=== PATIENT | female | born 1940 | race Hispanic/Latino ===

== ENCOUNTER 2018-06-01 17:20 | Emergency (ER) | payer OTHER ==
--- OUTSIDE RECORDS SUMMARY | 2018-06-01 17:22 | XMS REPORT | Continuity of Care Document ---
:1940 Author Organization Interface Problems Problem Status Onset Classification Date Comments Source Date Reported M54.12 Active 10/02/19 [place] [id number] [place] Diabetes Active Problem 10/16/2015 [facility] Diabetes Resolved Problem 10/16/2015 [facility] Gastric reflux Active Problem 10/16/2015 [facility] HTN - Resolved Problem 10/16/2015 [facility] Hypertension Active Problem 10/16/2015 [facility] RADICULOPATHY, Active [facility] C[facility] [place] Medications Medication Details Route Status Patient Ordering Order Source Instructions Provider Date Zofran 4 mg, 2 mL, Inactive Ortho Route: IVP, 016 and Drug form: INJ, Spine ONCE, Start date: 10/13/15 12:26:00 CDT, Stop date: 10/13/15 12:26:00 CDTNotes: (Same as: Zofran) MEDICATION WASTE Product Size: 4 mg Product Wasted: ___ mg Zofran 4 mg, 2 mL, Inactive Ortho Route: IVP, 016 and Drug form: INJ, Spine ONCE, Start date: 10/13/15 11:20:00 CDT, Stop date: 10/13/15 11:20:00 CDTNotes: (Same as: Zofran) MEDICATION WASTE Product Size: 4 mg Product Wasted: ___ mg hydrALAZINE 5 mg, 0.25 mL, Inactive Ortho Route: IVP, 016 and Drug form: INJ, Spine Q5Min, PRN Hypertension, Start date: 10/13/15 10:50:00 CDT, Stop date: 10/13/15 21:00:00 CDTNotes: (Same as: Apresoline) Push over 5 minutes midazolam 1 mg, 1 mL, Inactive Ortho Route: IVP, 016 and Drug form: INJ, Spine Q5Min, PRN Sedation, Start date: 10/13/15 10:48:00 CDT, Stop date: 10/13/15 21:00:00 CDTNotes: (Same as: Versed) MEDICATION WASTE Product Size: 2 mg Product Wasted: ___ mg Sublimaze 50 microgram, 1 Inactive Ortho mL, Route: IVP, 016 and Drug form: INJ, Spine Q5Min, PRN Sedation, Start date: 10/13/15 10:43:00 CDT, Stop date: 10/13/15 21:00:00 CDTNotes: (Same as: Sublimaze) Preservative free. Allergies, Adverse Reactions, Alerts Substance Category Reaction Severity Reaction Status Date Comments Source type Reported Immunizations Immunization Date Given Site Status Last Updated Comments Source Results Order Name Results Value Reference Date Interpretation Comments Source Range ELECTROLYTE POC 4.6 meq/L 3.5 - 5.1 10/12 Orth[facility] S Potassium /2015 and Spine ELECTROLYTE POC Sodium 137 meq/L 135 - 145 10/12 [facility] and Spine ELECTROLYTE POC Glucose 172 mg/dL 70 - 99 10/12 Ortho S /2015 and Spine ELECTROLYTE POC Ion Ca 1.23 mMol/L 1.05 - 10/12 Ortho S 1.25 and Spine ELECTROLYTE POC 17.7 g/dL 12.0 - 10/12 Ortho S Hemoglobin 16.0 and Spine ELECTROLYTE POC 52.0 % 36.0 - 10/12 Ortho S Hematocrit 48.0 and Spine ELECTROLYTE POC AGAP 17.0 meq/L 10.0 - 10/12 Ortho S 20.0 and Spine ELECTROLYTE eGFR 62 10/12 Result Comment: The eGFR is calculated using the CKD-EPI formula. In most young, healthy individuals the eGFR will be >90 mL/ min/1.73m2. The eGFR declines with age. An eGFR of 60-89 may be normal in Ortho S mL/min/1.73 /2015 some populations, particularly the elderly, for whom the CKD-EPI formula has not been extensively validated. Use of the eGFR is not recommended in the following populations: and Spine m2 Individuals with unstable creatinine concentrations, including patients and those with serious co-morbid conditions. Patients with extremes in muscle mass or diet. The data above are obtained from the National Kidney Disease Education Program (NKDEP) which additionally recommends that when the eGFR is used in patients with extremes of body mass index for purposes of drug dosing, the eGFR should be multiplied by the estimated BMI. ELECTROLYTE POC 104 meq/L 95 - 109 10/12 Ortho S Chloride and Spine ELECTROLYTE POC Carbon 22 mEq/dL 24 - 32 10/12 Ortho S Dioxide and Spine ELECTROLYTE POC BUN 15 mg/dL 7 - 22 10/12 Ortho S /2015 and Spine ELECTROLYTE POC 0.9 mg/dL 0.5 - 1.4 10/12 Ortho S Creatinine and Spine Spine Spine EXAM: POST MYELOGRAM CT SCAN OF CERVICAL SPINE 10/12 - [facility] cervical /2015 - [place] myelogram myelogram CT CT DATE: 10/13/2015 10:08 AM CDT Read by: Tejas Winchester MD Dictated Date/time: 10/13/15 15:12 Electronically Signed by: Tejas Winchester MD 10/13/15 15:30 FINAL REPORT INDICATION: radiculopathy, cervical region. M 54.12, neck pain COMPARISON: None. TECHNIQUE: Axial slices obtained through the cervical spine at appropriate intervals following cervical myelogram. Sagittal and coronal reformatted images were obtained. FINDINGS: Mild kyphotic deformity cervical spine with marked disc degeneration and spondylosis C4-C5 and C5-C6 levels. There is moderate disc degeneration at C2-C3 , C3-C4 and mild disc degeneration at C6-C7.. Bones are osteoporotic without vertebral body compression, lytic or blastic lesion and no paraspinal soft tissue mass noted. Cervical cord and intradural extra medullary space are unremarkable. Atlantoaxial articulation shows degeneration without subluxation. Findings at specific levels: C2-C3: 2 mm posterior disc osteophyte complex indents thecal sac. No mass effect on cord or canal stenosis. Moderate hypertrophic facetal arthrosis to the right with probable fusion. Oiye-xp-mxlbttds right foraminal narrowing. C3-C4: Wreu-nv-mughllvg grade 1 degenerative anterolisthesis of C3 on C4 with a 4 -- 5 mm posterior broad-based disc osteophyte complex indenting ventral cord with posterior cord displacement there and mild central canal narrowing. Cord is mildly flattened. Facet arthrosis greater to the left with hypertrophy noted livg-bm-zthtbjsl left and mild right foraminal narrowing. C4-C5: Slight degenerative retrolisthesis of C4 on C5 with a 3 -- 4 mm posterior disc osteophyte complex mildly compressing and flattening cord against prominent ligament flavum with mild to moderate ce ntral canal stenosis and mild cord flattening. Vdtl-aa-dtootkfb bilateral foraminal narrowing secondary to facet and uncovertebral joint degeneration C5-C6: Mild degenerative retrolisthesis of C5 on C6 with a 4 -- 5 mm posterior disc osteophyte complex compressing cord against posterior elements. There is bpab-gm-vkdjggwo central canal stenosis with cord flattening there is mild to moderate bilateral foraminal narrowing. C6-C7: 3 -- 4 mm posterior disc osteophyte complex indenting ventral thecal sac abutting cord with mild canal narrowing. No definite cord compression. Mild bilateral foraminal narrowing. C7-T1: No posterior disc bulge protrusion or herniation. There is facet arthrosis without foraminal stenosis. IMPRESSION: 1. Multilevel disc degeneration most pronounced at C4-C5 and C5-C6 levels with mild kyphotic deformity cervical spine. 2. Moderate posterior disc osteophyte complexes encroach on ventral cord with probable cord compression at C4-C5 and C5-C6 levels. There may be mild cord compression at C3-C4 as well. 3. Multilevel facetal arthrosis as described above. Spine Spine EXAM: Cervical MYELOGRAM 10/12 - [facility] /2015 - [place] myelogram myelogram DX DX DATE: 10/13/2015 10:07 AM CDT Read by: Tejas Winchester MD Dictated Date/time: 10/13/15 15:30 Electronically Signed by: Tejas Winchester MD 10/13/15 15:42 FINAL REPORT INDICATION: radiculpathy, cervical region. COMPARISON: None. DESCRIPTION OF PROCEDURE: Risks and benefits of the examination were explained to the patient prior to beginning procedure. The patient appeared to understand the risks and benefits of procedure and inf ormed consent was obtained. The patient was prepped and draped in the usual sterile fashion. Light monitored intravenous sedation was provided to the patient during the examination, secondary to patient anxiety and apprehension. The patient was assessed prior to the procedure and found to be an appropriate candidate for monitored conscious sedation, ASA class 2. Intravenous access was established. Anisa sed 1 mg plus fentanyl 150 micrograms was administered intravenously. The patient was directly monitored by the radiologist for a total duration of 15 minutes. Heart rate, blood pressure and oxygen satu ration were monitored during this period. Local anesthesia was affected with lidocaine 1% without epinephrine, administered subcutaneously. A 27-gauge spinal needle was directed into the thecal sac at t he L2-L3 level via intralaminar approach under fluoroscopic guidance. Puncture of the thecal sac resulted in return of clear CSF. Subsequently, 12 cc Omnipaque 240 non-ionic contrast was injected into t he subarachnoid space without incident. Multiple spot films and overhead films were obtained. Total fluoroscopy time 1 minute 53 seconds. Total radiation dose 1097.2 uGy*cm2 No complications were encountered. The patient was monitored by the nursing staff for duration of one hour following the procedure. FINDINGS: C2-C3 shows mild ventral and dorsal extradural defects with mild narrowing subarachnoid space. C3-C4 shows hohe-ej-vbvirhna ventral and mild dorsal extradural defects mildly encroaching upon ventral cord with pscz-jp-dkcteqab narrowing subarachnoid space C4-C5 shows moderate ventral indentation of thecal sac indenting cord with posterior cord displacement.. Cord appears to be mildly flattened against the posterior elements with moderate central canal stenosis C5-C6 shows mild ventral extradural defect without definite encroachment upon cord. There is mild to moderate narrowing subarachnoid space. C6-C7 shows mild ventral extradural defect with only minimal narrowing surrounded space. C7-T1 shows no extradural defects or narrowing subarachnoid space. There is mild underfilling of cervical nerve root sleeves from C4 through C8 bilaterally. IMPRESSION: 1. 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 I suspect cord is compressed this level. 2. C3-C4 and C5-C6 also show ventral extradural defects with narrowing subarachnoid space. 3. Multiple cervical nerve root sleeve filling defects bilaterally throughout cervical spine ELECTROLYTE POC 4.2 meq/L 3.5 - 5.1 08/12 [facility] Potassium /2015 and Spine ELECTROLYTE POC Sodium 135 meq/L 135 - 145 08/12 [facility] S /2015 and Spine ELECTROLYTE POC 0.8 mg/dL 0.5 - 1.4 08/12 [facility] Creatinine /2015 and Spine ELECTROLYTE POC BUN 16 mg/dL 7 - 22 08/12 [facility] S /2015 and Spine ELECTROLYTE POC Carbon 20 mEq/dL 24 - 32 08/12 [facility] Dioxide and Spine ELECTROLYTE POC 105 meq/L 95 - 109 08/12 [facility] Chloride /2015 and Spine ELECTROLYTE POC 49.0 % 36.0 - 09/28 Ortho S Hematocrit 48.0 /2016 and Spine ELECTROLYTE POC Ion Ca 1.11 mMol/L 1.05 - 09/28 Ortho S 1.25 and Spine ELECTROLYTE eGFR 72 09/28 Result Comment: The eGFR is calculated using the CKD-EPI formula. In most young, healthy individuals the eGFR will be >90 mL/ min/1.73m2. The eGFR declines with age. An eGFR of 60-89 may be normal in Ortho S mL/min/1.73 /2016 some populations, particularly the elderly, for whom the CKD-EPI formula has not been extensively validated. Use of the eGFR is not recommended in the following populations: and Spine m2 Individuals with unstable creatinine concentrations, including patients and those with serious co-morbid conditions. Patients with extremes in muscle mass or diet. The data above are obtained from the National Kidney Disease Education Program (NKDEP) which additionally recommends that when the eGFR is used in patients with extremes of body mass index for purposes of drug dosing, the eGFR should be multiplied by the estimated BMI. ELECTROLYTE POC AGAP 16.0 meq/L 10.0 - 09/28 Ortho S 20.0 /2015 and Spine ELECTROLYTE POC 16.7 g/dL 12.0 - 09/28 Ortho S Hemoglobin 16.0 /2015 and Spine ELECTROLYTE POC Glucose 195 mg/dL 70 - 99 09/28 Ortho S /2016 and Spine Vital Signs Vital Sign Value Date Comments Source Heart Rate 71 10/13/2015 [facility] Respitory Rate 18 10/13/2015 [facility] Systolic (mm Hg) 165 10/13/2015 [facility] Diastolic (mm Hg) 70 10/13/2015 [facility] Respitory Rate 16 10/13/2015 [facility] Heart Rate 75 10/13/2015 [facility] Respitory Rate 18 10/13/2015 [facility] Systolic (mm Hg) 133 10/13/2015 [facility] Diastolic (mm Hg) 68 10/13/2015 [facility] Heart Rate 75 10/13/2015 [facility] Systolic (mm Hg) 155 10/13/2015 [facility] Spine Diastolic (mm Hg) 86 10/13/2015 [facility] Weight 77.273 10/13/2015 [facility] BMI Calculated 34.41 10/13/2015 [facility] Height 149.86 cm 10/13/2015 [facility] Temperature Oral (F) 97.8 F 10/13/2015 [facility] Sp[facility] BMI Calculated 34.41 09/29/2015 [facility] Sp[facility] Weight 77.273 09/29/2015 [facility] Sp[facility] Height 149.86 cm 09/29/2015 [facility] Heart Rate 76 09/29/2015 [facility] Temperature Oral (F) 97.9 F 09/29/2015 [facility] Systolic (mm Hg) 197 09/29/2015 [facility] Diastolic (mm Hg) 100 09/29/2015 [facility] Respitory Rate 20 09/29/2015 [facility] Encounters Location Location Encounter Encounter Reason Attending ADM DC Status Source Details Type Number For Provider Date Date Visit [facility] Outpatient [id number] Fernie 09/28 09/29 [facility] Outpatient [id number] Fernie 10/12 10/13 [facility] Procedures Procedure Code Date Perfomer Comments Source Abdominal [id number] Ortho hysterectomy and Spine Cholecystectomy [id number] [facility] Excision of lesion of [id number] Ortho phalanges of foot and Spine
--- OUTSIDE RECORDS SUMMARY | 2018-06-01 17:22 | XMS REPORT | Clinical Summary ---
:1940 [facility] Address [address] [place] [address] Care Team Providers Name Role Phone Unavailable Primary Care Provider Unavailable Allergies Active Allergy Reactions Severity Noted Date Comments Codeine 03/21/2016 Propoxyphene 03/21/2016 Abciximab Other (See Comments) 03/22/2016 Decrease in platelet count to 6 Medications Medication Sig Dispensed Refills Start Date End Date Status omeprazole (PRILOSEC) Take 40 mg by 0 Active 40 MG capsule mouth daily. metoprolol (LOPRESSOR) Take 50 mg by 0 Active 50 MG tablet mouth 2 (two) times daily. glipiZIDE (GLUCOTROL) Take 5 mg by mouth 0 Active 5 MG tablet 2 (two) times daily before meals. HYDROcodone-acetaminop Take 1 tablet by 0 Active hen (NORCO 7.5-325) mouth every 6 7.5-325 mg per tablet (six) hours as needed for Pain. traMADol (ULTRAM) 50 Take 50 mg by 0 Active mg tablet mouth every 6 (six) hours as needed for Pain. melatonin 5 mg Tab Take 1 tablet (5 30 tablet 0 03/26/2016 Active tablet mg total) by mouth every night as needed. prasugrel (EFFIENT) 10 Take 1 tablet (10 30 tablet 0 03/26/2016 Active mg Tab tablet mg total) by mouth daily. Active Problems Problem Noted Date Retroperitoneal hematoma 03/23/2016 Acute respiratory failure with hypoxemia 03/22/2016 Unstable angina 03/21/2016 ST segment depression 03/21/2016 HTN (hypertension) 03/21/2016 HLD (hyperlipidemia) 03/21/2016 DM (diabetes mellitus screen) 03/21/2016 Immunizations Name Dates Previously Given Next Due Pneumococcal Polysaccharide (Pneumovax) 03/23/2016 Social History Tobacco Use Types Packs/Day Years Used Date Never Smoker Sex Assigned at Date Recorded Not on file Job Start Date Occupation Industry Not on file Not on file Not on file Travel History Travel Start Travel End No recent travel history available. Last Filed Vital Signs Not on file Plan of Treatment Not on file Implants Implanted Type Area Commutator Inspector Device Shelf Model / Identifier Expiration Serial / Date Lot Device Clsr Angio-Seal Vip 6fr [id number] - [id number] Cardiovascular N/A: Groin ST QUANG 11/16/2016 [id number] / Implanted: Qty: 1 on 03/21/2016 by Miguel Ángel Chaudhry MD MED: CARDIAC / [id number] [id number] Synergy Stents-Coronary N/A: [place] 01/15/2017 [id number] / Implanted: Qty: 1 on 03/21/2016 by Miguel Ángel Chaudhry MD Coronary SCIENTIFIC / [id number] Results Not on fileafter 05/31/2017 Insurance Payer Benefit Plan / Group Subscriber ID Type Phone Address [employer] xxxxxxxx Maps Contracted Advance Directives For more information, please contact:[address] [phone] Code Status Date Activated Date Inactivated Comments Full Code 03/21/2016 6:40 PM 03/26/2016 4:41 PM This code status was determined by: Patient
[2018-06-01] MEDS ORDERED: FENTANYL CITR 100 MCG/2 ML ONE (18:19)
[2018-06-01 18:21] LABS: Absolute Lymphocytes (CBC) 2.2 K/uL (0.7-4.9); Absolute Neutrophil 6.7 K/uL (1.8-8.0); Basophils % 0.9 % (0-1.3); Eosinophils % 2.9 % (0-4.4); Hematocrit 43.2 % (36.0-45.0); Lymphocytes % 21.8 % (15.3-44.8); MPV 8.7 fL (7.6-11.3); Monocytes % 9.5 % (3.3-12.3); RBC Red Blood Cell Count 4.54 M/uL (3.86-4.86)
[2018-06-01 18:47] LABS: ALT/SGPT 20 U/L (12-78); AST/SGOT 25 U/L (15-37); Albumin 3.5 g/dL (3.4-5.0); Alkaline Phosphatase 113 U/L (45-117); BUN Blood Urea Nitrogen 11 mg/dL (7-18); Bicarbonate 30 mmol/L (21-32); Bilirubin Direct 0.1 mg/dL (0-0.2); Bilirubin Total 0.3 mg/dL (0.2-1.0); Glucose Level 177 mg/dL (74-106); Magnesium 2.3 mg/dL (1.8-2.4); NT PRO-BNP 350 pg/mL (<450); Protein, Total 7.6 g/dL (6.4-8.2); Sodium Level 145 mmol/L (136-145); Troponin (Emerg Dept Use Only) < 0.02 ng/mL (0.0-0.045)
--- NOTE | 2018-06-01 19:16 | RAD REPORT ---
EXAM DESCRIPTION: Chelsie Single View06/01/2018 6:50 pm CLINICAL HISTORY: cough COMPARISON: July 2017 FINDINGS: The lungs appear clear of acute infiltrate. The heart is normal size IMPRESSION: No acute abnormalities displayed
[2018-06-01] MEDS ORDERED: POTASSIUM 25 MEQ EFFERV TAB ONE (19:44)
--- NOTE | 2018-06-01 20:27 | ER ---
Nurse's Notes [facility] Name: Judy Puri Age: 77 yrs Sex: Female : 1940 Arrival Date: 06/01/2018 Time: 17:20 Bed 2 Private MD: Roscoe Pino E Diagnosis: Chest pain on breathing Presentation: 06/01 17:31 Presenting complaint: Patient states: Cough x 1 week with back pain. Pt reports that ss her back pain became much more severe approximately 1 hour ago. Transition of care: patient was not received from another setting of care. Onset of symptoms was May 25, 2018. Risk Assessment: Do you want to hurt yourself or someone else? Patient reports no desire to harm self or others. Care prior to arrival: None. 17:31 Acuity: JONATHAN 2 ss 17:31 Method Of Arrival: Ambulatory ss 20:34 Initial Sepsis Screen: Does the patient meet any 2 criteria? No. Patient's initial ak1 sepsis screen is negative. Does the patient have a suspected source of infection? No. Patient's initial sepsis screen is negative. Triage Assessment: 19:42 General: Appears uncomfortable, Behavior is agitated, anxious, fussy. Respiratory: ak1 Onset: The symptoms/episode began/occurred at an unknown time. the patient has mild shortness of breath. Historical: - Allergies: 17:34 Codeine; ss 17:34 Propoxyphene HCl; ss - Home Meds: 19:42 Celecoxib Oral [Active]; Glipizide Oral [Active]; Levofloxacin Oral [Active]; ak1 losartan-hydrochlorothiazide Oral [Active]; Metoprolol Tartrate Oral [Active]; Omeprazole Oral [Active]; pantoprazole Oral [Active]; - PMHx: 17:34 Atrial Fib; Diabetes - NIDDM; Myocardial infarction; Hypertension; ss - PSHx: 17:34 Hysterectomy; Cholecystectomy; Bladder suspension; ss - Immunization history:: Adult Immunizations up to date. - Social history:: Smoking status: Patient/guardian denies using tobacco. - Ebola Screening: : Patient denies exposure to infectious person Patient denies travel to an Ebola-affected area in the 21 days before illness onset. Screenin:48 Abuse screen: Denies threats or abuse. Denies injuries from another. Nutritional sv screening: No deficits noted. Tuberculosis screening: No symptoms or risk factors identified. Fall Risk None identified. Assessment: 18:00 General: Appears in no apparent distress. uncomfortable, well developed, Behavior is sv cooperative, appropriate for age, fussy, restless. Pain: Complains of pain in back and chest Pain currently is 10 out of 10 on a pain scale. Quality of pain is described as sharp, Is continuous, Aggravated by repositioning, breathing, coughing, laughing Noted to be grimacing, guarding, moaning, resistant to movement. Neuro: Level of Consciousness is awake, alert, obeys commands, Oriented to person, place, time, situation, Moves all extremities. Full function Speech is normal. Cardiovascular: Patient's skin is warm and dry. Pulses are 3+ in right brachial artery and left brachial artery. Cardiovascular: Rhythm is sinus rhythm. Respiratory: Reports cough that is non-productive, pain with cough pain with movement pain with respiration Airway is patent Respiratory effort is even, unlabored, Respiratory pattern is symmetrical, tachypnea. Derm: Skin is normal. Musculoskeletal: Range of motion: intact in all extremities. 19:40 Reassessment: Patient appears in no apparent distress at this time. pt continues to c/o ak1 lung pain even after pain medications, ERP notified. 19:51 Reassessment: pt refused BP. ERP asked about more pain medication, ERP stated there is ak1 no source of pain. ERP states he will go speak with pt soon. 20:11 Reassessment: blanket given, at bedside. ak1 20:34 Respiratory: Breath sounds are clear bilaterally. ak1 Vital Signs: 17:34 Pulse 75; Resp 23; Pulse Ox 96% on R/A; Weight 73.03 kg; Height 4 ft. 11 in. 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 as 17:21 Roscoe Pino MD is Private Physician. as 17:30 Todd Loya MD is Attending Physician. gs 17:33 Triage completed. ss 17:34 Arm band placed on right wrist. ss 17:44 Inna Ruelas, RN is Primary Nurse. sv 17:48 ED physician to see patient. sv 17:48 Patient has correct armband on for positive identification. sv 17:57 EKG done, by crystal growing technician. reviewed by Todd Loya MD. sm3 18:05 Initial lab(s) drawn, by me, sent to lab. Inserted saline lock: 20 gauge in left sv forearm, using aseptic technique. Blood collected. Flushed left forearm with 5 ml normal saline. 18:20 Awaiting lab results, Awaiting for x-ray. sv 18:29 X-ray(s) taken. sv 18:50 XRAY Chest (1 view) In Process Unspecified. EDMS 19:03 Report given to Monica HURST and Melia HURST. sv 19:04 Primary Nurse role handed off by Inna Ruelas RN sv 19:11 Monica Burnham RN is Primary Nurse. ak1 19:42 No provider procedures requiring assistance completed. ak1 20:34 IV discontinued, intact, bleeding controlled, No redness/swelling at site. Pressure ak1 dressing applied. Administered Medications: 18:16 Drug: fentaNYL (PF) 25 mcg Route: IVP; Site: left forearm; sv 19:38 Follow up: Response: No adverse reaction ak1 19:37 Drug: Potassium Effervescent Tablet 50 mEq Route: PO; ak1 19:38 Follow up: Response: No adverse reaction ak1 Outcome: 20:26 Discharge ordered by . gs 20:34 Discharged to home via wheelchair, with family. ak1 20:34 Condition: good 20:34 Discharge instructions given to patient, family, Instructed on discharge instructions, follow up and referral plans. Demonstrated understanding of instructions, follow-up care. 20:35 Patient left the ED. ak1 Signatures: Dispatcher [employer] EDMS Inna Ruelas RN RN Roseanne Mckinley Shelby, RN RN Monica Burnham RN RN ak1 Todd Loya MD MD gs Betty Alan sm3
--- NOTE | 2018-06-01 20:27 | EDPHYS ---
Physician Documentation [facility] Name: Judy Puri Age: 77 yrs Sex: Female : 1940 Arrival Date: 06/01/2018 Time: 17:20 Bed 2 Private MD: Roscoe Pino E ED Physician Todd Loya HPI: 06/01 20:21 This 77 yrs old Female presents to ER via Ambulatory with complaints of gs Shortness Of Breath, Lung Pain. 20:23 The patient or guardian reports chest pain that is located primarily in the anterior gs chest wall, left. Onset: this morning, while at [employer] office, says has not taken bp meds today, recent cough. Associated signs and symptoms: Pertinent negatives: diaphoresis, vomiting. The chest pain is described as sharp. Duration: The patient or guardian reports multiple episodes, that are intermittent, that wax and wane, with no pattern. Modifying factors: the symptoms are aggravated by deep breath. Severity of pain: At its worst the pain was moderate in the emergency department the pain has improved mildly. The patient has experienced similar episodes in the past, multiple times. Historical: - Allergies: 17:34 Codeine; ss 17:34 Propoxyphene HCl; ss - Home Meds: 19:42 Celecoxib Oral [Active]; Glipizide Oral [Active]; Levofloxacin Oral [Active]; ak1 losartan-hydrochlorothiazide Oral [Active]; Metoprolol Tartrate Oral [Active]; Omeprazole Oral [Active]; pantoprazole Oral [Active]; - PMHx: 17:34 Atrial Fib; Diabetes - NIDDM; Myocardial infarction; Hypertension; ss - PSHx: 17:34 Hysterectomy; Cholecystectomy; Bladder suspension; ss - Immunization history:: Adult Immunizations up to date. - Social history:: Smoking status: Patient/guardian denies using tobacco. - Ebola Screening: : Patient denies exposure to infectious person Patient denies travel to an Ebola-affected area in the 21 days before illness onset. ROS: 20:23 All other systems are negative. gs Exam: 20:23 Head/Face: Normocephalic, atraumatic. Eyes: Pupils equal round and reactive to light, gs extra-ocular motions intact. Lids and lashes normal. Conjunctiva and sclera are non-icteric and not injected. Cornea within normal limits. Periorbital areas with no swelling, redness, or edema. ENT: Nares patent. No nasal discharge, no septal abnormalities noted. Tympanic membranes are normal and external auditory canals are clear. Oropharynx with no redness, swelling, or masses, exudates, or evidence of obstruction, uvula midline. Mucous membranes moist. Neck: Trachea midline, no thyromegaly or masses palpated, and no cervical lymphadenopathy. Supple, full range of motion without nuchal rigidity, or vertebral point tenderness. No Meningismus. Chest/axilla: Normal chest wall appearance and motion. Nontender with no deformity. No lesions are appreciated. Cardiovascular: Regular rate and rhythm with a normal S1 and S2. No gallops, murmurs, or rubs. Normal PMI, no JVD. No pulse deficits. Respiratory: Lungs have equal breath sounds bilaterally, clear to auscultation and percussion. No rales, rhonchi or wheezes noted. No increased work of breathing, no retractions or nasal flaring. Abdomen/GI: Soft, non-tender, with normal bowel sounds. No distension or tympany. No guarding or rebound. No evidence of tenderness throughout. Back: No spinal tenderness. No costovertebral tenderness. Full range of motion. Skin: Warm, dry with normal turgor. Normal color with no rashes, no lesions, and no evidence of cellulitis. MS/ Extremity: Pulses equal, no cyanosis. Neurovascular intact. Full, normal range of motion. Neuro: Awake and alert, GCS 15, oriented to person, place, time, and situation. Cranial nerves II-XII grossly intact. Motor strength 5/5 in all extremities. Sensory grossly intact. Cerebellar exam normal. Normal gait. 20:23 Constitutional: The patient appears alert, awake. 20:23 ECG was reviewed by the Attending Physician. Vital Signs: 17:34 Pulse 75; Resp 23; Pulse Ox 96% on R/A; Weight 73.03 kg; Height 4 ft. 11 in. (149.86 ss cm); Pain 10/10; 17:50 BP 198 / 96; Pulse 70; Resp 24; Pulse Ox 99% ; sv 19:40 Pulse 76; Resp 14; Temp 98.1; Pulse Ox 97% on R/A; ak1 20:33 BP 188 / 94; Pulse 67; Resp 16; Temp 98.1; Pulse Ox 98% on R/A; ak1 17:34 Body Mass Index 32.52 (73.03 kg, 149.86 cm) ss 20:33 pt stated she did not take her bp meds today due to being at the [employer] office ak1 MDM: 18:00 Patient medically screened. gs 20:23 Differential diagnosis: abnormal EKG, coronary artery disease pleurisy, pneumonia, gs pulmonary embolus. Data reviewed: vital signs, nurses notes. Data reviewed: old medical records, lab test result(s), EKG, radiologic studies. Counseling: I had a detailed discussion with the patient and/or guardian regarding: the historical points, exam findings, and any diagnostic results supporting the discharge/admit diagnosis, lab results, radiology results, the need for outpatient follow up. Response to treatment: the patient's symptoms have markedly improved after treatment, the patient's condition has returned to base line, and as a result, I will discharge patient. 06/01 18:00 Order name: Basic Metabolic Panel; Complete Time: 19: 06/01 18:00 Order name: CBC with Diff; Complete Time: 19: 06/01 18:00 Order name: LFT's; Complete Time: 19: 06/01 18:00 Order name: Magnesium; Complete Time: 19: 06/01 18:00 Order name: NT PRO-BNP; Complete Time: 19: 06/01 18:00 Order name: PT-INR; Complete Time: 19: 06/01 18:00 Order name: Troponin (emerg Dept Use Only); Complete Time: 19: 06/01 18:00 Order name: XRAY Chest (1 view); Complete Time: 19:26 06/01 18:00 Order name: EKG; Complete Time: 18:01 06/01 18:00 Order name: Cardiac monitoring; Complete Time: 18:16 06/01 18:00 Order name: EKG - Nurse/Tech; Complete Time: 18:17 06/01 18:00 Order name: D-Dimer; Complete Time: 19:09 06/01 18:00 Order name: IV Saline Lock; Complete Time: 18:16 06/01 18:00 Order name: Labs collected and sent; Complete Time: 18:16 06/01 18:00 Order name: O2 Per Protocol; Complete Time: 18: 06/01 18:00 Order name: O2 Sat Monitoring; Complete Time: 18: EC:23 Rate is 72 beats/min. Rhythm is regular. NM interval is normal. QRS interval is normal. gs QT interval is normal. T waves are Flattened. Clinical impression: NSR w/ Non-specific ST/T Changes. Interpreted by me. Administered Medications: 18:16 Drug: fentaNYL (PF) 25 mcg Route: IVP; Site: left forearm; sv 19:38 Follow up: Response: No adverse reaction ak1 19:37 Drug: Potassium Effervescent Tablet 50 mEq Route: PO; ak1 19:38 Follow up: Response: No adverse reaction ak1 Disposition: 06/01/18 20:26 Discharged to Home. Impression: Chest pain on breathing. - Condition is Stable. - Discharge Instructions: Nonspecific Chest Pain. - Medication Reconciliation Form, Thank You Letter, Antibiotic Education, Prescription Opioid Use form. - Follow up: Private Physician; When: 1 - 2 days; Reason: Re-evaluation by your physician. Signatures: Dispatcher [employer] Inna Romo RN RN sv Anderson, Corey, MD MD cha Smirch, Shelby, RN RN ss Krenek, Amber, RN RN ak Todd Loya MD MD Corrections: (The following items were deleted from the chart) 20:35 20:26 06/01/2018 20:26 Discharged to Home. Impression: Chest pain on breathing. ak1 Condition is Stable. Forms are Medication Reconciliation Form, Thank You Letter, Antibiotic Education, Prescription Opioid Use. Follow up: Private Physician; When: 1 - 2 days; Reason: Re-evaluation by your physician. gs
[2018-06-01 20:46] VITALS: TEMP 98.1
[2018-06-01 20:48] VITALS: BP 188/94; O2SAT 98
--- NOTE | 2018-06-02 05:49 | EKG ---
Test Date: 2018-06-01 Test Time: 17:43:42 Head Cleaning Porter: MIL[place] MEASUREMENT RESULTS: Intervals: Rate: 72 MO: 146 QRSD: 78 QT: 346 QTc: 378 [place]: P: 29 MO: 146 QRS: 26 T: 200 INTERPRETIVE STATEMENTS: Sinus rhythm with premature supraventricular complexes ST & T wave abnormality, consider inferolateral ischemia Abnormal ECG Compared to ECG 08/09/2016 14:49:53 Atrial premature complex(es) now present Sinus bradycardia no longer present Electronically Signed On 06-02-18 05:48:48 CDT by Jese Stewart
== END 2018-06-01 20:35 | disposition home or self-care (01) ==
LOC: ER 17:20
DX: R07.1 Chest pain on breathing (principal); R94.31 Abnormal electrocardiogram [ECG] [EKG]; E11.9 Type 2 diabetes mellitus without complications; I48.91 Unspecified atrial fibrillation; I10 Essential (primary) hypertension; I25.2 Old myocardial infarction; Z79.84 Long term (current) use of oral hypoglycemic drugs; Z79.899 Other long term (current) drug therapy
CPT/HCPCS: 93005; 85025; 80048; 36415; 83735; 85610; 85379; 80076; 84484; 83880; 71045; J3010; 96374; 99284

== ENCOUNTER 2018-06-08 22:34 | Emergency (ER) | payer OTHER ==
--- OUTSIDE RECORDS SUMMARY | 2018-06-08 22:37 | XMS REPORT | Clinical Summary ---
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 Shelf Model / Identifier Expiration Serial / Date Lot Device Clsr Angio-Seal Vip 6fr [id number] - [id number] Cardiovascular N/A: Groin ST QUANG 11/16/2016 [id number] / Implanted: Qty: 1 on 03/21/2016 by Miguel Ángel Chaudhry MD MED: CARDIAC / SURG [id number] Synergy Stents-Coronary N/A: [place] 01/15/2017 [id number] / Implanted: Qty: 1 on 03/21/2016 by Miguel Ángel Chaudhry MD Coronary SCIENTIFIC / [id number] Results Not on fileafter 06/07/2017 Insurance Payer Benefit Plan / Group Subscriber ID Type Phone Address [employer] xxxxxxxx Maps Contracted Advance Directives For more information, please contact:[address] [phone] Code Status Date Activated Date Inactivated Comments Full Code 03/21/2016 6:40 PM 03/26/2016 4:41 PM This code status was determined by: Patient
--- OUTSIDE RECORDS SUMMARY | 2018-06-08 22:37 | XMS REPORT | Continuity of Care Document ---
:1940 Author Organization Interface Problems Problem Status Onset Classification Date Comments Source Date Reported M54.12 Active 10/02/19 [place] [address] [place] Diabetes Active Problem 10/16/2015 [facility] Diabetes Resolved Problem 10/16/2015 [facility] Gastric reflux Active Problem 10/16/2015 [facility] HTN - Resolved Problem 10/16/2015 [facility] Hypertension Active Problem 10/16/2015 [facility] RADICULOPATHY, Active [facility] CERVICAL [facility] [place] Medications Medication Details Route Status Patient Ordering [...] CT SCAN OF CERVICAL SPINE 10/12 - [facility] cervical /2015 - [place] myelogram myelogram CT CT DATE: 10/13/2015 10:08 [...] arthrosis to the right with probable fusion. Coka-qg-uwjzdmag right foraminal narrowing. C3-C4: Wmao-fw-dtoksyzz grade 1 degenerative anterolisthesis of C3 on C4 with a 4 -- 5 mm posterior broad-based disc osteophyte complex indenting ventral cord with posterior cord displacement there and mild central canal narrowing. Cord is mildly flattened. Facet arthrosis greater to the left with hypertrophy noted xwov-or-gngtlisi left and mild right foraminal narrowing. C4-C5: Slight degenerative retrolisthesis of C4 on C5 with a 3 -- 4 mm posterior disc osteophyte complex mildly compressing and flattening cord against prominent ligament flavum with mild to moderate ce ntral canal stenosis and mild cord flattening. Dqxa-wi-eamdzuhe bilateral foraminal narrowing secondary to facet and uncovertebral joint degeneration C5-C6: Mild degenerative retrolisthesis of C5 on C6 with a 4 -- 5 mm posterior disc osteophyte complex compressing cord against posterior elements. There is neyf-ar-sluntlhj central canal stenosis with cord flattening there [...] Spine Spine EXAM: Cervical MYELOGRAM 10/12 - [facility] [place] [facility] [place] - [place] myelogram myelogram DX DX DATE: 10/13/2015 10:07 [...] with mild narrowing subarachnoid space. C3-C4 shows lbrc-fc-dhtppcde ventral and mild dorsal extradural defects mildly encroaching upon ventral cord with mryq-nf-jjvcgnmu narrowing subarachnoid space C4-C5 shows moderate ventral [...] Type Number For Provider Date Date Visit [facility] Outpatient [id number] Fernie 09/28 09/29 [facility] Outpatient [id number] Fernie 10/12 10/13 [facility] Procedures Procedure Code Date Perfomer Comments Source Abdominal [id number] Ortho hysterectomy and Spine Cholecystectomy [id number] [facility] Excision of lesion of [id number] Ortho phalanges of foot and Spine
[2018-06-08 23:34] LABS: Protime INR 1.02
[2018-06-08 23:38] LABS: Absolute Lymphocytes (CBC) 0.8 K/uL (0.7-4.9); Absolute Monocytes 0.1 K/uL (0.1-1.3); Absolute Neutrophil 9.2 K/uL (1.8-8.0); Basophils % 0.6 % (0-1.3); Eosinophils % 0.2 % (0-4.4); Hematocrit 44.5 % (36.0-45.0); Lymphocytes % 8.3 % (15.3-44.8); MPV 9.3 fL (7.6-11.3); Monocytes % 1.4 % (3.3-12.3); RBC Red Blood Cell Count 4.77 M/uL (3.86-4.86)
[2018-06-08 23:51] LABS: ALT/SGPT 22 U/L (12-78); AST/SGOT 21 U/L (15-37); Albumin 3.6 g/dL (3.4-5.0); Alkaline Phosphatase 113 U/L (45-117); BUN Blood Urea Nitrogen 10 mg/dL (7-18); Bicarbonate 28 mmol/L (21-32); Bilirubin Direct 0.1 mg/dL (0-0.2); Bilirubin Total 0.4 mg/dL (0.2-1.0); Glucose Level 246 mg/dL (74-106); Magnesium 1.9 mg/dL (1.8-2.4); NT PRO-BNP 567 pg/mL (<450); Potassium 3.1 mmol/L (3.5-5.1); Protein, Total 7.7 g/dL (6.4-8.2); Sodium Level 142 mmol/L (136-145); Troponin (Emerg Dept Use Only) < 0.02 ng/mL (0.0-0.045)
[2018-06-09 00:22] LABS: Blood Morphology Comment NOT SEEN (NOT SEEN); Platelet Estimate ADEQ
--- NOTE | 2018-06-09 01:11 | ER ---
Nurse's Notes [facility] Name: Judy Puri Age: 77 yrs Sex: Female : 1940 Arrival Date: 06/08/2018 Time: 22:36 Bed 3 Private MD: Diagnosis: Palpitations Presentation: 06/08 22:59 Presenting complaint: Patient states: Pt saw Dr. Abreu for lung pain and was ea prescribed prednisone, pt reports she took two prednisone pills two hours apart. Pt reports the pain has not gone away and feels a flutter. Transition of care: patient was not received from another setting of care. Onset of symptoms was June 08, 2018. Risk Assessment: Do you want to hurt yourself or someone else? Patient reports no desire to harm self or others. Initial Sepsis Screen: Does the patient meet any 2 criteria? No. Patient's initial sepsis screen is negative. Does the patient have a suspected source of infection? No. Patient's initial sepsis screen is negative. Care prior to arrival: None. 22:59 Method Of Arrival: Wheelchair ea 22:59 Acuity: JONATHAN 2 ea Triage Assessment: 23:00 General: Appears uncomfortable, Behavior is cooperative, restless. Pain: Complains of ea pain in chest Pain currently is 10 out of 10 on a pain scale. Neuro: Level of Consciousness is awake, alert, obeys commands, Oriented to person, place, time, situation. Cardiovascular: Patient's skin is warm and dry. Parent/caregiver reports patient has had chest pain, palpitations. Respiratory: Airway is patent Respiratory effort is even, unlabored, Respiratory pattern is regular, symmetrical. GI: Abdomen is non-distended. Derm: Skin is pink, warm \T\ dry. Historical: - Allergies: 23:08 Codeine; ea 23:08 Propoxyphene HCl; ea - Home Meds: 23:08 Aspirin Oral [Active]; atorvastatin oral oral [Active]; losartan oral oral [Active]; ea Omeprazole Oral [Active]; Glipizide Oral [Active]; Metoprolol Tartrate Oral [Active]; gabapentin oral oral [Active]; Hydrocodone-Acetaminophen Oral [Active]; Furosemide Oral [Active]; 06/09 00:01 Celecoxib Oral [Active]; Levofloxacin Oral [Active]; losartan-hydrochlorothiazide Oral tl2 [Active]; pantoprazole Oral [Active]; - PMHx: 06/08 23:08 Atrial Fib; Diabetes - NIDDM; Hypertension; Myocardial infarction; ea - Immunization history:: Adult Immunizations up to date. - Social history:: Smoking status: Patient/guardian denies using tobacco. - Ebola Screening: : No symptoms or risks identified at this time. Screenin:11 Abuse screen: Denies threats or abuse. Nutritional screening: No deficits noted. ea Tuberculosis screening: No symptoms or risk factors identified. Fall Risk Assessment: 23:00 Reassessment: see triage assessment. ea 06/09 00:50 Reassessment: Patient and/or family updated on plan of care and expected duration. Pain ea level reassessed. Patient is alert, oriented x 3, equal unlabored respirations, skin warm/dry/pink. 01:50 Reassessment: Patient and/or family updated on plan of care and expected duration. Pain ea level reassessed. Patient is alert, oriented x 3, equal unlabored respirations, skin warm/dry/pink. Discharge instructions given to patient, verbalized the understanding of instructions. Pt discharged home with taken to vehicle via wheelchair pt tolerating well. Vital Signs: 06/08 23:09 BP 200 / 96; Pulse 75; Resp 19; Temp 98.2; Pulse Ox 95% on R/A; Weight 72.57 kg; Height ea 4 ft. 11 in. (149.86 cm); Pain 10/10; 23:56 BP 187 / 87; Pulse 79; Resp 22; Pulse Ox 95% on R/A; tl2 06/09 00:31 BP 188 / 94; Pulse 58; Resp 19; Pulse Ox 95% on R/A; tl2 00:49 BP 175 / 84; Pulse 53; Resp 19; Pulse Ox 95% on R/A; tl2 01:00 BP 184 / 91; Pulse 53; Resp 18; Pulse Ox 96% on R/A; ea 01:45 BP 180 / 83; Pulse 60; Resp 18; Pulse Ox 97% on R/A; ea 06/08 23:09 Body Mass Index 32.32 (72.57 kg, 149.86 cm) ea ED Course: 06/08 22:36 Patient arrived in ED. am2 22:59 Melia Roca, RN is Primary Nurse. ea 22:59 Inserted saline lock: 22 gauge in left antecubital area, using aseptic technique. Blood tl2 collected. 23:03 Triage completed. ea 23:09 Patient has correct armband on for positive identification. Placed in gown. Bed in low ea position. Call light in reach. Side rails up X2. 23:09 Arm band placed on right wrist. Patient placed in an exam room, on a stretcher, on ea threat monitoring analyst, on pulse oximetry. 23:30 Todd Loya MD is Attending Physician. 06/09 00:02 X-ray completed. Portable x-ray completed in exam room. Patient tolerated procedure kw well. 00:13 XRAY Chest (1 view) In Process Unspecified. EDMS 01:50 No provider procedures requiring assistance completed. IV discontinued, intact, ea bleeding controlled, No redness/swelling at site. Pressure dressing applied. Administered Medications: 01:45 Drug: Potassium Effervescent Tablet 50 mEq Route: PO; ea 01:57 Follow up: Response: Medication administered at discharge. ea 01:45 Drug: [place] 5 mg-325 mg 1 tabs Route: PO; ea 01:58 Follow up: Response: Medication administered at discharge. ea Outcome: 01:10 Discharge ordered by . 01:56 Discharged to home via wheelchair, with family. ea 01:56 Condition: improved 01:56 Discharge instructions given to patient, Instructed on discharge instructions, follow up and referral plans. Demonstrated understanding of instructions, follow-up care. 02:01 Patient left the ED. ea Signatures: Dispatcher [employer] EDMS Caroline Solano Taylor, RN RN tl2 Payal Addison Elena, RN RN ea Starr, Gregory, MD MD
--- NOTE | 2018-06-09 01:11 | EDPHYS ---
Physician Documentation [facility] Name: Judy Puri Age: 77 yrs Sex: Female : 1940 Arrival Date: 06/08/2018 Time: 22:36 Bed 3 Private MD: ED Physician Todd Loya HPI: 06/09 01:04 This 77 yrs old Female presents to ER via Wheelchair with complaints of heart gs flutters. 01:04 Context: The symptoms occur at rest. Onset: The symptoms/episode began/occurred gs acutely. Duration: The patient or guardian reports multiple episodes, that wax and wane, with no pattern. Modifying factors: The symptoms are aggravated by nothing. The symptoms are alleviated by nothing. Associated signs and symptoms: Pertinent negatives: chest pain. Severity of symptoms: At their worst the symptoms were moderate in the emergency department the symptoms have resolved. The patient has experienced similar episodes in the past, a few times. Historical: - Allergies: 06/08 23:08 Codeine; ea 23:08 Propoxyphene HCl; ea - Home Meds: 23:08 Aspirin Oral [Active]; atorvastatin oral oral [Active]; losartan oral oral [Active]; ea Omeprazole Oral [Active]; Glipizide Oral [Active]; Metoprolol Tartrate Oral [Active]; gabapentin oral oral [Active]; Hydrocodone-Acetaminophen Oral [Active]; Furosemide Oral [Active]; 06/09 00:01 Celecoxib Oral [Active]; Levofloxacin Oral [Active]; losartan-hydrochlorothiazide Oral tl2 [Active]; pantoprazole Oral [Active]; - PMHx: 06/08 23:08 Atrial Fib; Diabetes - NIDDM; Hypertension; Myocardial infarction; ea - Immunization history:: Adult Immunizations up to date. - Social history:: Smoking status: Patient/guardian denies using tobacco. - Ebola Screening: : No symptoms or risks identified at this time. ROS: 06/09 01:04 All other systems are negative. gs Exam: 01:04 Head/Face: Normocephalic, atraumatic. Eyes: Pupils equal round and reactive to light, gs extra-ocular motions intact. Lids and lashes normal. Conjunctiva and sclera are non-icteric and not injected. Cornea within normal limits. Periorbital areas with no swelling, redness, or edema. ENT: Nares patent. No nasal discharge, no septal abnormalities noted. Tympanic membranes are normal and external auditory canals are clear. Oropharynx with no redness, swelling, or masses, exudates, or evidence of obstruction, uvula midline. Mucous membranes moist. Neck: Trachea midline, no thyromegaly or masses palpated, and no cervical lymphadenopathy. Supple, full range of motion without nuchal rigidity, or vertebral point tenderness. No Meningismus. Chest/axilla: Normal chest wall appearance and motion. Nontender with no deformity. No lesions are appreciated. Cardiovascular: Regular rate and rhythm with a normal S1 and S2. No gallops, murmurs, or rubs. Normal PMI, no JVD. No pulse deficits. Respiratory: Lungs have equal breath sounds bilaterally, clear to auscultation and percussion. No rales, rhonchi or wheezes noted. No increased work of breathing, no retractions or nasal flaring. Abdomen/GI: Soft, non-tender, with normal bowel sounds. No distension or tympany. No guarding or rebound. No evidence of tenderness throughout. Back: No spinal tenderness. No costovertebral tenderness. Full range of motion. Skin: Warm, dry with normal turgor. Normal color with no rashes, no lesions, and no evidence of cellulitis. MS/ Extremity: Pulses equal, no cyanosis. Neurovascular intact. Full, normal range of motion. Neuro: Awake and alert, GCS 15, oriented to person, place, time, and situation. Cranial nerves II-XII grossly intact. Motor strength 5/5 in all extremities. Sensory grossly intact. Cerebellar exam normal. Normal gait. 01:04 Constitutional: The patient appears alert, awake. 01:04 ECG was reviewed by the Attending Physician. Vital Signs: 06/08 23:09 BP 200 / 96; Pulse 75; Resp 19; Temp 98.2; Pulse Ox 95% on R/A; Weight 72.57 kg; Height ea 4 ft. 11 in. (149.86 cm); Pain 10/10; 23:56 BP 187 / 87; Pulse 79; Resp 22; Pulse Ox 95% on R/A; tl2 06/09 00:31 BP 188 / 94; Pulse 58; Resp 19; Pulse Ox 95% on R/A; tl2 00:49 BP 175 / 84; Pulse 53; Resp 19; Pulse Ox 95% on R/A; tl2 01:00 BP 184 / 91; Pulse 53; Resp 18; Pulse Ox 96% on R/A; ea 01:45 BP 180 / 83; Pulse 60; Resp 18; Pulse Ox 97% on R/A; ea 06/08 23:09 Body Mass Index 32.32 (72.57 kg, 149.86 cm) ea MDM: 06/08 23:33 Patient medically screened. 06/09 01:09 Differential diagnosis: arrythmia, dehydration, stress disorder. Data reviewed: vital gs signs, nurses notes, old medical records, lab test result(s), EKG, radiologic studies. Counseling: I had a detailed discussion with the patient and/or guardian regarding: the historical points, exam findings, and any diagnostic results supporting the discharge/admit diagnosis. Response to treatment: the patient's symptoms have markedly improved after treatment, the patient's symptoms have resolved after treatment, and as a result, I will discharge patient. 06/08 23:07 Order name: Basic Metabolic Panel; Complete Time: 00:33 tl2 06/08 23:07 Order name: CBC with Diff; Complete Time: 00:33 tl2 06/08 23:07 Order name: LFT's; Complete Time: 00:33 tl2 06/08 23:07 Order name: Magnesium; Complete Time: 00:33 tl2 06/08 23:07 Order name: NT PRO-BNP; Complete Time: 00:33 tl2 06/08 23:07 Order name: PT-INR; Complete Time: 00:33 tl2 06/08 23:07 Order name: Troponin (emerg Dept Use Only); Complete Time: 00:33 tl2 06/08 23:07 Order name: XRAY Chest (1 view) tl2 06/08 23:07 Order name: EKG; Complete Time: 23:08 tl2 06/08 23:07 Order name: Cardiac monitoring; Complete Time: 23:10 tl2 06/08 23:07 Order name: EKG - Nurse/Tech; Complete Time: 23:10 tl2 06/08 23:41 Order name: Manual Differential; Complete Time: 00:33 EDMS 06/08 23:07 Order name: IV Saline Lock; Complete Time: 23:10 tl2 06/08 23:07 Order name: Labs collected and sent; Complete Time: 23:10 tl2 06/08 23:07 Order name: O2 Per Protocol; Complete Time: 23:2 06/08 23:07 Order name: O2 Sat Monitoring; Complete Time: 23:2 EC:04 Rate is 84 beats/min. Rhythm is regular. [place] interval is normal. QRS interval is normal. gs T waves are Flattened. Clinical impression: NSR w/ Non-specific ST/T Changes and Abnormal EKG without significant change. Interpreted by me. Administered Medications: 01:45 Drug: Potassium Effervescent Tablet 50 mEq Route: PO; ea 01:57 Follow up: Response: Medication administered at discharge. ea 01:45 Drug: Lostant 5 mg-325 mg 1 tabs Route: PO; ea 01:58 Follow up: Response: Medication administered at discharge. ea Disposition: 06/09/18 01:10 Discharged to Home. Impression: Palpitations. - Condition is Stable. - Discharge Instructions: Chronic Pain, Palpitations. - Medication Reconciliation Form, Thank You Letter, Antibiotic Education, Prescription Opioid Use form. - Follow up: Private Physician; When: 2 - 3 days; Reason: Re-evaluation by your physician. Signatures: Dispatcher [employer] EDMS Nancy Melo RN RN tl2 Melia Roca RN RN Todd Lawrence MD MD Corrections: (The following items were deleted from the chart) 02:01 01:10 06/09/2018 01:10 Discharged to Home. Impression: Palpitations. Condition is ea Stable. Forms are Medication Reconciliation Form, Thank You Letter, Antibiotic Education, Prescription Opioid Use. Follow up: Private Physician; When: 2 - 3 days; Reason: Re-evaluation by your physician. gs
[2018-06-09] MEDS ORDERED: HYDROCODONE/APAP 5/325 MG TAB ONE (01:42)
[2018-06-09] MEDS ORDERED: POTASSIUM 25 MEQ EFFERV TAB ONE (01:42)
[2018-06-09 03:01] VITALS: TEMP 98.2
[2018-06-09 03:08] VITALS: BP 180/83; O2SAT 97
--- NOTE | 2018-06-09 07:49 | EKG ---
Test Date: 2018-06-08 Test Time: 22:51:54 [employer] Analyst: JD MEASUREMENT RESULTS: Intervals: Rate: 84 OR: 168 QRSD: 82 QT: 330 QTc: 389 [place]: P: 1 OR: 168 QRS: 7 T: 125 INTERPRETIVE STATEMENTS: Normal sinus rhythm ST & T wave abnormality, non specific Abnormal ECG Compared to ECG 06/01/2018 17:43:42 Atrial premature complex(es) no longer present ST (T wave) deviation still present Electronically Signed On 06-09-18 07:48:43 CDT by Jese Stewart
--- NOTE | 2018-06-09 08:16 | RAD REPORT ---
EXAM DESCRIPTION: RAD - Chest Single View - 06/09/2018 12:03 am CLINICAL HISTORY: CHEST PAIN Chest pain. COMPARISON: Chest Single View dated 06/01/2018; Chest Pa And Lat (2 Views) dated 07/23/2017; Chest Sing le View dated 08/09/2016; Chest Single View dated 06/05/2016 FINDINGS: Portable technique limits examination quality. The lungs are grossly clear. The heart is upper limit of normal in size. No displaced fractures. IMPRESSION: No acute intrathoracic process suspected.
== END 2018-06-09 02:01 | disposition home or self-care (01) ==
LOC: ER 22:34
DX: R00.2 Palpitations (principal); I48.91 Unspecified atrial fibrillation; E11.9 Type 2 diabetes mellitus without complications; I10 Essential (primary) hypertension; I25.2 Old myocardial infarction; Z79.82 Long term (current) use of aspirin
CPT/HCPCS: 36415; 71045; 72070; 72100; 80048; 80076; 83735; 83880; 84484; 85025; 85610; 93005; 99284

== ENCOUNTER 2018-08-07 04:23 | Inpatient (IN) | payer OTHER ==
--- OUTSIDE RECORDS SUMMARY | 2018-08-07 04:25 | XMS REPORT | Clinical Summary ---
:1940 [facility] Address [address] [place] [address] Care Team Providers Name Role Phone Unavailable [...] Not on file Implants Implanted Type Area Angiographer Device Shelf Model / Identifier Expiration Serial / Date Lot Device Clsr Angio-Seal Vip 6fr [id number] - [id number] Cardiovascular N/A: Groin ST QUANG 11/16/2016 [id number] / Implanted: Qty: 1 on 03/21/2016 by Miguel Ángel Chaudhry MD MED: CARDIAC / SURG [id number] Synergy Stents-Coronary N/A: [place] 01/15/2017 [id number] / Implanted: Qty: 1 on 03/21/2016 by Miguel Ángel Chaudhry MD Coronary SCIENTIFIC / [id number] Results Not on fileafter 08/06/2017 Insurance Payer Benefit Plan / Group Subscriber ID Type Phone Address [employer] xxxxxxxx Maps Contracted Advance Directives For more information, please contact:[address] [phone] Code Status Date Activated Date Inactivated Comments Full Code 03/21/2016 6:40 PM 03/26/2016 4:41 PM This code status was determined by: Patient
--- OUTSIDE RECORDS SUMMARY | 2018-08-07 04:26 | XMS REPORT | Continuity of Care Document ---
:1940 Author Organization Interface Problems Problem Status Onset Classification Date Comments Source Date Reported M54.12 Active 10/02/19 [place] [address] [place] Diabetes Active Problem 10/16/2015 [facility] Diabetes Resolved Problem 10/16/2015 [facility] Gastric reflux Active Problem 10/16/2015 [facility] HTN - Resolved Problem 10/16/2015 [facility]ension [facility] Hypertension Active Problem 10/16/2015 [facility] RADICULOPATHY, Active [facility] [place] Medications Medication Details Route Status Patient Ordering [...] CT SCAN OF CERVICAL SPINE 10/12 - [facility] cervical /2015 - [place] myelogram myelogram CT CT DATE: 10/13/2015 10:08 [...] arthrosis to the right with probable fusion. Ejuw-wb-fwpcusli right foraminal narrowing. C3-C4: Mdyy-yi-researsg grade 1 degenerative anterolisthesis of C3 on C4 with a 4 -- 5 mm posterior broad-based disc osteophyte complex indenting ventral cord with posterior cord displacement there and mild central canal narrowing. Cord is mildly flattened. Facet arthrosis greater to the left with hypertrophy noted gkli-ty-iejlvgln left and mild right foraminal narrowing. C4-C5: Slight degenerative retrolisthesis of C4 on C5 with a 3 -- 4 mm posterior disc osteophyte complex mildly compressing and flattening cord against prominent ligament flavum with mild to moderate ce ntral canal stenosis and mild cord flattening. Bcwm-ej-ennzsedl bilateral foraminal narrowing secondary to facet and uncovertebral joint degeneration C5-C6: Mild degenerative retrolisthesis of C5 on C6 with a 4 -- 5 mm posterior disc osteophyte complex compressing cord against posterior elements. There is ptjd-lk-vpefhmcl central canal stenosis with cord flattening there [...] Spine Spine EXAM: Cervical MYELOGRAM 10/12 - [facility] /2015 - [place] myelogram myelogram DX DX DATE: 10/13/2015 10:07 [...] with mild narrowing subarachnoid space. C3-C4 shows pjio-rd-tlwqiksm ventral and mild dorsal extradural defects mildly encroaching upon ventral cord with pnwg-hi-cpwxwzoa narrowing subarachnoid space C4-C5 shows moderate ventral [...] Type Number For Provider Date Date Visit [facility]patient [id number] Fernie 09/28 09/29 [facility] [id number] Fernie 10/12 10/13 [facility] Procedures Procedure Code Date Perfomer Comments Source Abdominal [id number] Ortho hysterectomy and Spine Cholecystectomy [id number] [facility] Excision of lesion of [id number] Ortho phalanges of foot and Spine
[2018-08-07] MEDS ORDERED: ONDANSETRON 4 MG/2 ML VIAL ONE ×2 (05:06→06:08)
[2018-08-07 05:35] LABS: Absolute Lymphocytes (CBC) 1.7 K/uL (0.7-4.9); Basophils % 0.8 % (0-1.3); Eosinophils % 1.8 % (0-4.4); Hematocrit 43.3 % (36.0-45.0); Lymphocytes % 17.7 % (15.3-44.8); MPV 9.2 fL (7.6-11.3); Monocytes % 7.1 % (3.3-12.3)
[2018-08-07 05:36] LABS: Protime INR 1.09
[2018-08-07] MEDS ORDERED: PANTOPRAZOLE 40 MG INJ ONE (05:39)
[2018-08-07] MEDS ORDERED: NA CHLORIDE 0.9% 1,000 ML ONE (05:39)
[2018-08-07] MEDS ORDERED: FENTANYL CITR 100 MCG/2 ML ONE ×2 (05:39→05:56)
[2018-08-07 06:00] LABS: Albumin 3.4 g/dL (3.4-5.0); Bilirubin Direct 0.3 mg/dL (0-0.2); Bilirubin Total 0.7 mg/dL (0.2-1.0); Protein, Total 7.3 g/dL (6.4-8.2); Troponin (Emerg Dept Use Only) 0.02 ng/mL (0.0-0.045)
[2018-08-07 06:01] LABS: Potassium 2.7 mmol/L (3.5-5.1)
--- NOTE | 2018-08-07 06:12 | EDPHYS ---
Physician Documentation [facility] Name: uJdy Puri Age: 78 yrs Sex: Female : 1940 Arrival Date: 08/07/2018 Time: 04:25 Bed 13 Private MD: Roscoe Pino E ED Physician Buster Hawkins HPI: 08/07 06:05 This 78 yrs old Female presents to ER via Ambulatory with complaints of raad Abdominal Pain, Nausea. 06:05 The patient presents to the emergency department with nausea, vomiting, abdominal pain, raad of the epigastric area. Onset: The symptoms/episode began/occurred 1 day(s) ago. Possible causes: unknown. The symptoms are aggravated by nothing. Associated signs and symptoms: The patient has no apparent associated signs or symptoms. Severity of symptoms: At their worst the symptoms were mild in the emergency department the symptoms are unchanged. The patient has experienced similar episodes in the past, a few times. Historical: - Allergies: 04:45 Codeine; bb 04:45 Propoxyphene HCl; bb - Home Meds: 05:51 Aspirin Oral [Active]; atorvastatin Oral [Active]; Furosemide Oral [Active]; gabapentin jb4 Oral [Active]; Hydrocodone-Acetaminophen Oral [Active]; Glipizide Oral [Active]; losartan Oral [Active]; Metoprolol Tartrate Oral [Active]; Omeprazole Oral [Active]; - PMHx: 04:45 Atrial Fib; Diabetes - NIDDM; Hypertension; Myocardial infarction; bb - PSHx: 04:45 Cholecystectomy; Hysterectomy; Heart stents; bladder lift x 3; bb - Immunization history:: Adult Immunizations up to date. - Social history:: Smoking status: Patient/guardian denies using tobacco. - Ebola Screening: : No symptoms or risks identified at this time. - Family history:: not pertinent. ROS: 06:05 Constitutional: Negative for fever, chills, and weight loss, Eyes: Negative for injury, raad pain, redness, and discharge, ENT: Negative for injury, pain, and discharge, Neck: Negative for injury, pain, and swelling, Cardiovascular: Negative for chest pain, palpitations, and edema, Respiratory: Negative for shortness of breath, cough, wheezing, and pleuritic chest pain, Back: Negative for injury and pain, : Negative for injury, bleeding, discharge, and swelling, MS/Extremity: Negative for injury and deformity, Skin: Negative for injury, rash, and discoloration, Neuro: Negative for headache, weakness, numbness, tingling, and seizure, Psych: Negative for depression, anxiety, suicide ideation, homicidal ideation, and hallucinations, Allergy/Immunology: Negative for hives, rash, and allergies, Endocrine: Negative for neck swelling, polydipsia, polyuria, polyphagia, and marked weight changes, Hematologic/Lymphatic: Negative for swollen nodes, abnormal bleeding, and unusual bruising. 06:05 Abdomen/GI: Positive for abdominal pain, nausea, vomiting, of the epigastric area, right upper quadrant and left upper quadrant. Exam: 06:05 Constitutional: This is a well developed, well nourished patient who is awake, alert, raad and in no acute distress. Head/Face: Normocephalic, atraumatic. Eyes: Pupils equal round and reactive to light, extra-ocular motions intact. Lids and lashes normal. Conjunctiva and sclera are non-icteric and not injected. Cornea within normal limits. Periorbital areas with no swelling, redness, or edema. ENT: Nares patent. No nasal discharge, no septal abnormalities noted. Tympanic membranes are normal and external auditory canals are clear. Oropharynx with no redness, swelling, or masses, exudates, or evidence of obstruction, uvula midline. Mucous membranes moist. Neck: Trachea midline, no thyromegaly or masses palpated, and no cervical lymphadenopathy. Supple, full range of motion without nuchal rigidity, or vertebral point tenderness. No Meningismus. Chest/axilla: Normal chest wall appearance and motion. Nontender with no deformity. No lesions are appreciated. Cardiovascular: Regular rate and rhythm with a normal S1 and S2. No gallops, murmurs, or rubs. Normal PMI, no JVD. No pulse deficits. Respiratory: Lungs have equal breath sounds bilaterally, clear to auscultation and percussion. No rales, rhonchi or wheezes noted. No increased work of breathing, no retractions or nasal flaring. Back: No spinal tenderness. No costovertebral tenderness. Full range of motion. Skin: Warm, dry with normal turgor. Normal color with no rashes, no lesions, and no evidence of cellulitis. MS/ Extremity: Pulses equal, no cyanosis. Neurovascular intact. Full, normal range of motion. Neuro: Awake and alert, GCS 15, oriented to person, place, time, and situation. Cranial nerves II-XII grossly intact. Motor strength 5/5 in all extremities. Sensory grossly intact. Cerebellar exam normal. Normal gait. Psych: Awake, alert, with orientation to person, place and time. Behavior, mood, and affect are within normal limits. 06:05 Abdomen/GI: Inspection: distension, Bowel sounds: normal, Palpation: mild abdominal tenderness, moderate abdominal tenderness, in the epigastric area, right upper quadrant and left upper quadrant, Liver: no appreciated palpable abnormalities, Hernia: not appreciated. Vital Signs: 04:45 BP 198 / 97; Pulse 98; Resp 18 S; Pulse Ox 96% on R/A; Weight 71.67 kg (R); Height 4 bb ft. 11 in. (149.86 cm) (R); Pain 10/10; 04:48 Temp 98.8(O); jb4 06:00 BP 171 / 59; Pulse 65; Resp 17; Pulse Ox 90% on R/A; jb4 07:00 BP 200 / 99; Pulse 59; Resp 17; Pulse Ox 99% on R/A; tw2 08:26 BP 196 / 92; Pulse 53; Resp 14; Pulse Ox 95% on R/A; tw2 04:45 Body Mass Index 31.91 (71.67 kg, 149.86 cm) bb MDM: 04:43 Patient medically screened. raad 04:58 Patient medically screened. [facility] 06:05 Data reviewed: vital signs, nurses notes, lab test result(s), EKG, radiologic studies, [facility] CT scan, plain films. 08/07 04:57 Order name: Basic Metabolic Panel; Complete Time: 06:02 [facility] 08/07 04:57 Order name: CBC with Diff; Complete Time: 05:55 [facility] 08/07 04:57 Order name: LFT's; Complete Time: 06:02 [facility] 08/07 04:57 Order name: Magnesium; Complete Time: 06:02 [facility] 08/07 04:57 Order name: NT PRO-BNP; Complete Time: 06:02 [facility] 08/07 04:57 Order name: PT-INR; Complete Time: 05:55 [facility] 08/07 04:57 Order name: Troponin (emerg Dept Use Only); Complete Time: 06:02 [facility] 08/07 04:57 Order name: XRAY Chest (1 view) [facility] 08/07 04:57 Order name: Lipase; Complete Time: 06:02 [facility] 08/07 04:57 Order name: CT Abd/Pelvis - PO and IV Contrast [facility] 08/07 08:04 Order name: CT EDMS 08/07 04:57 Order name: EKG; Complete Time: 05:17 [facility] 08/07 04:57 Order name: Cardiac monitoring; Complete Time: 05:16 [facility] 08/07 04:57 Order name: EKG - Nurse/Tech; Complete Time: 05:16 [facility] 08/07 04:57 Order name: IV Saline Lock; Complete Time: 05:16 [facility] 08/07 04:57 Order name: Labs collected and sent; Complete Time: 05:16 [facility] 08/07 04:57 Order name: O2 Per Protocol; Complete Time: 05:16 [facility] 08/07 04:57 Order name: O2 Sat Monitoring; Complete Time: 05:17 [facility] Administered Medications: 05:10 Drug: Zofran 4 mg Route: IVP; Site: left forearm; jb4 05:40 Follow up: Response: No adverse reaction; Nausea is decreased jb4 05:30 Drug: fentaNYL (PF) 25 mcg Route: IVP; Site: left forearm; jb4 05:59 Follow up: Response: No adverse reaction; Pain is decreased jb4 05:31 Drug: NS 0.9% 500 ml Route: IV; Rate: bolus; Site: left forearm; jb4 05:33 Drug: ProTONIX 40 mg Route: IVP; Site: left forearm; jb4 06:00 Follow up: Response: No adverse reaction jb4 05:42 Drug: fentaNYL (PF) 25 mcg Route: IVP; Site: left forearm; jb4 06:00 Follow up: Response: No adverse reaction; Pain is decreased jb4 05:58 Drug: Zofran 4 mg Route: IVP; Site: left forearm; jb4 07:05 Follow up: Response: No adverse reaction tw2 06:15 CANCELLED (Physician Discretion): NS 0.9% 1000 ml IV at 125 ml/hr continuous bb 06:20 Drug: NS 0.9% 1000 ml Route: IV; Rate: 1 bolus; Site: left forearm; jb4 08:27 Follow up: Response: No adverse reaction; IV Status: Completed infusion; IV Intake: tw2 1000ml 06:20 Drug: NS 0.9% with KCl 20 mEq/L 1000 ml Route: IV; Rate: ml/hr; Site: left forearm; jb4 08:28 Follow up: IV Status: Infusion continued upon admission tw2 06:20 Drug: Potassium Chloride 20 mEq Route: IV; Rate: per protocol; Site: left forearm; jb4 08:29 Follow up: IV Status: Infusion continued upon admission tw2 06:35 Drug: Phenergan 12.5 mg Route: IVP; Site: left forearm; jb4 08:28 Follow up: Response: No adverse reaction; Nausea is decreased tw2 06:39 Drug: Dilaudid 0.5 mg Route: IVP; Site: left forearm; jb4 08:28 Follow up: Response: No adverse reaction; Pain is decreased tw2 08:27 Not Given (Duplicate Order): Dilaudid 0.5 mg IVP once tw2 Disposition: 08/07/18 06:11 Hospitalization ordered by Desirae Asencio for Inpatient Admission. Preliminary diagnosis are Abdominal tenderness, Vomiting, Acute pancreatitis, unspecified, Type 2 diabetes mellitus, Hypokalemia. - Bed requested for Telemetry/MedSurg (Inpatient). - Status is Inpatient Admission. tw2 - Condition is Fair. - Problem is new. - Symptoms have improved. UTI on Admission? No Signatures: Dispatcher [employer] EDMS Buster Hawkins MD MD cha Ballard, Brenda RN Monica Saavedra RN RN tw2 Sy Shipley RN RN jb4 Renee Waite Corrections: (The following items were deleted from the chart) 06:15 04:57 NS 0.9% 1000 ml IV at 125 ml/hr continuous ordered. raad munguia 06:15 06:15 NS 0.9% 1000 ml IV at 125 ml/hr continuous ordered. ezra munguia 07:37 06:11 Hospitalization Ordered by Desirae Asencio MD for Inpatient Admission. Preliminary eb diagnosis is Abdominal tenderness; Vomiting; Acute pancreatitis, unspecified; Type 2 diabetes mellitus; Hypokalemia. Bed requested for Telemetry/MedSurg (Inpatient). Status is Inpatient Admission. Condition is Fair. Problem is new. Symptoms have improved. UTI on Admission? No. [facility] 08:37 07:37 08/07/2018 06:11 Hospitalization Ordered by Desirae Asencio MD for Inpatient tw2 Admission. Preliminary diagnosis is Abdominal tenderness; Vomiting; Acute pancreatitis, unspecified; Type 2 diabetes mellitus; Hypokalemia. Bed requested for Telemetry/MedSurg (Inpatient). Status is Inpatient Admission. Condition is Fair. Problem is new. Symptoms have improved. UTI on Admission? No. eb
--- NOTE | 2018-08-07 06:12 | ER ---
Nurse's Notes [facility] Name: Judy Puri Age: 78 yrs Sex: Female : 1940 Arrival Date: 08/07/2018 Time: 04:25 Bed 13 Private MD: Roscoe Pino E Diagnosis: Abdominal tenderness;Vomiting;Acute pancreatitis, unspecified;Type 2 diabetes mellitus;Hypokalemia Presentation: 08/07 04:43 Presenting complaint: Patient states: she is having epigastric pain with nausea since bb last night vomited after she arrived here denies diarrhea or fever the pain is 10/10, does not radiate. Transition of care: patient was not received from another setting of care. Onset of symptoms was August 07, 2018. Risk Assessment: Do you want to hurt yourself or someone else? Patient reports no desire to harm self or others. Initial Sepsis Screen: Does the patient meet any 2 criteria? No. Patient's initial sepsis screen is negative. Does the patient have a suspected source of infection? No. Patient's initial sepsis screen is negative. Care prior to arrival: None. 04:43 Method Of Arrival: Ambulatory bb 04:43 Acuity: JONATHAN 3 bb Historical: - Allergies: 04:45 Codeine; bb 04:45 Propoxyphene HCl; bb - Home Meds: 05:51 Aspirin Oral [Active]; atorvastatin Oral [Active]; Furosemide Oral [Active]; gabapentin jb4 Oral [Active]; Hydrocodone-Acetaminophen Oral [Active]; Glipizide Oral [Active]; losartan Oral [Active]; Metoprolol Tartrate Oral [Active]; Omeprazole Oral [Active]; - PMHx: 04:45 Atrial Fib; Diabetes - NIDDM; Hypertension; Myocardial infarction; bb - PSHx: 04:45 Cholecystectomy; Hysterectomy; Heart stents; bladder lift x 3; bb - Immunization history:: Adult Immunizations up to date. - Social history:: Smoking status: Patient/guardian denies using tobacco. - Ebola Screening: : No symptoms or risks identified at this time. - Family history:: not pertinent. Screenin:54 Abuse screen: Denies threats or abuse. Nutritional screening: No deficits noted. jb4 Tuberculosis screening: No symptoms or risk factors identified. Fall Risk IV access (20 points). Gait- Impaired (20 pts.). Total Chan Fall Scale indicates Low Risk Score (25-44 pts). Fall prevention measures have been instituted. Side Rails Up X 2 Placed close to Nursing Station Frequent Obs/Assesments occuring As available Patient and Family Educated on Fall Prevention Program and strategies. Assessment: 04:48 General: Appears in no apparent distress. uncomfortable, Behavior is calm, cooperative, jb4 appropriate for age. Pain: Complains of pain in epigastric area Pain does not radiate. Pain currently is 10 out of 10 on a pain scale. Quality of pain is described as it just hurts. Pain began last night Is continuous. Neuro: Level of Consciousness is awake, alert, obeys commands, Oriented to person, place, time, situation. Cardiovascular: Heart tones S1 S2 present Patient's skin is warm and dry. Respiratory: Airway is patent Respiratory effort is even, unlabored, Respiratory pattern is regular, symmetrical, Breath sounds are clear bilaterally. GI: Bowel sounds present X 4 quads. Abd is soft X 4 quads Abd is non tender in suprapubic area, right upper quadrant, left upper quadrant, right lower quadrant and left lower quadrant Abdomen is tender to palpation in epigastric area and umbilical area Reports nausea, vomiting. : No signs and/or symptoms were reported regarding the genitourinary system. EENT: No signs and/or symptoms were reported regarding the EENT system. Derm: Skin is intact, Skin is pink, warm \T\ dry. Musculoskeletal: Circulation, motion, and sensation intact. 06:00 Reassessment: Patient appears in no apparent distress at this time. Patient and/or jb4 family updated on plan of care and expected duration. Pain level reassessed. Patient is alert, oriented x 3, equal unlabored respirations, skin warm/dry/pink. PT desat to 90% O2 on RA after fentanyl administration placed on 2L NC. 06:42 Reassessment: PT to CT. jb4 08:27 Reassessment: Patient appears in no apparent distress at this time. Patient and/or tw2 family updated on plan of care and expected duration. Pain level reassessed. Patient is alert, oriented x 3, equal unlabored respirations, skin warm/dry/pink. Vital Signs: 04:45 BP 198 / 97; Pulse 98; Resp 18 S; Pulse Ox 96% on R/A; Weight 71.67 kg (R); Height 4 bb ft. 11 in. (149.86 cm) (R); Pain 10/10; 04:48 Temp 98.8(O); jb4 06:00 BP 171 / 59; Pulse 65; Resp 17; Pulse Ox 90% on R/A; jb4 07:00 BP 200 / 99; Pulse 59; Resp 17; Pulse Ox 99% on R/A; tw2 08:26 BP 196 / 92; Pulse 53; Resp 14; Pulse Ox 95% on R/A; tw2 04:45 Body Mass Index 31.91 (71.67 kg, 149.86 cm) bb ED Course: 04:25 Patient arrived in ED. ds1 04:25 Roscoe Pino MD is Private Physician. ds1 04:44 Triage completed. bb 04:45 Arm band placed on Patient placed in an exam room, on a stretcher, on pulse oximetry. bb EKG completed in triage. Results shown to MD. Family accompanied patient. 04:47 Buster Hawkins MD is Attending Physician. raad 04:48 Sy Shipley RN is Primary Nurse. jb4 04:54 Patient has correct armband on for positive identification. Placed in gown. Bed in low jb4 position. Call light in reach. Side rails up X 1. Pulse ox on. NIBP on. 05:51 X-ray completed. Portable x-ray completed in exam room. Patient tolerated procedure kw well. 05:54 XRAY Chest (1 view) In Process Unspecified. EDMS 06:01 Notified ED physician of a critical lab result(s). potassium of 2.7. Dr Hawkins bb notified. 06:10 Desirae Asencio MD is Hospitalizing Provider. raad 08:18 No provider procedures requiring assistance completed. Patient admitted, IV remains in tw2 place. Administered Medications: 05:10 Drug: Zofran 4 mg Route: IVP; Site: left forearm; jb4 05:40 Follow up: Response: No adverse reaction; Nausea is decreased jb4 05:30 Drug: fentaNYL (PF) 25 mcg Route: IVP; Site: left forearm; jb4 05:59 Follow up: Response: No adverse reaction; Pain is decreased jb4 05:31 Drug: NS 0.9% 500 ml Route: IV; Rate: bolus; Site: left forearm; jb4 05:33 Drug: ProTONIX 40 mg Route: IVP; Site: left forearm; jb4 06:00 Follow up: Response: No adverse reaction jb4 05:42 Drug: fentaNYL (PF) 25 mcg Route: IVP; Site: left forearm; jb4 06:00 Follow up: Response: No adverse reaction; Pain is decreased jb4 05:58 Drug: Zofran 4 mg Route: IVP; Site: left forearm; jb4 07:05 Follow up: Response: No adverse reaction tw2 06:15 CANCELLED (Physician Discretion): NS 0.9% 1000 ml IV at 125 ml/hr continuous bb 06:20 Drug: NS 0.9% 1000 ml Route: IV; Rate: 1 bolus; Site: left forearm; jb4 08:27 Follow up: Response: No adverse reaction; IV Status: Completed infusion; IV Intake: tw2 1000ml 06:20 Drug: NS 0.9% with KCl 20 mEq/L 1000 ml Route: IV; Rate: ml/hr; Site: left forearm; jb4 08:28 Follow up: IV Status: Infusion continued upon admission tw2 06:20 Drug: Potassium Chloride 20 mEq Route: IV; Rate: per protocol; Site: left forearm; jb4 08:29 Follow up: IV Status: Infusion continued upon admission tw2 06:35 Drug: Phenergan 12.5 mg Route: IVP; Site: left forearm; jb4 08:28 Follow up: Response: No adverse reaction; Nausea is decreased tw2 06:39 Drug: Dilaudid 0.5 mg Route: IVP; Site: left forearm; jb4 08:28 Follow up: Response: No adverse reaction; Pain is decreased tw2 08:27 Not Given (Duplicate Order): Dilaudid 0.5 mg IVP once tw2 Intake: 08:27 IV: 1000ml; Total: 1000ml. tw2 Outcome: 06:11 Decision to Hospitalize by Provider. raad 08:18 Admitted to Med/surg accompanied by tech, via stretcher, room 428, with chart, Report tw2 called to NATALI Schrader 08:18 Condition: stable 08:18 Instructed on the need for admit. 08:37 Patient left the ED. tw2 Signatures: Dispatcher [facility] HospitalHost Buster Martinez MD MD cha San[place], Demi ds1 Itzel Hodgson RN RN bb Caroline Solano kw Monica Guzman, RN RN tw2 Sy Shipley, RN RN jb4
[2018-08-07] MEDS ORDERED: NA CHLORIDE 0.9% 500 ML ONE (06:27)
[2018-08-07] MEDS ORDERED: NS KCL 20MEQ 1,000 ML IV ONE (06:27)
[2018-08-07] MEDS ORDERED: KCL 20 MEQ/100 mL IVPB 20 MEQ/100 ML BAG IV ONE (06:28)
[2018-08-07] MEDS ORDERED: PROMETHAZINE 25 MG/ML VIAL ONE (06:38)
[2018-08-07] MEDS ORDERED: HYDROMORPHONE HCL 0.5 MG/0.5 ML INJ ONE (06:38)
--- NOTE | 2018-08-07 06:47 | P.HP ---
Certification for Inpatient Patient admitted to: Inpatient With expected LOS: >2 Midnights Practitioner: I am a practitioner with admitting privileges, knowledge of patient current condition, hospital course, and medical plan of care. Services: Services provided to patient in accordance with Admission requirements found in Title 42 Section 412.3 of the Code of Federal Regulations Patient History Date of Service: 08/07/18 Reason for admission: acute pancreatitis History of Present Illness: Ms Puri is a 78 years old woman with history of DM II, HTN, CAD, who start last night with severe epigastric pain associated with nausea and vomiting. Abdominal pain intensity 10/10, no radiated, constant. The symptoms started after she had dinner. No history of fever or chills. She denied chest pain, SOB or diaphoresis episodes. Lab work remarkable for normal WBC count, lipase elevated. She has history of cholecystectomy. EKG abnormal with ST depression and T wave infersion in lateral leads, similar to previous EKG, initial trop I negative. At my encounter she was in moderate distress due to the pain. Allergies codeine Adverse Reaction (Mild, Verified 05/03/16 12:51) Rash propoxyphene HCl [From Darvon] Adverse Reaction (Verified 05/03/16 12:51) Rash Home medications list reviewed: Yes Home Medications: Omeprazole [Prilosec] 40 mg PO DAILY 10/17/15 glipiZIDE [Glucotrol*] 5 mg PO BID 10/17/15 Metoprolol Tartrate [Lopressor*] 25 mg PO BID #60 tab 02/27/16 Gabapentin 1 tab PO TID 04/25/16 Hydrocodone 7.5/APAP 325 [[place] 7.5/325 mg*] 1 tab PO BID PRN 04/25/16 Lisinopril 1 tab PO DAILY 04/25/16 Prasugrel HCl [Effient] 1 tab PO DAILY 04/25/16 Atorvastatin Calcium [Lipitor] 10 mg PO BEDTIME 05/03/16 Hydrocodone 5/APAP 325 [[place] 5/325*] 1 tab PO Q6H PRN 05/03/16 Sennosides [Senna Laxative] 2 tab PO BID 05/03/16 Tramadol HCl [Ultram] 50 mg PO PRN PRN 05/03/16 - Past Medical/Surgical History Diabetic: Yes -: DM -: Chronic neck pain with chronic headaches -: HTN -: Chronic Cough -: Hysterectomy -: Bladder suspension x3 -: Cholecystectomy - Family History Father -: Heart disease Brother -: Heart disease - Social History Smoking Status: Never smoker Alcohol use: No CD- Drugs: No Caffeine use: Yes Place of Residence: Home Review of Systems 10-point ROS is otherwise unremarkable Physical Examination - Physical Exam General: Alert, In no apparent distress HEENT: Atraumatic, PERRLA, Mucous membr. moist/pink, EOMI, Sclerae nonicteric Neck: Supple, 2+ carotid pulse no bruit, No LAD, Without JVD or thyroid abnormality Respiratory: Clear to auscultation bilaterally, Normal air movement Cardiovascular: Regular rate/rhythm, Normal S1 S2 Gastrointestinal: Normal bowel sounds, Tenderness (epigastric area and LLQ.) Musculoskeletal: No tenderness Integumentary: No rashes Neurological: Normal speech, Normal strength at 5/5 x4 extr, Normal tone, Normal affect Lymphatics: No axilla or inguinal lymphadenopathy - Studies Laboratory Data (last 24 hrs) 08/07/18 05:10: PT 12.8 H, INR 1.09 08/07/18 05:10: WBC 9.7, Hgb 14.7, Hct 43.3, Plt Count 167 08/07/18 05:10: Sodium 141, Potassium 2.7 L*, BUN 11, Creatinine 1.07, Glucose 209 H, Magnesium 2.0, Total Bilirubin 0.7, AST 80 H, ALT 45, Alkaline Phosphatase 117, Lipase 942 H Assessment and Plan - Problems (Diagnosis) (1) Epigastric pain Current Visit: Yes Status: Acute (2) Pancreatitis Current Visit: Yes Status: Acute Qualifiers: Chronicity: acute Pancreatitis type: unspecified pancreatitis type Acute pancreatitis complication: unspecified Qualified Code(s): K85.90 - Acute pancreatitis without necrosis or infection, unspecified (3) Hypertension Current Visit: No Status: Acute Qualifiers: Hypertension type: essential hypertension Qualified Code(s): I10 - Essential (primary) hypertension (4) Hypokalemia Onset Date: 04/26/16 Current Visit: No Status: Acute (5) Coronary artery disease Current Visit: No Status: Chronic Qualifiers: Coronary Disease-Associated Artery/Lesion type: [place] artery [place] vs. transplanted heart: [place] heart Associated angina: without angina Qualified Code(s): I25.10 - Atherosclerotic heart disease of [place] coronary artery without angina pectoris (6) Diabetes mellitus Current Visit: No Status: Chronic Qualifiers: Diabetes mellitus type: type 2 Diabetes mellitus long-term insulin use: with long-term use Diabetes mellitus complication status: without complication Qualified Code(s): E11.9 - Type 2 diabetes mellitus without complications; Z79.4 - snf (current) use of insulin - Plan The patient will be admitted to the hospital due to abdominal pain, nausea and vomiting. She has elevated lipase, clinical presentation consistent with pancreatitis. However, differential diagnosis include acute gastroenteritis, colitis, ACS. CT abd/pelvis is still pending. Continue IV fluids, pain and antiemetic medications. - Advance Directives Does patient have a Living Will: Yes Does patient have a Durable POA for Healthcare: Yes - Code Status/Comfort Care Code Status Assessed: Yes Code Status: Full Code
--- NOTE | 2018-08-07 07:49 | RAD REPORT ---
EXAM DESCRIPTION: RAD - Chest Single View - 08/07/2018 5:53 am CLINICAL HISTORY: Chest pain;Abdominal distention Chest pain. COMPARISON: <Comparisons> FINDINGS: Portable technique limits examination quality. The lungs are grossly clear. The heart is mildly enlarged in size. No displaced fractures. IMPRESSION: No acute intrathoracic process suspected.
--- NOTE | 2018-08-07 07:59 | RAD REPORT ---
EXAM DESCRIPTION: CTAbdomen Pelvis W Contrast - 08/07/2018 6:59 am CLINICAL HISTORY: Abdominal pain. ABD PAIN COMPARISON: Abdomen Pelvis W Contrast dated 04/02/2016; CT ABD PELVIS W CONTRAST dated 03/24/2007 TECHNIQUE: Biphasic CT imaging of the abdomen and pelvis was performed with 100 ml non-ionic IV cont rast. All CT scans are performed using dose optimization technique as appropriate and may include automated exposure control or mA/KV adjustment according to patient size. FINDINGS: Mild linear atelectasis is present in both lung bases. Mild fatty liver is seen. The gallbladder is absent. Moderate intrahepatic and common bile duct dilat ation is present. Fatty changes involve the pancreas. The spleen, adrenal glands and left kidney show no acute or worrisome process. A large stone is present in the right renal pelvis measuring 15 x 11 mm (760 HU). Mild hydronephrosis is present on the right. No bowel obstruction, free air, free fluid or abscess. Calcified anterior hernia mesh structure is pr esent, unchanged. Prominent colonic diverticulosis without diverticulitis. The appendix is not identi fied as a discrete structure, however, no secondary findings of appendicitis are identified. No dwayne dence of significant lymphadenopathy. No suspicious bony findings. IMPRESSION: 15 x 11 mm stone is present in the right renal pelvis with mild right hydronephrosis. Moderate biliary dilatation is seen status post cholecystectomy. If the patient has clinical signs sy mptoms of possible biliary obstruction, MRCP may be helpful. Fatty liver.
[2018-08-07] MEDS ORDERED: MORPHINE 2 MG/ML SYR IV PRN (09:07)
[2018-08-07] MEDS ORDERED: ACETAMINOPHEN 500 MG TAB PO PRN (09:07)
[2018-08-07] MEDS: NA CHLORIDE 0.9% 1,000 ML IV SCH ×2 (09:07→18:14)
[2018-08-07] MEDS ORDERED: ENOXAPARIN 40 MG/0.4 ML SQ SCH (09:07)
--- NOTE | 2018-08-07 10:49 | EKG ---
Test Date: 2018-08-07 Test Time: 04:40:49 Ballroom Dance Instructor: CHRISTIANO MEASUREMENT RESULTS: Intervals: Rate: 78 [place]: 172 QRSD: 86 QT: 360 QTc: 410 [place]: P: -19 [place]: 172 QRS: 4 T: 175 INTERPRETIVE STATEMENTS: Normal sinus rhythm Marked ST abnormality, possible lateral subendocardial injury Abnormal ECG Compared to ECG 06/08/2018 22:51:54 No significant changes Electronically Signed On 08-07-18 10:48:18 CDT by Jese Stewart
--- NOTE | 2018-08-07 11:26 | RAD REPORT ---
EXAM DESCRIPTION: MRI - Cholangiogram - 08/07/2018 11:16 am CLINICAL HISTORY: Abdominal pain, nausea and vomiting, prior cholecystectomy TECHNIQUE: Axial and coronal heavily T2 weighted sequences were obtained. Coronal T2 HASTE fat satur ation static and coronal multiplane reconstruction imaging generated and reviewed. Horizontal and lissette tical axis rotational views obtained using maximum intensity projection (MIP) protocol. FINDINGS: Gallbladder is absent. Remnant cystic duct is dilated to approximately 6 mm. Extrahepatic biliary tree is dilated to 15 mm. This is larger than typically seen for a post cholecystectomy patie nt. Central right liver lobe biliary radicles are mildly dilated. A prominent dilatation pattern exte nds into the left liver lobe biliary tree. A small 5 mm filling defect is evident in the distal commo n bile duct Pancreatic duct is prominent. No pancreatic duct filling defect. On source imaging no suspicious liver, spleen, pancreas or renal abnormality. No adrenal mass. No asc ites. IMPRESSION: A small 5 mm filling defect is present in the distal common bile duct suspicious for cho ledocholithiasis. Intrahepatic and extrahepatic biliary tree dilatation. The 15 millimeter common bile duct diameter is greater than typically seen even in a post cholecystectomy patient.
[2018-08-07] MEDS: INSULIN -REGULAR HUMAN 50 UNIT/0.5 ML ML SQ SCH ×2 (12:00→18:00)
[2018-08-07 12:33] VITALS: BMI 31.8
[2018-08-07] MEDS: ONDANSETRON 4 MG/2 ML VIAL IV PRN ×2 (12:43→18:14)
--- NOTE | 2018-08-07 15:08 | EKG ---
Test Date: 2018-08-07 Test Time: 11:55:10 Patroller: YUNIOR MEASUREMENT RESULTS: Intervals: Rate: 51 ND: 152 QRSD: 88 QT: 434 QTc: 400 [place]: P: 54 ND: 152 QRS: 24 T: 199 INTERPRETIVE STATEMENTS: Sinus bradycardia nst Abnormal ECG Compared to ECG 08/07/2018 04:40:49 Sinus rhythm no longer present ST (T wave) deviation still present Electronically Signed On 08-07-18 15:08:31 CDT by Christoph Houser
[2018-08-07] MEDS: HYDROMORPHONE HCL 0.5 MG/0.5 ML INJ IV PRN ×2 (15:44→20:24)
--- NOTE | 2018-08-07 17:11 | P.DS ---
Admission Date: 08/07/18 Discharge Date: 08/07/18 Disposition: TRANSFER TO [facility] Discharge Condition: GOOD Reason for Admission: acute pancreatitis Consultations: Dr. Ortiz, urology Procedures: MRCP - Problems (1) Choledocholithiasis Current Visit: Yes Status: Acute (2) Hydronephrosis Current Visit: Yes Status: Acute Qualifiers: Hydronephrosis type: with renal calculous obstruction Qualified Code(s): N13.2 - Hydronephrosis with renal and ureteral calculous obstruction (3) Pancreatitis Current Visit: Yes Status: Acute Qualifiers: Chronicity: acute Pancreatitis type: unspecified pancreatitis type Acute pancreatitis complication: unspecified Qualified Code(s): K85.90 - Acute pancreatitis without necrosis or infection, unspecified (4) Hypokalemia Onset Date: 04/26/16 Current Visit: No Status: Acute (5) Hypertension Current Visit: No Status: Acute Qualifiers: Hypertension type: essential hypertension Qualified Code(s): I10 - Essential (primary) hypertension (6) Diabetes mellitus Current Visit: No Status: Chronic Qualifiers: Diabetes mellitus type: type 2 Diabetes mellitus mailroom associate insulin use: with mailroom associate use Diabetes mellitus complication status: without complication Qualified Code(s): E11.9 - Type 2 diabetes mellitus without complications; 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 Abdominal pain intensity 10/10, no radiated, constant. The symptoms started after she had dinner. No history of fever or chills. She denied chest pain, SOB or diaphoresis episodes. Lab work remarkable for normal WBC count, lipase elevated. She has history of cholecystectomy. EKG abnormal with ST depression and T wave infersion in lateral leads, similar to previous EKG, initial trop I negative. At my encounter she was in moderate distress due to the pain. Hospital Course: The patient was admitted to the hospital for abdominal pain, nausea and vomiting. The lipase was elevated, clinical presentation consistent with pancreatitis. CT abdomen was positive for common bile dilatation along with hydronephrosis. Slightly elevated AST and direct bilirubin. MRCP was done and urology was consulted for the hydronephrosis. The MRCP and unfortunately was positive for a small 5 mm filling defect consistent with choledocholithiasis. It also showed intrahepatic and extrahepatic biliary tree dilatation. There was a 15 mm common bile duct diameter. Unfortunately, as we do not have GI on- call here today patient was transferred to [facility] for potential ERCP and GI evaluation. She was requiring lots of IV pain medication to help control her pain. She was also a requiring Zofran for nausea and vomiting. Patient otherwise remained stable throughout the stay. She remained afebrile throughout the stay. Vital Signs/Physical Exam: Temp Pulse Resp BP Pulse Ox 97.9 F 57 14 175/93 H 94 08/07/18 16:00 08/07/18 16:00 08/07/18 16:00 08/07/18 16:00 08/07/18 16:00 General: Alert, Oriented x3, Moderate distress, Severe distress HEENT: Atraumatic, PERRLA, EOMI Neck: Supple, JVD not distended Respiratory: Clear to auscultation bilaterally, Normal air movement Cardiovascular: Normal S1 S2, Irregular heart rate/rhythm (Tachycardic) Gastrointestinal: Normal bowel sounds, Tenderness, Rebound, Guarding Musculoskeletal: No tenderness Integumentary: No rashes Neurological: Normal speech, Normal tone, Normal affect Lymphatics: No axilla or inguinal lymphadenopathy Laboratory Data at Discharge: WBC 9.7 K/uL (4.3-10.9) 08/07/18 05:10 Hgb 14.7 g/dL (12.0-15.0) 08/07/18 05:10 Hct 43.3 % (36.0-45.0) 08/07/18 05:10 Plt Count 167 K/uL (152-406) 08/07/18 05:10 PT 12.8 SECONDS (9.5-12.5) H 08/07/18 05:10 INR 1.09 08/07/18 05:10 Sodium 141 mmol/L (136-145) 08/07/18 05:10 Potassium 2.7 mmol/L (3.5-5.1) L* 08/07/18 05:10 BUN 11 mg/dL (7-18) 08/07/18 05:10 Creatinine 1.07 mg/dL (0.55-1.3) 08/07/18 05:10 Glucose 209 mg/dL (74-106) H 08/07/18 05:10 Magnesium 2.0 mg/dL (1.8-2.4) 08/07/18 05:10 Total Bilirubin 0.7 mg/dL (0.2-1.0) 08/07/18 05:10 AST 80 U/L (15-37) H 08/07/18 05:10 ALT 45 U/L (12-78) 08/07/18 05:10 Alkaline Phosphatase 117 U/L (45-117) 08/07/18 05:10 Troponin I 0.02 ng/mL (0.0-0.045) 08/07/18 13:00 Triglycerides 254 mg/dL (<150) H 08/07/18 05:10 Cholesterol 154 mg/dL (<200) 08/07/18 05:10 HDL Cholesterol 40 mg/dL (40-60) 08/07/18 05:10 Cholesterol/HDL Ratio 3.85 08/07/18 05:10 Lipase 942 U/L (73-393) H 08/07/18 05:10 Home Medications: RX: Omeprazole [Prilosec] 40 mg PO BID 10/17/15 RX: glipiZIDE [Glucotrol*] 5 mg PO BID 10/17/15 RX: Gabapentin 1 tab PO TID 04/25/16 RX: Hydrocodone 7.5/APAP 325 [[place] 7.5/325 mg*] 1 tab PO Q6H PRN 04/25/16 Atorvastatin Calcium [Lipitor] 40 mg PO BEDTIME 05/03/16 Sennosides [Senna Laxative] 2 tab PO BID 05/03/16 Aspirin [Adult Aspirin Regimen] 81 mg PO DAILY 08/07/18 L.acidoph,Paracasei, B.lactis [Probiotic] 1 each PO PRN 08/07/18 RX: Furosemide 20 mg PO DAILY 08/07/18 RX: Losartan Potassium 100 mg PO DAILY 08/07/18 RX: Metoprolol Tartrate [Lopressor*] 50 mg PO BID 08/07/18 Diet: NPO Time spent managing pt's care (in minutes): 45
[2018-08-07] MEDS: PROMETHAZINE 25 MG/ML VIAL IV PRN (21:25)
[2018-08-08] MEDS: HYDROMORPHONE HCL 0.5 MG/0.5 ML INJ IV PRN ×6 (00:23→20:15)
[2018-08-08] MEDS: ONDANSETRON 4 MG/2 ML VIAL IV PRN ×4 (00:24→20:15)
[2018-08-08] MEDS: KCL 20 MEQ/100 mL IVPB 20 MEQ/100 ML BAG IV SCH ×2 (00:26→03:41)
[2018-08-08] MEDS: NA CHLORIDE 0.9% 1,000 ML IV SCH ×3 (03:40→17:30)
[2018-08-08] MEDS: PROMETHAZINE 25 MG/ML VIAL IV PRN ×2 (04:24→13:29)
[2018-08-08] MEDS: INSULIN -REGULAR HUMAN 50 UNIT/0.5 ML ML SQ SCH ×4 (05:33→18:00)
[2018-08-08 06:25] LABS: Albumin 3.2 g/dL (3.4-5.0); Bilirubin Total 0.5 mg/dL (0.2-1.0); Potassium 3.7 mmol/L (3.5-5.1); Protein, Total 6.7 g/dL (6.4-8.2)
[2018-08-08 06:40] LABS: Absolute Lymphocytes (CBC) 1.5 K/uL (0.7-4.9); Basophils % 0.8 % (0-1.3); Eosinophils % 0.4 % (0-4.4); Hematocrit 38.9 % (36.0-45.0); Lymphocytes % 12.9 % (15.3-44.8); MPV 9.9 fL (7.6-11.3); Monocytes % 7.8 % (3.3-12.3); RBC Red Blood Cell Count 4.18 M/uL (3.86-4.86)
--- NOTE | 2018-08-08 11:39 | P.PN ---
Subjective Date of Service: 08/08/18 Chief Complaint: acute pancreatitis Subjective: No new changes Patient seen and examined at bedside. No family at bedside. Chart reviewed and case discussed with nursing staff. Patient in considerable amount of pain, still requiring IV pain medications. Review of Systems 10-point ROS is otherwise unremarkable Physical Examination - Vital Signs Temperature: 98.4 F Blood Pressure: 178/82 Pulse: 70 Respirations: 20 Pulse Ox (%): 87 - Physical Exam General: Alert, Oriented x3, Moderate distress Respiratory: Clear to auscultation bilaterally, Normal air movement Cardiovascular: Regular rate/rhythm, Normal S1 S2 Gastrointestinal: Normal bowel sounds, Tenderness, Guarding Musculoskeletal: No tenderness Integumentary: No rashes Assessment And Plan - Current Problems (Diagnosis) (1) Choledocholithiasis Current Visit: Yes Status: Acute Plan: CT abdomen was positive for common bile dilatation along with hydronephrosis. - The MRCP and unfortunately was positive for a small 5 mm filling defect consistent with choledocholithiasis. It also showed intrahepatic and extrahepatic biliary tree dilatation. There was a 15 mm common bile duct diameter. - initial plan was to transfer patient to [facility] as no GI available yesterday. Unfortunately, no beds available over there and therefore patient was unable to be transferred. Dr. law was consulted, pending ERCP today. - continue pain control and anti emetics as needed - continue to keep NPO (2) Hydronephrosis Current Visit: Yes Status: Acute Plan: Noted on the CT scan. - urology consulted. I will touch base with Dr. Ortiz after ERCP today. Qualifiers: Hydronephrosis type: with renal calculous obstruction Qualified Code(s): N13.2 - Hydronephrosis with renal and ureteral calculous obstruction (3) Pancreatitis Current Visit: Yes Status: Acute Plan: Continue to keep NPO, pain control and anti emetics as needed. Pending ERCP today Qualifiers: Chronicity: acute Pancreatitis type: unspecified pancreatitis type Acute pancreatitis complication: unspecified Qualified Code(s): K85.90 - Acute pancreatitis without necrosis or infection, unspecified (4) Hypokalemia Onset Date: 04/26/16 Current Visit: No Status: Resolved (5) Hypertension Current Visit: No Status: Chronic Plan: Continue to monitor blood pressures IV blood pressure medications as needed. 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
[2018-08-08] MEDS: HYDRALAZINE HCL 20 MG/ML VIAL IV PRN (12:16)
[2018-08-08] MEDS ORDERED: NA CHLORIDE 0.9% 1,000 ML ONE (13:30)
[2018-08-08] MEDS: METOPROLOL TAR 25 MG TAB PO SCH ×2 (13:43→21:02)
[2018-08-08] MEDS: GABAPENTIN 100 MG CAP PO SCH ×2 (14:00→21:02)
[2018-08-08] MEDS ORDERED: KCL 20 MEQ/100 mL IVPB 20 MEQ/100 ML BAG IV SCH (16:00)
--- NOTE | 2018-08-08 16:10 | PN ---
Ms. Puri was to be transferred to [place] for an ERCP, but they did not have a bed. Dr. Hankins attempted ERCP today, but before starting the patient was in atrial fibrillation with a rate of 140, so her case was canceled. She may possibly be transferred on Friday, 2 days from now. If not, we can do a KUB, check her left stone, and possibly ESWL on Friday if she is here. Her anticoagulation will need to be stopped prior to the ESWL of her 15 x 11 mm left renal stone. NATE/GUME Voice ID: [id number] Report ID: [id number] LAKESHIA
[2018-08-08] MEDS: PANTOPRAZOLE 40MG TABLET PO SCH (17:30)
[2018-08-08] MEDS ORDERED: POTASSIUM 25 MEQ EFFERV TAB PO ONE (18:00)
--- NOTE | 2018-08-08 18:24 | CON ---
Date of Consultation: 08/08/2018 Reason For Consultation: Gallstone pancreatitis, choledocholithiasis. History Of Present Illness: The patient is a 78-year-old white female with history of diabetes, hype rtension, coronary artery disease, chronic headaches, neck pain, chronic cough, hysterectomy, bladder suspension, cholecystectomy. The patient presented to the hospital with abdominal pain, found to adair ve gallstone pancreatitis. MRCP was positive for 5 mm filling defect possibly in the distal common b ile duct. Past Medical History: Significant for diabetes, hypertension, coronary artery disease, chronic heada ches, neck pain, chronic cough, hysterectomy, bladder suspension x3, and cholecystectomy. Medications: As per list. Home medications include Prilosec, glipizide, metoprolol, gabapentin, Nor co, lisinopril, Effient, Lipitor, Larue, Senokot, laxatives, Ultram. Allergies: TO CODEINE AND DARVON. Social History: , 1 son. No tobacco. No alcohol. Family History: Father of coronary artery disease, myocardial infarction. Mother of myoca rdial infarction. Brother with coronary artery disease as well. Physical Examination: Vital Signs: The patient is 4 feet 11 inches, 158 pounds. BMI of 32 kg/m2. Temperature 98.5 degree s Fahrenheit, pulse 71, respirations 18, blood pressure 174/86, O2 saturation 88%. General: Obese female, sitting in a chair, in mild distress, somewhat delirious, whining out loud. Somewhat short of breath at rest. HEENT: Normocephalic and atraumatic. Anicteric. Pupils equal, round, and reactive to light. Oroph arynx clear. Neck: Supple. Respirations: Clear to auscultation bilaterally. Cardiac: Regular rate and rhythm. No gallops. Abdomen: Positive bowel sounds. Soft, nondistended. Mild pain in the midepigastric area and genera lized as patient states obese. No peritoneal sign. Some guarding is present but no rebound. Extremities: No clubbing or cyanosis. Some lower extremity edema noted. Neuro: Alert and oriented x3. Grossly nonfocal except somewhat slow and weak 4+/5. Muscle strength in the lower extremities appears. Laboratory Data: The patient has a white count of 11.7 up from 9.7 yesterday, hemoglobin 13.2, hemat ocrit 39, MCV of 93, platelet count of 167, polys of 78%, lymphocytes 13%, monocytes 8%. The patient has a PT of 12.8, INR of 1.1. Sodium 146, potassium 3.7, chloride 112, bicarb 27, BUN of 8, creatin ine of 0.9, glucose 160, calcium 9.6, total bilirubin 0.5, AST of 37 and ALT of 38, alkaline phosphat ase 94, total protein 6.7, albumin 3.2. The patient has a triglyceride 254, cholesterol 154, LDL 63, HDL 40. Lipase on admission was 942, now down to normal level 93. Also on admission, patient had a n AST elevated at 80 now down to 38, ALT was normal on admission at 45 and has decreased further to 3 8. Alkaline phosphatase on admission was 117, has decreased to 94 overnight. Imaging: The patient has a CT abdomen and pelvis reveals moderate biliary dilatation seen, status po st cholecystectomy, partial fatty liver and has a 1.5 x 1.1 mm stone in the right renal pelvis with m ild right hydronephrosis. Creatinine is 0.9. Also MRCP showed a 5 mm defect in the distal common bi le duct. Impression: 1.Gallstone pancreatitis with elevated lipase 942 down to 93 overnight, AST elevated 80 down to 37 o vernight. Total bilirubin normal at 0.7 and 0.5. She is status post laparoscopic cholecystectomy. MRCP shows stone in the distal common bile duct, probably patient has other stone, probably called a gallstone pancreatitis in this patient. She is status post laparoscopic cholecystectomy in the past. 2.Choledocholithiasis. MRCP reveals 5 mm stone in the distal common bile duct. 3.Sepsis. White count 9.7 with 11.7 with polys of 78% overnight. The patient should be on IV antib iotics and proceed with ERCP. 4.Fatty liver. The patient to exercise and decrease weight. She has a BMI of 30. Need to avoid hi gh fructose foods and beverages and alcohol. Exercise and lose weight and follow up as outpatient wo rkup. 5.History of diabetes, hypertension, coronary artery disease, chronic headaches, neck pain, chronic cough, hysterectomy, bladder resuspension x3, and laparoscopic cholecystectomy. Recommendations: 1.N.p.o. 2.IV fluids. 3.ERCP. 4.Outpatient fatty liver workup. 5.Continue p.r.n. pain medicines antiemetics. Addendum: ERCP was canceled by anesthesia due to heart rate in the 150s to 180s with O2 saturation o f 88% as stated above. The patient will need control of this, it is unclear whether the atrial fibri llation is new or old. If it is new, patient will need further cardiac workup for possible myocardia l infarction as acute. knowing today and was not present yesterday. ELOINA/GUME Voice ID: [id number] Report ID: [id number]
[2018-08-08] MEDS: ATORVASTATIN 40 MG TAB PO SCH (21:02)
[2018-08-08] MEDS: SENOSIDES 8.6 MG TAB PO SCH (21:02)
[2018-08-09] MEDS: HYDRALAZINE HCL 20 MG/ML VIAL IV PRN ×2 (00:09→11:56)
[2018-08-09] MEDS: HYDROMORPHONE HCL 0.5 MG/0.5 ML INJ IV PRN ×5 (00:10→21:30)
[2018-08-09] MEDS: NA CHLORIDE 0.9% 1,000 ML IV SCH ×5 (02:54→21:10)
[2018-08-09] MEDS: ONDANSETRON 4 MG/2 ML VIAL IV PRN (04:56)
[2018-08-09] MEDS: INSULIN -REGULAR HUMAN 50 UNIT/0.5 ML ML SQ SCH ×4 (05:53→18:00)
[2018-08-09 06:50] LABS: Potassium 3.6 mmol/L (3.5-5.1)
[2018-08-09] MEDS ORDERED: KCL 20 MEQ/100 mL IVPB 20 MEQ/100 ML BAG IV SCH (09:00)
[2018-08-09] MEDS ORDERED: ASPIRIN EC 81 MG TAB PO SCH (09:00)
[2018-08-09] MEDS: GABAPENTIN 100 MG CAP PO SCH ×3 (09:20→21:11)
[2018-08-09] MEDS: METOPROLOL TAR 25 MG TAB PO SCH ×2 (09:20→21:12)
[2018-08-09] MEDS: LOSARTAN POTASSIUM 50 MG TABLET PO SCH (09:20)
[2018-08-09] MEDS: SENOSIDES 8.6 MG TAB PO SCH ×2 (09:21→21:11)
[2018-08-09] MEDS: FUROSEMIDE 20 MG TABLET PO SCH (09:21)
[2018-08-09] MEDS: PANTOPRAZOLE 40MG TABLET PO SCH ×2 (09:21→15:16)
--- NOTE | 2018-08-09 10:32 | P.PN ---
Subjective Date of Service: 08/09/18 Chief Complaint: acute pancreatitis Patient seen and examined at bedside. No family at bedside. Chart reviewed and case discussed with nursing staff. Patient in considerable amount of pain, still requiring IV pain medications. Review of Systems 10-point ROS is otherwise unremarkable Physical Examination - Vital Signs Temperature: 99.1 F Blood Pressure: 185/66 Pulse: 77 Respirations: 18 Pulse Ox (%): 97 - Physical Exam General: Alert, In no apparent distress, Oriented x3 HEENT: Atraumatic, PERRLA, EOMI Neck: Supple, JVD not distended Respiratory: Clear to auscultation bilaterally, Normal air movement Cardiovascular: Regular rate/rhythm, Normal S1 S2 Gastrointestinal: Normal bowel sounds, Tenderness Musculoskeletal: No tenderness Integumentary: No rashes Neurological: Normal speech, Normal tone, Normal affect Lymphatics: No axilla or inguinal lymphadenopathy Assessment And Plan - Current Problems (Diagnosis) (1) Choledocholithiasis Current Visit: Yes Status: Acute Plan: CT abdomen was positive for common bile dilatation along with hydronephrosis. - The MRCP and unfortunately was positive for a small 5 mm filling defect consistent with choledocholithiasis. It also showed intrahepatic and extrahepatic biliary tree dilatation. There was a 15 mm common bile duct diameter. - [facility] Unfortunately, no beds available over there and therefore patient was unable to be transferred. Dr. law was consulted, pending ERCP today. - continue pain control and anti emetics as needed - continue to keep NPO (2) Hydronephrosis Current Visit: Yes Status: Acute Plan: Noted on the CT scan. - urology consulted. I will touch base with Dr. Ortiz after ERCP today. Qualifiers: Hydronephrosis type: with renal calculous obstruction Qualified Code(s): N13.2 - Hydronephrosis with renal and ureteral calculous obstruction (3) Pancreatitis Current Visit: Yes Status: Acute Plan: Continue to keep NPO, pain control and anti emetics as needed. Pending ERCP today Qualifiers: Chronicity: acute Pancreatitis type: unspecified pancreatitis type Acute pancreatitis complication: unspecified Qualified Code(s): K85.90 - Acute pancreatitis without necrosis or infection, unspecified (4) Hypokalemia Onset Date: 04/26/16 Current Visit: No Status: Resolved (5) Hypertension Current Visit: No Status: Chronic Plan: Continue to monitor blood pressures IV blood pressure medications as needed. Qualifiers: Hypertension type: essential hypertension Qualified Code(s): I10 - Essential (primary) hypertension (6) Diabetes mellitus Current Visit: No Status: Chronic Plan: Accu-Cheks and sliding scale insulin Qualifiers: Diabetes mellitus type: type 2 Diabetes mellitus terminal worker insulin use: with terminal worker use Diabetes mellitus complication status: without complication Qualified Code(s): E11.9 - Type 2 diabetes mellitus without complications; Z79.4 - terminal worker (current) use of insulin - Plan DVT prophylaxis: Hold GI prophylaxis: None Diet: NPO Disposition: Unable to do ERCP here, per GI. Continue to wait to transfer patient..
--- NOTE | 2018-08-09 13:25 | PN ---
Ms. Puri was diagnosed with a common duct stone to be addressed either by Dr. Hankins or by transfer. She does have that left kidney stone that could be shocked on Friday. She is still here and to go ahead, and hold her aspirin, and put her on Lovenox instead. NATE/GUME Voice ID: [id number] Report ID: [id number] MTDRoxanna
--- NOTE | 2018-08-09 18:07 | RAD REPORT ---
EXAM DESCRIPTION: RAD - Chest Single View - 08/09/2018 5:57 pm CLINICAL HISTORY: PICC line placement COMPARISON: None. FINDINGS: Portable chest was obtained following placement of a right upper extremity PICC line. The catheter tip is in the mid SVC.
[2018-08-09] MEDS: ATORVASTATIN 40 MG TAB PO SCH (21:11)
[2018-08-10] MEDS: HYDRALAZINE HCL 20 MG/ML VIAL IV PRN ×2 (00:15→06:08)
[2018-08-10] MEDS: NA CHLORIDE 0.9% 1,000 ML IV SCH ×3 (01:07→09:07)
[2018-08-10] MEDS: HYDROMORPHONE HCL 0.5 MG/0.5 ML INJ IV PRN ×2 (03:08→08:09)
[2018-08-10] MEDS ORDERED: HYDROCODONE/APAP 10/325 TAB PO ONE (05:04)
[2018-08-10 05:30] LABS: Potassium 3.2 mmol/L (3.5-5.1)
[2018-08-10] MEDS ORDERED: POTASSIUM CL SA 10 MEQ TAB PO ONE (05:44)
[2018-08-10] MEDS: INSULIN -REGULAR HUMAN 50 UNIT/0.5 ML ML SQ SCH ×3 (06:00→12:00)
[2018-08-10] MEDS: PANTOPRAZOLE 40MG TABLET PO SCH (07:30)
--- NOTE | 2018-08-10 07:57 | EKG ---
Test Date: 2018-08-08 Test Time: 13:23:53 Rotary Soil Stabilizer: HBS MEASUREMENT RESULTS: Intervals: Rate: 127 MD: QRSD: 80 QT: 306 QTc: 444 [place]: P: MD: QRS: 30 T: 219 INTERPRETIVE STATEMENTS: Atrial fibrillation with rapid ventricular response with premature ventricular or aberrantly conducted complexes Marked ST abnormality, possible inferior subendocardial injury Marked ST abnormality, possible anterolateral subendocardial injury Abnormal ECG Compared to ECG 08/07/2018 11:55:10 Ventricular premature complex(es) now present ST (T wave) deviation now present Sinus bradycardia no longer present Electronically Signed On 08-10-18 07:54:52 CDT by Jese Stewart
[2018-08-10 08:39] VITALS: BP 184/78; TEMP 98.9
--- NOTE | 2018-08-10 08:57 | CON ---
History Of Present Illness: She is a pleasant 78-year-old lady with a history of diabetes type 2, hypertension, coronary artery disease, status post stents some 3 years ago, who has some nausea and vomiting that worsened after eating, some abdominal pain, it was 10/10, nonradiating. There is no history of fevers or chills. Denies chest pain, shortness of breath, or diaphoresis. She had a CT scan showing that gallbladder is absent, but there was moderate intrahepatic and common bile duct dilation present. She also had a 15 x 11 mm stone in the right renal pelvis with very minimal hydronephrosis. Hounsfield unit was 760. She has been worked up for common duct obstruction currently. MRCP pending. She normally takes asa but will switch to Lovenox as inpatient. Allergies: SHE IS ALLERGIC TO CODEINE, AND PROPOXYPHENE. Home Medications: Include Prilosec, Glucotrol, Lopressor, gabapentin, hydrocodone, lisinopril, _, Prasugrel, _, atorvastatin, Lipitor, hydrocodone again 5 mg previous was 7.5, laxative __. Past Medical History: Diabetes, chronic neck pain and chronic headaches, hypertension, chronic cough, hysterectomy, bladder suspension x3, cholecystectomy. Family History: Heart disease, _. Social History: Smoking status, never smoked. No alcohol. No drugs. No caffeine use. Resides at home. Review of Systems: Ten-point review of systems otherwise unremarkable. Physical Examination: General: Alert, oriented, in no acute distress. HEENT: Atraumatic. Normocephalic. Neck: Supple. Cardiovascular: S1, S2 normal. Gastrointestinal: Soft. Some tenderness in epigastric area. Skin: No rashes. Neurologic: Normal speech. Normal range of motion lymphatics: No lymphadenopathy. Laboratory Data: Current reviewed. PT/INR normal. White count 9.7, H and H 14.7 and 43, platelet count [id number]. Electrolytes; sodium 141, potassium 2.70, creatinine 1.0, glucose 209, magnesium 2.0, total bili 0.7, AST 88, ALT 45. UA still pending. Assessment: As mentioned large stone, right renal pelvis. Dilation of common bile duct with GI symptoms. Plan: Plan is to work the patient up for common bile duct stone and then we can do a possible lithotripsy under kidney stone on Friday if she is still here. I will hold the blood thinners, use of Lovenox, hold Lovenox 24 hours before the surgery on Friday. We will continue to follow the patient with you. Other assessments include epigastric pain, pancreatitis, hypertension, hyperkalemia, coronary artery disease and diabetes mellitus. NATE/GUME Voice ID: [id number] Report ID: [id number] LAKESHIA
[2018-08-10] MEDS: LOSARTAN POTASSIUM 50 MG TABLET PO SCH (08:58)
[2018-08-10] MEDS: FUROSEMIDE 20 MG TABLET PO SCH (08:58)
[2018-08-10] MEDS: METOPROLOL TAR 25 MG TAB PO SCH (08:58)
[2018-08-10] MEDS: GABAPENTIN 100 MG CAP PO SCH (08:59)
[2018-08-10] MEDS ORDERED: ENOXAPARIN 40 MG/0.4 ML SQ SCH (09:00)
[2018-08-10] MEDS: SENOSIDES 8.6 MG TAB PO SCH (09:00)
[2018-08-10 10:55] VITALS: O2SAT 96
--- NOTE | 2018-08-10 11:14 | RAD REPORT ---
EXAM DESCRIPTION: US - UPPER EXTREMITY VENOUS UNILATE - 08/10/2018 11:04 am CLINICAL HISTORY: Right arm pain and swelling COMPARISON: None. TECHNIQUE: Real-time sonographic evaluation of the right upper extremity deep venous systems was per formed. FINDINGS: Normal compressibility, flow augmentation, phasic flow and spontaneous flow are identified in the right upper extremity deep venous system. PICC line is identifiable with no thrombus along th e course of the tubing. No intraluminal filling defects seen. Internal jugular and subclavian veins a re normal as well. IMPRESSION: No DVT in the right upper extremity.
--- NOTE | 2018-08-10 11:36 | P.PN ---
Subjective Date of Service: 08/10/18 Chief Complaint: acute pancreatitis Subjective: No new changes Patient seen and examined at bedside. No family at bedside. Chart reviewed and case discussed with nursing staff. Patient in considerable amount of pain, still requiring IV pain medications. Review of Systems 10-point ROS is otherwise unremarkable Physical Examination - Vital Signs Temperature: 98.9 F Blood Pressure: 184/78 Pulse: 84 Respirations: 20 Pulse Ox (%): 96 - Physical Exam General: Alert, Oriented x3, Mild distress, Moderate distress HEENT: Atraumatic, PERRLA, EOMI Neck: Supple, JVD not distended Respiratory: Clear to auscultation bilaterally, Normal air movement Cardiovascular: Regular rate/rhythm, Normal S1 S2 Gastrointestinal: Normal bowel sounds, Tenderness, Guarding Musculoskeletal: No tenderness Integumentary: No rashes Neurological: Normal speech, Normal tone, Normal affect Assessment And Plan - Current Problems (Diagnosis) (1) Choledocholithiasis Current Visit: Yes Status: Acute Plan: CT abdomen was positive for common bile dilatation along with hydronephrosis. - The MRCP and unfortunately was positive for a small 5 mm filling defect consistent with choledocholithiasis. It also showed intrahepatic and extrahepatic biliary tree dilatation. There was a 15 mm common bile duct diameter. - initial plan was to transfer patient to [facility] as no GI available yesterday. Unfortunately, no beds available over there and therefore patient was unable to be transferred. Dr. law was consulted, pending ERCP today. - continue pain control and anti emetics as needed - continue to keep NPO (2) Hydronephrosis Current Visit: Yes Status: Acute Plan: Noted on the CT scan. - urology consulted. I will touch base with Dr. Ortiz after ERCP today. Qualifiers: Hydronephrosis type: with renal calculous obstruction Qualified Code(s): N13.2 - Hydronephrosis with renal and ureteral calculous obstruction (3) Pancreatitis Current Visit: Yes Status: Acute Plan: Continue to keep NPO, pain control and anti emetics as needed. Pending ERCP today Qualifiers: Chronicity: acute Pancreatitis type: unspecified pancreatitis type Acute pancreatitis complication: unspecified Qualified Code(s): K85.90 - Acute pancreatitis without necrosis or infection, unspecified (4) Hypokalemia Onset Date: 04/26/16 Current Visit: No Status: Resolved (5) Hypertension Current Visit: No Status: Chronic Plan: Continue to monitor blood pressures IV blood pressure medications as needed. 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 PO BB was being held due to NPO status. Patient with a-fib with RVR. Restarted pO metoprolol and patient in NSR since then. - Plan DVT prophylaxis: Hold GI prophylaxis: None Diet: NPO Disposition: Unable to do ERCP here, per GI. Continue to wait to transfer patient. Transfer once accepted.
--- NOTE | 2018-08-11 14:54 | EKG ---
Test Date: 2018-08-08 Test Time: 16:40:31 Materials Assistant: CORINNE MEASUREMENT RESULTS: Intervals: Rate: 60 GA: 158 QRSD: 80 QT: 366 QTc: 366 [place]: P: 2 GA: 158 QRS: 30 T: 140 INTERPRETIVE STATEMENTS: Normal sinus rhythm ST & T wave abnormality, consider lateral ischemia Abnormal ECG Compared to ECG 08/08/2018 13:23:53 Possible ischemia now present Atrial fibrillation no longer present Ventricular premature complex(es) no longer present ST (T wave) deviation still present Electronically Signed On 08-11-18 14:47:59 CDT by Christoph Houser
== END 2018-08-10 12:04 | disposition short-term general hospital (02) | DRG 439 ==
LOC: ER 04:23 → ERHOLD 06:54 → 4TH 08:19
PROVIDERS: ADMIT Internal Medicine; ATTEND Family Medicine
PROC: 02HV33Z Insertion of Infusion Device into Superior Vena Cava, Percutaneous Approach (ICD-10-PCS; principal; 2018-08-09)
DX: K85.10 Biliary acute pancreatitis without necrosis or infection (principal); N13.2 Hydronephrosis with renal and ureteral calculous obstruction; E87.6 Hypokalemia; I48.91 Unspecified atrial fibrillation; Z53.09 Procedure and treatment not carried out because of other contraindication; I10 Essential (primary) hypertension; K76.0 Fatty (change of) liver, not elsewhere classified; E11.9 Type 2 diabetes mellitus without complications; I25.10 Atherosclerotic heart disease of native coronary artery without angina pectoris; Z88.5 Allergy status to narcotic agent
CPT/HCPCS: 36415; 71045; 74177; 74181; 80048; 80053; 80061; 80076; 82962; 83690; 83735; 83880; 84132; 84484; 85025; 85610; 93005; 93971; 96365; 96366; 96375; 99285; C9113; J0360; J1170; J1650; J2270; J2405; J2550; J3010; J7030; Q9967

== ENCOUNTER 2018-09-07 18:24 | Observation (INO) | payer OTHER ==
--- OUTSIDE RECORDS SUMMARY | 2018-09-07 18:27 | XMS REPORT | Clinical Summary ---
:1940 [facility] Address [address] [place] [address] Care Team Providers Name Role Phone PinoRoscoe Primary Care Provider Allergies Active Allergy Reactions Severity Noted Date Comments Codeine 03/21/2016 Propoxyphene 03/21/2016 Abciximab Other (See Comments) 03/22/2016 Decrease in platelet count to 6 Medications Medication Sig Dispensed Refills Start Date End Date Status glipiZIDE Take 5 mg by 0 Active (GLUCOTROL) 5 MG mouth 2 (two) tablet times daily before meals. HYDROcodone-acetam Take 1 tablet 0 Active inophen (NORCO by mouth 7.5-325) 7.5-325 every 6 (six) mg per tablet hours as needed for Pain. traMADol (ULTRAM) Take 50 mg by 0 Active 50 mg tablet mouth every 6 (six) hours as needed for Pain. melatonin 5 mg Tab Take 1 tablet 30 tablet 0 03/26/2016 Active tablet (5 mg total) by mouth every night as needed. atorvastatin Take 40 mg by 0 Active (LIPITOR) 40 MG mouth daily. tablet losartan (COZAAR) Take 100 mg 0 Active 100 MG tablet by mouth daily. aspirin 81 MG Take 81 mg by 0 Active chewable tablet mouth daily. omeprazole Take 1 120 capsule 1 08/18/2018 10/17/2018 Active (PRILOSEC) 40 MG capsule (40 capsule mg total) by mouth 2 (two) times daily for 60 days. amLODIPine Take 1 tablet 30 tablet 0 08/19/2018 09/18/2018 Active (NORVASC) 10 MG (10 mg total) tablet by mouth daily for 30 days. hydrALAZINE Take 1 tablet 90 tablet 0 08/18/2018 09/17/2018 Active (APRESOLINE) 100 (100 mg MG tablet total) by mouth every 8 (eight) hours for 30 days. isosorbide Take 1 tablet 30 tablet 0 08/19/2018 09/18/2018 Active mononitrate (30 mg total) (IMDUR) 30 MG 24 by mouth hr tablet daily for 30 days. metoprolol Take 1 tablet 60 tablet 0 08/18/2018 09/17/2018 Active (TOPROL-XL) 100 MG (100 mg 24 hr tablet total) by mouth 2 (two) times daily for 30 days. omeprazole Take 40 mg by 0 08/18/2018 Discontinued (PRILOSEC) 40 MG mouth daily. capsule metoprolol Take 50 mg by 0 08/18/2018 Discontinued (LOPRESSOR) 50 MG mouth 2 (two) tablet times daily. prasugrel Take 1 tablet 30 tablet 0 03/26/2016 08/10/2018 Discontinued (EFFIENT) 10 mg (10 mg total) Tab tablet by mouth daily. furosemide (LASIX) Take 20 mg by 0 08/18/2018 Discontinued 20 MG tablet mouth daily. Active Problems Problem Noted Date Choledocholithiasis 08/10/2018 Nephrolithiasis 08/10/2018 Acute encephalopathy 08/10/2018 Retroperitoneal hematoma 03/23/2016 Acute respiratory failure with hypoxemia 03/22/2016 Unstable angina 03/21/2016 ST segment depression 03/21/2016 HTN (hypertension) 03/21/2016 HLD (hyperlipidemia) 03/21/2016 DM (diabetes mellitus screen) 03/21/2016 Encounters Date Type Specialty Care Team Description 08/15/2018 Anesthesia Event Gastroenterology Jeff Lepe MD 08/15/2018 Surgery Gastroenterology Roddy Bernard ERCP,PAPILLOTOMY Taylor 08/13/2018 Anesthesia Event Gastroenterology Chance Duque MD 08/10/2018 [facility] Internal [facility] Acute encephalopathy; - Encounter Medicine MD Opal Acute respiratory failure with hypoxemia (HCC); 08/18/2018 Raza, Choledocholithiasis; Shira Morgan MD Encounter for screening for diabetes mellitus; Serena, Nephrolithiasis; MD Lili Retroperitoneal hematoma; Coronary artery disease due to lipid rich plaque; Acute pancreatitis, unspecified complication status, unspecified pancreatitis type; Gallstones; Atrial fibrillation, unspecified type (HCC); Type 2 diabetes mellitus with hyperglycemia, without long-term current use of insulin ([facility]); Essential hypertension; Metabolic encephalopathy; Sleep apnea with cognitive complaints; 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[facility]); Severe muscle deconditioning; Atrial fibrillation with RVR ([facility]) 08/10/2018 Travel 08/10/2018 Telephone Internal Medicine Idris Joseph Abdominal Pain MD Opal 08/08/2018 Telephone Internal Medicine Kassy Jurado MD 08/07/2018 Telephone Internal Medicine Idrsi Joseph Abdominal Pain MD Opal after 09/06/2017 Immunizations Name Dates Previously Given Next Due Pneumococcal Polysaccharide (Pneumovax) 03/23/2016 Social History Tobacco Use Types Packs/Day Years Used Date Never Smoker Smokeless Tobacco: Never Used Alcohol Use Drinks/Week oz/Week Comments No Alcohol Habits Answer Date Recorded How often do you have a drink containing alcohol? Never 08/10/2018 How many drinks containing alcohol do you have on a typical Not asked day when you are drinking? How often do you have six or more drinks on one occasion? Not asked Sex Assigned at Date Recorded Not on file Job Start Date Occupation Industry Not on file Not on file Not on file Travel History Travel Start Travel End No recent travel history available. Last Filed Vital Signs Vital Sign Reading Time Taken Blood Pressure 146/54 08/18/2018 4:50 PM CDT Pulse 52 08/18/2018 4:50 PM CDT Temperature 36.4 C (97.6 F) 08/18/2018 11:12 AM CDT Respiratory Rate 18 08/18/2018 11:31 AM CDT Oxygen Saturation 96% 08/18/2018 11:31 AM CDT Inhaled Oxygen Concentration 30% 08/18/2018 3:17 AM CDT Weight 75.3 kg (166 lb) 08/13/2018 1:33 PM CDT Height 149.9 cm (4' 11.02") 08/13/2018 1:33 PM CDT Body Mass Index 33.51 08/13/2018 1:33 PM CDT Plan of Treatment Not on file Implants Implanted Type Area Real Estate Sales Agent Device Shelf Model / Identifier Expiration Serial / Date Lot Device Clsr Angio-Seal Vip 6fr [id number] - [id number] Cardiovascular N/A: Groin [facility] [employer]ANG 11/16/2016 [id number] / Implanted: Qty: 1 on 03/21/2016 by Miguel Ángel Chaudhry MD MED: CARDIAC / SURG [id number] Synergy Stents-Coronary N/A: [place] 01/15/2017 [id number] / Implanted: Qty: 1 on 03/21/2016 by Miguel Ángel Chaudhry MD Coronary [employer] / [id number] Procedures Procedure Name Priority Date/Time Associated Comments Diagnosis RHYTHM STRIP - SCAN 08/19/2018 11:40 AM CDT REPORT OF PROCEDURE - 08/19/2018 11:40 ENDOSCOPY SCAN AM CDT RHYTHM STRIP - SCAN 08/19/2018 10:41 AM CDT US RENAL WITH DOPPLER Routine 08/18/2018 4:03 Results for this PM CDT procedure are in the results section. POCT-GLUCOSE METER Routine 08/18/2018 7:41 Results for this AM CDT procedure are in the results section. MAGNESIUM Routine 08/18/2018 5:01 Results for this AM CDT procedure are in the results section. CBC (HEMOGRAM ONLY) Routine 08/18/2018 5:01 Results for this AM CDT procedure are in the results section. HEPATIC FUNCTION PANEL Routine 08/18/2018 5:01 Results for this AM CDT procedure are in the results section. BASIC METABOLIC PANEL Routine 08/18/2018 5:01 Results for this (7) AM CDT procedure are in the results section. POCT-GLUCOSE METER Routine 08/17/2018 11:05 Results for this PM CDT procedure are in the results section. POCT-GLUCOSE METER Routine 08/17/2018 5:19 Results for this PM CDT procedure are in the results section. NM CARDIAC PET Routine 08/17/2018 2:17 Results for this PERFUSION REST AND/OR PM CDT procedure are in STRESS the results section. POCT-GLUCOSE METER Routine 08/17/2018 1:25 Results for this PM CDT procedure are in the results section. POCT-GLUCOSE METER Routine 08/17/2018 7:08 Results for this AM CDT procedure are in the results section. MAGNESIUM Routine 08/17/2018 6:07 Results for this AM CDT procedure are in the results section. CBC (HEMOGRAM ONLY) Routine 08/17/2018 6:07 Results for this AM CDT procedure are in the results section. HEPATIC FUNCTION PANEL Routine 08/17/2018 6:07 Results for this AM CDT procedure are in the results section. BASIC METABOLIC PANEL Routine 08/17/2018 6:07 Results for this (7) AM CDT procedure are in the results section. POCT-GLUCOSE METER Routine 08/16/2018 11:37 Results for this PM CDT procedure are in the results section. POCT-GLUCOSE METER Routine 08/16/2018 5:13 Results for this PM CDT procedure are in the results section. CBC W/PLT COUNT & AUTO STAT 08/16/2018 12:56 Results for this DIFFERENTIAL PM CDT procedure are in the results section. COMPREHENSIVE STAT 08/16/2018 12:56 Results for this METABOLIC PANEL PM CDT procedure are in the results section. CBC W/PLT COUNT & AUTO STAT 08/16/2018 12:56 Results for this DIFFERENTIAL PM CDT procedure are in the results section. POCT-GLUCOSE METER Routine 08/16/2018 12:10 Results for this PM CDT procedure are in the results section. POCT-GLUCOSE METER Routine 08/16/2018 7:18 Results for this AM CDT procedure are in the results section. POCT-GLUCOSE METER Routine 08/15/2018 10:32 Results for this PM CDT procedure are in the results section. POCT-GLUCOSE METER Routine 08/15/2018 5:33 Results for this PM CDT procedure are in the results section. REPORT OF PROCEDURE - 08/15/2018 5:30 ENDOSCOPY URL PM CDT FL ERCP Routine 08/15/2018 4:55 Results for this PM CDT procedure are in the results section. TISSUE EXAM AP Routine 08/15/2018 4:52 Results for this PM CDT procedure are in the results section. UPPER ENDOSCOPY,BIOPSY 08/15/2018 12:38 Common bile duct PM CDT (CBD) obstruction ERCP,BALLOON SWEEPING 08/15/2018 12:38 Common bile duct PM CDT (CBD) obstruction PROCEDURE W/ C-ARM 08/15/2018 12:38 Common bile duct PM CDT (CBD) obstruction ERCP,PAPILLOTOMY 08/15/2018 12:38 Common bile duct PM CDT (CBD) obstruction POCT-GLUCOSE METER Routine 08/15/2018 7:55 Results for this AM CDT procedure are in the results section. MAGNESIUM Routine 08/15/2018 4:15 Results for this AM CDT procedure are in the results section. HEPATIC FUNCTION PANEL Routine 08/15/2018 4:15 Results for this AM CDT procedure are in the results section. BASIC METABOLIC PANEL Routine 08/15/2018 4:15 Results for this (7) AM CDT procedure are in the results section. CBC (HEMOGRAM ONLY) Routine 08/15/2018 4:15 Results for this AM CDT procedure are in the results section. POCT-GLUCOSE METER Routine 08/14/2018 11:04 Results for this PM CDT procedure are in the results section. POCT-GLUCOSE METER Routine 08/14/2018 12:06 Results for this PM CDT procedure are in the results section. POCT-GLUCOSE METER Routine 08/14/2018 8:01 Results for this AM CDT procedure are in the results section. MAGNESIUM Routine 08/14/2018 4:18 Results for this AM CDT procedure are in the results section. HEPATIC FUNCTION PANEL Routine 08/14/2018 4:18 Results for this AM CDT procedure are in the results section. BASIC METABOLIC PANEL Routine 08/14/2018 4:18 Results for this (7) AM CDT procedure are in the results section. CBC (HEMOGRAM ONLY) Routine 08/14/2018 4:18 Results for this AM CDT procedure are in the results section. POCT-GLUCOSE METER Routine 08/13/2018 10:36 Results for this PM CDT procedure are in the results section. POCT-GLUCOSE METER Routine 08/13/2018 4:42 Results for this PM CDT procedure are in the results section. POCT-GLUCOSE METER Routine 08/13/2018 1:18 Results for this PM CDT procedure are in the results section. POCT-GLUCOSE METER Routine 08/13/2018 11:59 Results for this AM CDT procedure are in the results section. POCT-GLUCOSE METER Routine 08/13/2018 7:05 Results for this AM CDT procedure are in the results section. MAGNESIUM Routine 08/13/2018 3:17 Results for this AM CDT procedure are in the results section. HEPATIC FUNCTION PANEL Routine 08/13/2018 3:17 Results for this AM CDT procedure are in the results section. BASIC METABOLIC PANEL Routine 08/13/2018 3:17 Results for this (7) AM CDT procedure are in the results section. CBC (HEMOGRAM ONLY) Routine 08/13/2018 3:17 Results for this AM CDT procedure are in the results section. POCT-GLUCOSE METER Routine 08/12/2018 10:07 Results for this PM CDT procedure are in the results section. POCT-GLUCOSE METER Routine 08/12/2018 4:26 Results for this PM CDT procedure are in the results section. POCT-GLUCOSE METER Routine 08/12/2018 12:46 Results for this PM CDT procedure are in the results section. CT ABDOMEN/PELVIS Routine 08/12/2018 11:55 Results for this WITH/WITHOUT IV AM CDT procedure are in CONTRAST the results section. CT BRAIN WITHOUT IV Routine 08/12/2018 11:55 Results for this CONTRAST AM CDT procedure are in the results section. POCT-GLUCOSE METER Routine 08/12/2018 7:11 Results for this AM CDT procedure are in the results section. LACTIC ACID, VENOUS Routine 08/12/2018 4:36 Results for this AM CDT procedure are in the results section. FOLATE, RBC Routine 08/12/2018 4:36 Results for this AM CDT procedure are in the results section. CBC (HEMOGRAM ONLY) Routine 08/12/2018 4:36 Results for this AM CDT procedure are in the results section. VITAMIN B12 Routine 08/12/2018 4:35 Results for this AM CDT procedure are in the results section. MAGNESIUM Routine 08/12/2018 4:35 Results for this AM CDT procedure are in the results section. HEPATIC FUNCTION PANEL Routine 08/12/2018 4:35 Results for this AM CDT procedure are in the results section. BASIC METABOLIC PANEL Routine 08/12/2018 4:35 Results for this (7) AM CDT procedure are in the results section. TROPONIN I Routine 08/12/2018 12:51 Results for this AM CDT procedure are in the results section. POCT-GLUCOSE METER Routine 08/11/2018 10:30 Results for this PM CDT procedure are in the results section. ECHOCARDIOGRAM REPORT 08/11/2018 9:11 - SCAN PM CDT PROCALCITONIN Routine 08/11/2018 8:46 Results for this PM CDT procedure are in the results section. TROPONIN I Routine 08/11/2018 5:51 Results for this PM CDT procedure are in the results section. ECG 12-LEAD Routine 08/11/2018 3:42 Results for this PM CDT procedure are in the results section. POCT-GLUCOSE METER Routine 08/11/2018 11:33 Results for this AM CDT procedure are in the results section. XR ABDOMEN 1 VIEW Routine 08/11/2018 10:50 Results for this AM CDT procedure are in the results section. POCT-HEMOGLOBIN Routine 08/11/2018 9:36 Results for this AM CDT procedure are in the results section. POCT-HEMATOCRIT Routine 08/11/2018 9:36 Results for this AM CDT procedure are in the results section. POCT-CALCIUM IONIZED Routine 08/11/2018 9:36 Results for this AM CDT procedure are in the results section. POCT-GLUCOSE Routine 08/11/2018 9:36 Results for this AM CDT procedure are in the results section. POCT-POTASSIUM Routine 08/11/2018 9:36 Results for this AM CDT procedure are in the results section. POCT-SODIUM Routine 08/11/2018 9:36 Results for this AM CDT procedure are in the results section. POCT-BLOOD GASES, Routine 08/11/2018 9:36 Results for this VENOUS AM CDT procedure are in the results section. POCT-LACTIC ACID, Routine 08/11/2018 9:32 Results for this VENOUS AM CDT procedure are in the results section. POCT-GLUCOSE METER Routine 08/11/2018 8:08 Results for this AM CDT procedure are in the results section. URINALYSIS W/ REFLEX Routine 08/11/2018 7:48 Results for this URINE CULTURE AM CDT procedure are in the results section. MAGNESIUM Routine 08/11/2018 5:18 Results for this AM CDT procedure are in the results section. HEPATIC FUNCTION PANEL Routine 08/11/2018 5:18 Results for this AM CDT procedure are in the results section. BASIC METABOLIC PANEL Routine 08/11/2018 5:18 Results for this (7) AM CDT procedure are in the results section. CBC (HEMOGRAM ONLY) Routine 08/11/2018 5:18 Results for this AM CDT procedure are in the results section. BLOOD CULTURE Routine 08/11/2018 12:25 Results for this AM CDT procedure are in the results section. MAGNESIUM Routine 08/11/2018 12:24 Results for this AM CDT procedure are in the results section. LIPASE Routine 08/11/2018 12:24 Results for this AM CDT procedure are in the results section. TROPONIN I Routine 08/11/2018 12:24 Results for this AM CDT procedure are in the results section. BASIC METABOLIC PANEL Routine 08/11/2018 12:24 Results for this (7) AM CDT procedure are in the results section. HEPATIC FUNCTION PANEL Routine 08/11/2018 12:24 Results for this AM CDT procedure are in the results section. BLOOD CULTURE Routine 08/11/2018 12:24 Results for this AM CDT procedure are in the results section. POCT-GLUCOSE METER Routine 08/10/2018 11:23 Results for this PM CDT procedure are in the results section. XR CHEST 1 VIEW Routine 08/10/2018 9:04 Results for this PORTABLE/BEDSIDE PM CDT procedure are in the results section. T4, FREE Routine 08/10/2018 7:00 Results for this PM CDT procedure are in the results section. AMMONIA Routine 08/10/2018 7:00 Results for this PM CDT procedure are in the results section. TSH/FREE T4 IF Routine 08/10/2018 7:00 Results for this INDICATED PM CDT procedure are in the results section. POCT-GLUCOSE METER Routine 08/10/2018 6:21 Results for this PM CDT procedure are in the results section. CBC W/PLT COUNT & AUTO Routine 08/10/2018 5:45 Results for this DIFFERENTIAL PM CDT procedure are in the results section. CBC W/PLT COUNT & AUTO Routine 08/10/2018 5:45 Results for this DIFFERENTIAL PM CDT procedure are in the results section. HEMOGLOBIN A1C Routine 08/10/2018 5:44 Results for this PM CDT procedure are in the results section. PT/APTT Routine 08/10/2018 5:44 Results for this PM CDT procedure are in the results section. B-TYPE NATRIURETIC Routine 08/10/2018 5:43 Results for this FACTOR (BNP) PM CDT procedure are in the results section. LACTIC ACID, VENOUS Routine 08/10/2018 5:43 Results for this PM CDT procedure are in the results section. 2D ECHO W/ DOPPLER Routine 08/10/2018 4:59 Results for this (CW/PW/COLOR) PM CDT procedure are in the results section. ECG 12-LEAD Routine 08/10/2018 4:46 Results for this PM CDT procedure are in the results section. after 09/06/2017 Results RHYTHM STRIP - SCAN (08/19/2018 11:40 AM CDT)Only the most recent of2 resultswithin the time period is included. Narrative Performed At EKG-SCANNED (08/19/2018 11:40 AM CDT) Narrative Performed At US Renal with Doppler (08/18/2018 4:03 PM CDT) Specimen Narrative Performed At FINAL REPORT [facility] Renal ultrasound and Duplex Doppler ultrasound of kidneys dated 08/18/2018 Comment:Real-time transabdominal renal ultrasound was performed. Right kidney measures 9.6 x 4.6 x 4.3cm.Left kidney measures 9.6 x 4.8 x 4.4cm.Right renal cortex measures 0.8 cm.Left renal cortex measures 1.0 cm. Echogenicity of both renal parenchyma is minimally increased. No hydronephrosis, solid or cystic mass seen. The urinary bladder measures 200 cc. Color Doppler and spectral ultrasound demonstrates patent main renal artery and vein bilaterally. The acceleration times of the right upper, middle, and inferior intralobar arteries are 0.06,0.07,and 0.03 seconds respectively. The acceleration times of the left upper, middle, and inferior intralobar arteries are 0.09,0.06,and 0.06 seconds respectively. The acceleration indices of theright upper, middle, and inferior intralobar arteries are 1.62, 2.09 and 4.36 m/sec2 respectively.The acceleration indices of theleft upper, middle, and inferior intralobar arteries are 2.18, 2.22 and 2.12 m/sec2 respectively. The resistive indices of the right upper, middle, and inferior intralobar arteries are 0.75, 0.74, and 0.71 respectively.The resistive indices of the left upper, middle, and inferior intralobar arteries are 0.75, 0.77, and 0.72 respectively. Impression: 1. Echogenic kidneys suggestive of renal parenchymal disease. 2. Abnormal Doppler of the kidneys with elevated resistive indicis. Signed: Baldemar Haley MD Report Verified Date/Time:08/18/2018 16:58:13 Reading Location: [address] Radiology Reading Room Procedure Note Interface, External Ris In - 08/18/2018 5:00 PM CDT FINAL REPORT Renal ultrasound and Duplex Doppler ultrasound of kidneys dated 08/18/2018 Comment: Real-time transabdominal renal ultrasound was performed. Right kidney measures 9.6 x 4.6 x 4.3 cm. Left kidney measures 9.6 x 4.8 x 4.4 cm. Right renal cortex measures 0.8 cm. Left renal cortex measures 1.0 cm. Echogenicity of both renal parenchyma is minimally increased. No hydronephrosis, solid or cystic mass seen. The urinary bladder measures 200 cc. Color Doppler and spectral ultrasound demonstrates patent main renal artery and vein bilaterally. The acceleration times of the right upper, middle, and inferior intralobar arteries are 0.06, 0.07, and 0.03 seconds respectively. The acceleration times of the left upper, middle, and inferior intralobar arteries are 0.09, 0.06, and 0.06 seconds respectively. The acceleration indices of the right upper, middle, and inferior intralobar arteries are 1.62, 2.09 and 4.36 m/sec2 respectively. The acceleration indices of the left upper, middle, and inferior intralobar arteries are 2.18, 2.22 and 2.12 m/sec2 respectively. The resistive indices of the right upper, middle, and inferior intralobar arteries are 0.75, 0.74, and 0.71 respectively. The resistive indices of the left upper, middle, and inferior intralobar arteries are 0.75, 0.77, and 0.72 respectively. Impression: 1. Echogenic kidneys suggestive of renal parenchymal disease. 2. Abnormal Doppler of the kidneys with elevated resistive indicis. Signed: Baldemar Haley MD Report Verified Date/Time: 08/18/2018 16:58:13 Reading Location: [address] Radiology Reading Room Performing Organization Address City/State/Zipcode Phone Number [employer] POC-Glucose meter (08/18/2018 7:41 AM CDT)Only the most recent of29 resultswithin the time period is included. POC-Glucose Meter 141 (H)Comment: TESTED AT 70 - 110 mg/dL [facility] [address] [facility] [id number] Specimen Blood Performing Organization Address City/[facility]/Zipcode Phone Number [address] [address] [place] CBC (Hemogram only) (08/18/2018 5:01 AM CDT)Only the most recent of7 resultswithin the time period is included. WBC 11.7 (H) 3.5 - 10.5 K/L [facility] RBC 3.29 (L) 3.93 - 5.22 M/L [facility] Hemoglobin 10.4 (L) 11.2 - 15.7 GM/DL [facility] Hematocrit 31.8 (L) 34.1 - 44.9 % [facility] MCV 96.7 (H) 79.4 - 94.8 fL [facility] MCH 31.6 25.6 - 32.2 pg [facility] MCHC 32.7 32.2 - 35.5 GM/DL [facility] RDW 16.6 (H) 11.7 - 14.4 % [facility] Platelets 175 150 - 450 K/CU MM [facility] MPV 11.4 9.4 - 12.3 fL [facility] nRBC 0 0 - 0 /100 WBC [facility] Specimen Blood Performing Organization Address City/State/Zipcode Phone Number [address] [address] [place] Magnesium (08/18/2018 5:01 AM CDT)Only the most recent of8 resultswithin the time period is included. Magnesium 1.9 1.6 - 2.6 mg/dL [facility] Specimen Blood Performing Organization Address City/[facility]/Zipcode Phone Number [address] [address] [place] Hepatic function panel (08/18/2018 5:01 AM CDT)Only the most recent of8 resultswithin the time period is included. Protein, Total 5.4 (L) 6.0 - 8.3 gm/dL [facility] Albumin 2.9 (L) 3.5 - 5.0 g/dL [facility] Total Bilirubin 0.4 0.2 - 1.2 mg/dL [facility] Bilirubin, Direct 0.2 0.1 - 0.5 mg/dL [facility] Alkaline Phosphatase 73 40 - 150 U/L [facility] AST 20 5 - 34 U/L [facility] ALT 17 6 - 55 U/L [facility] Specimen Blood Performing Organization Address City/[facility] Phone Number [facility] [address] [place] [address] CENTER Basic Metabolic Panel (08/18/2018 5:01 AM CDT)Only the most recent of8 resultswithin the time period is included. Sodium 134 (L) 136 - 145 meq/L [facility] Potassium 4.2 3.5 - 5.1 meq/L [facility] Chloride 103 98 - 107 meq/L [facility] [facility] CO2 28 22 - 29 meq/L [facility] BUN 12 7 - 21 mg/dL [facility] Creatinine 0.74 0.57 - 1.25 mg/dL [facility] Glucose 124 (H) 70 - 105 mg/dL [facility] Calcium 9.9 8.4 - 10.2 mg/dL [facility] EGFR 76Comment: ESTIMATED GFR IS mL/min/1.73 sq m [facility] NOT ACCURATE [facility] CLEARANCE IN PREDICTING GLOMERULAR FILTRATION RATE. ESTIMATED GFR IS NOT APPLICABLE FOR DIALYSIS PATIENTS. Specimen Blood Performing Organization Address City/[facility] Cent[facility]ode Phone Number [facility]NA [facility] [address] [place] [address] [facility] myocardial perfusion PET (rest and stress) (08/17/2018 2:17 PM CDT) Specimen Narrative Performed At FINAL REPORT [facility] PROCEDURE: MYOCARDIAL PERFUSION PET IMAGING (Rest/Stress) CPT CODE: 16821 INDICATION: Define extent of known CAD, chest discomfort CARDIOVASCULAR PROFILE: CAD History: Previous coronary stent Symptoms: Chest discomfort Risk Factors: Hypertension, diabetes, hyperlipidemia, obesity BMI: 33 Medications: Aspirin, atorvastatin, losartan, metoprolol, amlodipine STRESS PROTOCOL: Pharmacologic stress was achieved with a 10-second intravenous infusion of regadenoson 0.4 mg. The radiopharmaceutical was administered 30 seconds after the start of the regadenoson infusion. IMAGING PROTOCOL: Limited low-dose CT imaging was performed for attenuation correction. 40.0 mCi of Rb-82 chloride was injected intravenously at rest, and gated PET images were obtained. Then, 40.0 mCi of Rb-82 chloride was injected intravenously at peak stress, and gated PET images were obtained. REST FINDINGS: HR: 54/min BP: 145/48 mmHg Prelim. EKG: Sinus bradycardia, nonspecific ST and T wave changes. Perfusion: Normal. Wall Motion: Normal (LVEF 83%). LV Volume: Normal. RV Volume: Normal. STRESS FINDINGS: HR: 71/min (50% of MPHR) BP: 104/33 mmHg Prelim. EKG: Less than [address] depressions in V3 and V4. Symptoms: None (treatment not required). Perfusion: Normal. Wall Motion: Normal (LVEF 83%). LV Volume: Not significantly changed from rest. IMPRESSION: 1. Normal study. 2. Normal myocardial perfusion. 3. Normal LVEF of 83%, which does not deteriorate with pharmacologic stress. 4. Normal extracardiac tracer distribution. 5. There is no prior study for comparison. Signed: Howard Bourgeois MD Report Verified Date/Time:08/17/2018 15:22:38 Reading Location: [address] P327[facility] Reading Room Procedure Note Interface, External Ris In - 08/17/2018 3:24 PM CDT FINAL REPORT PROCEDURE: MYOCARDIAL PERFUSION PET IMAGING (Rest/Stress) CPT CODE: 47364 INDICATION: Define extent of known CAD, chest discomfort CARDIOVASCULAR PROFILE: CAD History: Previous coronary stent Symptoms: Chest discomfort Risk Factors: Hypertension, diabetes, hyperlipidemia, obesity BMI: 33 Medications: Aspirin, atorvastatin, losartan, metoprolol, amlodipine STRESS PROTOCOL: Pharmacologic stress was achieved with a 10-second intravenous infusion of regadenoson 0.4 mg. The radiopharmaceutical was administered 30 seconds after the start of the regadenoson infusion. IMAGING PROTOCOL: Limited low-dose CT imaging was performed for attenuation correction. 40.0 mCi of Rb-82 chloride was injected intravenously at rest, and gated PET images were obtained. Then, 40.0 mCi of Rb-82 chloride was injected intravenously at peak stress, and gated PET images were obtained. REST FINDINGS: HR: 54/min BP: 145/48 mmHg Prelim. EKG: Sinus bradycardia, nonspecific ST and T wave changes. Perfusion: Normal. Wall Motion: Normal (LVEF 83%). LV Volume: Normal. RV Volume: Normal. STRESS FINDINGS: HR: 71/min (50% of MPHR) BP: 104/33 mmHg Prelim. EKG: Less than [address] depressions in V3 and V4. Symptoms: None (treatment not required). Perfusion: Normal. Wall Motion: Normal (LVEF 83%). LV Volume: Not significantly changed from rest. IMPRESSION: 1. Normal study. 2. Normal myocardial perfusion. 3. Normal LVEF of 83%, which does not deteriorate with pharmacologic stress. 4. Normal extracardiac tracer distribution. 5. There is no prior study for comparison. Signed: Howard Bourgeois MD Report Verified Date/Time: 08/17/2018 15:22:38 Reading Location: [address] Med Reading Room Performing Organization Address City/State/Zipcode Phone Number [employer] RIS CBC with platelet count + automated diff (08/16/2018 12:56 PM CDT)Only the most recent of2 resultswithin the time period is included. WBC 12.9 (H) 3.5 - 10.5 K/L [facility] RBC 3.74 (L) 3.93 - 5.22 M/L [facility] Hemoglobin 11.6 11.2 - 15.7 GM/DL [facility] Hematocrit 35.0 34.1 - 44.9 % [facility] MCV 93.6 79.4 - 94.8 fL [facility] MCH 31.0 25.6 - 32.2 pg [facility] MCHC 33.1 32.2 - 35.5 GM/DL [facility] RDW 16.0 (H) 11.7 - 14.4 % [facility] Platelets 165 150 - 450 K/CU MM [facility] MPV 10.1 9.4 - 12.3 fL [facility] nRBC 0 0 - 0 /100 WBC [facility] % Neutros 84 % [facility] % Lymphs 7 % [facility] % Monos 7 % [facility] % Eos 2 % [facility] % Baso 0 % [facility] # Neutros 10.89 (H) 1.56 - 6.13 K/L [facility] # Lymphs 0.90 (L) 1.18 - 3.74 K/L [facility] # Monos 0.84 (H) 0.24 - 0.36 K/L [facility] # Eos 0.20 0.04 - 0.36 K/L [facility] # Baso 0.05 0.01 - 0.08 K/L [facility] Immature 1 0 - 1 % [facility] CENTER Specimen Blood Performing Organization Address City/State/Zipcode Phone Number [facility] [address] [phone] CENTER Comprehensive metabolic panel (08/16/2018 12:56 PM CDT) Protein, Total 5.4 (L) 6.0 - 8.3 gm/dL [facility] Albumin 2.9 (L) 3.5 - 5.0 g/dL [facility] Alkaline Phosphatase 86 40 - 150 U/L [facility] Total Bilirubin 0.4 0.2 - 1.2 mg/dL [facility] Sodium 135 (L) 136 - 145 meq/L [facility] Potassium 3.7 3.5 - 5.1 meq/L [facility] Chloride 102 98 - 107 meq/L [facility] CO2 28 22 - 29 meq/L [facility] BUN 10 7 - 21 mg/dL [facility] Creatinine 0.83 0.57 - 1.25 mg/dL [facility] Glucose 150 (H) 70 - 105 mg/dL [facility] Calcium 10.0 8.4 - 10.2 mg/dL [facility] AST 25 5 - 34 U/L [facility] ALT 23 6 - 55 U/L [facility] EGFR 66Comment: ESTIMATED GFR mL/min/1.[address] [facility] IS NOT ACCURATE [facility] CREATININE CLEARANCE IN PREDICTING GLOMERULAR FILTRATION RATE. ESTIMATED GFR IS NOT APPLICABLE FOR DIALYSIS PATIENTS. Specimen Blood Performing Organization Address City/State/Zipcode Phone Number [address] [address] [place] REPORT OF PROCEDURE - ENDOSCOPY URL (08/15/2018 5:30 PM CDT) Narrative Performed At [place] ERCP (08/15/2018 4:55 PM CDT) Specimen Narrative Performed At FINAL REPORT GE RIS Fluoroscopy, less than 1 hour History:ERCP Comparison: none Findings: Fluoroscopic assistance was provided during ERCP.Fluoroscopic images taken were interpreted by the referring clinician.Please see separate procedure note for full details. Total Fluoroscopy time: 79.2 seconds Number of fluoroscopic images obtained: Four Impression: Fluoroscopy assistance as described above. Signed: Enio Ley MD Report Verified Date/Time:08/15/2018 17:37:26 Reading Location: [facility] Ortho Consult Reading Room Procedure Note Interface, External Ris In - 08/15/2018 5:39 PM CDT FINAL REPORT Fluoroscopy, less than 1 hour History:ERCP Comparison: none Findings: Fluoroscopic assistance was provided during ERCP. Fluoroscopic images taken were interpreted by the referring clinician. Please see separate procedure note for full details. Total Fluoroscopy time: 79.2 seconds Number of fluoroscopic images obtained: Four Impression: Fluoroscopy assistance as described above. Signed: Enio Ley MD Report Verified Date/Time: 08/15/2018 17:37:26 Reading Location: [facility] Ortho Consult Reading Room Performing Organization Address City/State/Zipcode Phone Number GE RIS Tissue Exam (08/15/2018 4:52 PM CDT) Case Report Surgical Pathology Report Case: [id number] [facility] Authorizing Provider:Roddy Bernardected: 08/15/2018 1652 [facility] Ordering Location: [address] Received: 08/17/2018 0800 Service Pathologist: Joanne Gu MD Specimens: A) - Duodenal, ULCERS BX B) - Biopsy, Gastric, BX DIAGNOSIS This final report is issued to give the result of immunohistochemical study for Helicobacter pylori on specimen B: [facility] A. DUODENUM, ULCERS, ENDOSCOPIC BIOPSY: - SEVERE ULCERATION - NO GRANULOMAS OR VIRAL INCLUSIONS SEEN - NO DYSPLASIA OR MALIGNANCY SEEN B. 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 Duodenal ulcers biopsy; B. [facility] Biopsy, gastric biopsy [facility] GROSS DESCRIPTION The case is received in two parts both labeled with the patient's name, Judy Calhoun, date of 1940 and accession number [id number] which corresponds to accompanying requisition page labeled with the same name and accession number. [facility] Part A is received in formalin labeled "duodenal" and consists of two brown irregular pieces of tissue measuring 0.4 x 0.2 x 0.2 cm and 0.5 x 0.2 x 0.2 cm. The specimen is submitted in toto following filtration in cassette A1. Part B is received in formalin labeled "biopsy, gastric" and consists of four white-rosas irregular pieces of tissue ranging from 0.2 x 0.1 x 0.1 cm to 0.5 x 0.3 x 0.2 cm. The specimen is submitted in toto following filtration in cassette B1. RP/pl MICROSCOPIC DESCRIPTION PERFORMED [facility] SPECIAL STUDIES The interpretation of this case included the use of immunohistochemistry or special stains. [facility] WARTHIN-STARRY; HELICOBACTER PYLORI [facility] Control Slides Examined: In-house known positive controls were evaluated along with the test tissue. These control slides run alongside of the patients sample show appropriate staining. Internal posit emily and negative controls when available are evaluated Immunohistochemistry technical testing was performed at [facility] Pathology Laboratory where it was developed and its performance characteristics were determined. It has not be en cleared or approved by the U.S. Food and Drug Administration. The FDA has determined that such clearance or approval is not necessary. The test is used for clinical purposes. It should not be regarde d as investigational or for research. This laboratory is certified under the Clinical Laboratory Improvement Amendments of 1988 (CLIA-88) as qualified to perform high complexity clinical laboratory testing. Specimen Tissue Tissue - Gastric biopsy sample (specimen) Performing Organization Address City/State/Zipcode Phone Number [facility] [address] [place] [address] [phone] brain without IV contrast (08/12/2018 11:55 AM CDT) Specimen Narrative Performed At FINAL REPORT [facility] CT, BRAIN, WITHOUT CONTRAST CLINICAL INDICATION:Confusion/delirium, altered LOC, unexplained COMPARISON: None TECHNIQUE:Noncontrast axial CT imaging of the brain and skull. DOSE REDUCTION: Dose modulation, iterative reconstruction, and/or weight-based adjustment of the mA/kV was utilized to reduce the radiation dose to as low as reasonably achievable. FINDINGS: No intracranial hemorrhage, midline shift or mass effect. Midline structures are normally developed. Mild chronic microvascular ischemic changes of the periventricular and subcortical white matter are present. No hydrocephalus. Orbits are within normal limits. Prior bilateral lens surgery No obstructive paranasal sinus disease. IMPRESSION: No acute intracranial findings If there is persistent clinical concern for intracranial pathology, MR examination is recommended for further characterization. Signed: Meagan Motta MD Report Verified Date/Time:08/12/2018 12:57:37 Reading Location: [facility] Radiology Reading Room Procedure Note Interface, External Ris In - 08/12/2018 12:59 PM CDT FINAL REPORT CT, BRAIN, WITHOUT CONTRAST CLINICAL INDICATION: Confusion/delirium, altered LOC, unexplained COMPARISON: None TECHNIQUE: Noncontrast axial CT imaging of the brain and skull. DOSE REDUCTION: Dose modulation, iterative reconstruction, and/or weight-based adjustment of the mA/kV was utilized to reduce the radiation dose to as low as reasonably achievable. FINDINGS: No intracranial hemorrhage, midline shift or mass effect. Midline structures are normally developed. Mild chronic microvascular ischemic changes of the periventricular and subcortical white matter are present. No hydrocephalus. Orbits are within normal limits. Prior bilateral lens surgery No obstructive paranasal sinus disease. IMPRESSION: No acute intracranial findings If there is persistent clinical concern for intracranial pathology, MR examination is recommended for further characterization. Signed: Meagan Motta MD Report Verified Date/Time: 08/12/2018 12:57:37 Reading Location: [facility] Radiology Reading Room Performing Organization Address City/State/Zipcode Phone Number [facility] CT abdomen/pelvis without & with IV contrast (08/12/2018 11:55 AM CDT) Specimen Narrative Performed At FINAL REPORT [facility] CT abdomen and pelvis without and with contrast History: Pancreatitis Comparison: 03/21/2016 Technique: serial axial imaging was performed without and subsequently following up to 100cc of non ionic iodinated intravenous contrast as per departmental protocol.Multiplanar images are reconstructed and reviewed when indicated. This CT examination is performed using one or more of the following dose reduction techniques: Automated exposure control, adjustment of the mA and /or kV according to patient size, and/or use of iterative reconstruction technique. Findings: Small bilateral pleural effusions, right greater than left. Unremarkable appearance of pancreas and spleen. Diffuse fatty infiltration of the liver. The liver is otherwise unremarkable. The patient is status post cholecystectomy, with nonspecific prominence of the common bile duct. No visualized distal obstructive lesion. Mild bilateral renal cortical atrophy. There is no evidence of hydronephrosis. A nonobstructing 14 mm calculus is noted within the right renal pelvis. No ureteral calculus is appreciated. The bladder is decompressed by a Webb catheter, limiting assessment.The patient is status post hysterectomy. No small or large bowel obstruction.No apparent bowel wall thickening.No findings to indicate acute appendicitis. No free fluid or lymphadenopathy. No abdominal aortic aneurysm. Again seen is a peripherally calcified right lower quadrant extraperitoneal anterior collection, which is probably a chronic seroma. No significant change. No aggressive osseous lesion. Impression: 1. No CT findings of complicated pancreatitis. 2. Diffuse fatty infiltration of the liver. 3. 14 mm nonobstructing calculus within the right renal pelvis. 4. Small bilateral pleural effusions, right greater than left. Signed: Enio Ley MD Report Verified Date/Time:08/12/2018 13:32:12 Reading Location: [facility] Diagnostic Imaging Reading Room - [facility] F1 1120 Procedure Note Interface, External Ris In - 08/12/2018 1:34 PM CDT FINAL REPORT CT abdomen and pelvis without and with contrast History: Pancreatitis Comparison: 03/21/2016 Technique: serial axial imaging was performed without and subsequently following up to 100cc of non ionic iodinated intravenous contrast as per departmental protocol. Multiplanar images are reconstructed and reviewed when indicated. This CT examination is performed using one or more of the following dose reduction techniques: Automated exposure control, adjustment of the mA and /or kV according to patient size, and/or use of iterative reconstruction technique. Findings: Small bilateral pleural effusions, right greater than left. Unremarkable appearance of pancreas and spleen. Diffuse fatty infiltration of the liver. The liver is otherwise unremarkable. The patient is status post cholecystectomy, with nonspecific prominence of the common bile duct. No visualized distal obstructive lesion. Mild bilateral renal cortical atrophy. There is no evidence of hydronephrosis. A nonobstructing 14 mm calculus is noted within the right renal pelvis. No ureteral calculus is appreciated. The bladder is decompressed by a Webb catheter, limiting assessment. The patient is status post hysterectomy. No small or large bowel obstruction. No apparent bowel wall thickening. No findings to indicate acute appendicitis. No free fluid or lymphadenopathy. No abdominal aortic aneurysm. Again seen is a peripherally calcified right lower quadrant extraperitoneal anterior collection, which is probably a chronic seroma. No significant change. No aggressive osseous lesion. Impression: 1. No CT findings of complicated pancreatitis. 2. Diffuse fatty infiltration of the liver. 3. 14 mm nonobstructing calculus within the right renal pelvis. 4. Small bilateral pleural effusions, right greater than left. Signed: Enio Ley MD Report Verified Date/Time: 08/12/2018 13:32:12 Reading Location: [facility] Diagnostic Imaging Reading Room - [place] [address] Performing Organization Address City/State/Zipcode Phone Number RIS Lactic acid, venous (08/12/2018 4:36 AM CDT)Only the most recent of2 resultswithin the time period is included. Lactate, Venous 0.9Comment: Specimen 0.5 - 2.2 mmol/L [facility] slightly hemolyzed [facility] Specimen Blood Performing Organization Address [facility]iatric Centercode Phone Number [address] [address] [phone] [place] Folate, RBC (08/12/2018 4:36 AM CDT) Folate, Rbc >1000 >280 ng/mL RBC [facility] Specimen Blood Narrative Performed At Performing Lab [facility] EZ [facility] [address] [address] Jerica Cooney MD, PhD, JACKIE Performing Organization Address City/State/Zipcode Phone Number [place] [address] INCORPORATED [address] [facility] Vitamin B12 (08/12/2018 4:35 AM CDT) Vitamin B12 1,063 (H) 213 - 816 pg/mL [facility] Specimen Blood Performing Organization Address [facility] Centercowv Phone Number [address] [address] [place] Troponin I (08/12/2018 12:51 AM CDT)Only the most recent of3 resultswithin the time period is included. Troponin I 0.02 0.00 - 0.03 ng/mL [facility] Specimen Blood Narrative Performed At Troponin I (TnI) levels must be interpreted [facility] in the context of the presenting symptoms and the clinical findings. Elevated TnI levels indicate myocardial damage, but are not specific for ischemic heart disease. Elevated TnI levels are seen in patients with other cardiac conditions (including myocarditis and congestive heart failure), and slight TnI elevations occur in patients with other conditions, including sepsis, renal failure, acidosis, acute neurological disease, and persistent tachyarrhythmia. Performing Organization Address [facility] Centercode Phone Number [address] [address] [place] ECHOCARDIOGRAM REPORT - SCAN (08/11/2018 9:11 PM CDT) Narrative Performed At Procalcitonin (08/11/2018 8:46 PM CDT) Procalcitonin <0.05 <0.05 ng/mL [facility] Specimen Blood Narrative Performed At SEPSIS RISK (ng/mL) [facility] Low:0.05-0.50 Intermediate: 0.51-2.00 High: >=2.01 Performing Organization Address City/[facility] Centercode Phone Number [facility] [address] [place] [address] CENTER ECG 12 lead (08/11/2018 3:42 PM CDT)Only the most recent of2 resultswithin the time period is included. Specimen Narrative Performed At Ventricular Rate 71 BPM GE WUT Atrial Rate 71 BPM P-R Interval 140 ms QRS Duration 78 ms Q-T Interval 326 ms QTC Calculation(Bazett) 354 ms P Keasbey 1 degrees R Keasbey 31 degrees T Keasbey 124 degrees Normal sinus rhythm Nonspecific ST and T wave abnormality Abnormal ECG When compared with ECG of 10-AUG-2018 16:46, No significant change was found Confirmed by Nicole OROZCO MICHAEL ([id number]) on 08/12/2018 8:00:23 AM Procedure Note Interface, External Ris In - 08/12/2018 8:00 AM CDT Ventricular Rate 71 BPM Atrial Rate 71 BPM P-R Interval 140 ms QRS Duration 78 ms Q-T Interval 326 ms QTC Calculation(Bazett) 354 ms P Keasbey 1 degrees R Keasbey 31 degrees T Ke[place]bey 124 degrees Normal sinus rhythm Nonspecific ST and T wave abnormality Abnormal ECG When compared with ECG of 10-AUG-2018 16:46, No significant change was found Confirmed by Nicole OROZCO MICHAEL ([id number]) on 08/12/2018 8:00:23 AM Performing Organization Address City/[facility] Centercowv Phone Number [employer] XR abdomen / KUB 1 view (08/11/2018 10:50 AM CDT) Specimen Narrative Performed At FINAL REPORT [facility] CLINICAL HISTORY: abdominal pain TECHNIQUE: Supine abdomen COMPARISON: CT 03/21/2016 IMPRESSION: The bowel gas pattern is nonspecific. Free air and air-fluid levels are not seen but cannot be definitively excluded on the supine view. Right upper quadrant surgical clips are again seen. Right lower abdominal hernia repair mesh is again seen. Signed: Kne Bunn MD Report Verified Date/Time:08/11/2018 11:42:12 Reading Location: [facility] Radiology Reading Room Procedure Note Interface, External Ris In - 08/11/2018 11:44 AM CDT FINAL REPORT CLINICAL HISTORY: abdominal pain TECHNIQUE: Supine abdomen COMPARISON: CT 03/21/2016 IMPRESSION: The bowel gas pattern is nonspecific. Free air and air-fluid levels are not seen but cannot be definitively excluded on the supine view. Right upper quadrant surgical clips are again seen. Right lower abdominal hernia repair mesh is again seen. Signed: Ken Bunn MD Report Verified Date/Time: 08/11/2018 11:42:12 Reading Location: [facility] Radiology Reading Room Performing Organization Address City/[facility] Phone Number GE RIS POCT-HEMATOCRIT (08/11/2018 9:36 AM CDT) POC-Hematocrit 34 (L)Comment: TESTED AT 36 - 45 % [address] [address] Specimen Blood Performing Organization Address [facility] Phone Number [address] [phone] [place] POCT-HEMOGLOBIN (08/11/2018 9:36 AM CDT) POC-Hemoglobin 11.6 (L)Comment: TESTED AT 12.0 - 15.0 g/dL [address] [place] [address]EMFFPL AT [address] [address] Specimen Blood Performing Organization Address [facility] Phone Number [address] [address] [place] POCT-GLUCOSE (08/11/2018 9:36 AM CDT) POC-Glucose 165 (H)Comment: TESTED AT 70 - 110 mg/dL [address] [address] Specimen Blood Performing Organization Address [facility] Phone Number [address] [address] [phone] [place] POC-Sodium (08/11/2018 9:36 AM CDT) POC-Sodium 142Comment: TESTED AT [facility] 135 - 148 meq/L [address] [address] Specimen Blood Performing Organization Address [facility] Phone Number [address] [address] [phone] [place] POC-Potassium (08/11/2018 9:36 AM CDT) POC-Potassium 3.6Comment: TESTED AT [facility] 3.6 - 5.5 meq/L [address] [address] Specimen Blood Performing Organization Address [facility] Phone Number [address] [address] [place] POC-Calcium ionized (08/11/2018 9:36 AM CDT) POC-Calcium Ionized 1.50 (H)Comment: 1.12 - 1.27 mmol/L [facility] TESTED AT [address] [address] Specimen Blood Performing Organization Address [facility] Phone Number [address] [address] [place] POC-Blood gases, venous (08/11/2018 9:36 AM CDT) Temp. Celsius-POC 36.9 [facility] FIO2-POC 28Comment: TESTED AT [address] [address] pH, Venous-POC 7.344 7.320 - 7.420 [facility] PCO2, Venous-POC 48.8 41.0 - 51.[address] [facility] PO2, Venous-POC 36.0 25.0 - 40.0 mm Hg [facility] SO2, Venous-POC 66.0 40.0 - 70.0 % [facility] HCO3, Venous-POC 26.6 21.0 - 29.0 meq/L [facility] BE, Venous-POC 1.0 -2.0 - 3.0 meq/L [facility] Specimen Blood Performing Organization Address [facility] Phone Number [address] [address] CENTER POC-Lactic Acid, Venous (08/11/2018 9:32 AM CDT) POC-Lactic Acid, Venous 0.9Comment: TESTED AT 0.9 - 1.7 mmol/L [place] [address] Specimen Blood Performing Organization Address [facility] Phone Number [address] [address] [place] Urinalysis w/Microscopic + Reflex to Culture (08/11/2018 7:48 AM CDT) Color, UA Yellow [facility] Clarity, UA Clear [facility] Specific [place], UA 1.012 1.001 - 1.035 [facility] pH, UA 6.0 5.0 - 8.0 [facility] Protein, UA 10 mg/dL (A) Negative [facility] Glucose, UA 50 mg/dL (A) Negative [facility] Ketones, UA 20 mg/dL (A) Negative [facility] Bilirubin, UA Negative Negative [facility] Blood, UA Moderate (A) Negative [facility] Nitrite, UA Negative Negative [facility] Leukocytes, UA Negative Negative [facility] Urobilinogen, UA 0.2 0.2 - 1.0 mg/dL [facility] RBC, UA 105 /HPF [facility] WBC, UA 2 /HPF [facility] Specimen Source [facility] Specimen Urine Performing Organization Address City/State/Zipcode Phone Number [address] [phone] [place] Blood Culture - Routine (Right Venipuncture) (08/11/2018 12:25 AM CDT)Only the most recent of2 resultswithin the time period is included. Result No growth in 5 days [facility] Specimen Blood Performing Organization Address City/State/Zipcode Phone Number [address] [address] [place] Lipase (08/11/2018 12:24 AM CDT) Lipase 23 8 - 78 U/L [facility] Specimen Blood Performing Organization Address City/[facility]/Zipcode Phone Number [address] [phone] [place] XR chest 1 view portable / bedside (08/10/2018 9:04 PM CDT) Specimen Narrative Performed At FINAL REPORT GE RIS INDICATION: picc TECHNIQUE: Chest radiograph, single view, portable technique. FINDINGS / IMPRESSION: There is a right PICC line that terminates in the low SVC. Heart shadow is enlarged. There is a right perihilar opacity or mass. No pneumothorax or pleural effusion is demonstrated. Osseous structures unremarkable. Signed: Paulie Ndiaye MD Report Verified Date/Time:08/10/2018 23:47:27 Reading Location: [id number] Consult Reading Room Procedure Note Interface, External Ris In - 08/10/2018 11:49 PM CDT FINAL REPORT INDICATION: picc TECHNIQUE: Chest radiograph, single view, portable technique. FINDINGS / IMPRESSION: There is a right PICC line that terminates in the low SVC. Heart shadow is enlarged. There is a right perihilar opacity or mass. No pneumothorax or pleural effusion is demonstrated. Osseous structures unremarkable. Signed: Paulie Ndiaye MD Report Verified Date/Time: 08/10/2018 23:47:27 Reading Location: [address] Consult Reading Room Performing Organization Address [facility] Phone Number [facility] TSH/Free T4 If Indicated (08/10/2018 7:00 PM CDT) TSH 0.30 (L) 0.35 - 4.94 uIU/mL [facility] Specimen Blood Performing Organization Address [facility] Phone Number [address] [address] [phone] CENTER T4, free (08/10/2018 7:00 PM CDT) Free T4 0.86 0.70 - 1.48 ng/dL [facility] Specimen Blood Performing Organization Address [facility] Phone Number [address] [address] C[place] Ammonia (08/10/2018 7:00 PM CDT) Ammonia 29 18 - 72 mol/L [facility] Specimen Blood Performing Organization Address [facility] Phone Number [address] [address] [phone] CENTER PT/aPTT (08/10/2018 5:44 PM CDT) Protime 14.8 (H) 11.9 - 14.2 seconds [facility] INR 1.2 <=5.9 [facility] PTT 30.3 22.5 - 36.0 seconds [facility] Specimen Blood Narrative Performed At Effective 07/15/2018: PT Reference Range [facility] Change New: 11.9-14.2Previous: 11.7-14.7 RECOMMENDED COUMADIN/WARFARIN INR THERAPY RANGES STANDARD DOSE: 2.0-3.0Includes: PROPHYLAXIS for venous thrombosis, systemic embolization; TREATMENT for venous thrombosis and/or pulmonary embolus. HIGH RISK: Target INR is 2.5-3.5 for patients wiht mechanical heart valves. Performing Organization Address City/State/Zipcode Phone Number [address] [address] [phone] CENTER Hemoglobin A1c (08/10/2018 5:44 PM CDT) Hemoglobin A1C 7.5 (H) 4.3 - 6.1 % [facility] Specimen Blood Performing Organization Address City/[facility]/Zipcode Phone Number [address] [address] C[place] B-type Natriuretic Factor (BNP) (08/10/2018 5:43 PM CDT) BNP 876 (H) 0 - 100 pg/mL [facility] Specimen Blood Performing Organization Address [facility]/Zipcode Phone Number [address] [address] CENTER 2D Echo W/Doppler(CW/PW/Color) (08/10/2018 4:59 PM CDT) Ejection Fraction [facility] Specimen Narrative Performed At Transthoracic Echocardiography Report (TTE) [facility] Demographics Patient Name JUDY CALHOUN Date of Study 08/10/2018 [id number] GenderFemale Visit Number [id number] RaceUnknown [id number] m Number [id number] Number Date of Birth1940 Referring Physician Shira Person Age78 year(s) Engagement Mgr Charlene Vega [facility] Karan Phillip MD [facility] Physician Procedure Type of Study TTE procedure:2DECHO W DOPPLER(CW/PW/COLOR) (Routine) Indications:Sustained or non sustained Afib, SVT or VT. Clinical History AFIB;CAD;DM;HLD;HTN;L CATH/PCI. HGB 9.3 HCT 26.9 % Height: 59 inches Weight: 81.19 kg (179 lbs) BSA: 1.76 m^2 BMI: 36.15 kg/m^2 HR: 80 bpm BP: 136/95 mmHg Summary The left ventricle is chamber size (by vol index) is normal (female - LVED vol - 29-61ml/m2). LV septal thickness is mildly increased (1.2-1.4cm). LV posterior wall thickness is normal (0.6-1.1cm) . All of the LV segments are hyperkinetic . Estimated LVEF by qualitative assessment is increased (>70%) . Grade 2 diastolic dysfunction (moderately increased LA pressure). A small pericardial effusion is present . An echo lucent space is noted consistent with prominent pericardial fat pad. Previous Study No prior studies available for comparison. Signature Findings Technical Quality: Technically difficult exam. Left Ventricle The left ventricle is chamber size (by vol index) is normal (female - LVED vol - 29-61ml/m2). LV se ptal thickness is mildly increased (1.2-1.4cm). LV posterior wall thickness is normal (0.6-1.1cm) . Al l of the LV segments are hyperkinetic . Global LV sy stolic function hyperdynamic . Estimated LVEF by qu alitative assessment is increased (>70%) . Grade 2 diastolic dysfunction (moderately increased LA pr essure). Left AtriumLA size is normal (16-34 ml/m2) . Right VentricleThe right ventricular chamber size and systolic fu nction are within normal limits. Right Atrium RA size is normal. Aortic Valve Mild AoV cusp thickening. Mitral Valve Mild MV leaflet thickening. Mi ld mitral regurgitation. Tricuspid ValveTV structure is normal. A trace of tricuspid regurgitation. Pulmonic Valve Normal PV structure and function by limited views an d Doppler. AortaAortic root size (SInus of Valsalva diameter) is no rmal . PericardiumA small pericardial effusion is present . An echo lucent space is noted consistent with pr ominent pericardial fat pad. IVC/SVC/PA/PV/PleuralThe estimated RA pressure by IVC dynamics >20mmHg . Th e inferior vena cava is not visualized. Chambers/Structures Left Atrium LA Volume: 39.1 mlLA Area: 16.18 cm^2 LA Vol. Index: 22 ml/m^2 Left Ventricle LVIDd: 4.69 cm LV Septum Diastolic: 1.33 cm LV PW Diastolic: 1.14 cm LVEDV Milligan's:78.12 ml LVEDVI: 44 ml/m^2 LVOT Diameter: 1.77 cm Aorta Ao Root S of Elle.: 2.85 cm Doppler/Quantitative Measurements Mitral Valve MV Peak E-Wave: 1.28 m/sMV Peak A-Wave: 1.06 m/s E/A Ratio: 1.21 Peak Gradient: 6.52 mmHg Deceleration Time: 126 msec MV Tyrell. Peak: Tissue Doppler E' Lateral Velocity: 0.08 m/s E/E': 16.06 Aortic Valve Peak Velocity: 2.03 m/s Mean Velocity: 1.35 m/s Peak Gradient: 16.56 mmHg Mean Gradient: 8.4 mmHg AV Area (continuity): 1.77 cm^2 AV VTI: 37.42 cm AV DVI: 0.72 LVOT Peak Velocity: 1.27 m/s Peak Gradient: 6.41 mmHg Mean Velocity: 0.94 m/s Mean Gradient: 3.84 mmHg LVOT Diameter: 1.77 cmLVOT VTI: 26.98 cm LVOT Area: 2.46 cm^2LVOT SV:66.35 ml LVOT CO: 5.31 l/min LVOT CI: 3.02 l/min/m^2 Procedure Note Interface, External Ris In - 08/11/2018 11:15 AM CDT Transthoracic Echocardiography Report (TTE) Demographics Patient Name JUDY CALHOUN Date of Study 08/10/2018 Gender Female Visit Number [id number] Race Unknown Room Number 722 Number Date of 1940 Referring Physician Shira Person Age 78 year(s) Engagement Mgr Charlene Vega [facility] [place] Supervisor Ivonne Brown, Interpreting Stevie Santoro MD [facility] Physician Procedure Type of Study TTE procedure:2DECHO W DOPPLER(CW/PW/COLOR) (Routine) Indications:Sustained or non sustained Afib, SVT or VT. Clinical History AFIB;CAD;DM;HLD;HTN;L CATH/PCI. HGB 9.3 HCT 26.9 % Height: 59 inches Weight: 81.19 kg (179 lbs) BSA: 1.76 m^2 BMI: 36.15 kg/m^2 HR: 80 bpm BP: 136/95 mmHg Summary The left ventricle is chamber size (by vol index) is normal (female - LVED vol - 29-61ml/m2). LV septal thickness is mildly increased (1.2-1.4cm). LV posterior wall thickness is normal (0.6-1.1cm) . All of the LV segments are hyperkinetic . Estimated LVEF by qualitative assessment is increased (>70%) . Grade 2 diastolic dysfunction (moderately increased LA pressure). A small pericardial effusion is present . An echo lucent space is noted consistent with prominent pericardial fat pad. Previous Study No prior studies available for comparison. Signature Findings Technical Quality: Technically difficult exam. Left Ventricle The left ventricle is chamber size (by vol index) is normal (female - LVED vol - 29-61ml/m2). LV septal thickness is mildly increased (1.2-1.4cm). LV posterior wall thickness is normal (0.6-1.1cm) . All of the LV segments are hyperkinetic . Global LV systolic function hyperdynamic . Estimated LVEF by qualitative assessment is increased (>70%) . Grade 2 diastolic dysfunction (moderately increased LA pressure). Left Atrium LA size is normal (16-34 ml/m2) . Right Ventricle The right ventricular chamber size and systolic function are within normal limits. Right Atrium RA size is normal. Aortic Valve Mild AoV cusp thickening. Mitral Valve Mild MV leaflet thickening. Mild mitral regurgitation. Tricuspid Valve TV structure is normal. A trace of tricuspid regurgitation. Pulmonic Valve Normal PV structure and function by limited views and Doppler. Aorta Aortic root size (SInus of Valsalva diameter) is normal . Pericardium A small pericardial effusion is present . An echo lucent space is noted consistent with prominent pericardial fat pad. IVC/SVC/PA/PV/Pleural The estimated RA pressure by IVC dynamics >20mmHg . The inferior vena cava is not visualized. Chambers/Structures Left Atrium LA Volume: 39.1 ml LA Area: 16.18 cm^2 LA Vol. Index: 22 ml/m^2 Left Ventricle LVIDd: 4.69 cm LV Septum Diastolic: 1.33 cm LV PW Diastolic: 1.14 cm LVEDV Milligan's:78.12 ml LVEDVI: 44 ml/m^2 LVOT Diameter: 1.77 cm Aorta Ao Root S of Elle.: 2.85 cm Doppler/Quantitative Measurements Mitral Valve MV Peak E-Wave: 1.28 m/s MV Peak A-Wave: 1.06 m/s E/A Ratio: 1.21 Peak Gradient: 6.52 mmHg Deceleration Time: 126 msec MV Tyrell. Peak: Tissue Doppler E' Lateral Velocity: 0.08 m/s E/E': 16.06 Aortic Valve Peak Velocity: 2.03 m/s Mean Velocity: 1.35 m/s Peak Gradient: 16.56 mmHg Mean Gradient: 8.4 mmHg AV Area (continuity): 1.77 cm^2 AV VTI: 37.42 cm AV DVI: 0.72 LVOT Peak Velocity: 1.27 m/s Peak Gradient: 6.41 mmHg Mean Velocity: 0.94 m/s Mean Gradient: 3.84 mmHg LVOT Diameter: 1.77 cm LVOT VTI: 26.98 cm LVOT Area: 2.46 cm^2 LVOT SV:66.35 ml LVOT CO: 5.31 l/min LVOT CI: 3.02 l/min/m^2 Performing Organization Address City/State/Zipcode Phone Number [facility] CPACS after 09/06/2017 Insurance Payer Benefit Plan / Group Subscriber ID Type Phone Address [employer] xxxxxxxx Maps Contracted Advance Directives For more information, please contact:[address] [phone] Code Status Date Activated Date Inactivated Comments Full Code 08/10/2018 2:16 PM 08/18/2018 7:36 PM This code status was determined by: Patient Full Code 03/21/2016 6:40 PM 03/26/2016 4:41 PM This code status was determined by: Patient
--- OUTSIDE RECORDS SUMMARY | 2018-09-07 18:28 | XMS REPORT ---
:1940 [facility] Address [address] [place] [address] Care Team Providers Name Role Phone RYAN REHMAN Unavailable Unavailable Problems This patient has no known problems. Allergies, Adverse Reactions, Alerts This patient has no known allergies or adverse reactions. Medications This patient has no known medications. Results Test Description Test Time Test Comments Text Results Atomic Results Result Comments U/S, RENAL 2018-08-18 Reason for FINAL REPORT PATIENT ID: WITH DOPPLER 16:58:00 exam:->hypertensionShould this [id number] Renal be performed at the ultrasound and Duplex bedside?->No Doppler ultrasound of kidneys dated 08/18/2018 Comment: Real-time transabdominal renal ultrasound was performed.Right kidney measures 9.6 x 4.6 x 4.3 [...] 1. Echogenic kidneys suggestive of renal parenchymal disease.2. Abnormal Doppler of the kidneys with elevated resistive indicis. Signed: Baldemar Haley MDReport Verified Date/Time: 08/18/2018 16:58:13 Reading Location: [address] Radiology Reading Room UE EXAM 2018-08-18 Surgical Pathology Report 14:09:00 Case: [id number] Authorizing Provider: Roddy Bernard Collected: 08/15/2018 1652 Ordering Location: [address] Received: 08/17/2018 0800 Service Pathologist: Joanne Gu MD Specimens: A) - Duodenal, ULCERS BX B) - Biopsy, Gastric, BX This final report is issued to give the result of immunohistochemical study for Helicobacter pylori on specimen B:A. DUODENUM, ULCERS, ENDOSCOPIC BIOPSY: - SEVERE ULCERATION - NO GRANULOMAS OR VIRAL INCLUSIONS SEEN - NO DYSPLASIA OR MALIGNANCY SEENB. STOMACH, ENDOSCOPIC BIOPSY: - ANTRAL TYPE GASTRIC MUCOSA WITH CHRONIC INACTIVE GASTRITIS - OXYNTIC MUCOSA WITH NO PATHOLOGIC ALTERATION - NO DEFINITE HELICOBACTER PYLORI-LIKE ORGANISMS SEEN ON WARTHIN-STARRY STAIN - IMMUNOHISTOCHEMICAL STUDY FOR HELICOBACTER PYLORI IS NEGATIVE - NO INTESTINAL METAPLASIA,DYSPLASIA OR MALIGNANCY NOTED Signing Pathologist Direct Phone Line: [phone] y signed by Joanne Gu MD on 08/18/2018 at 2:09 PMPreliminary result electronically signed by Joanne Gu MD on 08/17/2018 at 6:32 [id number] X 2; [id number]; [id number] bile duct stonesA. Duodenal ulcers biopsy; B. Biopsy, gastric biopsyThe case is received in two parts both labeled with the patient's name, Judy Calhoun, date of 1940 and accession number [id number] which corresponds to accompanying requisition page labeled with the same name and accession number. Part A is received in formalin labeled [...] in toto following filtration in cassette B1. RP/plPERFORMEDThe interpretation of this case included the use of immunohistochemistry or special stains.WARTHIN-STARRY; HELICOBACTER PYLORIControl Slides Examined: In-house known positive controls were evaluated along with the test tissue. These control slides run alongside of the patients sample show appropriate staining. Internal positive and negative controls when available are evaluated Immunohistochemistry technical testing was performed at [facility], Pathology Laboratory where it was developed and its performance characteristics were determined. It has not been cleared or approved by the U.S. Food and Drug Administration. The FDA has determined that such clearance or approval is not necessary. The test is used for clinical purposes. It should not be regarded as investigational or for research. This laboratory is certified under the Clinical Laboratory Improvement Amendments of 1988 (CLIA-88) as qualified to perform high complexity clinical laboratory testing. POCT-GLUCOSE METER 2018-08-18 07:43:00 Test Item Value Reference Range Comments POC-GLUCOSE METER (BEAKER) (test 141 mg/dL 70-[address] [facility] [address] [facility] fkvo=1342) [facility] [address] [id number] 06:53:00 Test Item Value Reference Range Comments MAGNESIUM (BEAKER) (test kunf=666) 1.9 mg/dL 1.6-2.6 BASIC METABOLIC [id number] 06:53:00 Test Item Value Reference Range Comments SODIUM (BEAKER) (test 134 meq/L 136-145 oxeq=001) POTASSIUM (BEAKER) (test 4.2 meq/L 3.5-5.1 yicx=574) CHLORIDE (BEAKER) (test 103 meq/L 98-107 jovl=002) CO2 (BEAKER) (test 28 meq/L 22-29 zfva=457) BLOOD UREA NITROGEN 12 mg/dL 7-21 (BEAKER) (test btqk=416) CREATININE (BEAKER) (test 0.74 mg/dL 0.57-1.25 moqb=208) GLUCOSE RANDOM (BEAKER) 124 mg/dL 70-105 (test xcgd=251) CALCIUM (BEAKER) (test 9.9 mg/dL 8.4-10.2 beef=633) EGFR (BEAKER) (test 76 mL/min/1.73 sq m ESTIMATED GFR IS NOT jfms=2711) ACCURATE CREATININE CLEARANCE IN PREDICTING GLOMERULAR FILTRATION RATE. ESTIMATED GFR IS NOT APPLICABLE FOR DIALYSIS PATIENTS. HEPATIC FUNCTION [id number] 06:53:00 Test Item Value Reference Range Comments TOTAL PROTEIN (BEAKER) (test itoy=817) 5.4 gm/dL 6.0-8.3 ALBUMIN (BEAKER) (test yiuy=7060) 2.9 g/dL 3.5-5.0 BILIRUBIN TOTAL (BEAKER) (test ihgb=823) 0.4 mg/dL 0.2-1.2 BILIRUBIN DIRECT (BEAKER) (test jixv=629) 0.2 mg/dL 0.1-0.5 ALKALINE PHOSPHATASE (BEAKER) (test jqmj=048) 73 U/L 40-150 AST (SGOT) (BEAKER) (test acvv=045) 20 U/L 5-34 ALT (SGPT) (BEAKER) (test ouwl=777) 17 U/L 6-55 CBC (HEMOGRAM ONLY)2018-08-18 06:22:00 Test Item Value Reference Range Comments WHITE BLOOD CELL COUNT (BEAKER) (test xvlb=675) 11.7 K/ L 3.5-10.5 RED BLOOD CELL COUNT (BEAKER) (test shiy=278) 3.29 M/ L 3.93-5.22 HEMOGLOBIN (BEAKER) (test jvnc=051) 10.4 GM/DL 11.2-15.7 HEMATOCRIT (BEAKER) (test rtbi=372) 31.8 % 34.1-44.9 MEAN CORPUSCULAR VOLUME (BEAKER) (test ozof=236) 96.7 fL 79.4-94.8 MEAN CORPUSCULAR HEMOGLOBIN (BEAKER) (test 31.6 pg 25.6-32.2 sjxp=399) MEAN CORPUSCULAR HEMOGLOBIN CONC (BEAKER) (test 32.7 GM/DL 32.2-35.5 biyp=022) RED CELL DISTRIBUTION WIDTH (BEAKER) (test 16.6 % 11.7-14.4 qxlo=730) PLATELET COUNT (BEAKER) (test kfqs=645) 175 K/CU MM 150-450 MEAN PLATELET VOLUME (BEAKER) (test roii=199) 11.4 fL 9.4-12.3 NUCLEATED RED BLOOD CELLS (BEAKER) (test 0 /100 WBC 0-0 gwou=426) POCT-GLUCOSE [id number] 23:08:00 Test Item Value Reference Range Comments POC-GLUCOSE METER (BEAKER) 163 mg/dL 70-110 TESTED AT [place] [id number] [facility] (test cayu=3893) [place] [address] POCT-GLUCOSE [id number] 17:26:00 Test Item Value Reference Range Comments POC-GLUCOSE METER (BEAKER) 131 mg/dL 70-110 TESTED AT [address] (test jqqs=4932) [place] [address] PET, CARDIAC PERFUSION MULTIPLE STUDIES, REST AND [id number] 15:22: 00Reason for exam:->Exclude ischemiaFINAL REPORT PROCEDURE: MYOCARDIAL PERFUSION PET IMAGING (Rest/Stress)CPT CODE: 37228 INDICATION: Define extent of known CAD, chest discomfort CARDIOVASCULAR PROFILE: CAD History:Previous coronary stentSymptoms: Chest discomfortRisk Factors: Hypertension, diabetes, hyperlipidemia, obesityBMI: 33Medications: Aspirin, atorvastatin, losartan, metoprolol, amlodipine STRESS PROTOCOL:Pharmacologic stress was achieved with a 10-second intravenous infusion of regadenoson 0.4 mg. The radiopharmaceutical was administered 30 seconds after the start of the regadenoson infusion. IMAGING PROTOCOL:Limited low-dose CT imaging was performed for attenuation correction. 40.0 mCi of Rb-82 chloride was injected intravenously at rest, and gated PET images were obtained. Then, 40.0 mCi of Rb- 82 chloride was injected intravenously at peak stress, and gated PET images were obtained. REST FINDINGS:HR: 54/minBP: 145/48 mmHgPrelim. EKG: Sinus bradycardia, nonspecific ST and T wave changes.Perfusion:Normal.Wall Motion: Normal (LVEF 83%).LV Volume: Normal.RV Volume: Normal. STRESS FINDINGS:HR: 71/ min (50% of MPHR)BP: 104/33 mmHgPrelim. EKG: Less than [address] depressions in V3 and V4.Symptoms: None (treatment not required).Perfusion: Normal.Wall Motion : Normal (LVEF 83%).LV Volume: Not significantly changed from rest. IMPRESSION: 1. Normal study.2. Normal myocardial perfusion. 3. Normal LVEF of 83%, which does not deteriorate with pharmacologic stress.4. Normal extracardiac tracer distribution.5. There is no prior study for comparison. Signed: Howard Bourgeois MDReport Verified Date/Time: 08/17/2018 15:22:38 Reading Location: [address] Reading Room POCT-GLUCOSE [id number] 13:27:00 Test Item Value Reference Range Comments POC-GLUCOSE METER (BEAKER) 130 mg/dL 70-110 TESTED AT [address] (test vbcf=5385) [facility] [address] CBC (HEMOGRAM ONLY)2018-08-17 07:52:00 Test Item Value Reference Range Comments WHITE BLOOD CELL COUNT (BEAKER) (test lhxy=742) 10.6 K/ L 3.5-10.5 RED BLOOD CELL COUNT (BEAKER) (test qqyf=478) 3.45 M/ L 3.93-5.22 HEMOGLOBIN (BEAKER) (test yxsz=309) 10.8 GM/DL 11.2-15.7 HEMATOCRIT (BEAKER) (test bico=674) 32.9 % 34.1-44.9 MEAN CORPUSCULAR VOLUME (BEAKER) (test thgu=967) 95.4 fL 79.4-94.8 MEAN CORPUSCULAR HEMOGLOBIN (BEAKER) (test 31.3 pg 25.6-32.2 ksbd=654) MEAN CORPUSCULAR HEMOGLOBIN CONC (BEAKER) (test 32.8 GM/DL 32.2-35.5 gnod=118) RED CELL DISTRIBUTION WIDTH (BEAKER) (test 16.1 % 11.7-14.4 yxkf=935) PLATELET COUNT (BEAKER) (test tjeh=792) 177 K/CU MM 150-450 MEAN PLATELET VOLUME (BEAKER) (test ntac=702) 11.2 fL 9.4-12.3 NUCLEATED RED BLOOD CELLS (BEAKER) (test 0 /100 WBC 0-0 eian=319) [id number] 07:43:00 Test Item Value Reference Range Comments MAGNESIUM (BEAKER) (test xoeb=939) 1.6 mg/dL 1.6-2.6 BASIC METABOLIC [id number] 07:43:00 Test Item Value Reference Range Comments SODIUM (BEAKER) (test 136 meq/L 136-145 egxd=392) POTASSIUM (BEAKER) (test 3.6 meq/L 3.5-5.1 ctqx=008) CHLORIDE (BEAKER) (test 102 meq/L 98-107 bled=260) CO2 (BEAKER) (test 29 meq/L 22-29 sgqt=576) BLOOD UREA NITROGEN 10 mg/dL 7-21 (BEAKER) (test tgbj=892) CREATININE (BEAKER) (test 0.74 mg/dL 0.57-1.25 umrs=486) GLUCOSE RANDOM (BEAKER) 134 mg/dL 70-105 (test izsv=915) CALCIUM (BEAKER) (test 9.9 mg/dL 8.4-10.2 stax=112) EGFR (BEAKER) (test 76 mL/min/1.73 sq m ESTIMATED GFR IS NOT lssp=4383) ACCURATE CREATININE CLEARANCE IN PREDICTING GLOMERULAR FILTRATION RATE. ESTIMATED GFR IS NOT APPLICABLE FOR DIALYSIS PATIENTS. HEPATIC FUNCTION [id number] 07:43:00 Test Item Value Reference Range Comments TOTAL PROTEIN (BEAKER) (test sgcj=562) 5.2 gm/dL 6.0-8.3 ALBUMIN (BEAKER) (test bjrn=3217) 2.8 g/dL 3.5-5.0 BILIRUBIN TOTAL (BEAKER) (test qkxf=677) 0.5 mg/dL 0.2-1.2 BILIRUBIN DIRECT (BEAKER) (test jbiu=774) 0.3 mg/dL 0.1-0.5 ALKALINE PHOSPHATASE (BEAKER) (test biar=208) 76 U/L 40-150 AST (SGOT) (BEAKER) (test tglx=430) 21 U/L 5-34 ALT (SGPT) (BEAKER) (test pvet=639) 17 U/L 6-55 POCT-GLUCOSE [id number] 07:24:00 Test Item Value Reference Range Comments POC-GLUCOSE METER (BEAKER) 144 mg/dL 70-[address] [facility] [address] [facility] (test ycld=1525) [facility] [address] POCT-GLUCOSE [id number] 23:39:00 Test Item Value Reference Range Comments POC-GLUCOSE METER (BEAKER) 159 mg/dL 70-110 TESTED AT [address] (test szno=6914) [facility] [address] POCT-GLUCOSE [id number] 17:20:00 Test Item Value Reference Range Comments POC-GLUCOSE METER (BEAKER) 168 mg/dL 70-110 TESTED AT [address] (test wbui=0701) [facility] [address] COMPREHENSIVE METABOLIC [id number] 13:35:00 Test Item Value Reference Range Comments TOTAL PROTEIN (BEAKER) 5.4 gm/dL 6.0-8.3 (test xvck=916) ALBUMIN (BEAKER) (test 2.9 g/dL 3.5-5.0 nqxq=7619) ALKALINE PHOSPHATASE 86 U/L 40-150 (BEAKER) (test iayd=059) BILIRUBIN TOTAL (BEAKER) 0.4 mg/dL 0.2-1.2 (test iokt=779) SODIUM (BEAKER) (test 135 meq/L 136-145 cwsb=089) POTASSIUM (BEAKER) (test 3.7 meq/L 3.5-5.1 ypoi=505) CHLORIDE (BEAKER) (test 102 meq/L 98-107 xasn=595) CO2 (BEAKER) (test 28 meq/L 22-29 jzsa=508) BLOOD UREA NITROGEN 10 mg/dL 7-21 (BEAKER) (test yvcu=387) CREATININE (BEAKER) (test 0.83 mg/dL 0.57-1.25 zcpy=929) GLUCOSE RANDOM (BEAKER) 150 mg/dL 70-105 (test jybf=521) CALCIUM (BEAKER) (test 10.0 mg/dL 8.4-10.2 tynt=041) AST (SGOT) (BEAKER) (test 25 U/L 5-34 txkb=285) ALT (SGPT) (BEAKER) (test 23 U/L 6-55 zbha=625) EGFR (BEAKER) (test 66 mL/min/1.73 sq m ESTIMATED GFR IS NOT cyxm=1419) ACCURATE CREATININE CLEARANCE IN PREDICTING GLOMERULAR FILTRATION RATE. ESTIMATED GFR IS NOT APPLICABLE FOR DIALYSIS PATIENTS. CBC W/PLT COUNT & AUTO [id number] 13:14:00 Test Item Value Reference Range Comments WHITE BLOOD CELL COUNT (BEAKER) (test frwb=589) 12.9 K/ L 3.5-10.5 RED BLOOD CELL COUNT (BEAKER) (test clrw=451) 3.74 M/ L 3.93-5.22 HEMOGLOBIN (BEAKER) (test kwls=765) 11.6 GM/DL 11.2-15.7 HEMATOCRIT (BEAKER) (test sxel=385) 35.0 % 34.1-44.9 MEAN CORPUSCULAR VOLUME (BEAKER) (test lkjz=716) 93.6 fL 79.4-94.8 MEAN CORPUSCULAR HEMOGLOBIN (BEAKER) (test 31.0 pg 25.6-32.2 kgdu=520) MEAN CORPUSCULAR HEMOGLOBIN CONC (BEAKER) (test 33.1 GM/DL 32.2-35.5 qsqg=346) RED CELL DISTRIBUTION WIDTH (BEAKER) (test 16.0 % 11.7-14.4 qckd=429) PLATELET COUNT (BEAKER) (test pvaw=433) 165 K/CU MM 150-450 MEAN PLATELET VOLUME (BEAKER) (test rhzp=100) 10.1 fL 9.4-12.3 NUCLEATED RED BLOOD CELLS (BEAKER) (test 0 /100 WBC 0-0 ldxj=185) NEUTROPHILS RELATIVE PERCENT (BEAKER) (test 84 % tioa=082) LYMPHOCYTES RELATIVE PERCENT (BEAKER) (test 7 % rciv=498) MONOCYTES RELATIVE PERCENT (BEAKER) (test 7 % ifmd=186) EOSINOPHILS RELATIVE PERCENT (BEAKER) (test 2 % wsbn=643) BASOPHILS RELATIVE PERCENT (BEAKER) (test 0 % jitp=681) NEUTROPHILS ABSOLUTE COUNT (BEAKER) (test 10.89 K/ L 1.56-6.13 xqdb=644) LYMPHOCYTES ABSOLUTE COUNT (BEAKER) (test 0.90 K/ L 1.18-3.74 yeaw=075) MONOCYTES ABSOLUTE COUNT (BEAKER) (test 0.84 K/ L 0.24-0.36 rivc=222) EOSINOPHILS ABSOLUTE COUNT (BEAKER) (test 0.20 K/ L 0.04-0.36 eegb=334) BASOPHILS ABSOLUTE COUNT (BEAKER) (test 0.05 K/ L 0.01-0.08 mtxa=174) IMMATURE GRANULOCYTES-RELATIVE PERCENT (BEAKER) 1 % 0-1 (test hgnd=4058) POCT-GLUCOSE [id number] 12:12:00 Test Item Value Reference Range Comments POC-GLUCOSE METER (BEAKER) 154 mg/dL 70-110 TESTED AT [address] (test jycu=8949) [place] [address] BLOOD [id number] 08:00:00 Test Item Value Reference Range Comments CULTURE (BEAKER) (test gwur=5323) No growth in 5 days BLOOD [id number] 08:00:00 Test Item Value Reference Range Comments CULTURE (BEAKER) (test syvi=4287) No growth in 5 days POCT-GLUCOSE [id number] 07:45:00 Test Item Value Reference Range Comments POC-GLUCOSE METER (BEAKER) 115 mg/dL 70-110 TESTED AT [address] (test ofdm=6958) [place] [address] POCT-GLUCOSE [id number] 23:02:00 Test Item Value Reference Range Comments POC-GLUCOSE METER (BEAKER) 90 mg/dL 70-110 TESTED AT [address] (test ofmm=6592) [facility] [address] [place], [id number] 17:37:00INTRA OP IMAGINGReason for exam:->CBD STONESFINAL REPORT Fluoroscopy, less than 1 hour History:ERCP Comparison: none Findings:Fluoroscopic assistance was provided during ERCP. Fluoroscopic images taken were interpreted bythe referring clinician. Please see separate procedure note for full details. Total Fluoroscopy time: 79.2 seconds Number of fluoroscopic images obtained: Four Impression:Fluoroscopy assistance as described above. Signed: Enio Ley Verified Date/ Time: 08/15/2018 17:37:26 Reading Location: [address] Reading Room POCT-GLUCOSE [id number] 17:35:00 Test Item Value Reference Range Comments POC-GLUCOSE METER (BEAKER) 180 mg/dL 70-[address] [facility] [address] [facility] (test kskf=8677) [facility] [address] POCT-GLUCOSE [id number] 07:57:00 Test Item Value Reference Range Comments POC-GLUCOSE METER (BEAKER) 129 mg/dL 70-[address] [facility] [address] [facility] (test mgyv=0889) [facility] [address] [id number] 06:01:00 Test Item Value Reference Range Comments MAGNESIUM (BEAKER) (test xvmc=644) 1.6 mg/dL 1.6-2.6 BASIC METABOLIC [id number] 06:01:00 Test Item Value Reference Range Comments SODIUM (BEAKER) (test 138 meq/L 136-145 yggv=869) POTASSIUM (BEAKER) (test 3.8 meq/L 3.5-5.1 jzdd=343) CHLORIDE (BEAKER) (test 108 meq/L 98-107 sqch=681) CO2 (BEAKER) (test 25 meq/L 22-29 rupl=787) BLOOD UREA NITROGEN 7 mg/dL 7-21 (BEAKER) (test ldsh=761) CREATININE (BEAKER) (test 0.77 mg/dL 0.57-1.25 gqym=527) GLUCOSE RANDOM (BEAKER) 123 mg/dL 70-105 (test hggo=263) CALCIUM (BEAKER) (test 10.0 mg/dL 8.4-10.2 jooq=401) EGFR (BEAKER) (test 72 mL/min/1.73 sq m ESTIMATED GFR IS NOT vagq=3303) ACCURATE CREATININE CLEARANCE IN PREDICTING GLOMERULAR FILTRATION RATE. ESTIMATED GFR IS NOT APPLICABLE FOR DIALYSIS PATIENTS. HEPATIC FUNCTION [id number] 06:01:00 Test Item Value Reference Range Comments TOTAL PROTEIN (BEAKER) (test wabz=827) 5.4 gm/dL 6.0-8.3 ALBUMIN (BEAKER) (test qwba=0792) 2.9 g/dL 3.5-5.0 BILIRUBIN TOTAL (BEAKER) (test dhow=512) 0.5 mg/dL 0.2-1.2 BILIRUBIN DIRECT (BEAKER) (test jiik=616) 0.3 mg/dL 0.1-0.5 ALKALINE PHOSPHATASE (BEAKER) (test zpev=088) 92 U/L 40-150 AST (SGOT) (BEAKER) (test kbig=909) 33 U/L 5-34 ALT (SGPT) (BEAKER) (test aatj=023) 30 U/L 6-55 CBC (HEMOGRAM ONLY)2018-08-15 04:44:00 Test Item Value Reference Range Comments WHITE BLOOD CELL COUNT (BEAKER) (test pjou=083) 11.8 K/ L 3.5-10.5 RED BLOOD CELL COUNT (BEAKER) (test qqzg=461) 3.97 M/ L 3.93-5.22 HEMOGLOBIN (BEAKER) (test piac=428) 12.6 GM/DL 11.2-15.7 HEMATOCRIT (BEAKER) (test bksi=340) 37.4 % 34.1-44.9 MEAN CORPUSCULAR VOLUME (BEAKER) (test skej=107) 94.2 fL 79.4-94.8 MEAN CORPUSCULAR HEMOGLOBIN (BEAKER) (test 31.7 pg 25.6-32.2 wiko=153) MEAN CORPUSCULAR HEMOGLOBIN CONC (BEAKER) (test 33.7 GM/DL 32.2-35.5 gszh=029) RED CELL DISTRIBUTION WIDTH (BEAKER) (test 15.8 % 11.7-14.4 owgs=672) PLATELET COUNT (BEAKER) (test fzdc=285) 189 K/CU MM 150-450 MEAN PLATELET VOLUME (BEAKER) (test tqfz=932) 10.7 fL 9.4-12.3 NUCLEATED RED BLOOD CELLS (BEAKER) (test 0 /100 WBC 0-0 bzbf=134) POCT-GLUCOSE [id number] 23:38:00 Test Item Value Reference Range Comments POC-GLUCOSE METER (BEAKER) 137 mg/dL 70-110 TESTED AT [address] (test ymsq=9796) [facility] [address] POCT-GLUCOSE [id number] 12:13:00 Test Item Value Reference Range Comments POC-GLUCOSE METER (BEAKER) 159 mg/dL 70-110 TESTED AT [address] (test qlap=8993) [facility] [address] POCT-GLUCOSE [id number] 08:11:00 Test Item Value Reference Range Comments POC-GLUCOSE METER (BEAKER) 138 mg/dL 70-[address] [facility] [address] (test uopj=5109) [place] [address] [id number] 06:01:00 Test Item Value Reference Range Comments MAGNESIUM (BEAKER) (test ejfz=297) 1.7 mg/dL 1.6-2.6 BASIC METABOLIC [id number] 06:01:00 Test Item Value Reference Range Comments SODIUM (BEAKER) (test 138 meq/L 136-145 gszs=336) POTASSIUM (BEAKER) (test 3.8 meq/L 3.5-5.1 uurn=752) CHLORIDE (BEAKER) (test 109 meq/L 98-107 nyvy=168) CO2 (BEAKER) (test 26 meq/L 22-29 glky=323) BLOOD UREA NITROGEN 10 mg/dL 7-21 (BEAKER) (test hike=011) CREATININE (BEAKER) (test 0.80 mg/dL 0.57-1.25 bnda=802) GLUCOSE RANDOM (BEAKER) 106 mg/dL 70-105 (test btsh=038) CALCIUM (BEAKER) (test 9.4 mg/dL 8.4-10.2 njff=699) EGFR (BEAKER) (test 69 mL/min/1.73 sq m ESTIMATED GFR IS NOT gcbc=1617) ACCURATE CREATININE CLEARANCE IN PREDICTING GLOMERULAR FILTRATION RATE. ESTIMATED GFR IS NOT APPLICABLE FOR DIALYSIS PATIENTS. HEPATIC FUNCTION [id number] 06:01:00 Test Item Value Reference Range Comments TOTAL PROTEIN (BEAKER) (test zlra=825) 5.4 gm/dL 6.0-8.3 ALBUMIN (BEAKER) (test zmsa=5857) 2.9 g/dL 3.5-5.0 BILIRUBIN TOTAL (BEAKER) (test bbii=780) 0.5 mg/dL 0.2-1.2 BILIRUBIN DIRECT (BEAKER) (test xbvi=830) 0.4 mg/dL 0.1-0.5 ALKALINE PHOSPHATASE (BEAKER) (test zruj=568) 105 U/L 40-150 AST (SGOT) (BEAKER) (test qexi=555) 33 U/L 5-34 ALT (SGPT) (BEAKER) (test dsgw=807) 31 U/L 6-55 CBC (HEMOGRAM ONLY)2018-08-14 05:10:00 Test Item Value Reference Range Comments WHITE BLOOD CELL COUNT (BEAKER) (test euie=532) 10.6 K/ L 3.5-10.5 RED BLOOD CELL COUNT (BEAKER) (test kral=143) 3.87 M/ L 3.93-5.22 HEMOGLOBIN (BEAKER) (test eilg=759) 12.0 GM/DL 11.2-15.7 HEMATOCRIT (BEAKER) (test iiih=679) 36.9 % 34.1-44.9 MEAN CORPUSCULAR VOLUME (BEAKER) (test mwtw=165) 95.3 fL 79.4-94.8 MEAN CORPUSCULAR HEMOGLOBIN (BEAKER) (test 31.0 pg 25.6-32.2 qrxq=507) MEAN CORPUSCULAR HEMOGLOBIN CONC (BEAKER) (test 32.5 GM/DL 32.2-35.5 tpiq=279) RED CELL DISTRIBUTION WIDTH (BEAKER) (test 15.7 % 11.7-14.4 fzwn=319) PLATELET COUNT (BEAKER) (test bmsb=439) 158 K/CU MM 150-450 MEAN PLATELET VOLUME (BEAKER) (test fqfi=802) 11.0 fL 9.4-12.3 NUCLEATED RED BLOOD CELLS (BEAKER) (test 0 /100 WBC 0-0 rwrm=655) POCT-GLUCOSE [id number] 23:53:00 Test Item Value Reference Range Comments POC-GLUCOSE METER (BEAKER) 115 mg/dL 70-110 TESTED AT [address] (test tcvu=0814) [facility] [id number] POCT-GLUCOSE [id number] 16:48:00 Test Item Value Reference Range Comments POC-GLUCOSE METER (BEAKER) 83 mg/dL 70-110 TESTED AT [address] (test jtec=7154) [facility] [address] POCT-GLUCOSE [id number] 13:19:00 Test Item Value Reference Range Comments POC-GLUCOSE METER (BEAKER) 102 mg/dL 70-110 TESTED AT [address] (test nlqa=7355) [facility] [address] POCT-GLUCOSE [id number] 12:02:00 Test Item Value Reference Range Comments POC-GLUCOSE METER (BEAKER) 95 mg/dL 70-[address] [facility] [address] [facility] (test fxme=4721) [facility] [address] POCT-GLUCOSE [id number] 07:22:00 Test Item Value Reference Range Comments POC-GLUCOSE METER (BEAKER) 109 mg/dL 70-[address] [facility] [address] [facility] (test oczq=0485) [facility] [address] [id number] 04:31:00 Test Item Value Reference Range Comments MAGNESIUM (BEAKER) (test 1.7 mg/dL 1.6-2.6 Specimen slightly hemolyzed dnim=850) BASIC METABOLIC [id number] 04:31:00 Test Item Value Reference Range Comments SODIUM (BEAKER) (test 140 meq/L 136-145 geyx=004) POTASSIUM (BEAKER) (test 3.6 meq/L 3.5-5.1 Specimen slightly ynyb=407) hemolyzed CHLORIDE (BEAKER) (test 111 meq/L 98-107 knhf=376) CO2 (BEAKER) (test 24 meq/L 22-29 cplw=817) BLOOD UREA NITROGEN 12 mg/dL 7-21 (BEAKER) (test pdbk=991) CREATININE (BEAKER) (test 0.79 mg/dL 0.57-1.25 Specimen slightly bqjl=126) hemolyzed GLUCOSE RANDOM (BEAKER) 110 mg/dL 70-105 (test bjan=912) CALCIUM (BEAKER) (test 9.5 mg/dL 8.4-10.2 dwiv=181) EGFR (BEAKER) (test 70 mL/min/1.73 sq m ESTIMATED GFR IS NOT insc=3109) ACCURATE CREATININE CLEARANCE IN PREDICTING GLOMERULAR FILTRATION RATE. ESTIMATED GFR IS NOT APPLICABLE FOR DIALYSIS PATIENTS. HEPATIC FUNCTION [id number] 04:31:00 Test Item Value Reference Range Comments TOTAL PROTEIN (BEAKER) (test 5.2 gm/dL 6.0-8.3 Specimen slightly hemolyzed hnlf=433) ALBUMIN (BEAKER) (test 2.7 g/dL 3.5-5.0 Specimen slightly hemolyzed jffo=9048) BILIRUBIN TOTAL (BEAKER) (test 0.7 mg/dL 0.2-1.2 Specimen slightly hemolyzed ssyj=584) BILIRUBIN DIRECT (BEAKER) (test 0.3 mg/dL 0.1-0.5 Specimen slightly hemolyzed fgxx=434) ALKALINE PHOSPHATASE (BEAKER) 118 U/L 40-150 (test tecw=759) AST (SGOT) (BEAKER) (test 52 U/L 5-34 Specimen slightly hemolyzed hmzc=418) ALT (SGPT) (BEAKER) (test 43 U/L 6-55 Specimen slightly hemolyzed uiyg=767) CBC (HEMOGRAM ONLY)2018-08-13 03:56:00 Test Item Value Reference Range Comments WHITE BLOOD CELL COUNT (BEAKER) (test rodc=662) 9.7 K/ L 3.5-10.5 RED BLOOD CELL COUNT (BEAKER) (test gauq=721) 3.51 M/ L 3.93-5.22 HEMOGLOBIN (BEAKER) (test ozyf=059) 11.0 GM/DL 11.2-15.7 HEMATOCRIT (BEAKER) (test hnxs=936) 33.1 % 34.1-44.9 MEAN CORPUSCULAR VOLUME (BEAKER) (test cdic=575) 94.3 fL 79.4-94.8 MEAN CORPUSCULAR HEMOGLOBIN (BEAKER) (test 31.3 pg 25.6-32.2 egoc=832) MEAN CORPUSCULAR HEMOGLOBIN CONC (BEAKER) (test 33.2 GM/DL 32.2-35.5 hnak=820) RED CELL DISTRIBUTION WIDTH (BEAKER) (test 15.3 % 11.7-14.4 ffks=462) PLATELET COUNT (BEAKER) (test pgrp=623) 128 K/CU MM 150-450 MEAN PLATELET VOLUME (BEAKER) (test qlql=897) 11.1 fL 9.4-12.3 NUCLEATED RED BLOOD CELLS (BEAKER) (test 0 /100 WBC 0-0 efdm=472) POCT-GLUCOSE [id number] 22:11:00 Test Item Value Reference Range Comments POC-GLUCOSE METER (BEAKER) 138 mg/dL 70-110 TESTED AT [address] (test ypmg=9546) [facility] [address] POCT-GLUCOSE [id number] 16:28:00 Test Item Value Reference Range Comments POC-GLUCOSE METER (BEAKER) 155 mg/dL 70-110 TESTED AT [address] (test otie=2319) [facility] [address] CT, [id number] 13:32:00FINAL REPORT CT abdomen and pelvis without and [...] The liver is otherwise unremarkable. The patient isstatus post cholecystectomy, with nonspecific prominence of the [...] Impression: 1. No CT findings of complicated pancreatitis.2. Diffuse fatty infiltration of the liver.3. 14 mmnonobstructing calculus within the right renal pelvis.4. Small bilateral pleural effusions, right greater than left. Signed: Enio Ley MDReport Verified Date/Time: 08/12/2018 13:32:12 Reading Location: [facility] Diagnostic Imaging Reading Room - [place] [address] CT, BRAIN, WITHOUT [id number] 12:57:00FINAL REPORT CT, BRAIN, WITHOUT CONTRAST CLINICAL INDICATION: Confusion/delirium, altered LOC, unexplained COMPARISON: None TECHNIQUE: Noncontrast axial CT imaging of the brainand skull. DOSE REDUCTION: Dose modulation, iterative reconstruction, and/or weight-based adjustment of the mA/kV was utilized to reduce the radiation dose to as low as reasonably achievable. FINDINGS:No intracranial hemorrhage, midline shift or mass effect. Midline structures are normally developed.Mild chronic microvascular ischemic changes of the periventricular and subcortical white matter are present. No hydrocephalus. Orbits are within normal limits. Prior bilateral lens surgery No obstructive paranasal sinus disease. IMPRESSION: No acute intracranial findings If there is persistent clinical concern for intracranial pathology, MR examination is recommended for further characterization. Signed: Meagan Motta Verified Date/Time: 2018 12:57:37 Reading Location: [facility] Radiology Reading Room POCT -GLUCOSE [id number] 12:48:00 Test Item Value Reference Range Comments POC-GLUCOSE METER (BEAKER) 156 mg/dL 70-110 TESTED AT [address] (test edca=8721) [facility] [address] POCT-GLUCOSE [id number] 07:16:00 Test Item Value Reference Range Comments POC-GLUCOSE METER (BEAKER) 157 mg/dL 70-110 TESTED AT [address] (test swyn=5450) [facility] [address] VITAMIN [id number] 05:53:00 Test Item Value Reference Range Comments VITAMIN B12 (BEAKER) (test omem=985) 1063 pg/mL 213-816 [id number] 05:27:00 Test Item Value Reference Range Comments MAGNESIUM (BEAKER) (test fyhv=404) 1.7 mg/dL 1.6-2.6 BASIC METABOLIC [id number] 05:27:00 Test Item Value Reference Range Comments SODIUM (BEAKER) (test 140 meq/L 136-145 tpzb=070) POTASSIUM (BEAKER) (test 3.6 meq/L 3.5-5.1 hjzv=589) CHLORIDE (BEAKER) (test 109 meq/L 98-107 tnsy=055) CO2 (BEAKER) (test 27 meq/L 22-29 zyum=148) BLOOD UREA NITROGEN 16 mg/dL 7-21 (BEAKER) (test urux=827) CREATININE (BEAKER) (test 0.88 mg/dL 0.57-1.25 eajv=152) GLUCOSE RANDOM (BEAKER) 152 mg/dL 70-105 (test sswv=027) CALCIUM (BEAKER) (test 9.7 mg/dL 8.4-10.2 ydwe=295) EGFR (BEAKER) (test 62 mL/min/1.73 sq m ESTIMATED GFR IS NOT qtiw=8409) ACCURATE CREATININE CLEARANCE IN PREDICTING GLOMERULAR FILTRATION RATE. ESTIMATED GFR IS NOT APPLICABLE FOR DIALYSIS PATIENTS. HEPATIC FUNCTION [id number] 05:27:00 Test Item Value Reference Range Comments TOTAL PROTEIN (BEAKER) (test yfcj=471) 5.9 gm/dL 6.0-8.3 ALBUMIN (BEAKER) (test jshx=6174) 3.2 g/dL 3.5-5.0 BILIRUBIN TOTAL (BEAKER) (test kkhj=688) 1.1 mg/dL 0.2-1.2 BILIRUBIN DIRECT (BEAKER) (test uhew=253) 0.7 mg/dL 0.1-0.5 ALKALINE PHOSPHATASE (BEAKER) (test weym=452) 77 U/L 40-150 AST (SGOT) (BEAKER) (test ltwh=921) 26 U/L 5-34 ALT (SGPT) (BEAKER) (test ceuf=053) 19 U/L 6-55 LACTIC ACID, [id number] 05:12:00 Test Item Value Reference Range Comments LACTATE BLOOD VENOUS (2) 0.9 mmol/L 0.5-2.2 Specimen slightly hemolyzed (BEAKER) (test wibt=6322) CBC (HEMOGRAM ONLY)2018-08-12 05:00:00 Test Item Value Reference Range Comments WHITE BLOOD CELL COUNT (BEAKER) (test wmxv=258) 12.8 K/ L 3.5-10.5 RED BLOOD CELL COUNT (BEAKER) (test oyfp=789) 3.82 M/ L 3.93-5.22 HEMOGLOBIN (BEAKER) (test qlqr=287) 12.1 GM/DL 11.2-15.7 HEMATOCRIT (BEAKER) (test bgrv=726) 36.4 % 34.1-44.9 MEAN CORPUSCULAR VOLUME (BEAKER) (test dxtz=157) 95.3 fL 79.4-94.8 MEAN CORPUSCULAR HEMOGLOBIN (BEAKER) (test 31.7 pg 25.6-32.2 uslb=052) MEAN CORPUSCULAR HEMOGLOBIN CONC (BEAKER) (test 33.2 GM/DL 32.2-35.5 hnwt=888) RED CELL DISTRIBUTION WIDTH (BEAKER) (test 15.3 % 11.7-14.4 umec=307) PLATELET COUNT (BEAKER) (test sheq=954) 154 K/CU MM 150-450 MEAN PLATELET VOLUME (BEAKER) (test zqwj=743) 11.0 fL 9.4-12.3 NUCLEATED RED BLOOD CELLS (BEAKER) (test 0 /100 WBC 0-0 djtm=745) TROPONIN [id number] 01:40:00 Test Item Value Reference Range Comments TROPONIN I (BEAKER) (test voze=589) 0.02 ng/mL 0.00-0.03 Troponin I (TnI) levels must be interpreted in the context of the presenting symptoms and the clinical findings. Elevated TnI levels indicate myocardial damage, but are not specific for ischemic heart disease. Elevated TnI levels are seen in patients with other cardiac conditions (including myocarditis and congestive heart failure), and slight TnI elevations occur in patients with other conditions, including sepsis, renal failure, acidosis, acute neurological disease, and persistent tachyarrhythmia.POCT-GLUCOSE [id number] 22:32:00 Test Item Value Reference Range Comments POC-GLUCOSE METER (BEAKER) 154 mg/dL 70-[address] [facility] [address] [facility] (test xscy=0444) [facility] [address] [id number] 22:27:00 Test Item Value Reference Range Comments PROCALCITONIN (BEAKER) (test xsui=2126) < ng/mL <0.05 SEPSIS RISK (ng/mL)Low: 0.05-0.50Intermediate: 0.51-2.00High: & gt;=2.01TROPONIN [id number] 18:31:00 Test Item Value Reference Range Comments TROPONIN I (BEAKER) (test ssgt=384) 0.01 ng/mL 0.00-0.03 Troponin I (TnI) levels must be interpreted in the context of the presenting symptoms and the clinical findings. Elevated TnI levels indicate myocardial damage, but are not specific for ischemic heart disease. Elevated TnI levels are seen in patients with other cardiac conditions (including myocarditis and congestive heart failure), and slight TnI elevations occur in patients with other conditions, including sepsis, renal failure, acidosis, acute neurological disease, and persistent tachyarrhythmia.POCT-GLUCOSE [id number] 12:21:00 Test Item Value Reference Range Comments POC-GLUCOSE METER (BEAKER) 178 mg/dL 70-110 TESTED AT [address] (test sztu=4100) [facility] [address] RAD, ABDOMEN/KUB, 1 VIEW [id number] 11:42:00Reason for exam:->abdominal painShould this be performed at the bedside?->YesFINAL REPORT CLINICAL HISTORY: abdominal pain TECHNIQUE: Supine abdomen COMPARISON: CT 03/21/2016 IMPRESSION: The bowel gas pattern is nonspecific. Free air and air- fluid levels are not seen but cannot be definitively excluded on the supine view. Right upper quadrant surgical clips are again seen. Right lower abdominal hernia repair mesh is again seen. Signed: Ken Bunn [facility] Verified Date/ Time: 08/11/2018 11:42:12 Reading Location: [facility] Radiology Reading Room POCT -BLOOD GASES, [id number] 09:41:00 Test Item Value Reference Range Comments TEMP, CELSIUS-POC (BEAKER) 36.9 (test ilcx=2626) FIO2-POC (BEAKER) (test 28 TESTED AT [address] xhtu=7916) [facility] [address] PH, VENOUS-POC (BEAKER) 7.344 7.320-7.420 (test dmke=2105) PCO2, VENOUS-POC (BEAKER) 48.8 mm Hg 41.0-51.0 (test veza=2505) PO2, VENOUS-POC (BEAKER) 36.0 mm Hg 25.0-40.0 (test bnbw=7088) SO2, VENOUS-POC (BEAKER) 66.0 % 40.0-70.0 (test qkgr=9387) HCO3, VENOUS-POC (BEAKER) 26.6 meq/L 21.0-29.0 (test vbla=9174) BASE EXCESS, VENOUS-POC 1.0 meq/L -2.0-3.0 (BEAKER) (test htbd=9026) [id number] 09:41:00 Test Item Value Reference Range Comments POC-SODIUM (BEAKER) (test 142 meq/L 135-148 TESTED AT [address] cdjn=8807) [place] [id number] 09:41:00 Test Item Value Reference Range Comments POC-POTASSIUM (BEAKER) (test 3.6 meq/L 3.6-5.5 TESTED AT [address] yjsg=9841) [place] [address] [id number] 09:41:00 Test Item Value Reference Range Comments POC-GLUCOSE (BEAKER) (test 165 mg/dL 70-110 TESTED AT [address] qyeo=6285) [place] [address] POCT-CALCIUM [id number] 09:41:00 Test Item Value Reference Range Comments POC-CALCIUM IONIZED (BEAKER) 1.50 mmol/L 1.12-1.27 TESTED AT [address] (test scbi=0781) [place] [address] [id number] 09:41:00 Test Item Value Reference Range Comments POC-HEMATOCRIT (BEAKER) (test 34 % 36-45 TESTED AT [address] wjyw=5415) [place] [address] [id number] 09:41:00 Test Item Value Reference Range Comments POC-HEMOGLOBIN (BEAKER) 11.6 g/dL 12.0-15.0 TESTED AT [address] (test hmrb=1726) [place] [address]TESTED AT [place] [id number] POCT-LACTIC ACID, [id number] 09:41:00 Test Item Value Reference Range Comments POC-LACTIC ACID, VENOUS 0.9 mmol/L 0.9-1.7 TESTED AT [address] (BEAKER) (test xvyl=6811) [place] [id number] URINALYSIS W/ REFLEX URINE [id number] 09:28:00 Test Item Value Reference Range Comments COLOR (BEAKER) (test tgdi=719) Yellow CLARITY (BEAKER) (test lwor=682) Clear SPECIFIC GRAVITY UA (BEAKER) (test okon=076) 1.012 1.001-1.035 PH UA (BEAKER) (test saga=401) 6.0 5.0-8.0 PROTEIN UA (BEAKER) (test etjn=716) 10 mg/dL Negative GLUCOSE UA (BEAKER) (test vunm=088) 50 mg/dL Negative KETONES UA (BEAKER) (test bijj=301) 20 mg/dL Negative BILIRUBIN UA (BEAKER) (test fgeu=428) Negative Negative BLOOD UA (BEAKER) (test aeip=749) Moderate Negative NITRITE UA (BEAKER) (test ebrs=761) Negative Negative LEUKOCYTE ESTERASE UA (BEAKER) (test zlqn=051) Negative Negative UROBILINOGEN UA (BEAKER) (test dguv=448) 0.2 mg/dL 0.2-1.0 RBC UA (BEAKER) (test eggx=724) 105 /HPF WBC UA (BEAKER) (test lrht=263) 2 /HPF SOURCE(BEAKER) (test fpip=9329) POCT-GLUCOSE [id number] 09:17:00 Test Item Value Reference Range Comments POC-GLUCOSE METER (BEAKER) 172 mg/dL 70-[address] [facility] [address] [facility] (test xoyk=1646) [facility] [address] [id number] 06:43:00 Test Item Value Reference Range Comments MAGNESIUM (BEAKER) (test tvgq=064) 1.7 mg/dL 1.6-2.6 BASIC METABOLIC [id number] 06:43:00 Test Item Value Reference Range Comments SODIUM (BEAKER) (test 140 meq/L 136-145 horm=194) POTASSIUM (BEAKER) (test 3.7 meq/L 3.5-5.1 wvvk=730) CHLORIDE (BEAKER) (test 110 meq/L 98-107 doud=136) CO2 (BEAKER) (test 25 meq/L 22-29 jxas=812) BLOOD UREA NITROGEN 16 mg/dL 7-21 (BEAKER) (test lghj=800) CREATININE (BEAKER) (test 0.78 mg/dL 0.57-1.25 xeho=071) GLUCOSE RANDOM (BEAKER) 163 mg/dL 70-105 (test kpzq=680) CALCIUM (BEAKER) (test 10.3 mg/dL 8.4-10.2 kuax=734) EGFR (BEAKER) (test 71 mL/min/1.73 sq m ESTIMATED GFR IS NOT zixk=3612) ACCURATE CREATININE CLEARANCE IN PREDICTING GLOMERULAR FILTRATION RATE. ESTIMATED GFR IS NOT APPLICABLE FOR DIALYSIS PATIENTS. HEPATIC FUNCTION [id number] 06:43:00 Test Item Value Reference Range Comments TOTAL PROTEIN (BEAKER) (test kwmd=683) 5.8 gm/dL 6.0-8.3 ALBUMIN (BEAKER) (test diec=4191) 3.2 g/dL 3.5-5.0 BILIRUBIN TOTAL (BEAKER) (test bcug=593) 1.1 mg/dL 0.2-1.2 BILIRUBIN DIRECT (BEAKER) (test hktb=088) 0.7 mg/dL 0.1-0.5 ALKALINE PHOSPHATASE (BEAKER) (test lbfm=982) 76 U/L 40-150 AST (SGOT) (BEAKER) (test gxue=832) 23 U/L 5-34 ALT (SGPT) (BEAKER) (test zkqy=847) 20 U/L 6-55 CBC (HEMOGRAM ONLY)2018-08-11 05:56:00 Test Item Value Reference Range Comments WHITE BLOOD CELL COUNT (BEAKER) (test lgus=859) 15.2 K/ L 3.5-10.5 RED BLOOD CELL COUNT (BEAKER) (test fezl=354) 3.68 M/ L 3.93-5.22 HEMOGLOBIN (BEAKER) (test nxad=486) 11.5 GM/DL 11.2-15.7 HEMATOCRIT (BEAKER) (test orum=410) 35.4 % 34.1-44.9 MEAN CORPUSCULAR VOLUME (BEAKER) (test tsnh=443) 96.2 fL 79.4-94.8 MEAN CORPUSCULAR HEMOGLOBIN (BEAKER) (test 31.3 pg 25.6-32.2 kxhb=048) MEAN CORPUSCULAR HEMOGLOBIN CONC (BEAKER) (test 32.5 GM/DL 32.2-35.5 aozo=832) RED CELL DISTRIBUTION WIDTH (BEAKER) (test 15.8 % 11.7-14.4 yqtq=236) PLATELET COUNT (BEAKER) (test nzzk=820) 139 K/CU MM 150-450 MEAN PLATELET VOLUME (BEAKER) (test sunz=487) 11.3 fL 9.4-12.3 NUCLEATED RED BLOOD CELLS (BEAKER) (test 0 /100 WBC 0-0 yiqf=097) TROPONIN [id number] 01:18:00 Test Item Value Reference Range Comments TROPONIN I (BEAKER) (test ngee=743) 0.04 ng/mL 0.00-0.03 Troponin I (TnI) levels must be interpreted in the context of the presenting symptoms and the clinical findings. Elevated TnI levels indicate myocardial damage, but are not specific for ischemic heart disease. Elevated TnI levels are seen in patients with other cardiac conditions (including myocarditis and congestive heart failure), and slight TnI elevations occur in patients with other conditions, including sepsis, renal failure, acidosis, acute neurological disease, and persistent tachyarrhythmia.[id number] 01:13:00 Test Item Value Reference Range Comments MAGNESIUM (BEAKER) (test lpok=504) 1.6 mg/dL 1.6-2.6 BASIC METABOLIC [id number] 01:13:00 Test Item Value Reference Range Comments SODIUM (BEAKER) (test 138 meq/L 136-145 yszm=824) POTASSIUM (BEAKER) (test 3.7 meq/L 3.5-5.1 cwzu=715) CHLORIDE (BEAKER) (test 109 meq/L 98-107 vxbl=124) CO2 (BEAKER) (test 26 meq/L 22-29 angj=610) BLOOD UREA NITROGEN 15 mg/dL 7-21 (BEAKER) (test ywag=909) CREATININE (BEAKER) (test 0.74 mg/dL 0.57-1.25 jxyx=793) GLUCOSE RANDOM (BEAKER) 147 mg/dL 70-105 (test xolp=640) CALCIUM (BEAKER) (test 10.0 mg/dL 8.4-10.2 sray=687) EGFR (BEAKER) (test 76 mL/min/1.73 sq m ESTIMATED GFR IS NOT vykg=3501) ACCURATE CREATININE CLEARANCE IN PREDICTING GLOMERULAR FILTRATION RATE. ESTIMATED GFR IS NOT APPLICABLE FOR DIALYSIS PATIENTS. HEPATIC FUNCTION [id number] 01:13:00 Test Item Value Reference Range Comments TOTAL PROTEIN (BEAKER) (test kvtp=520) 5.8 gm/dL 6.0-8.3 ALBUMIN (BEAKER) (test bidd=8208) 3.1 g/dL 3.5-5.0 BILIRUBIN TOTAL (BEAKER) (test zqcl=561) 1.0 mg/dL 0.2-1.2 BILIRUBIN DIRECT (BEAKER) (test kwnz=127) 0.6 mg/dL 0.1-0.5 ALKALINE PHOSPHATASE (BEAKER) (test jcxh=581) 75 U/L 40-150 AST (SGOT) (BEAKER) (test uscm=859) 20 U/L 5-34 ALT (SGPT) (BEAKER) (test dchy=103) 18 U/L 6-55 [id number] 01:13:00 Test Item Value Reference Range Comments LIPASE (BEAKER) (test siyd=058) 23 U/L 8-78 RAD, CHEST, 1 VIEW, NON [id number] 23:47:00Reason for exam:->piccShould this be performed at the bedside?->YesFINAL REPORT INDICATION: picc TECHNIQUE: Chest radiograph, single view, portable technique. FINDINGS / IMPRESSION: There is a right PICC line that terminates in the low SVC. Heart shadow is enlarged. There is a right perihilar opacity or mass. No pneumothorax or pleural effusionis demonstrated. Osseous structures unremarkable. Signed: Paulie Ndiaye MDReport Verified Date/Time: 08/10/2018 23:47:27 Reading Location: [address] Consult Reading Room POCT-GLUCOSE [id number] 23:29:00 Test Item Value Reference Range Comments POC-GLUCOSE METER (BEAKER) 158 mg/dL 70-[address] [facility] [address] [facility] (test npoq=1745) [facility] [address] HEMOGLOBIN [id number] 22:17:00 Test Item Value Reference Range Comments HEMOGLOBIN A1C (BEAKER) (test bhdi=167) 7.5 % 4.3-6.1 T4, [id number] 20:54:00 Test Item Value Reference Range Comments FREE T4 (BEAKER) (test hmfv=000) 0.86 ng/dL 0.70-1.48 TSH/FREE T4 IF [id number] 20:22:00 Test Item Value Reference Range Comments THYROID STIMULATING HORMONE (BEAKER) (test 0.30 uIU/mL 0.35-4.94 wsty=384) [id number] 19:31:00 Test Item Value Reference Range Comments AMMONIA (BEAKER) (test qzut=692) 29 mol/L 18-72 B-TYPE NATRIURETIC FACTOR (BNP)2018-08-10 18:48:00 Test Item Value Reference Range Comments B-TYPE NATRIURETIC PEPTIDE (BEAKER) (test 876 pg/mL 0-100 wvai=954) LACTIC ACID, [id number] 18:47:00 Test Item Value Reference Range Comments LACTATE BLOOD VENOUS (2) 1.0 mmol/L 0.5-2.2 Specimen slightly hemolyzed (BEAKER) (test dgck=7281) POCT-GLUCOSE [id number] 18:30:00 Test Item Value Reference Range Comments POC-GLUCOSE METER (BEAKER) 149 mg/dL 70-[address] [facility] [address] [facility] (test safm=5395) [facility] [address] [id number] 18:27:00 Test Item Value Reference Range Comments PROTIME (BEAKER) (test hswc=990) 14.8 seconds 11.9-14.2 INR (BEAKER) (test cssp=383) 1.2 <=5.9 PARTIAL THROMBOPLASTIN TIME (BEAKER) (test 30.3 seconds 22.5-36.0 mawj=612) Effective 07/15/2018: PT Reference Range ChangeNew: 11.9-14.2 Previous: 11.7- 14.7RECOMMENDED COUMADIN/WARFARIN INR THERAPY RANGESSTANDARD DOSE: 2.0-3.0 Includes: PROPHYLAXIS for venous thrombosis, systemic embolization; TREATMENT for venous thrombosis and/or pulmonary embolus.HIGH RISK: Target INR is2.5-3.5 for patients wiht mechanical heart valves.CBC W/PLT COUNT & AUTO [id number] 18:08:00 Test Item Value Reference Range Comments WHITE BLOOD CELL COUNT (BEAKER) (test emee=657) 15.4 K/ L 3.5-10.5 RED BLOOD CELL COUNT (BEAKER) (test snpy=107) 3.77 M/ L 3.93-5.22 HEMOGLOBIN (BEAKER) (test rnum=577) 11.8 GM/DL 11.2-15.7 HEMATOCRIT (BEAKER) (test zogj=514) 36.2 % 34.1-44.9 MEAN CORPUSCULAR VOLUME (BEAKER) (test mvaj=555) 96.0 fL 79.4-94.8 MEAN CORPUSCULAR HEMOGLOBIN (BEAKER) (test 31.3 pg 25.6-32.2 ayep=360) MEAN CORPUSCULAR HEMOGLOBIN CONC (BEAKER) (test 32.6 GM/DL 32.2-35.5 czde=087) RED CELL DISTRIBUTION WIDTH (BEAKER) (test 16.1 % 11.7-14.4 mbsk=663) PLATELET COUNT (BEAKER) (test jamo=346) 140 K/CU MM 150-450 MEAN PLATELET VOLUME (BEAKER) (test rrzo=806) 11.0 fL 9.4-12.3 NUCLEATED RED BLOOD CELLS (BEAKER) (test 0 /100 WBC 0-0 yyww=814) NEUTROPHILS RELATIVE PERCENT (BEAKER) (test 82 % mvcz=905) LYMPHOCYTES RELATIVE PERCENT (BEAKER) (test 8 % nozj=241) MONOCYTES RELATIVE PERCENT (BEAKER) (test 8 % reeb=352) EOSINOPHILS RELATIVE PERCENT (BEAKER) (test 0 % hbjm=385) BASOPHILS RELATIVE PERCENT (BEAKER) (test 0 % nsfn=616) NEUTROPHILS ABSOLUTE COUNT (BEAKER) (test 12.69 K/ L 1.56-6.13 nlfj=987) LYMPHOCYTES ABSOLUTE COUNT (BEAKER) (test 1.24 K/ L 1.18-3.74 xphi=455) MONOCYTES ABSOLUTE COUNT (BEAKER) (test 1.21 K/ L 0.24-0.36 xuey=705) EOSINOPHILS ABSOLUTE COUNT (BEAKER) (test 0.02 K/ L 0.04-0.36 utgs=092) BASOPHILS ABSOLUTE COUNT (BEAKER) (test 0.04 K/ L 0.01-0.08 yocq=574) IMMATURE GRANULOCYTES-RELATIVE PERCENT (BEAKER) 2 % 0-1 (test adgn=7771)
--- OUTSIDE RECORDS SUMMARY | 2018-09-07 18:28 | XMS REPORT | Continuity of Care Document ---
:1940 Author Organization [facility] [employer] Care Team Providers Name Role Phone [facility] Information [facility] Unavailable Unavailable Problems Problem Status Onset Classification Date Comments Source Date Reported M54.12 Active 10/02/19 [place] [address] [place] Diabetes Active Problem 10/16/2015 [facility] Diabetes Resolved Problem 10/16/2015 [facility] Gastric reflux Active Problem 10/16/2015 [facility] HTN - Resolved Problem 10/16/2015 [facility]ension [facility] Hypertension Active Problem 10/16/2015 [facility] RADICULOPATHY, Active [facility] [place] Medications Medication Details Route Status Patient Ordering [...] Sublimaze) Preservative free. Allergies, Adverse Reactions, Alerts No Known Medication Allergies Immunizations No Data Provided for This Section Results Order Name Results Value Reference Date Interpretation Comments Source Range ELECTROLYTES POC 4.6 3.5 - 5.1 Potassium 2015 [facility] ELECTROLYTES POC Sodium 137 135 - 145 2015 [facility] ELECTROLYTES POC Glucose 172 70 - 99 2015 [facility] ELECTROLYTES POC Ion Ca 1.23 1.05 - 1.25 2015 [facility] ELECTROLYTES POC 17.7 12.0 - 16.0 Hemoglobin 2015 [facility] ELECTROLYTES POC 52.0 36.0 - 48.0 Hematocrit 2015 [facility] ELECTROLYTES POC AGAP 17.0 10.0 - 20.0 2015 [facility] ELECTROLYTES eGFR 62 [facility] 2015 Comment: The Ortho eGFR is and calculated Spine using the CKD-EPI formula. In most young, healthy individuals the eGFR will be >90 mL/min/1.73m2 . The eGFR declines with age. An eGFR of 60-89 may be normal in some populations, particularly the elderly, for whom the CKD-EPI formula has not been extensively validated. Use of the eGFR is not recommended in the following populations:< br/>
Nancy viduals with unstable creatinine concentration s, including patients and those with serious co-morbid conditions.<b r/>
Patie nts with extremes in muscle mass or diet.

The data above are obtained from the National Kidney Disease Education Program (NKDEP) which additionally recommends that when the eGFR is used in patients with extremes of body mass index for purposes of drug dosing, the eGFR should be multiplied by the estimated BMI. ELECTROLYTES POC Chloride 104 95 - 109 2015 [facility] ELECTROLYTES POC Carbon 22 24 - 32 Dioxide 2015 [facility] ELECTROLYTES POC BUN 15 7 - 22 2015 [facility] ELECTROLYTES POC 0.9 0.5 - 1.4 Creatinine 2015 [facility] ELECTROLYTES POC 4.2 3.5 - 5.1 Potassium 2015 [facility] ELECTROLYTES POC Sodium 135 135 - 145 2015 [facility] ELECTROLYTES POC 0.8 0.5 - 1.4 Creatinine 2015 [facility] ELECTROLYTES POC BUN 16 7 - 22 2015 [facility] Spine ELECTROLYTES POC Carbon 20 24 - 32 Dioxide 2015 [facility] ELECTROLYTES POC Chloride 105 95 - 109 2015 [facility] Sp[facility] ELECTROLYTES POC 49.0 36.0 - 48.0 Hematocrit 2015 [facility] ELECTROLYTES POC Ion Ca 1.11 1.05 - 1.25 2015 [facility] ELECTROLYTES eGFR 72 2015 Comment: The Ortho eGFR is and calculated Spine using the CKD-EPI formula. In most young, healthy individuals the eGFR will be >90 mL/min/1.73m2 . The eGFR declines with age. An eGFR of 60-89 may be normal in some populations, particularly the elderly, for whom the CKD-EPI formula has not been extensively validated. Use of the eGFR is not recommended in the following populations:< br/>
Nancy viduals with unstable creatinine concentration s, including patients and those with serious co-morbid conditions.<b r/>
Patie nts with extremes in muscle mass or diet.

The data above are obtained from the National Kidney Disease Education Program (NKDEP) which additionally recommends that when the eGFR is used in patients with extremes of body mass index for purposes of drug dosing, the eGFR should be multiplied by the estimated BMI. ELECTROLYTES POC AGAP 16.0 10.0 - 20.0 2015 [facility] ELECTROLYTES POC 16.7 12.0 - 16.0 Hemoglobin 2016 [facility] ELECTROLYTES POC Glucose 195 70 - 99 2016 [facility] Pathology Reports No Data Provided for This Section Diagnostic Reports Report Value Date Source Spine cervical EXAM: POST MYELOGRAM CT SCAN OF CERVICAL SPINE 10/13/2015 [facility] myelogram CT DATE: 10/13/2015 10:08 AM CDT INDICATION: radiculopathy, cervical region. M 54.12, neck [...] arthrosis to the right with probable fusion. Opjh-hq-lzxytsyv right foraminal narrowing. C3-C4: Uyvg-sp-svidxyfv grade 1 degenerative anterolisthesis of C3 on C4 with a 4 -- 5 mm posterior broad-based disc osteophyte complex indenting ventral cord with posterior cord displacement there and mild central canal narrowing. Cord is mildly flattened. Facet arthrosis greater to the left with hypertrophy noted phlz-dn-oopuwlzk left and mild right foraminal narrowing. C4-C5: Slight degenerative retrolisthesis of C4 on C5 with a 3 -- 4 mm posterior disc osteophyte complex mildly compressing and flattening cord against prominent ligament flavum with mild to moderate ce ntral canal stenosis and mild cord flattening. Ffgn-jf-mrnudybr bilateral foraminal narrowing secondary to facet and uncovertebral joint degeneration C5-C6: Mild degenerative retrolisthesis of C5 on C6 with a 4 -- 5 mm posterior disc osteophyte complex compressing cord against posterior elements. There is ahre-ec-wtmheapy central canal stenosis with cord flattening there [...] Multilevel facetal arthrosis as described above. Spine cervical EXAM: Cervical MYELOGRAM 10/13/2015 [facility] myelogram DX DATE: 10/13/2015 10:07 AM CDT INDICATION: radiculpathy, cervical region. COMPARISON: None. DESCRIPTION [...] with mild narrowing subarachnoid space. 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 Sp[facility] [id number] Fernie 10/12 10/13 [facility]ine [facility] Procedures Procedure Code Date Perfomer Comments Source Abdominal [id number] Ortho hysterectomy and Spine Cholecystectomy [id number] [facility] Excision of lesion of [id number] [facility] phalanges of foot and Spine Assessment and Plan No Data Provided for This Section Plan of Care No Data Provided for This Section Social History Social History Date Source Social History TypeResponse 10/13/2015 [facility] Smoking Status Never smoker; Exposure to Tobacco Smoke None; Cigarette Smoking Last 365 Days No; Reg Smoking Cessation Counseling No Family History No Data Provided for This Section Advance Directives No Data Provided for This Section Functional Status No Data Provided for This Section
--- NOTE | 2018-09-07 19:17 | ER ---
Nurse's Notes [facility] Name: Judy Puri Age: 78 yrs Sex: Female : 1940 Arrival Date: 09/07/2018 Time: 18:26 Bed 27 Private MD: Diagnosis: Chest pain, unspecified;Bradycardia, unspecified;Type 2 diabetes mellitus;Essential (primary) hypertension;Unspecified kidney failure Presentation: 09/07 18:32 Presenting complaint: Patient states: Substernal chest pain that radiates to the right aj1 arm for the past 2 days that got worse today. Denies nausea, SOB, palpitations or cough. Transition of care: patient was not received from another setting of care. Onset of symptoms was September 05, 2018. Risk Assessment: Do you want to hurt yourself or someone else? Patient reports no desire to harm self or others. Initial Sepsis Screen: Does the patient meet any 2 criteria? No. Patient's initial sepsis screen is negative. Does the patient have a suspected source of infection? No. Patient's initial sepsis screen is negative. Care prior to arrival: None. 18:32 Method Of Arrival: EMS: [facility] aj1 18:32 Acuity: JONATHAN 3 aj1 Triage Assessment: 18:35 General: Appears in no apparent distress. comfortable, Behavior is calm, cooperative, aj1 appropriate for age. Pain: Complains of pain in mid-sternal area Pain radiates to right arm Pain currently is 9 out of 10 on a pain scale. Neuro: Level of Consciousness is awake, alert, obeys commands. Cardiovascular: Patient's skin is warm and dry. Rhythm is sinus bradycardia. Historical: - Allergies: 18:35 Codeine; aj1 18:35 Propoxyphene HCl; aj1 18:34 Codeine; iw 18:34 Propoxyphene HCl; iw - PMHx: 18:35 Atrial Fib; Diabetes - NIDDM; Hypertension; Myocardial infarction; aj1 18:34 Atrial Fib; Diabetes - NIDDM; Hypertension; Myocardial infarction; iw - PSHx: 18:34 Cholecystectomy; Hysterectomy; Heart stents; bladder lift x 3; iw - Immunization history:: Flu vaccine is not up to date. - Social history:: Smoking status: Patient/guardian denies using tobacco. - Ebola Screening: : Patient denies travel to an Ebola-affected area in the 21 days before illness onset. - Family history:: not pertinent. Screenin:40 Abuse screen: Denies threats or abuse. Denies injuries from another. Nutritional ca1 screening: No deficits noted. Tuberculosis screening: No symptoms or risk factors identified. Fall Risk IV access (20 points). Assessment: 19:40 General: Appears in no apparent distress. comfortable, Behavior is calm, cooperative, ca1 appropriate for age. Pain: Complains of pain in chest and right arm and mid-sternal area Pain currently is 0 out of 10 on a pain scale. Quality of pain is described as sore Pain began this morning Is intermittent. Neuro: Level of Consciousness is awake, alert, obeys commands, Oriented to person, place, time, situation. Cardiovascular: Heart tones S1 S2 present Capillary refill < 3 seconds Patient's skin is warm and dry. Pulses are all present. Rhythm is sinus bradycardia. Respiratory: Airway is patent Respiratory effort is even, unlabored, Respiratory pattern is regular, symmetrical, Breath sounds are clear bilaterally. GI: Abdomen is round non-distended, Bowel sounds present X 4 quads. Abd is soft and non tender X 4 quads. : No deficits noted. No signs and/or symptoms were reported regarding the genitourinary system. EENT: No deficits noted. No signs and/or symptoms were reported regarding the EENT system. Derm: Skin is intact, is healthy with good turgor, Skin is pink, warm \T\ dry. Musculoskeletal: Circulation, motion, and sensation intact. Capillary refill < 3 seconds, Range of motion: intact in all extremities. 20:15 Reassessment: Dr. Ko at bedside. ca1 20:37 Reassessment: Patient appears in no apparent distress at this time. Patient and/or ca1 family updated on plan of care and expected duration. Pain level reassessed. Patient is alert, oriented x 3, equal unlabored respirations, skin warm/dry/pink. Vital Signs: 18:31 BP 122 / 65; Pulse 63; Resp 13; Temp 98.6(TE); Pulse Ox 95% on R/A; lt1 18:35 Weight 64.41 kg (R); Height 4 ft. 11 in. (149.86 cm) (R); aj1 19:40 BP 133 / 50; Pulse 57; Resp 16 S; Pulse Ox 95% on R/A; ca1 20:37 BP 149 / 52; Pulse 56; Resp 17; Temp 98.1(O); Pulse Ox 94% on R/A; Pain 0/10; ca1 18:35 Body Mass Index 28.68 (64.41 kg, 149.86 cm) aj1 ED Course: 18:26 Patient arrived in ED. aj1 18:33 Triage completed. aj1 18:35 Arm band placed on. aj1 18:43 Buster Hawkins MD is Attending Physician. raad 19:15 Tramaine Ko DO is Hospitalizing Provider. raad 19:21 XRAY Chest (1 view) In Process Unspecified. EDMS 19:40 Patient has correct armband on for positive identification. Placed in gown. Bed in low ca1 position. Call light in reach. Side rails up X 1. lunchroom monitor on. Pulse ox on. NIBP on. Warm blanket given. 19:40 No provider procedures requiring assistance completed. Lab(s) recollected, by me. ca1 Inserted saline lock: 20 gauge in left antecubital area, using aseptic technique. Blood collected. Patient maintains SpO2 saturation greater than 95% on room air. 19:53 Camilla Castro, RN is Primary Nurse. ca1 20:37 Patient admitted, IV remains in place. ca1 Administered Medications: 19:35 Drug: Aspirin 162 mg Route: PO; ca1 20:50 Follow up: Response: No adverse reaction; Pain is decreased ca1 20:50 Follow up: Response: No adverse reaction ca1 19:40 Drug: NS 0.9% 1000 ml Route: IV; Rate: 125 ml/hr; Site: left antecubital; ca1 20:50 Follow up: Urine output 120 ml; Response: No adverse reaction; IV Status: Infusion ca1 continued upon admission 20:50 Follow up: Urine output 120 ml; Response: No adverse reaction; IV Status: Infusion ca1 continued upon admission 19:40 Drug: Pepcid 20 mg Route: IVP; Site: left antecubital; ca1 20:50 Follow up: Response: No adverse reaction ca1 20:50 Follow up: Response: No adverse reaction ca1 19:45 Drug: Lovenox 60 mg Route: Sub-Q; Site: left lower abdomen; ca1 20:50 Follow up: Response: No adverse reaction ca1 20:50 Follow up: Response: No adverse reaction ca1 Output: 20:50 Urine: 120ml; Total: 120ml. ca1 Outcome: 19:17 Decision to Hospitalize by Provider. raad 20:37 Admitted to Tele accompanied by tech, via stretcher, room 402, with chart, Report ca1 called to NATALI Quinonez 20:37 Condition: stable 20:37 Instructed on the need for admit, Demonstrated understanding of instructions. 20:54 Patient left the ED. ca1 Signatures: Dispatcher [employer] Jenniffer Brantley RN RN aj1 Buster Hawkins MD MD cha Williams, Irene RN Camilla Moody RN RN ca1 Tran, Irasema [facility]
--- NOTE | 2018-09-07 19:18 | EDPHYS ---
Physician Documentation [facility] Name: Judy Puri Age: 78 yrs Sex: Female : 1940 Arrival Date: 09/07/2018 Time: 18:26 Bed 27 Private MD: ED Physician Buster Hawkins HPI: 09/07 19:12 This 78 yrs old Female presents to ER via EMS with complaints of Chest Pain. raad 19:12 The patient or guardian reports chest pain that is located primarily in the substernal raad area. Onset: this morning. The pain does not radiate. Associated signs and symptoms: The patient has no apparent associated signs or symptoms. The chest pain is described as a heaviness, a pressure. Modifying factors: The symptoms are alleviated by nothing. the symptoms are aggravated by nothing. Severity of pain: At its worst the pain was mild moderate in the emergency department the pain is unchanged. The patient has not experienced similar symptoms in the past. Historical: - Allergies: 18:35 Codeine; aj1 18:35 Propoxyphene HCl; aj1 18:34 Codeine; iw 18:34 Propoxyphene HCl; iw - PMHx: 18:35 Atrial Fib; Diabetes - NIDDM; Hypertension; Myocardial infarction; aj1 18:34 Atrial Fib; Diabetes - NIDDM; Hypertension; Myocardial infarction; iw - PSHx: 18:34 Cholecystectomy; Hysterectomy; Heart stents; bladder lift x 3; iw - Immunization history:: Flu vaccine is not up to date. - Social history:: Smoking status: Patient/guardian denies using tobacco. - Ebola Screening: : Patient denies travel to an Ebola-affected area in the 21 days before illness onset. - Family history:: not pertinent. ROS: 19:12 Constitutional: Negative for fever, chills, and weight loss, Eyes: Negative for injury, raad pain, redness, and discharge, ENT: Negative for injury, pain, and discharge, Neck: Negative for injury, pain, and swelling, Respiratory: Negative for shortness of breath, cough, wheezing, and pleuritic chest pain, Abdomen/GI: Negative for abdominal pain, nausea, vomiting, diarrhea, and constipation, Back: Negative for injury and pain, : Negative for injury, bleeding, discharge, and swelling, MS/Extremity: Negative for injury and deformity, Skin: Negative for injury, rash, and discoloration, Neuro: Negative for headache, weakness, numbness, tingling, and seizure, Psych: Negative for depression, anxiety, suicide ideation, homicidal ideation, and hallucinations, Allergy/Immunology: Negative for hives, rash, and allergies, Endocrine: Negative for neck swelling, polydipsia, polyuria, polyphagia, and marked weight changes, Hematologic/Lymphatic: Negative for swollen nodes, abnormal bleeding, and unusual bruising. 19:12 Cardiovascular: Positive for chest pain. Exam: 19:12 Constitutional: This is a well developed, well nourished patient who is awake, alert, raad and in no acute distress. Head/Face: Normocephalic, atraumatic. Eyes: Pupils equal round and reactive to light, extra-ocular motions intact. Lids and lashes normal. Conjunctiva and sclera are non-icteric and not injected. Cornea within normal limits. Periorbital areas with no swelling, redness, or edema. ENT: Nares patent. No nasal discharge, no septal abnormalities noted. Tympanic membranes are normal and external auditory canals are clear. Oropharynx with no redness, swelling, or masses, exudates, or evidence of obstruction, uvula midline. Mucous membranes moist. Neck: Trachea midline, no thyromegaly or masses palpated, and no cervical lymphadenopathy. Supple, full range of motion without nuchal rigidity, or vertebral point tenderness. No Meningismus. Chest/axilla: Normal chest wall appearance and motion. Nontender with no deformity. No lesions are appreciated. Respiratory: Lungs have equal breath sounds bilaterally, clear to auscultation and percussion. No rales, rhonchi or wheezes noted. No increased work of breathing, no retractions or nasal flaring. Abdomen/GI: Soft, non-tender, with normal bowel sounds. No distension or tympany. No guarding or rebound. No evidence of tenderness throughout. Back: No spinal tenderness. No costovertebral tenderness. Full range of motion. Female : Normal external genitalia. Skin: Warm, dry with normal turgor. Normal color with no rashes, no lesions, and no evidence of cellulitis. MS/ Extremity: Pulses equal, no cyanosis. Neurovascular intact. Full, normal range of motion. Neuro: Awake and alert, GCS 15, oriented to person, place, time, and situation. Cranial nerves II-XII grossly intact. Motor strength 5/5 in all extremities. Sensory grossly intact. Cerebellar exam normal. Normal gait. Psych: Awake, alert, with orientation to person, place and time. Behavior, mood, and affect are within normal limits. 19:12 Cardiovascular: Rate: bradycardic, Rhythm: regular, Pulses: no pulse deficits are appreciated, Heart sounds: normal, Edema: is not appreciated, JVD: is not appreciated. Vital Signs: 18:31 BP 122 / 65; Pulse 63; Resp 13; Temp 98.6(TE); Pulse Ox 95% on R/A; lt1 18:35 Weight 64.41 kg (R); Height 4 ft. 11 in. (149.86 cm) (R); aj1 19:40 BP 133 / 50; Pulse 57; Resp 16 S; Pulse Ox 95% on R/A; ca1 20:37 BP 149 / 52; Pulse 56; Resp 17; Temp 98.1(O); Pulse Ox 94% on R/A; Pain 0/10; ca1 18:35 Body Mass Index 28.68 (64.41 kg, 149.86 cm) aj1 MDM: 18:43 Patient medically screened. [facility] 19:14 Data reviewed: vital signs, nurses notes, lab test result(s), EKG, radiologic studies, raad plain films. 09/07 18:44 Order name: Basic Metabolic Panel; Complete Time: 20:04 [facility] 09/07 18:44 Order name: CBC with Diff; Complete Time: 20:04 [facility] 09/07 18:44 Order name: LFT's; Complete Time: 20:04 [facility] 09/07 18:44 Order name: Magnesium; Complete Time: 20:04 [facility] 09/07 18:44 Order name: NT PRO-BNP; Complete Time: 20:04 [facility] 09/07 18:44 Order name: PT-INR; Complete Time: 20:04 [facility] 09/07 18:44 Order name: Troponin (emerg Dept Use Only); Complete Time: 20:04 [facility] 09/07 18:44 Order name: XRAY Chest (1 view); Complete Time: 20:04 [facility] 09/07 18:44 Order name: EKG; Complete Time: 18:47 [facility] 09/07 18:44 Order name: Lipase; Complete Time: 20:04 [facility] 09/07 18:44 Order name: Cardiac monitoring; Complete Time: 18:44 [facility] 09/07 18:44 Order name: EKG - Nurse/Tech; Complete Time: 18:44 [facility] 09/07 18:44 Order name: IV Saline Lock; Complete Time: 18:45 [facility] 09/07 18:44 Order name: Labs collected and sent; Complete Time: 19:56 [facility] 09/07 18:44 Order name: O2 Per Protocol; Complete Time: 18:45 [facility] 09/07 18:44 Order name: O2 Sat Monitoring; Complete Time: 18:45 [facility] 09/07 18:44 Order name: Urine Dipstick-Ancillary (obtain specimen); Complete Time: 20:27 [facility] Administered Medications: 19:35 Drug: Aspirin 162 mg Route: PO; ca1 20:50 Follow up: Response: No adverse reaction; Pain is decreased ca1 20:50 Follow up: Response: No adverse reaction ca1 19:40 Drug: NS 0.9% 1000 ml Route: IV; Rate: 125 ml/hr; Site: left antecubital; ca1 20:50 Follow up: Urine output 120 ml; Response: No adverse reaction; IV Status: Infusion ca1 continued upon admission 20:50 Follow up: Urine output 120 ml; Response: No adverse reaction; IV Status: Infusion ca1 continued upon admission 19:40 Drug: Pepcid 20 mg Route: IVP; Site: left antecubital; ca1 20:50 Follow up: Response: No adverse reaction ca1 20:50 Follow up: Response: No adverse reaction ca1 19:45 Drug: Lovenox 60 mg Route: Sub-Q; Site: left lower abdomen; ca1 20:50 Follow up: Response: No adverse reaction ca1 20:50 Follow up: Response: No adverse reaction ca1 Disposition: 09/07/18 19:17 Hospitalization ordered by Tramaine Ko for Observation. Preliminary diagnosis are Chest pain, unspecified, Bradycardia, unspecified, Type 2 diabetes mellitus, Essential (primary) hypertension, Unspecified kidney failure. - Bed requested for Telemetry/MedSurg (observation). - Status is Observation. ca1 - Condition is Stable. - Problem is new. - Symptoms have improved. UTI on Admission? No Signatures: Dispatcher [employer] Jenniffer Brantley RN RN aj1 Buster Hawkins MD MD cha Williams, Irene, RN RN iw Acob, Cheryl, RN RN ca1 Corrections: (The following items were deleted from the chart) 20:05 19:17 Hospitalization Ordered by Tramaine Paxton for Observation. Preliminary raad diagnosis is Chest pain, unspecified; Bradycardia, unspecified; Type 2 diabetes mellitus; Essential (primary) hypertension. Bed requested for Telemetry/MedSurg (observation). Status is Observation. Condition is Stable. Problem is new. Symptoms have improved. UTI on Admission? No. raad 20:24 20:05 09/07/2018 19:17 Hospitalization Ordered by Tramaine Stefani ARELLANO for Observation. aj1 Preliminary diagnosis is Chest pain, unspecified; Bradycardia, unspecified; Type 2 diabetes mellitus; Essential (primary) hypertension; Unspecified kidney failure. Bed requested for Telemetry/MedSurg (observation). Status is Observation. Condition is Stable. Problem is new. Symptoms have improved. UTI on Admission? No. raad 20:54 20:24 09/07/2018 19:17 Hospitalization Ordered by [facility] for Observation. ca1 Preliminary diagnosis is Chest pain, unspecified; Bradycardia, unspecified; Type 2 diabetes mellitus; Essential (primary) hypertension; Unspecified kidney failure. Bed requested for Telemetry/MedSurg (observation). Status is Observation. Condition is Stable. Problem is new. Symptoms have improved. UTI on Admission? No. aj1
[2018-09-07 19:21] LABS: Protime INR 1.01
--- NOTE | 2018-09-07 19:26 | RAD REPORT ---
EXAM DESCRIPTION: RAD - Chest Single View - 09/07/2018 7:18 pm CLINICAL HISTORY: CHEST PAIN Chest pain. COMPARISON: <Comparisons> FINDINGS: Portable technique limits examination quality. The lungs are grossly clear. The heart is upper limit of normal in size. No displaced fractures. IMPRESSION: No acute intrathoracic process suspected.
[2018-09-07 19:34] LABS: ALT/SGPT 21 U/L (12-78); AST/SGOT 28 U/L (15-37); Albumin 3.2 g/dL (3.4-5.0); Alkaline Phosphatase 108 U/L (45-117); BUN Blood Urea Nitrogen 21 mg/dL (7-18); Bicarbonate 28 mmol/L (21-32); Bilirubin Direct 0.1 mg/dL (0-0.2); Bilirubin Total 0.2 mg/dL (0.2-1.0); Glucose Level 163 mg/dL (74-106); Lipase 325 U/L (73-393); Magnesium 2.3 mg/dL (1.8-2.4); NT PRO-BNP 405 pg/mL (<450); Potassium 4.8 mmol/L (3.5-5.1); Protein, Total 7.1 g/dL (6.4-8.2); Sodium Level 139 mmol/L (136-145); Troponin (Emerg Dept Use Only) < 0.02 ng/mL (0.0-0.045)
[2018-09-07 19:48] LABS: Absolute Lymphocytes (CBC) 2.2 K/uL (0.7-4.9); Hematocrit 37.3 % (36.0-45.0); Lymphocytes % 26.8 % (15.3-44.8); MPV 9.3 fL (7.6-11.3); RBC Red Blood Cell Count 3.78 M/uL (3.86-4.86)
[2018-09-07] MEDS ORDERED: ENOXAPARIN 60 MG/0.6 ML SQ ONE (19:59)
[2018-09-07] MEDS ORDERED: ASPIRIN EC 81 MG TAB PO ONE (19:59)
[2018-09-07] MEDS ORDERED: NA CHLORIDE 0.9% 1,000 ML ONE (19:59)
[2018-09-07] MEDS ORDERED: FAMOTIDINE 20 MG/2 ML VIAL IV ONE (19:59)
[2018-09-07] MEDS ORDERED: MORPHINE 4 MG/ML SYR IV PRN (20:28)
[2018-09-07] MEDS ORDERED: NITROGLYCERIN 0.4 MG/TAB SL PRN (20:28)
--- NOTE | 2018-09-07 20:39 | P.HP ---
Certification for Inpatient Patient admitted to: Observation With expected LOS: <2 Midnights Patient will require the following post-hospital care: None Practitioner: I am a practitioner with admitting privileges, knowledge of patient current condition, hospital course, and medical plan of care. Services: Services provided to patient in accordance with Admission requirements found in Title 42 Section 412.3 of the Code of Federal Regulations Patient History Date of Service: 09/07/18 Primary Care Provider: Dr. Pino; Cardiology-Dr. Houser Reason for admission: Chest pain History of Present Illness: 78-year-old female presented to the emergency room with chest pain. Patient reported substernal chest pain over the last several days. Pain would come and go. Pain would also occur at rest. Patient with history of diabetes, hypertension, CAD, chronic atrial fibrillation without chronic anti coagulation therapy, and history of prior [place]. She reports having a stent done 2 years ago with similar chest pain. She tried to get get in to see her Steward/Stewardess Economy Class but was not able to. She came to the ER for further evaluation. Patient was recently hospitalized last month for pancreatitis related to choledocholithiasis. She was sent to [place] for ERCP. Since that time she reports no abdominal pain. It was noted at that time based on a CT scan that there was a 15 x 11 mm stone to the right renal pelvis with mild hydronephrosis. In the ER patient was evaluated. Blood pressure stable at 140 5/55. Initial troponin unremarkable. BNP unremarkable. Lipase unremarkable. Calcium at 10.6. White count 8.0, hemoglobin 12. Sodium 139, potassium 4.8. BUN of 21, creatinine 1.8 with a GFR 26. Glucose 163. Patient stabilized and admitted for further evaluation. When I saw the patient ER, she appeared stable. Chest pain resolved. Patient reports no prior history of kidney disease. Patient takes Lasix and losartan. Allergies codeine Adverse Reaction (Mild, Verified 05/03/16 12:51) Rash propoxyphene HCl [From Darvon] Adverse Reaction (Verified 05/03/16 12:51) Rash Home medications list reviewed: Yes Home Medications: Omeprazole [Prilosec] 40 mg PO BID 10/17/15 glipiZIDE [Glucotrol*] 5 mg PO BID 10/17/15 Gabapentin 1 tab PO BID 04/25/16 Hydrocodone 7.5/APAP 325 [[place] 7.5/325 mg*] 1 tab PO Q6H PRN 04/25/16 Atorvastatin Calcium [Lipitor] 40 mg PO BEDTIME 05/03/16 Sennosides [Senna Laxative] 2 tab PO BID 05/03/16 Aspirin [Adult Aspirin Regimen] 81 mg PO DAILY 08/07/18 Furosemide 20 mg PO DAILY 08/07/18 L.acidoph,Paracasei, B.lactis [Probiotic] 1 each PO PRN 08/07/18 Losartan Potassium 100 mg PO DAILY 08/07/18 Metoprolol Tartrate [Lopressor*] 50 mg PO BID 08/07/18 - Past Medical/Surgical History Diabetic: Yes -: Diabetes mellitus type 2, non insulin dependent -: Chronic neck pain with chronic headaches -: HTN -: History of CAD/stent -: Chronic AFib, not on chronic anti coagulation -: Diabetic neuropathy -: Hysterectomy -: Bladder suspension x3 -: Cholecystectomy -: Heart catheterization with stent -: ERCP with removal of stone Psychosocial/ Personal History: Patient is . She has no children - Family History Family History: Reviewed- Non-Contributory - Family History Father -: Heart disease Brother -: Heart disease - Social History Smoking Status: Never smoker Alcohol use: No CD- Drugs: No Caffeine use: No Place of Residence: Home Review of Systems General: As per HPI Eyes: Unremarkable ENT: Unremarkable Respiratory: Unremarkable Cardiovascular: Chest Pain, As per HPI Gastrointestinal: Unremarkable Genitourinary: Unremarkable Musculoskeletal: Unremarkable Integumentary: Unremarkable Neurological: Unremarkable Lymphatics: Unremarkable Physical Examination - Physical Exam General: Alert, In no apparent distress, Oriented x3, Cooperative HEENT: Atraumatic, Normocephalic, PERRLA, Other (Dry mucous membranes) Neck: Supple, No Thyromegaly Respiratory: Clear to auscultation bilaterally, Normal air movement Cardiovascular: Normal pulses, Regular rate/rhythm Gastrointestinal: Normal bowel sounds, Soft and benign, Non-distended, No ascites, No tenderness, No masses, No rebound, No guarding Musculoskeletal: No erythema, No tenderness, No warmth Integumentary: No tenderness/swelling, No erythema, No warmth, No cyanosis Neurological: Normal speech, Normal strength at 5/5 x4 extr, Normal tone, Normal affect - Studies Laboratory Data (last 24 hrs) 09/07/18 19:40: WBC 8.0, Hgb 12.0, Hct 37.3, Plt Count 212 09/07/18 18:57: PT 11.9, INR 1.01 09/07/18 18:57: Sodium 139, Potassium 4.8, BUN 21 H, Creatinine 1.88 H, Glucose 163 H, Magnesium 2.3, Total Bilirubin 0.2, AST 28, ALT 21, Alkaline Phosphatase 108, Lipase 325 Assessment and Plan - Plan Impression: Substernal chest pain with history of CAD and prior stent Chronic atrial fibrillation not on chronic anti coagulation therapy Hypertension Diabetes mellitus type 2, non insulin dependent Acute renal injury with history of 15 x 11 mm right renal pelvic stone with mild hydronephrosis Plan: Substernal chest pain with history of CAD and prior stent: Patient will be admitted for further evaluation and treatment. Will monitor cardiac enzymes and telemetry. Will consult cardiology to further evaluate. Will keep the patient NPO as the patient may require further evaluation. Will check echocardiogram in the morning. Will provide aspirin and nitroglycerin as needed for chest pain. Will start low-dose DVT prophylaxis-Lovenox. Await further evaluation by Cardiology. Likely discharge as early as tomorrow if workup unremarkable. Please note patient recently hospitalized last month and transferred to [place] for ERCP due to acute pancreatitis related to choledocholithiasis. Chronic atrial fibrillation not on chronic anti coagulation therapy: Continue with aspirin 81 mg daily. Will start low-dose metoprolol. Will need to obtain and restart home medication. Patient not on chronic anti coagulation therapy. Hypertension: Will hold off on losartan due to acute renal injury. Will provide metoprolol low dose and adjust accordingly. Diabetes mellitus type 2, non insulin dependent: Will monitor Accu-Cheks and place on a sliding scale. Will need to obtain home medication. If taking metformin will discontinue due to acute renal injury. Acute renal injury with history of 15 x 11 mm right renal pelvic stone with mild hydronephrosis: Previous lab done last month unremarkable. At that time 15 x 11 mm right renal pelvic stone with mild hydronephrosis was noted. Suspect mild dehydration. Will check renal ultrasound. Will consult Nephrology to further evaluate. Will discontinue losartan, Lasix at this time. Await further recommendations. Discharge Plan: Home Plan to discharge in: 24 Hours - Advance Directives Does patient have a Living Will: No Does patient have a Durable POA for Healthcare: No - Code Status/Comfort Care Code Status Assessed: Yes (Patient is full code) Time Spent Managing Pts Care (In Minutes): 55
[2018-09-07] MEDS ORDERED: ONDANSETRON 4 MG/2 ML VIAL IV PRN (21:40)
[2018-09-07] MEDS ORDERED: GABAPENTIN 100 MG CAP PO PRN (21:40)
[2018-09-07] MEDS ORDERED: ATORVASTATIN 40 MG TAB PO SCH (21:40)
[2018-09-07] MEDS ORDERED: ACETAMINOPHEN 500 MG TAB PO PRN (21:40)
[2018-09-07] MEDS ORDERED: NA CHLORIDE 0.9% 1,000 ML IV SCH (21:40)
[2018-09-07] MEDS: INSULIN -REGULAR HUMAN 50 UNIT/0.5 ML ML SQ SCH (21:40)
[2018-09-08] MEDS ORDERED: LORAZEPAM 0.5 MG TABLET PO PRN (01:05)
[2018-09-08 02:35] LABS: CKMB Creatine Kinase MB < 1.0 ng/mL (0.3-3.6); Creatine Phosphokinase 18 U/L (26-192); Troponin I < 0.02 ng/mL (0.0-0.045)
[2018-09-08] MEDS ORDERED: MELATONIN 5 MG TABLET PO PRN (05:50)
[2018-09-08] MEDS ORDERED: METOPROLOL TAR 25 MG TAB PO SCH ×2 (06:00)
[2018-09-08] MEDS ORDERED: PANTOPRAZOLE 40MG TABLET PO SCH (06:30)
[2018-09-08 07:01] LABS: Basophils % 1.2 % (0-1.3); Hematocrit 33.9 % (36.0-45.0); Lymphocytes % 28.6 % (15.3-44.8); RBC Red Blood Cell Count 3.48 M/uL (3.86-4.86)
[2018-09-08 07:16] LABS: CKMB Creatine Kinase MB < 1.0 ng/mL (0.3-3.6); Creatine Phosphokinase 16 U/L (26-192); Troponin I < 0.02 ng/mL (0.0-0.045)
[2018-09-08 07:21] LABS: Magnesium 2.1 mg/dL (1.8-2.4); Potassium 4.8 mmol/L (3.5-5.1); Thyroid Stimulating Hormone 2.43 uIU/mL (0.360-3.740)
[2018-09-08] MEDS: INSULIN -REGULAR HUMAN 50 UNIT/0.5 ML ML SQ SCH ×2 (07:30→11:30)
[2018-09-08 07:32] VITALS: BMI 29.8
[2018-09-08] MEDS ORDERED: ASPIRIN EC 81 MG TAB PO SCH (09:00)
[2018-09-08] MEDS ORDERED: ENOXAPARIN 40 MG/0.4 ML SQ SCH (09:00)
--- NOTE | 2018-09-08 09:18 | RAD REPORT ---
EXAM DESCRIPTION: US - Renal Ultrasound-Complete - 09/08/2018 8:41 am CLINICAL HISTORY: Acute renal injury Flank pain COMPARISON: RP EXAM COMPLETE dated 12/15/2012; Cholangiogram dated 08/07/2018; Abdomen Pelvis W Con trast dated 08/07/2018 FINDINGS: Both kidneys are normal in size, shape and echotexture. The right kidney measures 10.1 x 4.4 x 4.1 cm. 19 mm stone is present in the right kidney. No hydrone phrosis seen. The left kidney measures 9.6 x 4.7 x 4.1 cm. No hydronephrosis. 11 x 10 mm slightly complex cyst susp ected cortex left kidney inferiorly. The urinary bladder is incompletely distended without gross abnormality seen. IMPRESSION: 19 mm nonobstructing right renal stone. Slightly complicated 10 mm cyst cortex left kidney. Follow-up renal sonography would be advised in 6 months.
--- NOTE | 2018-09-08 10:39 | EKG ---
Test Date: 2018-09-07 Test Time: 18:36:54 Physician Anesthesiologist: BRIANT MEASUREMENT RESULTS: Intervals: Rate: 58 OH: 160 QRSD: 84 QT: 394 QTc: 386 [place]: P: 22 OH: 160 QRS: 6 T: 36 INTERPRETIVE STATEMENTS: Sinus bradycardia Otherwise normal ECG Compared to ECG 08/08/2018 16:40:31 Sinus rhythm no longer present ST (T wave) deviation no longer present Possible ischemia no longer present Electronically Signed On 09-08-18 10:38:17 CDT by Christoph Houser
--- NOTE | 2018-09-08 11:19 | ECHO ---
HEIGHT: 4 ft 11 in WEIGHT: 147 lb 12.8 oz DATE OF STUDY: 09/08/[address]: Tramaine Ko DO 2-DIMENSIONAL: YES M.MODE: YES DOPPLER: YES COLOR FLOW: YES TDS: NO PORTABLE: NO DEFINITY: NO BUBBLE STUDY: NO DIAGNOSIS: CHEST PAIN CARDIAC HISTORY: CATHERIZATION: NO SURGERY: NO PROSTHETIC VALVE: NO PACEMAKER: NO MEASUREMENTS (cm) DIASTOLIC (NORMALS) SYSTOLIC (NORMALS) IVSd 1.0 (0.6-1.2) LA Diam 3.5 (1.9-4.0) LVEF 57% LVIDd 4.7 (3.5-5.7) LVIDs 3.3 (2.0-3.5) %FS 30% LVPWd 1.0 (0.6-1.2) Ao Diam 2.7 (2.0-3.7) 2 DIMENSIONAL ASSESSMENT: RIGHT ATRIUM: NORMAL LEFT ATRIUM: NORMAL RIGHT VENTRICLE: NORMAL LEFT VENTRICLE: NORMAL TRICUSPID VALVE: NORMAL MITRAL VALVE: NORMAL PULMONIC VALVE: NORMAL AORTIC VALVE: NORMAL PERICARDIAL EFFUSION: NONE AORTIC ROOT: NORMAL LEFT VENTRICULAR WALL MOTION: NORMAL. DOPPLER/COLOR FLOW: NORMAL. COMMENTS: NORMAL 2D ECHOCARDIOGRAM WITH DOPPLER. NO WALL MOTION ABNORMALITIES. NO EFFUSION. TECHNOLOGIST: CARLOS DAS RDCS
[2018-09-08 12:20] VITALS: BP 118/58; TEMP 97.5
[2018-09-08 15:08] VITALS: O2SAT 93
--- NOTE | 2018-09-08 15:55 | P.SSS ---
Patient History Date of Service: 09/08/18 Primary Care Provider: Dr. Pino; Cardiology-Dr. Houser Reason for admission: Chest pain History of Present Illness: 78-year-old female presented to the emergency room with chest pain. Patient reported substernal chest pain over the last several days. Pain would come and go. Pain would also occur at rest. Patient with history of diabetes, hypertension, CAD, chronic atrial fibrillation without chronic anti coagulation therapy, and history of prior [place]. She reports having a stent done 2 years ago with similar chest pain. She tried to get get in to see her Finished Cloth Examiner but was not able to. She came to the ER for further evaluation. Patient was recently hospitalized last month for pancreatitis related to choledocholithiasis. She was sent to [place] for ERCP. Since that time she reports no abdominal pain. It was noted at that time based on a CT scan that there was a 15 x 11 mm stone to the right renal pelvis with mild hydronephrosis. In the ER patient was evaluated. Blood pressure stable at 140 5/55. Initial troponin unremarkable. BNP unremarkable. Lipase unremarkable. Calcium at 10.6. White count 8.0, hemoglobin 12. Sodium 139, potassium 4.8. BUN of 21, creatinine 1.8 with a GFR 26. Glucose 163. Patient stabilized and admitted for further evaluation. When I saw the patient ER, she appeared stable. Chest pain resolved. Patient reports no prior history of kidney disease. Patient takes Lasix and losartan. Allergies codeine Adverse Reaction (Mild, Verified 05/03/16 12:51) Rash propoxyphene HCl [From Darvon] Adverse Reaction (Verified 05/03/16 12:51) Rash Home Medications: glipiZIDE [Glucotrol*] 5 mg PO BID 10/17/15 Atorvastatin Calcium [Lipitor] 40 mg PO BEDTIME 05/03/16 Aspirin [Adult Aspirin Regimen] 81 mg PO DAILY 08/07/18 Losartan Potassium 100 mg PO DAILY 08/07/18 Metoprolol Tartrate [Lopressor*] 100 mg PO BID 08/07/18 Melatonin 5 mg PO BEDTIME PRN PRN 09/08/18 - Past Medical/Surgical History Has patient received pneumonia vaccine in the past: Yes Diabetic: Yes -: Diabetes mellitus type 2, non insulin dependent -: Chronic neck pain with chronic headaches -: HTN -: History of CAD/stent -: hyperlipidemia -: Diabetic neuropathy -: Hysterectomy -: Bladder suspension x3 -: Cholecystectomy -: Heart catheterization with stent -: ERCP with removal of stone Psychosocial/ Personal History: Patient is . She has no children - Family History Family History: Reviewed- Non-Contributory - Family History Father -: Heart disease Brother -: Heart disease - Social History Smoking Status: Never smoker Alcohol use: No CD- Drugs: No Caffeine use: Yes Place of Residence: Home Review of Systems 10-point ROS is otherwise unremarkable Physical Examination - Vital Signs Temperature: 97.5 F Blood Pressure: 118/58 Pulse: 51 Respirations: 20 Pulse Ox (%): 93 - Physical Exam General: Alert, In no apparent distress HEENT: Atraumatic, PERRLA, Mucous membr. moist/pink, EOMI, Sclerae nonicteric Neck: Supple, 2+ carotid pulse no bruit, No LAD, Without JVD or thyroid abnormality Respiratory: Clear to auscultation bilaterally, Normal air movement Cardiovascular: Regular rate/rhythm, Normal S1 S2 Gastrointestinal: Normal bowel sounds, No tenderness Musculoskeletal: No tenderness Integumentary: No rashes Neurological: Normal gait, Normal speech, Normal strength at 5/5 x4 extr, Normal tone, Normal affect Lymphatics: No axilla or inguinal lymphadenopathy - Studies Laboratory Data (last 24 hrs) 09/07/18 19:40: WBC 8.0, Hgb 12.0, Hct 37.3, Plt Count 212 09/07/18 18:57: PT 11.9, INR 1.01 09/07/18 18:57: Sodium 139, Potassium 4.8, BUN 21 H, Creatinine 1.88 H, Glucose 163 H, Magnesium 2.3, Total Bilirubin 0.2, AST 28, ALT 21, Alkaline Phosphatase 108, Lipase 325 - Diagnosis (Problem(s)) (1) Chest pain Status: Acute Qualifiers: Chest pain type: unspecified Qualified Code(s): R07.9 - Chest pain, unspecified (2) Hypertension Onset Date: 02/26/16 Status: Chronic Qualifiers: Hypertension type: essential hypertension (3) Coronary artery disease Status: Chronic Qualifiers: Coronary Disease-Associated Artery/Lesion type: [place] artery [place] vs. transplanted heart: [place] heart Associated angina: without angina Qualified Code(s): I25.10 - Atherosclerotic heart disease of [place] coronary artery without angina pectoris (4) Diabetes mellitus Status: Chronic Qualifiers: Diabetes mellitus type: type 2 Diabetes mellitus intermediate card tender insulin use: with assisted use Diabetes mellitus complication status: without complication Qualified Code(s): E11.9 - Type 2 diabetes mellitus without complications; Z79.4 - longterm (current) use of insulin (5) Hypertension Status: Chronic Qualifiers: Hypertension type: essential hypertension Qualified Code(s): I10 - Essential (primary) hypertension Treatment Summary: Overall during the hospital stay patient remained stable Patient was initially admitted to the hospital for chest pain ACS rule out. Patient was started on ACS medication while here in the hospital. Patient patient seen by a press manager here in the hospital who cleared her for discharge after echocardiogram was within normal limits. Patient will be having outpatient stress test done per cardiology's recommendations. Patient demonstrate understanding and thus was discharged home under stable condition - Disposition Disposition: ROUTINE DISCHARGE Condition: GOOD Diet: Regular Activity: Ad christina
--- NOTE | 2018-09-08 19:49 | CON ---
Date of Consultation: 09/08/2018 Reason For Consultation: Elevated BUN and creatinine. History Of Present Illness: This is a pleasant 78-year-old female with a significant past medical hi story of diabetes, complicated with neuropathy; coronary artery disease, status post PTCA; AFib; hype rlipidemia; bladder suspension. Patient was in her regular state of health. Patient came to the [facility] because she started having chest tightness without any palpitations. No nausea. No vomiting. Patient recently was admitted for pancreatitis, secondary to her hydrochlorothiazide, treated, teresa wiggins. At that time, patient had acute kidney injury secondary to prerenal, recovered after hydration . This time, patient came to the hospital, found to have normal blood pressure, marginal hypercalcem ia with an elevated creatinine 1.8 and decline in her GFR. For that reason, we have been consulted. Patient was started on IV hydration. Kidney function started improving, creatinine today down to 1. 5. Patient reviewing the record in the last admission, creatinine upon discharge 0.6 with a normal G FR of 85. Patient denied taking any nonsteroidal, no IV contrast. Allergies: CODEINE AND PROPOXYPHENE. Home Medications: Include omeprazole, gabapentin, atorvastatin, aspirin, Lasix, losartan, and metopr olol. Family History: Positive for coronary artery disease, hypertension. Social History: Denies smoking. Denies drinking. Denies drug abuse. Review of Systems: Head and Neck: No red eye. No ear pain. GI: Has abdominal pain. : No polyuria, no dysuria. No hematuria. Event Executive: No vaginal discharge. Respiratory: No shortness of breath. Cardiovascular: Had chest tightness. Endocrine: No polydipsia. Skin: No rash. Neuro: Has neuropathy. Musculoskeletal: No joint pain. Physical Examination: Vital Signs: When I saw the patient, blood pressure of 118/58, pulse of 51. Chest: Clear to auscultation. Heart: S1, S2. Regular. Abdomen: Soft, nontender. Extremities: No edema. Laboratory Data: Sodium 141, potassium 4.8, bicarb 26, BUN 18, creatinine 1.5, calcium 9.7, magnesiu m 2.1. WBC of 6.9, H and H 11.3/33.9, and platelets of 171. Current Medications: The patient is on include; 1.Aspirin. 2.Atorvastatin. 3.Lovenox. 4.Pepcid. 5.Lorazepam. 6.Metoprolol. 7.Pantoprazole. Assessment And Plan: 1.Acute kidney injury, normal size kidney, secondary to prerenal, superimposed with calcium diuresis secondary to hypercalcemia. CK was trending down. We will continue to monitor. 2.Nephrolithiasis, nonobstructing kidney stone, 19 mm on the right side. Will follow up as outpatie nt. 3.Renal cyst, stable, complicated. Needs Urology followup. 4.Hypertension, controlled, optimal. Please keep holding ARAM inhibitor or ARB given the acute kidne y injury for the time being. The same for the Lasix. SHAMAR/GUME Voice ID: [id number] Report ID: [id number]
[2018-09-09] MEDS ORDERED: ENOXAPARIN 30 MG/0.3 ML SQ SCH (09:00)
--- NOTE | 2018-09-09 10:17 | CON ---
Date of Consultation: 09/08/2018 The patient was admitted to Dr. Calderon's service on 09/07/2018. I saw the patient on 09/08/2018. Reason For Consultation: Chest pain. History Of Present Illness: Ms. Puri is a 78-year-old woman. She has had a history of CAD, status post stent in [address] [facility]. She has a history of atrial fibrillation that has resolved. She has a history of diabetes, hypertension, dyslipidemia. Came in with chest pain in the midepigas tric region radiating to the back with some nausea. No diaphoresis. No shortness of breath. No PND . She denied any orthopnea, pedal edema, palpitation, or syncope. By the time I saw her, she has ru led out for an MN already. She had a normal EKG, normal chest x-ray. Her last catheterization in [facility] 2016 was normal without any evidence of coronary artery disease at all. As a matter of fact, I d id not see any stent or any stenosis at that time. She has already had an echocardiogram today that was normal. Past Medical History: Negative. Allergies: CODEINE AND NAPROSYN. Review of Systems: Negative. Social History: Negative. Family History: Negative. Medications: At home include; aspirin, Lipitor, lisinopril, metoprolol, and Glucotrol. Physical Examination: Vital Signs: Stable. She was afebrile. HEENT: Negative. Neck: Supple with no bruit. Chest: Clear. Cardiac: Revealed a regular rhythm and rate. No murmurs, gallops, or rubs. Abdomen: Benign. Extremities: Reveals no cyanosis, clubbing, or edema. Skin was dry and intact. Pulses were present bilaterally symmetrically. Neurological: She was nonfocal. Diagnostic Data: Chest x-ray was normal. Troponin was negative. BNP was negative. Her chest x-ray was negative. Her creatinine is 1.59 and glucose is 159. Impression And Plan: 1.Atypical chest pain in a patient with history of coronary artery disease, has already ruled out fo r a myocardial infarction. She is asymptomatic right now. Echocardiogram is normal. BNP is normal. Her troponin is negative. We can certainly arrange for an outpatient stress test. Our stress test machine is broken for now. She can go home whenever it is okay with Dr. Calderon. 2.Renal insufficiency, stage III. 3.Diabetes. 4.Hypertension. 5.Dyslipidemia. 6.History of atrial fibrillation that has resolved. I will continue her present regimen for now. H er last catheterization was in 2016. DAKOTAH/GUME Voice ID: [id number] Report ID: [id number]
== END 2018-09-08 13:30 | disposition home or self-care (01) ==
LOC: ER 18:24 → 4TH 20:37
PROVIDERS: ADMIT Family Medicine; ATTEND Family Medicine
DX: R07.89 Other chest pain (principal); I25.10 Atherosclerotic heart disease of native coronary artery without angina pectoris; I48.2 Chronic atrial fibrillation; E11.22 Type 2 diabetes mellitus with diabetic chronic kidney disease; I12.9 Hypertensive chronic kidney disease with stage 1 through stage 4 chronic kidney disease, or unspecified chronic kidney disease; N18.3 Chronic kidney disease, stage 3 (moderate); E11.40 Type 2 diabetes mellitus with diabetic neuropathy, unspecified; I25.2 Old myocardial infarction; E78.5 Hyperlipidemia, unspecified; N20.0 Calculus of kidney; N28.1 Cyst of kidney, acquired; R00.1 Bradycardia, unspecified; Z79.82 Long term (current) use of aspirin; Z79.84 Long term (current) use of oral hypoglycemic drugs; Z79.899 Other long term (current) drug therapy; Z95.5 Presence of coronary angioplasty implant and graft; Z87.442 Personal history of urinary calculi
CPT/HCPCS: 96361; 93005; 93306; 85025 ×2; 80048 ×2; 36415; 83735 ×2; 82550 ×2; 85610; 80061; 82962 ×3; 80076; 84443; 84484 ×3; 82553 ×2; 84439; 83690; 83880; 71045; 76770; 96372; 96374; 99285; J1650 ×2; J7030; J2405; G0378 ×2

== ENCOUNTER 2018-09-24 19:21 | Emergency (ER) | payer OTHER ==
--- OUTSIDE RECORDS SUMMARY | 2018-09-24 19:24 | XMS REPORT | Clinical Summary ---
:1940 [facility] [address] [place] [address] Care Team Providers Name Role Phone Roscoe Pino Primary Care Provider Allergies Active Allergy Reactions [...] 2 (two) times daily for 60 days. omeprazole Take 40 mg by 0 [...] 08/18/2018 Discontinued 20 MG tablet mouth daily. amLODIPine Take 1 tablet 30 tablet 0 08/19/2018 09/18/2018 (NORVASC) 10 MG (10 mg total) tablet by mouth daily for 30 days. hydrALAZINE Take 1 tablet 90 tablet 0 08/18/2018 09/17/2018 (APRESOLINE) 100 (100 mg MG tablet total) by mouth every 8 (eight) hours for 30 days. isosorbide Take 1 tablet 30 tablet 0 08/19/2018 09/18/2018 mononitrate (30 mg total) (IMDUR) 30 MG 24 by mouth hr tablet daily for 30 days. metoprolol Take 1 tablet 60 tablet 0 08/18/2018 09/17/2018 (TOPROL-XL) 100 MG (100 mg 24 hr tablet total) by mouth 2 (two) times daily for 30 days. Active Problems Problem Noted Date Choledocholithiasis 08/10/2018 [...] Anesthesia Event Gastroenterology Chance Duque MD 08/10/2018 [facility] Internal [facility] [place], [facility] Acute encephalopathy; - Encounter Medicine MD Opal Acute respiratory failure with hypoxemia (HCC); 08/18/2018 [place], Choledocholithiasis; Shira Morgan MD Encounter for screening for diabetes mellitus; Serena Nephrolithiasis; MD Lili Retroperitoneal hematoma; Coronary artery disease due to lipid rich plaque; Acute pancreatitis, unspecified complication status, unspecified pancreatitis type; Gallstones; Atrial fibrillation, unspecified type (HCC); Type 2 diabetes mellitus with hyperglycemia, without long-term current use of insulin ([facility]); Essential hypertension; Metabolic encephalopathy; Sleep apnea with cognitive complaints; 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[facility]); Severe muscle deconditioning; Atrial fibrillation with RVR ([facility]) 08/10/2018 Travel 08/10/2018 Telephone Internal Medicine Idris Joseph Abdominal Pain MD Opal 08/08/2018 Telephone Internal Medicine Kassy Jurado MD 08/07/2018 Telephone Internal Medicine Idris Joseph Abdominal Pain MD Opal after 09/23/2017 Immunizations Name Dates Previously Given Next Due [...] Not on file Implants Implanted Type Area Water Treatment Operator Device Shelf Model / Identifier Expiration Serial / Date Lot Device Clsr Angio-Seal Vip 6fr [id number] - [id number] Cardiovascular N/A: Groin [facility] [employer]ANG 11/16/2016 [id number] / Implanted: Qty: 1 on 03/21/2016 by Miguel Ángel Chaudhry MD MED: CARDIAC / SURG [id number] Synergy Stents-Coronary N/A: [place] 01/15/2017 [id number] / Implanted: Qty: 1 on 03/21/2016 by Miguel Ángel Chaudhry MD Coronary SCIENTIFIC / [id number] Procedures Procedure Name Priority Date/Time Associated Comments [...] CDT procedure are in the results section. TREADMILL Routine 08/17/2018 12:00 Results for this TOLERANCE(NON-NUCLEAR PM CDT procedure are in TREADMILL) the results section. POCT-GLUCOSE METER Routine 08/17/2018 [...] procedure are in the results section. after 09/23/2017 Results RHYTHM STRIP - SCAN (08/19/2018 11:40 AM CDT)Only the most recent of2 resultswithin the time period is included. Narrative Performed At EKG-SCANNED (08/19/2018 11:40 AM CDT) Narrative Performed At US Renal with Doppler (08/18/2018 4:03 PM CDT) Specimen Narrative Performed At FINAL REPORT [employer] Renal ultrasound and Duplex Doppler ultrasound of [...] MD Report Verified Date/Time:08/18/2018 16:58:13 Reading Location: [address] Radiology Reading Room Procedure Note Interface, [...] Report Verified Date/Time: 08/18/2018 16:58:13 Reading Location: [address] Radiology Reading Room Performing Organization Address City/State/Zipcode Phone Number [employer] 2000 POC-Glucose meter (08/18/2018 7:41 AM CDT)Only the most recent of29 resultswithin the time period is included. POC-Glucose Meter 141 (H)Comment: TESTED AT 70 - 110 mg/dL [facility] [address] [facility] [address] Specimen Blood Performing Organization Address City/[facility]/Zipcode Phone Number [address] [address] [place] CBC (Hemogram only) (08/18/2018 5:01 AM CDT)Only the most recent of7 resultswithin the time period is included. WBC 11.7 (H) 3.5 - 10.5 K/L [facility] RBC 3.29 (L) 3.93 - 5.22 M/L [facility] Hemoglobin 10.4 (L) 11.2 - 15.7 GM/DL [facility] Hematocrit 31.8 (L) 34.1 - 44.9 % [facility] MCV 96.7 (H) 79.4 - 94.8 fL [facility] MCH 31.6 25.6 - 32.2 pg [facility] MCHC 32.7 32.2 - 35.5 GM/DL [facility] RDW 16.6 (H) 11.7 - 14.4 % [facility] Platelets 175 150 - 450 K/CU MM [facility] MPV 11.4 9.4 - 12.3 fL [facility] nRBC 0 0 - 0 /100 WBC [facility] Specimen Blood Performing Organization Address City/[facility]/Zipcode Phone Number [address] [address] CENTER Magnesium (08/18/2018 5:01 AM CDT)Only the most recent of8 resultswithin the time period is included. Magnesium 1.9 1.6 - 2.6 mg/dL [facility] Specimen Blood Performing Organization Address City/[facility]/Zipcode Phone Number [facility] [address] [address] [place] Hepatic function panel (08/18/2018 5:01 AM CDT)Only the most recent of8 resultswithin the time period is included. Protein, Total 5.4 (L) 6.0 - 8.3 gm/dL [facility] Albumin 2.9 (L) 3.5 - 5.0 g/dL [facility] Total Bilirubin 0.4 0.2 - 1.2 mg/dL [facility] Bilirubin, Direct 0.2 0.1 - 0.5 mg/dL [facility] Alkaline Phosphatase 73 40 - 150 U/L [facility] AST 20 5 - 34 U/L [facility] ALT 17 6 - 55 U/L [facility] Specimen Blood Performing Organization Address City/[place] Phone Number [address] [address] [place] Basic Metabolic Panel (08/18/2018 5:01 AM CDT)Only the most recent of8 resultswithin the time period is included. Sodium 134 (L) 136 - 145 meq/L [facility] Potassium 4.2 3.5 - 5.1 meq/L [facility] Chloride 103 98 - 107 meq/L [facility] CO2 28 22 - 29 meq/L [facility] BUN 12 7 - 21 mg/dL [facility] Creatinine 0.74 0.57 - 1.25 mg/dL [facility] Glucose 124 (H) 70 - 105 mg/dL [facility] Calcium 9.9 8.4 - 10.2 mg/dL [facility] EGFR 76Comment: ESTIMATED GFR IS mL/min/1.73 sq m [facility] NOT ACCURATE [facility] CLEARANCE IN PREDICTING GLOMERULAR FILTRATION RATE. ESTIMATED GFR IS NOT APPLICABLE FOR DIALYSIS PATIENTS. Specimen Blood Performing Organization Address City/State/Zipcode Phone Number [facility] [address] [place] [address] CENTER NM myocardial perfusion PET (rest and stress) (08/17/2018 2:17 PM CDT) Specimen Narrative Performed At FINAL REPORT [email or web address] PROCEDURE: MYOCARDIAL PERFUSION PET IMAGING (Rest/Stress) CPT CODE: 62907 INDICATION: Define extent of known CAD, chest [...] MD Report Verified Date/Time:08/17/2018 15:22:38 Reading Location: [address] Reading Room Procedure Note Interface, External Ris In - 08/17/2018 3:24 PM CDT FINAL REPORT PROCEDURE: MYOCARDIAL PERFUSION PET IMAGING (Rest/Stress) CPT CODE: 54633 INDICATION: Define extent of known CAD, chest [...] Report Verified Date/Time: 08/17/2018 15:22:38 Reading Location: [address] Reading Room Performing Organization Address City/State/Zipcode Phone Number GE RIS Treadmill tolerance(Non-Nuclear Treadmill) (08/17/2018 12:00 PM CDT) Specimen Narrative Performed At Protocol Name Regadenoson GE MUSE Time In Exercise Phase 00:01:00 Max. Systolic BP 104 mmHg Max Diastolic BP 33 mmHg Max Heart Rate 71 BPM Max Predicted Heart Rate 141 BPM Reason For Termination Predetermined end point Reason for Test exclude ischemia Target HR Formula (220 - Age)*100% Arrhythmias none Resting ECG sinus bradycardia Nonspecific ST and T wave abnormality ST Changes <1mm ST DEPRESSION Anterolateral Overall Impression Indeterminate due to pharmacological stress Chest Pain none HR Response To Exercise BP Response To Exercise asa, apresoline, atorvastatin, duonebs losartan, metoprolol, norvasc Confirmed by fellow Bladimir Bee ([id number]) on 08/17/2018 2:32:36 PM Confirmed by MD TEE JORGE ([id number]) on 09/24/2018 2:05:23 PM Procedure Note Interface, External Ris In - 09/24/2018 2:05 PM CDT Protocol Name Regadenoson Time In Exercise Phase 00:01:00 Max. Systolic BP 104 mmHg Max Diastolic BP 33 mmHg Max Heart Rate 71 BPM Max Predicted Heart Rate 141 BPM Reason For Termination Predetermined end point Reason for Test exclude ischemia Target HR Formula (220 - Age)*100% Arrhythmias none Resting ECG sinus bradycardia Nonspecific ST and T wave abnormality ST Changes <1mm ST DEPRESSION Anterolateral Overall Impression Indeterminate due to pharmacological stress Chest Pain none HR Response To Exercise BP Response To Exercise asa, apresoline, atorvastatin, duonebs losartan, metoprolol, norvasc Confirmed by fellow Bladimir Bee ([id number]) on 08/17/2018 2:32:36 PM Confirmed by MD TEE JORGE ([id number]) on 09/24/2018 2:05:23 PM Performing Organization Address City/State/Zipcode Phone Number GE MUSE CBC with platelet count + automated diff (08/16/2018 12:56 PM CDT)Only the most recent of2 resultswithin the time period is included. WBC 12.9 (H) 3.5 - 10.5 K/L [facility] RBC 3.74 (L) 3.93 - 5.22 M/L [facility] Hemoglobin 11.6 11.2 - 15.7 GM/DL [facility] Hematocrit 35.0 34.1 - 44.9 % [facility] MCV 93.6 79.4 - 94.8 fL [facility] MCH 31.0 25.6 - 32.2 pg [facility] MCHC 33.1 32.2 - 35.5 GM/DL [facility] RDW 16.0 (H) 11.7 - 14.4 % [facility] Platelets 165 150 - 450 K/CU MM [facility] MPV 10.1 9.4 - 12.3 fL [facility] nRBC 0 0 - 0 /100 WBC [facility] % Neutros 84 % [facility] % Lymphs 7 % [facility] % Monos 7 % [facility] % Eos 2 % [facility] % Baso 0 % [facility] # Neutros 10.89 (H) 1.56 - 6.13 K/L [facility] # Lymphs 0.90 (L) 1.18 - 3.74 K/L [facility] # Monos 0.84 (H) 0.24 - 0.36 K/L [facility] # Eos 0.20 0.04 - 0.36 K/L [facility] # Baso 0.05 0.01 - 0.08 K/L [facility] Immature 1 0 - 1 % [facility] Granulocytes-[facility] CENTER Specimen Blood Performing Organization Address City/State/Zipcode Phone Number [facility] [address] [place] [address] CENTER Comprehensive metabolic panel (08/16/2018 12:56 PM CDT) Protein, Total 5.4 (L) 6.0 - 8.3 gm/dL [facility] Albumin 2.9 (L) 3.5 - 5.0 g/dL [facility] Alkaline Phosphatase 86 40 - 150 U/L [facility] Total Bilirubin 0.4 0.2 - 1.2 mg/dL [facility] Sodium 135 (L) 136 - 145 meq/L [facility] Potassium 3.7 3.5 - 5.1 meq/L [facility] Chloride 102 98 - 107 meq/L [facility] CO2 28 22 - 29 meq/L [facility] BUN 10 7 - 21 mg/dL [facility] Creatinine 0.83 0.57 - 1.25 mg/dL [facility] Glucose 150 (H) 70 - 105 mg/dL [facility] Calcium 10.0 8.4 - 10.2 mg/dL [facility] AST 25 5 - 34 U/L [facility] ALT 23 6 - 55 U/L [facility] EGFR 66Comment: ESTIMATED GFR mL/min/1.73 sq m [facility] IS NOT ACCURATE [facility] CREATININE CLEARANCE IN PREDICTING GLOMERULAR FILTRATION RATE. ESTIMATED GFR IS NOT APPLICABLE FOR DIALYSIS PATIENTS. Specimen Blood Performing Organization Address City/State/Zipcode Phone Number [facility] [address] [place] [address] [phone] CENTER REPORT OF PROCEDURE - ENDOSCOPY URL (08/15/2018 5:30 PM CDT) Narrative Performed At [place] ERCP (08/15/2018 4:55 PM CDT) Specimen Narrative Performed At FINAL REPORT [facility] Fluoroscopy, less than 1 hour History:ERCP Comparison: none Findings: Fluoroscopic assistance was provided during ERCP.Fluoroscopic images taken were interpreted by the referring clinician.Please see separate procedure note for full details. Total Fluoroscopy time: 79.2 seconds Number of fluoroscopic images obtained: Four Impression: Fluoroscopy assistance as described above. Signed: Enio Ley MD Report Verified Date/Time:08/15/2018 17:37:26 Reading Location: [facility] C0X Ortho Consult Reading Room Procedure Note Interface, [...] Report Verified Date/Time: 08/15/2018 17:37:26 Reading Location: [facility] C013X Ortho Consult Reading Room Performing Organization Address City/State/Zipcode Phone Number GE RIS Tissue Exam (08/15/2018 4:52 PM CDT) Case Report Surgical Pathology Report Case: [id number] [facility] Authorizing Provider:Roddy Bernardected: 08/15/[address] [place] [address] Ordering Location: [address] Received: 08/17/2018 0800 Service Pathologist: Joanne Gu MD Specimens: A) - Duodenal, ULCERS BX B) - Biopsy, Gastric, BX DIAGNOSIS This final report is issued to give the result of immunohistochemical study for Helicobacter pylori on specimen B: [facility] A. DUODENUM, ULCERS, ENDOSCOPIC BIOPSY: - SEVERE [...] MALIGNANCY NOTED Signing Pathologist Direct Phone Line: [phone] CPT Code(s) 46529 X 2; 54832; [address]223 [facility] CLINICAL HISTORY Common bile duct stones [facility] SPECIMEN SOURCE A. Duodenal ulcers biopsy; B. [facility] Biopsy, gastric biopsy [facility] GROSS DESCRIPTION The case is received in two parts both labeled with the patient's name, Judy Calhoun, date of 1940 and accession number [id number] which corresponds to accompanying requisition page labeled with the same name and accession number. [facility] Part A is received in formalin labeled [...] in cassette B1. RP/pl MICROSCOPIC DESCRIPTION PERFORMED [facility] SPECIAL STUDIES The interpretation of this case included the use of immunohistochemistry or special stains. [facility] WARTHIN-STARRY; HELICOBACTER PYLORI [facility] Control Slides Examined: In-house known positive controls were evaluated along with the test tissue. These control slides run alongside of the patients sample show appropriate staining. Internal posit emily and negative controls when available are evaluated Immunohistochemistry technical testing was performed at [facility], Pathology Laboratory where it [...] (specimen) Performing Organization Address City/State/Zipcode Phone Number [place] [id number] [place] [address] [phone] brain without IV contrast (08/12/2018 11:55 AM CDT) Specimen Narrative Performed At FINAL REPORT [employer] CT, BRAIN, WITHOUT CONTRAST CLINICAL INDICATION:Confusion/delirium, altered [...] MD Report Verified Date/Time:08/12/2018 12:57:37 Reading Location: [facility] [place] Reading Room Procedure Note Interface, External Ris [...] Report Verified Date/Time: 08/12/2018 12:57:37 Reading Location: [facility] Radiology Reading Room Performing Organization Address City/State/Zipcode Phone Number [employer] 2000 CT abdomen/pelvis without & with IV contrast (08/12/2018 11:55 AM CDT) Specimen Narrative Performed At FINAL REPORT [facility] CT abdomen and pelvis without and with [...] MD Report Verified Date/Time:08/12/2018 13:32:12 Reading Location: [facility] Diagnostic Imaging Reading Room - [place] [address] Procedure Note Interface, External Ris In - [...] Report Verified Date/Time: 08/12/2018 13:32:12 Reading Location: [facility] Diagnostic Imaging Reading Room - [place] [address] Performing Organization Address City/State/Zipcode Phone Number RIS Lactic acid, venous (08/12/2018 4:36 AM CDT)Only the most recent of2 resultswithin the time period is included. Lactate, Venous 0.9Comment: Specimen 0.5 - 2.2 mmol/L [facility] slightly hemolyzed [facility] Specimen Blood Performing Organization Address City/[facility]/Zipcode Phone Number [address] [address] CENTER Folate, RBC (08/12/2018 4:36 AM CDT) Folate, Rbc >1000 >280 ng/mL RBC [facility] Specimen Blood Narrative Performed At Performing Lab [facility] EZ [facility] [address] [place] [address] Jerica Cooney MD, PhD, JACKIE Performing Organization Address City/[facility] Phone Number [facility] [place] [address] [facility] Vitamin B12 (08/12/2018 4:35 AM CDT) Vitamin B12 1,063 (H) 213 - 816 pg/mL [facility] Specimen Blood Performing Organization Address [facility] Phone Number [address] [address] [phone] CENTER Troponin I (08/12/2018 12:51 AM CDT)Only the most recent of3 resultswithin the time period is included. Troponin I 0.02 0.00 - 0.03 ng/mL [facility] Specimen Blood Narrative Performed At Troponin I (TnI) levels must be interpreted [facility] in the context of the presenting symptoms [...] disease, and persistent tachyarrhythmia. Performing Organization Address [facility] Phone Number [address] [address] [place] ECHOCARDIOGRAM REPORT - SCAN (08/11/2018 9:11 PM CDT) Narrative Performed At Procalcitonin (08/11/2018 8:46 PM CDT) Procalcitonin <0.05 <0.05 ng/mL [facility] Specimen Blood Narrative Performed At SEPSIS RISK (ng/mL) [facility] Low:0.05-0.50 Intermediate: 0.51-2.00 High: >=2.01 Performing Organization Address [facility] Phone Number [place] [phone] [place] [address] CENTER ECG 12 lead (08/11/2018 3:42 PM CDT)Only the most recent of2 resultswithin the time period is included. Specimen Narrative Performed At Ventricular Rate 71 BPM GE MUSE Atrial Rate 71 BPM P-R Interval 140 ms QRS Duration 78 ms Q-T Interval 326 ms QTC Calculation(Bazett) 354 ms P [place] 1 degrees R [place] 31 degrees T [place] 124 degrees Normal sinus rhythm Nonspecific ST [...] 326 ms QTC Calculation(Bazett) 354 ms P [place] 1 degrees R [place] 31 degrees T [place] 124 degrees Normal sinus rhythm Nonspecific ST and T wave abnormality Abnormal ECG When compared with ECG of 10-AUG-2018 16:46, No significant change was found Confirmed by Nicole OROZCO MICHAEL ([id number]) on 08/12/2018 8:00:23 AM Performing Organization Address [facility] Phone Number [employer] XR abdomen / KUB 1 view (08/11/2018 10:50 AM CDT) Specimen Narrative Performed At FINAL REPORT [employer] CLINICAL HISTORY: abdominal pain TECHNIQUE: Supine abdomen COMPARISON: CT 03/21/2016 IMPRESSION: The bowel gas pattern is nonspecific. Free air and air-fluid levels are not seen but cannot be definitively excluded on the supine view. Right upper quadrant surgical clips are again seen. Right lower abdominal hernia repair mesh is again seen. Signed: Ken Bunn MD Report Verified Date/Time:08/11/2018 11:42:12 Reading Location: [facility] Radiology Reading Room Procedure Note Interface, [...] Report Verified Date/Time: 08/11/2018 11:42:12 Reading Location: [facility] Radiology Reading Room Performing Organization Address City/[facility] Phone Number [facility] POCT-HEMATOCRIT (08/11/2018 9:36 AM CDT) POC-Hematocrit 34 (L)Comment: TESTED AT 36 - 45 % [address] [address] Specimen Blood Performing Organization Address [facility] Phone Number [address] [phone] [place] POCT-HEMOGLOBIN (08/11/2018 9:36 AM CDT) POC-Hemoglobin 11.6 (L)Comment: TESTED AT 12.0 - 15.0 g/dL [address] [address]X[place]FS[place] AT [address] [address] Specimen Blood Performing Organization Address [facility] Phone Number [address] [phone] [place] POCT-GLUCOSE (08/11/2018 9:36 AM CDT) POC-Glucose 165 (H)Comment: TESTED AT 70 - 110 mg/dL [address] [address] Specimen Blood Performing Organization Address [facility] Phone Number [address] [id number] [phone] CENTER POC-Sodium (08/11/2018 9:36 AM CDT) POC-Sodium 142Comment: TESTED AT [facility] 135 - 148 meq/L [address] [address] Specimen Blood Performing Organization Address City/[facility]/Zipcode Phone Number [address] [address] [phone] [place] POC-Potassium (08/11/2018 9:36 AM CDT) POC-Potassium 3.6Comment: TESTED AT [facility] 3.6 - 5.5 meq/L [address] [address] Specimen Blood Performing Organization Address City/[facility]/Zipcode Phone Number [address] [address] [place] POC-Calcium ionized (08/11/2018 9:36 AM CDT) POC-Calcium Ionized 1.50 (H)Comment: 1.12 - 1.27 mmol/L [facility] TESTED AT [address] [address] Specimen Blood Performing Organization Address City/[facility] Phone Number [address] [address] [place] POC-Blood gases, venous (08/11/2018 9:36 AM CDT) Temp. Celsius-POC 36.9 [facility] FIO2-POC 28Comment: TESTED AT [address] [address] pH, Venous-POC 7.344 7.320 - 7.420 [facility] PCO2, Venous-POC 48.8 41.0 - 51.0 mm Hg [facility] PO2, Venous-POC 36.0 25.0 - 40.0 mm Hg [facility] SO2, Venous-POC 66.0 40.0 - 70.0 % [facility] HCO3, Venous-POC 26.6 21.0 - 29.0 meq/L [facility] BE, Venous-POC 1.0 -2.0 - 3.0 meq/L [facility] Specimen Blood Performing Organization Address City/[facility]/Zipcode Phone Number [address] [phone] [place] POC-Lactic Acid, Venous (08/11/2018 9:32 AM CDT) POC-Lactic Acid, Venous 0.9Comment: TESTED AT 0.9 - 1.7 mmol/L [address] [address] Specimen Blood Performing Organization Address [facility] Phone Number [address] [address] [phone] [place] Urinalysis w/Microscopic + Reflex to Culture (08/11/2018 7:48 AM CDT) Color, UA Yellow [facility] Clarity, UA Clear [facility] Specific [place], UA 1.012 1.001 - 1.035 [facility] pH, UA 6.0 5.0 - 8.0 [facility] Protein, UA 10 mg/dL (A) Negative [facility] Glucose, UA 50 mg/dL (A) Negative [facility] Ketones, UA 20 mg/dL (A) Negative [facility] Bilirubin, UA Negative Negative [facility] Blood, UA Moderate (A) Negative [facility] Nitrite, UA Negative Negative [facility] Leukocytes, UA Negative Negative [facility] Urobilinogen, UA 0.2 0.2 - 1.0 mg/dL [facility] RBC, UA 105 /HPF [facility] WBC, UA 2 /HPF [facility] Specimen Source [facility] Specimen Urine Performing Organization Address City/[facility]/Zipcode Phone Number [facility] [address] [place] [address] [place] Blood Culture - Routine (Right Venipuncture) (08/11/2018 12:25 AM CDT)Only the most recent of2 resultswithin the time period is included. Result No growth in 5 days [facility] Specimen Blood Performing Organization Address City/[facility]/Zipcode Phone Number [address] [address] [place] Lipase (08/11/2018 12:24 AM CDT) Lipase 23 8 - 78 U/L [facility] Specimen Blood Performing Organization Address [facility] Phone Number [address] [address] [place] XR chest 1 view portable / bedside [...] MD Report Verified Date/Time:08/10/2018 23:47:27 Reading Location: [facility] C013W Consult Reading Room Procedure Note Interface, [...] Report Verified Date/Time: 08/10/2018 23:47:27 Reading Location: [facility] B1 C013W Consult Reading Room Performing Organization Address City/State/Zipcode Phone Number [facility] TSH/Free T4 If Indicated (08/10/2018 7:00 PM CDT) TSH 0.30 (L) 0.35 - 4.94 uIU/mL [facility] Specimen Blood Performing Organization Address City/[facility] Phone Number [address] [address] [phone] CENTER T4, free (08/10/2018 7:00 PM CDT) Free T4 0.86 0.70 - 1.48 ng/dL [facility] Specimen Blood Performing Organization Address [facility] Phone Number [address] [address] [phone] CENTER Ammonia (08/10/2018 7:00 PM CDT) Ammonia 29 18 - 72 mol/L [facility] Specimen Blood Performing Organization Address [facility] Phone Number [address] [address] CENTER PT/aPTT (08/10/2018 5:44 PM CDT) Protime 14.8 (H) 11.9 - 14.2 seconds [facility] INR 1.2 <=5.9 [facility] PTT 30.3 22.5 - 36.0 seconds [facility] Specimen Blood Narrative Performed At Effective 07/15/2018: PT Reference Range [facility] Change New: 11.9-14.2Previous: 11.7-14.7 RECOMMENDED COUMADIN/WARFARIN INR THERAPY RANGES STANDARD DOSE: 2.0-3.0Includes: PROPHYLAXIS for venous thrombosis, systemic embolization; TREATMENT for venous thrombosis and/or pulmonary embolus. HIGH RISK: Target INR is 2.5-3.5 for patients wiht mechanical heart valves. Performing Organization Address City/[facility]/Zipcode Phone Number [address] [address] [phone] CENTER Hemoglobin A1c (08/10/2018 5:44 PM CDT) Hemoglobin A1C 7.5 (H) 4.3 - 6.1 % [facility] Specimen Blood Performing Organization Address [facility] Phone Number [address] [address] CENTER B-type Natriuretic Factor (BNP) (08/10/2018 5:43 PM CDT) BNP 876 (H) 0 - 100 pg/mL [facility] Specimen Blood Performing Organization Address [facility] Phone Number [address] [address] [place] 2D Echo W/Doppler(CW/PW/Color) (08/10/2018 4:59 PM CDT) Ejection Fraction [facility] Specimen Narrative Performed At Transthoracic Echocardiography Report (TTE) [facility] Demographics Patient Name JUDY CALHOUN Date of Study 08/10/2018 [id number] GenderFemale Visit Number [id number] RaceUnknown [id number] m Number [id number] Number Date of Birth1940 Referring Physician Shira Person Age78 year(s) Mission Analyst Charlene Vega [facility] Karan Phillip MD RD Physician Procedure Type of Study TTE procedure:2DECHO [...] of Study 08/10/2018 Gender Female Visit Number [id number] Race Unknown Room Number 722 Number Date of 1940 Referring Physician Shira Person Age 78 year(s) Mission Analyst Charleneerma Vega [facility] Roadway Technician Ivonne Brown, Interpreting Stevie Santoro MD [facility] Physician Procedure Type of Study TTE procedure:2DECHO [...] Performing Organization Address City/State/Zipcode Phone Number [facility] CPACS after 09/23/2017 Insurance Payer Benefit Plan / Group Subscriber ID Type Phone Address [employer] xxxxxxxx Maps Contracted ([place]) [place] [address] Advance Directives For more information, please contact:[address] [phone] Code Status Date Activated Date Inactivated Comments Full Code 08/10/2018 2:16 PM 08/18/2018 7:36 PM This code status was determined by: Patient Full Code 03/21/2016 6:40 PM 03/26/2016 4:41 PM This code status was determined by: Patient
--- OUTSIDE RECORDS SUMMARY | 2018-09-24 19:24 | XMS REPORT | Continuity of Care Document ---
:1940 Author Organization [facility] [employer] [place] Care Team Providers Name Role Phone [facility] Information [employer] Unavailable Unavailable Problems Problem Status Onset Classification Date Comments Source Date Reported M54.12 Active 10/02/19 [place] [address] [place] Diabetes Active Problem 10/16/2015 [facility] Diabetes Resolved Problem 10/16/2015 [facility] Gastric reflux Active Problem 10/16/2015 [facility] HTN - Resolved Problem 10/16/2015 [facility]ension [facility] Hypertension Active Problem 10/16/2015 [facility] RADICULOPATHY, Active [facility] CERVICAL REGION [place] Medications Medication Details Route Status Patient Ordering [...] 2015 [facility] ELECTROLYTES eGFR [address] [facility] 2015 Comment: The Ortho eGFR is [...] MYELOGRAM CT SCAN OF CERVICAL SPINE 10/13/2015 [facility] myelogram CT DATE: 10/13/2015 10:08 [...] arthrosis to the right with probable fusion. Aedi-be-pqsmzfgm right foraminal narrowing. C3-C4: Wvxx-gy-mzsfooke grade 1 degenerative anterolisthesis of C3 on C4 with a 4 -- 5 mm posterior broad-based disc osteophyte complex indenting ventral cord with posterior cord displacement there and mild central canal narrowing. Cord is mildly flattened. Facet arthrosis greater to the left with hypertrophy noted wyuf-mq-bzyjammn left and mild right foraminal narrowing. C4-C5: Slight degenerative retrolisthesis of C4 on C5 with a 3 -- 4 mm posterior disc osteophyte complex mildly compressing and flattening cord against prominent ligament flavum with mild to moderate ce ntral canal stenosis and mild cord flattening. Nkxw-pl-scdvsjaf bilateral foraminal narrowing secondary to facet and uncovertebral joint degeneration C5-C6: Mild degenerative retrolisthesis of C5 on C6 with a 4 -- 5 mm posterior disc osteophyte complex compressing cord against posterior elements. There is lvtx-se-pzvwthok central canal stenosis with cord flattening there [...] above. Spine cervical EXAM: Cervical MYELOGRAM 10/13/2015 [facility] myelogram DX DATE: 10/13/2015 10:07 [...] with mild narrowing subarachnoid space. C3-C4 shows utkd-wv-aeydvddq ventral and mild dorsal extradural defects mildly encroaching upon ventral cord with artv-gi-awnzwhuf narrowing subarachnoid space C4-C5 shows moderate ventral [...] Type Number For Provider Date Date Visit [facility] Outpatient [id number] Fernie 09/28 09/29 [facility]opedic [facility] Spine Sp[facility] [id number] Fernie 10/12 10/13 [facility] Orthopedic and and Spine Spine [facility] Procedures Procedure Code Date Perfomer Comments Source Abdominal [id number] Ortho hysterectomy and Spine Cholecystectomy [id number] [facility] Excision of lesion of [id number] [facility] phalanges of foot and Spine Assessment and [...]
--- OUTSIDE RECORDS SUMMARY | 2018-09-24 19:25 | XMS REPORT ---
:1940 [facility] Address [address] [place] [address] Care Team Providers Name Role Phone RYAN [...] PATIENT ID: WITH DOPPLER 16:58:00 exam:->hypertensionShould this [id number] Renal be performed at the ultrasound and [...] MDReport Verified Date/Time: 08/18/2018 16:58:13 Reading Location: [address] Radiology Reading Room UE EXAM 2018-08-18 Surgical Pathology Report 14:09:00 Case: [id number] Authorizing Provider: Roddy Bernard Collected: 08/15/2018 1652 Ordering Location: [address] Received: 08/17/2018 0800 Service Pathologist: Joanne [...] MALIGNANCY NOTED Signing Pathologist Direct Phone Line: [phone] y signed by Joanne Gu MD on 08/18/2018 at 2:09 PMPreliminary result electronically signed by Joanne Gu MD on 08/17/2018 at 6:32 [id number] X 2; [id number]; [id number] bile duct stonesA. Duodenal ulcers biopsy; B. [...] evaluated Immunohistochemistry technical testing was performed at [facility], Pathology Laboratory where it was [...] (BEAKER) (test 141 mg/dL 70-110 TESTED AT [facility] [address] [facility] rdbc=2281) [facility] [address] [id number] 06:53:00 Test Item Value Reference Range Comments MAGNESIUM (BEAKER) (test pgki=886) 1.9 mg/dL 1.6-2.6 BASIC METABOLIC [id number] 06:53:00 Test Item Value Reference Range Comments SODIUM (BEAKER) (test 134 meq/L 136-145 hrwf=928) POTASSIUM (BEAKER) (test 4.2 meq/L 3.5-5.1 kflw=051) CHLORIDE (BEAKER) (test 103 meq/L 98-107 fogx=713) CO2 (BEAKER) (test 28 meq/L 22-29 wwcx=803) BLOOD UREA NITROGEN 12 mg/dL 7-21 (BEAKER) (test oitg=583) CREATININE (BEAKER) (test 0.74 mg/dL 0.57-1.25 vlbw=364) GLUCOSE RANDOM (BEAKER) 124 mg/dL 70-105 (test fzae=027) CALCIUM (BEAKER) (test 9.9 mg/dL 8.4-10.2 sqho=692) EGFR (BEAKER) (test 76 mL/min/1.73 sq m ESTIMATED GFR IS NOT omdo=4879) ACCURATE CREATININE CLEARANCE IN PREDICTING GLOMERULAR FILTRATION RATE. ESTIMATED GFR IS NOT APPLICABLE FOR DIALYSIS PATIENTS. HEPATIC FUNCTION [id number] 06:53:00 Test Item Value Reference Range Comments TOTAL PROTEIN (BEAKER) (test ucsm=399) 5.4 gm/dL 6.0-8.3 ALBUMIN (BEAKER) (test wkyp=2536) 2.9 g/dL 3.5-5.0 BILIRUBIN TOTAL (BEAKER) (test vtjp=926) 0.4 mg/dL 0.2-1.2 BILIRUBIN DIRECT (BEAKER) (test vmco=640) 0.2 mg/dL 0.1-0.5 ALKALINE PHOSPHATASE (BEAKER) (test gvdo=659) 73 U/L 40-150 AST (SGOT) (BEAKER) (test bbob=183) 20 U/L 5-34 ALT (SGPT) (BEAKER) (test lybm=185) 17 U/L 6-55 CBC (HEMOGRAM ONLY)2018-08-18 06:22:00 Test Item Value Reference Range Comments WHITE BLOOD CELL COUNT (BEAKER) (test fney=354) 11.7 K/ L 3.5-10.5 RED BLOOD CELL COUNT (BEAKER) (test hiqq=933) 3.29 M/ L 3.93-5.22 HEMOGLOBIN (BEAKER) (test zkgp=727) 10.4 GM/DL 11.2-15.7 HEMATOCRIT (BEAKER) (test anml=845) 31.8 % 34.1-44.9 MEAN CORPUSCULAR VOLUME (BEAKER) (test hmfw=788) 96.7 fL 79.4-94.8 MEAN CORPUSCULAR HEMOGLOBIN (BEAKER) (test 31.6 pg 25.6-32.2 zivz=175) MEAN CORPUSCULAR HEMOGLOBIN CONC (BEAKER) (test 32.7 GM/DL 32.2-35.5 qbch=755) RED CELL DISTRIBUTION WIDTH (BEAKER) (test 16.6 % 11.7-14.4 eilz=138) PLATELET COUNT (BEAKER) (test fpdn=575) 175 K/CU MM 150-450 MEAN PLATELET VOLUME (BEAKER) (test eugc=191) 11.4 fL 9.4-12.3 NUCLEATED RED BLOOD CELLS (BEAKER) (test 0 /100 WBC 0-0 yquy=943) POCT-GLUCOSE [id number] 23:08:00 Test Item Value Reference Range Comments POC-GLUCOSE METER (BEAKER) 163 mg/dL 70-110 TESTED AT [place] [id number] [facility] (test ydcw=6262) [place] [address] POCT-GLUCOSE [id number] 17:26:00 Test Item Value Reference Range Comments POC-GLUCOSE METER (BEAKER) 131 mg/dL 70-110 TESTED AT [address] (test qdnz=0977) [place] [address] PET, CARDIAC PERFUSION MULTIPLE STUDIES, REST AND [id number] 15:22: 00Reason for exam:->Exclude ischemiaFINAL REPORT PROCEDURE: MYOCARDIAL PERFUSION PET IMAGING (Rest/Stress)CPT CODE: 77228 INDICATION: Define extent of known CAD, chest [...] MDReport Verified Date/Time: 08/17/2018 15:22:38 Reading Location: [address] Reading Room POCT-GLUCOSE [id number] 13:27:00 Test Item Value Reference Range Comments POC-GLUCOSE METER (BEAKER) 130 mg/dL 70-110 TESTED AT [address] (test thai=6778) [facility] [address] CBC (HEMOGRAM ONLY)2018-08-17 07:52:00 Test Item Value Reference Range Comments WHITE BLOOD CELL COUNT (BEAKER) (test dowq=849) 10.6 K/ L 3.5-10.5 RED BLOOD CELL COUNT (BEAKER) (test hevz=392) 3.45 M/ L 3.93-5.22 HEMOGLOBIN (BEAKER) (test jaqe=668) 10.8 GM/DL 11.2-15.7 HEMATOCRIT (BEAKER) (test bgeg=511) 32.9 % 34.1-44.9 MEAN CORPUSCULAR VOLUME (BEAKER) (test nkwq=295) 95.4 fL 79.4-94.8 MEAN CORPUSCULAR HEMOGLOBIN (BEAKER) (test 31.3 pg 25.6-32.2 zzjk=360) MEAN CORPUSCULAR HEMOGLOBIN CONC (BEAKER) (test 32.8 GM/DL 32.2-35.5 zscm=392) RED CELL DISTRIBUTION WIDTH (BEAKER) (test 16.1 % 11.7-14.4 zajj=812) PLATELET COUNT (BEAKER) (test dxzf=673) 177 K/CU MM 150-450 MEAN PLATELET VOLUME (BEAKER) (test fbmx=327) 11.2 fL 9.4-12.3 NUCLEATED RED BLOOD CELLS (BEAKER) (test 0 /100 WBC 0-0 ajvi=942) [id number] 07:43:00 Test Item Value Reference Range Comments MAGNESIUM (BEAKER) (test sfat=619) 1.6 mg/dL 1.6-2.6 BASIC METABOLIC [id number] 07:43:00 Test Item Value Reference Range Comments SODIUM (BEAKER) (test 136 meq/L 136-145 ovwy=242) POTASSIUM (BEAKER) (test 3.6 meq/L 3.5-5.1 kzib=096) CHLORIDE (BEAKER) (test 102 meq/L 98-107 fwoo=397) CO2 (BEAKER) (test 29 meq/L 22-29 alin=351) BLOOD UREA NITROGEN 10 mg/dL 7-21 (BEAKER) (test eeot=915) CREATININE (BEAKER) (test 0.74 mg/dL 0.57-1.25 spxd=649) GLUCOSE RANDOM (BEAKER) 134 mg/dL 70-105 (test fprh=736) CALCIUM (BEAKER) (test 9.9 mg/dL 8.4-10.2 kezr=056) EGFR (BEAKER) (test 76 mL/min/1.73 sq m ESTIMATED GFR IS NOT pboy=3953) ACCURATE CREATININE CLEARANCE IN PREDICTING GLOMERULAR FILTRATION RATE. ESTIMATED GFR IS NOT APPLICABLE FOR DIALYSIS PATIENTS. HEPATIC FUNCTION [id number] 07:43:00 Test Item Value Reference Range Comments TOTAL PROTEIN (BEAKER) (test xmts=650) 5.2 gm/dL 6.0-8.3 ALBUMIN (BEAKER) (test jtdt=2905) 2.8 g/dL 3.5-5.0 BILIRUBIN TOTAL (BEAKER) (test uklq=338) 0.5 mg/dL 0.2-1.2 BILIRUBIN DIRECT (BEAKER) (test sstv=787) 0.3 mg/dL 0.1-0.5 ALKALINE PHOSPHATASE (BEAKER) (test ucwe=707) 76 U/L 40-150 AST (SGOT) (BEAKER) (test dnth=203) 21 U/L 5-34 ALT (SGPT) (BEAKER) (test pxei=727) 17 U/L 6-55 POCT-GLUCOSE [id number] 07:24:00 Test Item Value Reference Range Comments POC-GLUCOSE METER (BEAKER) 144 mg/dL 70-110 TESTED AT [facility] [address] [facility] (test acpy=7598) [facility] [address] POCT-GLUCOSE [id number] 23:39:00 Test Item Value Reference Range Comments POC-GLUCOSE METER (BEAKER) 159 mg/dL 70-110 TESTED AT [address] (test vxri=9383) [facility] [address] POCT-GLUCOSE [id number] 17:20:00 Test Item Value Reference Range Comments POC-GLUCOSE METER (BEAKER) 168 mg/dL 70-110 TESTED AT [address] (test whgy=0355) [facility] [address] COMPREHENSIVE METABOLIC [id number] 13:35:00 Test Item Value Reference Range Comments TOTAL PROTEIN (BEAKER) 5.4 gm/dL 6.0-8.3 (test nfqb=580) ALBUMIN (BEAKER) (test 2.9 g/dL 3.5-5.0 cluv=3604) ALKALINE PHOSPHATASE 86 U/L 40-150 (BEAKER) (test disk=537) BILIRUBIN TOTAL (BEAKER) 0.4 mg/dL 0.2-1.2 (test icke=872) SODIUM (BEAKER) (test 135 meq/L 136-145 ohzg=693) POTASSIUM (BEAKER) (test 3.7 meq/L 3.5-5.1 lfob=367) CHLORIDE (BEAKER) (test 102 meq/L 98-107 uqfp=963) CO2 (BEAKER) (test 28 meq/L 22-29 nwtz=288) BLOOD UREA NITROGEN 10 mg/dL 7-21 (BEAKER) (test nmdk=187) CREATININE (BEAKER) (test 0.83 mg/dL 0.57-1.25 wbqk=594) GLUCOSE RANDOM (BEAKER) 150 mg/dL 70-105 (test cuxy=732) CALCIUM (BEAKER) (test 10.0 mg/dL 8.4-10.2 yqwj=540) AST (SGOT) (BEAKER) (test 25 U/L 5-34 wcxh=032) ALT (SGPT) (BEAKER) (test 23 U/L 6-55 duub=370) EGFR (BEAKER) (test 66 mL/min/1.73 sq m ESTIMATED GFR IS NOT tkra=2911) ACCURATE CREATININE CLEARANCE IN PREDICTING GLOMERULAR FILTRATION RATE. ESTIMATED GFR IS NOT APPLICABLE FOR DIALYSIS PATIENTS. CBC W/PLT COUNT & AUTO [id number] 13:14:00 Test Item Value Reference Range Comments WHITE BLOOD CELL COUNT (BEAKER) (test bdub=679) 12.9 K/ L 3.5-10.5 RED BLOOD CELL COUNT (BEAKER) (test ogzz=254) 3.74 M/ L 3.93-5.22 HEMOGLOBIN (BEAKER) (test xhak=859) 11.6 GM/DL 11.2-15.7 HEMATOCRIT (BEAKER) (test ards=422) 35.0 % 34.1-44.9 MEAN CORPUSCULAR VOLUME (BEAKER) (test uyzt=202) 93.6 fL 79.4-94.8 MEAN CORPUSCULAR HEMOGLOBIN (BEAKER) (test 31.0 pg 25.6-32.2 uwml=287) MEAN CORPUSCULAR HEMOGLOBIN CONC (BEAKER) (test 33.1 GM/DL 32.2-35.5 kgkr=764) RED CELL DISTRIBUTION WIDTH (BEAKER) (test 16.0 % 11.7-14.4 cqqr=462) PLATELET COUNT (BEAKER) (test oxtb=816) 165 K/CU MM 150-450 MEAN PLATELET VOLUME (BEAKER) (test jcnc=187) 10.1 fL 9.4-12.3 NUCLEATED RED BLOOD CELLS (BEAKER) (test 0 /100 WBC 0-0 vyzg=043) NEUTROPHILS RELATIVE PERCENT (BEAKER) (test 84 % tkxm=326) LYMPHOCYTES RELATIVE PERCENT (BEAKER) (test 7 % kdpe=614) MONOCYTES RELATIVE PERCENT (BEAKER) (test 7 % ktfa=030) EOSINOPHILS RELATIVE PERCENT (BEAKER) (test 2 % uzbv=758) BASOPHILS RELATIVE PERCENT (BEAKER) (test 0 % iaso=938) NEUTROPHILS ABSOLUTE COUNT (BEAKER) (test 10.89 K/ L 1.56-6.13 aqay=641) LYMPHOCYTES ABSOLUTE COUNT (BEAKER) (test 0.90 K/ L 1.18-3.74 lxyt=501) MONOCYTES ABSOLUTE COUNT (BEAKER) (test 0.84 K/ L 0.24-0.36 clmi=287) EOSINOPHILS ABSOLUTE COUNT (BEAKER) (test 0.20 K/ L 0.04-0.36 teru=749) BASOPHILS ABSOLUTE COUNT (BEAKER) (test 0.05 K/ L 0.01-0.08 dqph=990) IMMATURE GRANULOCYTES-RELATIVE PERCENT (BEAKER) 1 % 0-1 (test icse=9353) POCT-GLUCOSE [id number] 12:12:00 Test Item Value Reference Range Comments POC-GLUCOSE METER (BEAKER) 154 mg/dL 70-110 TESTED AT [address] (test pviy=7694) [place] [address] BLOOD [id number] 08:00:00 Test Item Value Reference Range Comments CULTURE (BEAKER) (test ilzs=5437) No growth in 5 days BLOOD [id number] 08:00:00 Test Item Value Reference Range Comments CULTURE (BEAKER) (test wouv=6487) No growth in 5 days POCT-GLUCOSE [id number] 07:45:00 Test Item Value Reference Range Comments POC-GLUCOSE METER (BEAKER) 115 mg/dL 70-110 TESTED AT [address] (test lnae=4571) [place] [address] POCT-GLUCOSE [id number] 23:02:00 Test Item Value Reference Range Comments POC-GLUCOSE METER (BEAKER) 90 mg/dL 70-110 TESTED AT [address] (test rfgn=8403) [facility] [address] [place], [id number] 17:37:00INTRA OP IMAGINGReason for exam:->CBD STONESFINAL REPORT Fluoroscopy, less than 1 hour History:ERCP Comparison: none Findings:Fluoroscopic assistance was provided during ERCP. Fluoroscopic images taken were interpreted bythe referring clinician. Please see separate procedure note for full details. Total Fluoroscopy time: 79.2 seconds Number of fluoroscopic images obtained: Four Impression:Fluoroscopy assistance as described above. Signed: Enio Ley Verified Date/ Time: 08/15/2018 17:37:26 Reading Location: [address] Reading Room POCT-GLUCOSE [id number] 17:35:00 Test Item Value Reference Range Comments POC-GLUCOSE METER (BEAKER) 180 mg/dL 70-110 TESTED AT [facility] [address] [facility] (test unbv=4636) [facility] [address] POCT-GLUCOSE [id number] 07:57:00 Test Item Value Reference Range Comments POC-GLUCOSE METER (BEAKER) 129 mg/dL 70-110 TESTED AT [facility] [address] [facility] (test oint=9823) [facility] [address] [id number] 06:01:00 Test Item Value Reference Range Comments MAGNESIUM (BEAKER) (test pfom=421) 1.6 mg/dL 1.6-2.6 BASIC METABOLIC [id number] 06:01:00 Test Item Value Reference Range Comments SODIUM (BEAKER) (test 138 meq/L 136-145 pmtc=918) POTASSIUM (BEAKER) (test 3.8 meq/L 3.5-5.1 logm=123) CHLORIDE (BEAKER) (test 108 meq/L 98-107 wusq=543) CO2 (BEAKER) (test 25 meq/L 22-29 kupe=499) BLOOD UREA NITROGEN 7 mg/dL 7-21 (BEAKER) (test swur=953) CREATININE (BEAKER) (test 0.77 mg/dL 0.57-1.25 wren=751) GLUCOSE RANDOM (BEAKER) 123 mg/dL 70-105 (test wczk=541) CALCIUM (BEAKER) (test 10.0 mg/dL 8.4-10.2 bnax=900) EGFR (BEAKER) (test 72 mL/min/1.73 sq m ESTIMATED GFR IS NOT xjnu=5204) ACCURATE CREATININE CLEARANCE IN PREDICTING GLOMERULAR FILTRATION RATE. ESTIMATED GFR IS NOT APPLICABLE FOR DIALYSIS PATIENTS. HEPATIC FUNCTION [id number] 06:01:00 Test Item Value Reference Range Comments TOTAL PROTEIN (BEAKER) (test qwvd=779) 5.4 gm/dL 6.0-8.3 ALBUMIN (BEAKER) (test ezts=6019) 2.9 g/dL 3.5-5.0 BILIRUBIN TOTAL (BEAKER) (test utnn=507) 0.5 mg/dL 0.2-1.2 BILIRUBIN DIRECT (BEAKER) (test hlqf=583) 0.3 mg/dL 0.1-0.5 ALKALINE PHOSPHATASE (BEAKER) (test vdiz=616) 92 U/L 40-150 AST (SGOT) (BEAKER) (test kljp=129) 33 U/L 5-34 ALT (SGPT) (BEAKER) (test oyzq=453) 30 U/L 6-55 CBC (HEMOGRAM ONLY)2018-08-15 04:44:00 Test Item Value Reference Range Comments WHITE BLOOD CELL COUNT (BEAKER) (test nphu=625) 11.8 K/ L 3.5-10.5 RED BLOOD CELL COUNT (BEAKER) (test madp=439) 3.97 M/ L 3.93-5.22 HEMOGLOBIN (BEAKER) (test tgha=642) 12.6 GM/DL 11.2-15.7 HEMATOCRIT (BEAKER) (test wyop=809) 37.4 % 34.1-44.9 MEAN CORPUSCULAR VOLUME (BEAKER) (test pqvv=827) 94.2 fL 79.4-94.8 MEAN CORPUSCULAR HEMOGLOBIN (BEAKER) (test 31.7 pg 25.6-32.2 jhdu=148) MEAN CORPUSCULAR HEMOGLOBIN CONC (BEAKER) (test 33.7 GM/DL 32.2-35.5 jviu=531) RED CELL DISTRIBUTION WIDTH (BEAKER) (test 15.8 % 11.7-14.4 acqt=118) PLATELET COUNT (BEAKER) (test wqyd=346) 189 K/CU MM 150-450 MEAN PLATELET VOLUME (BEAKER) (test mdmk=173) 10.7 fL 9.4-12.3 NUCLEATED RED BLOOD CELLS (BEAKER) (test 0 /100 WBC 0-0 xoxc=171) POCT-GLUCOSE [id number] 23:38:00 Test Item Value Reference Range Comments POC-GLUCOSE METER (BEAKER) 137 mg/dL 70-110 TESTED AT [address] (test nxmh=5888) [facility] [address] POCT-GLUCOSE [id number] 12:13:00 Test Item Value Reference Range Comments POC-GLUCOSE METER (BEAKER) 159 mg/dL 70-110 TESTED AT [address] (test rcsa=4474) [facility] [address] POCT-GLUCOSE [id number] 08:11:00 Test Item Value Reference Range Comments POC-GLUCOSE METER (BEAKER) 138 mg/dL 70-110 TESTED AT [facility] [address] (test aapr=5648) [place] [address] [id number] 06:01:00 Test Item Value Reference Range Comments MAGNESIUM (BEAKER) (test mpke=223) 1.7 mg/dL 1.6-2.6 BASIC METABOLIC [id number] 06:01:00 Test Item Value Reference Range Comments SODIUM (BEAKER) (test 138 meq/L 136-145 larx=690) POTASSIUM (BEAKER) (test 3.8 meq/L 3.5-5.1 pdwz=655) CHLORIDE (BEAKER) (test 109 meq/L 98-107 jokj=562) CO2 (BEAKER) (test 26 meq/L 22-29 hmhl=476) BLOOD UREA NITROGEN 10 mg/dL 7-21 (BEAKER) (test ykib=753) CREATININE (BEAKER) (test 0.80 mg/dL 0.57-1.25 xkbh=316) GLUCOSE RANDOM (BEAKER) 106 mg/dL 70-105 (test ygek=944) CALCIUM (BEAKER) (test 9.4 mg/dL 8.4-10.2 jujz=259) EGFR (BEAKER) (test 69 mL/min/1.73 sq m ESTIMATED GFR IS NOT bfhn=5728) ACCURATE CREATININE CLEARANCE IN PREDICTING GLOMERULAR FILTRATION RATE. ESTIMATED GFR IS NOT APPLICABLE FOR DIALYSIS PATIENTS. HEPATIC FUNCTION [id number] 06:01:00 Test Item Value Reference Range Comments TOTAL PROTEIN (BEAKER) (test ebgb=484) 5.4 gm/dL 6.0-8.3 ALBUMIN (BEAKER) (test bzvw=1961) 2.9 g/dL 3.5-5.0 BILIRUBIN TOTAL (BEAKER) (test jeuk=980) 0.5 mg/dL 0.2-1.2 BILIRUBIN DIRECT (BEAKER) (test pjyx=612) 0.4 mg/dL 0.1-0.5 ALKALINE PHOSPHATASE (BEAKER) (test hgfy=530) 105 U/L 40-150 AST (SGOT) (BEAKER) (test yimn=042) 33 U/L 5-34 ALT (SGPT) (BEAKER) (test waiv=732) 31 U/L 6-55 CBC (HEMOGRAM ONLY)2018-08-14 05:10:00 Test Item Value Reference Range Comments WHITE BLOOD CELL COUNT (BEAKER) (test zmyo=092) 10.6 K/ L 3.5-10.5 RED BLOOD CELL COUNT (BEAKER) (test bbbk=680) 3.87 M/ L 3.93-5.22 HEMOGLOBIN (BEAKER) (test iamn=243) 12.0 GM/DL 11.2-15.7 HEMATOCRIT (BEAKER) (test axbx=617) 36.9 % 34.1-44.9 MEAN CORPUSCULAR VOLUME (BEAKER) (test oyzg=591) 95.3 fL 79.4-94.8 MEAN CORPUSCULAR HEMOGLOBIN (BEAKER) (test 31.0 pg 25.6-32.2 txrn=438) MEAN CORPUSCULAR HEMOGLOBIN CONC (BEAKER) (test 32.5 GM/DL 32.2-35.5 pnfm=303) RED CELL DISTRIBUTION WIDTH (BEAKER) (test 15.7 % 11.7-14.4 royu=697) PLATELET COUNT (BEAKER) (test gqmw=148) 158 K/CU MM 150-450 MEAN PLATELET VOLUME (BEAKER) (test jqxw=245) 11.0 fL 9.4-12.3 NUCLEATED RED BLOOD CELLS (BEAKER) (test 0 /100 WBC 0-0 vtdd=418) POCT-GLUCOSE [id number] 23:53:00 Test Item Value Reference Range Comments POC-GLUCOSE METER (BEAKER) 115 mg/dL 70-110 TESTED AT [address] (test wruf=7343) [facility] [address] POCT-GLUCOSE [id number] 16:48:00 Test Item Value Reference Range Comments POC-GLUCOSE METER (BEAKER) 83 mg/dL 70-110 TESTED AT [address] (test cpuu=4617) [facility] [address] POCT-GLUCOSE [id number] 13:19:00 Test Item Value Reference Range Comments POC-GLUCOSE METER (BEAKER) 102 mg/dL 70-110 TESTED AT [address] (test ftjz=5599) [facility] [address] POCT-GLUCOSE [id number] 12:02:00 Test Item Value Reference Range Comments POC-GLUCOSE METER (BEAKER) 95 mg/dL 70-110 TESTED AT [facility] [address] [facility] (test ntgz=7752) [facility] [address] POCT-GLUCOSE [id number] 07:22:00 Test Item Value Reference Range Comments POC-GLUCOSE METER (BEAKER) 109 mg/dL 70-110 TESTED AT [facility] [address] [facility] (test wyga=6519) [facility] [address] [id number] 04:31:00 Test Item Value Reference Range Comments MAGNESIUM (BEAKER) (test 1.7 mg/dL 1.6-2.6 Specimen slightly hemolyzed dwwe=267) BASIC METABOLIC [id number] 04:31:00 Test Item Value Reference Range Comments SODIUM (BEAKER) (test 140 meq/L 136-145 wmal=776) POTASSIUM (BEAKER) (test 3.6 meq/L 3.5-5.1 Specimen slightly lsyw=928) hemolyzed CHLORIDE (BEAKER) (test 111 meq/L 98-107 ztfm=524) CO2 (BEAKER) (test 24 meq/L 22-29 opnt=902) BLOOD UREA NITROGEN 12 mg/dL 7-21 (BEAKER) (test ggkz=343) CREATININE (BEAKER) (test 0.79 mg/dL 0.57-1.25 Specimen slightly fegq=233) hemolyzed GLUCOSE RANDOM (BEAKER) 110 mg/dL 70-105 (test xyay=956) CALCIUM (BEAKER) (test 9.5 mg/dL 8.4-10.2 gffg=882) EGFR (BEAKER) (test 70 mL/min/1.73 sq m ESTIMATED GFR IS NOT wpct=8119) ACCURATE CREATININE CLEARANCE IN PREDICTING GLOMERULAR FILTRATION RATE. ESTIMATED GFR IS NOT APPLICABLE FOR DIALYSIS PATIENTS. HEPATIC FUNCTION [id number] 04:31:00 Test Item Value Reference Range Comments TOTAL PROTEIN (BEAKER) (test 5.2 gm/dL 6.0-8.3 Specimen slightly hemolyzed zopq=531) ALBUMIN (BEAKER) (test 2.7 g/dL 3.5-5.0 Specimen slightly hemolyzed olmv=2907) BILIRUBIN TOTAL (BEAKER) (test 0.7 mg/dL 0.2-1.2 Specimen slightly hemolyzed qtfx=652) BILIRUBIN DIRECT (BEAKER) (test 0.3 mg/dL 0.1-0.5 Specimen slightly hemolyzed hove=385) ALKALINE PHOSPHATASE (BEAKER) 118 U/L 40-150 (test pkst=053) AST (SGOT) (BEAKER) (test 52 U/L 5-34 Specimen slightly hemolyzed mktm=924) ALT (SGPT) (BEAKER) (test 43 U/L 6-55 Specimen slightly hemolyzed trns=051) CBC (HEMOGRAM ONLY)2018-08-13 03:56:00 Test Item Value Reference Range Comments WHITE BLOOD CELL COUNT (BEAKER) (test uepq=632) 9.7 K/ L 3.5-10.5 RED BLOOD CELL COUNT (BEAKER) (test xwhe=179) 3.51 M/ L 3.93-5.22 HEMOGLOBIN (BEAKER) (test goww=278) 11.0 GM/DL 11.2-15.7 HEMATOCRIT (BEAKER) (test lrtf=846) 33.1 % 34.1-44.9 MEAN CORPUSCULAR VOLUME (BEAKER) (test cumk=406) 94.3 fL 79.4-94.8 MEAN CORPUSCULAR HEMOGLOBIN (BEAKER) (test 31.3 pg 25.6-32.2 mgji=010) MEAN CORPUSCULAR HEMOGLOBIN CONC (BEAKER) (test 33.2 GM/DL 32.2-35.5 hnrg=027) RED CELL DISTRIBUTION WIDTH (BEAKER) (test 15.3 % 11.7-14.4 xauu=435) PLATELET COUNT (BEAKER) (test lnoc=313) 128 K/CU MM 150-450 MEAN PLATELET VOLUME (BEAKER) (test fxtx=784) 11.1 fL 9.4-12.3 NUCLEATED RED BLOOD CELLS (BEAKER) (test 0 /100 WBC 0-0 lxtm=649) POCT-GLUCOSE [id number] 22:11:00 Test Item Value Reference Range Comments POC-GLUCOSE METER (BEAKER) 138 mg/dL 70-110 TESTED AT [address] (test ygfo=4875) [facility] [address] POCT-GLUCOSE [id number] 16:28:00 Test Item Value Reference Range Comments POC-GLUCOSE METER (BEAKER) 155 mg/dL 70-110 TESTED AT [address] (test lxen=2843) [facility] [address] CT, [id number] 13:32:00FINAL REPORT CT abdomen and pelvis without [...] MDReport Verified Date/Time: 08/12/2018 13:32:12 Reading Location: [facility] Diagnostic Imaging Reading Room - [place] [address] [address], BRAIN, WITHOUT [id number] 12:57:00FINAL REPORT CT, BRAIN, WITHOUT CONTRAST CLINICAL [...] Motta Verified Date/Time: 2018 12:57:37 Reading Location: [facility] Radiology Reading Room POCT -GLUCOSE [id number] 12:48:00 Test Item Value Reference Range Comments POC-GLUCOSE METER (BEAKER) 156 mg/dL 70-110 TESTED AT [address] (test jaxd=0619) [facility] [address] POCT-GLUCOSE [id number] 07:16:00 Test Item Value Reference Range Comments POC-GLUCOSE METER (BEAKER) 157 mg/dL 70-110 TESTED AT [address] (test tcwf=1109) [facility] [address] VITAMIN [id number] 05:53:00 Test Item Value Reference Range Comments VITAMIN B12 (BEAKER) (test okhd=101) 1063 pg/mL 213-816 [id number] 05:27:00 Test Item Value Reference Range Comments MAGNESIUM (BEAKER) (test qmii=090) 1.7 mg/dL 1.6-2.6 BASIC METABOLIC [id number] 05:27:00 Test Item Value Reference Range Comments SODIUM (BEAKER) (test 140 meq/L 136-145 klyv=180) POTASSIUM (BEAKER) (test 3.6 meq/L 3.5-5.1 liuz=060) CHLORIDE (BEAKER) (test 109 meq/L 98-107 kbis=191) CO2 (BEAKER) (test 27 meq/L 22-29 lvzy=796) BLOOD UREA NITROGEN 16 mg/dL 7-21 (BEAKER) (test xsnq=370) CREATININE (BEAKER) (test 0.88 mg/dL 0.57-1.25 qtoj=550) GLUCOSE RANDOM (BEAKER) 152 mg/dL 70-105 (test qavm=501) CALCIUM (BEAKER) (test 9.7 mg/dL 8.4-10.2 cqoe=303) EGFR (BEAKER) (test 62 mL/min/1.73 sq m ESTIMATED GFR IS NOT ctrr=9523) ACCURATE CREATININE CLEARANCE IN PREDICTING GLOMERULAR FILTRATION RATE. ESTIMATED GFR IS NOT APPLICABLE FOR DIALYSIS PATIENTS. HEPATIC FUNCTION [id number] 05:27:00 Test Item Value Reference Range Comments TOTAL PROTEIN (BEAKER) (test uaar=790) 5.9 gm/dL 6.0-8.3 ALBUMIN (BEAKER) (test wbpo=9960) 3.2 g/dL 3.5-5.0 BILIRUBIN TOTAL (BEAKER) (test fvee=801) 1.1 mg/dL 0.2-1.2 BILIRUBIN DIRECT (BEAKER) (test wrtb=931) 0.7 mg/dL 0.1-0.5 ALKALINE PHOSPHATASE (BEAKER) (test bych=314) 77 U/L 40-150 AST (SGOT) (BEAKER) (test ihvs=932) 26 U/L 5-34 ALT (SGPT) (BEAKER) (test shsf=314) 19 U/L 6-55 LACTIC ACID, [id number] 05:12:00 Test Item Value Reference Range Comments LACTATE BLOOD VENOUS (2) 0.9 mmol/L 0.5-2.2 Specimen slightly hemolyzed (BEAKER) (test phai=9264) CBC (HEMOGRAM ONLY)2018-08-12 05:00:00 Test Item Value Reference Range Comments WHITE BLOOD CELL COUNT (BEAKER) (test yxlk=845) 12.8 K/ L 3.5-10.5 RED BLOOD CELL COUNT (BEAKER) (test muzv=630) 3.82 M/ L 3.93-5.22 HEMOGLOBIN (BEAKER) (test jmju=264) 12.1 GM/DL 11.2-15.7 HEMATOCRIT (BEAKER) (test rluy=156) 36.4 % 34.1-44.9 MEAN CORPUSCULAR VOLUME (BEAKER) (test ksjv=310) 95.3 fL 79.4-94.8 MEAN CORPUSCULAR HEMOGLOBIN (BEAKER) (test 31.7 pg 25.6-32.2 vyms=413) MEAN CORPUSCULAR HEMOGLOBIN CONC (BEAKER) (test 33.2 GM/DL 32.2-35.5 tvbw=919) RED CELL DISTRIBUTION WIDTH (BEAKER) (test 15.3 % 11.7-14.4 edoa=645) PLATELET COUNT (BEAKER) (test qmhd=140) 154 K/CU MM 150-450 MEAN PLATELET VOLUME (BEAKER) (test lsuz=213) 11.0 fL 9.4-12.3 NUCLEATED RED BLOOD CELLS (BEAKER) (test 0 /100 WBC 0-0 hbxa=923) TROPONIN [id number] 01:40:00 Test Item Value Reference Range Comments TROPONIN I (BEAKER) (test nlti=105) 0.02 ng/mL 0.00-0.03 Troponin I (TnI) levels [...] acidosis, acute neurological disease, and persistent tachyarrhythmia.POCT-GLUCOSE [id number] 22:32:00 Test Item Value Reference Range Comments POC-GLUCOSE METER (BEAKER) 154 mg/dL 70-110 TESTED AT [facility] [address] [facility] (test zeev=7787) [facility] [address] [id number] 22:27:00 Test Item Value Reference Range Comments PROCALCITONIN (BEAKER) (test uhtz=9131) < ng/mL <0.05 SEPSIS RISK (ng/mL)Low: 0.05-0.50Intermediate: 0.51-2.00High: & gt;=2.01TROPONIN [id number] 18:31:00 Test Item Value Reference Range Comments TROPONIN I (BEAKER) (test hcag=873) 0.01 ng/mL 0.00-0.03 Troponin I (TnI) levels [...] acidosis, acute neurological disease, and persistent tachyarrhythmia.POCT-GLUCOSE [id number] 12:21:00 Test Item Value Reference Range Comments POC-GLUCOSE METER (BEAKER) 178 mg/dL 70-110 TESTED AT [address] (test wfhc=4323) [facility] [address] RAD, ABDOMEN/KUB, 1 VIEW [id number] 11:42:00Reason for exam:->abdominal painShould this be performed [...] mesh is again seen. Signed: Ken Bunn [facility] Verified Date/ Time: 08/11/2018 11:42:12 Reading Location: [facility] Radiology Reading Room POCT -BLOOD GASES, [id number] 09:41:00 Test Item Value Reference Range Comments TEMP, CELSIUS-POC (BEAKER) 36.9 (test dfgw=2826) FIO2-POC (BEAKER) (test 28 TESTED AT [address] wtfy=2715) [facility] [address] PH, VENOUS-POC (BEAKER) 7.344 7.320-7.420 (test kioh=2792) PCO2, VENOUS-POC (BEAKER) 48.8 mm Hg 41.0-51.0 (test rrvt=9662) PO2, VENOUS-POC (BEAKER) 36.0 mm Hg 25.0-40.0 (test pqys=3241) SO2, VENOUS-POC (BEAKER) 66.0 % 40.0-70.0 (test xdtj=9378) HCO3, VENOUS-POC (BEAKER) 26.6 meq/L 21.0-29.0 (test myat=7612) BASE EXCESS, VENOUS-POC 1.0 meq/L -2.0-3.0 (BEAKER) (test wics=1018) [id number] 09:41:00 Test Item Value Reference Range Comments POC-SODIUM (BEAKER) (test 142 meq/L 135-148 TESTED AT [address] yapa=0545) [place] [id number] 09:41:00 Test Item Value Reference Range Comments POC-POTASSIUM (BEAKER) (test 3.6 meq/L 3.6-5.5 TESTED AT [address] yqyq=8560) [place] [address] [id number] 09:41:00 Test Item Value Reference Range Comments POC-GLUCOSE (BEAKER) (test 165 mg/dL 70-110 TESTED AT [address] bxiw=8510) [place] [address] POCT-CALCIUM [id number] 09:41:00 Test Item Value Reference Range Comments POC-CALCIUM IONIZED (BEAKER) 1.50 mmol/L 1.12-1.27 TESTED AT [address] (test nuqh=8641) [place] [address] [id number] 09:41:00 Test Item Value Reference Range Comments POC-HEMATOCRIT (BEAKER) (test 34 % 36-45 TESTED AT [address] pkzj=8720) [place] [address] [id number] 09:41:00 Test Item Value Reference Range Comments POC-HEMOGLOBIN (BEAKER) 11.6 g/dL 12.0-15.0 TESTED AT [address] (test mnlh=5563) [place] [address]TESTED AT [place] [id number] POCT-LACTIC ACID, [id number] 09:41:00 Test Item Value Reference Range Comments POC-LACTIC ACID, VENOUS 0.9 mmol/L 0.9-1.7 TESTED AT [address] (BEAKER) (test jvgg=9329) [place] [id number] URINALYSIS W/ REFLEX URINE [id number] 09:28:00 Test Item Value Reference Range Comments COLOR (BEAKER) (test annn=877) Yellow CLARITY (BEAKER) (test pngy=834) Clear SPECIFIC GRAVITY UA (BEAKER) (test ojcz=344) 1.012 1.001-1.035 PH UA (BEAKER) (test vdvd=168) 6.0 5.0-8.0 PROTEIN UA (BEAKER) (test jggs=125) 10 mg/dL Negative GLUCOSE UA (BEAKER) (test tfvw=874) 50 mg/dL Negative KETONES UA (BEAKER) (test offu=163) 20 mg/dL Negative BILIRUBIN UA (BEAKER) (test zocg=486) Negative Negative BLOOD UA (BEAKER) (test jfgp=666) Moderate Negative NITRITE UA (BEAKER) (test gxan=822) Negative Negative LEUKOCYTE ESTERASE UA (BEAKER) (test wsfv=786) Negative Negative UROBILINOGEN UA (BEAKER) (test ngie=057) 0.2 mg/dL 0.2-1.0 RBC UA (BEAKER) (test psvu=209) 105 /HPF WBC UA (BEAKER) (test thee=121) 2 /HPF SOURCE(BEAKER) (test fqlq=8372) POCT-GLUCOSE [id number] 09:17:00 Test Item Value Reference Range Comments POC-GLUCOSE METER (BEAKER) 172 mg/dL 70-110 TESTED AT [facility] [address] [facility] (test gtla=0234) [facility] [address] [id number] 06:43:00 Test Item Value Reference Range Comments MAGNESIUM (BEAKER) (test wtwt=436) 1.7 mg/dL 1.6-2.6 BASIC METABOLIC [id number] 06:43:00 Test Item Value Reference Range Comments SODIUM (BEAKER) (test 140 meq/L 136-145 lrcp=843) POTASSIUM (BEAKER) (test 3.7 meq/L 3.5-5.1 grnx=176) CHLORIDE (BEAKER) (test 110 meq/L 98-107 hzbh=967) CO2 (BEAKER) (test 25 meq/L 22-29 hmlx=584) BLOOD UREA NITROGEN 16 mg/dL 7-21 (BEAKER) (test umot=659) CREATININE (BEAKER) (test 0.78 mg/dL 0.57-1.25 iuhi=866) GLUCOSE RANDOM (BEAKER) 163 mg/dL 70-105 (test zmcq=236) CALCIUM (BEAKER) (test 10.3 mg/dL 8.4-10.2 bfen=107) EGFR (BEAKER) (test 71 mL/min/1.73 sq m ESTIMATED GFR IS NOT rcju=4004) ACCURATE CREATININE CLEARANCE IN PREDICTING GLOMERULAR FILTRATION RATE. ESTIMATED GFR IS NOT APPLICABLE FOR DIALYSIS PATIENTS. HEPATIC FUNCTION [id number] 06:43:00 Test Item Value Reference Range Comments TOTAL PROTEIN (BEAKER) (test ismj=025) 5.8 gm/dL 6.0-8.3 ALBUMIN (BEAKER) (test kggn=6211) 3.2 g/dL 3.5-5.0 BILIRUBIN TOTAL (BEAKER) (test oorc=172) 1.1 mg/dL 0.2-1.2 BILIRUBIN DIRECT (BEAKER) (test hnwo=561) 0.7 mg/dL 0.1-0.5 ALKALINE PHOSPHATASE (BEAKER) (test xzcg=371) 76 U/L 40-150 AST (SGOT) (BEAKER) (test ktcr=100) 23 U/L 5-34 ALT (SGPT) (BEAKER) (test mfep=650) 20 U/L 6-55 CBC (HEMOGRAM ONLY)2018-08-11 05:56:00 Test Item Value Reference Range Comments WHITE BLOOD CELL COUNT (BEAKER) (test xqmw=436) 15.2 K/ L 3.5-10.5 RED BLOOD CELL COUNT (BEAKER) (test rsow=454) 3.68 M/ L 3.93-5.22 HEMOGLOBIN (BEAKER) (test iipd=608) 11.5 GM/DL 11.2-15.7 HEMATOCRIT (BEAKER) (test hukp=320) 35.4 % 34.1-44.9 MEAN CORPUSCULAR VOLUME (BEAKER) (test rfoo=335) 96.2 fL 79.4-94.8 MEAN CORPUSCULAR HEMOGLOBIN (BEAKER) (test 31.3 pg 25.6-32.2 ojcf=999) MEAN CORPUSCULAR HEMOGLOBIN CONC (BEAKER) (test 32.5 GM/DL 32.2-35.5 yyzf=824) RED CELL DISTRIBUTION WIDTH (BEAKER) (test 15.8 % 11.7-14.4 elto=312) PLATELET COUNT (BEAKER) (test cjqd=673) 139 K/CU MM 150-450 MEAN PLATELET VOLUME (BEAKER) (test tjjs=124) 11.3 fL 9.4-12.3 NUCLEATED RED BLOOD CELLS (BEAKER) (test 0 /100 WBC 0-0 oaho=854) TROPONIN [id number] 01:18:00 Test Item Value Reference Range Comments TROPONIN I (BEAKER) (test mmlr=002) 0.04 ng/mL 0.00-0.03 Troponin I (TnI) levels [...] failure, acidosis, acute neurological disease, and persistent tachyarrhythmia.[id number] 01:13:00 Test Item Value Reference Range Comments MAGNESIUM (BEAKER) (test icdu=584) 1.6 mg/dL 1.6-2.6 BASIC METABOLIC [id number] 01:13:00 Test Item Value Reference Range Comments SODIUM (BEAKER) (test 138 meq/L 136-145 kynd=750) POTASSIUM (BEAKER) (test 3.7 meq/L 3.5-5.1 vbev=209) CHLORIDE (BEAKER) (test 109 meq/L 98-107 ovvw=463) CO2 (BEAKER) (test 26 meq/L 22-29 jufl=796) BLOOD UREA NITROGEN 15 mg/dL 7-21 (BEAKER) (test aptx=456) CREATININE (BEAKER) (test 0.74 mg/dL 0.57-1.25 avqi=013) GLUCOSE RANDOM (BEAKER) 147 mg/dL 70-105 (test zzge=807) CALCIUM (BEAKER) (test 10.0 mg/dL 8.4-10.2 ncpu=125) EGFR (BEAKER) (test 76 mL/min/1.73 sq m ESTIMATED GFR IS NOT zloz=1283) ACCURATE CREATININE CLEARANCE IN PREDICTING GLOMERULAR FILTRATION RATE. ESTIMATED GFR IS NOT APPLICABLE FOR DIALYSIS PATIENTS. HEPATIC FUNCTION [id number] 01:13:00 Test Item Value Reference Range Comments TOTAL PROTEIN (BEAKER) (test okjt=991) 5.8 gm/dL 6.0-8.3 ALBUMIN (BEAKER) (test otww=0711) 3.1 g/dL 3.5-5.0 BILIRUBIN TOTAL (BEAKER) (test aqgr=235) 1.0 mg/dL 0.2-1.2 BILIRUBIN DIRECT (BEAKER) (test zsqr=586) 0.6 mg/dL 0.1-0.5 ALKALINE PHOSPHATASE (BEAKER) (test nooz=375) 75 U/L 40-150 AST (SGOT) (BEAKER) (test ebkc=992) 20 U/L 5-34 ALT (SGPT) (BEAKER) (test kwhg=212) 18 U/L 6-55 [id number] 01:13:00 Test Item Value Reference Range Comments LIPASE (BEAKER) (test jjos=380) 23 U/L 8-78 RAD, CHEST, 1 VIEW, NON [id number] 23:47:00Reason for exam:->piccShould this be performed at [...] MDReport Verified Date/Time: 08/10/2018 23:47:27 Reading Location: [address] Consult Reading Room POCT-GLUCOSE [id number] 23:29:00 Test Item Value Reference Range Comments POC-GLUCOSE METER (BEAKER) 158 mg/dL 70-110 TESTED AT [facility] [address] [facility] (test krbz=0976) [facility] [address] HEMOGLOBIN [id number] 22:17:00 Test Item Value Reference Range Comments HEMOGLOBIN A1C (BEAKER) (test iwzo=447) 7.5 % 4.3-6.1 T4, [id number] 20:54:00 Test Item Value Reference Range Comments FREE T4 (BEAKER) (test yfgs=211) 0.86 ng/dL 0.70-1.48 TSH/FREE T4 IF [id number] 20:22:00 Test Item Value Reference Range Comments THYROID STIMULATING HORMONE (BEAKER) (test 0.30 uIU/mL 0.35-4.94 hntd=818) [id number] 19:31:00 Test Item Value Reference Range Comments AMMONIA (BEAKER) (test ysmf=886) 29 mol/L 18-72 B-TYPE NATRIURETIC FACTOR (BNP)2018-08-10 18:48:00 Test Item Value Reference Range Comments B-TYPE NATRIURETIC PEPTIDE (BEAKER) (test 876 pg/mL 0-100 tjuh=000) LACTIC ACID, [id number] 18:47:00 Test Item Value Reference Range Comments LACTATE BLOOD VENOUS (2) 1.0 mmol/L 0.5-2.2 Specimen slightly hemolyzed (BEAKER) (test etbp=5381) POCT-GLUCOSE [id number] 18:30:00 Test Item Value Reference Range Comments POC-GLUCOSE METER (BEAKER) 149 mg/dL 70-110 TESTED AT [facility] [address] [facility] (test hkdn=6588) [facility] [address] [id number] 18:27:00 Test Item Value Reference Range Comments PROTIME (BEAKER) (test atjp=703) 14.8 seconds 11.9-14.2 INR (BEAKER) (test yqak=921) 1.2 <=5.9 PARTIAL THROMBOPLASTIN TIME (BEAKER) (test 30.3 seconds 22.5-36.0 jmok=302) Effective 07/15/2018: PT Reference Range ChangeNew: 11.9-14.2 Previous: 11.7- 14.7RECOMMENDED COUMADIN/WARFARIN INR THERAPY RANGESSTANDARD DOSE: 2.0-3.0 Includes: PROPHYLAXIS for venous thrombosis, systemic embolization; TREATMENT for venous thrombosis and/or pulmonary embolus.HIGH RISK: Target INR is2.5-3.5 for patients wiht mechanical heart valves.CBC W/PLT COUNT & AUTO [id number] 18:08:00 Test Item Value Reference Range Comments WHITE BLOOD CELL COUNT (BEAKER) (test zkdm=303) 15.4 K/ L 3.5-10.5 RED BLOOD CELL COUNT (BEAKER) (test qcnj=946) 3.77 M/ L 3.93-5.22 HEMOGLOBIN (BEAKER) (test ajbd=114) 11.8 GM/DL 11.2-15.7 HEMATOCRIT (BEAKER) (test uqof=703) 36.2 % 34.1-44.9 MEAN CORPUSCULAR VOLUME (BEAKER) (test ipor=596) 96.0 fL 79.4-94.8 MEAN CORPUSCULAR HEMOGLOBIN (BEAKER) (test 31.3 pg 25.6-32.2 tnqw=092) MEAN CORPUSCULAR HEMOGLOBIN CONC (BEAKER) (test 32.6 GM/DL 32.2-35.5 ryyh=228) RED CELL DISTRIBUTION WIDTH (BEAKER) (test 16.1 % 11.7-14.4 tbif=730) PLATELET COUNT (BEAKER) (test einl=505) 140 K/CU MM 150-450 MEAN PLATELET VOLUME (BEAKER) (test tebx=538) 11.0 fL 9.4-12.3 NUCLEATED RED BLOOD CELLS (BEAKER) (test 0 /100 WBC 0-0 dmps=342) NEUTROPHILS RELATIVE PERCENT (BEAKER) (test 82 % pbal=191) LYMPHOCYTES RELATIVE PERCENT (BEAKER) (test 8 % lmlm=722) MONOCYTES RELATIVE PERCENT (BEAKER) (test 8 % himm=093) EOSINOPHILS RELATIVE PERCENT (BEAKER) (test 0 % tuqf=919) BASOPHILS RELATIVE PERCENT (BEAKER) (test 0 % rczy=791) NEUTROPHILS ABSOLUTE COUNT (BEAKER) (test 12.69 K/ L 1.56-6.13 scdj=562) LYMPHOCYTES ABSOLUTE COUNT (BEAKER) (test 1.24 K/ L 1.18-3.74 gcde=420) MONOCYTES ABSOLUTE COUNT (BEAKER) (test 1.21 K/ L 0.24-0.36 iagy=253) EOSINOPHILS ABSOLUTE COUNT (BEAKER) (test 0.02 K/ L 0.04-0.36 eqgg=943) BASOPHILS ABSOLUTE COUNT (BEAKER) (test 0.04 K/ L 0.01-0.08 civj=178) IMMATURE GRANULOCYTES-RELATIVE PERCENT (BEAKER) 2 % 0-1 (test euqs=9612)
[2018-09-24] MEDS ORDERED: MORPHINE 4 MG/ML SYR ONE (20:12)
[2018-09-24] MEDS ORDERED: ONDANSETRON 4 MG/2 ML VIAL ONE ×2 (20:12→21:47)
[2018-09-24 20:37] LABS: Absolute Lymphocytes (CBC) 1.9 K/uL (0.7-4.9); Basophils % 0.7 % (0-1.3); Hematocrit 37.3 % (36.0-45.0); Lymphocytes % 21.3 % (15.3-44.8); MPV 8.7 fL (7.6-11.3); RBC Red Blood Cell Count 3.89 M/uL (3.86-4.86)
[2018-09-24 20:52] LABS: Albumin 3.2 g/dL (3.4-5.0); Bilirubin Total 0.3 mg/dL (0.2-1.0); Potassium 4.2 mmol/L (3.5-5.1); Protein, Total 7.4 g/dL (6.4-8.2)
[2018-09-24] MEDS ORDERED: KETOROLAC 30 MG/ML INJ ONE (22:43)
[2018-09-25 00:22] LABS: Urine Bacteria 20-50 /HPF (<20); Urine Culture Reflex Order NOT NEEDED
--- NOTE | 2018-09-25 00:42 | ER ---
Nurse's Notes [facility] Name: Judy Puri Age: 78 yrs Sex: Female : 1940 Arrival Date: 09/24/2018 Time: 19:22 Bed 26 Private MD: Roscoe Pino E Diagnosis: Abdominal and pelvic pain;Acute cystitis Presentation: 09/24 19:27 Presenting complaint: Patient states: Reports lower abdominal pain N/V/D that started ph today. Transition of care: patient was not received from another setting of care. Onset of symptoms was September 24, 2018. Risk Assessment: Do you want to hurt yourself or someone else? Patient reports no desire to harm self or others. Initial Sepsis Screen: Does the patient meet any 2 criteria? No. Patient's initial sepsis screen is negative. Does the patient have a suspected source of infection? No. Patient's initial sepsis screen is negative. Care prior to arrival: None. 19:27 Method Of Arrival: Wheelchair ph 19:27 Acuity: JONATHAN 3 ph Triage Assessment: 19:29 General: Appears in no apparent distress. uncomfortable, Behavior is calm, cooperative, ph appropriate for age. Pain: Complains of pain in right lower quadrant and left lower quadrant. Neuro: Level of Consciousness is awake, alert, obeys commands, Oriented to person, place, time, situation, Appropriate for age. Respiratory: Airway is patent Respiratory effort is even, unlabored, Respiratory pattern is regular, symmetrical. GI: Reports lower abdominal pain, diarrhea, nausea, vomiting. Derm: Skin is intact, is healthy with good turgor, Skin is pink, warm \T\ dry. normal. Historical: - Allergies: 19:29 Codeine; ph 19:29 Propoxyphene HCl; ph - Home Meds: 19:29 Aspirin Oral [Active]; atorvastatin Oral [Active]; Celecoxib Oral [Active]; Furosemide ph Oral [Active]; gabapentin Oral [Active]; Glipizide Oral [Active]; Hydrocodone-Acetaminophen Oral [Active]; Levofloxacin Oral [Active]; losartan Oral [Active]; losartan-hydrochlorothiazide Oral [Active]; Metoprolol Tartrate Oral [Active]; Omeprazole Oral [Active]; pantoprazole Oral [Active]; - PMHx: 19:29 Diabetes - NIDDM; Atrial Fib; Hypertension; Myocardial infarction; ph - PSHx: 19:29 Cholecystectomy; Hysterectomy; Heart stents; bladder lift x 3; ph - Immunization history:: Adult Immunizations up to date. - Social history:: Smoking status: Patient/guardian denies using tobacco. - Ebola Screening: : No symptoms or risks identified at this time. Screenin:48 Abuse screen: Denies threats or abuse. Nutritional screening: No deficits noted. lc1 Tuberculosis screening: No symptoms or risk factors identified. Fall Risk None identified. Assessment: 19:48 General: Appears distressed, Behavior is calm, cooperative. Pain: Complains of pain in lc1 abdomen Pain currently is 10 out of 10 on a pain scale. Pain began 2-3 days ago. Neuro: No deficits noted. Cardiovascular: No deficits noted. Respiratory: No deficits noted. GI: Reports diarrhea, nausea, vomiting. : No deficits noted. EENT: No deficits noted. Derm: No deficits noted. Musculoskeletal: No deficits noted. 20:45 Reassessment: No changes from previously documented assessment. Patient and/or family lc1 updated on plan of care and expected duration. Pain level reassessed. Patient is alert, oriented x 3, equal unlabored respirations, skin warm/dry/pink. Patient states symptoms have not improved. 21:46 Reassessment: Patient and/or family updated on plan of care and expected duration. Pain lc1 level reassessed. Patient is alert, oriented x 3, equal unlabored respirations, skin warm/dry/pink. Patient states symptoms have not improved. requesting more nausea med, provider informed, zofran ordered. 22:45 Reassessment: No changes from previously documented assessment. Patient and/or family lc1 updated on plan of care and expected duration. Pain level reassessed. Patient is alert, oriented x 3, equal unlabored respirations, skin warm/dry/pink. 23:45 Reassessment: No changes from previously documented assessment. Patient and/or family lc1 updated on plan of care and expected duration. Pain level reassessed. Patient is alert, oriented x 3, equal unlabored respirations, skin warm/dry/pink. 09/25 00:45 Reassessment: No changes from previously documented assessment. Patient and/or family lc1 updated on plan of care and expected duration. Pain level reassessed. Patient is alert, oriented x 3, equal unlabored respirations, skin warm/dry/pink. Patient states symptoms have improved. Vital Signs: 09/24 19:29 BP 139 / 72; Pulse 83; Resp 16; Temp 97.9; Pulse Ox 96% on R/A; Weight 68.95 kg; Height ph 4 ft. 11 in. (149.86 cm); 20:30 BP 149 / 70; Pulse 66; Resp 18; Pulse Ox 92% on R/A; lc1 21:43 BP 149 / 89; Pulse 71; Resp 18; Pulse Ox 95% on R/A; lc1 22:30 BP 154 / 77; Pulse 72; Resp 16; Pulse Ox 93% on R/A; lc1 23:30 BP 167 / 76; Pulse 73; Resp 16; Pulse Ox 92% on R/A; 1 09/25 00:30 BP 171 / 72; Pulse 66; Resp 16; Pulse Ox 92% on R/A; lc1 01:00 BP 165 / 59; Pulse 68; Resp 16; Pulse Ox 93% on R/A; 1 09/24 19:29 Body Mass Index 30.70 (68.95 kg, 149.86 cm) ph ED Course: 09/24 19:22 Patient arrived in ED. am2 19:22 Roscoe Pino MD is Private Physician. am2 19:28 Triage completed. ph 19:29 Arm band placed on left wrist. Patient placed in an exam room. ph 19:35 Tabitha Glass is Primary Nurse. lc1 19:39 aSm Goodwin MD is Attending Physician. ps1 19:[address] Scan. lc1 19:45 Inserted saline lock: 20 gauge in left antecubital area, using aseptic technique. Blood lc1 collected. 19:48 Patient has correct armband on for positive identification. Bed in low position. Side lc1 rails up X 1. Pulse ox on. NIBP on. Warm blanket given. 20:15 Radiology exam delayed due to lab results not completed at this time. (BUN/Creatinine). vm2 20:30 No provider procedures requiring assistance completed. lc1 20:59 No apparent distress. Resting quietly. lc1 21:[address] nj 21:21 CT completed. Patient tolerated procedure well. Patient moved back from CT. nj 21:34 CT Abd/Pelvis - IV Contrast Only In Process Unspecified. EDMS 21:43 Awaiting radiology results. lc1 09/25 00:31 Roscoe Pino MD is Referral Physician. ps1 01:00 IV discontinued, intact, bleeding controlled, Pressure dressing applied. lc1 Administered Medications: 09/24 20:20 Drug: Zofran 4 mg Route: IVP; Site: left antecubital; ca1 09/25 01:14 Follow up: Response: No adverse reaction lc1 09/24 20:27 Drug: morphine 4 mg {Note: RASS - 0.} Route: IVP; Site: left antecubital; ca1 09/25 01:15 Follow up: Response: Pain is decreased lc1 09/24 21:52 Drug: Zofran 4 mg Route: IVP; Infused Over: 2 mins; Site: left antecubital; lc1 09/25 01:14 Follow up: Response: No adverse reaction lc1 09/24 22:35 Drug: TORadol - Ketorolac 15 mg Route: IVP; Site: left antecubital; ca1 09/25 01:13 Follow up: Response: No adverse reaction lc1 01:13 Drug: Rocephin - (cefTRIAXone) 1 grams Route: IVPB; Infused Over: 30 mins; Site: left lc1 antecubital; 01:14 Follow up: Response: No adverse reaction; IV Status: Completed infusion lc1 01:13 Drug: Pyridium 100 mg Route: PO; lc1 01:14 Follow up: Response: No adverse reaction lc1 Outcome: 00:32 Discharge ordered by MD. ps1 01:17 Discharged to home via wheelchair, with family. lc1 01:17 Condition: improved 01:17 Discharge instructions given to patient, family, Instructed on discharge instructions, medication usage, Demonstrated understanding of instructions, follow-up care, medications, Prescriptions given X 2. 01:18 Patient left the ED. lc1 Signatures: Dispatcher [employer] EDMS Tabitha Glass lc1 Emerald Cline, NATALI RN ph Shaggy, Payal Jay Victoria 2 Sam Goodwin MD MD ps1 Camilla Castro RN RN ca1 Corrections: (The following items were deleted from the chart) 09/24 22:55 21:46 Reassessment: Patient and/or family updated on plan of care and expected lc1 duration. Pain level reassessed. Patient is alert, oriented x 3, equal unlabored respirations, skin warm/dry/pink. Patient states symptoms have not improved. requesting more nausea med, provider informed. lc1
--- NOTE | 2018-09-25 00:45 | EDPHYS ---
Physician Documentation [facility] Name: Judy Puri Age: 78 yrs Sex: Female : 1940 Arrival Date: 09/24/2018 Time: 19:22 Bed 26 Private MD: Roscoe Pino E ED Physician Sam Goodwin HPI: 09/24 21:32 This 78 yrs old Female presents to ER via Wheelchair with complaints of ps1 Diarrhea, Abdominal Pain. 21:32 Patient states that she has RUQ abdominal pain and n/v/d for 24 hours. No fever. States ps1 last month she was s/p lap isabel for gallstone pancreatitis. She states that she had a normal course after surgery. Otherwise in USOH until yesterday. Now with pain localized to RUQ, tender to palpation. Not associated with food but not eating much 2/2 nausea. . Historical: - Allergies: 19:29 Codeine; ph 19:29 Propoxyphene HCl; ph - Home Meds: 19:29 Aspirin Oral [Active]; atorvastatin Oral [Active]; Celecoxib Oral [Active]; Furosemide ph Oral [Active]; gabapentin Oral [Active]; Glipizide Oral [Active]; Hydrocodone-Acetaminophen Oral [Active]; Levofloxacin Oral [Active]; losartan Oral [Active]; losartan-hydrochlorothiazide Oral [Active]; Metoprolol Tartrate Oral [Active]; Omeprazole Oral [Active]; pantoprazole Oral [Active]; - PMHx: 19:29 Diabetes - NIDDM; Atrial Fib; Hypertension; Myocardial infarction; ph - PSHx: 19:29 Cholecystectomy; Hysterectomy; Heart stents; bladder lift x 3; ph - Immunization history:: Adult Immunizations up to date. - Social history:: Smoking status: Patient/guardian denies using tobacco. - Ebola Screening: : No symptoms or risks identified at this time. ROS: 21:32 Constitutional: Negative for fever, chills, and weight loss, Eyes: Negative for injury, ps1 pain, redness, and discharge, Cardiovascular: Negative for chest pain, palpitations, and edema, Respiratory: Negative for shortness of breath, cough, wheezing, and pleuritic chest pain, Back: Negative for injury and pain, MS/Extremity: Negative for injury and deformity, Skin: Negative for injury, rash, and discoloration, Neuro: Negative for headache, weakness, numbness, tingling, and seizure. 21:32 Abdomen/GI: Positive for abdominal pain, nausea, vomiting, and diarrhea. Exam: 21:32 Constitutional: This is a well developed, well nourished patient who is awake, alert, ps1 and in no acute distress. Head/Face: Normocephalic, atraumatic. Eyes: Pupils equal round and reactive to light, extra-ocular motions intact. Lids and lashes normal. Conjunctiva and sclera are non-icteric and not injected. Chest/axilla: Normal chest wall appearance and motion. Nontender with no deformity. No lesions are appreciated. Cardiovascular: Regular rate and rhythm. No gallops, murmurs, or rubs. Normal PMI, no JVD. No pulse deficits. Respiratory: Lungs have equal breath sounds bilaterally, clear to auscultation and percussion. No rales, rhonchi or wheezes noted. No increased work of breathing, no retractions or nasal flaring. Skin: Warm, dry with normal turgor. Normal color with no rashes, no lesions, and no evidence of cellulitis. MS/ Extremity: Pulses equal, no cyanosis. Neurovascular intact. Full, normal range of motion. 21:32 Abdomen/GI: Inspection: abdomen appears normal, Bowel sounds: normal, Palpation: moderate abdominal tenderness, in the right upper quadrant. Vital Signs: 19:29 BP 139 / 72; Pulse 83; Resp 16; Temp 97.9; Pulse Ox 96% on R/A; Weight 68.95 kg; Height ph 4 ft. 11 in. (149.86 cm); 20:30 BP 149 / 70; Pulse 66; Resp 18; Pulse Ox 92% on R/A; lc1 21:43 BP 149 / 89; Pulse 71; Resp 18; Pulse Ox 95% on R/A; lc1 22:30 BP 154 / 77; Pulse 72; Resp 16; Pulse Ox 93% on R/A; lc1 23:30 BP 167 / 76; Pulse 73; Resp 16; Pulse Ox 92% on R/A; lc1 0809 00:30 BP 171 / 72; Pulse 66; Resp 16; Pulse Ox 92% on R/A; lc1 01:00 BP 165 / 59; Pulse 68; Resp 16; Pulse Ox 93% on R/A; lc1 09/24 19:29 Body Mass Index 30.70 (68.95 kg, 149.86 cm) ph MDM: 09/24 20:59 Patient medically screened. rust 09/25 00:33 Data reviewed: vital signs, nurses notes, radiologic studies, and as a result, I will ps1 discharge patient. Counseling: I had a detailed discussion with the patient and/or guardian regarding: the historical points, exam findings, and any diagnostic results supporting the discharge/admit diagnosis, lab results, radiology results, the need for outpatient follow up, to return to the emergency department if symptoms worsen or persist or if there are any questions or concerns that arise at home. 09/24 20:09 Order name: CBC with Diff; Complete Time: 21:01 rust 09/24 20:09 Order name: CMP; Complete Time: 21:01 rust 09/24 20:09 Order name: Lipase; Complete Time: 21:01 rust 09/24 22:52 Order name: Urine Microscopic Only; Complete Time: 00:30 09/24 22:52 Order name: Urine Culture 09/24 22:53 Order name: Urine Dipstick--Ancillary (enter results) 6 09/24 20:09 Order name: CT Abd/Pelvis - IV Contrast Only rust 09/24 20:09 Order name: Urine Dipstick-Ancillary (obtain specimen); Complete Time: 22:56 rust Administered Medications: 09/24 20:20 Drug: Zofran 4 mg Route: IVP; Site: left antecubital; ca1 09/25 01:14 Follow up: Response: No adverse reaction [facility] 09/24 20:27 Drug: morphine 4 mg {Note: RASS - 0.} Route: IVP; Site: left antecubital; ca1 09/25 01:15 Follow up: Response: Pain is decreased [facility] 09/24 21:52 Drug: Zofran 4 mg Route: IVP; Infused Over: 2 mins; Site: left antecubital; lc1 09/25 01:14 Follow up: Response: No adverse reaction 1 09/24 22:35 Drug: TORadol - Ketorolac 15 mg Route: IVP; Site: left antecubital; ca1 09/25 01:13 Follow up: Response: No adverse reaction [facility] 01:13 Drug: Rocephin - (cefTRIAXone) 1 grams Route: IVPB; Infused Over: 30 mins; Site: left lc1 antecubital; 01:14 Follow up: Response: No adverse reaction; IV Status: Completed infusion lc1 01:13 Drug: Pyridium 100 mg Route: PO; lc1 01:14 Follow up: Response: No adverse reaction lc1 Disposition: 09/25/18 00:32 Discharged to Home. Impression: Acute cystitis, Abdominal and pelvic pain. - Condition is Stable. - Discharge Instructions: Urinary Tract Infection, Adult. - Prescriptions for Keflex 500 mg Oral Capsule - take 1 capsule by ORAL route every 8 hours for 10 days; 30 capsule. Pyridium 200 mg Oral Tablet - take 1 tablet by ORAL route every 8 hours for 3 days; 9 tablet. - Medication Reconciliation Form, Thank You Letter, Antibiotic Education, Prescription Opioid Use form. - Follow up: Roscoe Pino MD; When: 24 Hours; Reason: Further diagnostic work-up, Recheck today's complaints, Re-evaluation by your physician. Follow up: Emergency Department; When: As needed; Reason: Fever > 102 F, Worsening of condition. - Problem is new. - Symptoms have improved. Signatures: Dispatcher [employer] EDMS Itzel Hodgson RN RN Tabitha Glass lc1 Emerald Cline RN RN ph Sam Goodwin MD MD ps1 Camilla Castro RN RN ca1 Corrections: (The following items were deleted from the chart) 01:18 00:32 09/25/2018 00:32 Discharged to Home. Impression: Acute cystitisAbdominal and lc1 pelvic pain. Condition is Stable. Forms are Medication Reconciliation Form, Thank You Letter, Antibiotic Education, Prescription Opioid Use. Follow up: Roscoe Pino; When: 24 Hours; Reason: Further diagnostic work-up, Recheck today's complaints, Re-evaluation by your physician. Follow up: Emergency Department; When: As needed; Reason: Fever > 102 F, Worsening of condition. Problem is new. Symptoms have improved. ps1
[2018-09-25] MEDS ORDERED: CEFTRIAXONE/SWI 1gm 1 GM/10 ML SYR ONE (00:46)
[2018-09-25] MEDS ORDERED: PHENAZOPYRIDINE 100MG TAB PO ONE (00:59)
[2018-09-25 01:15] LABS: Urine Blood 1+ (NEG); Urine Glucose NEGATIVE (NEG); Urine Protein NEGATIVE (NEG); Urine pH 6.5 (5.0-7.0)
[2018-09-25 01:31] VITALS: TEMP 97.9
[2018-09-25 01:39] VITALS: BP 165/59; O2SAT 93
--- NOTE | 2018-09-25 10:58 | RAD REPORT ---
EXAM DESCRIPTION: CT - Abdomen Pelvis W Contrast - 09/25/2018 5:02 am CLINICAL HISTORY: S/p recent isabel 2/2 gallstone pancreatitis. TECHNIQUE: Axial computed tomography images of the abdomen and pelvis with intravenous contrast. S agittal and coronal reformatted images were created and reviewed. This CT exam was performed using one or more of the following dose reduction techniques: automated exposure control, adjustment of t he mA and/or kV according to patient size, and/or use of iterative reconstruction technique. COMPARISON: 08/07/2018. FINDINGS: Limitations: None. Lung bases: Unremarkable. No mass. No consolidation. ABDOMEN: Liver: Unremarkable. No mass. Gallbladder and bile ducts: Cholecystectomy. New postoperative pneumobilia present. Stable common bile duct dilatation to 2.3 cm. No calcified ductal stone noted. Pancreas: No evidence of peripancreatic inflammation or pancreatic mass. No ductal dilation. Spleen: Unremarkable. No splenomegaly. Adrenals: Unremarkable. No mass. Kidneys and ureters: There is a 1.5 x 0.9 cm stone in the right renal pelvis which is mildly dil ated. There is a 1 cm left renal cyst. Stomach and bowel: Moderate right colonic stool. No obstruction or ileus. No stone identifie d within the intestinal lumen. Colonic diverticulosis noted. No mucosal thickening. PELVIS: Appendix: No findings to suggest acute appendicitis. Bladder: Unremarkable. No mass. Reproductive: Hysterectomy. ABDOMEN and PELVIS: Intraperitoneal space: Unremarkable. No free air. No significant fluid collection. Bones/joints: No acute fracture. No dislocation. Soft tissues: Chronic seroma associated with a ventral hernia mesh repair. There is a small pr obable chronic fluid collection in the thickened anterior abdominal wall. Vasculature: Unremarkable. No abdominal aortic aneurysm. Lymph nodes: Unremarkable. No enlarged lymph nodes. IMPRESSION: 1. New pneumobilia and stable common bile duct dilatation postcholecystectomy. 2. Stone in the right renal pelvis which is mildly dilated. This could create a ball valve type o bstruction. 3. Normal intestinal gas pattern. Electronically signed by: Jennifer Trejo MD 09/24/2018 9:50 PM CDT Due to temporary technical issues with the PACS/Fluency reporting system, reports are being signed by the in house radiologist as a courtesy to ensure prompt reporting. The interpreting radiologist is f ully responsible for the content of the report.
== END 2018-09-25 01:18 | disposition home or self-care (01) ==
LOC: ER 19:21
DX: N30.00 Acute cystitis without hematuria (principal); I10 Essential (primary) hypertension; I48.91 Unspecified atrial fibrillation; E11.9 Type 2 diabetes mellitus without complications; I25.2 Old myocardial infarction; Z79.82 Long term (current) use of aspirin; Z88.5 Allergy status to narcotic agent; Z88.8 Allergy status to other drugs, medicaments and biological substances; Z95.818 Presence of other cardiac implants and grafts
CPT/HCPCS: 87088; 85025; 87086; 36415; 83690; 80053; 74177; 96375; 96374; 99284; Q9967; J0696; J2405 ×2; 81003; 81015

== ENCOUNTER 2018-10-03 05:38 | Inpatient (IN) | payer OTHER ==
--- OUTSIDE RECORDS SUMMARY | 2018-10-03 05:41 | XMS REPORT | Clinical Summary ---
:1940 Author Organization [facility] Address [address] [place] [address] Care Team Providers Name Role Phone Roscoe [...] Anesthesia Event Gastroenterology Chance Duque MD 08/10/2018 [facility] Internal [facility], 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[facility]); Severe muscle deconditioning; Atrial fibrillation with RVR ([facility]) 08/10/2018 Travel 08/10/2018 Telephone Internal Medicine Idris Joseph Abdominal Pain MD Opal 08/08/2018 Telephone Internal Medicine Kassy Jurado MD 08/07/2018 Telephone Internal Medicine Idris Joseph Abdominal Pain MD Opal after 10/02/2017 Immunizations Name Dates Previously Given Next Due [...] Not on file Implants Implanted Type Area Spinner Fixer Device Shelf Model / Identifier Expiration Serial / Date Lot Device Clsr Angio-Seal Vip 6fr [id number] - [id number] Cardiovascular N/A: Groin [facility] QUANG 11/16/2016 [id number] / Implanted: Qty: 1 on 03/21/2016 by Miguel Ángel Chaudhry MD MED: CARDIAC / SURG [id number] Synergy Stents-Coronary N/A: [place] 01/15/2017 [id number] / Implanted: Qty: 1 on 03/21/2016 by Miguel Ángel Chaudhry MD Coronary SCIENTIFIC / [id number] Procedures Procedure Name Priority Date/Time Associated Comments [...] procedure are in the results section. after 10/02/2017 Results RHYTHM STRIP - SCAN (08/19/2018 11:40 AM CDT)Only the most recent of2 resultswithin the time period is included. Narrative Performed At EKG-SCANNED (08/19/2018 11:40 AM CDT) Narrative Performed At US Renal with Doppler (08/18/2018 4:03 PM CDT) Specimen Narrative Performed At FINAL REPORT [place] Renal ultrasound and Duplex Doppler ultrasound of [...] MD Report Verified Date/Time:08/18/2018 16:58:13 Reading Location: [address] Radiology Reading Room Procedure Note Interface, [...] Report Verified Date/Time: 08/18/2018 16:58:13 Reading Location: [address] Radiology Reading Room Performing Organization Address City/State/Zipcode Phone Number [employer] POC-Glucose meter (08/18/2018 7:41 AM CDT)Only the most recent of29 resultswithin the time period is included. POC-Glucose Meter 141 (H)Comment: TESTED AT 70 - 110 mg/dL [facility] [address] [facility] [address] Specimen Blood Performing Organization Address City/[facility]/Zipcode Phone Number [address] [address] [phone] [place] CBC (Hemogram only) (08/18/2018 5:01 AM CDT)Only the most recent of7 resultswithin the time period is included. WBC 11.7 (H) 3.5 - 10.5 K/L [facility] RBC 3.29 (L) 3.93 - 5.22 M/L [facility] Hemoglobin 10.4 (L) 11.2 - 15.7 GM/DL [facility] Hematocrit 31.8 (L) 34.1 - 44.9 % [facility] MCV 96.7 (H) 79.4 - 94.8 fL [facility] MCH 31.6 25.6 - 32.2 pg [facility] MCHC 32.7 32.2 - 35.5 GM/DL [facility] RDW 16.6 (H) 11.7 - 14.4 % [facility] Platelets 175 150 - 450 K/CU MM [facility] MPV 11.4 9.4 - 12.3 fL [facility] nRBC 0 0 - 0 /100 WBC [facility] Specimen Blood Performing Organization Address City/[facility]/Zipcode Phone Number [address] [address] CENTER Magnesium (08/18/2018 5:01 AM CDT)Only the most recent of8 resultswithin the time period is included. Magnesium 1.9 1.6 - 2.6 mg/dL [facility] Specimen Blood Performing Organization Address City/[facility]/Zipcode Phone Number [facility] [address] [address] [place] Hepatic function panel (08/18/2018 5:01 AM CDT)Only the most recent of8 resultswithin the time period is included. Protein, Total 5.4 (L) 6.0 - 8.3 gm/dL [facility] Albumin 2.9 (L) 3.5 - 5.0 g/dL [facility] Total Bilirubin 0.4 0.2 - 1.2 mg/dL [facility] Bilirubin, Direct 0.2 0.1 - 0.5 mg/dL [facility] Alkaline Phosphatase 73 40 - 150 U/L [facility] AST 20 5 - 34 U/L [facility] ALT 17 6 - 55 U/L [facility] Specimen Blood Performing Organization Address City/State/Zipcoga Phone Number [address] [address] [place] Basic Metabolic Panel (08/18/2018 5:01 AM CDT)Only the most recent of8 resultswithin the time period is included. Sodium 134 (L) 136 - 145 meq/L [facility] Potassium 4.2 3.5 - 5.1 meq/L [facility] Chloride 103 98 - 107 meq/L [facility] CO2 28 22 - 29 meq/L [facility] BUN 12 7 - 21 mg/dL [facility] Creatinine 0.74 0.57 - 1.25 mg/dL [facility] Glucose 124 (H) 70 - 105 mg/dL [facility] Calcium 9.9 8.4 - 10.2 mg/dL [facility] EGFR 76Comment: ESTIMATED GFR IS mL/min/1.73 sq m [facility] NOT ACCURATE [facility] CLEARANCE IN PREDICTING GLOMERULAR FILTRATION RATE. ESTIMATED GFR IS NOT APPLICABLE FOR DIALYSIS PATIENTS. Specimen Blood Performing Organization Address City/State/Zipcode Phone Number [facility] [address] [place] [address] CENTER NM myocardial perfusion PET (rest and stress) (08/17/2018 2:17 PM CDT) Specimen Narrative Performed At FINAL REPORT [facility] PROCEDURE: MYOCARDIAL PERFUSION PET IMAGING (Rest/Stress) CPT CODE: 81773 INDICATION: Define extent of known CAD, chest [...] MD Report Verified Date/Time:08/17/2018 15:22:38 Reading Location: [address] Reading Room Procedure Note Interface, External Ris In - 08/17/2018 3:24 PM CDT FINAL REPORT PROCEDURE: MYOCARDIAL PERFUSION PET IMAGING (Rest/Stress) CPT CODE: 26979 INDICATION: Define extent of known CAD, chest [...] Report Verified Date/Time: 08/17/2018 15:22:38 Reading Location: [address] Reading Room Performing Organization Address City/State/Zipcode [...] 2:32:36 PM Confirmed by MD TEE JORGE ([id number]) on 09/24/2018 2:05:23 PM Procedure Note Interface, [...] 2:32:36 PM Confirmed by MD TEE JORGE ([id number]) on 09/24/2018 2:05:23 PM Performing Organization Address City/State/Zipcode Phone Number [facility] CBC with platelet count + automated diff (08/16/2018 12:56 PM CDT)Only the most recent of2 resultswithin the time period is included. WBC 12.9 (H) 3.5 - 10.5 K/L [facility] RBC 3.74 (L) 3.93 - 5.22 M/L [facility] Hemoglobin 11.6 11.2 - 15.7 GM/DL [facility] Hematocrit 35.0 34.1 - 44.9 % [facility] MCV 93.6 79.4 - 94.8 fL [facility] MCH 31.0 25.6 - 32.2 pg [facility] MCHC 33.1 32.2 - 35.5 GM/DL [facility] RDW 16.0 (H) 11.7 - 14.4 % [facility] Platelets 165 150 - 450 K/CU MM [facility] MPV 10.1 9.4 - 12.3 fL [facility] nRBC 0 0 - 0 /100 WBC [facility] % Neutros 84 % [facility] % Lymphs 7 % [facility] % Monos 7 % [facility] % Eos 2 % [facility] % Baso 0 % [facility] # Neutros 10.89 (H) 1.56 - 6.13 K/L [facility] # Lymphs 0.90 (L) 1.18 - 3.74 K/L [facility] # Monos 0.84 (H) 0.24 - 0.36 K/L [facility] # Eos 0.20 0.04 - 0.36 K/L [facility] # Baso 0.05 0.01 - 0.08 K/L [facility] Immature 1 0 - 1 % [facility] Granulocytes-[facility] CENTER Specimen Blood Performing Organization Address City/State/Zipcode Phone Number [facility] [address] [place] [address] CENTER Comprehensive metabolic panel (08/16/2018 12:56 PM CDT) Protein, Total 5.4 (L) 6.0 - 8.3 gm/dL [facility] Albumin 2.9 (L) 3.5 - 5.0 g/dL [facility] Alkaline Phosphatase 86 40 - 150 U/L [facility] Total Bilirubin 0.4 0.2 - 1.2 mg/dL [facility] Sodium 135 (L) 136 - 145 meq/L [facility] Potassium 3.7 3.5 - 5.1 meq/L [facility] Chloride 102 98 - 107 meq/L [facility] CO2 28 22 - 29 meq/L [facility] BUN 10 7 - 21 mg/dL [facility] Creatinine 0.83 0.57 - 1.25 mg/dL [facility] Glucose 150 (H) 70 - 105 mg/dL [facility] Calcium 10.0 8.4 - 10.2 mg/dL [facility] AST 25 5 - 34 U/L [facility] ALT 23 6 - 55 U/L [facility] EGFR 66Comment: ESTIMATED GFR mL/min/1.73 sq m [facility] IS NOT ACCURATE [facility] CREATININE CLEARANCE IN PREDICTING GLOMERULAR FILTRATION RATE. ESTIMATED GFR IS NOT APPLICABLE FOR DIALYSIS PATIENTS. Specimen Blood Performing Organization Address City/State/Zipcode Phone Number [facility] [address] [place] [address] [phone] CENTER REPORT OF PROCEDURE - ENDOSCOPY URL (08/15/2018 5:30 PM CDT) Narrative Performed At [place] ERCP (08/15/2018 4:55 PM CDT) Specimen Narrative Performed At FINAL REPORT [facility] Fluoroscopy, less than 1 hour History:ERCP Comparison: none Findings: Fluoroscopic assistance was provided during ERCP.Fluoroscopic images taken were interpreted by the referring clinician.Please see separate procedure note for full details. Total Fluoroscopy time: 79.2 seconds Number of fluoroscopic images obtained: Four Impression: Fluoroscopy assistance as described above. Signed: Enio Ley MD Report Verified Date/Time:08/15/2018 17:37:26 Reading Location: [facility] C0X Ortho Consult Reading Room Procedure Note [...] Report Verified Date/Time: 08/15/2018 17:37:26 Reading Location: [facility] C013X Ortho Consult Reading Room Performing Organization Address City/State/Zipcode Phone Number [facility]IS Tissue Exam (08/15/2018 4:52 PM CDT) Case Report Surgical Pathology Report Case: [id number] [facility] Authorizing Provider:Roddy Bernardected: 08/15/[address] [place] [address] Ordering Location: [address] Received: 08/17/2018 0800 Service Pathologist: Joanne Gu MD Specimens: A) - Duodenal, ULCERS BX B) - Biopsy, Gastric, BX DIAGNOSIS This final report is issued to give the result of immunohistochemical study for Helicobacter pylori on specimen B: [facility] A. DUODENUM, ULCERS, ENDOSCOPIC BIOPSY: - SEVERE [...] MALIGNANCY NOTED Signing Pathologist Direct Phone Line: [phone] CPT Code(s) 12575 X 2; 68231; 89631 [facility] CLINICAL HISTORY Common bile duct stones [facility] SPECIMEN SOURCE A. Duodenal ulcers biopsy; B. [facility] Biopsy, gastric biopsy [facility] GROSS DESCRIPTION The case is received in two parts both labeled with the patient's name, Judy Calhoun, date of 1940 and accession number [id number] which corresponds to accompanying requisition page labeled with the same name and accession number. [facility] Part A is received in formalin labeled [...] in cassette B1. RP/pl MICROSCOPIC DESCRIPTION PERFORMED [facility] SPECIAL STUDIES The interpretation of this case included the use of immunohistochemistry or special stains. [facility] WARTHIN-STARRY; HELICOBACTER PYLORI [facility] Control Slides Examined: In-house known positive controls were evaluated along with the test tissue. These control slides run alongside of the patients sample show appropriate staining. Internal posit emily and negative controls when available are evaluated Immunohistochemistry technical testing was performed at [facility], Pathology Laboratory where it [...] (specimen) Performing Organization Address City/State/Zipcode Phone Number [place] [phone] [place] [address] brain without IV contrast (08/12/2018 11:55 AM CDT) Specimen Narrative Performed At FINAL REPORT [facility] CT, BRAIN, WITHOUT CONTRAST CLINICAL INDICATION:Confusion/delirium, altered [...] MD Report Verified Date/Time:08/12/2018 12:57:37 Reading Location: [facility] Reading Room Procedure Note Interface, External Ris [...] Report Verified Date/Time: 08/12/2018 12:57:37 Reading Location: [facility] Radiology Reading Room Performing Organization Address City/State/Zipcode Phone Number [employer] CT abdomen/pelvis without & with IV contrast (08/12/2018 11:55 AM CDT) Specimen Narrative Performed At FINAL REPORT [facility] CT abdomen and pelvis without and with [...] MD Report Verified Date/Time:08/12/2018 13:32:12 Reading Location: [facility] Diagnostic Imaging Reading Room - [place] [address] Procedure Note Interface, External Ris In - [...] Report Verified Date/Time: 08/12/2018 13:32:12 Reading Location: [facility] Diagnostic Imaging Reading Room - [place] [address] Performing Organization Address City/State/Zipcode Phone Number RIS Lactic acid, venous (08/12/2018 4:36 AM CDT)Only the most recent of2 resultswithin the time period is included. Lactate, Venous 0.9Comment: Specimen 0.5 - 2.2 mmol/L [facility] slightly hemolyzed [facility] CENTER Specimen Blood Performing Organization Address City/[facility]/Zipcode Phone Number [address] [address] [phone] CENTER Folate, RBC (08/12/2018 4:36 AM CDT) Folate, Rbc >1000 >280 ng/mL RBC [facility] Specimen Blood Narrative Performed At Performing Lab [facility] [address] [place] [address] Jerica Cooney MD, PhD, JACKIE Performing Organization Address City/[facility] Phone Number [facility], [place] [address] [address] [facility] Vitamin B12 (08/12/2018 4:35 AM CDT) Vitamin B12 1,063 (H) 213 - 816 pg/mL [facility] Specimen Blood Performing Organization Address [facility] Phone Number [address] [address] [phone] CENTER Troponin I (08/12/2018 12:51 AM CDT)Only the most recent of3 resultswithin the time period is included. Troponin I 0.02 0.00 - 0.03 ng/mL [facility] Specimen Blood Narrative Performed At Troponin I (TnI) levels must be interpreted [facility] in the context of the presenting symptoms [...] Organization Address [facility] Phone Number [address] [address] [place] ECHOCARDIOGRAM REPORT - SCAN (08/11/2018 9:11 PM CDT) Narrative Performed At Procalcitonin (08/11/2018 8:46 PM CDT) Procalcitonin <0.05 <0.05 ng/mL [facility] Specimen Blood Narrative Performed At SEPSIS RISK (ng/mL) [facility] Low:0.05-0.50 Intermediate: 0.51-2.00 High: >=2.01 Performing Organization Address [facility] Phone Number [place] [phone] [place] [address] [phone] CENTER ECG 12 lead (08/11/2018 3:42 PM CDT)Only the most recent of2 resultswithin the time period is included. Specimen Narrative Performed At Ventricular Rate 71 BPM [facility] Atrial Rate 71 BPM P-R Interval 140 ms QRS Duration 78 ms Q-T Interval 326 ms QTC Calculation(Bazett) 354 ms P [place] 1 degrees R [place] 31 degrees T [place] 124 degrees Normal sinus rhythm Nonspecific ST [...] 326 ms QTC Calculation(Bazett) 354 ms P [place] 1 degrees R [place] 31 degrees T [place] 124 degrees Normal sinus rhythm Nonspecific ST and T wave abnormality Abnormal ECG When compared with ECG of 10-AUG-2018 16:46, No significant change was found Confirmed by Nicole OROZCO MICHAEL ([id number]) on 08/12/2018 8:00:23 AM Performing Organization Address [facility] Phone Number [employer] XR abdomen / KUB 1 view (08/11/2018 10:50 AM CDT) Specimen Narrative Performed At FINAL REPORT [place] CLINICAL HISTORY: abdominal pain TECHNIQUE: Supine abdomen COMPARISON: CT 03/21/2016 IMPRESSION: The bowel gas pattern is nonspecific. Free air and air-fluid levels are not seen but cannot be definitively excluded on the supine view. Right upper quadrant surgical clips are again seen. Right lower abdominal hernia repair mesh is again seen. Signed: Ken Bunn MD Report Verified Date/Time:08/11/2018 11:42:12 Reading Location: [facility] Radiology Reading Room Procedure Note Interface, [...] Report Verified Date/Time: 08/11/2018 11:42:12 Reading Location: [facility] Radiology Reading Room Performing Organization Address City/[facility] Phone Number [facility] POCT-HEMATOCRIT (08/11/2018 9:36 AM CDT) POC-Hematocrit 34 (L)Comment: TESTED AT 36 - 45 % [address] [address] Specimen Blood Performing Organization Address [facility] Phone Number [address] [phone] [place] POCT-HEMOGLOBIN (08/11/2018 9:36 AM CDT) POC-Hemoglobin 11.6 (L)Comment: TESTED AT 12.0 - 15.0 g/dL [address] [address]OBNGGS AT [address] [address] Specimen Blood Performing Organization Address [facility] Phone Number [address] [phone] [place] POCT-GLUCOSE (08/11/2018 9:36 AM CDT) POC-Glucose 165 (H)Comment: TESTED AT 70 - 110 mg/dL [address] [address] Specimen Blood Performing Organization Address [facility] Phone Number [address] [phone] CENTER POC-Sodium (08/11/2018 9:36 AM CDT) POC-Sodium 142Comment: TESTED AT [facility] 135 - 148 meq/L [address] [address] Specimen Blood Performing Organization Address City/[facility]/Zipcode Phone Number [address] [address] [place] POC-Potassium (08/11/2018 9:36 AM CDT) POC-Potassium 3.6Comment: TESTED AT [facility] 3.6 - 5.5 meq/L [address] [address] Specimen Blood Performing Organization Address City/[facility]/Zipcode Phone Number [address] [address] [phone] [place] POC-Calcium ionized (08/11/2018 9:36 AM CDT) POC-Calcium Ionized 1.50 (H)Comment: 1.12 - 1.27 mmol/L [facility] TESTED AT [address] [address] Specimen Blood Performing Organization Address City/[facility] Phone Number [address] [address] [place] POC-Blood gases, venous (08/11/2018 9:36 AM CDT) Temp. Celsius-POC 36.9 [facility] FIO2-POC 28Comment: TESTED AT [address] [address] pH, Venous-POC 7.344 7.320 - 7.420 [facility] PCO2, Venous-POC 48.8 41.0 - 51.0 mm Hg [facility] PO2, Venous-POC 36.0 25.0 - 40.0 mm Hg [facility] SO2, Venous-POC 66.0 40.0 - 70.0 % [facility] HCO3, Venous-POC 26.6 21.0 - 29.0 meq/L [facility] BE, Venous-POC 1.0 -2.0 - 3.0 meq/L [facility] Specimen Blood Performing Organization Address City/[facility]/Zipcode Phone Number [address] [phone] [place] POC-Lactic Acid, Venous (08/11/2018 9:32 AM CDT) POC-Lactic Acid, Venous 0.9Comment: TESTED AT 0.9 - 1.7 mmol/L [address] [address] Specimen Blood Performing Organization Address [facility] Phone Number [address] [address] [phone] [place] Urinalysis w/Microscopic + Reflex to Culture (08/11/2018 7:48 AM CDT) Color, UA Yellow [facility] Clarity, UA Clear [facility] Specific [place], UA 1.012 1.001 - 1.035 [facility] pH, UA 6.0 5.0 - 8.0 [facility] Protein, UA 10 mg/dL (A) Negative [facility] Glucose, UA 50 mg/dL (A) Negative [facility] Ketones, UA 20 mg/dL (A) Negative [facility] Bilirubin, UA Negative Negative [facility] Blood, UA Moderate (A) Negative [facility] Nitrite, UA Negative Negative [facility] Leukocytes, UA Negative Negative [facility] Urobilinogen, UA 0.2 0.2 - 1.0 mg/dL [facility] RBC, UA 105 /HPF [facility] WBC, UA 2 /HPF [facility] Specimen Source [facility] Specimen Urine Performing Organization Address City/[facility]/Zipcode Phone Number [facility] [address] [place] [phone] [place] Blood Culture - Routine (Right Venipuncture) (08/11/2018 12:25 AM CDT)Only the most recent of2 resultswithin the time period is included. Result No growth in 5 days [facility] Specimen Blood Performing Organization Address City/[facility]/Zipcode Phone Number [address] [address] [place] Lipase (08/11/2018 12:24 AM CDT) Lipase 23 8 - 78 U/L [facility] Specimen Blood Performing Organization Address [facility] [place] Phone Number [address] [address] [place] XR chest 1 view portable / bedside [...] MD Report Verified Date/Time:08/10/2018 23:47:27 Reading Location: [facility] [id number] Consult Reading Room Procedure Note Interface, [...] Report Verified Date/Time: 08/10/2018 23:47:27 Reading Location: [facility] B1 [id number] Consult Reading Room Performing Organization Address City/State/Zipcode Phone Number [facility] TSH/Free T4 If Indicated (08/10/2018 7:00 PM CDT) TSH 0.30 (L) 0.35 - 4.94 uIU/mL [facility] Specimen Blood Performing Organization Address City/[facility] [place] Phone Number [address] [address] [phone] CENTER T4, free (08/10/2018 7:00 PM CDT) Free T4 0.86 0.70 - 1.48 ng/dL [facility] Specimen Blood Performing Organization Address [facility] [place] Phone Number [address] [address] C[place] Ammonia (08/10/2018 7:00 PM CDT) Ammonia 29 18 - 72 mol/L [facility] Specimen Blood Performing Organization Address [facility] [place] Phone Number [address] [address] C[place] PT/aPTT (08/10/2018 5:44 PM CDT) Protime 14.8 (H) 11.9 - 14.2 seconds [facility] INR 1.2 <=5.9 [facility] PTT 30.3 22.5 - 36.0 seconds [facility] Specimen Blood Narrative Performed At Effective 07/15/2018: PT Reference Range [facility] Change New: 11.9-14.2Previous: 11.7-14.7 RECOMMENDED COUMADIN/WARFARIN INR THERAPY RANGES STANDARD DOSE: 2.0-3.0Includes: PROPHYLAXIS for venous thrombosis, systemic embolization; TREATMENT for venous thrombosis and/or pulmonary embolus. HIGH RISK: Target INR is 2.5-3.5 for patients wiht mechanical heart valves. Performing Organization Address City/[facility] [place]/Zipcode Phone Number [address] [address] [phone] CENTER Hemoglobin A1c (08/10/2018 5:44 PM CDT) Hemoglobin A1C 7.5 (H) 4.3 - 6.1 % [facility] Specimen Blood Performing Organization Address [facility] [place]/[facility] Phone Number [address] [address] C[place] B-type Natriuretic Factor (BNP) (08/10/2018 5:43 PM CDT) BNP 876 (H) 0 - 100 pg/mL [facility] Specimen Blood Performing Organization Address [facility] [place] Phone Number [address] [address] [phone] [place] 2D Echo W/Doppler(CW/PW/Color) (08/10/2018 4:59 PM CDT) Ejection Fraction [facility] ECHO [facility] Specimen Narrative Performed At Transthoracic Echocardiography Report (TTE) [facility] [place] Demographics Patient Name JUDY CALHOUN Date of Study 08/10/2018 [id number] GenderFemale Visit Number [id number] RaceUnknown [id number] m Number [id number] Number Date of Birth1940 Referring Physician Shira Person Age78 year(s) 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 Condenser Charlene Vega [facility] Karan Phillip MD RD Physician Procedure Type [...] of Study 08/10/2018 Gender Female Visit Number [id number] Race Unknown Room Number 722 Number Date of 1940 Referring Physician Shira Person Age 78 year(s) Acid Condenser Charleneerma Vega [facility] Wire 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 Ivonne Brown, Interpreting Stevie Santoro MD [facility] [...] Number [id number] CPACS after 10/02/2017 Insurance Payer Benefit Plan / Group Subscriber ID Type Phone Address [employer] xxxxxxxx Maps Contracted ([place]) [place] [address] Advance Directives For more information, please contact:[address] [phone] Code Status Date Activated Date Inactivated Comments Full Code 08/10/2018 2:16 PM 08/18/2018 7:36 PM This code status was determined by: Patient Full Code 03/21/2016 6:40 PM 03/26/2016 4:41 PM This code status was determined by: Patient
--- OUTSIDE RECORDS SUMMARY | 2018-10-03 05:42 | XMS REPORT | Continuity of Care Document ---
:1940 Author Organization [facility] [employer] [place] Care Team Providers Name Role Phone [facility] Information [facility] Unavailable Unavailable Problems Problem Status Onset Classification Date Comments Source Date Reported M54.12 Active 10/02/19 [place] [id number] [place] Diabetes Active Problem 10/16/2015 [facility] Diabetes Resolved Problem 10/16/2015 [facility] mellitus [facility] Gastric reflux Active Problem 10/16/2015 [facility] HTN - Resolved Problem 10/16/2015 [facility] Hypertension [facility] Spine Hypertension Active Problem 10/16/2015 [facility] RADICULOPATHY, Active [facility] CERVICAL [facility] [place] Medications Medication Details Route [...] and Spine ELECTROLYTES eGFR 62 [facility] 2015 Comment: The Ortho eGFR is [...] MYELOGRAM CT SCAN OF CERVICAL SPINE 10/13/2015 [facility] myelogram CT DATE: 10/13/2015 10:08 AM CDT [...] arthrosis to the right with probable fusion. Bsll-gk-byjkkqyn right foraminal narrowing. C3-C4: Zoik-hn-iuvlnlql grade 1 degenerative anterolisthesis of C3 on C4 with a 4 -- 5 mm posterior broad-based disc osteophyte complex indenting ventral cord with posterior cord displacement there and mild central canal narrowing. Cord is mildly flattened. Facet arthrosis greater to the left with hypertrophy noted ulaa-ja-pspvpoqr left and mild right foraminal narrowing. C4-C5: Slight degenerative retrolisthesis of C4 on C5 with a 3 -- 4 mm posterior disc osteophyte complex mildly compressing and flattening cord against prominent ligament flavum with mild to moderate ce ntral canal stenosis and mild cord flattening. Xqjm-eo-fejauukl bilateral foraminal narrowing secondary to facet and uncovertebral joint degeneration C5-C6: Mild degenerative retrolisthesis of C5 on C6 with a 4 -- 5 mm posterior disc osteophyte complex compressing cord against posterior elements. There is nfbb-pk-hlgcjkqx central canal stenosis with cord flattening there [...] above. Spine cervical EXAM: Cervical MYELOGRAM 10/13/2015 [facility] myelogram DX DATE: 10/13/2015 10:07 AM CDT [...] with mild narrowing subarachnoid space. C3-C4 shows qlbo-vq-deyoynms ventral and mild dorsal extradural defects mildly encroaching upon ventral cord with jjqr-di-oediwfvx narrowing subarachnoid space C4-C5 shows moderate ventral [...] For Provider Date Date Visit [facility] Outpatient [id number] Fernie 09/28 09/29 [facility] Orthopedic and [facility] Spine Spine [facility] [id number] Fernie 10/12 10/13 [facility] Orthopedic and and Spine Spine [facility] Procedures Procedure Code Date Perfomer Comments Source Abdominal [id number] Ortho hysterectomy and Spine Cholecystectomy [id number] Ortho [facility] Spine Excision of lesion of [id number] [facility] phalanges of foot and Spine Assessment and [...]
--- OUTSIDE RECORDS SUMMARY | 2018-10-03 05:42 | XMS REPORT ---
:1940 [facility] [address] [place] [address] Care Team Providers Name Role Phone RYAN [...] PATIENT ID: WITH DOPPLER 16:58:00 exam:->hypertensionShould this [id number] Renal be performed at the ultrasound and [...] MDReport Verified Date/Time: 08/18/2018 16:58:13 Reading Location: [address] Radiology Reading Room UE EXAM 2018-08-18 Surgical Pathology Report 14:09:00 Case: [id number] Authorizing Provider: Roddy Bernard Collected: 08/15/2018 1652 Ordering Location: [address] Received: 08/17/2018 0800 Service Pathologist: Joanne [...] MALIGNANCY NOTED Signing Pathologist Direct Phone Line: [phone] y signed by Joanne Gu MD on 08/18/2018 at 2:09 PMPreliminary result electronically signed by Joanne Gu MD on 08/17/2018 at 6:32 [id number] X 2; [id number]; [id number] bile duct stonesA. Duodenal ulcers biopsy; B. [...] evaluated Immunohistochemistry technical testing was performed at [facility], Pathology Laboratory where it was developed [...] (BEAKER) (test 141 mg/dL 70-110 TESTED AT [facility] [address] [facility] cvfm=1509) [facility] [address] [id number] 06:53:00 Test Item Value Reference Range Comments MAGNESIUM (BEAKER) (test oxck=930) 1.9 mg/dL 1.6-2.6 BASIC METABOLIC [id number] 06:53:00 Test Item Value Reference Range Comments SODIUM (BEAKER) (test 134 meq/L 136-145 bpxs=639) POTASSIUM (BEAKER) (test 4.2 meq/L 3.5-5.1 phca=829) CHLORIDE (BEAKER) (test 103 meq/L 98-107 dalw=024) CO2 (BEAKER) (test 28 meq/L 22-29 hzku=125) BLOOD UREA NITROGEN 12 mg/dL 7-21 (BEAKER) (test bdub=034) CREATININE (BEAKER) (test 0.74 mg/dL 0.57-1.25 kgip=969) GLUCOSE RANDOM (BEAKER) 124 mg/dL 70-105 (test ggum=607) CALCIUM (BEAKER) (test 9.9 mg/dL 8.4-10.2 agmh=414) EGFR (BEAKER) (test 76 mL/min/1.73 sq m ESTIMATED GFR IS NOT rpgn=4153) ACCURATE CREATININE CLEARANCE IN PREDICTING GLOMERULAR FILTRATION RATE. ESTIMATED GFR IS NOT APPLICABLE FOR DIALYSIS PATIENTS. HEPATIC FUNCTION [id number] 06:53:00 Test Item Value Reference Range Comments TOTAL PROTEIN (BEAKER) (test lfhg=793) 5.4 gm/dL 6.0-8.3 ALBUMIN (BEAKER) (test tjdo=4979) 2.9 g/dL 3.5-5.0 BILIRUBIN TOTAL (BEAKER) (test evyd=527) 0.4 mg/dL 0.2-1.2 BILIRUBIN DIRECT (BEAKER) (test tosz=648) 0.2 mg/dL 0.1-0.5 ALKALINE PHOSPHATASE (BEAKER) (test wqyz=491) 73 U/L 40-150 AST (SGOT) (BEAKER) (test nzik=772) 20 U/L 5-34 ALT (SGPT) (BEAKER) (test ekwx=026) 17 U/L 6-55 CBC (HEMOGRAM ONLY)2018-08-18 06:22:00 Test Item Value Reference Range Comments WHITE BLOOD CELL COUNT (BEAKER) (test qqow=227) 11.7 K/ L 3.5-10.5 RED BLOOD CELL COUNT (BEAKER) (test lawg=778) 3.29 M/ L 3.93-5.22 HEMOGLOBIN (BEAKER) (test gcoa=778) 10.4 GM/DL 11.2-15.7 HEMATOCRIT (BEAKER) (test wocp=269) 31.8 % 34.1-44.9 MEAN CORPUSCULAR VOLUME (BEAKER) (test utxw=171) 96.7 fL 79.4-94.8 MEAN CORPUSCULAR HEMOGLOBIN (BEAKER) (test 31.6 pg 25.6-32.2 bpoa=297) MEAN CORPUSCULAR HEMOGLOBIN CONC (BEAKER) (test 32.7 GM/DL 32.2-35.5 jprr=965) RED CELL DISTRIBUTION WIDTH (BEAKER) (test 16.6 % 11.7-14.4 fdjb=731) PLATELET COUNT (BEAKER) (test tzmj=458) 175 K/CU MM 150-450 MEAN PLATELET VOLUME (BEAKER) (test pign=772) 11.4 fL 9.4-12.3 NUCLEATED RED BLOOD CELLS (BEAKER) (test 0 /100 WBC 0-0 jtxm=302) POCT-GLUCOSE [id number] 23:08:00 Test Item Value Reference Range Comments POC-GLUCOSE METER (BEAKER) 163 mg/dL 70-110 TESTED AT [place] [id number] [facility] (test qtil=0585) [place] [address] POCT-GLUCOSE [id number] 17:26:00 Test Item Value Reference Range Comments POC-GLUCOSE METER (BEAKER) 131 mg/dL 70-110 TESTED AT [address] (test uxsg=0431) [place] [address] PET, CARDIAC PERFUSION MULTIPLE STUDIES, REST AND [id number] 15:22: 00Reason for exam:->Exclude ischemiaFINAL REPORT PROCEDURE: MYOCARDIAL PERFUSION PET IMAGING (Rest/Stress)CPT CODE: 40665 INDICATION: Define extent of known CAD, chest [...] MDReport Verified Date/Time: 08/17/2018 15:22:38 Reading Location: [address] Reading Room POCT-GLUCOSE [id number] 13:27:00 Test Item Value Reference Range Comments POC-GLUCOSE METER (BEAKER) 130 mg/dL 70-110 TESTED AT [address] (test jsrn=3005) [facility] [address] CBC (HEMOGRAM ONLY)2018-08-17 07:52:00 Test Item Value Reference Range Comments WHITE BLOOD CELL COUNT (BEAKER) (test wtso=438) 10.6 K/ L 3.5-10.5 RED BLOOD CELL COUNT (BEAKER) (test qsfc=745) 3.45 M/ L 3.93-5.22 HEMOGLOBIN (BEAKER) (test oztn=540) 10.8 GM/DL 11.2-15.7 HEMATOCRIT (BEAKER) (test drmn=656) 32.9 % 34.1-44.9 MEAN CORPUSCULAR VOLUME (BEAKER) (test xsgk=865) 95.4 fL 79.4-94.8 MEAN CORPUSCULAR HEMOGLOBIN (BEAKER) (test 31.3 pg 25.6-32.2 csyw=855) MEAN CORPUSCULAR HEMOGLOBIN CONC (BEAKER) (test 32.8 GM/DL 32.2-35.5 plni=469) RED CELL DISTRIBUTION WIDTH (BEAKER) (test 16.1 % 11.7-14.4 ehwv=282) PLATELET COUNT (BEAKER) (test tmgt=289) 177 K/CU MM 150-450 MEAN PLATELET VOLUME (BEAKER) (test bsjk=631) 11.2 fL 9.4-12.3 NUCLEATED RED BLOOD CELLS (BEAKER) (test 0 /100 WBC 0-0 gxud=255) [id number] 07:43:00 Test Item Value Reference Range Comments MAGNESIUM (BEAKER) (test qbxe=633) 1.6 mg/dL 1.6-2.6 BASIC METABOLIC [id number] 07:43:00 Test Item Value Reference Range Comments SODIUM (BEAKER) (test 136 meq/L 136-145 wywv=077) POTASSIUM (BEAKER) (test 3.6 meq/L 3.5-5.1 fzsr=611) CHLORIDE (BEAKER) (test 102 meq/L 98-107 sbfq=757) CO2 (BEAKER) (test 29 meq/L 22-29 hzqa=266) BLOOD UREA NITROGEN 10 mg/dL 7-21 (BEAKER) (test ckhm=161) CREATININE (BEAKER) (test 0.74 mg/dL 0.57-1.25 ijnp=931) GLUCOSE RANDOM (BEAKER) 134 mg/dL 70-105 (test kwjo=505) CALCIUM (BEAKER) (test 9.9 mg/dL 8.4-10.2 toxf=937) EGFR (BEAKER) (test 76 mL/min/1.73 sq m ESTIMATED GFR IS NOT pefb=4937) ACCURATE CREATININE CLEARANCE IN PREDICTING GLOMERULAR FILTRATION RATE. ESTIMATED GFR IS NOT APPLICABLE FOR DIALYSIS PATIENTS. HEPATIC FUNCTION [id number] 07:43:00 Test Item Value Reference Range Comments TOTAL PROTEIN (BEAKER) (test spth=431) 5.2 gm/dL 6.0-8.3 ALBUMIN (BEAKER) (test ayap=9525) 2.8 g/dL 3.5-5.0 BILIRUBIN TOTAL (BEAKER) (test nugr=691) 0.5 mg/dL 0.2-1.2 BILIRUBIN DIRECT (BEAKER) (test juer=661) 0.3 mg/dL 0.1-0.5 ALKALINE PHOSPHATASE (BEAKER) (test oavu=110) 76 U/L 40-150 AST (SGOT) (BEAKER) (test dtik=035) 21 U/L 5-34 ALT (SGPT) (BEAKER) (test rxqy=736) 17 U/L 6-55 POCT-GLUCOSE [id number] 07:24:00 Test Item Value Reference Range Comments POC-GLUCOSE METER (BEAKER) 144 mg/dL 70-110 TESTED AT [facility] [address] [facility] (test xrpv=4613) [facility] [address] POCT-GLUCOSE [id number] 23:39:00 Test Item Value Reference Range Comments POC-GLUCOSE METER (BEAKER) 159 mg/dL 70-110 TESTED AT [address] (test sbrk=7747) [facility] [address] POCT-GLUCOSE [id number] 17:20:00 Test Item Value Reference Range Comments POC-GLUCOSE METER (BEAKER) 168 mg/dL 70-110 TESTED AT [address] (test rtmt=2048) [facility] [address] COMPREHENSIVE METABOLIC [id number] 13:35:00 Test Item Value Reference Range Comments TOTAL PROTEIN (BEAKER) 5.4 gm/dL 6.0-8.3 (test tsde=835) ALBUMIN (BEAKER) (test 2.9 g/dL 3.5-5.0 oqmm=1224) ALKALINE PHOSPHATASE 86 U/L 40-150 (BEAKER) (test qwhb=005) BILIRUBIN TOTAL (BEAKER) 0.4 mg/dL 0.2-1.2 (test ovbm=025) SODIUM (BEAKER) (test 135 meq/L 136-145 dazb=019) POTASSIUM (BEAKER) (test 3.7 meq/L 3.5-5.1 pbhi=161) CHLORIDE (BEAKER) (test 102 meq/L 98-107 xruv=903) CO2 (BEAKER) (test 28 meq/L 22-29 yxzl=656) BLOOD UREA NITROGEN 10 mg/dL 7-21 (BEAKER) (test jsfs=703) CREATININE (BEAKER) (test 0.83 mg/dL 0.57-1.25 rcuj=054) GLUCOSE RANDOM (BEAKER) 150 mg/dL 70-105 (test wydp=398) CALCIUM (BEAKER) (test 10.0 mg/dL 8.4-10.2 rgmw=081) AST (SGOT) (BEAKER) (test 25 U/L 5-34 lbdi=566) ALT (SGPT) (BEAKER) (test 23 U/L 6-55 iqsa=018) EGFR (BEAKER) (test 66 mL/min/1.73 sq m ESTIMATED GFR IS NOT genc=6922) ACCURATE CREATININE CLEARANCE IN PREDICTING GLOMERULAR FILTRATION RATE. ESTIMATED GFR IS NOT APPLICABLE FOR DIALYSIS PATIENTS. CBC W/PLT COUNT & AUTO [id number] 13:14:00 Test Item Value Reference Range Comments WHITE BLOOD CELL COUNT (BEAKER) (test inlg=257) 12.9 K/ L 3.5-10.5 RED BLOOD CELL COUNT (BEAKER) (test lncd=003) 3.74 M/ L 3.93-5.22 HEMOGLOBIN (BEAKER) (test vuxf=951) 11.6 GM/DL 11.2-15.7 HEMATOCRIT (BEAKER) (test jwjr=015) 35.0 % 34.1-44.9 MEAN CORPUSCULAR VOLUME (BEAKER) (test vveq=855) 93.6 fL 79.4-94.8 MEAN CORPUSCULAR HEMOGLOBIN (BEAKER) (test 31.0 pg 25.6-32.2 weqh=710) MEAN CORPUSCULAR HEMOGLOBIN CONC (BEAKER) (test 33.1 GM/DL 32.2-35.5 mofq=160) RED CELL DISTRIBUTION WIDTH (BEAKER) (test 16.0 % 11.7-14.4 hgit=862) PLATELET COUNT (BEAKER) (test nfoa=730) 165 K/CU MM 150-450 MEAN PLATELET VOLUME (BEAKER) (test niru=357) 10.1 fL 9.4-12.3 NUCLEATED RED BLOOD CELLS (BEAKER) (test 0 /100 WBC 0-0 pnli=894) NEUTROPHILS RELATIVE PERCENT (BEAKER) (test 84 % mkci=589) LYMPHOCYTES RELATIVE PERCENT (BEAKER) (test 7 % cbfx=081) MONOCYTES RELATIVE PERCENT (BEAKER) (test 7 % mfrq=582) EOSINOPHILS RELATIVE PERCENT (BEAKER) (test 2 % itrp=206) BASOPHILS RELATIVE PERCENT (BEAKER) (test 0 % lxbw=293) NEUTROPHILS ABSOLUTE COUNT (BEAKER) (test 10.89 K/ L 1.56-6.13 rmio=752) LYMPHOCYTES ABSOLUTE COUNT (BEAKER) (test 0.90 K/ L 1.18-3.74 kegx=661) MONOCYTES ABSOLUTE COUNT (BEAKER) (test 0.84 K/ L 0.24-0.36 cqyn=874) EOSINOPHILS ABSOLUTE COUNT (BEAKER) (test 0.20 K/ L 0.04-0.36 dchi=807) BASOPHILS ABSOLUTE COUNT (BEAKER) (test 0.05 K/ L 0.01-0.08 ipsd=272) IMMATURE GRANULOCYTES-RELATIVE PERCENT (BEAKER) 1 % 0-1 (test ouoj=0236) POCT-GLUCOSE [id number] 12:12:00 Test Item Value Reference Range Comments POC-GLUCOSE METER (BEAKER) 154 mg/dL 70-110 TESTED AT [address] (test evzb=4165) [place] [address] BLOOD [id number] 08:00:00 Test Item Value Reference Range Comments CULTURE (BEAKER) (test gewb=3500) No growth in 5 days BLOOD [id number] 08:00:00 Test Item Value Reference Range Comments CULTURE (BEAKER) (test iisn=4511) No growth in 5 days POCT-GLUCOSE [id number] 07:45:00 Test Item Value Reference Range Comments POC-GLUCOSE METER (BEAKER) 115 mg/dL 70-110 TESTED AT [address] (test jufl=8173) [place] [address] POCT-GLUCOSE [id number] 23:02:00 Test Item Value Reference Range Comments POC-GLUCOSE METER (BEAKER) 90 mg/dL 70-110 TESTED AT [address] (test zguy=4126) [facility] [address] [place], [id number] 17:37:00INTRA OP IMAGINGReason for exam:->CBD STONESFINAL REPORT Fluoroscopy, less than 1 hour History:ERCP Comparison: none Findings:Fluoroscopic assistance was provided during ERCP. Fluoroscopic images taken were interpreted bythe referring clinician. Please see separate procedure note for full details. Total Fluoroscopy time: 79.2 seconds Number of fluoroscopic images obtained: Four Impression:Fluoroscopy assistance as described above. Signed: Enio Ley Verified Date/ Time: 08/15/2018 17:37:26 Reading Location: [address] Reading Room POCT-GLUCOSE [id number] 17:35:00 Test Item Value Reference Range Comments POC-GLUCOSE METER (BEAKER) 180 mg/dL 70-110 TESTED AT [facility] [address] [facility] (test skvr=8898) [facility] [address] POCT-GLUCOSE [id number] 07:57:00 Test Item Value Reference Range Comments POC-GLUCOSE METER (BEAKER) 129 mg/dL 70-110 TESTED AT [facility] [address] [facility] (test celk=0786) [facility] [address] [id number] 06:01:00 Test Item Value Reference Range Comments MAGNESIUM (BEAKER) (test pzqv=208) 1.6 mg/dL 1.6-2.6 BASIC METABOLIC [id number] 06:01:00 Test Item Value Reference Range Comments SODIUM (BEAKER) (test 138 meq/L 136-145 qitq=106) POTASSIUM (BEAKER) (test 3.8 meq/L 3.5-5.1 jfba=080) CHLORIDE (BEAKER) (test 108 meq/L 98-107 zdhw=106) CO2 (BEAKER) (test 25 meq/L 22-29 ssfo=773) BLOOD UREA NITROGEN 7 mg/dL 7-21 (BEAKER) (test cpqq=774) CREATININE (BEAKER) (test 0.77 mg/dL 0.57-1.25 ikmn=553) GLUCOSE RANDOM (BEAKER) 123 mg/dL 70-105 (test ggma=392) CALCIUM (BEAKER) (test 10.0 mg/dL 8.4-10.2 aicz=969) EGFR (BEAKER) (test 72 mL/min/1.73 sq m ESTIMATED GFR IS NOT xuol=8189) ACCURATE CREATININE CLEARANCE IN PREDICTING GLOMERULAR FILTRATION RATE. ESTIMATED GFR IS NOT APPLICABLE FOR DIALYSIS PATIENTS. HEPATIC FUNCTION [id number] 06:01:00 Test Item Value Reference Range Comments TOTAL PROTEIN (BEAKER) (test fpcp=991) 5.4 gm/dL 6.0-8.3 ALBUMIN (BEAKER) (test polm=6799) 2.9 g/dL 3.5-5.0 BILIRUBIN TOTAL (BEAKER) (test nhhn=462) 0.5 mg/dL 0.2-1.2 BILIRUBIN DIRECT (BEAKER) (test efjn=694) 0.3 mg/dL 0.1-0.5 ALKALINE PHOSPHATASE (BEAKER) (test glyf=530) 92 U/L 40-150 AST (SGOT) (BEAKER) (test osig=085) 33 U/L 5-34 ALT (SGPT) (BEAKER) (test aaha=970) 30 U/L 6-55 CBC (HEMOGRAM ONLY)2018-08-15 04:44:00 Test Item Value Reference Range Comments WHITE BLOOD CELL COUNT (BEAKER) (test bhau=453) 11.8 K/ L 3.5-10.5 RED BLOOD CELL COUNT (BEAKER) (test ssfy=132) 3.97 M/ L 3.93-5.22 HEMOGLOBIN (BEAKER) (test zxtb=603) 12.6 GM/DL 11.2-15.7 HEMATOCRIT (BEAKER) (test plki=892) 37.4 % 34.1-44.9 MEAN CORPUSCULAR VOLUME (BEAKER) (test cfhw=883) 94.2 fL 79.4-94.8 MEAN CORPUSCULAR HEMOGLOBIN (BEAKER) (test 31.7 pg 25.6-32.2 hndp=714) MEAN CORPUSCULAR HEMOGLOBIN CONC (BEAKER) (test 33.7 GM/DL 32.2-35.5 tuxn=672) RED CELL DISTRIBUTION WIDTH (BEAKER) (test 15.8 % 11.7-14.4 vxft=197) PLATELET COUNT (BEAKER) (test pdpt=599) 189 K/CU MM 150-450 MEAN PLATELET VOLUME (BEAKER) (test bcqc=782) 10.7 fL 9.4-12.3 NUCLEATED RED BLOOD CELLS (BEAKER) (test 0 /100 WBC 0-0 sspx=134) POCT-GLUCOSE [id number] 23:38:00 Test Item Value Reference Range Comments POC-GLUCOSE METER (BEAKER) 137 mg/dL 70-110 TESTED AT [address] (test zctt=9064) [facility] [address] POCT-GLUCOSE [id number] 12:13:00 Test Item Value Reference Range Comments POC-GLUCOSE METER (BEAKER) 159 mg/dL 70-110 TESTED AT [address] (test pzbn=3862) [facility] [address] POCT-GLUCOSE [id number] 08:11:00 Test Item Value Reference Range Comments POC-GLUCOSE METER (BEAKER) 138 mg/dL 70-110 TESTED AT [facility] [address] (test uinm=8975) [place] [address] [id number] 06:01:00 Test Item Value Reference Range Comments MAGNESIUM (BEAKER) (test speo=220) 1.7 mg/dL 1.6-2.6 BASIC METABOLIC [id number] 06:01:00 Test Item Value Reference Range Comments SODIUM (BEAKER) (test 138 meq/L 136-145 wvex=828) POTASSIUM (BEAKER) (test 3.8 meq/L 3.5-5.1 nqyq=579) CHLORIDE (BEAKER) (test 109 meq/L 98-107 sfyj=997) CO2 (BEAKER) (test 26 meq/L 22-29 wdtq=290) BLOOD UREA NITROGEN 10 mg/dL 7-21 (BEAKER) (test timb=460) CREATININE (BEAKER) (test 0.80 mg/dL 0.57-1.25 ssne=210) GLUCOSE RANDOM (BEAKER) 106 mg/dL 70-105 (test uztm=169) CALCIUM (BEAKER) (test 9.4 mg/dL 8.4-10.2 mkku=573) EGFR (BEAKER) (test 69 mL/min/1.73 sq m ESTIMATED GFR IS NOT gawq=4963) ACCURATE CREATININE CLEARANCE IN PREDICTING GLOMERULAR FILTRATION RATE. ESTIMATED GFR IS NOT APPLICABLE FOR DIALYSIS PATIENTS. HEPATIC FUNCTION [id number] 06:01:00 Test Item Value Reference Range Comments TOTAL PROTEIN (BEAKER) (test qviz=795) 5.4 gm/dL 6.0-8.3 ALBUMIN (BEAKER) (test xbms=3550) 2.9 g/dL 3.5-5.0 BILIRUBIN TOTAL (BEAKER) (test gtvs=965) 0.5 mg/dL 0.2-1.2 BILIRUBIN DIRECT (BEAKER) (test sxva=672) 0.4 mg/dL 0.1-0.5 ALKALINE PHOSPHATASE (BEAKER) (test jabl=193) 105 U/L 40-150 AST (SGOT) (BEAKER) (test ndtd=571) 33 U/L 5-34 ALT (SGPT) (BEAKER) (test tiav=254) 31 U/L 6-55 CBC (HEMOGRAM ONLY)2018-08-14 05:10:00 Test Item Value Reference Range Comments WHITE BLOOD CELL COUNT (BEAKER) (test riit=209) 10.6 K/ L 3.5-10.5 RED BLOOD CELL COUNT (BEAKER) (test ptuw=234) 3.87 M/ L 3.93-5.22 HEMOGLOBIN (BEAKER) (test qfho=056) 12.0 GM/DL 11.2-15.7 HEMATOCRIT (BEAKER) (test wjos=252) 36.9 % 34.1-44.9 MEAN CORPUSCULAR VOLUME (BEAKER) (test stmr=672) 95.3 fL 79.4-94.8 MEAN CORPUSCULAR HEMOGLOBIN (BEAKER) (test 31.0 pg 25.6-32.2 jgdo=882) MEAN CORPUSCULAR HEMOGLOBIN CONC (BEAKER) (test 32.5 GM/DL 32.2-35.5 dmlp=883) RED CELL DISTRIBUTION WIDTH (BEAKER) (test 15.7 % 11.7-14.4 qawn=995) PLATELET COUNT (BEAKER) (test kevz=783) 158 K/CU MM 150-450 MEAN PLATELET VOLUME (BEAKER) (test slxg=513) 11.0 fL 9.4-12.3 NUCLEATED RED BLOOD CELLS (BEAKER) (test 0 /100 WBC 0-0 bwid=600) POCT-GLUCOSE [id number] 23:53:00 Test Item Value Reference Range Comments POC-GLUCOSE METER (BEAKER) 115 mg/dL 70-110 TESTED AT [address] (test gyvu=1369) [facility] [address] POCT-GLUCOSE [id number] 16:48:00 Test Item Value Reference Range Comments POC-GLUCOSE METER (BEAKER) 83 mg/dL 70-110 TESTED AT [address] (test hnrb=0874) [facility] [address] POCT-GLUCOSE [id number] 13:19:00 Test Item Value Reference Range Comments POC-GLUCOSE METER (BEAKER) 102 mg/dL 70-110 TESTED AT [address] (test rcgl=2484) [facility] [address] POCT-GLUCOSE [id number] 12:02:00 Test Item Value Reference Range Comments POC-GLUCOSE METER (BEAKER) 95 mg/dL 70-110 TESTED AT [facility] [address] [facility] (test ppvk=1978) [facility] [address] POCT-GLUCOSE [id number] 07:22:00 Test Item Value Reference Range Comments POC-GLUCOSE METER (BEAKER) 109 mg/dL 70-110 TESTED AT [facility] [address] [facility] (test pvrq=1659) [facility] [address] [id number] 04:31:00 Test Item Value Reference Range Comments MAGNESIUM (BEAKER) (test 1.7 mg/dL 1.6-2.6 Specimen slightly hemolyzed oeud=380) BASIC METABOLIC [id number] 04:31:00 Test Item Value Reference Range Comments SODIUM (BEAKER) (test 140 meq/L 136-145 phvm=632) POTASSIUM (BEAKER) (test 3.6 meq/L 3.5-5.1 Specimen slightly ivzt=337) hemolyzed CHLORIDE (BEAKER) (test 111 meq/L 98-107 rydq=621) CO2 (BEAKER) (test 24 meq/L 22-29 jzpt=869) BLOOD UREA NITROGEN 12 mg/dL 7-21 (BEAKER) (test awlr=824) CREATININE (BEAKER) (test 0.79 mg/dL 0.57-1.25 Specimen slightly fanw=382) hemolyzed GLUCOSE RANDOM (BEAKER) 110 mg/dL 70-105 (test oobz=406) CALCIUM (BEAKER) (test 9.5 mg/dL 8.4-10.2 qedw=743) EGFR (BEAKER) (test 70 mL/min/1.73 sq m ESTIMATED GFR IS NOT bdoc=1248) ACCURATE CREATININE CLEARANCE IN PREDICTING GLOMERULAR FILTRATION RATE. ESTIMATED GFR IS NOT APPLICABLE FOR DIALYSIS PATIENTS. HEPATIC FUNCTION [id number] 04:31:00 Test Item Value Reference Range Comments TOTAL PROTEIN (BEAKER) (test 5.2 gm/dL 6.0-8.3 Specimen slightly hemolyzed pzrm=766) ALBUMIN (BEAKER) (test 2.7 g/dL 3.5-5.0 Specimen slightly hemolyzed cmaf=9494) BILIRUBIN TOTAL (BEAKER) (test 0.7 mg/dL 0.2-1.2 Specimen slightly hemolyzed lmuf=870) BILIRUBIN DIRECT (BEAKER) (test 0.3 mg/dL 0.1-0.5 Specimen slightly hemolyzed hmbl=625) ALKALINE PHOSPHATASE (BEAKER) 118 U/L 40-150 (test cibb=311) AST (SGOT) (BEAKER) (test 52 U/L 5-34 Specimen slightly hemolyzed pymk=297) ALT (SGPT) (BEAKER) (test 43 U/L 6-55 Specimen slightly hemolyzed fykt=803) CBC (HEMOGRAM ONLY)2018-08-13 03:56:00 Test Item Value Reference Range Comments WHITE BLOOD CELL COUNT (BEAKER) (test saad=022) 9.7 K/ L 3.5-10.5 RED BLOOD CELL COUNT (BEAKER) (test pvtp=750) 3.51 M/ L 3.93-5.22 HEMOGLOBIN (BEAKER) (test mlfe=765) 11.0 GM/DL 11.2-15.7 HEMATOCRIT (BEAKER) (test hzmt=903) 33.1 % 34.1-44.9 MEAN CORPUSCULAR VOLUME (BEAKER) (test yeyh=562) 94.3 fL 79.4-94.8 MEAN CORPUSCULAR HEMOGLOBIN (BEAKER) (test 31.3 pg 25.6-32.2 csko=027) MEAN CORPUSCULAR HEMOGLOBIN CONC (BEAKER) (test 33.2 GM/DL 32.2-35.5 unaf=601) RED CELL DISTRIBUTION WIDTH (BEAKER) (test 15.3 % 11.7-14.4 mhdf=970) PLATELET COUNT (BEAKER) (test ttmt=297) 128 K/CU MM 150-450 MEAN PLATELET VOLUME (BEAKER) (test hsvt=938) 11.1 fL 9.4-12.3 NUCLEATED RED BLOOD CELLS (BEAKER) (test 0 /100 WBC 0-0 mlra=446) POCT-GLUCOSE [id number] 22:11:00 Test Item Value Reference Range Comments POC-GLUCOSE METER (BEAKER) 138 mg/dL 70-110 TESTED AT [address] (test lxiz=2661) [facility] [address] POCT-GLUCOSE [id number] 16:28:00 Test Item Value Reference Range Comments POC-GLUCOSE METER (BEAKER) 155 mg/dL 70-110 TESTED AT [address] (test vjeg=0132) [facility] [address] CT, [id number] 13:32:00FINAL REPORT CT abdomen and pelvis without [...] MDReport Verified Date/Time: 08/12/2018 13:32:12 Reading Location: [facility] Diagnostic Imaging Reading Room - [place] [address] [address], BRAIN, WITHOUT [id number] 12:57:00FINAL REPORT CT, BRAIN, WITHOUT CONTRAST CLINICAL [...] Motta Verified Date/Time: 2018 12:57:37 Reading Location: [facility] Radiology Reading Room POCT -GLUCOSE [id number] 12:48:00 Test Item Value Reference Range Comments POC-GLUCOSE METER (BEAKER) 156 mg/dL 70-110 TESTED AT [address] (test ryif=2811) [facility] [address] POCT-GLUCOSE [id number] 07:16:00 Test Item Value Reference Range Comments POC-GLUCOSE METER (BEAKER) 157 mg/dL 70-110 TESTED AT [address] (test gwvo=5573) [facility] [address] VITAMIN [id number] 05:53:00 Test Item Value Reference Range Comments VITAMIN B12 (BEAKER) (test jzhs=896) 1063 pg/mL 213-816 [id number] 05:27:00 Test Item Value Reference Range Comments MAGNESIUM (BEAKER) (test syof=003) 1.7 mg/dL 1.6-2.6 BASIC METABOLIC [id number] 05:27:00 Test Item Value Reference Range Comments SODIUM (BEAKER) (test 140 meq/L 136-145 lgks=400) POTASSIUM (BEAKER) (test 3.6 meq/L 3.5-5.1 fkub=894) CHLORIDE (BEAKER) (test 109 meq/L 98-107 izmh=805) CO2 (BEAKER) (test 27 meq/L 22-29 wyae=312) BLOOD UREA NITROGEN 16 mg/dL 7-21 (BEAKER) (test vnbq=285) CREATININE (BEAKER) (test 0.88 mg/dL 0.57-1.25 wqmf=293) GLUCOSE RANDOM (BEAKER) 152 mg/dL 70-105 (test oflb=668) CALCIUM (BEAKER) (test 9.7 mg/dL 8.4-10.2 uekb=943) EGFR (BEAKER) (test 62 mL/min/1.73 sq m ESTIMATED GFR IS NOT iglb=0471) ACCURATE CREATININE CLEARANCE IN PREDICTING GLOMERULAR FILTRATION RATE. ESTIMATED GFR IS NOT APPLICABLE FOR DIALYSIS PATIENTS. HEPATIC FUNCTION [id number] 05:27:00 Test Item Value Reference Range Comments TOTAL PROTEIN (BEAKER) (test qiuf=587) 5.9 gm/dL 6.0-8.3 ALBUMIN (BEAKER) (test yces=0102) 3.2 g/dL 3.5-5.0 BILIRUBIN TOTAL (BEAKER) (test rraq=868) 1.1 mg/dL 0.2-1.2 BILIRUBIN DIRECT (BEAKER) (test onqm=968) 0.7 mg/dL 0.1-0.5 ALKALINE PHOSPHATASE (BEAKER) (test arjf=866) 77 U/L 40-150 AST (SGOT) (BEAKER) (test kxxk=101) 26 U/L 5-34 ALT (SGPT) (BEAKER) (test hsrf=416) 19 U/L 6-55 LACTIC ACID, [id number] 05:12:00 Test Item Value Reference Range Comments LACTATE BLOOD VENOUS (2) 0.9 mmol/L 0.5-2.2 Specimen slightly hemolyzed (BEAKER) (test xgqv=8325) CBC (HEMOGRAM ONLY)2018-08-12 05:00:00 Test Item Value Reference Range Comments WHITE BLOOD CELL COUNT (BEAKER) (test btbn=255) 12.8 K/ L 3.5-10.5 RED BLOOD CELL COUNT (BEAKER) (test idtk=146) 3.82 M/ L 3.93-5.22 HEMOGLOBIN (BEAKER) (test rjaq=664) 12.1 GM/DL 11.2-15.7 HEMATOCRIT (BEAKER) (test ijzv=568) 36.4 % 34.1-44.9 MEAN CORPUSCULAR VOLUME (BEAKER) (test wlyh=898) 95.3 fL 79.4-94.8 MEAN CORPUSCULAR HEMOGLOBIN (BEAKER) (test 31.7 pg 25.6-32.2 bwbr=232) MEAN CORPUSCULAR HEMOGLOBIN CONC (BEAKER) (test 33.2 GM/DL 32.2-35.5 aavt=309) RED CELL DISTRIBUTION WIDTH (BEAKER) (test 15.3 % 11.7-14.4 osgf=636) PLATELET COUNT (BEAKER) (test vjnj=861) 154 K/CU MM 150-450 MEAN PLATELET VOLUME (BEAKER) (test ieca=019) 11.0 fL 9.4-12.3 NUCLEATED RED BLOOD CELLS (BEAKER) (test 0 /100 WBC 0-0 vvpe=940) TROPONIN [id number] 01:40:00 Test Item Value Reference Range Comments TROPONIN I (BEAKER) (test ggub=489) 0.02 ng/mL 0.00-0.03 Troponin I (TnI) levels [...] acidosis, acute neurological disease, and persistent tachyarrhythmia.POCT-GLUCOSE [id number] 22:32:00 Test Item Value Reference Range Comments POC-GLUCOSE METER (BEAKER) 154 mg/dL 70-110 TESTED AT [facility] [address] (test kenv=5118) [facility] [address] [id number] 22:27:00 Test Item Value Reference Range Comments PROCALCITONIN (BEAKER) (test uuys=8245) < ng/mL <0.05 SEPSIS RISK (ng/mL)Low: 0.05-0.50Intermediate: 0.51-2.00High: & gt;=2.01TROPONIN [id number] 18:31:00 Test Item Value Reference Range Comments TROPONIN I (BEAKER) (test yxps=186) 0.01 ng/mL 0.00-0.03 Troponin I (TnI) levels [...] acidosis, acute neurological disease, and persistent tachyarrhythmia.POCT-GLUCOSE [id number] 12:21:00 Test Item Value Reference Range Comments POC-GLUCOSE METER (BEAKER) 178 mg/dL 70-110 TESTED AT [address] (test tmtg=6504) [facility] [address] RAD, ABDOMEN/KUB, 1 VIEW [id number] 11:42:00Reason for exam:->abdominal painShould this be performed [...] mesh is again seen. Signed: Ken Bunn [facility] Verified Date/ Time: 08/11/2018 11:42:12 Reading Location: [facility] Radiology Reading Room POCT -BLOOD GASES, [id number] 09:41:00 Test Item Value Reference Range Comments TEMP, CELSIUS-POC (BEAKER) 36.9 (test awot=5174) FIO2-POC (BEAKER) (test 28 TESTED AT [address] buwy=9364) [facility] [address] PH, VENOUS-POC (BEAKER) 7.344 7.320-7.420 (test qdic=8296) PCO2, VENOUS-POC (BEAKER) 48.8 mm Hg 41.0-51.0 (test agag=2175) PO2, VENOUS-POC (BEAKER) 36.0 mm Hg 25.0-40.0 (test vwqt=8472) SO2, VENOUS-POC (BEAKER) 66.0 % 40.0-70.0 (test rbij=1709) HCO3, VENOUS-POC (BEAKER) 26.6 meq/L 21.0-29.0 (test ulhr=3544) BASE EXCESS, VENOUS-POC 1.0 meq/L -2.0-3.0 (BEAKER) (test itsc=9383) [id number] 09:41:00 Test Item Value Reference Range Comments POC-SODIUM (BEAKER) (test 142 meq/L 135-148 TESTED AT [address] eczc=8227) [place] [id number] 09:41:00 Test Item Value Reference Range Comments POC-POTASSIUM (BEAKER) (test 3.6 meq/L 3.6-5.5 TESTED AT [address] dznc=0661) [place] [address] [id number] 09:41:00 Test Item Value Reference Range Comments POC-GLUCOSE (BEAKER) (test 165 mg/dL 70-110 TESTED AT [address] lxzz=5538) [place] [address] POCT-CALCIUM [id number] 09:41:00 Test Item Value Reference Range Comments POC-CALCIUM IONIZED (BEAKER) 1.50 mmol/L 1.12-1.27 TESTED AT [address] (test kzfr=4108) [place] [address] [id number] 09:41:00 Test Item Value Reference Range Comments POC-HEMATOCRIT (BEAKER) (test 34 % 36-45 TESTED AT [address] wqmh=0681) [place] [address] [id number] 09:41:00 Test Item Value Reference Range Comments POC-HEMOGLOBIN (BEAKER) 11.6 g/dL 12.0-15.0 TESTED AT [address] (test nbgn=6053) [place] [address]TESTED AT [place] [id number] POCT-LACTIC ACID, [id number] 09:41:00 Test Item Value Reference Range Comments POC-LACTIC ACID, VENOUS 0.9 mmol/L 0.9-1.7 TESTED AT [address] (BEAKER) (test sawd=4303) [place] [id number] URINALYSIS W/ REFLEX URINE [id number] 09:28:00 Test Item Value Reference Range Comments COLOR (BEAKER) (test bjqf=540) Yellow CLARITY (BEAKER) (test byuc=300) Clear SPECIFIC GRAVITY UA (BEAKER) (test vojo=748) 1.012 1.001-1.035 PH UA (BEAKER) (test wkkc=844) 6.0 5.0-8.0 PROTEIN UA (BEAKER) (test sfah=980) 10 mg/dL Negative GLUCOSE UA (BEAKER) (test ezgj=438) 50 mg/dL Negative KETONES UA (BEAKER) (test sksb=908) 20 mg/dL Negative BILIRUBIN UA (BEAKER) (test svrs=668) Negative Negative BLOOD UA (BEAKER) (test qniw=482) Moderate Negative NITRITE UA (BEAKER) (test xclr=528) Negative Negative LEUKOCYTE ESTERASE UA (BEAKER) (test qasi=585) Negative Negative UROBILINOGEN UA (BEAKER) (test sows=625) 0.2 mg/dL 0.2-1.0 RBC UA (BEAKER) (test xgri=172) 105 /HPF WBC UA (BEAKER) (test tewe=138) 2 /HPF SOURCE(BEAKER) (test tbjy=9530) POCT-GLUCOSE [id number] 09:17:00 Test Item Value Reference Range Comments POC-GLUCOSE METER (BEAKER) 172 mg/dL 70-110 TESTED AT [facility] [address] (test rjta=1394) [facility] [address] [id number] 06:43:00 Test Item Value Reference Range Comments MAGNESIUM (BEAKER) (test rzgu=236) 1.7 mg/dL 1.6-2.6 BASIC METABOLIC [id number] 06:43:00 Test Item Value Reference Range Comments SODIUM (BEAKER) (test 140 meq/L 136-145 gekz=299) POTASSIUM (BEAKER) (test 3.7 meq/L 3.5-5.1 mknj=644) CHLORIDE (BEAKER) (test 110 meq/L 98-107 lwzq=973) CO2 (BEAKER) (test 25 meq/L 22-29 stwm=827) BLOOD UREA NITROGEN 16 mg/dL 7-21 (BEAKER) (test uolu=643) CREATININE (BEAKER) (test 0.78 mg/dL 0.57-1.25 aivd=507) GLUCOSE RANDOM (BEAKER) 163 mg/dL 70-105 (test bgse=612) CALCIUM (BEAKER) (test 10.3 mg/dL 8.4-10.2 ufaf=205) EGFR (BEAKER) (test 71 mL/min/1.73 sq m ESTIMATED GFR IS NOT xagf=7161) ACCURATE CREATININE CLEARANCE IN PREDICTING GLOMERULAR FILTRATION RATE. ESTIMATED GFR IS NOT APPLICABLE FOR DIALYSIS PATIENTS. HEPATIC FUNCTION [id number] 06:43:00 Test Item Value Reference Range Comments TOTAL PROTEIN (BEAKER) (test gyna=192) 5.8 gm/dL 6.0-8.3 ALBUMIN (BEAKER) (test kwjw=2498) 3.2 g/dL 3.5-5.0 BILIRUBIN TOTAL (BEAKER) (test bhhc=203) 1.1 mg/dL 0.2-1.2 BILIRUBIN DIRECT (BEAKER) (test dcym=599) 0.7 mg/dL 0.1-0.5 ALKALINE PHOSPHATASE (BEAKER) (test wcbn=886) 76 U/L 40-150 AST (SGOT) (BEAKER) (test zjcc=736) 23 U/L 5-34 ALT (SGPT) (BEAKER) (test ymkh=269) 20 U/L 6-55 CBC (HEMOGRAM ONLY)2018-08-11 05:56:00 Test Item Value Reference Range Comments WHITE BLOOD CELL COUNT (BEAKER) (test tcjx=738) 15.2 K/ L 3.5-10.5 RED BLOOD CELL COUNT (BEAKER) (test peon=158) 3.68 M/ L 3.93-5.22 HEMOGLOBIN (BEAKER) (test zcic=027) 11.5 GM/DL 11.2-15.7 HEMATOCRIT (BEAKER) (test rtdq=202) 35.4 % 34.1-44.9 MEAN CORPUSCULAR VOLUME (BEAKER) (test nzlr=350) 96.2 fL 79.4-94.8 MEAN CORPUSCULAR HEMOGLOBIN (BEAKER) (test 31.3 pg 25.6-32.2 aibh=623) MEAN CORPUSCULAR HEMOGLOBIN CONC (BEAKER) (test 32.5 GM/DL 32.2-35.5 imta=818) RED CELL DISTRIBUTION WIDTH (BEAKER) (test 15.8 % 11.7-14.4 tdkx=282) PLATELET COUNT (BEAKER) (test qvst=457) 139 K/CU MM 150-450 MEAN PLATELET VOLUME (BEAKER) (test amte=785) 11.3 fL 9.4-12.3 NUCLEATED RED BLOOD CELLS (BEAKER) (test 0 /100 WBC 0-0 nlzg=506) TROPONIN [id number] 01:18:00 Test Item Value Reference Range Comments TROPONIN I (BEAKER) (test qwga=937) 0.04 ng/mL 0.00-0.03 Troponin I (TnI) levels [...] failure, acidosis, acute neurological disease, and persistent tachyarrhythmia.[id number] 01:13:00 Test Item Value Reference Range Comments MAGNESIUM (BEAKER) (test wfun=715) 1.6 mg/dL 1.6-2.6 BASIC METABOLIC [id number] 01:13:00 Test Item Value Reference Range Comments SODIUM (BEAKER) (test 138 meq/L 136-145 rlrq=454) POTASSIUM (BEAKER) (test 3.7 meq/L 3.5-5.1 vsnp=881) CHLORIDE (BEAKER) (test 109 meq/L 98-107 pxsd=574) CO2 (BEAKER) (test 26 meq/L 22-29 zrbf=232) BLOOD UREA NITROGEN 15 mg/dL 7-21 (BEAKER) (test qmdb=361) CREATININE (BEAKER) (test 0.74 mg/dL 0.57-1.25 wyjk=831) GLUCOSE RANDOM (BEAKER) 147 mg/dL 70-105 (test wgwm=691) CALCIUM (BEAKER) (test 10.0 mg/dL 8.4-10.2 kyqw=172) EGFR (BEAKER) (test 76 mL/min/1.73 sq m ESTIMATED GFR IS NOT pqzk=6008) ACCURATE CREATININE CLEARANCE IN PREDICTING GLOMERULAR FILTRATION RATE. ESTIMATED GFR IS NOT APPLICABLE FOR DIALYSIS PATIENTS. HEPATIC FUNCTION [id number] 01:13:00 Test Item Value Reference Range Comments TOTAL PROTEIN (BEAKER) (test xvbv=866) 5.8 gm/dL 6.0-8.3 ALBUMIN (BEAKER) (test jiei=2704) 3.1 g/dL 3.5-5.0 BILIRUBIN TOTAL (BEAKER) (test niot=152) 1.0 mg/dL 0.2-1.2 BILIRUBIN DIRECT (BEAKER) (test hhej=879) 0.6 mg/dL 0.1-0.5 ALKALINE PHOSPHATASE (BEAKER) (test mclo=676) 75 U/L 40-150 AST (SGOT) (BEAKER) (test jhlq=534) 20 U/L 5-34 ALT (SGPT) (BEAKER) (test scrt=123) 18 U/L 6-55 [id number] 01:13:00 Test Item Value Reference Range Comments LIPASE (BEAKER) (test xllk=977) 23 U/L 8-78 RAD, CHEST, 1 VIEW, NON [id number] 23:47:00Reason for exam:->piccShould this be performed at [...] MDReport Verified Date/Time: 08/10/2018 23:47:27 Reading Location: [address] Consult Reading Room POCT-GLUCOSE [id number] 23:29:00 Test Item Value Reference Range Comments POC-GLUCOSE METER (BEAKER) 158 mg/dL 70-110 TESTED AT [facility] [address] (test lqnz=6294) [facility] [address] HEMOGLOBIN [id number] 22:17:00 Test Item Value Reference Range Comments HEMOGLOBIN A1C (BEAKER) (test clvo=740) 7.5 % 4.3-6.1 T4, [id number] 20:54:00 Test Item Value Reference Range Comments FREE T4 (BEAKER) (test xqfr=278) 0.86 ng/dL 0.70-1.48 TSH/FREE T4 IF [id number] 20:22:00 Test Item Value Reference Range Comments THYROID STIMULATING HORMONE (BEAKER) (test 0.30 uIU/mL 0.35-4.94 lnjm=066) [id number] 19:31:00 Test Item Value Reference Range Comments AMMONIA (BEAKER) (test zglf=157) 29 mol/L 18-72 B-TYPE NATRIURETIC FACTOR (BNP)2018-08-10 18:48:00 Test Item Value Reference Range Comments B-TYPE NATRIURETIC PEPTIDE (BEAKER) (test 876 pg/mL 0-100 jqkc=216) LACTIC ACID, [id number] 18:47:00 Test Item Value Reference Range Comments LACTATE BLOOD VENOUS (2) 1.0 mmol/L 0.5-2.2 Specimen slightly hemolyzed (BEAKER) (test jryf=5805) POCT-GLUCOSE [id number] 18:30:00 Test Item Value Reference Range Comments POC-GLUCOSE METER (BEAKER) 149 mg/dL 70-110 TESTED AT [facility] [address] [facility] (test wlcv=5275) [facility] [address] [id number] 18:27:00 Test Item Value Reference Range Comments PROTIME (BEAKER) (test yscy=101) 14.8 seconds 11.9-14.2 INR (BEAKER) (test tgca=522) 1.2 <=5.9 PARTIAL THROMBOPLASTIN TIME (BEAKER) (test 30.3 seconds 22.5-36.0 drbo=301) Effective 07/15/2018: PT Reference Range ChangeNew: 11.9-14.2 Previous: 11.7- 14.7RECOMMENDED COUMADIN/WARFARIN INR THERAPY RANGESSTANDARD DOSE: 2.0-3.0 Includes: PROPHYLAXIS for venous thrombosis, systemic embolization; TREATMENT for venous thrombosis and/or pulmonary embolus.HIGH RISK: Target INR is2.5-3.5 for patients wiht mechanical heart valves.CBC W/PLT COUNT & AUTO [id number] 18:08:00 Test Item Value Reference Range Comments WHITE BLOOD CELL COUNT (BEAKER) (test crgz=738) 15.4 K/ L 3.5-10.5 RED BLOOD CELL COUNT (BEAKER) (test wkro=050) 3.77 M/ L 3.93-5.22 HEMOGLOBIN (BEAKER) (test bjpm=199) 11.8 GM/DL 11.2-15.7 HEMATOCRIT (BEAKER) (test hseq=511) 36.2 % 34.1-44.9 MEAN CORPUSCULAR VOLUME (BEAKER) (test sack=984) 96.0 fL 79.4-94.8 MEAN CORPUSCULAR HEMOGLOBIN (BEAKER) (test 31.3 pg 25.6-32.2 mfvx=592) MEAN CORPUSCULAR HEMOGLOBIN CONC (BEAKER) (test 32.6 GM/DL 32.2-35.5 kbtp=216) RED CELL DISTRIBUTION WIDTH (BEAKER) (test 16.1 % 11.7-14.4 htzo=687) PLATELET COUNT (BEAKER) (test chnx=241) 140 K/CU MM 150-450 MEAN PLATELET VOLUME (BEAKER) (test rtfu=725) 11.0 fL 9.4-12.3 NUCLEATED RED BLOOD CELLS (BEAKER) (test 0 /100 WBC 0-0 mttc=666) NEUTROPHILS RELATIVE PERCENT (BEAKER) (test 82 % cqjl=648) LYMPHOCYTES RELATIVE PERCENT (BEAKER) (test 8 % vpqq=663) MONOCYTES RELATIVE PERCENT (BEAKER) (test 8 % ofug=663) EOSINOPHILS RELATIVE PERCENT (BEAKER) (test 0 % kfew=289) BASOPHILS RELATIVE PERCENT (BEAKER) (test 0 % fktp=904) NEUTROPHILS ABSOLUTE COUNT (BEAKER) (test 12.69 K/ L 1.56-6.13 xpfa=702) LYMPHOCYTES ABSOLUTE COUNT (BEAKER) (test 1.24 K/ L 1.18-3.74 qevp=059) MONOCYTES ABSOLUTE COUNT (BEAKER) (test 1.21 K/ L 0.24-0.36 ymhz=754) EOSINOPHILS ABSOLUTE COUNT (BEAKER) (test 0.02 K/ L 0.04-0.36 gihk=656) BASOPHILS ABSOLUTE COUNT (BEAKER) (test 0.04 K/ L 0.01-0.08 bink=469) IMMATURE GRANULOCYTES-RELATIVE PERCENT (BEAKER) 2 % 0-1 (test scnr=2634)
[2018-10-03] MEDS ORDERED: ONDANSETRON 4 MG (ODT) TAB ONE (06:05)
[2018-10-03] MEDS ORDERED: NA CHLORIDE 0.9% 1,000 ML ONE (07:00)
[2018-10-03] MEDS ORDERED: NA CHLORIDE 0.9% 250 ML ONE (07:12)
[2018-10-03] MEDS ORDERED: PROMETHAZINE 25 MG/ML VIAL ONE (07:12)
[2018-10-03 07:22] LABS: Absolute Lymphocytes (CBC) 0.7 K/uL (0.7-4.9); Basophils % 0.4 % (0-1.3); Hematocrit 37.2 % (36.0-45.0); Lymphocytes % 6.8 % (15.3-44.8); MPV 9.2 fL (7.6-11.3); RBC Red Blood Cell Count 3.87 M/uL (3.86-4.86)
[2018-10-03 07:25] LABS: Protime INR 1.2
[2018-10-03 07:44] LABS: ALT/SGPT 11 U/L (12-78); AST/SGOT 10 U/L (15-37); Albumin 2.8 g/dL (3.4-5.0); Alkaline Phosphatase 94 U/L (45-117); BUN Blood Urea Nitrogen 12 mg/dL (7-18); Bicarbonate 26 mmol/L (21-32); Bilirubin Direct 0.1 mg/dL (0-0.2); Bilirubin Total 0.4 mg/dL (0.2-1.0); Glucose Level 171 mg/dL (74-106); Lipase 112 U/L (73-393); Magnesium 1.9 mg/dL (1.8-2.4); NT PRO-BNP 680 pg/mL (<450); Protein, Total 6.8 g/dL (6.4-8.2); Sodium Level 141 mmol/L (136-145); Troponin (Emerg Dept Use Only) < 0.02 ng/mL (0.0-0.045)
[2018-10-03 07:46] LABS: Urine Blood NEGATIVE (NEG); Urine Glucose NEGATIVE (NEG); Urine Protein NEGATIVE (NEG)
[2018-10-03 08:12] LABS: Urine Bacteria <20 /HPF (<20)
[2018-10-03 08:13] LABS: Urine Amorphous Sediment 2+ /HPF (NONE SEEN); Urine Culture Reflex Order NOT NEEDED; Urine Mucus 2+ /HPF (NONE SEEN)
--- NOTE | 2018-10-03 08:42 | RAD REPORT ---
EXAM DESCRIPTION: CTAbdomen Pelvis W Contrast - 10/03/2018 8:28 am CLINICAL HISTORY: Abdominal pain. Abd pain;Abdominal distention COMPARISON: <Comparisons> TECHNIQUE: Biphasic CT imaging of the abdomen and pelvis was performed with 100 ml non-ionic IV cont rast. All CT scans are performed using dose optimization technique as appropriate and may include automated exposure control or mA/KV adjustment according to patient size. FINDINGS: The lung bases are clear.Moderate pneumobilia is again seen. Cholecystectomy. The liver demonstrates no focal mass. The spleen, pancreas, adrenal glands are normal. The left kidne y contains a 9 mm cyst. The right kidney contains a 13 mm oblong stone in the right renal pelvis with mild right hydronephrosis. No bowel obstruction, free air, free fluid or abscess. Moderate fecal retention in the colon. Anterio r calcified hernia mesh again seen, chronic No evidence of significant lymphadenopathy. Moderate lumbar degenerative changes. IMPRESSION: 13 mm calculus in the right renal pelvis with mild right hydronephrosis. Moderate fecal retention in the colon.
--- NOTE | 2018-10-03 09:24 | ER ---
Nurse's Notes [facility] Name: Judy Puri Age: 78 yrs Sex: Female : 1940 Arrival Date: 10/03/2018 Time: 05:39 Bed 8 Private MD: Diagnosis: Generalized abdominal pain;Hydronephrosis with renal and ureteral calculous obstruction;Nausea and vomiting Presentation: 10/03 05:30 Presenting complaint: Patient states: that she was here at the beginging of the month and had to have gallstones removed. Then she was better. She then started to have abd pain, nausea and vomiting, was seen here on the 12th. Since then has had continued nausea and vomiting, which is worse this am. Transition of care: patient was not received from another setting of care. Onset of symptoms was September 28, 2018. Risk Assessment: Do you want to hurt yourself or someone else? Patient reports no desire to harm self or others. Initial Sepsis Screen: Does the patient meet any 2 criteria? HR > 90 bpm. Yes Does the patient have a suspected source of infection? No. Patient's initial sepsis screen is negative. Care prior to arrival: None. 05:30 Method Of Arrival: EMS: [facility] 05:30 Acuity: JONATHAN 3 fc Historical: - Allergies: 05:45 Codeine; 05:45 Propoxyphene HCl; - Home Meds: 09:29 Aspirin Oral [Active]; atorvastatin Oral [Active]; Celecoxib Oral [Active]; Furosemide hb Oral [Active]; gabapentin Oral [Active]; Glipizide Oral [Active]; Hydrocodone-Acetaminophen Oral [Active]; losartan Oral [Active]; Metoprolol Tartrate Oral [Active]; Omeprazole Oral [Active]; pantoprazole Oral [Active]; - PMHx: 05:45 Atrial Fib; Diabetes - NIDDM; Hypertension; Myocardial infarction; fc - PSHx: 05:45 Cholecystectomy; Hysterectomy; Heart stents; bladder lift x 3; fc - Immunization history:: Last tetanus immunization: unknown. - Social history:: Smoking status: Patient/guardian denies using tobacco, Patient/guardian denies using alcohol, street drugs. - Ebola Screening: : Patient negative for fever greater than or equal to 101.5 degrees Fahrenheit, and additional compatible Ebola Virus Disease symptoms Patient denies exposure to infectious person Patient denies travel to an Ebola-affected area in the 21 days before illness onset. Screenin:42 Abuse screen: Denies threats or abuse. Nutritional screening: No deficits noted. fc Tuberculosis screening: No symptoms or risk factors identified. 07:15 Fall Risk Total Chan Fall Scale indicates Low Risk Score (25-44 pts). Fall prevention hb measures have been instituted. Side Rails Up X 2 Frequent Obs/Assesments occuring Family Present and informed to notify staff if they need to leave bedside As available Patient and Family Educated on Fall Prevention Program and strategies. Assessment: 05:39 General: Appears in no apparent distress. uncomfortable, Behavior is calm, cooperative, jb4 appropriate for age. Pain: Complains of pain in abdomen Pain does not radiate. Pain currently is 0 out of 10 on a pain scale. Neuro: Level of Consciousness is awake, alert, obeys commands, Oriented to person, place, time, situation. Cardiovascular: Patient's skin is warm and dry. Respiratory: Airway is patent Respiratory effort is even, unlabored, Respiratory pattern is regular, symmetrical. GI: Abdomen is obese, Bowel sounds present X 4 quads. Abdomen is tender to palpation X 4 quads. Abd is rigid X 4 quads. : No deficits noted. No signs and/or symptoms were reported regarding the genitourinary system. EENT: No deficits noted. No signs and/or symptoms were reported regarding the EENT system. Derm: Skin is intact, Skin is pink, warm \T\ dry. Musculoskeletal: Circulation, motion, and sensation intact. Range of motion: intact in all extremities. 07:03 Reassessment: Patient appears in no apparent distress at this time. Patient and/or jb4 family updated on plan of care and expected duration. Pain level reassessed. Patient is alert, oriented x 3, equal unlabored respirations, skin warm/dry/pink. 07:30 General: Appears in no apparent distress. uncomfortable, Behavior is cooperative, sv anxious. Pain: Complains of pain in abdomen Pain currently is 5 out of 10 on a pain scale. Neuro: Level of Consciousness is awake, alert, obeys commands, Oriented to person, place, time, situation, After inserting the schmidt catheter pt started talking to something. Asked pt who she was talking to and pt stated to the cat up there (pointing to the ceiling). Informed pt that there was not a cat up there and reoriented pt.. Cardiovascular: Rhythm is sinus rhythm. Respiratory: Airway is patent Respiratory effort is even, unlabored, Respiratory pattern is regular, symmetrical. Derm: Skin is pink, warm \T\ dry. 09:00 Reassessment: Patient appears in no apparent distress at this time. Patient and/or hb family updated on plan of care and expected duration. Pain level reassessed. 09:15 Reassessment: Pt placed on bed ban, soft stool x 1. hb 10:00 Reassessment: Patient appears in no apparent distress at this time. Patient and/or hb family updated on plan of care and expected duration. Pain level reassessed. Patient is alert, oriented x 3, equal unlabored respirations, skin warm/dry/pink. Admission ordered, awaiting room assignment at this time. remains at bedside. Vital Signs: 05:30 BP 157 / 65; Pulse 102; Resp 20; Temp 100.7(O); Pulse Ox 95% on R/A; Weight 63.96 kg fc (R); Height 4 ft. 11 in. (149.86 cm) (R); Pain 10/10; 07:03 BP 175 / 60; Pulse 82; Resp 20; Pulse Ox 97% on R/A; jb4 07:44 BP 176 / 64; Pulse 89; Resp 14; Temp 98.2(O); Pulse Ox 96% ; sv 08:11 BP 133 / 91; Pulse 97; Resp 19; Pulse Ox 97% ; sv 09:01 BP 146 / 106; Pulse 91; Resp 19; Pulse Ox 96% ; sv 10:00 BP 130 / 86; Pulse 88; Resp 16; Pulse Ox 97% ; hb 05:30 Body Mass Index 28.48 (63.96 kg, 149.86 cm) ED Course: 05:30 Arm band placed on Patient placed in an exam room, on a stretcher. 05:39 Patient arrived in ED. 05:39 Sy Shipley, RN is Primary Nurse. jb4 05:42 Triage completed. 05:42 Patient has correct armband on for positive identification. Bed in low position. Call light in reach. Side rails up X2. Pulse ox on. NIBP on. 05:42 No provider procedures requiring assistance completed. 06:02 Charlette Cheung FNP-C [facility]. snw 06:02 Migue Lechuga MD is Attending Physician. snw 06:27 XRAY Chest (1 view) In Process Unspecified. EDMS 06:40 Missed attempt(s): 22 gauge in right forearm. fc 06:40 First set of blood cultures drawn by me. fc 06:58 Initial lab(s) drawn, by me, sent to lab. Second set of blood cultures drawn by me. fc Inserted 18 gauge 10 cm midline to right upper brachial vein on first attempt. Line with good blood return and flushes well. 07:12 EKG done, by ED staff, reviewed by Charlette ENRIQUEZ. dh3 07:35 Schmidt cath inserted, using sterile technique, 16 Fr., by me, balloon inflated, to sv gravity drainage, urine specimen collected. Patient tolerated poorly. 07:43 Urine Dipstick--Ancillary (enter results) Sent. sv 07:44 Basic Metabolic Panel Sent. sv 07:44 CBC with Diff Sent. sv 07:44 LFT's Sent. sv 07:44 Magnesium Sent. sv 07:44 NT PRO-BNP Sent. sv 07:44 PT-INR Sent. sv 07:44 Troponin (emerg Dept Use Only) Sent. sv 07:45 Primary Nurse role handed off by Sy Shipley, RN sv 07:45 Inna Ruelas, RN is Primary Nurse. sv 08:[address] Scan. sv 08:[address] via stretcher. sv 08:27 CT completed. Patient tolerated procedure well. Patient moved back from CT. mw3 08:28 CT Abd/Pelvis - IV Contrast Only In Process Unspecified. EDMS 09:00 Awaiting radiology results. Awaiting re-evaluation by ER provider. sv 09:20 Primary Nurse role handed off by Inna Ruelas, NATALI sv 09:21 Lamonte Abreu MD is Hospitalizing Provider. snw 09:27 Jessica Parada, RN is Primary Nurse. hb 10:58 Patient admitted, IV remains in place. hb Administered Medications: 06:11 Drug: Zofran 4 mg Route: PO; jb4 07:10 Follow up: Response: No adverse reaction sv 07:04 Drug: NS 0.9% 1000 ml Route: IV; Rate: 75 ml/hr; Site: right upper arm; jb4 11:30 Follow up: Response: No adverse reaction; IV Status: Infusion continued upon admission hb 07:30 Drug: Phenergan 25 mg Route: IVP; Site: right upper arm; sv 07:45 Follow up: Response: No adverse reaction sv 07:30 Drug: NS 0.9% 250 ml Route: IV; Rate: bolus; Site: right upper arm; sv 07:45 Follow up: Response: No adverse reaction; IV Status: Completed infusion; IV Intake: sv 250ml Point of Care Testing: Blood Glucose: 06:14 Blood Glucose: 176 mg/dL; ak1 Ranges: Intake: 07:45 IV: 250ml; Total: 250ml. sv Outcome: 09:23 Decision to Hospitalize by Provider. snw 10:58 Admitted to Tele accompanied by tech, family with patient, via stretcher, room 421, with chart. 10:58 Condition: stable 10:58 Instructed on the need for admit, Demonstrated understanding of instructions. 11:37 Patient left the ED. ph Signatures: Dispatcher [employer] Inna Romo, RN RN Charlette Winslow, FUNCTIONAL ANALYST-C FUNCTIONAL ANALYST-Csnw Nilsa Hare RN Monica Nazario RN RN ak1 Emerald Cline RN RN ph Baxter, Heather, RN RN Sy Shipley, NATALI RN jb4 Adelina Rocha 3 Faviola Watson 3
--- NOTE | 2018-10-03 09:25 | EDPHYS ---
Physician Documentation [facility] Name: Judy Puri Age: 78 yrs Sex: Female : 1940 Arrival Date: 10/03/2018 Time: 05:39 Bed 8 Private MD: ED Physician Migue Lechuga HPI: 10/03 07:25 This 78 yrs old Female presents to ER via EMS with complaints of snw Nausea/Vomiting. 07:25 The patient presents to the emergency department with nausea, vomiting. Onset: The snw symptoms/episode began/occurred 1 month(s) ago, and became worse this morning, and became persistent. Possible causes: recent isabel, recent dx of cystitis. Pt states N/V got so bad this am she needed to return to ED. The symptoms are aggravated by movement. Associated signs and symptoms: Pertinent positives: abdominal pain, fever, nausea, vomiting. Severity of symptoms: At their worst the symptoms were severe in the emergency department the symptoms are unchanged. The patient has experienced similar episodes in the past. as noted. Historical: - Allergies: 05:45 Codeine; fc 05:45 Propoxyphene HCl; fc - Home Meds: 09:29 Aspirin Oral [Active]; atorvastatin Oral [Active]; Celecoxib Oral [Active]; Furosemide hb Oral [Active]; gabapentin Oral [Active]; Glipizide Oral [Active]; Hydrocodone-Acetaminophen Oral [Active]; losartan Oral [Active]; Metoprolol Tartrate Oral [Active]; Omeprazole Oral [Active]; pantoprazole Oral [Active]; - PMHx: 05:45 Atrial Fib; Diabetes - NIDDM; Hypertension; Myocardial infarction; fc - PSHx: 05:45 Cholecystectomy; Hysterectomy; Heart stents; bladder lift x 3; fc - Immunization history:: Last tetanus immunization: unknown. - Social history:: Smoking status: Patient/guardian denies using tobacco, Patient/guardian denies using alcohol, street drugs. - Ebola Screening: : Patient negative for fever greater than or equal to 101.5 degrees Fahrenheit, and additional compatible Ebola Virus Disease symptoms Patient denies exposure to infectious person Patient denies travel to an Ebola-affected area in the 21 days before illness onset. ROS: 07:25 Eyes: Negative for injury, pain, redness, and discharge, ENT: Negative for injury, snw pain, and discharge, Neck: Negative for injury, pain, and swelling, Cardiovascular: Negative for chest pain, palpitations, and edema, Respiratory: Negative for shortness of breath, cough, wheezing, and pleuritic chest pain, Back: Negative for injury and pain, : Negative for injury, bleeding, discharge, and swelling, MS/Extremity: Negative for injury and deformity, Skin: Negative for injury, rash, and discoloration, Neuro: Negative for headache, weakness, numbness, tingling, and seizure, Psych: Negative for depression, anxiety, suicide ideation, homicidal ideation, and hallucinations. 07:25 Constitutional: Positive for body aches, fatigue, fever, malaise, poor PO intake. 07:25 Abdomen/GI: Positive for abdominal pain, nausea and vomiting. Exam: 09:23 Head/Face: Normocephalic, atraumatic. Eyes: Pupils equal round and reactive to light, snw extra-ocular motions intact. Lids and lashes normal. Conjunctiva and sclera are non-icteric and not injected. Cornea within normal limits. Periorbital areas with no swelling, redness, or edema. ENT: Nares patent. No nasal discharge, no septal abnormalities noted. Tympanic membranes are normal and external auditory canals are clear. Oropharynx with no redness, swelling, or masses, exudates, or evidence of obstruction, uvula midline. Mucous membranes moist. Neck: Trachea midline, no thyromegaly or masses palpated, and no cervical lymphadenopathy. Supple, full range of motion without nuchal rigidity, or vertebral point tenderness. No Meningismus. Chest/axilla: Normal chest wall appearance and motion. Nontender with no deformity. No lesions are appreciated. 09:23 Respiratory: Lungs have equal breath sounds bilaterally, clear to auscultation and percussion. No rales, rhonchi or wheezes noted. No increased work of breathing, no retractions or nasal flaring. 09:23 Back: No spinal tenderness. No costovertebral tenderness. Full range of motion. Skin: Warm, dry with normal turgor. Normal color with no rashes, no lesions, and no evidence of cellulitis. MS/ Extremity: Pulses equal, no cyanosis. Neurovascular intact. Full, normal range of motion. 09:23 Constitutional: The patient appears awake, anxious, listless, obese. 09:23 Cardiovascular: Rate: tachycardic, Rhythm: irregularly irregular, Pulses: no pulse deficits are appreciated. 09:23 Abdomen/GI: Inspection: obese Bowel sounds: diminished, in all quadrants, Palpation: moderate abdominal tenderness, in the right upper quadrant, right lower quadrant and left lower quadrant. 09:23 Neuro: Orientation: appropriate for stated age, Mentation: responsive to voice confused, Memory: unable to test, Babinski testing is normal, seizure activity, is not displayed by the patient. Vital Signs: 05:30 BP 157 / 65; Pulse 102; Resp 20; Temp 100.7(O); Pulse Ox 95% on R/A; Weight 63.96 kg fc (R); Height 4 ft. 11 in. (149.86 cm) (R); Pain 10/10; 07:03 BP 175 / 60; Pulse 82; Resp 20; Pulse Ox 97% on R/A; jb4 07:44 BP 176 / 64; Pulse 89; Resp 14; Temp 98.2(O); Pulse Ox 96% ; sv 08:11 BP 133 / 91; Pulse 97; Resp 19; Pulse Ox 97% ; sv 09:01 BP 146 / 106; Pulse 91; Resp 19; Pulse Ox 96% ; sv 10:00 BP 130 / 86; Pulse 88; Resp 16; Pulse Ox 97% ; hb 05:30 Body Mass Index 28.48 (63.96 kg, 149.86 cm) fc MDM: 06:03 Patient medically screened. snw 09:23 Data reviewed: vital signs, nurses notes. Data interpreted: Pulse oximetry: on room air snw is 96 %. Interpretation: acceptable. Counseling: I had a detailed discussion with the patient and/or guardian regarding: the historical points, exam findings, and any diagnostic results supporting the discharge/admit diagnosis, the presence of at least one elevated blood pressure reading (>120/80) during this emergency department visit, lab results, radiology results, the need for further work-up and treatment in the hospital. Physician consultation: Lamonte Abreu MD was called at 09:23, was contacted at 09:23, regarding admission, to the telemetry unit. 10/03 06:10 Order name: Basic Metabolic Panel snw 10/03 06:10 Order name: CBC with Diff snw 10/03 06:10 Order name: LFT's sn 10/03 06:10 Order name: Magnesium snw 10/03 06:10 Order name: NT PRO-BNP snw 10/03 06:10 Order name: PT-INR snw 10/03 06:10 Order name: Troponin (emerg Dept Use Only) snw 10/03 06:10 Order name: Blood Culture Adult (2) snw 10/03 06:10 Order name: Lipase; Complete Time: 07:48 snw 10/03 06:10 Order name: Urine Culture snw 10/03 06:10 Order name: Urine Microscopic Only; Complete Time: 08:47 snw 10/03 06:11 Order name: Basic Metabolic Panel; Complete Time: 07:48 EDMS 10/03 06:11 Order name: CBC with Automated Diff; Complete Time: 07:23 EDMS 10/03 06:11 Order name: Liver (Hepatic) Function; Complete Time: 07:48 EDMS 10/03 06:10 Order name: XRAY Chest (1 view) sn 10/03 06:11 Order name: Magnesium; Complete Time: 07:48 EDMS 10/03 06:11 Order name: NT PRO-BNP; Complete Time: 07:48 EDMS 10/03 06:11 Order name: Protime (+INR); Complete Time: 07:49 EDMS 10/03 06:11 Order name: Troponin (Emerg Dept Use Only); Complete Time: 07:48 EDMS 10/03 06:14 Order name: Finger stick results - FOR PT WITH NO ID; Complete Time: 07:08 ak1 10/03 07:42 Order name: Urine Dipstick--Ancillary (enter results); Complete Time: 07:48 eb 10/03 07:53 Order name: CT Abd/Pelvis - IV Contrast Only; Complete Time: 08:47 snw 10/03 09:56 Order name: Comprehensive Metabolic Panel EDMS 10/03 09:56 Order name: Comprehensive Metabolic Panel EDMS 10/03 09:57 Order name: CBC with Automated Diff EDMS 10/03 09:57 Order name: CBC with Automated Diff EDMS 10/03 09:57 Order name: Chest Pa And Lat (2 Views) EDMS 10/03 09:57 Order name: Chest Pa And Lat (2 Views) EDMS 10/03 06:10 Order name: EKG; Complete Time: 06:12 snw 10/03 06:10 Order name: Cardiac monitoring; Complete Time: 07:44 snw 10/03 06:10 Order name: EKG - Nurse/Tech; Complete Time: 07:09 snw 10/03 06:10 Order name: IV Saline Lock; Complete Time: 06:57 snw 10/03 06:10 Order name: Labs collected and sent; Complete Time: 06:57 snw 10/03 06:10 Order name: O2 Per Protocol; Complete Time: 06:57 snw 10/03 06:10 Order name: O2 Sat Monitoring; Complete Time: 06:57 snw 10/03 06:10 Order name: Urine Dipstick-Ancillary (obtain specimen); Complete Time: 07:44 snw 10/03 06:10 Order name: Webb; Complete Time: 07:44 snw 10/03 06:10 Order name: Cath; Complete Time: 07:43 snw 10/03 09:56 Order name: CONS Pharmacy Consult ED[facility] 10/03 09:56 Order name: CONS Physician Consult [facility] 10/03 09:56 Order name: NPO EDMS Administered Medications: 06:11 Drug: Zofran 4 mg Route: PO; jb4 07:10 Follow up: Response: No adverse reaction sv 07:04 Drug: NS 0.9% 1000 ml Route: IV; Rate: 75 ml/hr; Site: right upper arm; jb4 11:30 Follow up: Response: No adverse reaction; IV Status: Infusion continued upon admission hb 07:30 Drug: Phenergan 25 mg Route: IVP; Site: right upper arm; sv 07:45 Follow up: Response: No adverse reaction sv 07:30 Drug: NS 0.9% 250 ml Route: IV; Rate: bolus; Site: right upper arm; sv 07:45 Follow up: Response: No adverse reaction; IV Status: Completed infusion; IV Intake: sv 250ml Point of Care Testing: Blood Glucose: 06:14 Blood Glucose: 176 mg/dL; ak1 Ranges: Critical Glucose Levels:Adult <50 mg/dl or >400 mg/dl <40 mg/dl or >180 mg/dl Disposition: 10/04 06:02 Co-signature as Attending Physician, Migue Lechuga MD I agree with the assessment and tw4 plan of care. Disposition: 10/03/18 09:23 Hospitalization ordered by Lamonte Abreu for Inpatient Admission. Preliminary diagnosis are Generalized abdominal pain, Hydronephrosis with renal and ureteral calculous obstruction, Nausea and vomiting. - Bed requested for Telemetry/MedSurg (Inpatient). - Status is Inpatient Admission. ph - Condition is Stable. - Problem is an acute exacerbation. - Symptoms have worsened. UTI on Admission? No Signatures: Dispatcher [employer] EDInna French, RN RN Devi Rosario RN RN dw Charlette Cheung, DIRECTOR MERIT SYSTEM-C DIRECTOR MERIT SYSTEM-Csnw Nilsa Hare, RN RN Emerald Cline, RN NATALI Jessica Parada, RN NATALI Sy Shipley RN RN jb4 Migue Lechuga MD MD tw4 Corrections: (The following items were deleted from the chart) 10/03 10:35 09:23 Hospitalization Ordered by Lamonte Abreu MD for Inpatient Admission. dw Preliminary diagnosis is Generalized abdominal pain; Hydronephrosis with renal and ureteral calculous obstruction; Nausea and vomiting. Bed requested for Telemetry/MedSurg (Inpatient). Status is Inpatient Admission. Condition is Stable. Problem is an acute exacerbation. Symptoms have worsened. UTI on Admission? No. snw 11:37 10:35 10/03/2018 09:23 Hospitalization Ordered by Lamonte Abreu MD for Inpatient ph Admission. Preliminary diagnosis is Generalized abdominal pain; Hydronephrosis with renal and ureteral calculous obstruction; Nausea and vomiting. Bed requested for Telemetry/MedSurg (Inpatient). Status is Inpatient Admission. Condition is Stable. Problem is an acute exacerbation. Symptoms have worsened. UTI on Admission? No. dw
[2018-10-03] MEDS ORDERED: MORPHINE 2 MG/ML SYR IV PRN (09:53)
[2018-10-03] MEDS ORDERED: NA CHLORIDE 0.9% 1,000 ML IV SCH (10:00)
[2018-10-03 11:56] VITALS: BMI 28.5
--- NOTE | 2018-10-03 12:17 | RAD REPORT ---
EXAM DESCRIPTION: RAD - Chest Single View - 10/03/2018 6:29 am CLINICAL HISTORY: ABDOMINAL DISTENTION Chest pain. COMPARISON: Chest Single View dated 09/07/2018; Chest Single View dated 08/09/2018; Chest Single View dated 08/07/2018; Chest Single View dated 06/08/2018 FINDINGS: Portable technique limits examination quality. The lungs are emphysematous but grossly clear. The heart is normal in size. No displaced fractures. IMPRESSION: Mild COPD.
[2018-10-03] MEDS: MORPHINE 4 MG/ML SYR IV PRN ×4 (14:07→20:15)
[2018-10-03] MEDS: ONDANSETRON 4 MG/2 ML VIAL IV PRN (15:42)
[2018-10-03] MEDS: D5W 1,000 ML with NA BICARB 8.4% 100 MEQ IV SCH ×2 (17:13)
--- NOTE | 2018-10-03 17:21 | RAD REPORT ---
EXAM DESCRIPTION: RAD - Abdomen 1 View (KUB) - 10/03/2018 5:12 pm CLINICAL HISTORY: check r renal pelvic stone if visible Pain COMPARISON: Abdomen Pelvis W Contrast dated 10/03/2018 FINDINGS: The bowel gas pattern is non-obstructive. No evidence of free air or pneumatosis. The amy ent's known right renal stone appears obscured by retained contrast material in the right collecting system.
--- NOTE | 2018-10-03 18:11 | CON ---
History Of Present Illness: A 78-year-old lady who came in with epigastric and left upper quadrant pain. She had a CT scan done showing a 13 mm stone in her right renal pelvis with minimal hydronephrosis, seems like she may have an intermittent obstruction on this side. I do not believe this explain the pain she is having on the left side. She does not need a stent or anything at this time. The Hounsfield units from the stone is low in the 500s, may be a uric acid stone. We are going to alkalinize her urine for now and hydration, but I believe her pain is caused by something else, and she does not need to be in the hospital for this kidney stone. Interestingly, she had an ultrasound done in August of this year showed an 11 x 10 mm slightly complex cyst on the left kidney that will need some type of followup in 6 months. Allergies: TO CODEINE, AND DARVON. Home Medications: Reviewed, gabapentin, hydrocodone, Lipitor, aspirin, Lasix, probiotic, losartan, potassium, Lopressor. Past Medical History: Diabetes type 2, chronic neck pain, hypertension, history of coronary artery disease with stent, chronic atrial fibrillation, diabetic neuropathy, hysterectomy, bladder suspension x3, cholecystectomy, heart catheterization, stent, ERCP, removal of gallstone. Social History: . No children. Never smoked. Alcohol none. Drugs none. Caffeine use none. Resides at home. Family History: Noncontributory. Father had heart disease, brother with heart disease. Review of Systems: As mentioned above. Physical Examination: General: She was lying, relaxed. When I came in the room said lamontechet, she jumped like she was scared of something. Her nurse was with me at that time, but she is oriented. HEENT: Atraumatic, normocephalic. Neck: Supple. Respiratory: Clear. Cardiovascular: S1, S2. Gastrointestinal: Soft. Skin: No rashes. Laboratory Data: White count 11.0, H and H are 12 and 37, platelet count 159. Coagulation: PT 14.1, INR 1.2. Chemistry normal except for GFR of 45 and a glucose of 171. Urine study: UA shows 5 to 10 rbc's, less than 5 wbc's, squamous cells 5 to 10, so more significant for contamination. Assessment: 11 to 13 mm stone, right renal pelvis, possible ball-valve effect over a very minimal hydronephrosis. I do not believe her stone is the cause for her problem. She can lay on the right side for this to pop the stone out to the funnel. I do not think she needs a stent or anything at this time. We will check a uric acid level. Check a KUB and go from there. She may need a possible ESWL with iodine to see the uric acid stone later as an elective. From my point of view, patient does not need to be in the hospital for this kidney stone. NATE/GUME Voice ID: [id number] Report ID: [id number] LAKESHIA
[2018-10-03] MEDS ORDERED: HYDROCODONE/APAP 5/325 MG TAB PO PRN (19:12)
[2018-10-03] MEDS: GABAPENTIN 100 MG CAP PO SCH (20:15)
[2018-10-03] MEDS: glipiZIDE 5 MG TAB PO SCH (20:15)
[2018-10-03] MEDS: METOPROLOL TAR 50 MG TAB PO SCH (21:00)
[2018-10-03] MEDS ORDERED: HYDROMORPHONE HCL 1 MG/ML INJ IV ONE (21:07)
[2018-10-04] MEDS: ONDANSETRON 4 MG/2 ML VIAL IV PRN ×3 (00:47→19:45)
[2018-10-04] MEDS: MORPHINE 4 MG/ML SYR IV PRN ×3 (03:20→21:56)
[2018-10-04] MEDS: D5W 1,000 ML with NA BICARB 8.4% 100 MEQ IV SCH ×2 (03:22)
[2018-10-04] MEDS: PANTOPRAZOLE 40MG TABLET PO SCH (05:28)
[2018-10-04 06:09] LABS: Albumin 2.6 g/dL (3.4-5.0); Bilirubin Total 0.2 mg/dL (0.2-1.0); Potassium 4.1 mmol/L (3.5-5.1); Protein, Total 6.1 g/dL (6.4-8.2)
[2018-10-04 06:24] LABS: Absolute Lymphocytes (CBC) 1.1 K/uL (0.7-4.9); Basophils % 0.5 % (0-1.3); Hematocrit 33.6 % (36.0-45.0); Lymphocytes % 12.7 % (15.3-44.8); MPV 8.9 fL (7.6-11.3); RBC Red Blood Cell Count 3.55 M/uL (3.86-4.86)
[2018-10-04] MEDS ORDERED: DIPHENHYDRAMINE 50 MG/ML VIAL IV ONE (06:25)
[2018-10-04] MEDS ORDERED: POLYETHYL GLY 3350 17 GM/DOSE PO ONE (08:00)
--- NOTE | 2018-10-04 08:43 | RAD REPORT ---
EXAM DESCRIPTION: RAD - Abdomen 1 View (KUB) - 10/03/2018 9:29 pm CLINICAL HISTORY: Abdomen pain. FINDINGS: The bowel gas pattern is unremarkable. 10 millimeter calculus in the region of right renal pelvis
--- NOTE | 2018-10-04 08:44 | RAD REPORT ---
EXAM DESCRIPTION: Chelsie Desouza (2 Views)10/04/2018 6:10 am CLINICAL HISTORY: Shortness of breath COMPARISON: September 2018 FINDINGS: The lungs appear clear of acute infiltrate. The heart is moderately enlarged IMPRESSION: No acute abnormalities displayed
--- NOTE | 2018-10-04 08:55 | EKG ---
Test Date: 2018-10-03 Test Time: 07:07:17 Floor Scraper: LUPE MEASUREMENT RESULTS: Intervals: Rate: 82 ID: [id number] QRSD: 78 QT: 318 QTc: 371 [place]: P: 85 ID: [id number] QRS: 21 T: 90 INTERPRETIVE STATEMENTS: Normal sinus rhythm T wave abnormality, consider lateral ischemia Abnormal ECG Compared to ECG 09/07/2018 18:36:54 T-wave abnormality now present Possible ischemia now present Sinus bradycardia no longer present Electronically Signed On 10-04-18 08:54:21 CDT by Christoph Houser
[2018-10-04] MEDS ORDERED: FUROSEMIDE 20 MG TABLET PO SCH (09:00)
[2018-10-04] MEDS: METOPROLOL TAR 50 MG TAB PO SCH ×2 (09:30→21:00)
[2018-10-04] MEDS: GABAPENTIN 100 MG CAP PO SCH ×2 (09:32→21:56)
[2018-10-04] MEDS: glipiZIDE 5 MG TAB PO SCH (09:32)
[2018-10-04] MEDS: ASPIRIN 81 MG CHEWABLE TABLET PO SCH (09:32)
[2018-10-04] MEDS: LOSARTAN POTASSIUM 50 MG TABLET PO SCH (09:32)
--- NOTE | 2018-10-04 09:36 | P.HP ---
Certification for Inpatient Patient admitted to: Inpatient With expected LOS: >2 Midnights Practitioner: I am a practitioner with admitting privileges, knowledge of patient current condition, hospital course, and medical plan of care. Services: Services provided to patient in accordance with Admission requirements found in Title 42 Section 412.3 of the Code of Federal Regulations Patient History Date of Service: 10/04/18 (Hospitalist) Reason for admission: Abdominal pain nausea vomiting History of Present Illness: Patient is 78 years of age brought to the emergency room by the patient's is been having nausea vomiting abdominal pain for the past 2 weeks she was at [facility] in [place] this became progressively war patient denies any pulmonary complaints plays of significant abdominal tenderness for a mild right-sided hydronephrosis and a calculus and patient was admitted to the hospital Allergies codeine Adverse Reaction (Mild, Verified 05/03/16 12:51) Rash propoxyphene HCl [From Darvon] Adverse Reaction (Verified 05/03/16 12:51) Rash Home Medications: Aspirin 1 tab PO DAILY 10/03/18 Atorvastatin Calcium 1 tab PO DAILY 10/03/18 Cetirizine HCl [Zyrtec] 10 mg PO DAILY 10/03/18 Furosemide 20 mg PO DAILY 10/03/18 Gabapentin 1 tab PO BID 10/03/18 Hydrocodone 5/APAP 325 [[place] 5/325*] 1 tab PO Q6H PRN 10/03/18 Krill/[place]-3/Dha/Epa/Lipids [Krill Oil 350 mg Softgel] 1 cap PO DAILY 10/03/18 L.acidoph,Paracasei, B.lactis [Probiotic] 1 cap PO DAILY 10/03/18 Losartan Potassium 100 mg PO DAILY 10/03/18 Metoprolol Tartrate 1 tab PO BID 10/03/18 Mv-Mn/Folic Acid/Vit K/Uual860 [Alive Once Daily Women 50 Plus] 1 tab PO DAILY 10/03/18 Omeprazole [Prilosec] 40 mg PO DAILY 10/03/18 Sennosides/Docusate Sodium [Senna Laxative Tablet] 2 tab PO BID 10/03/18 glipiZIDE [Glipizide] 1 tab PO BID 10/03/18 - Past Medical/Surgical History Has patient received pneumonia vaccine in the past: Yes Diabetic: Yes -: Diabetes mellitus type 2, non insulin dependent -: Chronic neck pain with chronic headaches -: HTN -: History of CAD/stent -: hyperlipidemia -: Diabetic neuropathy -: Hysterectomy -: Bladder suspension x3 -: Cholecystectomy -: Heart catheterization with stent -: ERCP with removal of stone Psychosocial/ Personal History: Patient is . She has no children - Family History Father -: Heart disease Brother -: Heart disease - Social History Smoking Status: Never smoker Alcohol use: No CD- Drugs: No Caffeine use: Yes Place of Residence: Home Review of Systems 10-point ROS is otherwise unremarkable Gastrointestinal: As per HPI Physical Examination - Vital Signs Temperature: 98.3 F Blood Pressure: 139/71 Pulse: 64 Respirations: 18 Pulse Ox (%): 95 - Physical Exam General: Alert, Severe distress Neck: Supple Respiratory: Clear to auscultation bilaterally Cardiovascular: No edema, Regular rate/rhythm Gastrointestinal: Normal bowel sounds, Tenderness, Rebound Musculoskeletal: No clubbing, No swelling Assessment and Plan - Problems (Diagnosis) (1) Abdominal pain Current Visit: Yes Status: Acute Plan: Patient is 78 years of age has a chronic abdominal pain complaining of nausea she is very tender patient was at [facility] recently was just discharged as been is not very clear about the DT ill seems out had a concussion his very tender seen by a chemical packager labs so far nondiagnostic white count minimally elevated lipase normal diagnostic studies including CT scan of the abdomen were all nondiagnostic she is a nephrolithiasis in the right side seen by Nephrology admit for observation Qualifiers: Abdominal location: unspecified location Qualified Code(s): R10.9 - Unspecified abdominal pain - Advance Directives Does patient have a Living Will: Yes Does patient have a Durable POA for Healthcare: No
--- NOTE | 2018-10-04 09:43 | P.PN ---
Subjective Date of Service: 10/04/18 (Hospitalist) Chief Complaint: Abdominal pain nausea vomiting No change patient still complaining of abdominal pain nausea Review of Systems General: Weakness Gastrointestinal: Nausea, Vomiting, Abdominal Pain Physical Examination - Vital Signs Temperature: 98.3 F Blood Pressure: 139/71 Pulse: 64 Respirations: 18 Pulse Ox (%): 95 - Physical Exam General: Alert, Moderate distress Respiratory: Clear to auscultation bilaterally Cardiovascular: No edema, Regular rate/rhythm Gastrointestinal: Tenderness, Rebound Assessment & Plan - Problems (Diagnosis) (1) Abdominal pain Current Visit: Yes Status: Acute Plan: Patient admitted with chronic abdominal pain nausea vomiting very tender rebound per adelina data and nondiagnostic also general surgery seen by Nephrology no evidence of ongoing sepsis labs ordered lipase amylase LDH and lactate vital signs stable Qualifiers: Abdominal location: unspecified location Qualified Code(s): R10.9 - Unspecified abdominal pain
[2018-10-04] MEDS ORDERED: GLUCAGON 1 MG/VIAL IM PRN (09:45)
[2018-10-04] MEDS ORDERED: D50W 25 GM/50 ML SYRINGE IV PRN (09:45)
[2018-10-04 10:25] LABS: Amylase Level 19 U/L (25-115); Lipase 78 U/L (73-393)
--- NOTE | 2018-10-04 11:08 | CON ---
Date of Consultation: 10/04/2018 Brief History Of Present Illness: The patient is a 78-year-old female, who was brought into the hospital by her yesterday with complaints of persistent nausea, vomiting, and abdominal pain. The patient's symptoms she states began back in August, at which point, she was brought to the e mergency room here by her 's report. Ultimately was seen at this time and noted to have isabel docholithiasis, as such, she was transferred to [facility] in [place] and she had an E CONTENT MANAGEMENT CONSULTANT with stone extraction at that time, developed subsequent pancreatitis, but was admitted shortly t hereafter. Her pain and symptoms improved somewhat, but ultimately she came back to the hospital wit h noncardiac chest pain at one point and was discharged shortly thereafter and now she comes back wit h approximately 1- to 2-day history of global abdominal pain worse in the left lower quadrant, persis tent nausea, vomiting, and inability to tolerate p.o. These symptoms are similar to when she had her stone extraction/ERCP, but they are not as intense, but continue to be significant enough for her to have required hospitalization and IV pain medication by her report. Past Medical History: Significant for diabetes, chronic neck pain, chronic headaches, hypertension, coronary artery disease with coronary artery stents, hyperlipidemia, diabetic neuropathy. Past Surgical History: Hysterectomy, bladder suspension x3, cholecystectomy, heart catheterization w ith stent, ERCP with stone extraction, multiple abdominal hernia repairs with mesh. Her last colonos copy/endoscopy, which was non-ERCP related was approximately 4 to 5 years ago. Social History: She denies smoking, alcohol, recreational drug use. Family History: Heart disease in her brother and father. Allergies: CODEINE AND DARVON. Home Medications: Aspirin, atorvastatin, Zyrtec, Lasix, gabapentin, [place], omega-3 Krill, probiotic, losartan, metoprolol, multivitamin, Prilosec, senna, and glipizide. Review of Systems: A 10-point review of systems other than HPI, she continues to have nausea and vomiting. Otherwise, n o acute complaints. Physical Examination: Vital Signs: At the time of my examination, BMI is 28.5, blood pressure 139/71, pulse 64, respirator y rate 18, temperature 98.3. General: She is awake, alert, and oriented. Psychiatric: She is appropriate and conversive, but appears in somewhat mild discomfort. She spits up in the bag during our discussion, but there is no emesis. HEENT: She is otherwise normocephalic. Her sclerae are anicteric. Her mucosa is moist. Oropharynx is clear. Chest: Normal expansion and excursion. Cardiovascular: Regular rate and rhythm. Pulmonary: Clear to auscultation bilaterally. Abdomen: Soft with positive global tenderness to palpation. She has some mild distention. Mild vol untary guarding, however, she is hypersensitive to touch. Anywhere you touch the patient, she has hy peractive startle reflex. Touching arms, extremities, abdomen, chest, any region, she has hyperactiv e startle reflex. As such, her abdominal exam is somewhat difficult initially, but with distraction, it is easier to obtain. She has well-healed surgical scars and has firmness to the abdominal wall c onsistent with mesh placement. Extremities: No clubbing, cyanosis, or edema. Skin: Warm and dry. Laboratory Data: Reveals white blood cell count of 8.3, hemoglobin 11.3, hematocrit 33.6, platelet c ount is 153, neutrophils 74%. PT 14.1, INR 1.2. Sodium 139, potassium 4.1, chloride 101, carbon eleuterio xide 32, BUN 13, creatinine 0.8, glucose was 127. Uric acid is 7. Her total bilirubin is 0.2, direc t component on admission was 0.1. AST is 13, ALT 11, alkaline phosphatase is 85. LDH is 109. Tropo yamel is less than 0.02. ProBNP is 680. Lipase was 78, amylase was 17. She had a UA, which showed 5 to 10 red blood cells, squamous cells, and amorphous sediments. She had imaging performed, which inc luded a KUB initially on 10/03, which was officially read as bowel gas pattern is nonobstructive. No evidence of free air or pneumatosis. The patient's known right renal stone appears obscured by jeison ined contrast material in the right collecting system. She had a chest x-ray performed as well, whic h was officially read as mild COPD. She had a CT scan of the abdomen and pelvis, which was officiall y read as 13 mm calculus in the right renal pelvis with mild right hydronephrosis, moderate fecal ret ention in the colon. She had another KUB, which was officially read as bowel gas pattern is unremark able, 10 mm calculus in the region of the right renal pelvis. Assessment And Plan: 1.This is a 78-year-old female, who came in with recurrent abdominal pain of a similar type, status post ERCP in the recent past. Her LFTs are normal, but given her history of pancreatitis, I recommen d continued workup for possible pancreatitis. 2.We will order upper GI and small bowel followthrough series with gastrointestinal transit time of both stomach and small bowel to see if there is a motility issue, which might be contributing to her overall picture. 3.Continue serial exams. 4.Continue medical management with IV fluid hydration. 5.I have recommended placing an NG tube for stomach decompression, however, patient has refused this at this time. As such, I will follow along with you. Thank you for this interesting consult. ISAAC/GUME Voice ID: [id number] Report ID: [id number]
[2018-10-04] MEDS ORDERED: INSULIN -REGULAR HUMAN 50 UNIT/0.5 ML ML SQ SCH (11:30)
[2018-10-04] MEDS ORDERED: D5W 1,000 ML with NA BICARB 8.4% 100 MEQ IV SCH ×2 (14:00)
[2018-10-04] MEDS ORDERED: ENOXAPARIN 40 MG/0.4 ML SQ SCH (17:00)
[2018-10-04] MEDS: INSULIN -REGULAR HUMAN 50 UNIT/0.5 ML ML SQ SCH (18:00)
[2018-10-04] MEDS: D5 0.45 NS 1,000 ML IV SCH (21:59)
[2018-10-05] MEDS ORDERED: HYDROCODONE/APAP 10/325 TAB PO PRN (00:40)
[2018-10-05] MEDS: ONDANSETRON 4 MG/2 ML VIAL IV PRN ×3 (00:49→16:37)
[2018-10-05] MEDS: MORPHINE 4 MG/ML SYR IV PRN (00:49)
[2018-10-05 05:13] LABS: Absolute Lymphocytes (CBC) 1.4 K/uL (0.7-4.9); Basophils % 0.5 % (0-1.3); Hematocrit 34.5 % (36.0-45.0); Lymphocytes % 21.2 % (15.3-44.8); MPV 8.7 fL (7.6-11.3); RBC Red Blood Cell Count 3.67 M/uL (3.86-4.86)
[2018-10-05 05:32] LABS: Albumin 2.5 g/dL (3.4-5.0); Bilirubin Total 0.3 mg/dL (0.2-1.0); Magnesium 1.7 mg/dL (1.8-2.4); Protein, Total 5.8 g/dL (6.4-8.2)
[2018-10-05] MEDS: INSULIN -REGULAR HUMAN 50 UNIT/0.5 ML ML SQ SCH ×5 (06:00→20:42)
[2018-10-05] MEDS: PANTOPRAZOLE 40MG TABLET PO SCH (06:53)
[2018-10-05] MEDS: ASPIRIN 81 MG CHEWABLE TABLET PO SCH (09:00)
[2018-10-05] MEDS: METOPROLOL TAR 50 MG TAB PO SCH ×2 (09:00→20:42)
[2018-10-05] MEDS: GABAPENTIN 100 MG CAP PO SCH ×2 (09:00→20:41)
[2018-10-05] MEDS ORDERED: MAGNESIUM SULFATE 1 gm IVPB 1 GM/100 ML BAG IV ONE (09:00)
[2018-10-05] MEDS: LOSARTAN POTASSIUM 50 MG TABLET PO SCH (09:00)
--- NOTE | 2018-10-05 09:13 | P.PN ---
Subjective Date of Service: 10/05/18 Chief Complaint: Abdominal pain nausea vomiting Subjective: Improving (Pain much improved, but not completely resolved, + DM and gas yesterday with diarrhea, nausea much improved) Physical Examination - Vital Signs Temperature: 97.8 F Blood Pressure: 139/54 Pulse: 55 Respirations: 14 Pulse Ox (%): 97 - Physical Exam General: Alert, In no apparent distress, Cooperative Gastrointestinal: Other (soft, mild global TTP, ND, improved from prior, no peritoneal signs) - Studies Microbiology Data (last 24 hrs): 10/03/18 07:40 Catheterized Urine [place] Count - Final 10/03/18 07:40 Catheterized Urine - Final No growth. Assessment And Plan - Current Problems (Diagnosis) (1) Abdominal pain Current Visit: Yes Status: Acute Plan: UGI with SMall bowel follow through with transit time - serial exams - medical management Qualifiers: Abdominal location: unspecified location Qualified Code(s): R10.9 - Unspecified abdominal pain
--- NOTE | 2018-10-05 11:28 | RAD REPORT ---
EXAM DESCRIPTION: RAD - Upper GI W/ Sm Bowel - 10/05/2018 11:16 am CLINICAL HISTORY: Persistent abdominal pain with nausea and emesis COMPARISON: None. FINDINGS: Patient had limited mobility. Only AP projections of the esophagus could be obtained. Arti ent was on a fluoroscopic table supine in position at a 45 degrees angle for the esophagram images. Patient showed good bolus formation and good initiation of swallowing. Tertiary contractions were pre sent, mild in degree, in the lower 1/2 of the thoracic esophagus. This did not cause any abnormal del ayed transit into the stomach. No stricture, mass or other intrinsic esophageal finding. No hiatal he rnia seen. No reflux was observed during the examination. Gastric size, mucosal fold pattern, and peristalsis are normal. Duodenal bulb, pylorus and C-loop marisol w no suspicious findings. No evidence for gastro paresis. Small bowel is normal in diameter and shows a normal mucosal fold pattern. No intrinsic mass or focal small bowel abnormality. Transit time to the colon was normal at 1.5 hours. Fluoro time was 3 minutes 56 seconds. Four KUB classified advertising clerk images were obtained to incorporate the lower ch est, abdomen and pelvis. There were 27 fluoroscopic spot images obtained IMPRESSION: Esophagus imaging was somewhat limited by patient mobility. No intrinsic stricture or ma ss. Patient had mild tertiary contractions in the lower 1/2 of the esophagus. This did not delayed transi t into the stomach. No gastric abnormality. No gastroparesis or other evidence for delayed or prolonged gastric emptying. No small bowel abnormality. Transit time to the colon was 1.5 hours, normal range.
[2018-10-05] MEDS: D5 0.45 NS 1,000 ML IV SCH (14:02)
--- NOTE | 2018-10-05 16:37 | P.PN ---
Subjective Date of Service: 10/05/18 Primary Care Provider: unknown Chief Complaint: Abdominal pain nausea vomiting Subjective: Improving Physical Examination - Vital Signs Temperature: 97.8 F Blood Pressure: 139/54 Pulse: 55 Respirations: 14 Pulse Ox (%): 97 - Physical Exam General: Alert, In no apparent distress, Oriented x3, Other (anxiety) HEENT: Atraumatic Neck: Supple Respiratory: Clear to auscultation bilaterally, Normal air movement Cardiovascular: Normal pulses, Regular rate/rhythm Gastrointestinal: Normal bowel sounds, Soft and benign, Non-distended, No tenderness, No masses, No rebound, No guarding Musculoskeletal: No tenderness, No warmth Integumentary: No erythema, No warmth, No cyanosis Neurological: Normal speech, Normal strength at 5/5 x4 extr, Normal tone, Normal affect - Studies Microbiology Data (last 24 hrs): 10/03/18 07:40 Catheterized Urine [place] Count - Final 10/03/18 07:40 Catheterized Urine - Final No growth. Medications List Reviewed: Yes Assessment & Plan Discharge Plan: Home Plan to discharge in: 24 Hours Physician Review Additional Text: Impression: Abdominal pain, nausea and vomiting suspect anxiety related 13 mm calculus in the right renal pelvis with right hydronephrosis Hypertension GERD Anxiety Plan: Abdominal pain, nausea and vomiting suspect anxiety related: Patient has been evaluated extensively. This included GI and surgery evaluation. Surgery plans no intervention at this time. Spoke at length with GI. GI suspects this may be related to anxiety. Small-bowel follow-through unremarkable. Will advance diet. Will provide medication for anxiety. Recommend follow up with GI for EGD colonoscopy. Anticipate discharge tomorrow after procedure with urology. 13 mm calculus in the right renal pelvis with right hydronephrosis: Patient seen and evaluated by urology. Urology plans for ESWOL tomorrow. Likely discharge after procedure. Hypertension: Continue medication. Will monitor and adjust appropriately. GERD: Continue medication. Anxiety: Will provide medication. Time Spent Managing Pts Care (In Minutes): 55
[2018-10-05] MEDS ORDERED: MAGNESIUM CITRATE 300 ML BOT PO SCH (18:00)
--- NOTE | 2018-10-05 18:42 | PN ---
Subjective: Patient says her abdominal pain is improving. She is not really sure why. She has had General Surgery to see her. She has had small bowel follow-through series, which is normal. Her sto ne is visible by KUB, but now with a small bowel series, it may be difficult to see the stone tomorro w. We may have to put contrast into the system to see the stone, but she wishes to have the right ES WL done plus or minus stent placement. All the general information, alternatives, and risks were rev iewed. The patient wishes to proceed. Thank you very much. NATE/GUME Voice ID: [id number] Report ID: [id number]
[2018-10-05] MEDS ORDERED: MAGNESIUM CITRATE 300 ML BOT PO ONE (20:00)
[2018-10-06] MEDS: D5 0.45 NS 1,000 ML IV SCH (01:30)
[2018-10-06] MEDS: HYDRALAZINE HCL 20 MG/ML VIAL IV PRN ×2 (04:37→16:17)
[2018-10-06] MEDS: PANTOPRAZOLE 40MG TABLET PO SCH (05:28)
[2018-10-06 05:50] LABS: Absolute Lymphocytes (CBC) 1.6 K/uL (0.7-4.9); Basophils % 0.9 % (0-1.3); Hematocrit 34.1 % (36.0-45.0); Lymphocytes % 29.6 % (15.3-44.8)
[2018-10-06 06:06] LABS: Albumin 2.3 g/dL (3.4-5.0); Bilirubin Total 0.2 mg/dL (0.2-1.0); Magnesium 2.9 mg/dL (1.8-2.4); Potassium 4.2 mmol/L (3.5-5.1); Protein, Total 5.7 g/dL (6.4-8.2)
[2018-10-06] MEDS: INSULIN -REGULAR HUMAN 50 UNIT/0.5 ML ML SQ SCH ×4 (07:30→19:47)
[2018-10-06] MEDS: METOPROLOL TAR 50 MG TAB PO SCH ×2 (08:18→19:46)
[2018-10-06] MEDS: LOSARTAN POTASSIUM 50 MG TABLET PO SCH (08:18)
[2018-10-06] MEDS: GABAPENTIN 100 MG CAP PO SCH ×2 (09:00→19:46)
--- NOTE | 2018-10-06 09:38 | RAD REPORT ---
EXAM DESCRIPTION: RAD - Abdomen 1 View (KUB) - 10/06/2018 9:20 am CLINICAL HISTORY: check for stone Pain COMPARISON: Abdomen 1 View (KUB) dated 10/03/2018; Abdomen 1 View (KUB) dated 10/03/2018; Upper GI W/ Sm Bowel dated 10/05/2018 FINDINGS: There is quite a bit of contrast retained in the colon from recent barium study which limi ts the quality of study. No stone in the tract can be confirmed with certainty. No bowel obstructi on evident. Cholecystectomy clips.
[2018-10-06] MEDS ORDERED: FLEET ENEMA ADULT PR ONE (11:54)
[2018-10-06] MEDS ORDERED: NA CHLORIDE 0.9% 1,000 ML ONE (12:50)
[2018-10-06] MEDS ORDERED: PROPOFOL 200 MG/20 ML VIAL IV ONE (13:12)
[2018-10-06] MEDS ORDERED: GENTAMICIN 100 MG/100 ML BAG 100 ML IV ONE (13:13)
[2018-10-06] MEDS ORDERED: FENTANYL CITR 100 MCG/2 ML ONE (13:13)
[2018-10-06] MEDS ORDERED: LIDOCAINE 2% MPF 5 ML VIAL ONE (13:13)
[2018-10-06] MEDS ORDERED: MIDAZOLAM HCL 2 MG/2 ML INJ ONE (13:13)
[2018-10-06] MEDS ORDERED: EPHEDRINE SULF 50 MG/ML VIAL ONE (13:48)
[2018-10-06] MEDS ORDERED: KETOROLAC 30 MG/ML INJ ONE (14:17)
--- NOTE | 2018-10-06 16:43 | P.PN ---
Subjective Date of Service: 10/06/18 Primary Care Provider: unknown Chief Complaint: Abdominal pain nausea vomiting Subjective: Improving, Doing well Physical Examination - Vital Signs Temperature: 97.2 F Blood Pressure: 179/73 Pulse: 62 Respirations: 16 Pulse Ox (%): 93 - Physical Exam General: Alert, In no apparent distress, Oriented x3, Cooperative HEENT: Atraumatic Neck: Supple Respiratory: Clear to auscultation bilaterally, Normal air movement Cardiovascular: Normal pulses, Regular rate/rhythm Gastrointestinal: Normal bowel sounds, Soft and benign, Non-distended, Tenderness (Of significant pain noted) Neurological: Abnormal affect (Anxiety noted) - Studies Medications List Reviewed: Yes Assessment & Plan Discharge Plan: Home Plan to discharge in: 24 Hours Physician Review Additional Text: Impression: Abdominal pain, nausea and vomiting suspect anxiety related 13 mm calculus in the right renal pelvis with right hydronephrosis Hypertension GERD Anxiety Plan: Abdominal pain, nausea and vomiting suspect anxiety related: Patient has improved. Spoke with GI and surgery. Workup unremarkable at this time. Will advance diet. GI recommends EGD/colonoscopy as an outpatient. Will provide medication for anxiety. Anticipate discharge in the next 24 hr after clinical improvement. Patient to have urological procedure today. 13 mm calculus in the right renal pelvis with right hydronephrosis: Patient to have lithotripsy-ESWOL today. Will discuss with urology. Likely discharge tomorrow after diet is advanced. Will need to make sure patient without significant abdominal pain. Hypertension: Continue medication. Will monitor and adjust appropriately. GERD: Continue medication. Anxiety: Will provide medication. Time Spent Managing Pts Care (In Minutes): 55
[2018-10-06] MEDS ORDERED: MELATONIN 5 MG TABLET PO ONE (19:54)
[2018-10-07] MEDS: D5 0.45 NS 1,000 ML IV SCH ×2 (03:20→05:18)
[2018-10-07 04:40] LABS: Absolute Lymphocytes (CBC) 1.9 K/uL (0.7-4.9); Basophils % 0.8 % (0-1.3); Hematocrit 32.9 % (36.0-45.0); Lymphocytes % 29.8 % (15.3-44.8); MPV 8.3 fL (7.6-11.3); RBC Red Blood Cell Count 3.47 M/uL (3.86-4.86)
[2018-10-07 05:06] LABS: Albumin 2.1 g/dL (3.4-5.0); Bilirubin Total 0.2 mg/dL (0.2-1.0); Magnesium 2.3 mg/dL (1.8-2.4); Potassium 3.6 mmol/L (3.5-5.1); Protein, Total 5.1 g/dL (6.4-8.2)
[2018-10-07] MEDS: PANTOPRAZOLE 40MG TABLET PO SCH (05:18)
[2018-10-07] MEDS: GABAPENTIN 100 MG CAP PO SCH (07:14)
[2018-10-07] MEDS: LOSARTAN POTASSIUM 50 MG TABLET PO SCH (07:15)
[2018-10-07] MEDS: METOPROLOL TAR 50 MG TAB PO SCH (07:15)
[2018-10-07] MEDS: INSULIN -REGULAR HUMAN 50 UNIT/0.5 ML ML SQ SCH (07:18)
[2018-10-07 08:06] VITALS: BP 187/74; TEMP 97.5
[2018-10-07 09:33] VITALS: O2SAT 93
--- NOTE | 2018-10-07 16:35 | P.DS ---
Admission Date: 10/03/18 Discharge Date: 10/07/18 Primary Care Provider: unknown Disposition: ROUTINE DISCHARGE Discharge Condition: FAIR Reason for Admission: Abdominal pain nausea vomiting Consultations: Surgery-Dr. Cardoso Urology-Dr. Ortiz GI-Dr. Cuenca Procedures: CT Ab/Pelvis: FINDINGS: The lung bases are clear.Moderate pneumobilia is again seen. Cholecystectomy. The liver demonstrates no focal mass. The spleen, pancreas, adrenal glands are normal. The left kidney contains a 9 mm cyst. The right kidney contains a 13 mm oblong stone in the right renal pelvis with mild right hydronephrosis. No bowel obstruction, free air, free fluid or abscess. Moderate fecal retention in the colon. Anterior calcified hernia mesh again seen, chronic No evidence of significant lymphadenopathy. Moderate lumbar degenerative changes. IMPRESSION: 13 mm calculus in the right renal pelvis with mild right hydronephrosis. Moderate fecal retention in the colon. CXR: FINDINGS: The lungs appear clear of acute infiltrate. The heart is moderately enlarged IMPRESSION: No acute abnormalities displayed Upper GI and Small Bowel Series: FINDINGS: Patient had limited mobility. Only AP projections of the esophagus could be obtained. Patient was on a fluoroscopic table supine in position at a 45 degrees angle for the esophagram images. Patient showed good bolus formation and good initiation of swallowing. Tertiary contractions were present, mild in degree, in the lower 1/2 of the thoracic esophagus. This did not cause any abnormal delayed transit into the stomach. No stricture, mass or other intrinsic esophageal finding. No hiatal hernia seen. No reflux was observed during the examination. Gastric size, mucosal fold pattern, and peristalsis are normal. Duodenal bulb, pylorus and C-loop show no suspicious findings. No evidence for gastro paresis. Small bowel is normal in diameter and shows a normal mucosal fold pattern. No intrinsic mass or focal small bowel abnormality. Transit time to the colon was normal at 1.5 hours. Fluoro time was 3 minutes 56 seconds. Four KUB security shift manager images were obtained to incorporate the lower chest, abdomen and pelvis. There were 27 fluoroscopic spot images obtained IMPRESSION: Esophagus imaging was somewhat limited by patient mobility. No intrinsic stricture or mass. Patient had mild tertiary contractions in the lower 1/2 of the esophagus. This did not delayed transit into the stomach. No gastric abnormality. No gastroparesis or other evidence for delayed or prolonged gastric emptying. No small bowel abnormality. Transit time to the colon was 1.5 hours, normal range. Urology intervention: Lithotripsy Medical Problem List: Abdominal pain, nausea and vomiting suspect anxiety related 13 mm calculus in the right renal pelvis with right hydronephrosis status post lithotripsy Hypertension Diabetes mellitus type 2 [id number] Chronic pain with diabetic neuropathy GERD Anxiety Hyperlipidemia Suspect obstructive sleep apnea Brief History of Present Illness: 78-year-old female presented to the emergency room with abdominal pain , nausea and vomiting. Patient was admitted for further evaluation. Hospital Course: Patient presented with Abdominal pain, nausea and vomiting. Patient seen and evaluated by surgery, GI and Urology. No surgical intervention was required by surgery. No GI intervention was recommended at this time. CT scan did reveal 13 mm calculus in the right renal pelvis with mild right hydronephrosis. Urology performed lithotripsy. This was successful. At discharge patient will follow up with urology in 1 week to follow up this hospitalization. Patient will need to strain and collect her urine. Patient may continue with her pain medication at this time. GI and surgery felt abdominal pain may be related to anxiety. Patient will be given Xanax 0.25 mg 1 pill twice daily as needed. Recommend follow up with GI as an outpatient for EGD/colonoscopy evaluation. Patient with hypertension. This has remained stable. At discharge she will continue with her medication losartan 100 mg 1 pill daily, metoprolol 50 mg 1 pill twice daily and aspirin 81 mg daily. Patient also takes Lasix 20 mg daily as needed for edema. Recommend to maintain blood pressures less 150/80. Further adjustment can be done by her PCP. Patient with underlying GERD. Patient may continue with Prilosec 40 mg daily. As recommended above, patient to follow up with GI for EGD/colonoscopy. Patient may continue with Pro biotic daily. Patient with hyperlipidemia. At discharge she will continue with her medication -Lipitor 40 mg daily and fish oral once daily. Patient with underlying diabetes mellitus type 2 hip-sngpkvz-avzulfrzp. This has remained stable. At discharge she will continue with glipizide 5 mg 1 pill twice daily. Recommend to maintain blood sugars less 140 fasting and less than 200 after meals. Further adjustment can be done by her PCP. Patient with chronic pain with diabetic neuropathy. At discharge she will continue with gabapentin 100 mg 1 pill twice daily. Patient likely with underlying obstructive sleep apnea. Recommendation is for the patient to have a sleep study to be done as an outpatient to further evaluate. This can be done with the help of her PCP or establish care with pulmonology to address. Vital Signs/Physical Exam: Temp Pulse Resp BP Pulse Ox 97.5 F 63 16 187/74 H 96 10/07/18 08:00 10/07/18 08:00 10/07/18 08:00 10/07/18 08:00 10/07/18 08:00 General: Alert, In no apparent distress, Oriented x3, Cooperative HEENT: Atraumatic Neck: Supple Respiratory: Clear to auscultation bilaterally, Normal air movement Cardiovascular: Normal pulses, Regular rate/rhythm Gastrointestinal: Normal bowel sounds, Soft and benign, Non-distended, No tenderness, No masses, No rebound, No guarding Musculoskeletal: No erythema, No tenderness, No warmth Integumentary: No tenderness/swelling, No erythema, No warmth, No cyanosis Neurological: Normal speech, Normal strength at 5/5 x4 extr, Normal tone, Abnormal affect (Increase anxiety) Laboratory Data at Discharge: WBC 6.4 K/uL (4.3-10.9) D 10/07/18 04:23 Hgb 11.0 g/dL (12.0-15.0) L 10/07/18 04:23 Hct 32.9 % (36.0-45.0) L 10/07/18 04:23 Plt Count 159 K/uL (152-406) 10/07/18 04:23 PT 14.1 SECONDS (9.5-12.5) H 10/03/18 06:58 INR 1.20 10/03/18 06:58 Sodium 143 mmol/L (136-145) 10/07/18 04:23 Potassium 3.6 mmol/L (3.5-5.1) 10/07/18 04:23 BUN 8 mg/dL (7-18) 10/07/18 04:23 Creatinine 0.97 mg/dL (0.55-1.3) 10/07/18 04:23 Glucose 111 mg/dL (74-106) H 10/07/18 04:23 Uric Acid 7.0 mg/dL (2.6-6.0) H 10/03/18 17:15 Magnesium 2.3 mg/dL (1.8-2.4) D 10/07/18 04:23 Total Bilirubin 0.2 mg/dL (0.2-1.0) 10/07/18 04:23 AST 15 U/L (15-37) 10/07/18 04:23 ALT 11 U/L (12-78) L 10/07/18 04:23 Alkaline Phosphatase 74 U/L (45-117) 10/07/18 04:23 Amylase 19 U/L (25-115) L 10/04/18 09:55 Lipase 182 U/L (73-393) 10/07/18 04:23 Home Medications: Aspirin 1 tab PO DAILY 10/03/18 Atorvastatin Calcium 1 tab PO DAILY 10/03/18 Cetirizine HCl [Zyrtec] 10 mg PO DAILY 10/03/18 Furosemide 20 mg PO DAILY 10/03/18 Gabapentin 1 tab PO BID 10/03/18 Hydrocodone 5/APAP 325 [[place] 5/325*] 1 tab PO Q6H PRN 10/03/18 Krill/[place]-3/Dha/Epa/Lipids [Krill Oil 350 mg Softgel] 1 cap PO DAILY 10/03/18 L.acidoph,Paracasei, B.lactis [Probiotic] 1 cap PO DAILY 10/03/18 Losartan Potassium 100 mg PO DAILY 10/03/18 Metoprolol Tartrate 1 tab PO BID 10/03/18 Mv-Mn/Folic Acid/Vit [id number] [Alive Once Daily Women 50 Plus] 1 tab PO DAILY 10/03/18 Omeprazole [Prilosec] 40 mg PO DAILY 10/03/18 Sennosides/Docusate Sodium [Senna Laxative Tablet] 2 tab PO BID 10/03/18 glipiZIDE [Glipizide] 1 tab PO BID 10/03/18 ALPRAZolam [Xanax] 0.25 mg PO BID PRN #15 tab 10/07/18 New Medications: ALPRAZolam [Xanax] 0.25 mg PO BID PRN #15 tab PRN Reason: Anxiety Patient Discharge Instructions: 1. Recommend follow up with PCP in 1 week to follow up this hospitalization. 2. Patient presented with Abdominal pain, nausea and vomiting. Patient seen and evaluated by surgery, GI and Urology. No surgical intervention was required by surgery. No GI intervention was recommended at this time. CT scan did reveal 13 mm calculus in the right renal pelvis with mild right hydronephrosis. Urology performed lithotripsy. This was successful. At discharge patient will follow up with urology in 1 week to follow up this hospitalization. Patient will need to strain and collect her urine. Patient may continue with her pain medication at this time. GI and surgery felt abdominal pain may be related to anxiety. Patient will be given Xanax 0.25 mg 1 pill twice daily as needed. Recommend follow up with GI as an outpatient for EGD/colonoscopy evaluation. 3. Patient with hypertension. This has remained stable. At discharge she will continue with her medication losartan 100 mg 1 pill daily, metoprolol 50 mg 1 pill twice daily and aspirin 81 mg daily. Patient also takes Lasix 20 mg daily as needed for edema. Recommend to maintain blood pressures less 150/80. Further adjustment can be done by her PCP. 4. Patient with underlying GERD. Patient may continue with Prilosec 40 mg daily. As recommended above, patient to follow up with GI for EGD/colonoscopy. Patient may continue with Pro biotic daily. 5. Patient with hyperlipidemia. At discharge she will continue with her medication-Lipitor 40 mg daily and fish oral once daily. 6. Patient with underlying diabetes mellitus type 2 [id number]-cgenvxxek. This has remained stable. At discharge she will continue with glipizide 5 mg 1 pill twice daily. Recommend to maintain blood sugars less 140 fasting and less than 200 after meals. Further adjustment can be done by her PCP. 7. Patient with chronic pain with diabetic neuropathy. At discharge she will continue with gabapentin 100 mg 1 pill twice daily. 8. Patient likely with underlying obstructive sleep apnea. Recommendation is for the patient to have a sleep study to be done as an outpatient to further evaluate. This can be done with the help of her PCP or establish care with pulmonology to address. Diet: AHA Activity: Fall precautions Followup: Lamonte Abreu MD [Primary Care Provider] - 1 Week (call to schedule an appointment ) Cherie Ortiz MD [ACTIVE - CAN ADMIT] - 1 Week (call to schedule an appointment ) Time spent managing pt's care (in minutes): 55
== END 2018-10-07 10:51 | disposition home health service (06) | DRG 692 ==
LOC: ER 05:38 → SUPCPDRO 05:38 → ERHOLD 10:01 → 4TH 10:59
PROVIDERS: ADMIT Internal Medicine Sleep Medicine; ATTEND Internal Medicine Sleep Medicine
PROC: 0TF3XZZ Fragmentation in Right Kidney Pelvis, External Approach (ICD-10-PCS; principal; 2018-10-06 13:00)
DX: N13.2 Hydronephrosis with renal and ureteral calculous obstruction (principal); I10 Essential (primary) hypertension; E11.40 Type 2 diabetes mellitus with diabetic neuropathy, unspecified; K21.9 Gastro-esophageal reflux disease without esophagitis; F41.9 Anxiety disorder, unspecified; E78.5 Hyperlipidemia, unspecified; G47.33 Obstructive sleep apnea (adult) (pediatric); R10.9 Unspecified abdominal pain; R11.2 Nausea with vomiting, unspecified
CPT/HCPCS: 36415; 50590; 51702; 71045; 71046; 74018; 74177; 74245; 80048; 80053; 80076; 81003; 81015; 82150; 82962; 83605; 83615; 83690; 83735; 83880; 84145; 84484; 84550; 85025; 85610; 87040; 87086; 87088; 93005; 94760; 96361; 96374; 99285; J0360; J1170; J1580; J1650; J2250; J2270; J2405; J2550; J2704; J3010; J3475; J7030; Q9967

== ENCOUNTER 2018-10-12 14:33 | Observation (INO) | payer OTHER ==
--- OUTSIDE RECORDS SUMMARY | 2018-10-12 15:04 | XMS REPORT | Clinical Summary ---
:1940 [facility] Organization [facility] Address [address] [place] [address] Care Team Providers Name Role Phone Roscoe [...] Anesthesia Event Gastroenterology Chance Duque MD 08/10/2018 [facility] Internal [facility], [facility] Acute encephalopathy; - Encounter Medicine MD [...] Idris Joseph Abdominal Pain MD Opal after 10/11/2017 Immunizations Name Dates Previously Given Next Due [...] Not on file Implants Implanted Type Area Cooker Helper Device Shelf Model / Identifier Expiration Serial / Date Lot Device Clsr Angio-Seal Vip 6fr [id number] - [id number] Cardiovascular N/A: Groin ST QUANG 11/16/2016 [id number] / Implanted: Qty: 1 on 03/21/2016 by Miguel Ángel Chaudhry MD MED: CARDIAC / SURG [id number] Synergy Stents-Coronary N/A: [place] 01/15/2017 [id number] / Implanted: Qty: 1 on 03/21/2016 by Miguel Ángel Chaudhry MD Coronary SCIENTIFIC / [id number] Procedures Procedure Name Priority Date/Time Associated Comments [...] procedure are in the results section. after 10/11/2017 Results RHYTHM STRIP - SCAN (08/19/2018 11:40 AM CDT)Only the most recent of2 resultswithin the time period is included. Narrative Performed At EKG-SCANNED (08/19/2018 11:40 AM CDT) Narrative Performed At US Renal with Doppler (08/18/2018 4:03 PM CDT) Specimen Narrative Performed At FINAL REPORT [place] Renal ultrasound and Duplex Doppler ultrasound of [...] MD Report Verified Date/Time:08/18/2018 16:58:13 Reading Location: [address] Radiology Reading Room Procedure Note Interface, [...] Report Verified Date/Time: 08/18/2018 16:58:13 Reading Location: [address] Radiology Reading Room Performing Organization Address City/State/Zipcode Phone Number [place] POC-Glucose meter (08/18/2018 7:41 AM CDT)Only the most recent of29 resultswithin the time period is included. POC-Glucose Meter 141 (H)Comment: TESTED AT 70 - 110 mg/dL [facility] [address] [facility] [place] [address] Specimen Blood Performing Organization Address City/[facility]/Zipcode Phone Number [address] [address] [place] CBC (Hemogram only) (08/18/2018 5:01 AM CDT)Only the most recent of7 resultswithin the time period is included. WBC 11.7 (H) 3.5 - 10.5 K/L [facility] RBC 3.29 (L) 3.93 - 5.22 M/L [facility] Hemoglobin 10.4 (L) 11.2 - 15.7 GM/DL [facility] Hematocrit 31.8 (L) 34.1 - 44.9 % [facility] MCV 96.7 (H) 79.4 - 94.8 fL [facility] MCH 31.6 25.6 - 32.2 pg [facility] MCHC 32.7 32.2 - 35.5 GM/DL [facility] RDW 16.6 (H) 11.7 - 14.4 % [facility] Platelets 175 150 - 450 K/CU MM [facility] MPV 11.4 9.4 - 12.3 fL [facility] nRBC 0 0 - 0 /100 WBC [facility] Specimen Blood Performing Organization Address City/[facility]/Zipcode Phone Number [address] [address] CENTER Magnesium (08/18/2018 5:01 AM CDT)Only the most recent of8 resultswithin the time period is included. Magnesium 1.9 1.6 - 2.6 mg/dL [facility] Specimen Blood Performing Organization Address City/[facility]/Zipcode Phone Number [facility] [address] [address] [place] Hepatic function panel (08/18/2018 5:01 AM CDT)Only the most recent of8 resultswithin the time period is included. Protein, Total 5.4 (L) 6.0 - 8.3 gm/dL [facility] Albumin 2.9 (L) 3.5 - 5.0 g/dL [facility] Total Bilirubin 0.4 0.2 - 1.2 mg/dL [facility] Bilirubin, Direct 0.2 0.1 - 0.5 mg/dL [facility] Alkaline Phosphatase 73 40 - 150 U/L [facility] AST 20 5 - 34 U/L [facility] ALT 17 6 - 55 U/L [facility] Specimen Blood Performing Organization Address City/State/[place] Phone Number [address] [address] [place] Basic Metabolic Panel (08/18/2018 5:01 AM CDT)Only the most recent of8 resultswithin the time period is included. Sodium 134 (L) 136 - 145 meq/L [facility] Potassium 4.2 3.5 - 5.1 meq/L [facility] Chloride 103 98 - 107 meq/L [facility] CO2 28 22 - 29 meq/L [facility] BUN 12 7 - 21 mg/dL [facility] Creatinine 0.74 0.57 - 1.25 mg/dL [facility] Glucose 124 (H) 70 - 105 mg/dL [facility] Calcium 9.9 8.4 - 10.2 mg/dL [facility] EGFR 76Comment: ESTIMATED GFR IS mL/min/1.73 sq m [facility] NOT ACCURATE [facility] CLEARANCE IN PREDICTING GLOMERULAR FILTRATION RATE. ESTIMATED GFR IS NOT APPLICABLE FOR DIALYSIS PATIENTS. Specimen Blood Performing Organization Address City/State/Zipcode Phone Number [facility] [address] [place] [address] CENTER NM myocardial perfusion PET (rest and stress) (08/17/2018 2:17 PM CDT) Specimen Narrative Performed At FINAL REPORT [place] PROCEDURE: MYOCARDIAL PERFUSION PET IMAGING (Rest/Stress) CPT CODE: 61147 INDICATION: Define extent of known CAD, chest [...] MD Report Verified Date/Time:08/17/2018 15:22:38 Reading Location: [address] Reading Room Procedure Note Interface, External Ris In - 08/17/2018 3:24 PM CDT FINAL REPORT PROCEDURE: MYOCARDIAL PERFUSION PET IMAGING (Rest/Stress) CPT CODE: 24039 INDICATION: Define extent of known CAD, chest [...] Report Verified Date/Time: 08/17/2018 15:22:38 Reading Location: [address] Reading Room Performing Organization Address City/State/Zipcode [...] 2:32:36 PM Confirmed by MD TEE JORGE ([id number]) on 09/24/2018 2:05:23 PM Procedure Note Interface, [...] 2:32:36 PM Confirmed by MD TEE JORGE ([id number]) on 09/24/2018 2:05:23 PM Performing Organization Address City/State/Zipcode Phone Number [facility] CBC with platelet count + automated diff (08/16/2018 12:56 PM CDT)Only the most recent of2 resultswithin the time period is included. WBC 12.9 (H) 3.5 - 10.5 K/L [facility] RBC 3.74 (L) 3.93 - 5.22 M/L [facility] Hemoglobin 11.6 11.2 - 15.7 GM/DL [facility] Hematocrit 35.0 34.1 - 44.9 % [facility] MCV 93.6 79.4 - 94.8 fL [facility] MCH 31.0 25.6 - 32.2 pg [facility] MCHC 33.1 32.2 - 35.5 GM/DL [facility] RDW 16.0 (H) 11.7 - 14.4 % [facility] Platelets 165 150 - 450 K/CU MM [facility] MPV 10.1 9.4 - 12.3 fL [facility] nRBC 0 0 - 0 /100 WBC [facility] % Neutros 84 % [facility] % Lymphs 7 % [facility] % Monos 7 % [facility] % Eos 2 % [facility] % Baso 0 % [facility] # Neutros 10.89 (H) 1.56 - 6.13 K/L [facility] # Lymphs 0.90 (L) 1.18 - 3.74 K/L [facility] # Monos 0.84 (H) 0.24 - 0.36 K/L [facility] # Eos 0.20 0.04 - 0.36 K/L [facility] # Baso 0.05 0.01 - 0.08 K/L [facility] Immature 1 0 - 1 % [facility] Granulocytes-[facility] CENTER Specimen Blood Performing Organization Address City/State/Zipcode Phone Number [facility] [address] [place] [address] CENTER Comprehensive metabolic panel (08/16/2018 12:56 PM CDT) Protein, Total 5.4 (L) 6.0 - 8.3 gm/dL [facility] Albumin 2.9 (L) 3.5 - 5.0 g/dL [facility] Alkaline Phosphatase 86 40 - 150 U/L [facility] Total Bilirubin 0.4 0.2 - 1.2 mg/dL [facility] Sodium 135 (L) 136 - 145 meq/L [facility] Potassium 3.7 3.5 - 5.1 meq/L [facility] Chloride 102 98 - 107 meq/L [facility] CO2 28 22 - 29 meq/L [facility] BUN 10 7 - 21 mg/dL [facility] Creatinine 0.83 0.57 - 1.25 mg/dL [facility] Glucose 150 (H) 70 - 105 mg/dL [facility] Calcium 10.0 8.4 - 10.2 mg/dL [facility] AST 25 5 - 34 U/L [facility] ALT 23 6 - 55 U/L [facility] EGFR 66Comment: ESTIMATED GFR mL/min/1.[address] [facility] IS NOT ACCURATE [facility] CREATININE CLEARANCE IN PREDICTING GLOMERULAR FILTRATION RATE. ESTIMATED GFR IS NOT APPLICABLE FOR DIALYSIS PATIENTS. Specimen Blood Performing Organization Address City/State/Zipcode Phone Number [facility] [address] [place] [address] [phone] CENTER REPORT OF PROCEDURE - ENDOSCOPY URL (08/15/2018 5:30 PM CDT) Narrative Performed At [place] ERCP (08/15/2018 4:55 PM CDT) Specimen Narrative Performed At FINAL REPORT [facility] Fluoroscopy, less than 1 hour History:ERCP Comparison: none Findings: Fluoroscopic assistance was provided during ERCP.Fluoroscopic images taken were interpreted by the referring clinician.Please see separate procedure note for full details. Total Fluoroscopy time: 79.2 seconds Number of fluoroscopic images obtained: Four Impression: Fluoroscopy assistance as described above. Signed: Enio Ley MD Report Verified Date/Time:08/15/2018 17:37:26 Reading Location: [facility] C0X Ortho Consult Reading Room Procedure [...] Report Verified Date/Time: 08/15/2018 17:37:26 Reading Location: [facility] C013X Ortho Consult Reading Room Performing Organization Address City/State/Zipcode Phone Number [facility] Tissue Exam (08/15/2018 4:52 PM CDT) Case Report Surgical Pathology Report Case: [id number] [facility] Authorizing Provider:Roddy Bernardected: 08/15/[address] [place] [address] Ordering Location: [address] Received: 08/17/2018 0800 Service Pathologist: Joanne Gu MD Specimens: A) - Duodenal, ULCERS BX B) - Biopsy, Gastric, BX DIAGNOSIS This final report is issued to give the result of immunohistochemical study for Helicobacter pylori on specimen B: [facility] A. DUODENUM, ULCERS, ENDOSCOPIC BIOPSY: - SEVERE [...] MALIGNANCY NOTED Signing Pathologist Direct Phone Line: [phone] CPT Code(s) 71259 X 2; 68478; 80637 [facility] CLINICAL HISTORY Common bile duct stones [facility] SPECIMEN SOURCE A. Duodenal ulcers biopsy; B. [facility] Biopsy, gastric biopsy [facility] GROSS DESCRIPTION The case is received in two parts both labeled with the patient's name, Judy Calhoun, date of 1940 and accession number [id number] which corresponds to accompanying requisition page labeled with the same name and accession number. [facility] Part A is received in formalin labeled [...] MICROSCOPIC DESCRIPTION PERFORMED [facility] SPECIAL STUDIES The interpretation of this case included the use of immunohistochemistry or special stains. [facility] WARTHIN-STARRY; HELICOBACTER PYLORI [facility] Control Slides Examined: In-house known positive controls were evaluated along with the test tissue. These control slides run alongside of the patients sample show appropriate staining. Internal posit emily and negative controls when available are evaluated Immunohistochemistry technical testing was performed at [facility] Pathology Laboratory where it was developed [...] (specimen) Performing Organization Address City/State/Zipcode Phone Number [place] [phone] [place] [address] brain without IV contrast (08/12/2018 11:55 AM CDT) Specimen Narrative Performed At FINAL REPORT [place] CT, BRAIN, WITHOUT CONTRAST CLINICAL INDICATION:Confusion/delirium, altered [...] MD Report Verified Date/Time:08/12/2018 12:57:37 Reading Location: [facility] Reading Room Procedure Note Interface, [...] Report Verified Date/Time: 08/12/2018 12:57:37 Reading Location: [facility] Radiology Reading Room Performing Organization Address City/State/Zipcode Phone Number [facility] CT abdomen/pelvis without & with IV contrast (08/12/2018 11:55 AM CDT) Specimen Narrative Performed At FINAL REPORT [facility] CT abdomen and pelvis without and [...] MD Report Verified Date/Time:08/12/2018 13:32:12 Reading Location: [facility] Diagnostic Imaging Reading Room - [place] [address] Procedure Note Interface, External Ris In - [...] Report Verified Date/Time: 08/12/2018 13:32:12 Reading Location: [facility] Diagnostic Imaging Reading Room - [place] [address] Performing Organization Address City/State/Zipcode Phone Number RIS Lactic acid, venous (08/12/2018 4:36 AM CDT)Only the most recent of2 resultswithin the time period is included. Lactate, Venous 0.9Comment: Specimen 0.5 - 2.2 mmol/L [facility] slightly hemolyzed [facility] CENTER Specimen Blood Performing Organization Address City/[facility]/Zipcode Phone Number [address] [address] CENTER Folate, RBC (08/12/2018 4:36 AM CDT) Folate, Rbc >1000 >280 ng/mL RBC [facility] Specimen Blood Narrative Performed At Performing Lab [facility] EZ [facility] [address] [place] [address] Jerica Cooney MD, PhD, JACKIE Performing Organization Address City/[facility] Phone Number [facility], [place] [address] [facility]ORPOR[facility] [address] [facility] Vitamin B12 (08/12/2018 4:35 AM CDT) Vitamin B12 1,063 (H) 213 - 816 pg/mL [facility] Specimen Blood Performing Organization Address [facility] Phone Number [address] [address] [phone] CENTER Troponin I (08/12/2018 12:51 AM CDT)Only the most recent of3 resultswithin the time period is included. Troponin I 0.02 0.00 - 0.03 ng/mL [facility] Specimen Blood Narrative Performed At Troponin I (TnI) levels must be interpreted [facility] in the context of the presenting symptoms [...] disease, and persistent tachyarrhythmia. Performing Organization Address [facility] Phone Number [address] [address] [phone] [place] ECHOCARDIOGRAM REPORT - SCAN (08/11/2018 9:11 PM CDT) Narrative Performed At Procalcitonin (08/11/2018 8:46 PM CDT) Procalcitonin <0.05 <0.05 ng/mL [facility] Specimen Blood Narrative Performed At SEPSIS RISK (ng/mL) [facility] Low:0.05-0.50 Intermediate: 0.51-2.00 High: >=2.01 Performing Organization Address [facility] Phone Number [place] [id number] [place] [address] [phone] CENTER ECG 12 lead (08/11/2018 3:42 PM CDT)Only the most recent of2 resultswithin the time period is included. Specimen Narrative Performed At Ventricular Rate 71 BPM [facility] Atrial Rate 71 BPM P-R Interval 140 ms QRS Duration 78 ms Q-T Interval 326 ms QTC Calculation(Bazett) 354 ms P Jenner 1 degrees R Jenner 31 degrees T Jenner 124 degrees Normal sinus rhythm Nonspecific ST [...] 326 ms QTC Calculation(Bazett) 354 ms P Jenner 1 degrees R Jenner 31 degrees T Jenner 124 degrees Normal sinus rhythm Nonspecific ST and T wave abnormality Abnormal ECG When compared with ECG of 10-AUG-2018 16:46, No significant change was found Confirmed by Nicole OROZCO MICHAEL ([id number]) on 08/12/2018 8:00:23 AM Performing Organization Address [facility] Phone Number [facility] XR abdomen / KUB 1 view (08/11/2018 10:50 AM CDT) Specimen Narrative Performed At FINAL REPORT [place] CLINICAL HISTORY: abdominal pain TECHNIQUE: Supine abdomen COMPARISON: CT 03/21/2016 IMPRESSION: The bowel gas pattern is nonspecific. Free air and air-fluid levels are not seen but cannot be definitively excluded on the supine view. Right upper quadrant surgical clips are again seen. Right lower abdominal hernia repair mesh is again seen. Signed: Ken Bunn MD Report Verified Date/Time:08/11/2018 11:42:12 Reading Location: [facility] Radiology Reading Room Procedure Note Interface, [...] Report Verified Date/Time: 08/11/2018 11:42:12 Reading Location: [facility] Radiology Reading Room Performing Organization Address City/[facility] Phone Number [facility] POCT-HEMATOCRIT (08/11/2018 9:36 AM CDT) POC-Hematocrit 34 (L)Comment: TESTED AT 36 - 45 % [address] [address] Specimen Blood Performing Organization Address [facility] Phone Number [address] [phone] [place] POCT-HEMOGLOBIN (08/11/2018 9:36 AM CDT) POC-Hemoglobin 11.6 (L)Comment: TESTED AT 12.0 - 15.0 g/dL [address] [address]IDNQRH AT [address] [address] Specimen Blood Performing Organization Address [facility] Phone Number [address] [phone] [place] POCT-GLUCOSE (08/11/2018 9:36 AM CDT) POC-Glucose 165 (H)Comment: TESTED AT 70 - 110 mg/dL [address] [address] Specimen Blood Performing Organization Address [facility] Phone Number [address] [phone] CENTER POC-Sodium (08/11/2018 9:36 AM CDT) POC-Sodium 142Comment: TESTED AT [facility] 135 - 148 meq/L [address] [address] Specimen Blood Performing Organization Address City/[facility]/Zipcode Phone Number [address] [address] [place] POC-Potassium (08/11/2018 9:36 AM CDT) POC-Potassium 3.6Comment: TESTED AT [facility] 3.6 - 5.5 meq/L [address] [address] Specimen Blood Performing Organization Address City/[facility]/Zipcode Phone Number [address] [address] [phone] [place] POC-Calcium ionized (08/11/2018 9:36 AM CDT) POC-Calcium Ionized 1.50 (H)Comment: 1.12 - 1.27 mmol/L [facility] TESTED AT [address] [address] Specimen Blood Performing Organization Address City/[facility] Phone Number [address] [address] [place] POC-Blood gases, venous (08/11/2018 9:36 AM CDT) Temp. Celsius-POC 36.9 [facility] FIO2-POC 28Comment: TESTED AT [address] [address] pH, Venous-POC 7.344 7.320 - 7.420 [facility] PCO2, Venous-POC 48.8 41.0 - 51.0 mm Hg [facility] PO2, Venous-POC 36.0 25.0 - 40.0 mm Hg [facility] SO2, Venous-POC 66.0 40.0 - 70.0 % [facility] HCO3, Venous-POC 26.6 21.0 - 29.0 meq/L [facility] BE, Venous-POC 1.0 -2.0 - 3.0 meq/L [facility] Specimen Blood Performing Organization Address City/[facility]/Zipcode Phone Number [address] [phone] [place] POC-Lactic Acid, Venous (08/11/2018 9:32 AM CDT) POC-Lactic Acid, Venous 0.9Comment: TESTED AT 0.9 - 1.7 mmol/L [address] [address] Specimen Blood Performing Organization Address [facility] Phone Number [address] [address] [place] Urinalysis w/Microscopic + Reflex to Culture (08/11/2018 7:48 AM CDT) Color, UA Yellow [facility] Clarity, UA Clear [facility] Specific Sharon, UA 1.012 1.001 - 1.035 [facility] pH, UA 6.0 5.0 - 8.0 [facility] Protein, UA 10 mg/dL (A) Negative [facility] Glucose, UA 50 mg/dL (A) Negative [facility] Ketones, UA 20 mg/dL (A) Negative [facility] Bilirubin, UA Negative Negative [facility] Blood, UA Moderate (A) Negative [facility] Nitrite, UA Negative Negative [facility] Leukocytes, UA Negative Negative [facility] Urobilinogen, UA 0.2 0.2 - 1.0 mg/dL [facility] RBC, UA 105 /HPF [facility] WBC, UA 2 /HPF [facility] Specimen Source [facility] Specimen Urine Performing Organization Address City/[facility]/Zipcode Phone Number [facility] [address] [place] [address] [phone] [place] Blood Culture - Routine (Right Venipuncture) (08/11/2018 12:25 AM CDT)Only the most recent of2 resultswithin the time period is included. Result No growth in 5 days [facility] Specimen Blood Performing Organization Address City/[facility]/Zipcode Phone Number [address] [address] [place] Lipase (08/11/2018 12:24 AM CDT) Lipase 23 8 - 78 U/L [facility] Specimen Blood Performing Organization Address [facility] Phone Number [address] [address] [phone] [place] XR chest 1 view portable / bedside [...] MD Report Verified Date/Time:08/10/2018 23:47:27 Reading Location: [facility] C013W Consult Reading Room Procedure Note [...] Report Verified Date/Time: 08/10/2018 23:47:27 Reading Location: [facility] B1 C013W Consult Reading Room Performing Organization Address City/State/Zipcode Phone Number [facility] TSH/Free T4 If Indicated (08/10/2018 7:00 PM CDT) TSH 0.30 (L) 0.35 - 4.94 uIU/mL [facility] Specimen Blood Performing Organization Address City/[facility] Phone Number [address] [address] [phone] CENTER T4, free (08/10/2018 7:00 PM CDT) Free T4 0.86 0.70 - 1.48 ng/dL [facility] Specimen Blood Performing Organization Address [facility] Phone Number [address] [address] CENTER Ammonia (08/10/2018 7:00 PM CDT) Ammonia 29 18 - 72 mol/L [facility] Specimen Blood Performing Organization Address [facility] Phone Number [address] [address] CENTER PT/aPTT (08/10/2018 5:44 PM CDT) Protime 14.8 (H) 11.9 - 14.2 seconds [facility] INR 1.2 <=5.9 [facility] PTT 30.3 22.5 - 36.0 seconds [facility] Specimen Blood Narrative Performed At Effective 07/15/2018: PT Reference Range [facility] Change New: 11.9-14.2Previous: 11.7-14.7 RECOMMENDED COUMADIN/WARFARIN INR THERAPY RANGES STANDARD DOSE: 2.0-3.0Includes: PROPHYLAXIS for venous thrombosis, systemic embolization; TREATMENT for venous thrombosis and/or pulmonary embolus. HIGH RISK: Target INR is 2.5-3.5 for patients wiht mechanical heart valves. Performing Organization Address City/[facility]/Zipcode Phone Number [address] [address] CENTER Hemoglobin A1c (08/10/2018 5:44 PM CDT) Hemoglobin A1C 7.5 (H) 4.3 - 6.1 % [facility] [facility] Specimen Blood Performing Organization Address [facility] Phone Number [address] [address] CENTER B-type Natriuretic Factor (BNP) (08/10/2018 5:43 PM CDT) BNP 876 (H) 0 - 100 pg/mL [facility] [facility] Specimen Blood Performing Organization Address [facility] Phone Number [address] [address] [place] 2D Echo W/Doppler(CW/PW/Color) (08/10/2018 4:59 PM CDT) Ejection Fraction [facility] ECHO [facility] Specimen Narrative Performed At Transthoracic Echocardiography Report (TTE) [facility] Demographics Patient Name JUDY CALHOUN Date of Study 08/10/2018 [id number] GenderFemale Visit Number [id number] RaceUnknown [id number] m Number [id number] Number Date of Birth1940 Referring Physician Shira Person Age78 year(s) 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 Charlene Vega [facility] Karan Phillip MD RD Physician Procedure Type [...] of Study 08/10/2018 Gender Female Visit Number [id number] Race Unknown Room Number 722 Number Date of 1940 Referring Physician Shira Person Age 78 year(s) 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 Charleneerma Vega [facility] Milk Driver Ivonne Brown, Interpreting Stevie Santoro MD [facility] Physician Procedure Type of Study TTE procedure:2DECHO [...] Number [id number] CPACS after 10/11/2017 Insurance Payer Benefit Plan / Group Subscriber ID Type Phone Address [employer] xxxxxxxx Maps Contracted ([place]) [place] [address] Advance Directives For more information, please contact:[address] [phone] Code Status Date Activated Date Inactivated Comments Full Code 08/10/2018 2:16 PM 08/18/2018 7:36 PM This code status was determined by: Patient Full Code 03/21/2016 6:40 PM 03/26/2016 4:41 PM This code status was determined by: Patient
--- OUTSIDE RECORDS SUMMARY | 2018-10-12 15:05 | XMS REPORT | Continuity of Care Document ---
:1940 Author Organization [facility] ice [place] Care Team Providers Name Role Phone [facility] Information [employer] Unavailable Unavailable Problems Problem Status Onset Classification Date Comments Source Date Reported M54.12 Active 10/02/19 [place] [id number] [place] Diabetes Active Problem 10/16/2015 [facility] Diabetes Resolved Problem 10/16/2015 [facility] Gastric reflux Active Problem 10/16/2015 [facility] HTN - Resolved Problem 10/16/2015 [facility] Hypertension [facility] Hypertension Active Problem 10/16/2015 [facility] RADICULOPATHY, Active [facility] C[facility] [place] Medications Medication Details Route [...] 2015 [facility] ELECTROLYTES eGFR 62 [facility] 2015 Comment: The Ortho eGFR is and [...] MYELOGRAM CT SCAN OF CERVICAL SPINE 10/13/2015 [facility] myelogram CT DATE: 10/13/2015 10:08 AM CDT [...] arthrosis to the right with probable fusion. Rskh-wc-dvtthlol right foraminal narrowing. C3-C4: Vzec-zj-ohwzkeaa grade 1 degenerative anterolisthesis of C3 on C4 with a 4 -- 5 mm posterior broad-based disc osteophyte complex indenting ventral cord with posterior cord displacement there and mild central canal narrowing. Cord is mildly flattened. Facet arthrosis greater to the left with hypertrophy noted clxq-xw-ptiwlnbf left and mild right foraminal narrowing. C4-C5: Slight degenerative retrolisthesis of C4 on C5 with a 3 -- 4 mm posterior disc osteophyte complex mildly compressing and flattening cord against prominent ligament flavum with mild to moderate ce ntral canal stenosis and mild cord flattening. Szbl-cz-reyvibbg bilateral foraminal narrowing secondary to facet and uncovertebral joint degeneration C5-C6: Mild degenerative retrolisthesis of C5 on C6 with a 4 -- 5 mm posterior disc osteophyte complex compressing cord against posterior elements. There is qvzi-fj-luhsnqhe central canal stenosis with cord flattening there [...] above. Spine cervical EXAM: Cervical MYELOGRAM 10/13/2015 [facility] myelogram DX DATE: 10/13/2015 10:07 AM CDT [...] with mild narrowing subarachnoid space. C3-C4 shows toce-sp-rrzrgfzm ventral and mild dorsal extradural defects mildly encroaching upon ventral cord with gmmr-nn-rpuouurb narrowing subarachnoid space C4-C5 shows moderate ventral [...] Number For Provider Date Date Visit [facility] Outpatient [id number] Fernie 09/28 09/29 [facility] Sp[facility] Spine [facility] [id number] Fernie 10/12 10/13 [facility] Orthopedic and and Spine Spine [facility] Procedures Procedure Code Date Perfomer Comments Source Abdominal [id number] Ortho hysterectomy and Spine Cholecystectomy [id number] [facility] Excision of lesion of [id number] [facility] phalanges of foot and Spine Assessment [...]
--- OUTSIDE RECORDS SUMMARY | 2018-10-12 15:06 | XMS REPORT ---
:1940 [facility] Address [address] [place] [address] Dr. Scott [address] [place] [id number] Care Team Providers Name Role Phone RYAN [...] PATIENT ID: WITH DOPPLER 16:58:00 exam:->hypertensionShould this [id number] Renal be performed at the ultrasound and [...] MDReport Verified Date/Time: 08/18/2018 16:58:13 Reading Location: [address] Radiology Reading Room UE EXAM 2018-08-18 Surgical Pathology Report 14:09:00 Case: [id number] Authorizing Provider: Roddy Bernard Collected: 08/15/2018 1652 Ordering Location: [address] Received: 08/17/2018 0800 Service Pathologist: Joanne [...] MALIGNANCY NOTED Signing Pathologist Direct Phone Line: [phone] y signed by Joanne Gu MD on 08/18/2018 at 2:09 PMPreliminary result electronically signed by Joanne Gu MD on 08/17/2018 at 6:32 [id number] X 2; 29207; 05896Npgfuv bile duct stonesA. Duodenal ulcers biopsy; B. [...] evaluated Immunohistochemistry technical testing was performed at [facility], Pathology Laboratory where it was developed and [...] (BEAKER) (test 141 mg/dL 70-110 TESTED AT [facility] [address] [facility] tbam=7788) [facility] [address] [id number] 06:53:00 Test Item Value Reference Range Comments MAGNESIUM (BEAKER) (test bxat=547) 1.9 mg/dL 1.6-2.6 BASIC METABOLIC [id number] 06:53:00 Test Item Value Reference Range Comments SODIUM (BEAKER) (test 134 meq/L 136-145 cjtt=866) POTASSIUM (BEAKER) (test 4.2 meq/L 3.5-5.1 pprg=646) CHLORIDE (BEAKER) (test 103 meq/L 98-107 hlqm=638) CO2 (BEAKER) (test 28 meq/L 22-29 obts=554) BLOOD UREA NITROGEN 12 mg/dL 7-21 (BEAKER) (test rohu=785) CREATININE (BEAKER) (test 0.74 mg/dL 0.57-1.25 cwzg=869) GLUCOSE RANDOM (BEAKER) 124 mg/dL 70-105 (test dsdr=928) CALCIUM (BEAKER) (test 9.9 mg/dL 8.4-10.2 eshx=907) EGFR (BEAKER) (test 76 mL/min/1.73 sq m ESTIMATED GFR IS NOT dych=9743) ACCURATE CREATININE CLEARANCE IN PREDICTING GLOMERULAR FILTRATION RATE. ESTIMATED GFR IS NOT APPLICABLE FOR DIALYSIS PATIENTS. HEPATIC FUNCTION [id number] 06:53:00 Test Item Value Reference Range Comments TOTAL PROTEIN (BEAKER) (test phma=590) 5.4 gm/dL 6.0-8.3 ALBUMIN (BEAKER) (test gznh=4780) 2.9 g/dL 3.5-5.0 BILIRUBIN TOTAL (BEAKER) (test ktnj=180) 0.4 mg/dL 0.2-1.2 BILIRUBIN DIRECT (BEAKER) (test qpxu=335) 0.2 mg/dL 0.1-0.5 ALKALINE PHOSPHATASE (BEAKER) (test eoil=802) 73 U/L 40-150 AST (SGOT) (BEAKER) (test fbia=704) 20 U/L 5-34 ALT (SGPT) (BEAKER) (test uict=623) 17 U/L 6-55 CBC (HEMOGRAM ONLY)2018-08-18 06:22:00 Test Item Value Reference Range Comments WHITE BLOOD CELL COUNT (BEAKER) (test boyu=914) 11.7 K/ L 3.5-10.5 RED BLOOD CELL COUNT (BEAKER) (test crns=822) 3.29 M/ L 3.93-5.22 HEMOGLOBIN (BEAKER) (test jehh=296) 10.4 GM/DL 11.2-15.7 HEMATOCRIT (BEAKER) (test wvtk=246) 31.8 % 34.1-44.9 MEAN CORPUSCULAR VOLUME (BEAKER) (test qjaf=288) 96.7 fL 79.4-94.8 MEAN CORPUSCULAR HEMOGLOBIN (BEAKER) (test 31.6 pg 25.6-32.2 rzew=920) MEAN CORPUSCULAR HEMOGLOBIN CONC (BEAKER) (test 32.7 GM/DL 32.2-35.5 ahxq=052) RED CELL DISTRIBUTION WIDTH (BEAKER) (test 16.6 % 11.7-14.4 cwxz=063) PLATELET COUNT (BEAKER) (test fuzg=399) 175 K/CU MM 150-450 MEAN PLATELET VOLUME (BEAKER) (test bqbc=400) 11.4 fL 9.4-12.3 NUCLEATED RED BLOOD CELLS (BEAKER) (test 0 /100 WBC 0-0 cyid=218) POCT-GLUCOSE [id number] 23:08:00 Test Item Value Reference Range Comments POC-GLUCOSE METER (BEAKER) 163 mg/dL 70-110 TESTED AT [place] [id number] [facility] (test ngkw=1852) [place] [id number] POCT-GLUCOSE [id number] 17:26:00 Test Item Value Reference Range Comments POC-GLUCOSE METER (BEAKER) 131 mg/dL 70-110 TESTED AT [address] (test kpbn=7871) [place] [address] PET, CARDIAC PERFUSION MULTIPLE STUDIES, REST AND [id number] 15:22: 00Reason for exam:->Exclude ischemiaFINAL REPORT PROCEDURE: MYOCARDIAL PERFUSION PET IMAGING (Rest/Stress)CPT CODE: 03164 INDICATION: Define extent of known CAD, chest [...] MDReport Verified Date/Time: 08/17/2018 15:22:38 Reading Location: [address] Reading Room POCT-GLUCOSE [id number] 13:27:00 Test Item Value Reference Range Comments POC-GLUCOSE METER (BEAKER) 130 mg/dL 70-110 TESTED AT [facility] [address] [facility] (test qlrm=0128) [facility] [address] CBC (HEMOGRAM ONLY)2018-08-17 07:52:00 Test Item Value Reference Range Comments WHITE BLOOD CELL COUNT (BEAKER) (test ouex=802) 10.6 K/ L 3.5-10.5 RED BLOOD CELL COUNT (BEAKER) (test xdya=097) 3.45 M/ L 3.93-5.22 HEMOGLOBIN (BEAKER) (test bdlk=402) 10.8 GM/DL 11.2-15.7 HEMATOCRIT (BEAKER) (test kfig=727) 32.9 % 34.1-44.9 MEAN CORPUSCULAR VOLUME (BEAKER) (test wdfh=803) 95.4 fL 79.4-94.8 MEAN CORPUSCULAR HEMOGLOBIN (BEAKER) (test 31.3 pg 25.6-32.2 xkur=471) MEAN CORPUSCULAR HEMOGLOBIN CONC (BEAKER) (test 32.8 GM/DL 32.2-35.5 kpyu=401) RED CELL DISTRIBUTION WIDTH (BEAKER) (test 16.1 % 11.7-14.4 kxev=053) PLATELET COUNT (BEAKER) (test yqhp=320) 177 K/CU MM 150-450 MEAN PLATELET VOLUME (BEAKER) (test gwtl=776) 11.2 fL 9.4-12.3 NUCLEATED RED BLOOD CELLS (BEAKER) (test 0 /100 WBC 0-0 fhsa=984) [id number] 07:43:00 Test Item Value Reference Range Comments MAGNESIUM (BEAKER) (test wtel=948) 1.6 mg/dL 1.6-2.6 BASIC METABOLIC [id number] 07:43:00 Test Item Value Reference Range Comments SODIUM (BEAKER) (test 136 meq/L 136-145 barr=421) POTASSIUM (BEAKER) (test 3.6 meq/L 3.5-5.1 siww=302) CHLORIDE (BEAKER) (test 102 meq/L 98-107 nvot=949) CO2 (BEAKER) (test 29 meq/L 22-29 jyqc=351) BLOOD UREA NITROGEN 10 mg/dL 7-21 (BEAKER) (test oofk=086) CREATININE (BEAKER) (test 0.74 mg/dL 0.57-1.25 rbca=449) GLUCOSE RANDOM (BEAKER) 134 mg/dL 70-105 (test jtgh=080) CALCIUM (BEAKER) (test 9.9 mg/dL 8.4-10.2 xaih=961) EGFR (BEAKER) (test 76 mL/min/1.73 sq m ESTIMATED GFR IS NOT wcpt=3315) ACCURATE CREATININE CLEARANCE IN PREDICTING GLOMERULAR FILTRATION RATE. ESTIMATED GFR IS NOT APPLICABLE FOR DIALYSIS PATIENTS. HEPATIC FUNCTION [id number] 07:43:00 Test Item Value Reference Range Comments TOTAL PROTEIN (BEAKER) (test sjgj=985) 5.2 gm/dL 6.0-8.3 ALBUMIN (BEAKER) (test lvys=7620) 2.8 g/dL 3.5-5.0 BILIRUBIN TOTAL (BEAKER) (test tedd=589) 0.5 mg/dL 0.2-1.2 BILIRUBIN DIRECT (BEAKER) (test qwmq=896) 0.3 mg/dL 0.1-0.5 ALKALINE PHOSPHATASE (BEAKER) (test dvow=800) 76 U/L 40-150 AST (SGOT) (BEAKER) (test wyjn=417) 21 U/L 5-34 ALT (SGPT) (BEAKER) (test nmlf=861) 17 U/L 6-55 POCT-GLUCOSE [id number] 07:24:00 Test Item Value Reference Range Comments POC-GLUCOSE METER (BEAKER) 144 mg/dL 70-110 TESTED AT [facility] [address] [facility] (test uexq=6240) [facility] [address] POCT-GLUCOSE [id number] 23:39:00 Test Item Value Reference Range Comments POC-GLUCOSE METER (BEAKER) 159 mg/dL 70-110 TESTED AT [place] [id number] [facility] (test uzii=7672) [facility] [address] POCT-GLUCOSE [id number] 17:20:00 Test Item Value Reference Range Comments POC-GLUCOSE METER (BEAKER) 168 mg/dL 70-110 TESTED AT [address] (test qmjq=9421) [facility] [address] COMPREHENSIVE METABOLIC [id number] 13:35:00 Test Item Value Reference Range Comments TOTAL PROTEIN (BEAKER) 5.4 gm/dL 6.0-8.3 (test cgho=309) ALBUMIN (BEAKER) (test 2.9 g/dL 3.5-5.0 vfpm=3311) ALKALINE PHOSPHATASE 86 U/L 40-150 (BEAKER) (test edtl=547) BILIRUBIN TOTAL (BEAKER) 0.4 mg/dL 0.2-1.2 (test omhk=490) SODIUM (BEAKER) (test 135 meq/L 136-145 csfu=705) POTASSIUM (BEAKER) (test 3.7 meq/L 3.5-5.1 zabi=472) CHLORIDE (BEAKER) (test 102 meq/L 98-107 xzch=119) CO2 (BEAKER) (test 28 meq/L 22-29 ssqa=420) BLOOD UREA NITROGEN 10 mg/dL 7-21 (BEAKER) (test mckd=005) CREATININE (BEAKER) (test 0.83 mg/dL 0.57-1.25 shuz=890) GLUCOSE RANDOM (BEAKER) 150 mg/dL 70-105 (test tong=967) CALCIUM (BEAKER) (test 10.0 mg/dL 8.4-10.2 heyi=840) AST (SGOT) (BEAKER) (test 25 U/L 5-34 lgin=370) ALT (SGPT) (BEAKER) (test 23 U/L 6-55 cfhp=151) EGFR (BEAKER) (test 66 mL/min/1.73 sq m ESTIMATED GFR IS NOT jrrh=1463) ACCURATE CREATININE CLEARANCE IN PREDICTING GLOMERULAR FILTRATION RATE. ESTIMATED GFR IS NOT APPLICABLE FOR DIALYSIS PATIENTS. CBC W/PLT COUNT & AUTO [id number] 13:14:00 Test Item Value Reference Range Comments WHITE BLOOD CELL COUNT (BEAKER) (test wfvr=116) 12.9 K/ L 3.5-10.5 RED BLOOD CELL COUNT (BEAKER) (test cgmh=649) 3.74 M/ L 3.93-5.22 HEMOGLOBIN (BEAKER) (test gqvv=220) 11.6 GM/DL 11.2-15.7 HEMATOCRIT (BEAKER) (test siru=451) 35.0 % 34.1-44.9 MEAN CORPUSCULAR VOLUME (BEAKER) (test uzxr=904) 93.6 fL 79.4-94.8 MEAN CORPUSCULAR HEMOGLOBIN (BEAKER) (test 31.0 pg 25.6-32.2 hrmu=502) MEAN CORPUSCULAR HEMOGLOBIN CONC (BEAKER) (test 33.1 GM/DL 32.2-35.5 deqj=999) RED CELL DISTRIBUTION WIDTH (BEAKER) (test 16.0 % 11.7-14.4 eyzy=257) PLATELET COUNT (BEAKER) (test ipie=642) 165 K/CU MM 150-450 MEAN PLATELET VOLUME (BEAKER) (test jfji=256) 10.1 fL 9.4-12.3 NUCLEATED RED BLOOD CELLS (BEAKER) (test 0 /100 WBC 0-0 dsst=763) NEUTROPHILS RELATIVE PERCENT (BEAKER) (test 84 % jiad=621) LYMPHOCYTES RELATIVE PERCENT (BEAKER) (test 7 % agky=115) MONOCYTES RELATIVE PERCENT (BEAKER) (test 7 % ehya=730) EOSINOPHILS RELATIVE PERCENT (BEAKER) (test 2 % cjvj=023) BASOPHILS RELATIVE PERCENT (BEAKER) (test 0 % bdfw=887) NEUTROPHILS ABSOLUTE COUNT (BEAKER) (test 10.89 K/ L 1.56-6.13 soia=779) LYMPHOCYTES ABSOLUTE COUNT (BEAKER) (test 0.90 K/ L 1.18-3.74 cxmf=891) MONOCYTES ABSOLUTE COUNT (BEAKER) (test 0.84 K/ L 0.24-0.36 pcpq=100) EOSINOPHILS ABSOLUTE COUNT (BEAKER) (test 0.20 K/ L 0.04-0.36 yhsl=645) BASOPHILS ABSOLUTE COUNT (BEAKER) (test 0.05 K/ L 0.01-0.08 nytd=841) IMMATURE GRANULOCYTES-RELATIVE PERCENT (BEAKER) 1 % 0-1 (test zpnw=1609) POCT-GLUCOSE [id number] 12:12:00 Test Item Value Reference Range Comments POC-GLUCOSE METER (BEAKER) 154 mg/dL 70-110 TESTED AT [address] (test phuv=9016) [place] [address] BLOOD [id number] 08:00:00 Test Item Value Reference Range Comments CULTURE (BEAKER) (test noqr=7252) No growth in 5 days BLOOD [id number] 08:00:00 Test Item Value Reference Range Comments CULTURE (BEAKER) (test jwij=9480) No growth in 5 days POCT-GLUCOSE [id number] 07:45:00 Test Item Value Reference Range Comments POC-GLUCOSE METER (BEAKER) 115 mg/dL 70-110 TESTED AT [address] (test obbs=9341) [place] [address] POCT-GLUCOSE [id number] 23:02:00 Test Item Value Reference Range Comments POC-GLUCOSE METER (BEAKER) 90 mg/dL 70-110 TESTED AT [address] (test nllm=7090) [place] [address] [place], [id number] 17:37:00INTRA OP IMAGINGReason for exam:->CBD STONESFINAL REPORT Fluoroscopy, less than 1 hour History:ERCP Comparison: none Findings:Fluoroscopic assistance was provided during ERCP. Fluoroscopic images taken were interpreted bythe referring clinician. Please see separate procedure note for full details. Total Fluoroscopy time: 79.2 seconds Number of fluoroscopic images obtained: Four Impression:Fluoroscopy assistance as described above. Signed: Enio Ley MDRjanet Verified Date/ Time: 08/15/2018 17:37:26 Reading Location: [facility] C013X [facility] Consult Reading Room POCT-GLUCOSE [id number] 17:35:00 Test Item Value Reference Range Comments POC-GLUCOSE METER (BEAKER) 180 mg/dL 70-110 TESTED AT [facility] [address] [facility] (test zxzn=0691) [facility] [address] POCT-GLUCOSE [id number] 07:57:00 Test Item Value Reference Range Comments POC-GLUCOSE METER (BEAKER) 129 mg/dL 70-110 TESTED AT [facility] [address] [facility] (test blms=9417) [facility] [address] [id number] 06:01:00 Test Item Value Reference Range Comments MAGNESIUM (BEAKER) (test haza=077) 1.6 mg/dL 1.6-2.6 BASIC METABOLIC [id number] 06:01:00 Test Item Value Reference Range Comments SODIUM (BEAKER) (test 138 meq/L 136-145 szxc=426) POTASSIUM (BEAKER) (test 3.8 meq/L 3.5-5.1 pxka=580) CHLORIDE (BEAKER) (test 108 meq/L 98-107 acbd=302) CO2 (BEAKER) (test 25 meq/L 22-29 uxlj=979) BLOOD UREA NITROGEN 7 mg/dL 7-21 (BEAKER) (test bins=517) CREATININE (BEAKER) (test 0.77 mg/dL 0.57-1.25 uyuc=025) GLUCOSE RANDOM (BEAKER) 123 mg/dL 70-105 (test xtax=196) CALCIUM (BEAKER) (test 10.0 mg/dL 8.4-10.2 ucww=450) EGFR (BEAKER) (test 72 mL/min/1.73 sq m ESTIMATED GFR IS NOT pazx=6065) ACCURATE CREATININE CLEARANCE IN PREDICTING GLOMERULAR FILTRATION RATE. ESTIMATED GFR IS NOT APPLICABLE FOR DIALYSIS PATIENTS. HEPATIC FUNCTION [id number] 06:01:00 Test Item Value Reference Range Comments TOTAL PROTEIN (BEAKER) (test xbms=117) 5.4 gm/dL 6.0-8.3 ALBUMIN (BEAKER) (test hvyv=8039) 2.9 g/dL 3.5-5.0 BILIRUBIN TOTAL (BEAKER) (test clpf=016) 0.5 mg/dL 0.2-1.2 BILIRUBIN DIRECT (BEAKER) (test pgtq=859) 0.3 mg/dL 0.1-0.5 ALKALINE PHOSPHATASE (BEAKER) (test ltab=306) 92 U/L 40-150 AST (SGOT) (BEAKER) (test zblt=587) 33 U/L 5-34 ALT (SGPT) (BEAKER) (test ixbn=086) 30 U/L 6-55 CBC (HEMOGRAM ONLY)2018-08-15 04:44:00 Test Item Value Reference Range Comments WHITE BLOOD CELL COUNT (BEAKER) (test baya=130) 11.8 K/ L 3.5-10.5 RED BLOOD CELL COUNT (BEAKER) (test tcsq=164) 3.97 M/ L 3.93-5.22 HEMOGLOBIN (BEAKER) (test ssnh=325) 12.6 GM/DL 11.2-15.7 HEMATOCRIT (BEAKER) (test bhse=043) 37.4 % 34.1-44.9 MEAN CORPUSCULAR VOLUME (BEAKER) (test uvne=417) 94.2 fL 79.4-94.8 MEAN CORPUSCULAR HEMOGLOBIN (BEAKER) (test 31.7 pg 25.6-32.2 ofrb=688) MEAN CORPUSCULAR HEMOGLOBIN CONC (BEAKER) (test 33.7 GM/DL 32.2-35.5 ddvo=900) RED CELL DISTRIBUTION WIDTH (BEAKER) (test 15.8 % 11.7-14.4 jeru=609) PLATELET COUNT (BEAKER) (test izht=581) 189 K/CU MM 150-450 MEAN PLATELET VOLUME (BEAKER) (test zrkn=189) 10.7 fL 9.4-12.3 NUCLEATED RED BLOOD CELLS (BEAKER) (test 0 /100 WBC 0-0 ndup=294) POCT-GLUCOSE [id number] 23:38:00 Test Item Value Reference Range Comments POC-GLUCOSE METER (BEAKER) 137 mg/dL 70-110 TESTED AT [address] (test qrvy=5415) [facility] [address] POCT-GLUCOSE [id number] 12:13:00 Test Item Value Reference Range Comments POC-GLUCOSE METER (BEAKER) 159 mg/dL 70-110 TESTED AT [address] (test aciy=7494) [facility] [address] POCT-GLUCOSE [id number] 08:11:00 Test Item Value Reference Range Comments POC-GLUCOSE METER (BEAKER) 138 mg/dL 70-110 TESTED AT [facility] [address] (test stej=0788) [facility] [address] [id number] 06:01:00 Test Item Value Reference Range Comments MAGNESIUM (BEAKER) (test avmg=864) 1.7 mg/dL 1.6-2.6 BASIC METABOLIC [id number] 06:01:00 Test Item Value Reference Range Comments SODIUM (BEAKER) (test 138 meq/L 136-145 fxvp=512) POTASSIUM (BEAKER) (test 3.8 meq/L 3.5-5.1 todm=242) CHLORIDE (BEAKER) (test 109 meq/L 98-107 qpsb=130) CO2 (BEAKER) (test 26 meq/L 22-29 oudc=467) BLOOD UREA NITROGEN 10 mg/dL 7-21 (BEAKER) (test xoyo=642) CREATININE (BEAKER) (test 0.80 mg/dL 0.57-1.25 kyrw=324) GLUCOSE RANDOM (BEAKER) 106 mg/dL 70-105 (test euzd=908) CALCIUM (BEAKER) (test 9.4 mg/dL 8.4-10.2 crbe=022) EGFR (BEAKER) (test 69 mL/min/1.73 sq m ESTIMATED GFR IS NOT pcbt=8308) ACCURATE CREATININE CLEARANCE IN PREDICTING GLOMERULAR FILTRATION RATE. ESTIMATED GFR IS NOT APPLICABLE FOR DIALYSIS PATIENTS. HEPATIC FUNCTION [id number] 06:01:00 Test Item Value Reference Range Comments TOTAL PROTEIN (BEAKER) (test xdju=918) 5.4 gm/dL 6.0-8.3 ALBUMIN (BEAKER) (test jnap=6257) 2.9 g/dL 3.5-5.0 BILIRUBIN TOTAL (BEAKER) (test icfx=926) 0.5 mg/dL 0.2-1.2 BILIRUBIN DIRECT (BEAKER) (test rood=458) 0.4 mg/dL 0.1-0.5 ALKALINE PHOSPHATASE (BEAKER) (test wjks=017) 105 U/L 40-150 AST (SGOT) (BEAKER) (test thhd=546) 33 U/L 5-34 ALT (SGPT) (BEAKER) (test vnps=514) 31 U/L 6-55 CBC (HEMOGRAM ONLY)2018-08-14 05:10:00 Test Item Value Reference Range Comments WHITE BLOOD CELL COUNT (BEAKER) (test akvg=792) 10.6 K/ L 3.5-10.5 RED BLOOD CELL COUNT (BEAKER) (test inhw=377) 3.87 M/ L 3.93-5.22 HEMOGLOBIN (BEAKER) (test ubtd=778) 12.0 GM/DL 11.2-15.7 HEMATOCRIT (BEAKER) (test lgqc=097) 36.9 % 34.1-44.9 MEAN CORPUSCULAR VOLUME (BEAKER) (test akvs=071) 95.3 fL 79.4-94.8 MEAN CORPUSCULAR HEMOGLOBIN (BEAKER) (test 31.0 pg 25.6-32.2 ktyy=217) MEAN CORPUSCULAR HEMOGLOBIN CONC (BEAKER) (test 32.5 GM/DL 32.2-35.5 fgpz=645) RED CELL DISTRIBUTION WIDTH (BEAKER) (test 15.7 % 11.7-14.4 jrpx=004) PLATELET COUNT (BEAKER) (test swoy=557) 158 K/CU MM 150-450 MEAN PLATELET VOLUME (BEAKER) (test urip=299) 11.0 fL 9.4-12.3 NUCLEATED RED BLOOD CELLS (BEAKER) (test 0 /100 WBC 0-0 lobv=990) POCT-GLUCOSE [id number] 23:53:00 Test Item Value Reference Range Comments POC-GLUCOSE METER (BEAKER) 115 mg/dL 70-110 TESTED AT [address] (test rsmr=3197) [facility] [address] POCT-GLUCOSE [id number] 16:48:00 Test Item Value Reference Range Comments POC-GLUCOSE METER (BEAKER) 83 mg/dL 70-110 TESTED AT [address] (test tzok=1657) [facility] [address] POCT-GLUCOSE [id number] 13:19:00 Test Item Value Reference Range Comments POC-GLUCOSE METER (BEAKER) 102 mg/dL 70-110 TESTED AT [address] (test wxtf=4144) [facility] [address] POCT-GLUCOSE [id number] 12:02:00 Test Item Value Reference Range Comments POC-GLUCOSE METER (BEAKER) 95 mg/dL 70-110 [address] (test qqdl=0195) [facility] [address] POCT-GLUCOSE [id number] 07:22:00 Test Item Value Reference Range Comments POC-GLUCOSE METER (BEAKER) 109 mg/dL 70-110 TESTED AT [facility] [address] [facility] (test rgwb=7794) [facility] [address] [id number] 04:31:00 Test Item Value Reference Range Comments MAGNESIUM (BEAKER) (test 1.7 mg/dL 1.6-2.6 Specimen slightly hemolyzed kfra=226) BASIC METABOLIC [id number] 04:31:00 Test Item Value Reference Range Comments SODIUM (BEAKER) (test 140 meq/L 136-145 ltsf=763) POTASSIUM (BEAKER) (test 3.6 meq/L 3.5-5.1 Specimen slightly xubg=080) hemolyzed CHLORIDE (BEAKER) (test 111 meq/L 98-107 hcex=044) CO2 (BEAKER) (test 24 meq/L 22-29 rsvh=474) BLOOD UREA NITROGEN 12 mg/dL 7-21 (BEAKER) (test agrk=112) CREATININE (BEAKER) (test 0.79 mg/dL 0.57-1.25 Specimen slightly efca=181) hemolyzed GLUCOSE RANDOM (BEAKER) 110 mg/dL 70-105 (test uesk=097) CALCIUM (BEAKER) (test 9.5 mg/dL 8.4-10.2 jzjb=070) EGFR (BEAKER) (test 70 mL/min/1.73 sq m ESTIMATED GFR IS NOT iplf=0928) ACCURATE CREATININE CLEARANCE IN PREDICTING GLOMERULAR FILTRATION RATE. ESTIMATED GFR IS NOT APPLICABLE FOR DIALYSIS PATIENTS. HEPATIC FUNCTION [id number] 04:31:00 Test Item Value Reference Range Comments TOTAL PROTEIN (BEAKER) (test 5.2 gm/dL 6.0-8.3 Specimen slightly hemolyzed otmn=734) ALBUMIN (BEAKER) (test 2.7 g/dL 3.5-5.0 Specimen slightly hemolyzed bnzx=6362) BILIRUBIN TOTAL (BEAKER) (test 0.7 mg/dL 0.2-1.2 Specimen slightly hemolyzed gria=009) BILIRUBIN DIRECT (BEAKER) (test 0.3 mg/dL 0.1-0.5 Specimen slightly hemolyzed lnti=547) ALKALINE PHOSPHATASE (BEAKER) 118 U/L 40-150 (test fiuf=513) AST (SGOT) (BEAKER) (test 52 U/L 5-34 Specimen slightly hemolyzed vmlu=393) ALT (SGPT) (BEAKER) (test 43 U/L 6-55 Specimen slightly hemolyzed xnwe=906) CBC (HEMOGRAM ONLY)2018-08-13 03:56:00 Test Item Value Reference Range Comments WHITE BLOOD CELL COUNT (BEAKER) (test heln=205) 9.7 K/ L 3.5-10.5 RED BLOOD CELL COUNT (BEAKER) (test nweu=147) 3.51 M/ L 3.93-5.22 HEMOGLOBIN (BEAKER) (test gqkr=383) 11.0 GM/DL 11.2-15.7 HEMATOCRIT (BEAKER) (test ojid=755) 33.1 % 34.1-44.9 MEAN CORPUSCULAR VOLUME (BEAKER) (test lqut=199) 94.3 fL 79.4-94.8 MEAN CORPUSCULAR HEMOGLOBIN (BEAKER) (test 31.3 pg 25.6-32.2 zptt=749) MEAN CORPUSCULAR HEMOGLOBIN CONC (BEAKER) (test 33.2 GM/DL 32.2-35.5 urwp=864) RED CELL DISTRIBUTION WIDTH (BEAKER) (test 15.3 % 11.7-14.4 lpac=086) PLATELET COUNT (BEAKER) (test kfmd=606) 128 K/CU MM 150-450 MEAN PLATELET VOLUME (BEAKER) (test dsft=808) 11.1 fL 9.4-12.3 NUCLEATED RED BLOOD CELLS (BEAKER) (test 0 /100 WBC 0-0 nxzp=514) POCT-GLUCOSE [id number] 22:11:00 Test Item Value Reference Range Comments POC-GLUCOSE METER (BEAKER) 138 mg/dL 70-110 TESTED AT [address] (test khfc=6706) [place] [id number] POCT-GLUCOSE [id number] 16:28:00 Test Item Value Reference Range Comments POC-GLUCOSE METER (BEAKER) 155 mg/dL 70-110 TESTED AT [address] (test kojl=2366) [facility] [id number] [address], [id number] 13:32:00FINAL REPORT CT abdomen and pelvis without [...] right greater than left. Signed: [facility] Verified Date/Time: 08/12/2018 13:32:12 Reading Location: [facility] Diagnostic Imaging Reading Room - [place] [address] CT, BRAIN, WITHOUT [id number] 12:57:00FINAL REPORT CT, BRAIN, WITHOUT CONTRAST CLINICAL [...] Motta Verified Date/Time: 2018 12:57:37 Reading Location: [facility] Radiology Reading Room POCT -GLUCOSE [id number] 12:48:00 Test Item Value Reference Range Comments POC-GLUCOSE METER (BEAKER) 156 mg/dL 70-110 TESTED AT [address] (test lqqv=4661) [facility] [address] POCT-GLUCOSE [id number] 07:16:00 Test Item Value Reference Range Comments POC-GLUCOSE METER (BEAKER) 157 mg/dL 70-110 TESTED AT [address] (test bggw=8503) [facility] [address] VITAMIN [id number] 05:53:00 Test Item Value Reference Range Comments VITAMIN B12 (BEAKER) (test yfba=576) 1063 pg/mL 213-816 [id number] 05:27:00 Test Item Value Reference Range Comments MAGNESIUM (BEAKER) (test oxzf=504) 1.7 mg/dL 1.6-2.6 BASIC METABOLIC [id number] 05:27:00 Test Item Value Reference Range Comments SODIUM (BEAKER) (test 140 meq/L 136-145 oinw=485) POTASSIUM (BEAKER) (test 3.6 meq/L 3.5-5.1 hhhx=945) CHLORIDE (BEAKER) (test 109 meq/L 98-107 cdkl=002) CO2 (BEAKER) (test 27 meq/L 22-29 kedj=623) BLOOD UREA NITROGEN 16 mg/dL 7-21 (BEAKER) (test ktok=768) CREATININE (BEAKER) (test 0.88 mg/dL 0.57-1.25 csrp=652) GLUCOSE RANDOM (BEAKER) 152 mg/dL 70-105 (test adxe=955) CALCIUM (BEAKER) (test 9.7 mg/dL 8.4-10.2 qdoo=358) EGFR (BEAKER) (test 62 mL/min/1.73 sq m ESTIMATED GFR IS NOT kgev=9695) ACCURATE CREATININE CLEARANCE IN PREDICTING GLOMERULAR FILTRATION RATE. ESTIMATED GFR IS NOT APPLICABLE FOR DIALYSIS PATIENTS. HEPATIC FUNCTION [id number] 05:27:00 Test Item Value Reference Range Comments TOTAL PROTEIN (BEAKER) (test zhzt=608) 5.9 gm/dL 6.0-8.3 ALBUMIN (BEAKER) (test wfnh=2761) 3.2 g/dL 3.5-5.0 BILIRUBIN TOTAL (BEAKER) (test dpwl=664) 1.1 mg/dL 0.2-1.2 BILIRUBIN DIRECT (BEAKER) (test gewe=463) 0.7 mg/dL 0.1-0.5 ALKALINE PHOSPHATASE (BEAKER) (test yjgm=463) 77 U/L 40-150 AST (SGOT) (BEAKER) (test bvgl=766) 26 U/L 5-34 ALT (SGPT) (BEAKER) (test kxmu=082) 19 U/L 6-55 LACTIC ACID, [id number] 05:12:00 Test Item Value Reference Range Comments LACTATE BLOOD VENOUS (2) 0.9 mmol/L 0.5-2.2 Specimen slightly hemolyzed (BEAKER) (test pdbi=4186) CBC (HEMOGRAM ONLY)2018-08-12 05:00:00 Test Item Value Reference Range Comments WHITE BLOOD CELL COUNT (BEAKER) (test zzhc=435) 12.8 K/ L 3.5-10.5 RED BLOOD CELL COUNT (BEAKER) (test doyb=810) 3.82 M/ L 3.93-5.22 HEMOGLOBIN (BEAKER) (test vkbl=873) 12.1 GM/DL 11.2-15.7 HEMATOCRIT (BEAKER) (test zwoz=263) 36.4 % 34.1-44.9 MEAN CORPUSCULAR VOLUME (BEAKER) (test bovb=962) 95.3 fL 79.4-94.8 MEAN CORPUSCULAR HEMOGLOBIN (BEAKER) (test 31.7 pg 25.6-32.2 kfwj=533) MEAN CORPUSCULAR HEMOGLOBIN CONC (BEAKER) (test 33.2 GM/DL 32.2-35.5 runk=932) RED CELL DISTRIBUTION WIDTH (BEAKER) (test 15.3 % 11.7-14.4 ossg=281) PLATELET COUNT (BEAKER) (test fted=893) 154 K/CU MM 150-450 MEAN PLATELET VOLUME (BEAKER) (test fxhm=607) 11.0 fL 9.4-12.3 NUCLEATED RED BLOOD CELLS (BEAKER) (test 0 /100 WBC 0-0 ymih=861) TROPONIN [id number] 01:40:00 Test Item Value Reference Range Comments TROPONIN I (BEAKER) (test vlfx=223) 0.02 ng/mL 0.00-0.03 Troponin I (TnI) levels [...] acidosis, acute neurological disease, and persistent tachyarrhythmia.POCT-GLUCOSE [id number] 22:32:00 Test Item Value Reference Range Comments POC-GLUCOSE METER (BEAKER) 154 mg/dL 70-110 TESTED AT [facility] [address] [facility] [facility] (test dzxp=4393) [facility] [address] [id number] 22:27:00 Test Item Value Reference Range Comments PROCALCITONIN (BEAKER) (test xmyw=0142) < ng/mL <0.05 SEPSIS RISK (ng/mL)Low: 0.05-0.50Intermediate: 0.51-2.00High: & gt;=2.01TROPONIN [id number] 18:31:00 Test Item Value Reference Range Comments TROPONIN I (BEAKER) (test nzyy=946) 0.01 ng/mL 0.00-0.03 Troponin I (TnI) levels [...] acidosis, acute neurological disease, and persistent tachyarrhythmia.POCT-GLUCOSE [id number] 12:21:00 Test Item Value Reference Range Comments POC-GLUCOSE METER (BEAKER) 178 mg/dL 70-110 TESTED AT [address] (test kgsb=2974) [facility] [address] RAD, ABDOMEN/KUB, 1 VIEW [id number] 11:42:00Reason for exam:->abdominal painShould this be performed [...] mesh is again seen. Signed: Ken Bunn MDReport Verified Date/ Time: 08/11/2018 11:42:12 Reading Location: [facility] Radiology Reading Room POCT -BLOOD GASES, [id number] 09:41:00 Test Item Value Reference Range Comments TEMP, CELSIUS-POC (BEAKER) 36.9 (test ovla=5604) FIO2-POC (BEAKER) (test 28 TESTED AT [address] ngqx=1166) [facility] [address] PH, VENOUS-POC (BEAKER) 7.344 7.320-7.420 (test ddaj=0214) PCO2, VENOUS-POC (BEAKER) 48.8 mm Hg 41.0-51.0 (test zzul=3029) PO2, VENOUS-POC (BEAKER) 36.0 mm Hg 25.0-40.0 (test quud=4693) SO2, VENOUS-POC (BEAKER) 66.0 % 40.0-70.0 (test uxmi=8110) HCO3, VENOUS-POC (BEAKER) 26.6 meq/L 21.0-29.0 (test jsdu=9576) BASE EXCESS, VENOUS-POC 1.0 meq/L -2.0-3.0 (BEAKER) (test grwp=1816) [id number] 09:41:00 Test Item Value Reference Range Comments POC-SODIUM (BEAKER) (test 142 meq/L 135-148 TESTED AT [address] wftk=3106) [place] [address] [id number] 09:41:00 Test Item Value Reference Range Comments POC-POTASSIUM (BEAKER) (test 3.6 meq/L 3.6-5.5 TESTED AT [address] edwl=4581) [place] [address] [id number] 09:41:00 Test Item Value Reference Range Comments POC-GLUCOSE (BEAKER) (test 165 mg/dL 70-110 TESTED AT [address] gpmc=5796) [place] [address] POCT-CALCIUM [id number] 09:41:00 Test Item Value Reference Range Comments POC-CALCIUM IONIZED (BEAKER) 1.50 mmol/L 1.12-1.27 TESTED AT [address] (test erpb=1373) [place] [address] [id number] 09:41:00 Test Item Value Reference Range Comments POC-HEMATOCRIT (BEAKER) (test 34 % 36-45 TESTED AT [address] jsbb=9964) [place] [address] [id number] 09:41:00 Test Item Value Reference Range Comments POC-HEMOGLOBIN (BEAKER) 11.6 g/dL 12.0-15.0 TESTED AT [address] (test nagg=7311) [place] [address]TESTED AT [place] [address] POCT-LACTIC ACID, [id number] 09:41:00 Test Item Value Reference Range Comments POC-LACTIC ACID, VENOUS 0.9 mmol/L 0.9-1.7 TESTED AT [address] (BEAKER) (test zlqz=4104) [place] [address] URINALYSIS W/ REFLEX URINE [id number] 09:28:00 Test Item Value Reference Range Comments COLOR (BEAKER) (test ruhe=959) Yellow CLARITY (BEAKER) (test sqkp=246) Clear SPECIFIC GRAVITY UA (BEAKER) (test jzxf=353) 1.012 1.001-1.035 PH UA (BEAKER) (test trvs=128) 6.0 5.0-8.0 PROTEIN UA (BEAKER) (test zqcy=267) 10 mg/dL Negative GLUCOSE UA (BEAKER) (test jmkw=969) 50 mg/dL Negative KETONES UA (BEAKER) (test khed=210) 20 mg/dL Negative BILIRUBIN UA (BEAKER) (test vqwz=384) Negative Negative BLOOD UA (BEAKER) (test ectb=045) Moderate Negative NITRITE UA (BEAKER) (test khjx=153) Negative Negative LEUKOCYTE ESTERASE UA (BEAKER) (test quss=956) Negative Negative UROBILINOGEN UA (BEAKER) (test kkmp=729) 0.2 mg/dL 0.2-1.0 RBC UA (BEAKER) (test nxjr=028) 105 /HPF WBC UA (BEAKER) (test rakk=325) 2 /HPF SOURCE(BEAKER) (test qkka=0677) POCT-GLUCOSE [id number] 09:17:00 Test Item Value Reference Range Comments POC-GLUCOSE METER (BEAKER) 172 mg/dL 70-110 TESTED AT [facility] [address] [facility] (test ukgo=9711) [facility] [address] [id number] 06:43:00 Test Item Value Reference Range Comments MAGNESIUM (BEAKER) (test iybp=305) 1.7 mg/dL 1.6-2.6 BASIC METABOLIC [id number] 06:43:00 Test Item Value Reference Range Comments SODIUM (BEAKER) (test 140 meq/L 136-145 uloc=565) POTASSIUM (BEAKER) (test 3.7 meq/L 3.5-5.1 juwy=491) CHLORIDE (BEAKER) (test 110 meq/L 98-107 nosp=124) CO2 (BEAKER) (test 25 meq/L 22-29 vcsv=769) BLOOD UREA NITROGEN 16 mg/dL 7-21 (BEAKER) (test srdy=266) CREATININE (BEAKER) (test 0.78 mg/dL 0.57-1.25 scrs=703) GLUCOSE RANDOM (BEAKER) 163 mg/dL 70-105 (test tbhf=135) CALCIUM (BEAKER) (test 10.3 mg/dL 8.4-10.2 xgdu=333) EGFR (BEAKER) (test 71 mL/min/1.73 sq m ESTIMATED GFR IS NOT xrwu=1640) ACCURATE CREATININE CLEARANCE IN PREDICTING GLOMERULAR FILTRATION RATE. ESTIMATED GFR IS NOT APPLICABLE FOR DIALYSIS PATIENTS. HEPATIC FUNCTION [id number] 06:43:00 Test Item Value Reference Range Comments TOTAL PROTEIN (BEAKER) (test nmgk=230) 5.8 gm/dL 6.0-8.3 ALBUMIN (BEAKER) (test crvx=3345) 3.2 g/dL 3.5-5.0 BILIRUBIN TOTAL (BEAKER) (test wnnf=618) 1.1 mg/dL 0.2-1.2 BILIRUBIN DIRECT (BEAKER) (test rrqq=413) 0.7 mg/dL 0.1-0.5 ALKALINE PHOSPHATASE (BEAKER) (test qnwz=156) 76 U/L 40-150 AST (SGOT) (BEAKER) (test hokh=708) 23 U/L 5-34 ALT (SGPT) (BEAKER) (test sxtp=622) 20 U/L 6-55 CBC (HEMOGRAM ONLY)2018-08-11 05:56:00 Test Item Value Reference Range Comments WHITE BLOOD CELL COUNT (BEAKER) (test zzsk=263) 15.2 K/ L 3.5-10.5 RED BLOOD CELL COUNT (BEAKER) (test wydp=210) 3.68 M/ L 3.93-5.22 HEMOGLOBIN (BEAKER) (test gscz=869) 11.5 GM/DL 11.2-15.7 HEMATOCRIT (BEAKER) (test qock=309) 35.4 % 34.1-44.9 MEAN CORPUSCULAR VOLUME (BEAKER) (test cjhh=287) 96.2 fL 79.4-94.8 MEAN CORPUSCULAR HEMOGLOBIN (BEAKER) (test 31.3 pg 25.6-32.2 rfzm=501) MEAN CORPUSCULAR HEMOGLOBIN CONC (BEAKER) (test 32.5 GM/DL 32.2-35.5 fjql=164) RED CELL DISTRIBUTION WIDTH (BEAKER) (test 15.8 % 11.7-14.4 wrtc=397) PLATELET COUNT (BEAKER) (test psah=038) 139 K/CU MM 150-450 MEAN PLATELET VOLUME (BEAKER) (test bqca=515) 11.3 fL 9.4-12.3 NUCLEATED RED BLOOD CELLS (BEAKER) (test 0 /100 WBC 0-0 hawk=512) TROPONIN [id number] 01:18:00 Test Item Value Reference Range Comments TROPONIN I (BEAKER) (test jpuh=056) 0.04 ng/mL 0.00-0.03 Troponin I (TnI) levels [...] failure, acidosis, acute neurological disease, and persistent tachyarrhythmia.[id number] 01:13:00 Test Item Value Reference Range Comments MAGNESIUM (BEAKER) (test rsop=898) 1.6 mg/dL 1.6-2.6 BASIC METABOLIC [id number] 01:13:00 Test Item Value Reference Range Comments SODIUM (BEAKER) (test 138 meq/L 136-145 otvv=886) POTASSIUM (BEAKER) (test 3.7 meq/L 3.5-5.1 amqt=113) CHLORIDE (BEAKER) (test 109 meq/L 98-107 yokz=315) CO2 (BEAKER) (test 26 meq/L 22-29 qthx=638) BLOOD UREA NITROGEN 15 mg/dL 7-21 (BEAKER) (test bbge=338) CREATININE (BEAKER) (test 0.74 mg/dL 0.57-1.25 hzfw=062) GLUCOSE RANDOM (BEAKER) 147 mg/dL 70-105 (test pjcn=057) CALCIUM (BEAKER) (test 10.0 mg/dL 8.4-10.2 uuzi=500) EGFR (BEAKER) (test 76 mL/min/1.73 sq m ESTIMATED GFR IS NOT zwsa=0496) ACCURATE CREATININE CLEARANCE IN PREDICTING GLOMERULAR FILTRATION RATE. ESTIMATED GFR IS NOT APPLICABLE FOR DIALYSIS PATIENTS. HEPATIC FUNCTION [id number] 01:13:00 Test Item Value Reference Range Comments TOTAL PROTEIN (BEAKER) (test lhjt=117) 5.8 gm/dL 6.0-8.3 ALBUMIN (BEAKER) (test lpjt=7020) 3.1 g/dL 3.5-5.0 BILIRUBIN TOTAL (BEAKER) (test vsnn=506) 1.0 mg/dL 0.2-1.2 BILIRUBIN DIRECT (BEAKER) (test iios=882) 0.6 mg/dL 0.1-0.5 ALKALINE PHOSPHATASE (BEAKER) (test vcpr=642) 75 U/L 40-150 AST (SGOT) (BEAKER) (test ibrx=701) 20 U/L 5-34 ALT (SGPT) (BEAKER) (test acda=487) 18 U/L 6-55 [id number] 01:13:00 Test Item Value Reference Range Comments LIPASE (BEAKER) (test rcye=586) 23 U/L 8-78 RAD, CHEST, 1 VIEW, NON [id number] 23:47:00Reason for exam:->piccShould this be performed at the bedside?->YesFINAL REPORT INDICATION: picc TECHNIQUE: Chest radiograph, single view, portable technique. FINDINGS / IMPRESSION: There is a right PICC line that terminates in the low SVC. Heart shadow is enlarged. There is a right perihilar opacity or mass. No pneumothorax or pleural effusionis demonstrated. Osseous structures unremarkable. Signed: Paulie Ndiaye Verified Date/Time: 08/10/2018 23:47:27 Reading Location: [address] Consult Reading Room POCT-GLUCOSE [id number] 23:29:00 Test Item Value Reference Range Comments POC-GLUCOSE METER (BEAKER) 158 mg/dL 70-110 TESTED AT [facility] [address] [facility] (test sgxi=2257) [facility] [address] HEMOGLOBIN [id number] 22:17:00 Test Item Value Reference Range Comments HEMOGLOBIN A1C (BEAKER) (test lbvj=164) 7.5 % 4.3-6.1 T4, [id number] 20:54:00 Test Item Value Reference Range Comments FREE T4 (BEAKER) (test iwsq=723) 0.86 ng/dL 0.70-1.48 TSH/FREE T4 IF [id number] 20:22:00 Test Item Value Reference Range Comments THYROID STIMULATING HORMONE (BEAKER) (test 0.30 uIU/mL 0.35-4.94 lqmy=654) [id number] 19:31:00 Test Item Value Reference Range Comments AMMONIA (BEAKER) (test nwre=993) 29 mol/L 18-72 B-TYPE NATRIURETIC FACTOR (BNP)2018-08-10 18:48:00 Test Item Value Reference Range Comments B-TYPE NATRIURETIC PEPTIDE (BEAKER) (test 876 pg/mL 0-100 vvtz=788) LACTIC ACID, [id number] 18:47:00 Test Item Value Reference Range Comments LACTATE BLOOD VENOUS (2) 1.0 mmol/L 0.5-2.2 Specimen slightly hemolyzed (BEAKER) (test wfis=5710) POCT-GLUCOSE [id number] 18:30:00 Test Item Value Reference Range Comments POC-GLUCOSE METER (BEAKER) 149 mg/dL 70-110 TESTED AT [facility] [address] [place] [address] (test ileg=3416) [facility] [address] [id number] 18:27:00 Test Item Value Reference Range Comments PROTIME (BEAKER) (test aesm=966) 14.8 seconds 11.9-14.2 INR (BEAKER) (test tgnn=222) 1.2 <=5.9 PARTIAL THROMBOPLASTIN TIME (BEAKER) (test 30.3 seconds 22.5-36.0 payy=837) Effective 07/15/2018: PT Reference Range ChangeNew: 11.9-14.2 Previous: 11.7- 14.7RECOMMENDED COUMADIN/WARFARIN INR THERAPY RANGESSTANDARD DOSE: 2.0-3.0 Includes: PROPHYLAXIS for venous thrombosis, systemic embolization; TREATMENT for venous thrombosis and/or pulmonary embolus.HIGH RISK: Target INR is2.5-3.5 for patients wiht mechanical heart valves.CBC W/PLT COUNT & AUTO [id number] 18:08:00 Test Item Value Reference Range Comments WHITE BLOOD CELL COUNT (BEAKER) (test ssbh=104) 15.4 K/ L 3.5-10.5 RED BLOOD CELL COUNT (BEAKER) (test iind=307) 3.77 M/ L 3.93-5.22 HEMOGLOBIN (BEAKER) (test wvxy=390) 11.8 GM/DL 11.2-15.7 HEMATOCRIT (BEAKER) (test cpad=620) 36.2 % 34.1-44.9 MEAN CORPUSCULAR VOLUME (BEAKER) (test crrq=311) 96.0 fL 79.4-94.8 MEAN CORPUSCULAR HEMOGLOBIN (BEAKER) (test 31.3 pg 25.6-32.2 jfsg=134) MEAN CORPUSCULAR HEMOGLOBIN CONC (BEAKER) (test 32.6 GM/DL 32.2-35.5 vhyh=553) RED CELL DISTRIBUTION WIDTH (BEAKER) (test 16.1 % 11.7-14.4 dsjk=250) PLATELET COUNT (BEAKER) (test eour=521) 140 K/CU MM 150-450 MEAN PLATELET VOLUME (BEAKER) (test trbg=017) 11.0 fL 9.4-12.3 NUCLEATED RED BLOOD CELLS (BEAKER) (test 0 /100 WBC 0-0 tuoy=919) NEUTROPHILS RELATIVE PERCENT (BEAKER) (test 82 % swgz=422) LYMPHOCYTES RELATIVE PERCENT (BEAKER) (test 8 % cext=396) MONOCYTES RELATIVE PERCENT (BEAKER) (test 8 % agrp=748) EOSINOPHILS RELATIVE PERCENT (BEAKER) (test 0 % vhsm=314) BASOPHILS RELATIVE PERCENT (BEAKER) (test 0 % fwlp=625) NEUTROPHILS ABSOLUTE COUNT (BEAKER) (test 12.69 K/ L 1.56-6.13 toey=642) LYMPHOCYTES ABSOLUTE COUNT (BEAKER) (test 1.24 K/ L 1.18-3.74 nvec=038) MONOCYTES ABSOLUTE COUNT (BEAKER) (test 1.21 K/ L 0.24-0.36 dkkk=122) EOSINOPHILS ABSOLUTE COUNT (BEAKER) (test 0.02 K/ L 0.04-0.36 itfa=216) BASOPHILS ABSOLUTE COUNT (BEAKER) (test 0.04 K/ L 0.01-0.08 bihn=085) IMMATURE GRANULOCYTES-RELATIVE PERCENT (BEAKER) 2 % 0-1 (test acbm=2627)
--- NOTE | 2018-10-12 15:17 | EKG ---
Test Date: 2018-10-12 Test Time: 15:10:04 Retirement Consultant: S MEASUREMENT RESULTS: Intervals: Rate: 78 IL: 162 QRSD: 82 QT: 298 QTc: 339 [place]: P: 53 IL: 162 QRS: 55 T: 99 INTERPRETIVE STATEMENTS: Normal sinus rhythm Nonspecific T wave abnormality Abnormal ECG Compared to ECG 10/03/2018 07:07:17 Possible ischemia no longer present T-wave abnormality still present Electronically Signed On 10-12-18 15:16:49 CDT by Jese Stewart
[2018-10-12] MEDS ORDERED: ONDANSETRON 4 MG/2 ML VIAL ONE ×2 (15:28→18:43)
[2018-10-12] MEDS ORDERED: NA CHLORIDE 0.9% 1,000 ML ONE (15:28)
--- NOTE | 2018-10-12 15:43 | RAD REPORT ---
EXAM DESCRIPTION: CT - Abdomen Pelvis Wo Contrast - 10/12/2018 3:18 pm CLINICAL HISTORY: ABD PAIN COMPARISON: Abdomen Pelvis W Contrast dated 10/03/2018; Abdomen Pelvis W Contrast dated 09/24/2018; Abdomen Pelvis W Contrast dated 08/07/2018; Abdomen Pelvis W Contrast dated 04/02/2016; Pelvis jesusita ed 10/11/2018; Abdomen 1 View (KUB) dated 10/06/2018 None. TECHNIQUE: Axial [address] imaging of the abdomen and pelvis was performed without IV contrast. No IV contrast was given because of allergy, abnormal renal function, patient refusal or physician re quest. No oral contrast administered. All CT scans are performed using dose optimization technique as appropriate and may include automated exposure control or mA/KV adjustment according to patient size. FINDINGS: No suspicious findings in the lung bases. The liver, spleen and pancreas show no suspicious findings on non-contrast imaging. Gallbladder is ab sent. No dilatation of the biliary tree. Pneumobilia is present matching prior imaging. No left-sided hydronephrosis or left site calculi. Mild to moderate hydronephrosis of the right co llecting system is present. There is an 8 millimeter stone or cluster of small stones lower pole rodrigo x on the right. A 7 millimeter stone or stone cluster is present at the UPJ. Hydronephrosis extends b eyond this UPJ calculus. In the mid and distal right ureter there is a 5-6 centimeter long segment of the ureter containing numerous small calcifications. The October 03 study showed a large renal pelvic calcification in these are probably stone fragments from lithotripsy. This needs correlation with hi story. No significant adrenal finding. Isodense renal masses and pyelonephritis cannot be excluded in the absence of IV contrast. The urinary bladder is without significant finding. No dilated bowel loops or bowel wall thickening. No free air, free fluid or pneumatosis. No bulky ly mphadenopathy. Calcified mass in the right mid abdomen appears be hernia mesh material and probable o ld hematoma/ seroma. This is a nonacute finding. No bulky lymphadenopathy or mass. No hernia seen. No suspicious bony findings. IMPRESSION: Patient has ueif-hz-koqdssar right-sided hydronephrosis from 2 different causes. There i s a 5-6 centimeter long cluster of stones in stone fragments in the mid to distal right ureter contri buting to hydronephrosis. There is an additional 7 millimeter stone or stone cluster at the right UPJ. Patient had a much larger calcification in the right renal pelvis on the October 03 study. Patient is presumed of undergone lithotripsy fragment Ing this larger stone. Full assessment is limited is the absence of IV contrast.
[2018-10-12 16:02] LABS: Absolute Lymphocytes (CBC) 1.3 K/uL (0.7-4.9); Basophils % 0.3 % (0-1.3); Lymphocytes % 13.3 % (15.3-44.8); RBC Red Blood Cell Count 3.83 M/uL (3.86-4.86)
[2018-10-12 16:18] LABS: Albumin 2.4 g/dL (3.4-5.0); Bilirubin Direct 0.2 mg/dL (0-0.2); Bilirubin Total 0.3 mg/dL (0.2-1.0); Potassium 4.3 mmol/L (3.5-5.1); Protein, Total 6.4 g/dL (6.4-8.2)
--- NOTE | 2018-10-12 17:39 | ER ---
Nurse's Notes [facility] Name: Judy Puri Age: 78 yrs Sex: Female : 1940 Arrival Date: 10/12/2018 Time: 14:37 Bed 16 Private MD: Diagnosis: Hydronephrosis with renal and ureteral calculous obstruction;Ileus, unspecified Presentation: 10/12 14:38 Presenting complaint: EMS states: She has fallen 4 times in the last 48 hours, this jl7 last time she hit her head on the tub, when we picked her up she began vomiting. Care prior to arrival: None. Mechanism of Injury: Fall from standing position. Trauma event details: Injury occurred in the [facility], Injury occurred: at home. Injury occurred: October 12, 2018. 14:38 Acuity: JONATHAN 2 jl7 14:38 Method Of Arrival: EMS: [facility] jl7 14:45 Transition of care: patient was not received from another setting of care. Onset of jl7 symptoms was October 12, 2018. Risk Assessment: Do you want to hurt yourself or someone else? Patient reports no desire to harm self or others. Initial Sepsis Screen: Does the patient meet any 2 criteria? No. Patient's initial sepsis screen is negative. Does the patient have a suspected source of infection? No. Patient's initial sepsis screen is negative. Triage Assessment: 14:49 General: Appears in no apparent distress. uncomfortable, Behavior is calm, cooperative. jl7 Pain: Denies pain. Neuro: Level of Consciousness is awake, alert, obeys commands, Oriented to person, place, time, situation. Cardiovascular: Patient's skin is warm and dry. Respiratory: Airway is patent Respiratory effort is even, unlabored, Respiratory pattern is regular, symmetrical. Derm: Skin is pink, warm \T\ dry. Historical: - Allergies: 14:48 Codeine; jl7 14:48 Propoxyphene HCl; jl7 - Home Meds: 14:48 Aspirin Oral [Active]; atorvastatin Oral [Active]; Celecoxib Oral [Active]; Furosemide jl7 Oral [Active]; gabapentin Oral [Active]; Glipizide Oral [Active]; Hydrocodone-Acetaminophen Oral [Active]; losartan Oral [Active]; Metoprolol Tartrate Oral [Active]; Omeprazole Oral [Active]; pantoprazole Oral [Active]; - PMHx: 14:48 Atrial Fib; Diabetes - NIDDM; Hypertension; Myocardial infarction; jl7 - Immunization history:: Adult Immunizations unknown. - Social history:: Smoking status: unknown. - Immunization history: Last tetanus immunization: unknown. - Ebola Screening: : No symptoms or risks identified at this time. Screenin:38 Abuse screen: Denies threats or abuse. Denies injuries from another. Tuberculosis jl7 screening: No symptoms or risk factors identified. 16:16 Nutritional screening: No deficits noted. Fall Risk Fall in past 12 months (25 points). ph No secondary diagnosis (0 pts). IV access (20 points). Ambulatory Aid- None/Bed Rest/Nurse Assist (0 pts). Gait- Weak (10 pts.). Total Chan Fall Scale indicates High Risk Score (45 or more points). Fall prevention measures have been instituted. Side Rails Up X 2 Placed Close to Nursing Station Frequent Obs/Assessments Occuring As available patient and family educated on Fall Prevention Program and Strategies. Primary Survey: 14:38 NO uncontrolled hemorrhage observed. A: Airway: patent. Breathing/Chest: Respiratory jl7 pattern: regular. Circulation: Skin color: pink. Disability Alert. Exposure/Environment: A warming method has been applied: A warm blanket has been provided to the patient. 18:17 Reassessment Airway Airway Patent Breathing/Chest Respiratory pattern Regular ph Respiratory effort Spontaneous Unlabored. Assessment: 15:12 General: Appears in no apparent distress. comfortable, obese, vomit and feces noted to ph gown. Behavior is cooperative, anxious, fussy. Pain: Complains of pain in abdomen. Neuro: Level of Consciousness is awake, alert, obeys commands, Oriented to person, place, time, situation. Cardiovascular: Capillary refill < 3 seconds in bilateral fingers Patient's skin is warm and dry. Respiratory: Airway is patent Respiratory effort is even, unlabored, Respiratory pattern is regular, symmetrical, Denies shortness of breath. GI: Abdomen is round distended, Reports lower abdominal pain, upper abdominal pain, diarrhea, gaseousness, nausea, vomiting. : No signs and/or symptoms were reported regarding the genitourinary system. Derm: Skin is intact, Skin is pink, warm \T\ dry. Musculoskeletal: Circulation, motion, and sensation intact. Range of motion: intact in all extremities. 16:20 Reassessment: Patient appears in no apparent distress at this time. Patient and/or ph family updated on plan of care and expected duration. Pain level reassessed. Patient is alert, oriented x 3, equal unlabored respirations, skin warm/dry/pink. Pt resting quietly, reports that nausea has improved, VSS, will continue to monitor. 17:30 Reassessment: Patient appears in no apparent distress at this time. Patient and/or ph family updated on plan of care and expected duration. Pain level reassessed. Patient is alert, oriented x 3, equal unlabored respirations, skin warm/dry/pink. Dr Ortiz at bedside to speak w/ pt, pt to be taken to OR. Vital Signs: 14:38 BP 149 / 73; Pulse 78; Resp 16 S; Temp 98.9(O); Pulse Ox 97% on R/A; jl7 15:37 BP 160 / 67; Pulse 83; Resp 16; Temp 99.6(O); Pulse Ox 96% on R/A; mh5 16:30 BP 153 / 68; Pulse 84; Resp 18; Pulse Ox 98% on R/A; ph 18:02 BP 147 / 58; Pulse 81; Resp 18; Temp 99.2(O); Pulse Ox 98% on R/A; mh5 Isaias Coma Score: 14:38 Eye Response: spontaneous(4). Verbal Response: oriented(5). Motor Response: obeys jl7 commands(6). Total: 15. 16:30 Eye Response: spontaneous(4). Verbal Response: oriented(5). Motor Response: obeys ph commands(6). Total: 15. Trauma Score (Adult): 14:38 Eye Response: spontaneous(1); Verbal Response: oriented(1); Motor Response: obeys jl7 commands(2); Systolic BP: > 89 mm Hg(4); Respiratory Rate: 10 to 29 per min(4); Paoli Score: 15; Trauma Score: 12 16:30 Eye Response: spontaneous(1); Verbal Response: oriented(1); Motor Response: obeys ph commands(2); Systolic BP: > 89 mm Hg(4); Respiratory Rate: 10 to 29 per min(4); Isaias Score: 15; Trauma Score: 12 ED Course: 14:37 Patient arrived in ED. ph 14:38 Patient has correct armband on for positive identification. Placed in gown. Bed in low jl7 position. Call light in reach. Side rails up X2. 14:38 Patient maintains SpO2 saturation greater than 95% on room air. Thermoregulation: warm jl7 blanket given to patient. 14:39 Todd Loya MD is Attending Physician. gs 14:39 Triage completed. jl7 14:49 Arm band placed on right wrist. jl7 15:11 Emerald Cline, RN is Primary Nurse. ph 15:13 EKG done, by polytechnic registrar. reviewed by Todd Loya MD. sm3 15:27 CT Abd/Pelvis - Without Contrast In Process Unspecified. EDMS 15:50 Inserted saline lock: 22 gauge in left antecubital area, using aseptic technique. Blood ph collected. 17:36 Martha Calderon MD is Hospitalizing Provider. gs 18:17 No provider procedures requiring assistance completed. Patient admitted, IV remains in ph place. Administered Medications: 15:50 Drug: NS 0.9% 1000 ml Route: IV; Rate: 125 ml/hr; Site: left antecubital; ph 17:19 Follow up: Response: No adverse reaction; IV Status: Order to discontinue infusion jl7 15:50 Drug: Zofran 4 mg Route: IVP; Site: left antecubital; ph 16:00 Follow up: Response: No adverse reaction; Nausea is decreased; Vomiting decreased ph 17:20 Drug: NS 0.9% 1000 ml Route: IV; Rate: 75 ml/hr; Site: left antecubital; jl7 18:14 Follow up: Response: No adverse reaction; IV Status: Infusion continued upon admission ph Intake: 18:20 IV: 700ml (IV Fluid); Total: 700ml. ph Outcome: 17:37 Decision to Hospitalize by Provider. gs 18:18 Admitted to OR accompanied by nurse, family with patient, via stretcher, with chart. ph 18:18 Condition: stable 18:18 Instructed on the need for admit. 18:28 Patient's length of stay was not longer than 2 hours. ph 18:29 Patient left the ED. ph Signatures: Dispatcher [employer] EDCO Emerald Cline RN RN Lili Mckinley [facility] Twyla Tracy RN RN jl7 Todd Loya MD MD Betty Alan 3
--- NOTE | 2018-10-12 17:39 | EDPHYS ---
Physician Documentation [facility] Name: Judy Puri Age: 78 yrs Sex: Female : 1940 Arrival Date: 10/12/2018 Time: 14:37 Bed 16 Private MD: ED Physician Todd Loya HPI: 10/12 17:43 This 78 yrs old Female presents to ER via EMS with complaints of Near Syncope. gs 17:44 The patient has experienced near-syncope, felt faint. Onset: The symptoms/episode gs began/occurred acutely, this morning. Duration: This was a single episode. Context: occurred at home, occurred while the patient was vomiting. Associated injury: The patient did not suffer any apparent associated injury. Associated signs and symptoms: Pertinent positives: abdominal pain, Pertinent negatives: chest pain. Current symptoms: vomiting,diarrhea,ab pain. The patient has experienced similar episodes in the past, a few times. The patient has been recently been admitted at [facility], was discharged last week. Historical: - Allergies: 14:48 Codeine; jl7 14:48 Propoxyphene HCl; jl7 - Home Meds: 14:48 Aspirin Oral [Active]; atorvastatin Oral [Active]; Celecoxib Oral [Active]; Furosemide jl7 Oral [Active]; gabapentin Oral [Active]; Glipizide Oral [Active]; Hydrocodone-Acetaminophen Oral [Active]; losartan Oral [Active]; Metoprolol Tartrate Oral [Active]; Omeprazole Oral [Active]; pantoprazole Oral [Active]; - PMHx: 14:48 Atrial Fib; Diabetes - NIDDM; Hypertension; Myocardial infarction; jl7 - Immunization history:: Adult Immunizations unknown. - Social history:: Smoking status: unknown. - Immunization history: Last tetanus immunization: unknown. - Ebola Screening: : No symptoms or risks identified at this time. ROS: 17:44 All other systems are negative. gs Exam: 17:44 Head/Face: Normocephalic, atraumatic. Eyes: Pupils equal round and reactive to light, gs extra-ocular motions intact. Lids and lashes normal. Conjunctiva and sclera are non-icteric and not injected. Cornea within normal limits. Periorbital areas with no swelling, redness, or edema. ENT: Nares patent. No nasal discharge, no septal abnormalities noted. Tympanic membranes are normal and external auditory canals are clear. Oropharynx with no redness, swelling, or masses, exudates, or evidence of obstruction, uvula midline. Mucous membranes moist. Neck: Trachea midline, no thyromegaly or masses palpated, and no cervical lymphadenopathy. Supple, full range of motion without nuchal rigidity, or vertebral point tenderness. No Meningismus. Chest/axilla: Normal chest wall appearance and motion. Nontender with no deformity. No lesions are appreciated. Cardiovascular: Regular rate and rhythm with a normal S1 and S2. No gallops, murmurs, or rubs. Normal PMI, no JVD. No pulse deficits. Respiratory: Lungs have equal breath sounds bilaterally, clear to auscultation and percussion. No rales, rhonchi or wheezes noted. No increased work of breathing, no retractions or nasal flaring. 17:44 Constitutional: The patient appears uncomfortable. 17:44 Abdomen/GI: Inspection: distension, that is mild, Palpation: moderate abdominal tenderness, in all quadrants. 17:44 Musculoskeletal/extremity: Circulation is intact in all extremities. Edema, 2+ to the left midcalf and right midcalf is noted. Vital Signs: 14:38 BP 149 / 73; Pulse 78; Resp 16 S; Temp 98.9(O); Pulse Ox 97% on R/A; jl7 15:37 BP 160 / 67; Pulse 83; Resp 16; Temp 99.6(O); Pulse Ox 96% on R/A; mh5 16:30 BP 153 / 68; Pulse 84; Resp 18; Pulse Ox 98% on R/A; ph 18:02 BP 147 / 58; Pulse 81; Resp 18; Temp 99.2(O); Pulse Ox 98% on R/A; mh5 [place] Coma Score: 14:38 Eye Response: spontaneous(4). Verbal Response: oriented(5). Motor Response: obeys jl7 commands(6). Total: 15. 16:30 Eye Response: spontaneous(4). Verbal Response: oriented(5). Motor Response: obeys ph commands(6). Total: 15. Trauma Score (Adult): 14:38 Eye Response: spontaneous(1); Verbal Response: oriented(1); Motor Response: obeys jl7 commands(2); Systolic BP: > 89 mm Hg(4); Respiratory Rate: 10 to 29 per min(4); Isaias Score: 15; Trauma Score: 12 16:30 Eye Response: spontaneous(1); Verbal Response: oriented(1); Motor Response: obeys ph commands(2); Systolic BP: > 89 mm Hg(4); Respiratory Rate: 10 to 29 per min(4); [place] Score: 15; Trauma Score: 12 MDM: 14:52 Patient medically screened. gs 17:44 Differential Diagnosis: cardiac arrhythmia, vasovagal episode, stone,sbo. Data gs reviewed: vital signs, nurses notes. Response to treatment: the patient's symptoms have markedly improved after treatment. Physician consultation: Cherie Ortiz MD and will see patient in ED. 10/12 14:58 Order name: Basic Metabolic Panel; Complete Time: 16:19 10/12 14:58 Order name: CBC with Diff; Complete Time: 16:19 10/12 14:58 Order name: Hepatic Function; Complete Time: 16:19 10/12 14:58 Order name: Lipase; Complete Time: 16:19 10/12 14:58 Order name: CT Abd/Pelvis - Without Contrast; Complete Time: 15:52 10/12 14:58 Order name: IV Saline Lock; Complete Time: 16:08 10/12 14:58 Order name: Labs collected and sent; Complete Time: 16:08 10/12 14:58 Order name: EKG; Complete Time: 15:00 10/12 14:58 Order name: EKG - Nurse/Tech; Complete Time: 15:25 10/12 17:45 Order name: CONS Physician Consult [facility] 10/12 17:46 Order name: NPO; Complete Time: 18:14 [facility] 10/12 17:18 Order name: NPO; Complete Time: 17:25 Administered Medications: 15:50 Drug: NS 0.9% 1000 ml Route: IV; Rate: 125 ml/hr; Site: left antecubital; ph 17:19 Follow up: Response: No adverse reaction; IV Status: Order to discontinue infusion jl7 15:50 Drug: Zofran 4 mg Route: IVP; Site: left antecubital; ph 16:00 Follow up: Response: No adverse reaction; Nausea is decreased; Vomiting decreased ph 17:20 Drug: NS 0.9% 1000 ml Route: IV; Rate: 75 ml/hr; Site: left antecubital; jl7 18:14 Follow up: Response: No adverse reaction; IV Status: Infusion continued upon admission ph Disposition: 10/12/18 17:37 Hospitalization ordered by Martha Calderon for Inpatient Admission. Preliminary diagnosis are Hydronephrosis with renal and ureteral calculous obstruction, Ileus, unspecified. - Bed requested for Telemetry/MedSurg (Inpatient). - Status is Inpatient Admission. ph - Condition is Stable. - Problem is new. - Symptoms have improved. UTI on Admission? Yes Signatures: Dispatcher [employer] EDMS Emerald Cline RN RN Twyla Tracy RN RN 7 Todd Loya MD MD Corrections: (The following items were deleted from the chart) 18:29 17:37 Hospitalization Ordered by Martha Calderon MD for Inpatient Admission. Preliminary ph diagnosis is Hydronephrosis with renal and ureteral calculous obstruction; Ileus, unspecified. Bed requested for Telemetry/MedSurg (Inpatient). Status is Inpatient Admission. Condition is Stable. Problem is new. Symptoms have improved. UTI on Admission? Yes.
[2018-10-12] MEDS ORDERED: PROPOFOL 200 MG/20 ML VIAL IV ONE (18:06)
[2018-10-12] MEDS ORDERED: LIDOCAINE 1% MPF 5 ML VIAL ONE (18:06)
[2018-10-12] MEDS ORDERED: EPHEDRINE SULF 50 MG/ML VIAL ONE (18:07)
[2018-10-12] MEDS ORDERED: GENTAMICIN 100 MG/100 ML BAG 100 ML IV ONE (18:19)
[2018-10-12] MEDS ORDERED: CEFEPIME/SWI 1gm 10 ML IV SCH (18:30)
--- NOTE | 2018-10-12 19:14 | RAD REPORT ---
EXAM DESCRIPTION: RAD - Urethrocystogrphy Retrograde - 10/12/2018 7:05 pm FINDINGS: There were 11 portable KUB images obtained during fluoroscopic assisted placement of a rig ht ureteral stent. No suspicious or unexpected finding. Fluoro time was 1 minutes 2 seconds
[2018-10-12 19:51] LABS: Urine Bacteria <20 /HPF (<20)
[2018-10-12 19:52] LABS: Urine Culture Reflex Order NOT NEEDED; Urine Mucus 2+ /HPF (NONE SEEN)
[2018-10-12] MEDS: NA CHLORIDE 0.9% 1,000 ML IV SCH (20:22)
[2018-10-12 22:49] VITALS: BMI 30.5
[2018-10-13] MEDS: NA CHLORIDE 0.9% 1,000 ML IV SCH ×3 (06:16→17:23)
[2018-10-13 06:17] LABS: Albumin 1.9 g/dL (3.4-5.0); Bilirubin Total 0.3 mg/dL (0.2-1.0); Potassium 4.5 mmol/L (3.5-5.1); Protein, Total 5.1 g/dL (6.4-8.2)
[2018-10-13 07:12] LABS: Absolute Lymphocytes (CBC) 1.9 K/uL (0.7-4.9); Basophils % 1.2 % (0-1.3); Hematocrit 32.3 % (36.0-45.0); Lymphocytes % 18.8 % (15.3-44.8); MPV 9.7 fL (7.6-11.3); RBC Red Blood Cell Count 3.44 M/uL (3.86-4.86)
--- NOTE | 2018-10-13 07:24 | CON ---
History Of Present Illness: A 78-year-old brought in by her for having some nausea, vomiting, and suprapubic pain. CT scan was done showing multiple stone fragments in the right lower ureter, fragmented stone in the renal pelvis and in the right lower pole from ESWL last week. We are going to go ahead and plan to place the stent versus ureteroscopy tonight. Home Medications: Aspirin, atorvastatin, __, Lasix, gabapentin, hydrocodone, omega-3, acidophilus, metoprolol, omeprazole, __, glipizide. Past Medical History: Diabetes type 2, non-insulin dependent; chronic pain; hypertension; history of CAD, stent; hyperlipidemia; diabetic neuropathy; hysterectomy, bladder suspension x3; cholecystectomy; heart catheterization, stent; ERCP; history of atrial fibrillation. Family History: Father, heart disease. Brother, heart disease. Social History: Never smoked. No alcohol use. No caffeine use. Resides at home with her . Review of Systems: Otherwise unremarkable as mentioned above. Physical Examination: Vital Signs: Stable. HEENT: Atraumatic and normocephalic. Respiratory: Clear. Cardiovascular: S1, S2. Gastrointestinal: Normal. Some lower suprapubic pain. 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 There is a 7 mm stone in the right UPJ, and there is another stone at the right lower pole that is a fragment from the original stone s/p eswl. Laboratory data from July 12, 2018, white count 9.5, H and H is 11.8 and 36, platelet count 207. Chloride is normal last time. Chemistry from 10/12/2018, pretty normal, BUN 27, creatinine 1.3, estimated GFR 28, which is lower than last week it was in the 60s. Her GFR still cut in half. Assessment: A pleasant lady with status post extracorporeal shock wave lithotripsy, now with Steinstrasse stone. We will go ahead and place a stent for her tonight, possible ureteroscopy an hour later, which should hopefully help her GFR improve, and some of her pain, and to help to dilate the ureter through which the stones can pass. She knows all the general information, alternatives, and risks and wishes to proceed. Patient has been admitted to the medical service of Dr. Calderon. NATE/GUME Voice ID: [id number] Report ID: [id number] MTDD
[2018-10-13] MEDS ORDERED: CEFEPIME 1 GM/VIAL IV SCH (09:00)
--- NOTE | 2018-10-13 10:28 | RAD REPORT ---
EXAM DESCRIPTION: RAD - Abdomen 1 View (KUB) - 10/13/2018 10:16 am CLINICAL HISTORY: check stent and stones Pain COMPARISON: Abdomen 1 View (KUB) dated 10/06/2018; Abdomen 1 View (KUB) dated 10/03/2018; Abdomen 1 Vi ew (KUB) dated 10/03/2018; Abdomen Pelvis Wo Contrast dated 10/12/2018 FINDINGS: The bowel gas pattern is non-obstructive. No evidence of free air or pneumatosis. Right do uble-J stent is in place. Proximal and distal aspects in expected positioning and alignment. Multiple small calcifications are suspected along the course of the stent the level of the right pelvic inlet .
[2018-10-13 11:07] LABS: Blood Morphology Comment NOT SEEN (NOT SEEN); Platelet Estimate ADEQ
[2018-10-13] MEDS: TRAMADOL HCL 50 MG TAB PO PRN ×3 (11:36→23:01)
--- NOTE | 2018-10-13 13:24 | P.HP ---
Certification for Inpatient Patient admitted to: Inpatient With expected LOS: >2 Midnights Patient will require the following post-hospital care: None Practitioner: I am a practitioner with admitting privileges, knowledge of patient current condition, hospital course, and medical plan of care. Services: Services provided to patient in accordance with Admission requirements found in Title 42 Section 412.3 of the Code of Federal Regulations Patient History Date of Service: 10/12/18 Reason for admission: Obstructive uropathy History of Present Illness: This is a 78 y/o with significant Pmhx, who presented to the ED complaining of Right Sided flank pain that has been getting worse. Pt also c/o of having N/V. Was recently admitted to the hospital for similar episode 2 weeks ago and had a ESWL. Pt still however continued to have pain and thus came to the ER. Denies having any Fever, chills or any other associated symptoms Allergies codeine Adverse Reaction (Mild, Verified 10/12/18 20:11) Rash propoxyphene HCl [From Darvon] Adverse Reaction (Verified 10/12/18 20:11) Rash Home Medications: Aspirin 1 tab PO DAILY 10/03/18 Atorvastatin Calcium 1 tab PO DAILY 10/03/18 Cetirizine HCl [Zyrtec] 10 mg PO DAILY 10/03/18 Furosemide 20 mg PO DAILY 10/03/18 Gabapentin 1 tab PO BID 10/03/18 Hydrocodone 5/APAP 325 [[place] 5/325*] 1 tab PO Q6H PRN 10/03/18 Krill/[place]-3/Dha/Epa/Lipids [Krill Oil 350 mg Softgel] 1 cap PO DAILY 10/03/18 L.acidoph,Paracasei, B.lactis [Probiotic] 1 cap PO DAILY 10/03/18 Losartan Potassium 100 mg PO DAILY 10/03/18 Metoprolol Tartrate 1 tab PO BID 10/03/18 Mv-Mn/Folic Acid/Vit [id number] [Alive Once Daily Women 50 Plus] 1 tab PO DAILY 10/03/18 Omeprazole [Prilosec] 40 mg PO DAILY 10/03/18 Sennosides/Docusate Sodium [Senna Laxative Tablet] 2 tab PO BID 10/03/18 glipiZIDE [Glipizide] 1 tab PO BID 10/03/18 ALPRAZolam [Xanax] 0.25 mg PO BID PRN #15 tab 10/07/18 - Past Medical/Surgical History Has patient received pneumonia vaccine in the past: Yes Diabetic: Yes -: HTN -: NIDDM -: CAD with 1 stent placed -: HLD -: CHRONIC PAIN -: ARTHRITIS -: NEUROPATHY -: Hysterectomy -: Bladder suspension x3 -: Cholecystectomy -: Heart catheterization with stent -: ERCP with removal of stone Psychosocial/ Personal History: Patient is . She has no children - Family History Father -: Heart disease Brother -: Heart disease - Social History Smoking Status: Never smoker Alcohol use: No CD- Drugs: No Caffeine use: Yes Place of Residence: Home Review of Systems 10-point ROS is otherwise unremarkable Physical Examination - Vital Signs Temperature: 98.5 F Blood Pressure: 132/87 Pulse: 73 Respirations: 16 Pulse Ox (%): 93 - Physical Exam General: Alert, In no apparent distress HEENT: Atraumatic, PERRLA, Mucous membr. moist/pink, EOMI, Sclerae nonicteric Neck: Supple, 2+ carotid pulse no bruit, No LAD, Without JVD or thyroid abnormality Respiratory: Clear to auscultation bilaterally, Normal air movement Cardiovascular: Regular rate/rhythm, Normal S1 S2 Gastrointestinal: Normal bowel sounds, No tenderness Musculoskeletal: No tenderness Integumentary: No rashes Neurological: Normal gait, Normal speech, Normal strength at 5/5 x4 extr, Normal tone, Normal affect Lymphatics: No axilla or inguinal lymphadenopathy - Studies Laboratory Data (last 24 hrs) 10/12/18 15:50: WBC 9.5, Hgb 11.8 L, Hct 36.0, Plt Count 207 10/12/18 15:50: Sodium 143, Potassium 4.3, BUN 27 H, Creatinine 1.73 H, Glucose 97, Total Bilirubin 0.3, AST 14 L, ALT 12, Alkaline Phosphatase 105, Lipase 127 Assessment and Plan - Problems (Diagnosis) (1) Nephrolithiasis Current Visit: Yes Status: Acute Plan: Right sided 7mmUPJ and several small stones noted with hydronephrosis -urology consulted. appreciated Reccs -IV fluids and IV pain medication at this time -Planned for Lithotripsy with stent placement (2) Obstructive nephropathy Current Visit: Yes Status: Acute Plan: Pt with Elevated BUN/CR most likely 2.2 to Obstructive Nephropathy -IV fluids and Pain mgmt (3) Coronary artery disease Current Visit: No Status: Chronic Qualifiers: Coronary Disease-Associated Artery/Lesion type: [place] artery [place] vs. transplanted heart: [place] heart Associated angina: without angina Qualified Code(s): I25.10 - Atherosclerotic heart disease of [place] coronary artery without angina pectoris (4) Diabetes mellitus Current Visit: No Status: Chronic Qualifiers: Diabetes mellitus type: type 2 Diabetes mellitus retirement insulin use: with termite control service representative use Diabetes mellitus complication status: without complication Qualified Code(s): E11.9 - Type 2 diabetes mellitus without complications; Z79.4 - senior living (current) use of insulin (5) Hypertension Current Visit: No Status: Chronic Qualifiers: Hypertension type: essential hypertension Qualified Code(s): I10 - Essential (primary) hypertension - Plan Admit the patient for Further care. Discharge Plan: Home Plan to discharge in: Greater than 2 days - Advance Directives Does patient have a Living Will: No Does patient have a Durable POA for Healthcare: No - Code Status/Comfort Care Code Status Assessed: Yes Critical Care: No
--- NOTE | 2018-10-13 13:41 | P.PN ---
Subjective Date of Service: 10/13/18 Chief Complaint: Obstructive uropathy Subjective: No new changes, Tolerating diet, Improving, Doing well Review of Systems 10-point ROS is otherwise unremarkable Physical Examination - Vital Signs Temperature: 98.5 F Blood Pressure: 132/87 Pulse: 73 Respirations: 16 Pulse Ox (%): 93 - Physical Exam General: Alert, In no apparent distress HEENT: Atraumatic, PERRLA, EOMI Neck: Supple, JVD not distended Respiratory: Clear to auscultation bilaterally, Normal air movement Cardiovascular: Regular rate/rhythm, Normal S1 S2 Gastrointestinal: Normal bowel sounds, No tenderness Musculoskeletal: No tenderness Integumentary: No rashes Neurological: Normal speech, Normal tone, Normal affect Lymphatics: No axilla or inguinal lymphadenopathy - Studies Laboratory Data (last 24 hrs) 10/12/18 15:50: WBC 9.5, Hgb 11.8 L, Hct 36.0, Plt Count 207 10/12/18 15:50: Sodium 143, Potassium 4.3, BUN 27 H, Creatinine 1.73 H, Glucose 97, Total Bilirubin 0.3, AST 14 L, ALT 12, Alkaline Phosphatase 105, Lipase 127 Medications List Reviewed: Yes Assessment And Plan - Current Problems (Diagnosis) (1) Nephrolithiasis Current Visit: Yes Status: Acute Plan: Right sided 7mmUPJ and several small stones noted with hydronephrosis -urology consulted. appreciated Reccs -S/p Lithotripsy POD # 1 -IV fluids and IV antibiotics (2) Obstructive nephropathy Current Visit: Yes Status: Acute Plan: Pt with Elevated BUN/CR most likely 2.2 to Obstructive Nephropathy -BUN/CR improving today -IV fluids at this time. (3) Coronary artery disease Current Visit: No Status: Chronic Qualifiers: Coronary Disease-Associated Artery/Lesion type: [place] artery [place] vs. transplanted heart: [place] heart Associated angina: without angina Qualified Code(s): I25.10 - Atherosclerotic heart disease of [place] coronary artery without angina pectoris (4) Diabetes mellitus Current Visit: No Status: Chronic Qualifiers: Diabetes mellitus type: type 2 Diabetes mellitus fci insulin use: with fci use Diabetes mellitus complication status: without complication Qualified Code(s): E11.9 - Type 2 diabetes mellitus without complications; Z79.4 - termite treater helper (current) use of insulin (5) Hypertension Current Visit: No Status: Chronic Qualifiers: Hypertension type: essential hypertension Qualified Code(s): I10 - Essential (primary) hypertension - Plan Admit the patient for Further care.
[2018-10-13 18:31] LABS: Urine Appearance CLOUDY; Urine Bilirubin NEGATIVE (NEG); Urine Blood 3+ (NEG); Urine Color YELLOW; Urine Glucose NEGATIVE (NEG); Urine Protein 1+ (NEG); Urine Urobilinogen 0.2 mg/dL (0.2-1.0)
--- NOTE | 2018-10-13 19:02 | PN ---
Subjective: Patient has a slight abdominal pain today. She is lying in bed, not feeling quite herse lf yet. Webb catheter is draining clear urine. She is having no more diarrhea. Objective: Vital Signs: 98.5, 73, 16, 132/87, pulse ox 93% on room air. Laboratory Data: She had a KUB done showing stones along the ureter in the right lower pelvis. Assessment And Plan: Her stent was pretty hard to get in yesterday. I think we will need to leave i t in at least 1 week to dilate the ureter and go back with ureteroscopy and laser to remove the rest of the stones. We will have the medical physicians decide when is safe to send her home. NATE/GUME Voice ID: [id number] Report ID: [id number]
[2018-10-13] MEDS: DOCUSATE NA/SENNA CONC 1 TAB PO SCH (20:08)
[2018-10-13] MEDS: GABAPENTIN 100 MG CAP PO SCH (20:08)
[2018-10-13] MEDS: METOPROLOL TAR 50 MG TAB PO SCH (20:08)
[2018-10-13 20:20] LABS: Urine Microscopic Reflex ORDER UMIC
[2018-10-13] MEDS ORDERED: CEFTRIAXONE/SWI 1gm 1 GM/10 ML SYR IV SCH (21:00)
[2018-10-13] MEDS ORDERED: ATORVASTATIN 40 MG TAB PO SCH (21:00)
[2018-10-13 21:07] LABS: Urine Bacteria 20-50 /HPF (<20); Urine Culture Reflex Order REFLEXED; Urine Mucus 2+ /HPF (NONE SEEN); Urine RBC >50 /HPF (NONE SEEN)
[2018-10-13] MEDS ORDERED: HYDROMORPHONE HCL 1 MG/ML INJ IV ONE (21:31)
[2018-10-14 00:53] VITALS: O2SAT 94
[2018-10-14 05:54] LABS: Absolute Lymphocytes (CBC) 1.6 K/uL (0.7-4.9); Hematocrit 32.3 % (36.0-45.0); Lymphocytes % 20.8 % (15.3-44.8); MPV 9.1 fL (7.6-11.3); RBC Red Blood Cell Count 3.43 M/uL (3.86-4.86)
[2018-10-14 06:13] LABS: Albumin 2.1 g/dL (3.4-5.0); Bilirubin Total 0.3 mg/dL (0.2-1.0); Potassium 4.4 mmol/L (3.5-5.1); Protein, Total 5.6 g/dL (6.4-8.2)
[2018-10-14] MEDS ORDERED: PANTOPRAZOLE 40MG TABLET PO SCH (06:30)
[2018-10-14] MEDS: TRAMADOL HCL 50 MG TAB PO PRN (06:38)
[2018-10-14] MEDS: NA CHLORIDE 0.9% 1,000 ML IV SCH (06:39)
[2018-10-14] MEDS: DOCUSATE NA/SENNA CONC 1 TAB PO SCH (07:59)
[2018-10-14] MEDS: GABAPENTIN 100 MG CAP PO SCH (07:59)
[2018-10-14] MEDS: METOPROLOL TAR 50 MG TAB PO SCH (08:00)
[2018-10-14] MEDS ORDERED: ASPIRIN 81 MG CHEWABLE TABLET PO SCH (09:00)
[2018-10-14] MEDS ORDERED: LOSARTAN POTASSIUM 50 MG TABLET PO SCH (09:00)
--- NOTE | 2018-10-14 11:18 | P.SSS ---
Patient History Date of Service: 10/14/18 Reason for admission: Obstructive uropathy History of Present Illness: This is a 78 y/o with significant Pmhx, who presented to the ED complaining of Right Sided flank pain that has been getting worse. Pt also c/o of having N/V. Was recently admitted to the hospital for similar episode 2 weeks ago and had a ESWL. Pt still however continued to have pain and thus came to the ER. Denies having any Fever, chills or any other associated symptoms Allergies codeine Adverse Reaction (Mild, Verified 10/12/18 20:11) Rash propoxyphene HCl [From Darvon] Adverse Reaction (Verified 10/12/18 20:11) Rash Home Medications: Aspirin 1 tab PO DAILY 10/03/18 Atorvastatin Calcium 1 tab PO DAILY 10/03/18 Cetirizine HCl [Zyrtec] 10 mg PO DAILY 10/03/18 Furosemide 20 mg PO DAILY 10/03/18 Gabapentin 1 tab PO BID 10/03/18 Hydrocodone 5/APAP 325 [[place] 5/325*] 1 tab PO Q6H PRN 10/03/18 Krill/[place]-3/Dha/Epa/Lipids [Krill Oil 350 mg Softgel] 1 cap PO DAILY 10/03/18 L.acidoph,Paracasei, B.lactis [Probiotic] 1 cap PO DAILY 10/03/18 Losartan Potassium 100 mg PO DAILY 10/03/18 Metoprolol Tartrate 1 tab PO BID 10/03/18 Mv-Mn/Folic Acid/Vit [id number] [Alive Once Daily Women 50 Plus] 1 tab PO DAILY 10/03/18 Omeprazole [Prilosec] 40 mg PO DAILY 10/03/18 Sennosides/Docusate Sodium [Senna Laxative Tablet] 2 tab PO BID 10/03/18 glipiZIDE [Glipizide] 1 tab PO BID 10/03/18 ALPRAZolam [Xanax*] 0.25 mg PO BID PRN #15 tab 10/07/18 - Past Medical/Surgical History Has patient received pneumonia vaccine in the past: Yes Diabetic: Yes -: HTN -: NIDDM -: CAD with 1 stent placed -: HLD -: CHRONIC PAIN -: ARTHRITIS -: NEUROPATHY -: Hysterectomy -: Bladder suspension x3 -: Cholecystectomy -: Heart catheterization with stent -: ERCP with removal of stone Psychosocial/ Personal History: Patient is . She has no children - Family History Father -: Heart disease Brother -: Heart disease - Social History Smoking Status: Never smoker Alcohol use: No CD- Drugs: No Caffeine use: Yes Place of Residence: Home Review of Systems 10-point ROS is otherwise unremarkable Physical Examination - Vital Signs Temperature: 97.6 F Blood Pressure: 149/63 Pulse: 49 Respirations: 14 Pulse Ox (%): 94 - Physical Exam General: Alert, In no apparent distress HEENT: Atraumatic, PERRLA, Mucous membr. moist/pink, EOMI, Sclerae nonicteric Neck: Supple, 2+ carotid pulse no bruit, No LAD, Without JVD or thyroid abnormality Respiratory: Clear to auscultation bilaterally, Normal air movement Cardiovascular: Regular rate/rhythm, Normal S1 S2 Gastrointestinal: Normal bowel sounds, No tenderness Musculoskeletal: No tenderness Integumentary: No rashes Neurological: Normal gait, Normal speech, Normal strength at 5/5 x4 extr, Normal tone, Normal affect Lymphatics: No axilla or inguinal lymphadenopathy - Diagnosis (Problem(s)) (1) Nephrolithiasis Current Visit: Yes Status: Acute Plan: Right sided 7mmUPJ and several small stones noted with hydronephrosis -urology consulted. appreciated Reccs -S/p Lithotripsy POD # 2 -patient did well overall and thus will be discharged home today (2) Obstructive nephropathy Current Visit: Yes Status: Acute Plan: Pt with Elevated BUN/CR most likely 2.2 to Obstructive Nephropathy. Resolved completely -BUN/CR back to baseline (3) Coronary artery disease Current Visit: No Status: Chronic Qualifiers: Coronary Disease-Associated Artery/Lesion type: [place] artery [place] vs. transplanted heart: [place] heart Associated angina: without angina Qualified Code(s): I25.10 - Atherosclerotic heart disease of [place] coronary artery without angina pectoris (4) Diabetes mellitus Current Visit: No Status: Chronic Qualifiers: Diabetes mellitus type: type 2 Diabetes mellitus mcc insulin use: with medical terminologist use Diabetes mellitus complication status: without complication Qualified Code(s): E11.9 - Type 2 diabetes mellitus without complications; Z79.4 - medical terminologist (current) use of insulin (5) Hypertension Current Visit: No Status: Chronic Qualifiers: Hypertension type: essential hypertension Qualified Code(s): I10 - Essential (primary) hypertension Treatment Summary: Marked improvement in her symptoms after lithotripsy and stent placement. Obstructive uropathy resolved completely. Will discharge patient home today. Have follow up appointment with Dr. Ortiz. Will follow up with cultures in case patient needs to have PO antibiotics set up outpatient. - Disposition Disposition: ROUTINE DISCHARGE Condition: GOOD Diet: Regular Activity: Ad christina
[2018-10-14 12:27] VITALS: BP 163/73; TEMP 97.9
--- NOTE | 2018-10-14 14:13 | PN ---
Subjective: Patient is feeling well. No pain. Webb catheter has been removed. Patient is ready f or discharge. She will be sent to home with Keflex 500 mg once a day for prophylaxis, #14. She is t o follow up next week in the office for preop for right ureteroscopy, laser lithotripsy, stone extrac tion the following week. NATE/GUME Voice ID: [id number] Report ID: [id number]
== END 2018-10-14 13:19 | disposition home health service (06) ==
LOC: ER 14:33 → INTOOBSV 17:44 → ERHOLD 17:44 → 2ND 18:44
PROVIDERS: ADMIT Family Medicine; ATTEND Family Medicine
PROC: 0TP98DZ Removal of Intraluminal Device from Ureter, Via Natural or Artificial Opening Endoscopic (ICD-10-PCS; 2018-10-12)
PROC: 0T768DZ Dilation of Right Ureter with Intraluminal Device, Via Natural or Artificial Opening Endoscopic (ICD-10-PCS; principal; 2018-10-12 18:30)
DX: N13.2 Hydronephrosis with renal and ureteral calculous obstruction (principal); N13.8 Other obstructive and reflux uropathy; I25.10 Atherosclerotic heart disease of native coronary artery without angina pectoris; I10 Essential (primary) hypertension; E11.9 Type 2 diabetes mellitus without complications; Z79.4 Long term (current) use of insulin; Z88.6 Allergy status to analgesic agent; Z88.8 Allergy status to other drugs, medicaments and biological substances; Z95.5 Presence of coronary angioplasty implant and graft
CPT/HCPCS: 52332; 96361; 93005; 87088; 85025 ×3; 80048; 36415 ×2; 82962 ×7; 80076; 81015; 83690; 80053 ×2; 74176; 74018; 74450; 51610; 97116 ×2; 97161; 97530 ×2; 96374; 99285; J2704; J1170; J1580; J0696 ×2; J0692; J7030 ×5; J2405 ×2; Q9967; G0378 ×2; 81003; 87086

== ENCOUNTER 2018-10-15 18:46 | Emergency (ER) | payer OTHER ==
--- OUTSIDE RECORDS SUMMARY | 2018-10-15 18:49 | XMS REPORT | Clinical Summary ---
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[facility]); Severe muscle deconditioning; Atrial fibrillation with RVR ([facility]) 08/10/2018 Travel 08/10/2018 Telephone Internal Medicine Idris Joseph Abdominal Pain MD [place] 08/08/2018 Telephone Internal Medicine Kassy Jurado MD 08/07/2018 Telephone Internal Medicine Idris Joseph Abdominal Pain MD [place] after 10/14/2017 Immunizations Name Dates Previously Given Next Due [...] Not on file Implants Implanted Type Area Patient Insurance Clerk Device Shelf Model / Identifier Expiration Serial / Date Lot Device Clsr Angio-Seal Vip 6fr [id number] - [id number] Cardiovascular N/A: Groin [facility] QUANG 11/16/2016 [id number] / Implanted: Qty: 1 on 03/21/2016 by Miguel Ángel Chaudhry MD MED: CARDIAC / SURG [id number] Synergy Stents-Coronary N/A: [place] 01/15/2017 [id number] / Implanted: Qty: 1 on 03/21/2016 by Miguel Ángel Chaudhry MD Coronary [employer]ENT[employer] / [id number] Procedures Procedure Name Priority Date/Time Associated Comments [...] procedure are in the results section. after 10/14/2017 Results RHYTHM STRIP - SCAN (08/19/2018 11:40 AM CDT)Only the most recent of2 resultswithin the time period is included. Narrative Performed At EKG-SCANNED (08/19/2018 11:40 AM CDT) Narrative Performed At US Renal with Doppler (08/18/2018 4:03 PM CDT) Specimen Narrative Performed At FINAL REPORT [facility] Renal ultrasound and Duplex Doppler ultrasound of [...] MD Report Verified Date/Time:08/18/2018 16:58:13 Reading Location: [address] Radiology Reading Room Procedure Note Interface, [...] Report Verified Date/Time: 08/18/2018 16:58:13 Reading Location: [address] Radiology Reading Room Performing Organization Address City/State/Zipcode Phone Number [facility] POC-Glucose meter (08/18/2018 7:41 AM CDT)Only the most recent of29 resultswithin the time period is included. POC-Glucose Meter 141 (H)Comment: TESTED AT 70 - 110 mg/dL [facility] [address] [facility] [address] Specimen Blood Performing Organization Address City/[facility]/Zipcode Phone Number [address] [address] [place] CBC (Hemogram only) (08/18/2018 5:01 AM CDT)Only the most recent of7 resultswithin the time period is included. WBC 11.7 (H) 3.5 - 10.5 K/L [facility] RBC 3.29 (L) 3.93 - 5.22 M/L [facility] Hemoglobin 10.4 (L) 11.2 - 15.7 GM/DL [facility] Hematocrit 31.8 (L) 34.1 - 44.9 % [facility] MCV 96.7 (H) 79.4 - 94.8 fL [facility] MCH 31.6 25.6 - 32.2 pg [facility] MCHC 32.7 32.2 - 35.5 GM/DL [facility] RDW 16.6 (H) 11.7 - 14.4 % [facility] Platelets 175 150 - 450 K/CU MM [facility] MPV 11.4 9.4 - 12.3 fL [facility] nRBC 0 0 - 0 /100 WBC [facility] Specimen Blood Performing Organization Address City/[facility]/Zipcode Phone Number [address] [address] CENTER Magnesium (08/18/2018 5:01 AM CDT)Only the most recent of8 resultswithin the time period is included. Magnesium 1.9 1.6 - 2.6 mg/dL [facility] Specimen Blood Performing Organization Address City/[facility]/Zipcode Phone Number [facility] [address] [address] [place] Hepatic function panel (08/18/2018 5:01 AM CDT)Only the most recent of8 resultswithin the time period is included. Protein, Total 5.4 (L) 6.0 - 8.3 gm/dL [facility] Albumin 2.9 (L) 3.5 - 5.0 g/dL [facility] Total Bilirubin 0.4 0.2 - 1.2 mg/dL [facility] Bilirubin, Direct 0.2 0.1 - 0.5 mg/dL [facility] Alkaline Phosphatase 73 40 - 150 U/L [facility] AST 20 5 - 34 U/L [facility] ALT 17 6 - 55 U/L [facility] Specimen Blood Performing Organization Address City/State/Zipcofl Phone Number [address] [address] [phone] [place] Basic Metabolic Panel (08/18/2018 5:01 AM CDT)Only the most recent of8 resultswithin the time period is included. Sodium 134 (L) 136 - 145 meq/L [facility] Potassium 4.2 3.5 - 5.1 meq/L [facility] Chloride 103 98 - 107 meq/L [facility] CO2 28 22 - 29 meq/L [facility] BUN 12 7 - 21 mg/dL [facility] Creatinine 0.74 0.57 - 1.25 mg/dL [facility] Glucose 124 (H) 70 - 105 mg/dL [facility] Calcium 9.9 8.4 - 10.2 mg/dL [facility] EGFR 76Comment: ESTIMATED GFR IS mL/min/1.73 sq m [facility] NOT ACCURATE [facility] CLEARANCE IN PREDICTING GLOMERULAR FILTRATION RATE. ESTIMATED GFR IS NOT APPLICABLE FOR DIALYSIS PATIENTS. Specimen Blood Performing Organization Address City/State/Zipcode Phone Number [facility] [address] [place] [address] CENTER [place] myocardial perfusion PET (rest and stress) (08/17/2018 2:17 PM CDT) Specimen Narrative Performed At FINAL REPORT [facility] PROCEDURE: MYOCARDIAL PERFUSION PET IMAGING (Rest/Stress) CPT CODE: 13027 INDICATION: Define extent of known CAD, chest [...] MD Report Verified Date/Time:08/17/2018 15:22:38 Reading Location: [address] Reading Room Procedure Note Interface, External Ris In - 08/17/2018 3:24 PM CDT FINAL REPORT PROCEDURE: MYOCARDIAL PERFUSION PET IMAGING (Rest/Stress) CPT CODE: 98981 INDICATION: Define extent of known CAD, chest [...] Report Verified Date/Time: 08/17/2018 15:22:38 Reading Location: [address] Reading Room Performing Organization Address City/State/Zipcode [...] 2:32:36 PM Confirmed by MD TEE JORGE ([id number]) on 09/24/2018 2:05:23 PM Procedure Note Interface, [...] 2:32:36 PM Confirmed by MD TEE JORGE ([id number]) on 09/24/2018 2:05:23 PM Performing Organization Address City/State/Zipcode Phone Number GE MUSE CBC with platelet count + automated diff (08/16/2018 12:56 PM CDT)Only the most recent of2 resultswithin the time period is included. WBC 12.9 (H) 3.5 - 10.5 K/L [facility] RBC 3.74 (L) 3.93 - 5.22 M/L [facility] Hemoglobin 11.6 11.2 - 15.7 GM/DL [facility] Hematocrit 35.0 34.1 - 44.9 % [facility] MCV 93.6 79.4 - 94.8 fL [facility] MCH 31.0 25.6 - 32.2 pg [facility] MCHC 33.1 32.2 - 35.5 GM/DL [facility] RDW 16.0 (H) 11.7 - 14.4 % [facility] Platelets 165 150 - 450 K/CU MM [facility] MPV 10.1 9.4 - 12.3 fL [facility] nRBC 0 0 - 0 /100 WBC [facility] % Neutros 84 % [facility] % Lymphs 7 % [facility] % Monos 7 % [facility] % Eos 2 % [facility] % Baso 0 % [facility] # Neutros 10.89 (H) 1.56 - 6.13 K/L [facility] # Lymphs 0.90 (L) 1.18 - 3.74 K/L [facility] # Monos 0.84 (H) 0.24 - 0.36 K/L [facility] # Eos 0.20 0.04 - 0.36 K/L [facility] # Baso 0.05 0.01 - 0.08 K/L [facility] Immature 1 0 - 1 % [facility] Granulocytes-[facility] CENTER Specimen Blood Performing Organization Address City/State/Zipcode Phone Number [facility] [address] [place] [address] CENTER Comprehensive metabolic panel (08/16/2018 12:56 PM CDT) Protein, Total 5.4 (L) 6.0 - 8.3 gm/dL [facility] Albumin 2.9 (L) 3.5 - 5.0 g/dL [facility] Alkaline Phosphatase 86 40 - 150 U/L [facility] Total Bilirubin 0.4 0.2 - 1.2 mg/dL [facility] Sodium 135 (L) 136 - 145 meq/L [facility] Potassium 3.7 3.5 - 5.1 meq/L [facility] Chloride 102 98 - 107 meq/L [facility] CO2 28 22 - 29 meq/L [facility] BUN 10 7 - 21 mg/dL [facility] Creatinine 0.83 0.57 - 1.25 mg/dL [facility] Glucose 150 (H) 70 - 105 mg/dL [facility] Calcium 10.0 8.4 - 10.2 mg/dL [facility] AST 25 5 - 34 U/L [facility] ALT 23 6 - 55 U/L [facility] EGFR 66Comment: ESTIMATED GFR mL/min/1.[address] [facility] IS NOT ACCURATE [facility] CREATININE CLEARANCE IN PREDICTING GLOMERULAR FILTRATION RATE. ESTIMATED GFR IS NOT APPLICABLE FOR DIALYSIS PATIENTS. Specimen Blood Performing Organization Address City/State/Zipcode Phone Number [facility] [address] [place] [address] CENTER REPORT OF PROCEDURE - ENDOSCOPY URL (08/15/2018 5:30 PM CDT) Narrative Performed At [place] ERCP (08/15/2018 4:55 PM CDT) Specimen Narrative Performed At FINAL REPORT [facility] Fluoroscopy, less than 1 hour History:ERCP Comparison: none Findings: Fluoroscopic assistance was provided during ERCP.Fluoroscopic images taken were interpreted by the referring clinician.Please see separate procedure note for full details. Total Fluoroscopy time: 79.2 seconds Number of fluoroscopic images obtained: Four Impression: Fluoroscopy assistance as described above. Signed: Enio Ley MD Report Verified Date/Time:08/15/2018 17:37:26 Reading Location: [facility] C0X Ortho Consult Reading Room Procedure [...] Report Verified Date/Time: 08/15/2018 17:37:26 Reading Location: [facility] C013X Ortho Consult Reading Room Performing Organization Address City/State/Zipcode Phone Number GE RIS Tissue Exam (08/15/2018 4:52 PM CDT) Case Report Surgical Pathology Report Case: [id number] [facility] Authorizing Provider:Roddy Bernardected: 08/15/[address] [place] [address] Ordering Location: [address] Received: 08/17/2018 0800 Service Pathologist: Joanne Gu MD Specimens: A) - Duodenal, ULCERS BX B) - Biopsy, Gastric, BX DIAGNOSIS This final report is issued to give the result of immunohistochemical study for Helicobacter pylori on specimen B: [facility] A. DUODENUM, ULCERS, ENDOSCOPIC BIOPSY: [...] MALIGNANCY NOTED Signing Pathologist Direct Phone Line: [phone] CPT Code(s) 06920 X 2; 72418; 07571 [facility] CLINICAL HISTORY Common bile duct stones [facility] SPECIMEN SOURCE A. Duodenal ulcers biopsy; B. [facility] Biopsy, gastric biopsy [facility] GROSS DESCRIPTION The case is received in two parts both labeled with the patient's name, Judy Calhoun, date of 1940 and accession number [id number] which corresponds to accompanying requisition page labeled with the same name and accession number. [facility] Part A is received in formalin labeled [...] in cassette B1. RP/pl MICROSCOPIC DESCRIPTION PERFORMED [facility] SPECIAL STUDIES The interpretation of this case included the use of immunohistochemistry or special stains. [facility] WARTHIN-STARRY; HELICOBACTER PYLORI [facility] Control Slides Examined: In-house known positive controls were evaluated along with the test tissue. These control slides run alongside of the patients sample show appropriate staining. Internal posit emily and negative controls when available are evaluated Immunohistochemistry technical testing was performed at [facility], Pathology Laboratory where it was developed [...] (specimen) Performing Organization Address City/State/Zipcode Phone Number [place] [phone] [place] [address] [phone] brain without IV contrast (08/12/2018 11:55 AM CDT) Specimen Narrative Performed At FINAL REPORT [facility] CT, BRAIN, WITHOUT CONTRAST CLINICAL INDICATION:Confusion/delirium, altered [...] MD Report Verified Date/Time:08/12/2018 12:57:37 Reading Location: [facility] Reading Room Procedure Note Interface, External [...] Report Verified Date/Time: 08/12/2018 12:57:37 Reading Location: [facility] Radiology Reading Room Performing Organization Address City/State/Zipcode Phone Number [facility] CT abdomen/pelvis without & with IV contrast (08/12/2018 11:55 AM CDT) Specimen Narrative Performed At FINAL REPORT [facility] CT abdomen and pelvis without and [...] effusions, right greater than left. Signed: Enio Lye MD Report Verified Date/Time:08/12/2018 13:32:12 Reading Location: [facility] Diagnostic Imaging Reading Room - [place] [address] Procedure Note Interface, External Ris In - [...] Verified Date/Time: 08/12/2018 13:32:12 Reading Location: [facility] Diagnostic Imaging Reading Room - [place] [address] Performing Organization Address City/State/Zipcode Phone Number RIS Lactic acid, venous (08/12/2018 4:36 AM CDT)Only the most recent of2 resultswithin the time period is included. Lactate, Venous 0.9Comment: Specimen 0.5 - 2.2 mmol/L [facility] slightly hemolyzed [facility] CENTER Specimen Blood Performing Organization Address City/[facility]/Zipcode Phone Number [address] [address] CENTER Folate, RBC (08/12/2018 4:36 AM CDT) Folate, Rbc >1000 >280 ng/mL RBC [facility] Specimen Blood Narrative Performed At Performing Lab [facility] EZ [facility] [address] [place] [address] Jerica Cooney MD, PhD, JACKIE Performing Organization Address City/[facility] Phone Number [facility], [place] [address] INCORPORATED [address] [facility] Vitamin B12 (08/12/2018 4:35 AM CDT) Vitamin B12 1,063 (H) 213 - 816 pg/mL [facility] Specimen Blood Performing Organization Address [facility] Phone Number [address] [address] CENTER Troponin I (08/12/2018 12:51 AM CDT)Only the most recent of3 resultswithin the time period is included. Troponin I 0.02 0.00 - 0.03 ng/mL [facility] Specimen Blood Narrative Performed At Troponin I (TnI) levels must be interpreted [facility] in the context of the presenting symptoms [...] disease, and persistent tachyarrhythmia. Performing Organization Address [facility] Phone Number [address] [address] [place] ECHOCARDIOGRAM REPORT - SCAN (08/11/2018 9:11 PM CDT) Narrative Performed At Procalcitonin (08/11/2018 8:46 PM CDT) Procalcitonin <0.05 <0.05 ng/mL [facility] Specimen Blood Narrative Performed At SEPSIS RISK (ng/mL) [facility] Low:0.05-0.50 Intermediate: 0.51-2.00 High: >=2.01 Performing Organization Address [facility] Cent[facility]ode Phone Number [place] [phone] [place] [address] CENTER ECG 12 lead (08/11/2018 3:42 PM CDT)Only the most recent of2 resultswithin the time period is included. Specimen Narrative Performed At Ventricular Rate 71 BPM [facility] Atrial Rate 71 BPM P-R Interval 140 ms QRS Duration 78 ms Q-T Interval 326 ms QTC Calculation(Bazett) 354 ms P Ven[place] 1 degrees R Ven[place] 31 degrees T [place] 124 degrees Normal sinus rhythm Nonspecific ST [...] 326 ms QTC Calculation(Bazett) 354 ms P [place] 1 degrees R [place] 31 degrees T [place] 124 degrees Normal sinus rhythm Nonspecific ST and T wave abnormality Abnormal ECG When compared with ECG of 10-AUG-2018 16:46, No significant change was found Confirmed by Nicole OROZCO MICHAEL ([id number]) on 08/12/2018 8:00:23 AM Performing Organization Address [facility] Phone Number [employer] XR abdomen / KUB 1 view (08/11/2018 10:50 AM CDT) Specimen Narrative Performed At FINAL REPORT [facility] CLINICAL HISTORY: abdominal pain TECHNIQUE: Supine abdomen COMPARISON: CT 03/21/2016 IMPRESSION: The bowel gas pattern is nonspecific. Free air and air-fluid levels are not seen but cannot be definitively excluded on the supine view. Right upper quadrant surgical clips are again seen. Right lower abdominal hernia repair mesh is again seen. Signed: Ken Bunn MD Report Verified Date/Time:08/11/2018 11:42:12 Reading Location: [facility] Radiology Reading Room Procedure Note Interface, External [...] Report Verified Date/Time: 08/11/2018 11:42:12 Reading Location: [facility] Radiology Reading Room Performing Organization Address City/[facility] Phone Number [facility] POCT-HEMATOCRIT (08/11/2018 9:36 AM CDT) POC-Hematocrit 34 (L)Comment: TESTED AT 36 - 45 % [address] [address] Specimen Blood Performing Organization Address [facility] Phone Number [address] [phone] [place] POCT-HEMOGLOBIN (08/11/2018 9:36 AM CDT) POC-Hemoglobin 11.6 (L)Comment: TESTED AT 12.0 - 15.0 g/dL [address] [address]TBLXCT AT [address] [address] Specimen Blood Performing Organization Address [facility] Phone Number [address] [phone] [place] POCT-GLUCOSE (08/11/2018 9:36 AM CDT) POC-Glucose 165 (H)Comment: TESTED AT 70 - 110 mg/dL [address] [address] Specimen Blood Performing Organization Address [facility] Phone Number [address] [phone] CENTER POC-Sodium (08/11/2018 9:36 AM CDT) POC-Sodium 142Comment: TESTED AT [facility] 135 - 148 meq/L [address] [address] Specimen Blood Performing Organization Address City/[facility]/Zipcode Phone Number [address] [address] [place] POC-Potassium (08/11/2018 9:36 AM CDT) POC-Potassium 3.6Comment: TESTED AT [facility] 3.6 - 5.5 meq/L [address] [address] Specimen Blood Performing Organization Address City/[facility]/Zipcode Phone Number [address] [address] [phone] [place] POC-Calcium ionized (08/11/2018 9:36 AM CDT) POC-Calcium Ionized 1.50 (H)Comment: 1.12 - 1.27 mmol/L [facility] TESTED AT [address] [address] Specimen Blood Performing Organization Address City/[facility] Phone Number [address] [address] [phone] [place] POC-Blood gases, venous (08/11/2018 9:36 AM CDT) Temp. Celsius-POC 36.9 [facility] FIO2-POC 28Comment: TESTED AT [address] [address] pH, Venous-POC 7.344 7.320 - 7.420 [facility] PCO2, Venous-POC 48.8 41.0 - 51.0 mm Hg [facility] PO2, Venous-POC 36.0 25.0 - 40.0 mm Hg [facility] SO2, Venous-POC 66.0 40.0 - 70.0 % [facility] HCO3, Venous-POC 26.6 21.0 - 29.0 meq/L [facility] BE, Venous-POC 1.0 -2.0 - 3.0 meq/L [facility] Specimen Blood Performing Organization Address City/[facility]/Zipcode Phone Number [address] [phone] [place] POC-Lactic Acid, Venous (08/11/2018 9:32 AM CDT) POC-Lactic Acid, Venous 0.9Comment: TESTED AT 0.9 - 1.7 mmol/L [address] [address] Specimen Blood Performing Organization Address [facility] Centercode Phone Number [address] [address] [place] Urinalysis w/Microscopic + Reflex to Culture (08/11/2018 7:48 AM CDT) Color, UA Yellow [facility] Clarity, UA Clear [facility] Specific [place], UA 1.012 1.001 - 1.035 [facility] pH, UA 6.0 5.0 - 8.0 [facility] Protein, UA 10 mg/dL (A) Negative [facility] Glucose, UA 50 mg/dL (A) Negative [facility] Ketones, UA 20 mg/dL (A) Negative [facility] Bilirubin, UA Negative Negative [facility] Blood, UA Moderate (A) Negative [facility] Nitrite, UA Negative Negative [facility] Leukocytes, UA Negative Negative [facility] Urobilinogen, UA 0.2 0.2 - 1.0 mg/dL [facility] RBC, UA 105 /HPF [facility] WBC, UA 2 /HPF [facility] Specimen Source [facility] Specimen Urine Performing Organization Address City/[facility]/Zipcode Phone Number [facility] [address] [place] [address] [phone] [place] Blood Culture - Routine (Right Venipuncture) (08/11/2018 12:25 AM CDT)Only the most recent of2 resultswithin the time period is included. Result No growth in 5 days [facility] Specimen Blood Performing Organization Address City/[facility]/Zipcode Phone Number [address] [address] [place] Lipase (08/11/2018 12:24 AM CDT) Lipase 23 8 - 78 U/L [facility] Specimen Blood Performing Organization Address [facility] Centercode Phone Number [address] [address] [phone] [place] XR chest 1 view portable / bedside [...] MD Report Verified Date/Time:08/10/2018 23:47:27 Reading Location: [facility] C013W Consult Reading Room Procedure Note [...] Report Verified Date/Time: 08/10/2018 23:47:27 Reading Location: [facility] B1 C013W Consult Reading Room Performing Organization Address City/State/Zipcode Phone Number [facility] TSH/Free T4 If Indicated (08/10/2018 7:00 PM CDT) TSH 0.30 (L) 0.35 - 4.94 uIU/mL [facility] Specimen Blood Performing Organization Address City/[facility] Cent[facility]ode Phone Number [address] [address] CENTER T4, free (08/10/2018 7:00 PM CDT) Free T4 0.86 0.70 - 1.48 ng/dL [facility] Specimen Blood Performing Organization Address [facility] Phone Number [address] [address] CENTER Ammonia (08/10/2018 7:00 PM CDT) Ammonia 29 18 - 72 mol/L [facility] Specimen Blood Performing Organization Address [facility] Phone Number [address] [address] [phone] CENTER PT/aPTT (08/10/2018 5:44 PM CDT) Protime 14.8 (H) 11.9 - 14.2 seconds [facility] INR 1.2 <=5.9 [facility] PTT 30.3 22.5 - 36.0 seconds [facility] Specimen Blood Narrative Performed At Effective 07/15/2018: PT Reference Range [facility] Change New: 11.9-14.2Previous: 11.7-14.7 RECOMMENDED COUMADIN/WARFARIN INR THERAPY RANGES STANDARD DOSE: 2.0-3.0Includes: PROPHYLAXIS for venous thrombosis, systemic embolization; TREATMENT for venous thrombosis and/or pulmonary embolus. HIGH RISK: Target INR is 2.5-3.5 for patients wiht mechanical heart valves. Performing Organization Address City/[facility]/Zipcode Phone Number [address] [address] CENTER Hemoglobin A1c (08/10/2018 5:44 PM CDT) Hemoglobin A1C 7.5 (H) 4.3 - 6.1 % [facility] Specimen Blood Performing Organization Address [facility] Cent[facility]ode Phone Number [address] [address] [phone] CENTER B-type Natriuretic Factor (BNP) (08/10/2018 5:43 PM CDT) BNP 876 (H) 0 - 100 pg/mL [facility] Specimen Blood Performing Organization Address [facility] Phone Number [address] [address] [phone] [place] 2D Echo W/Doppler(CW/PW/Color) (08/10/2018 4:59 PM CDT) Ejection Fraction [facility] ECHO [facility] Specimen Narrative Performed At Transthoracic Echocardiography Report (TTE) [facility] Demographics Patient Name JUDY CALHOUN Date of Study 08/10/2018 [id number] GenderFemale Visit Number [id number] RaceUnknown [id number] m Number [id number] Number Date of Birth1940 Referring Physician Shira Person Age78 year(s) In Service Coordinator Charlene Vega [facility] Karan Phillip MD RD Physician Procedure [...] of Study 08/10/2018 Gender Female Visit Number [id number] Race Unknown Room Number 722 Number Date of 1940 Referring Physician Shira Person Age 78 year(s) In Service Coordinator Charleneerma Vega [facility] Stock Supervisor Ivonne Brown, Interpreting Stevie Santoro MD [facility] Physician Procedure Type of Study TTE [...] Number [id number] CPACS after 10/14/2017 Insurance Payer Benefit Plan / Group Subscriber ID Type Phone Address [employer] xxxxxxxx Maps Contracted ([place]) [place] [address] Advance Directives For more information, please contact:[address] [phone] Code Status Date Activated Date Inactivated Comments Full Code 08/10/2018 2:16 PM 08/18/2018 7:36 PM This code status was determined by: Patient Full Code 03/21/2016 6:40 PM 03/26/2016 4:41 PM This code status was determined by: Patient
--- OUTSIDE RECORDS SUMMARY | 2018-10-15 18:50 | XMS REPORT | Continuity of Care Document ---
:1940 Author Organization [facility] Care Team Providers Name Role Phone [facility] Information Slingr Unavailable Unavailable Problems Problem Status Onset Classification Date Comments Source Date Reported M54.12 Active 10/02/19 [place] [address] [place] Diabetes Active Problem 10/16/2015 [facility] Diabetes Resolved Problem 10/16/2015 [facility] Gastric reflux Active Problem 10/16/2015 [facility] HTN - Resolved Problem 10/16/2015 [facility] Hy[facility]ension [facility] Hypertension Active Problem 10/16/2015 [facility] RADICULOPATHY, Active [facility] CERVICAL [facility] [place] Medications Medication [...] 2015 [facility] ELECTROLYTES eGFR 62 [facility] 2015 Comment: The Ortho eGFR is and [...] MYELOGRAM CT SCAN OF CERVICAL SPINE 10/13/2015 [facility] myelogram CT DATE: 10/13/2015 10:08 [...] arthrosis to the right with probable fusion. Pqsi-bx-rfajfymi right foraminal narrowing. C3-C4: Jkwl-wc-stskuaxs grade 1 degenerative anterolisthesis of C3 on C4 with a 4 -- 5 mm posterior broad-based disc osteophyte complex indenting ventral cord with posterior cord displacement there and mild central canal narrowing. Cord is mildly flattened. Facet arthrosis greater to the left with hypertrophy noted ofsh-fk-gcojohwd left and mild right foraminal narrowing. C4-C5: Slight degenerative retrolisthesis of C4 on C5 with a 3 -- 4 mm posterior disc osteophyte complex mildly compressing and flattening cord against prominent ligament flavum with mild to moderate ce ntral canal stenosis and mild cord flattening. Mmdf-bs-dmjyoxse bilateral foraminal narrowing secondary to facet and uncovertebral joint degeneration C5-C6: Mild degenerative retrolisthesis of C5 on C6 with a 4 -- 5 mm posterior disc osteophyte complex compressing cord against posterior elements. There is fsdx-nh-efmmeprw central canal stenosis with cord flattening there [...] above. Spine cervical EXAM: Cervical MYELOGRAM 10/13/2015 [facility] myelogram DX DATE: 10/13/2015 10:07 [...] with mild narrowing subarachnoid space. C3-C4 shows eebg-jf-llezaneg ventral and mild dorsal extradural defects mildly encroaching upon ventral cord with xbth-gx-mlxahutn narrowing subarachnoid space C4-C5 shows moderate ventral [...] For Provider Date Date Visit [facility] Outpatient [id number] Fernie 09/28 09/29 [facility]opedic [facility] Sp[facility] Spine [facility] [id number] Fernie 10/12 10/13 [facility] Orthopedic and and Spine Spine [facility] Procedures Procedure Code Date Perfomer Comments Source Abdominal [id number] Ortho hysterectomy and Spine Cholecystectomy [id number] [facility] Spine Excision of lesion of [id number] [facility] phalanges of foot and Spine Assessment and [...]
--- OUTSIDE RECORDS SUMMARY | 2018-10-15 18:50 | XMS REPORT ---
:1940 [facility] [address] [place] [address] Care Team Providers Name Role Phone RYAN [...] PATIENT ID: WITH DOPPLER 16:58:00 exam:->hypertensionShould this [id number] Renal be performed at the ultrasound and [...] MDReport Verified Date/Time: 08/18/2018 16:58:13 Reading Location: [address] Radiology Reading Room UE EXAM 2018-08-18 Surgical Pathology Report 14:09:00 Case: [id number] Authorizing Provider: Roddy Bernard Collected: 08/15/2018 1652 Ordering Location: [address] Received: 08/17/2018 0800 Service Pathologist: Joanne [...] MALIGNANCY NOTED Signing Pathologist Direct Phone Line: [phone] y signed by Joanne Gu MD on 08/18/2018 at 2:09 PMPreliminary result electronically signed by Joanne Gu MD on 08/17/2018 at 6:32 [id number] X 2; [id number]; [id number] bile duct stonesA. Duodenal ulcers biopsy; B. [...] evaluated Immunohistochemistry technical testing was performed at [facility], Pathology Laboratory where it [...] (BEAKER) (test 141 mg/dL 70-110 TESTED AT [facility] [address] [facility] iczl=9257) [facility] [address] [id number] 06:53:00 Test Item Value Reference Range Comments MAGNESIUM (BEAKER) (test mguh=648) 1.9 mg/dL 1.6-2.6 BASIC METABOLIC [id number] 06:53:00 Test Item Value Reference Range Comments SODIUM (BEAKER) (test 134 meq/L 136-145 aqnb=827) POTASSIUM (BEAKER) (test 4.2 meq/L 3.5-5.1 lkie=025) CHLORIDE (BEAKER) (test 103 meq/L 98-107 ipzn=114) CO2 (BEAKER) (test 28 meq/L 22-29 fxnv=288) BLOOD UREA NITROGEN 12 mg/dL 7-21 (BEAKER) (test pwqd=456) CREATININE (BEAKER) (test 0.74 mg/dL 0.57-1.25 jbbz=792) GLUCOSE RANDOM (BEAKER) 124 mg/dL 70-105 (test vwqh=567) CALCIUM (BEAKER) (test 9.9 mg/dL 8.4-10.2 cqpw=095) EGFR (BEAKER) (test 76 mL/min/1.73 sq m ESTIMATED GFR IS NOT fhad=6980) ACCURATE CREATININE CLEARANCE IN PREDICTING GLOMERULAR FILTRATION RATE. ESTIMATED GFR IS NOT APPLICABLE FOR DIALYSIS PATIENTS. HEPATIC FUNCTION [id number] 06:53:00 Test Item Value Reference Range Comments TOTAL PROTEIN (BEAKER) (test fevi=820) 5.4 gm/dL 6.0-8.3 ALBUMIN (BEAKER) (test wcjg=4418) 2.9 g/dL 3.5-5.0 BILIRUBIN TOTAL (BEAKER) (test hxwc=596) 0.4 mg/dL 0.2-1.2 BILIRUBIN DIRECT (BEAKER) (test inad=279) 0.2 mg/dL 0.1-0.5 ALKALINE PHOSPHATASE (BEAKER) (test ygtj=986) 73 U/L 40-150 AST (SGOT) (BEAKER) (test ezip=690) 20 U/L 5-34 ALT (SGPT) (BEAKER) (test umsa=121) 17 U/L 6-55 CBC (HEMOGRAM ONLY)2018-08-18 06:22:00 Test Item Value Reference Range Comments WHITE BLOOD CELL COUNT (BEAKER) (test xyru=532) 11.7 K/ L 3.5-10.5 RED BLOOD CELL COUNT (BEAKER) (test oxcv=976) 3.29 M/ L 3.93-5.22 HEMOGLOBIN (BEAKER) (test btwt=660) 10.4 GM/DL 11.2-15.7 HEMATOCRIT (BEAKER) (test vaql=931) 31.8 % 34.1-44.9 MEAN CORPUSCULAR VOLUME (BEAKER) (test aums=747) 96.7 fL 79.4-94.8 MEAN CORPUSCULAR HEMOGLOBIN (BEAKER) (test 31.6 pg 25.6-32.2 inxi=717) MEAN CORPUSCULAR HEMOGLOBIN CONC (BEAKER) (test 32.7 GM/DL 32.2-35.5 rlpm=392) RED CELL DISTRIBUTION WIDTH (BEAKER) (test 16.6 % 11.7-14.4 bzun=663) PLATELET COUNT (BEAKER) (test xecf=482) 175 K/CU MM 150-450 MEAN PLATELET VOLUME (BEAKER) (test sres=844) 11.4 fL 9.4-12.3 NUCLEATED RED BLOOD CELLS (BEAKER) (test 0 /100 WBC 0-0 zguz=207) POCT-GLUCOSE [id number] 23:08:00 Test Item Value Reference Range Comments POC-GLUCOSE METER (BEAKER) 163 mg/dL 70-110 TESTED AT [place] [id number] [facility] (test uxac=4355) [place] [address] POCT-GLUCOSE [id number] 17:26:00 Test Item Value Reference Range Comments POC-GLUCOSE METER (BEAKER) 131 mg/dL 70-110 TESTED AT [address] (test wbbt=2466) [place] [address] PET, CARDIAC PERFUSION MULTIPLE STUDIES, REST AND [id number] 15:22: 00Reason for exam:->Exclude ischemiaFINAL REPORT PROCEDURE: MYOCARDIAL PERFUSION PET IMAGING (Rest/Stress)CPT CODE: 63093 INDICATION: Define extent of known CAD, chest [...] Verified Date/Time: 08/17/2018 15:22:38 Reading Location: [address] Reading Room POCT-GLUCOSE [id number] 13:27:00 Test Item Value Reference Range Comments POC-GLUCOSE METER (BEAKER) 130 mg/dL 70-110 TESTED AT [address] (test xxnf=8760) [facility] [address] CBC (HEMOGRAM ONLY)2018-08-17 07:52:00 Test Item Value Reference Range Comments WHITE BLOOD CELL COUNT (BEAKER) (test mftc=535) 10.6 K/ L 3.5-10.5 RED BLOOD CELL COUNT (BEAKER) (test uxun=591) 3.45 M/ L 3.93-5.22 HEMOGLOBIN (BEAKER) (test gsba=108) 10.8 GM/DL 11.2-15.7 HEMATOCRIT (BEAKER) (test ofvz=946) 32.9 % 34.1-44.9 MEAN CORPUSCULAR VOLUME (BEAKER) (test ryim=322) 95.4 fL 79.4-94.8 MEAN CORPUSCULAR HEMOGLOBIN (BEAKER) (test 31.3 pg 25.6-32.2 cxpx=032) MEAN CORPUSCULAR HEMOGLOBIN CONC (BEAKER) (test 32.8 GM/DL 32.2-35.5 ksbb=676) RED CELL DISTRIBUTION WIDTH (BEAKER) (test 16.1 % 11.7-14.4 csed=061) PLATELET COUNT (BEAKER) (test sumx=706) 177 K/CU MM 150-450 MEAN PLATELET VOLUME (BEAKER) (test vbdd=400) 11.2 fL 9.4-12.3 NUCLEATED RED BLOOD CELLS (BEAKER) (test 0 /100 WBC 0-0 rmwl=542) [id number] 07:43:00 Test Item Value Reference Range Comments MAGNESIUM (BEAKER) (test unni=499) 1.6 mg/dL 1.6-2.6 BASIC METABOLIC [id number] 07:43:00 Test Item Value Reference Range Comments SODIUM (BEAKER) (test 136 meq/L 136-145 lovf=578) POTASSIUM (BEAKER) (test 3.6 meq/L 3.5-5.1 xuix=736) CHLORIDE (BEAKER) (test 102 meq/L 98-107 jsbt=977) CO2 (BEAKER) (test 29 meq/L 22-29 ynmg=265) BLOOD UREA NITROGEN 10 mg/dL 7-21 (BEAKER) (test dgaw=510) CREATININE (BEAKER) (test 0.74 mg/dL 0.57-1.25 xrey=565) GLUCOSE RANDOM (BEAKER) 134 mg/dL 70-105 (test nufu=315) CALCIUM (BEAKER) (test 9.9 mg/dL 8.4-10.2 fqmu=876) EGFR (BEAKER) (test 76 mL/min/1.73 sq m ESTIMATED GFR IS NOT jkbr=3224) ACCURATE CREATININE CLEARANCE IN PREDICTING GLOMERULAR FILTRATION RATE. ESTIMATED GFR IS NOT APPLICABLE FOR DIALYSIS PATIENTS. HEPATIC FUNCTION [id number] 07:43:00 Test Item Value Reference Range Comments TOTAL PROTEIN (BEAKER) (test vbha=538) 5.2 gm/dL 6.0-8.3 ALBUMIN (BEAKER) (test pmth=3362) 2.8 g/dL 3.5-5.0 BILIRUBIN TOTAL (BEAKER) (test jita=120) 0.5 mg/dL 0.2-1.2 BILIRUBIN DIRECT (BEAKER) (test ujdd=828) 0.3 mg/dL 0.1-0.5 ALKALINE PHOSPHATASE (BEAKER) (test uyoi=926) 76 U/L 40-150 AST (SGOT) (BEAKER) (test kjrj=766) 21 U/L 5-34 ALT (SGPT) (BEAKER) (test nzov=245) 17 U/L 6-55 POCT-GLUCOSE [id number] 07:24:00 Test Item Value Reference Range Comments POC-GLUCOSE METER (BEAKER) 144 mg/dL 70-110 TESTED AT [facility] [address] [facility] (test thjw=3239) [facility] [address] POCT-GLUCOSE [id number] 23:39:00 Test Item Value Reference Range Comments POC-GLUCOSE METER (BEAKER) 159 mg/dL 70-110 TESTED AT [address] (test mzjq=1745) [facility] [address] POCT-GLUCOSE [id number] 17:20:00 Test Item Value Reference Range Comments POC-GLUCOSE METER (BEAKER) 168 mg/dL 70-110 TESTED AT [address] (test hsvq=6481) [facility] [address] COMPREHENSIVE METABOLIC [id number] 13:35:00 Test Item Value Reference Range Comments TOTAL PROTEIN (BEAKER) 5.4 gm/dL 6.0-8.3 (test iewm=031) ALBUMIN (BEAKER) (test 2.9 g/dL 3.5-5.0 axzi=1634) ALKALINE PHOSPHATASE 86 U/L 40-150 (BEAKER) (test irrq=389) BILIRUBIN TOTAL (BEAKER) 0.4 mg/dL 0.2-1.2 (test rftg=551) SODIUM (BEAKER) (test 135 meq/L 136-145 rbru=440) POTASSIUM (BEAKER) (test 3.7 meq/L 3.5-5.1 trbn=880) CHLORIDE (BEAKER) (test 102 meq/L 98-107 xwmk=344) CO2 (BEAKER) (test 28 meq/L 22-29 ndyf=521) BLOOD UREA NITROGEN 10 mg/dL 7-21 (BEAKER) (test riyy=407) CREATININE (BEAKER) (test 0.83 mg/dL 0.57-1.25 iqnx=346) GLUCOSE RANDOM (BEAKER) 150 mg/dL 70-105 (test vidl=008) CALCIUM (BEAKER) (test 10.0 mg/dL 8.4-10.2 fblt=244) AST (SGOT) (BEAKER) (test 25 U/L 5-34 mrfu=179) ALT (SGPT) (BEAKER) (test 23 U/L 6-55 ctsj=892) EGFR (BEAKER) (test 66 mL/min/1.73 sq m ESTIMATED GFR IS NOT rrww=3311) ACCURATE CREATININE CLEARANCE IN PREDICTING GLOMERULAR FILTRATION RATE. ESTIMATED GFR IS NOT APPLICABLE FOR DIALYSIS PATIENTS. CBC W/PLT COUNT & AUTO [id number] 13:14:00 Test Item Value Reference Range Comments WHITE BLOOD CELL COUNT (BEAKER) (test jlhm=956) 12.9 K/ L 3.5-10.5 RED BLOOD CELL COUNT (BEAKER) (test iagn=437) 3.74 M/ L 3.93-5.22 HEMOGLOBIN (BEAKER) (test sltm=708) 11.6 GM/DL 11.2-15.7 HEMATOCRIT (BEAKER) (test kcsp=808) 35.0 % 34.1-44.9 MEAN CORPUSCULAR VOLUME (BEAKER) (test gozf=871) 93.6 fL 79.4-94.8 MEAN CORPUSCULAR HEMOGLOBIN (BEAKER) (test 31.0 pg 25.6-32.2 tdmj=428) MEAN CORPUSCULAR HEMOGLOBIN CONC (BEAKER) (test 33.1 GM/DL 32.2-35.5 otbo=696) RED CELL DISTRIBUTION WIDTH (BEAKER) (test 16.0 % 11.7-14.4 xvlj=963) PLATELET COUNT (BEAKER) (test ggve=108) 165 K/CU MM 150-450 MEAN PLATELET VOLUME (BEAKER) (test eqkk=969) 10.1 fL 9.4-12.3 NUCLEATED RED BLOOD CELLS (BEAKER) (test 0 /100 WBC 0-0 lfdk=539) NEUTROPHILS RELATIVE PERCENT (BEAKER) (test 84 % yyqp=446) LYMPHOCYTES RELATIVE PERCENT (BEAKER) (test 7 % wdvz=051) MONOCYTES RELATIVE PERCENT (BEAKER) (test 7 % tlae=338) EOSINOPHILS RELATIVE PERCENT (BEAKER) (test 2 % hfup=671) BASOPHILS RELATIVE PERCENT (BEAKER) (test 0 % apcx=917) NEUTROPHILS ABSOLUTE COUNT (BEAKER) (test 10.89 K/ L 1.56-6.13 emkz=339) LYMPHOCYTES ABSOLUTE COUNT (BEAKER) (test 0.90 K/ L 1.18-3.74 vysw=178) MONOCYTES ABSOLUTE COUNT (BEAKER) (test 0.84 K/ L 0.24-0.36 ndhs=704) EOSINOPHILS ABSOLUTE COUNT (BEAKER) (test 0.20 K/ L 0.04-0.36 brcd=482) BASOPHILS ABSOLUTE COUNT (BEAKER) (test 0.05 K/ L 0.01-0.08 rqft=202) IMMATURE GRANULOCYTES-RELATIVE PERCENT (BEAKER) 1 % 0-1 (test lzyt=1624) POCT-GLUCOSE [id number] 12:12:00 Test Item Value Reference Range Comments POC-GLUCOSE METER (BEAKER) 154 mg/dL 70-110 TESTED AT [address] (test pkat=6137) [place] [address] BLOOD [id number] 08:00:00 Test Item Value Reference Range Comments CULTURE (BEAKER) (test bzxd=2224) No growth in 5 days BLOOD [id number] 08:00:00 Test Item Value Reference Range Comments CULTURE (BEAKER) (test fhil=7218) No growth in 5 days POCT-GLUCOSE [id number] 07:45:00 Test Item Value Reference Range Comments POC-GLUCOSE METER (BEAKER) 115 mg/dL 70-110 TESTED AT [address] (test bfvy=9546) [place] [address] POCT-GLUCOSE [id number] 23:02:00 Test Item Value Reference Range Comments POC-GLUCOSE METER (BEAKER) 90 mg/dL 70-110 TESTED AT [address] (test qynt=0857) [facility] [address] [place], [id number] 17:37:00INTRA OP IMAGINGReason for exam:->CBD STONESFINAL REPORT Fluoroscopy, less than 1 hour History:ERCP Comparison: none Findings:Fluoroscopic assistance was provided during ERCP. Fluoroscopic images taken were interpreted bythe referring clinician. Please see separate procedure note for full details. Total Fluoroscopy time: 79.2 seconds Number of fluoroscopic images obtained: Four Impression:Fluoroscopy assistance as described above. Signed: Enio Ley Verified Date/ Time: 08/15/2018 17:37:26 Reading Location: [address] Reading Room POCT-GLUCOSE [id number] 17:35:00 Test Item Value Reference Range Comments POC-GLUCOSE METER (BEAKER) 180 mg/dL 70-110 TESTED AT [facility] [address] [facility] (test dsbl=2692) [facility] [address] POCT-GLUCOSE [id number] 07:57:00 Test Item Value Reference Range Comments POC-GLUCOSE METER (BEAKER) 129 mg/dL 70-110 TESTED AT [facility] [address] [facility] (test eamr=1627) [facility] [address] [id number] 06:01:00 Test Item Value Reference Range Comments MAGNESIUM (BEAKER) (test lsah=284) 1.6 mg/dL 1.6-2.6 BASIC METABOLIC [id number] 06:01:00 Test Item Value Reference Range Comments SODIUM (BEAKER) (test 138 meq/L 136-145 zpji=587) POTASSIUM (BEAKER) (test 3.8 meq/L 3.5-5.1 owgd=214) CHLORIDE (BEAKER) (test 108 meq/L 98-107 ezos=122) CO2 (BEAKER) (test 25 meq/L 22-29 wimk=092) BLOOD UREA NITROGEN 7 mg/dL 7-21 (BEAKER) (test pukk=290) CREATININE (BEAKER) (test 0.77 mg/dL 0.57-1.25 faft=557) GLUCOSE RANDOM (BEAKER) 123 mg/dL 70-105 (test yunr=105) CALCIUM (BEAKER) (test 10.0 mg/dL 8.4-10.2 snjk=566) EGFR (BEAKER) (test 72 mL/min/1.73 sq m ESTIMATED GFR IS NOT yqxi=7018) ACCURATE CREATININE CLEARANCE IN PREDICTING GLOMERULAR FILTRATION RATE. ESTIMATED GFR IS NOT APPLICABLE FOR DIALYSIS PATIENTS. HEPATIC FUNCTION [id number] 06:01:00 Test Item Value Reference Range Comments TOTAL PROTEIN (BEAKER) (test qbtm=092) 5.4 gm/dL 6.0-8.3 ALBUMIN (BEAKER) (test vnii=7614) 2.9 g/dL 3.5-5.0 BILIRUBIN TOTAL (BEAKER) (test cllq=578) 0.5 mg/dL 0.2-1.2 BILIRUBIN DIRECT (BEAKER) (test apfz=776) 0.3 mg/dL 0.1-0.5 ALKALINE PHOSPHATASE (BEAKER) (test dflj=644) 92 U/L 40-150 AST (SGOT) (BEAKER) (test wxhe=108) 33 U/L 5-34 ALT (SGPT) (BEAKER) (test yoot=481) 30 U/L 6-55 CBC (HEMOGRAM ONLY)2018-08-15 04:44:00 Test Item Value Reference Range Comments WHITE BLOOD CELL COUNT (BEAKER) (test jxhc=505) 11.8 K/ L 3.5-10.5 RED BLOOD CELL COUNT (BEAKER) (test rulz=548) 3.97 M/ L 3.93-5.22 HEMOGLOBIN (BEAKER) (test rzux=790) 12.6 GM/DL 11.2-15.7 HEMATOCRIT (BEAKER) (test bdyj=263) 37.4 % 34.1-44.9 MEAN CORPUSCULAR VOLUME (BEAKER) (test mjpw=126) 94.2 fL 79.4-94.8 MEAN CORPUSCULAR HEMOGLOBIN (BEAKER) (test 31.7 pg 25.6-32.2 twxs=445) MEAN CORPUSCULAR HEMOGLOBIN CONC (BEAKER) (test 33.7 GM/DL 32.2-35.5 igwx=712) RED CELL DISTRIBUTION WIDTH (BEAKER) (test 15.8 % 11.7-14.4 nuxm=761) PLATELET COUNT (BEAKER) (test luur=297) 189 K/CU MM 150-450 MEAN PLATELET VOLUME (BEAKER) (test zviw=413) 10.7 fL 9.4-12.3 NUCLEATED RED BLOOD CELLS (BEAKER) (test 0 /100 WBC 0-0 tuhb=876) POCT-GLUCOSE [id number] 23:38:00 Test Item Value Reference Range Comments POC-GLUCOSE METER (BEAKER) 137 mg/dL 70-110 TESTED AT [address] (test xhhl=5286) [facility] [address] POCT-GLUCOSE [id number] 12:13:00 Test Item Value Reference Range Comments POC-GLUCOSE METER (BEAKER) 159 mg/dL 70-110 TESTED AT [address] (test bqch=3361) [facility] [address] POCT-GLUCOSE [id number] 08:11:00 Test Item Value Reference Range Comments POC-GLUCOSE METER (BEAKER) 138 mg/dL 70-110 TESTED AT [facility] [address] (test pzma=3587) [place] [address] [id number] 06:01:00 Test Item Value Reference Range Comments MAGNESIUM (BEAKER) (test qelg=654) 1.7 mg/dL 1.6-2.6 BASIC METABOLIC [id number] 06:01:00 Test Item Value Reference Range Comments SODIUM (BEAKER) (test 138 meq/L 136-145 ybfp=577) POTASSIUM (BEAKER) (test 3.8 meq/L 3.5-5.1 cwvm=330) CHLORIDE (BEAKER) (test 109 meq/L 98-107 mpri=011) CO2 (BEAKER) (test 26 meq/L 22-29 iwwg=807) BLOOD UREA NITROGEN 10 mg/dL 7-21 (BEAKER) (test pxvw=586) CREATININE (BEAKER) (test 0.80 mg/dL 0.57-1.25 vmgb=989) GLUCOSE RANDOM (BEAKER) 106 mg/dL 70-105 (test uktj=613) CALCIUM (BEAKER) (test 9.4 mg/dL 8.4-10.2 ihwy=482) EGFR (BEAKER) (test 69 mL/min/1.73 sq m ESTIMATED GFR IS NOT rbjn=1595) ACCURATE CREATININE CLEARANCE IN PREDICTING GLOMERULAR FILTRATION RATE. ESTIMATED GFR IS NOT APPLICABLE FOR DIALYSIS PATIENTS. HEPATIC FUNCTION [id number] 06:01:00 Test Item Value Reference Range Comments TOTAL PROTEIN (BEAKER) (test dzpu=337) 5.4 gm/dL 6.0-8.3 ALBUMIN (BEAKER) (test ntxt=2822) 2.9 g/dL 3.5-5.0 BILIRUBIN TOTAL (BEAKER) (test tlmk=040) 0.5 mg/dL 0.2-1.2 BILIRUBIN DIRECT (BEAKER) (test txdw=396) 0.4 mg/dL 0.1-0.5 ALKALINE PHOSPHATASE (BEAKER) (test iwkk=408) 105 U/L 40-150 AST (SGOT) (BEAKER) (test swhl=921) 33 U/L 5-34 ALT (SGPT) (BEAKER) (test gkow=660) 31 U/L 6-55 CBC (HEMOGRAM ONLY)2018-08-14 05:10:00 Test Item Value Reference Range Comments WHITE BLOOD CELL COUNT (BEAKER) (test qawu=689) 10.6 K/ L 3.5-10.5 RED BLOOD CELL COUNT (BEAKER) (test iskl=423) 3.87 M/ L 3.93-5.22 HEMOGLOBIN (BEAKER) (test tpcm=498) 12.0 GM/DL 11.2-15.7 HEMATOCRIT (BEAKER) (test nkax=041) 36.9 % 34.1-44.9 MEAN CORPUSCULAR VOLUME (BEAKER) (test ieju=540) 95.3 fL 79.4-94.8 MEAN CORPUSCULAR HEMOGLOBIN (BEAKER) (test 31.0 pg 25.6-32.2 yxmv=048) MEAN CORPUSCULAR HEMOGLOBIN CONC (BEAKER) (test 32.5 GM/DL 32.2-35.5 exia=218) RED CELL DISTRIBUTION WIDTH (BEAKER) (test 15.7 % 11.7-14.4 wlry=546) PLATELET COUNT (BEAKER) (test rvfx=608) 158 K/CU MM 150-450 MEAN PLATELET VOLUME (BEAKER) (test wvij=042) 11.0 fL 9.4-12.3 NUCLEATED RED BLOOD CELLS (BEAKER) (test 0 /100 WBC 0-0 eyjf=080) POCT-GLUCOSE [id number] 23:53:00 Test Item Value Reference Range Comments POC-GLUCOSE METER (BEAKER) 115 mg/dL 70-110 TESTED AT [address] (test qirp=0583) [facility] [address] POCT-GLUCOSE [id number] 16:48:00 Test Item Value Reference Range Comments POC-GLUCOSE METER (BEAKER) 83 mg/dL 70-110 TESTED AT [address] (test ylcl=8425) [facility] [address] POCT-GLUCOSE [id number] 13:19:00 Test Item Value Reference Range Comments POC-GLUCOSE METER (BEAKER) 102 mg/dL 70-110 TESTED AT [address] (test axhr=2260) [facility] [address] POCT-GLUCOSE [id number] 12:02:00 Test Item Value Reference Range Comments POC-GLUCOSE METER (BEAKER) 95 mg/dL 70-110 TESTED AT [facility] [address] [facility] (test nvtp=4155) [facility] [address] POCT-GLUCOSE [id number] 07:22:00 Test Item Value Reference Range Comments POC-GLUCOSE METER (BEAKER) 109 mg/dL 70-110 TESTED AT [facility] [address] [facility] (test tgut=1119) [facility] [address] [id number] 04:31:00 Test Item Value Reference Range Comments MAGNESIUM (BEAKER) (test 1.7 mg/dL 1.6-2.6 Specimen slightly hemolyzed xcyh=495) BASIC METABOLIC [id number] 04:31:00 Test Item Value Reference Range Comments SODIUM (BEAKER) (test 140 meq/L 136-145 trzc=342) POTASSIUM (BEAKER) (test 3.6 meq/L 3.5-5.1 Specimen slightly gltb=011) hemolyzed CHLORIDE (BEAKER) (test 111 meq/L 98-107 qcwg=747) CO2 (BEAKER) (test 24 meq/L 22-29 xamz=524) BLOOD UREA NITROGEN 12 mg/dL 7-21 (BEAKER) (test vajr=031) CREATININE (BEAKER) (test 0.79 mg/dL 0.57-1.25 Specimen slightly rpyp=256) hemolyzed GLUCOSE RANDOM (BEAKER) 110 mg/dL 70-105 (test kecu=475) CALCIUM (BEAKER) (test 9.5 mg/dL 8.4-10.2 gdtu=066) EGFR (BEAKER) (test 70 mL/min/1.73 sq m ESTIMATED GFR IS NOT oraw=1061) ACCURATE CREATININE CLEARANCE IN PREDICTING GLOMERULAR FILTRATION RATE. ESTIMATED GFR IS NOT APPLICABLE FOR DIALYSIS PATIENTS. HEPATIC FUNCTION [id number] 04:31:00 Test Item Value Reference Range Comments TOTAL PROTEIN (BEAKER) (test 5.2 gm/dL 6.0-8.3 Specimen slightly hemolyzed fqmc=534) ALBUMIN (BEAKER) (test 2.7 g/dL 3.5-5.0 Specimen slightly hemolyzed ixee=8132) BILIRUBIN TOTAL (BEAKER) (test 0.7 mg/dL 0.2-1.2 Specimen slightly hemolyzed uxgn=045) BILIRUBIN DIRECT (BEAKER) (test 0.3 mg/dL 0.1-0.5 Specimen slightly hemolyzed hzwx=185) ALKALINE PHOSPHATASE (BEAKER) 118 U/L 40-150 (test nwnb=450) AST (SGOT) (BEAKER) (test 52 U/L 5-34 Specimen slightly hemolyzed fuhz=098) ALT (SGPT) (BEAKER) (test 43 U/L 6-55 Specimen slightly hemolyzed lrcw=824) CBC (HEMOGRAM ONLY)2018-08-13 03:56:00 Test Item Value Reference Range Comments WHITE BLOOD CELL COUNT (BEAKER) (test anmg=950) 9.7 K/ L 3.5-10.5 RED BLOOD CELL COUNT (BEAKER) (test yjkh=352) 3.51 M/ L 3.93-5.22 HEMOGLOBIN (BEAKER) (test ndib=357) 11.0 GM/DL 11.2-15.7 HEMATOCRIT (BEAKER) (test okrq=922) 33.1 % 34.1-44.9 MEAN CORPUSCULAR VOLUME (BEAKER) (test ncqa=692) 94.3 fL 79.4-94.8 MEAN CORPUSCULAR HEMOGLOBIN (BEAKER) (test 31.3 pg 25.6-32.2 tapu=307) MEAN CORPUSCULAR HEMOGLOBIN CONC (BEAKER) (test 33.2 GM/DL 32.2-35.5 ynok=876) RED CELL DISTRIBUTION WIDTH (BEAKER) (test 15.3 % 11.7-14.4 dser=734) PLATELET COUNT (BEAKER) (test kusy=959) 128 K/CU MM 150-450 MEAN PLATELET VOLUME (BEAKER) (test hnqx=909) 11.1 fL 9.4-12.3 NUCLEATED RED BLOOD CELLS (BEAKER) (test 0 /100 WBC 0-0 miqc=116) POCT-GLUCOSE [id number] 22:11:00 Test Item Value Reference Range Comments POC-GLUCOSE METER (BEAKER) 138 mg/dL 70-110 TESTED AT [address] (test kksp=5749) [facility] [address] POCT-GLUCOSE [id number] 16:28:00 Test Item Value Reference Range Comments POC-GLUCOSE METER (BEAKER) 155 mg/dL 70-110 TESTED AT [address] (test eipn=1610) [facility] [address] [address], [id number] 13:32:00FINAL REPORT CT abdomen and pelvis without [...] MDReport Verified Date/Time: 08/12/2018 13:32:12 Reading Location: [facility] Diagnostic Imaging Reading Room - [place] [address] [address], BRAIN, WITHOUT [id number] 12:57:00FINAL REPORT CT, BRAIN, WITHOUT CONTRAST CLINICAL [...] Motta Verified Date/Time: 2018 12:57:37 Reading Location: [facility] Radiology Reading Room POCT -GLUCOSE [id number] 12:48:00 Test Item Value Reference Range Comments POC-GLUCOSE METER (BEAKER) 156 mg/dL 70-110 TESTED AT [address] (test gsoy=1090) [facility] [address] POCT-GLUCOSE [id number] 07:16:00 Test Item Value Reference Range Comments POC-GLUCOSE METER (BEAKER) 157 mg/dL 70-110 TESTED AT [address] (test glor=7375) [facility] [address] VITAMIN [id number] 05:53:00 Test Item Value Reference Range Comments VITAMIN B12 (BEAKER) (test dzpe=364) 1063 pg/mL 213-816 [id number] 05:27:00 Test Item Value Reference Range Comments MAGNESIUM (BEAKER) (test xnno=868) 1.7 mg/dL 1.6-2.6 BASIC METABOLIC [id number] 05:27:00 Test Item Value Reference Range Comments SODIUM (BEAKER) (test 140 meq/L 136-145 xyxd=251) POTASSIUM (BEAKER) (test 3.6 meq/L 3.5-5.1 zovx=346) CHLORIDE (BEAKER) (test 109 meq/L 98-107 fnbp=878) CO2 (BEAKER) (test 27 meq/L 22-29 uzwx=226) BLOOD UREA NITROGEN 16 mg/dL 7-21 (BEAKER) (test cphd=229) CREATININE (BEAKER) (test 0.88 mg/dL 0.57-1.25 urkx=152) GLUCOSE RANDOM (BEAKER) 152 mg/dL 70-105 (test gtlj=596) CALCIUM (BEAKER) (test 9.7 mg/dL 8.4-10.2 eebf=060) EGFR (BEAKER) (test 62 mL/min/1.73 sq m ESTIMATED GFR IS NOT rind=7713) ACCURATE CREATININE CLEARANCE IN PREDICTING GLOMERULAR FILTRATION RATE. ESTIMATED GFR IS NOT APPLICABLE FOR DIALYSIS PATIENTS. HEPATIC FUNCTION [id number] 05:27:00 Test Item Value Reference Range Comments TOTAL PROTEIN (BEAKER) (test fulf=219) 5.9 gm/dL 6.0-8.3 ALBUMIN (BEAKER) (test nwuz=5520) 3.2 g/dL 3.5-5.0 BILIRUBIN TOTAL (BEAKER) (test vxba=483) 1.1 mg/dL 0.2-1.2 BILIRUBIN DIRECT (BEAKER) (test hnrv=046) 0.7 mg/dL 0.1-0.5 ALKALINE PHOSPHATASE (BEAKER) (test kybt=349) 77 U/L 40-150 AST (SGOT) (BEAKER) (test bbod=203) 26 U/L 5-34 ALT (SGPT) (BEAKER) (test tknf=695) 19 U/L 6-55 LACTIC ACID, [id number] 05:12:00 Test Item Value Reference Range Comments LACTATE BLOOD VENOUS (2) 0.9 mmol/L 0.5-2.2 Specimen slightly hemolyzed (BEAKER) (test tiqm=0679) CBC (HEMOGRAM ONLY)2018-08-12 05:00:00 Test Item Value Reference Range Comments WHITE BLOOD CELL COUNT (BEAKER) (test aaev=935) 12.8 K/ L 3.5-10.5 RED BLOOD CELL COUNT (BEAKER) (test pagg=540) 3.82 M/ L 3.93-5.22 HEMOGLOBIN (BEAKER) (test ptrb=793) 12.1 GM/DL 11.2-15.7 HEMATOCRIT (BEAKER) (test rnit=100) 36.4 % 34.1-44.9 MEAN CORPUSCULAR VOLUME (BEAKER) (test sknk=735) 95.3 fL 79.4-94.8 MEAN CORPUSCULAR HEMOGLOBIN (BEAKER) (test 31.7 pg 25.6-32.2 dzzx=067) MEAN CORPUSCULAR HEMOGLOBIN CONC (BEAKER) (test 33.2 GM/DL 32.2-35.5 gjqq=430) RED CELL DISTRIBUTION WIDTH (BEAKER) (test 15.3 % 11.7-14.4 oeft=906) PLATELET COUNT (BEAKER) (test jcrq=493) 154 K/CU MM 150-450 MEAN PLATELET VOLUME (BEAKER) (test kpls=165) 11.0 fL 9.4-12.3 NUCLEATED RED BLOOD CELLS (BEAKER) (test 0 /100 WBC 0-0 zcdg=454) TROPONIN [id number] 01:40:00 Test Item Value Reference Range Comments TROPONIN I (BEAKER) (test xyrv=069) 0.02 ng/mL 0.00-0.03 Troponin I (TnI) levels [...] acidosis, acute neurological disease, and persistent tachyarrhythmia.POCT-GLUCOSE [id number] 22:32:00 Test Item Value Reference Range Comments POC-GLUCOSE METER (BEAKER) 154 mg/dL 70-110 TESTED AT [facility] [address] (test bopc=6466) [facility] [address] [id number] 22:27:00 Test Item Value Reference Range Comments PROCALCITONIN (BEAKER) (test vlfc=2849) < ng/mL <0.05 SEPSIS RISK (ng/mL)Low: 0.05-0.50Intermediate: 0.51-2.00High: & gt;=2.01TROPONIN [id number] 18:31:00 Test Item Value Reference Range Comments TROPONIN I (BEAKER) (test kvyh=854) 0.01 ng/mL 0.00-0.03 Troponin I (TnI) levels [...] acidosis, acute neurological disease, and persistent tachyarrhythmia.POCT-GLUCOSE [id number] 12:21:00 Test Item Value Reference Range Comments POC-GLUCOSE METER (BEAKER) 178 mg/dL 70-110 TESTED AT [address] (test prlo=1858) [facility] [address] RAD, ABDOMEN/KUB, 1 VIEW [id number] 11:42:00Reason for exam:->abdominal painShould this be performed [...] mesh is again seen. Signed: [facility] Verified Date/ Time: 08/11/2018 11:42:12 Reading Location: [facility] Radiology Reading Room POCT -BLOOD GASES, [id number] 09:41:00 Test Item Value Reference Range Comments TEMP, CELSIUS-POC (BEAKER) 36.9 (test ojjo=9284) FIO2-POC (BEAKER) (test 28 TESTED AT [address] xaqq=1805) [facility] [address] PH, VENOUS-POC (BEAKER) 7.344 7.320-7.420 (test heib=4743) PCO2, VENOUS-POC (BEAKER) 48.8 mm Hg 41.0-51.0 (test txgp=6993) PO2, VENOUS-POC (BEAKER) 36.0 mm Hg 25.0-40.0 (test fpnq=2202) SO2, VENOUS-POC (BEAKER) 66.0 % 40.0-70.0 (test nfnw=0911) HCO3, VENOUS-POC (BEAKER) 26.6 meq/L 21.0-29.0 (test qwye=4524) BASE EXCESS, VENOUS-POC 1.0 meq/L -2.0-3.0 (BEAKER) (test pgin=6689) [id number] 09:41:00 Test Item Value Reference Range Comments POC-SODIUM (BEAKER) (test 142 meq/L 135-148 TESTED AT [address] dqdf=8144) [place] [id number] 09:41:00 Test Item Value Reference Range Comments POC-POTASSIUM (BEAKER) (test 3.6 meq/L 3.6-5.5 TESTED AT [address] sadj=9583) [place] [address] [id number] 09:41:00 Test Item Value Reference Range Comments POC-GLUCOSE (BEAKER) (test 165 mg/dL 70-110 TESTED AT [address] pejx=2570) [place] [address] POCT-CALCIUM [id number] 09:41:00 Test Item Value Reference Range Comments POC-CALCIUM IONIZED (BEAKER) 1.50 mmol/L 1.12-1.27 TESTED AT [address] (test wddh=9505) [place] [address] [id number] 09:41:00 Test Item Value Reference Range Comments POC-HEMATOCRIT (BEAKER) (test 34 % 36-45 TESTED AT [address] dfiu=5893) [place] [address] [id number] 09:41:00 Test Item Value Reference Range Comments POC-HEMOGLOBIN (BEAKER) 11.6 g/dL 12.0-15.0 TESTED AT [address] (test pfep=8307) [place] [address]TESTED AT [place] [id number] POCT-LACTIC ACID, [id number] 09:41:00 Test Item Value Reference Range Comments POC-LACTIC ACID, VENOUS 0.9 mmol/L 0.9-1.7 TESTED AT [address] (BEAKER) (test sgyc=9468) [place] [id number] URINALYSIS W/ REFLEX URINE [id number] 09:28:00 Test Item Value Reference Range Comments COLOR (BEAKER) (test bras=860) Yellow CLARITY (BEAKER) (test ityf=146) Clear SPECIFIC GRAVITY UA (BEAKER) (test lrzm=175) 1.012 1.001-1.035 PH UA (BEAKER) (test iphw=217) 6.0 5.0-8.0 PROTEIN UA (BEAKER) (test ywfv=696) 10 mg/dL Negative GLUCOSE UA (BEAKER) (test ongc=171) 50 mg/dL Negative KETONES UA (BEAKER) (test otxb=327) 20 mg/dL Negative BILIRUBIN UA (BEAKER) (test fkdt=678) Negative Negative BLOOD UA (BEAKER) (test vkdc=659) Moderate Negative NITRITE UA (BEAKER) (test ypqx=264) Negative Negative LEUKOCYTE ESTERASE UA (BEAKER) (test wvvq=634) Negative Negative UROBILINOGEN UA (BEAKER) (test jqkc=618) 0.2 mg/dL 0.2-1.0 RBC UA (BEAKER) (test mwae=243) 105 /HPF WBC UA (BEAKER) (test qnfl=388) 2 /HPF SOURCE(BEAKER) (test dagw=3108) POCT-GLUCOSE [id number] 09:17:00 Test Item Value Reference Range Comments POC-GLUCOSE METER (BEAKER) 172 mg/dL 70-110 TESTED AT [facility] [address] [facility] (test uson=3269) [facility] [address] [id number] 06:43:00 Test Item Value Reference Range Comments MAGNESIUM (BEAKER) (test zcqk=171) 1.7 mg/dL 1.6-2.6 BASIC METABOLIC [id number] 06:43:00 Test Item Value Reference Range Comments SODIUM (BEAKER) (test 140 meq/L 136-145 ghui=528) POTASSIUM (BEAKER) (test 3.7 meq/L 3.5-5.1 qerl=706) CHLORIDE (BEAKER) (test 110 meq/L 98-107 rcvx=275) CO2 (BEAKER) (test 25 meq/L 22-29 shej=150) BLOOD UREA NITROGEN 16 mg/dL 7-21 (BEAKER) (test ppsd=075) CREATININE (BEAKER) (test 0.78 mg/dL 0.57-1.25 eagy=795) GLUCOSE RANDOM (BEAKER) 163 mg/dL 70-105 (test vafq=728) CALCIUM (BEAKER) (test 10.3 mg/dL 8.4-10.2 zmma=437) EGFR (BEAKER) (test 71 mL/min/1.73 sq m ESTIMATED GFR IS NOT uvbj=9786) ACCURATE CREATININE CLEARANCE IN PREDICTING GLOMERULAR FILTRATION RATE. ESTIMATED GFR IS NOT APPLICABLE FOR DIALYSIS PATIENTS. HEPATIC FUNCTION [id number] 06:43:00 Test Item Value Reference Range Comments TOTAL PROTEIN (BEAKER) (test fzdy=671) 5.8 gm/dL 6.0-8.3 ALBUMIN (BEAKER) (test sevr=2248) 3.2 g/dL 3.5-5.0 BILIRUBIN TOTAL (BEAKER) (test audq=962) 1.1 mg/dL 0.2-1.2 BILIRUBIN DIRECT (BEAKER) (test eakv=019) 0.7 mg/dL 0.1-0.5 ALKALINE PHOSPHATASE (BEAKER) (test phxr=013) 76 U/L 40-150 AST (SGOT) (BEAKER) (test rgqt=381) 23 U/L 5-34 ALT (SGPT) (BEAKER) (test bacp=720) 20 U/L 6-55 CBC (HEMOGRAM ONLY)2018-08-11 05:56:00 Test Item Value Reference Range Comments WHITE BLOOD CELL COUNT (BEAKER) (test nbgp=832) 15.2 K/ L 3.5-10.5 RED BLOOD CELL COUNT (BEAKER) (test filc=721) 3.68 M/ L 3.93-5.22 HEMOGLOBIN (BEAKER) (test ktom=311) 11.5 GM/DL 11.2-15.7 HEMATOCRIT (BEAKER) (test bvac=322) 35.4 % 34.1-44.9 MEAN CORPUSCULAR VOLUME (BEAKER) (test ywbq=173) 96.2 fL 79.4-94.8 MEAN CORPUSCULAR HEMOGLOBIN (BEAKER) (test 31.3 pg 25.6-32.2 ilcx=748) MEAN CORPUSCULAR HEMOGLOBIN CONC (BEAKER) (test 32.5 GM/DL 32.2-35.5 hera=631) RED CELL DISTRIBUTION WIDTH (BEAKER) (test 15.8 % 11.7-14.4 fijt=590) PLATELET COUNT (BEAKER) (test omkz=489) 139 K/CU MM 150-450 MEAN PLATELET VOLUME (BEAKER) (test xvpf=270) 11.3 fL 9.4-12.3 NUCLEATED RED BLOOD CELLS (BEAKER) (test 0 /100 WBC 0-0 uope=645) TROPONIN [id number] 01:18:00 Test Item Value Reference Range Comments TROPONIN I (BEAKER) (test dkgl=881) 0.04 ng/mL 0.00-0.03 Troponin I (TnI) levels [...] failure, acidosis, acute neurological disease, and persistent tachyarrhythmia.[id number] 01:13:00 Test Item Value Reference Range Comments MAGNESIUM (BEAKER) (test jdxb=902) 1.6 mg/dL 1.6-2.6 BASIC METABOLIC [id number] 01:13:00 Test Item Value Reference Range Comments SODIUM (BEAKER) (test 138 meq/L 136-145 wuqe=485) POTASSIUM (BEAKER) (test 3.7 meq/L 3.5-5.1 txhc=712) CHLORIDE (BEAKER) (test 109 meq/L 98-107 vmzv=281) CO2 (BEAKER) (test 26 meq/L 22-29 krhj=012) BLOOD UREA NITROGEN 15 mg/dL 7-21 (BEAKER) (test qdhj=914) CREATININE (BEAKER) (test 0.74 mg/dL 0.57-1.25 oqnd=962) GLUCOSE RANDOM (BEAKER) 147 mg/dL 70-105 (test iamo=612) CALCIUM (BEAKER) (test 10.0 mg/dL 8.4-10.2 bscj=611) EGFR (BEAKER) (test 76 mL/min/1.73 sq m ESTIMATED GFR IS NOT fgbq=6525) ACCURATE CREATININE CLEARANCE IN PREDICTING GLOMERULAR FILTRATION RATE. ESTIMATED GFR IS NOT APPLICABLE FOR DIALYSIS PATIENTS. HEPATIC FUNCTION [id number] 01:13:00 Test Item Value Reference Range Comments TOTAL PROTEIN (BEAKER) (test picl=529) 5.8 gm/dL 6.0-8.3 ALBUMIN (BEAKER) (test yojq=1509) 3.1 g/dL 3.5-5.0 BILIRUBIN TOTAL (BEAKER) (test ljrz=708) 1.0 mg/dL 0.2-1.2 BILIRUBIN DIRECT (BEAKER) (test tmmd=670) 0.6 mg/dL 0.1-0.5 ALKALINE PHOSPHATASE (BEAKER) (test rdds=748) 75 U/L 40-150 AST (SGOT) (BEAKER) (test vmvd=579) 20 U/L 5-34 ALT (SGPT) (BEAKER) (test morr=801) 18 U/L 6-55 [id number] 01:13:00 Test Item Value Reference Range Comments LIPASE (BEAKER) (test bpww=840) 23 U/L 8-78 RAD, CHEST, 1 VIEW, NON [id number] 23:47:00Reason for exam:->piccShould this be performed at [...] MDReport Verified Date/Time: 08/10/2018 23:47:27 Reading Location: [address] Consult Reading Room POCT-GLUCOSE [id number] 23:29:00 Test Item Value Reference Range Comments POC-GLUCOSE METER (BEAKER) 158 mg/dL 70-110 TESTED AT [facility] [address] [facility] (test icni=3211) [facility] [address] HEMOGLOBIN [id number] 22:17:00 Test Item Value Reference Range Comments HEMOGLOBIN A1C (BEAKER) (test inhc=743) 7.5 % 4.3-6.1 T4, [id number] 20:54:00 Test Item Value Reference Range Comments FREE T4 (BEAKER) (test ympi=568) 0.86 ng/dL 0.70-1.48 TSH/FREE T4 IF [id number] 20:22:00 Test Item Value Reference Range Comments THYROID STIMULATING HORMONE (BEAKER) (test 0.30 uIU/mL 0.35-4.94 vgph=715) [id number] 19:31:00 Test Item Value Reference Range Comments AMMONIA (BEAKER) (test nxny=510) 29 mol/L 18-72 B-TYPE NATRIURETIC FACTOR (BNP)2018-08-10 18:48:00 Test Item Value Reference Range Comments B-TYPE NATRIURETIC PEPTIDE (BEAKER) (test 876 pg/mL 0-100 efdg=880) LACTIC ACID, [id number] 18:47:00 Test Item Value Reference Range Comments LACTATE BLOOD VENOUS (2) 1.0 mmol/L 0.5-2.2 Specimen slightly hemolyzed (BEAKER) (test vouu=2729) POCT-GLUCOSE [id number] 18:30:00 Test Item Value Reference Range Comments POC-GLUCOSE METER (BEAKER) 149 mg/dL 70-110 TESTED AT [facility] [address] [facility] (test djjc=1864) [facility] [address] [id number] 18:27:00 Test Item Value Reference Range Comments PROTIME (BEAKER) (test kfyz=301) 14.8 seconds 11.9-14.2 INR (BEAKER) (test chgp=763) 1.2 <=5.9 PARTIAL THROMBOPLASTIN TIME (BEAKER) (test 30.3 seconds 22.5-36.0 losv=116) Effective 07/15/2018: PT Reference Range ChangeNew: 11.9-14.2 Previous: 11.7- 14.7RECOMMENDED COUMADIN/WARFARIN INR THERAPY RANGESSTANDARD DOSE: 2.0-3.0 Includes: PROPHYLAXIS for venous thrombosis, systemic embolization; TREATMENT for venous thrombosis and/or pulmonary embolus.HIGH RISK: Target INR is2.5-3.5 for patients wiht mechanical heart valves.CBC W/PLT COUNT & AUTO [id number] 18:08:00 Test Item Value Reference Range Comments WHITE BLOOD CELL COUNT (BEAKER) (test xwkm=863) 15.4 K/ L 3.5-10.5 RED BLOOD CELL COUNT (BEAKER) (test pgve=643) 3.77 M/ L 3.93-5.22 HEMOGLOBIN (BEAKER) (test wyga=364) 11.8 GM/DL 11.2-15.7 HEMATOCRIT (BEAKER) (test ddue=509) 36.2 % 34.1-44.9 MEAN CORPUSCULAR VOLUME (BEAKER) (test ltrv=356) 96.0 fL 79.4-94.8 MEAN CORPUSCULAR HEMOGLOBIN (BEAKER) (test 31.3 pg 25.6-32.2 oohy=024) MEAN CORPUSCULAR HEMOGLOBIN CONC (BEAKER) (test 32.6 GM/DL 32.2-35.5 mytt=779) RED CELL DISTRIBUTION WIDTH (BEAKER) (test 16.1 % 11.7-14.4 rofy=916) PLATELET COUNT (BEAKER) (test ihnv=366) 140 K/CU MM 150-450 MEAN PLATELET VOLUME (BEAKER) (test zrjw=908) 11.0 fL 9.4-12.3 NUCLEATED RED BLOOD CELLS (BEAKER) (test 0 /100 WBC 0-0 qyic=450) NEUTROPHILS RELATIVE PERCENT (BEAKER) (test 82 % omvx=195) LYMPHOCYTES RELATIVE PERCENT (BEAKER) (test 8 % srxs=837) MONOCYTES RELATIVE PERCENT (BEAKER) (test 8 % lqqz=204) EOSINOPHILS RELATIVE PERCENT (BEAKER) (test 0 % qizt=695) BASOPHILS RELATIVE PERCENT (BEAKER) (test 0 % emtg=647) NEUTROPHILS ABSOLUTE COUNT (BEAKER) (test 12.69 K/ L 1.56-6.13 xboc=105) LYMPHOCYTES ABSOLUTE COUNT (BEAKER) (test 1.24 K/ L 1.18-3.74 nhze=411) MONOCYTES ABSOLUTE COUNT (BEAKER) (test 1.21 K/ L 0.24-0.36 uezh=179) EOSINOPHILS ABSOLUTE COUNT (BEAKER) (test 0.02 K/ L 0.04-0.36 omzi=866) BASOPHILS ABSOLUTE COUNT (BEAKER) (test 0.04 K/ L 0.01-0.08 whul=655) IMMATURE GRANULOCYTES-RELATIVE PERCENT (BEAKER) 2 % 0-1 (test nred=1330)
[2018-10-15 20:09] LABS: Urine Blood 3+ (NEG); Urine Glucose NEGATIVE (NEG); Urine Protein 2+ (NEG); Urine pH 6.5 (5.0-7.0)
[2018-10-15 20:14] LABS: Absolute Lymphocytes (CBC) 1.8 K/uL (0.7-4.9); Basophils % 0.9 % (0-1.3); Lymphocytes % 26.5 % (15.3-44.8); MPV 8.6 fL (7.6-11.3); RBC Red Blood Cell Count 3.76 M/uL (3.86-4.86)
[2018-10-15 20:25] LABS: Potassium 3.7 mmol/L (3.5-5.1)
[2018-10-15 20:27] LABS: Urine Bacteria <20 /HPF (<20); Urine Culture Reflex Order REFLEXED; Urine RBC >50 /HPF (NONE SEEN)
--- NOTE | 2018-10-15 22:43 | ER ---
Nurse's Notes [facility] Name: Judy Puri Age: 78 yrs Sex: Female : 1940 Arrival Date: 10/15/2018 Time: 18:49 Bed 19 Private MD: Diagnosis: Dysuria-bladder spasm Presentation: 10/15 18:50 Presenting complaint: EMS states: PT STATES NO URINATION OR BOWEL MOVEMENT SINCE LAST HOSPITAL VISIT 5 DAYS AGO. Transition of care: patient was not received from another setting of care. Onset of symptoms is unknown. Risk Assessment: Do you want to hurt yourself or someone else? Patient reports no desire to harm self or others. Initial Sepsis Screen: Does the patient meet any 2 criteria? No. Patient's initial sepsis screen is negative. Does the patient have a suspected source of infection? No. Patient's initial sepsis screen is negative. Care prior to arrival: Glucose check: 110. 18:50 Method Of Arrival: EMS: [facility] bp 18:50 Acuity: JONATHAN 3 bp Triage Assessment: 18:50 General: Appears in no apparent distress. comfortable, obese, Behavior is cooperative, bp appropriate for age, anxious. Pain: Complains of pain in abdomen. EENT: No deficits noted. Neuro: No deficits noted. Cardiovascular: No deficits noted. Respiratory: No deficits noted. GI: Reports constipation. : Reports inability to void, x5 DAYS. Derm: No deficits noted. Musculoskeletal: No deficits noted. Historical: - Allergies: 18:54 Codeine; bp 18:54 Propoxyphene HCl; bp - Home Meds: 20:55 Aspirin Oral [Active]; Celecoxib Oral [Active]; atorvastatin Oral [Active]; gabapentin jb4 Oral [Active]; losartan Oral [Active]; Furosemide Oral [Active]; Glipizide Oral [Active]; Hydrocodone-Acetaminophen Oral [Active]; Metoprolol Tartrate Oral [Active]; Omeprazole Oral [Active]; pantoprazole Oral [Active]; - PMHx: 18:54 Atrial Fib; Diabetes - NIDDM; Hypertension; Myocardial infarction; Arthritis; bp GALLSTONES; CARDIAC STENT; - Immunization history:: Adult Immunizations up to date. - Social history:: Smoking status: Patient/guardian denies using tobacco. - Ebola Screening: : No symptoms or risks identified at this time. Screenin:53 Abuse screen: Denies threats or abuse. Denies injuries from another. Nutritional bp screening: No deficits noted. Tuberculosis screening: No symptoms or risk factors identified. Fall Risk None identified. Assessment: 18:52 General: SEE TRIAGE NOTE. bp 19:00 General: Appears in no apparent distress. comfortable, Behavior is calm, cooperative, jb4 appropriate for age. Pain: Denies pain. Neuro: Level of Consciousness is awake, alert, obeys commands, Oriented to person, place, time, situation. Cardiovascular: Patient's skin is warm and dry. Respiratory: Airway is patent Respiratory effort is even, unlabored, Respiratory pattern is regular, symmetrical. GI: Abdomen is non-distended, obese, Bowel sounds present X 4 quads. Abd is soft X 4 quads Abd is non tender in left lower quadrant Abdomen is tender to palpation in right upper quadrant, left upper quadrant and right lower quadrant Reports constipation, nausea. : Reports inability to void, since 5 days. EENT: No deficits noted. No signs and/or symptoms were reported regarding the EENT system. Derm: Skin is intact, Skin is pink, warm \T\ dry. Musculoskeletal: Circulation, motion, and sensation intact. Range of motion: intact in all extremities. 19:36 Reassessment: Bladder scan reveals 103ml of urine. jb4 20:11 Reassessment: Patient appears in no apparent distress at this time. Patient and/or jb4 family updated on plan of care and expected duration. Pain level reassessed. Patient is alert, oriented x 3, equal unlabored respirations, skin warm/dry/pink. 21:00 Reassessment: Patient appears in no apparent distress at this time. Patient and/or jb4 family updated on plan of care and expected duration. Pain level reassessed. Patient is alert, oriented x 3, equal unlabored respirations, skin warm/dry/pink. 22:00 Reassessment: Patient appears in no apparent distress at this time. Patient and/or jb4 family updated on plan of care and expected duration. Pain level reassessed. Patient is alert, oriented x 3, equal unlabored respirations, skin warm/dry/pink. 22:45 Reassessment: Patient appears in no apparent distress at this time. Patient and/or jb4 family updated on plan of care and expected duration. Pain level reassessed. Patient is alert, oriented x 3, equal unlabored respirations, skin warm/dry/pink. Pt and family verbalized understanding of d/c and follow up instructions. Pt assisted to vehicle via wheelchair. Vital Signs: 18:50 BP 168 / 63; Pulse 63; Resp 20; Temp 98.2; Pulse Ox 95% ; Weight 90.72 kg; bp 20:11 BP 146 / 72; Pulse 57; Resp 16; Pulse Ox 97% on R/A; jb4 21:00 BP 164 / 84; Pulse 57; Resp 16; Pulse Ox 100% on R/A; jb4 22:45 BP 173 / 71; Pulse 54; Resp 16; Pulse Ox 98% on R/A; jb4 ED Course: 18:49 Patient arrived in ED. bp 18:50 Arm band placed on. bp 18:51 Triage completed. bp 18:53 Patient has correct armband on for positive identification. Bed in low position. Call bp light in reach. Side rails up X2. 18:58 Leland Spencer, RN is Primary Nurse. bp 19:00 Neri Pope MD is Attending Physician. kdr 19:25 Todd Loya MD is Attending Physician. gs 19:36 Primary Nurse role handed off by Leland Spencer, NATALI jb4 19:36 Sy Shipley RN is Primary Nurse. jb4 22:31 Cherie Ortiz MD is Referral Physician. gs 22:45 No provider procedures requiring assistance completed. Patient did not have IV access jb4 during this emergency room visit. Administered Medications: No medications were administered Outcome: 22:32 Discharge ordered by . 22:45 Discharged to home ambulatory. jb4 22:45 Condition: stable 22:45 Discharge instructions given to patient, family, Instructed on discharge instructions, follow up and referral plans. Demonstrated understanding of instructions, follow-up care. 23:00 Patient left the ED. jb4 Signatures: Neri Pope MD MD [facility] Sy Shipley, NATALI RN jb4 Todd Loya MD MD Leland Spencer RN RN bp
--- NOTE | 2018-10-15 22:45 | EDPHYS ---
Physician Documentation [facility] Name: Judy Puri Age: 78 yrs Sex: Female : 1940 Arrival Date: 10/15/2018 Time: 18:49 Bed 19 Private MD: ED Physician Todd Loya HPI: 10/15 22:29 This 78 yrs old Female presents to ER via EMS with complaints of Constipation, gs Urinary Retention. 22:29 The patient presents with urinary symptoms, dysuria, hesitancy. Onset: The gs symptoms/episode began/occurred today. Modifying factors: The symptoms are alleviated by nothing, the symptoms are aggravated by nothing. Severity of symptoms: At their worst the symptoms were moderate, in the emergency department the symptoms are unchanged. The patient has experienced similar episodes in the past, a few times. recent stent placement. Historical: - Allergies: 18:54 Codeine; bp 18:54 Propoxyphene HCl; bp - Home Meds: 20:55 Aspirin Oral [Active]; Celecoxib Oral [Active]; atorvastatin Oral [Active]; gabapentin jb4 Oral [Active]; losartan Oral [Active]; Furosemide Oral [Active]; Glipizide Oral [Active]; Hydrocodone-Acetaminophen Oral [Active]; Metoprolol Tartrate Oral [Active]; Omeprazole Oral [Active]; pantoprazole Oral [Active]; - PMHx: 18:54 Atrial Fib; Diabetes - NIDDM; Hypertension; Myocardial infarction; Arthritis; bp GALLSTONES; CARDIAC STENT; - Immunization history:: Adult Immunizations up to date. - Social history:: Smoking status: Patient/guardian denies using tobacco. - Ebola Screening: : No symptoms or risks identified at this time. ROS: 22:29 All other systems are negative. gs Exam: 22:29 Head/Face: Normocephalic, atraumatic. Eyes: Pupils equal round and reactive to light, gs extra-ocular motions intact. Lids and lashes normal. Conjunctiva and sclera are non-icteric and not injected. Cornea within normal limits. Periorbital areas with no swelling, redness, or edema. ENT: Nares patent. No nasal discharge, no septal abnormalities noted. Tympanic membranes are normal and external auditory canals are clear. Oropharynx with no redness, swelling, or masses, exudates, or evidence of obstruction, uvula midline. Mucous membranes moist. Neck: Trachea midline, no thyromegaly or masses palpated, and no cervical lymphadenopathy. Supple, full range of motion without nuchal rigidity, or vertebral point tenderness. No Meningismus. Chest/axilla: Normal chest wall appearance and motion. Nontender with no deformity. No lesions are appreciated. Cardiovascular: Regular rate and rhythm with a normal S1 and S2. No gallops, murmurs, or rubs. Normal PMI, no JVD. No pulse deficits. Respiratory: Lungs have equal breath sounds bilaterally, clear to auscultation and percussion. No rales, rhonchi or wheezes noted. No increased work of breathing, no retractions or nasal flaring. Abdomen/GI: Soft, non-tender, with normal bowel sounds. No distension or tympany. No guarding or rebound. No evidence of tenderness throughout. Back: No spinal tenderness. No costovertebral tenderness. Full range of motion. Skin: Warm, dry with normal turgor. Normal color with no rashes, no lesions, and no evidence of cellulitis. MS/ Extremity: Pulses equal, no cyanosis. Neurovascular intact. Full, normal range of motion. Neuro: Awake and alert, GCS 15, oriented to person, place, time, and situation. Cranial nerves II-XII grossly intact. Motor strength 5/5 in all extremities. Sensory grossly intact. Cerebellar exam normal. Normal gait. 22:29 Constitutional: The patient appears alert, awake. 22:29 Cardiovascular: Edema: 2+ edema to level of left midcalf and right midcalf, chronic. Vital Signs: 18:50 BP 168 / 63; Pulse 63; Resp 20; Temp 98.2; Pulse Ox 95% ; Weight 90.72 kg; bp 20:11 BP 146 / 72; Pulse 57; Resp 16; Pulse Ox 97% on R/A; jb4 21:00 BP 164 / 84; Pulse 57; Resp 16; Pulse Ox 100% on R/A; jb4 22:45 BP 173 / 71; Pulse 54; Resp 16; Pulse Ox 98% on R/A; jb4 MDM: 19:24 Patient medically screened. gs 22:29 Differential diagnosis: urinary tract infection, bladder spasm. Data reviewed: vital gs signs, nurses notes. Counseling: I had a detailed discussion with the patient and/or guardian regarding: the historical points, exam findings, and any diagnostic results supporting the discharge/admit diagnosis, the need for outpatient follow up. Response to treatment: the patient's symptoms have markedly improved after treatment, and as a result, I will discharge patient. Physician consultation: Cherie Ortiz MD wants oxybutinin on gabapentin though. 22:29 ED course: not in retention. 10/15 19:27 Order name: Urine Microscopic Only 10/15 19:39 Order name: CBC with Diff 10/15 19:39 Order name: Basic Metabolic Panel 10/15 19:56 Order name: Urine Dipstick--Ancillary (enter results) ar5 10/15 20:12 Order name: Urine Dipstick-Ancillary; Complete Time: 20:42 EDVT 10/15 20:27 Order name: CBC with Automated Diff; Complete Time: 20:42 EDVT 10/15 19:26 Order name: Misc. Order; Complete Time: 19:36 10/15 19:26 Order name: Bladder Scanner; Complete Time: 19:36 10/15 19:27 Order name: Urine Dipstick-Ancillary (obtain specimen); Complete Time: 20:13 10/15 20:27 Order name: Basic Metabolic Panel; Complete Time: 20:42 EDVT 10/15 20:34 Order name: Urine Microscopic Only; Complete Time: 20:42 EDVT 10/15 20:43 Order name: Misc. Order: current med list any new abx; Complete Time: 20:55 gs Administered Medications: No medications were administered Disposition: 10/15/18 22:32 Discharged to Home. Impression: Dysuria - bladder spasm. - Condition is Stable. - Discharge Instructions: Dysuria. - Medication Reconciliation Form, Thank You Letter, Antibiotic Education, Prescription Opioid Use form. - Follow up: Cherie Ortiz MD; When: 1 - 2 days; Reason: Re-evaluation by your physician. Signatures: Dispatcher [employer] Sy Dixon, NATALI RN [email or web address] Todd Loya MD MD gs Peltier, Brian, RN RN bp Corrections: (The following items were deleted from the chart) 23:00 22:32 10/15/2018 22:32 Discharged to Home. Impression: Dysuria - bladder spasm. [email or web address] Condition is Stable. Forms are Medication Reconciliation Form, Thank You Letter, Antibiotic Education, Prescription Opioid Use. Follow up: Cherie Ortiz; When: 1 - 2 days; Reason: Re-evaluation by your physician. gs
[2018-10-16 01:29] VITALS: TEMP 98.2
[2018-10-16 01:31] VITALS: BP 164/84; O2SAT 100
== END 2018-10-15 23:00 | disposition home or self-care (01) ==
LOC: ER 18:46
DX: N32.89 Other specified disorders of bladder (principal); I10 Essential (primary) hypertension; I25.2 Old myocardial infarction; I48.91 Unspecified atrial fibrillation; E11.9 Type 2 diabetes mellitus without complications; Z95.5 Presence of coronary angioplasty implant and graft; Z88.6 Allergy status to analgesic agent; Z88.8 Allergy status to other drugs, medicaments and biological substances
CPT/HCPCS: 36415; 80048; 81003; 81015; 85025; 87086; 87088; 99283

== ENCOUNTER 2018-10-17 22:00 | Observation (INO) | payer OTHER ==
--- OUTSIDE RECORDS SUMMARY | 2018-10-17 22:03 | XMS REPORT | Continuity of Care Document ---
:1940 Author Organization [facility] Care Team Providers Name Role Phone [facility] Information [employer] Unavailable Unavailable Problems Problem Status Onset Classification Date Comments Source Date Reported M54.12 Active 10/02/19 [place] [id number] [facility] Diabetes Active Problem 10/16/2015 [facility] Diabetes Resolved Problem 10/16/2015 [facility] mellitus [facility] Gastric reflux Active Problem 10/16/2015 [facility] HTN - Resolved Problem 10/16/2015 [facility] Hypertension Active Problem 10/16/2015 [facility] RADICULOPATHY, Active [facility] CERVICAL REGION [place] Medications Medication Details Route [...] 2015 [facility] ELECTROLYTES eGFR 62 [facility] 2015 Comment: The Ortho eGFR is and [...] MYELOGRAM CT SCAN OF CERVICAL SPINE 10/13/2015 [facility] myelogram CT DATE: 10/13/2015 10:08 AM CDT [...] arthrosis to the right with probable fusion. Sbdj-iv-ehwoxesf right foraminal narrowing. C3-C4: Shud-uu-rgvuklqa grade 1 degenerative anterolisthesis of C3 on C4 with a 4 -- 5 mm posterior broad-based disc osteophyte complex indenting ventral cord with posterior cord displacement there and mild central canal narrowing. Cord is mildly flattened. Facet arthrosis greater to the left with hypertrophy noted ohiq-qr-rpslxobs left and mild right foraminal narrowing. C4-C5: Slight degenerative retrolisthesis of C4 on C5 with a 3 -- 4 mm posterior disc osteophyte complex mildly compressing and flattening cord against prominent ligament flavum with mild to moderate ce ntral canal stenosis and mild cord flattening. Qjyv-cv-vmmnqani bilateral foraminal narrowing secondary to facet and uncovertebral joint degeneration C5-C6: Mild degenerative retrolisthesis of C5 on C6 with a 4 -- 5 mm posterior disc osteophyte complex compressing cord against posterior elements. There is rixf-zt-vedhpwcf central canal stenosis with cord flattening there [...] above. Spine cervical EXAM: Cervical MYELOGRAM 10/13/2015 [facility] myelogram DX DATE: 10/13/2015 10:07 AM CDT [...] with mild narrowing subarachnoid space. C3-C4 shows kecw-kx-naihekjd ventral and mild dorsal extradural defects mildly encroaching upon ventral cord with hfvy-rw-hfdpdyos narrowing subarachnoid space C4-C5 shows moderate ventral [...] Type Number For Provider Date Date Visit [facility] Outpatient [id number] Fernie 09/28 09/29 [facility] [id number] Fernie 10/12 10/13 [facility] Sp[facility] Procedures Procedure Code Date Perfomer Comments Source Abdominal [id number] Ortho hysterectomy and Spine Cholecystectomy [id number] [facility] Excision of lesion of [id number] [facility] phalanges of foot and Spine Assessment [...]
--- OUTSIDE RECORDS SUMMARY | 2018-10-17 22:03 | XMS REPORT | Clinical Summary ---
:1940 Author Organization [facility] Address [address] [place] [address] Care Team Providers Name Role Phone Roscoe [...] Anesthesia Event Gastroenterology Chance Duque MD 08/10/2018 [facility] Internal 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[facility]); Severe muscle deconditioning; Atrial fibrillation with RVR ([facility]) 08/10/2018 Travel 08/10/2018 Telephone Internal Medicine Idris Joseph Abdominal Pain MD [place] 08/08/2018 Telephone Internal Medicine Kassy Jurado MD 08/07/2018 Telephone Internal Medicine Idris Joseph Abdominal Pain MD [place] after 10/16/2017 Immunizations Name Dates Previously Given Next Due [...] Not on file Implants Implanted Type Area Paint Maker Device Shelf Model / Identifier Expiration Serial / Date Lot Device Clsr Angio-Seal Vip 6fr [id number] - [id number] Cardiovascular N/A: Groin ST QUANG 11/16/2016 [id number] / Implanted: Qty: 1 on 03/21/2016 by Miguel Ángel Chaudhry MD MED: CARDIAC / SURG [id number] Synergy Stents-Coronary N/A: [place] 01/15/2017 [id number] / Implanted: Qty: 1 on 03/21/2016 by Miguel Ángel Chaudhry MD Coronary SCIENTIFIC / [id number] Procedures Procedure Name Priority Date/Time Associated Comments [...] procedure are in the results section. after 10/16/2017 Results RHYTHM STRIP - SCAN (08/19/2018 11:40 AM CDT)Only the most recent of2 resultswithin the time period is included. Narrative Performed At EKG-SCANNED (08/19/2018 11:40 AM CDT) Narrative Performed At US Renal with Doppler (08/18/2018 4:03 PM CDT) Specimen Narrative Performed At FINAL REPORT TopPatch Renal ultrasound and Duplex Doppler ultrasound of [...] MD Report Verified Date/Time:08/18/2018 16:58:13 Reading Location: [address] Radiology Reading Room Procedure Note Interface, [...] Report Verified Date/Time: 08/18/2018 16:58:13 Reading Location: [address] Radiology Reading Room Performing Organization Address City/State/Zipcode Phone Number [employer] POC-Glucose meter (08/18/2018 7:41 AM CDT)Only the most recent of29 resultswithin the time period is included. POC-Glucose Meter 141 (H)Comment: TESTED AT 70 - 110 mg/dL [facility] [address] [facility] [address] Specimen Blood Performing Organization Address City/[facility]/Zipcode Phone Number [address] [address] [phone] [place] CBC (Hemogram only) (08/18/2018 5:01 AM CDT)Only the most recent of7 resultswithin the time period is included. WBC 11.7 (H) 3.5 - 10.5 K/L [facility] RBC 3.29 (L) 3.93 - 5.22 M/L [facility] Hemoglobin 10.4 (L) 11.2 - 15.7 GM/DL [facility] Hematocrit 31.8 (L) 34.1 - 44.9 % [facility] MCV 96.7 (H) 79.4 - 94.8 fL [facility] MCH 31.6 25.6 - 32.2 pg [facility] MCHC 32.7 32.2 - 35.5 GM/DL [facility] RDW 16.6 (H) 11.7 - 14.4 % [facility] Platelets 175 150 - 450 K/CU MM [facility] MPV 11.4 9.4 - 12.3 fL [facility] nRBC 0 0 - 0 /100 WBC [facility] Specimen Blood Performing Organization Address City/[facility]/Zipcode Phone Number [address] [address] [phone] CENTER Magnesium (08/18/2018 5:01 AM CDT)Only the most recent of8 resultswithin the time period is included. Magnesium 1.9 1.6 - 2.6 mg/dL [facility] Specimen Blood Performing Organization Address City/[facility]/Zipcode Phone Number [facility] [address] [address] [place] Hepatic function panel (08/18/2018 5:01 AM CDT)Only the most recent of8 resultswithin the time period is included. Protein, Total 5.4 (L) 6.0 - 8.3 gm/dL [facility] Albumin 2.9 (L) 3.5 - 5.0 g/dL [facility] Total Bilirubin 0.4 0.2 - 1.2 mg/dL [facility] Bilirubin, Direct 0.2 0.1 - 0.5 mg/dL [facility] Alkaline Phosphatase 73 40 - 150 U/L [facility] AST 20 5 - 34 U/L [facility] ALT 17 6 - 55 U/L [facility] Specimen Blood Performing Organization Address City/State/[place] Phone Number [address] [address] [place] Basic Metabolic Panel (08/18/2018 5:01 AM CDT)Only the most recent of8 resultswithin the time period is included. Sodium 134 (L) 136 - 145 meq/L [facility] Potassium 4.2 3.5 - 5.1 meq/L [facility] Chloride 103 98 - 107 meq/L [facility] CO2 28 22 - 29 meq/L [facility] BUN 12 7 - 21 mg/dL [facility] Creatinine 0.74 0.57 - 1.25 mg/dL [facility] Glucose 124 (H) 70 - 105 mg/dL [facility] Calcium 9.9 8.4 - 10.2 mg/dL [facility] EGFR 76Comment: ESTIMATED GFR IS mL/min/1.73 sq m [facility] NOT ACCURATE [facility] CLEARANCE IN PREDICTING GLOMERULAR FILTRATION RATE. ESTIMATED GFR IS NOT APPLICABLE FOR DIALYSIS PATIENTS. Specimen Blood Performing Organization Address City/State/Zipcode Phone Number [facility] [address] [place] [address] [phone] CENTER NM myocardial perfusion PET (rest and stress) (08/17/2018 2:17 PM CDT) Specimen Narrative Performed At FINAL REPORT [facility] PROCEDURE: MYOCARDIAL PERFUSION PET IMAGING (Rest/Stress) CPT CODE: 85728 INDICATION: Define extent of known CAD, chest [...] MD Report Verified Date/Time:08/17/2018 15:22:38 Reading Location: [address] Reading Room Procedure Note Interface, External Ris In - 08/17/2018 3:24 PM CDT FINAL REPORT PROCEDURE: MYOCARDIAL PERFUSION PET IMAGING (Rest/Stress) CPT CODE: 68970 INDICATION: Define extent of known CAD, chest [...] Report Verified Date/Time: 08/17/2018 15:22:38 Reading Location: [address] Reading Room Performing Organization Address City/State/Zipcode [...] 2:32:36 PM Confirmed by MD TEE JORGE ([id number]) on 09/24/2018 2:05:23 PM Procedure Note Interface, [...] 2:32:36 PM Confirmed by MD TEE JORGE ([id number]) on 09/24/2018 2:05:23 PM Performing Organization Address City/State/Zipcode Phone Number GE MUSE CBC with platelet count + automated diff (08/16/2018 12:56 PM CDT)Only the most recent of2 resultswithin the time period is included. WBC 12.9 (H) 3.5 - 10.5 K/L [facility] RBC 3.74 (L) 3.93 - 5.22 M/L [facility] Hemoglobin 11.6 11.2 - 15.7 GM/DL [facility] Hematocrit 35.0 34.1 - 44.9 % [facility] MCV 93.6 79.4 - 94.8 fL [facility] MCH 31.0 25.6 - 32.2 pg [facility] MCHC 33.1 32.2 - 35.5 GM/DL [facility] RDW 16.0 (H) 11.7 - 14.4 % [facility] Platelets 165 150 - 450 K/CU MM [facility] MPV 10.1 9.4 - 12.3 fL [facility] nRBC 0 0 - 0 /100 WBC [facility] % Neutros 84 % [facility] % Lymphs 7 % [facility] % Monos 7 % [facility] % Eos 2 % [facility] % Baso 0 % [facility] # Neutros 10.89 (H) 1.56 - 6.13 K/L [facility] # Lymphs 0.90 (L) 1.18 - 3.74 K/L [facility] # Monos 0.84 (H) 0.24 - 0.36 K/L [facility] # Eos 0.20 0.04 - 0.36 K/L [facility] # Baso 0.05 0.01 - 0.08 K/L [facility] Immature 1 0 - 1 % [facility] Granulocytes-NEA [facility] CENTER Specimen Blood Performing Organization Address City/State/Zipcode Phone Number [facility] [address] [place] [address] CENTER Comprehensive metabolic panel (08/16/2018 12:56 PM CDT) Protein, Total 5.4 (L) 6.0 - 8.3 gm/dL [facility] Albumin 2.9 (L) 3.5 - 5.0 g/dL [facility] Alkaline Phosphatase 86 40 - 150 U/L [facility] Total Bilirubin 0.4 0.2 - 1.2 mg/dL [facility] Sodium 135 (L) 136 - 145 meq/L [facility] Potassium 3.7 3.5 - 5.1 meq/L [facility] Chloride 102 98 - 107 meq/L [facility] CO2 28 22 - 29 meq/L [facility] BUN 10 7 - 21 mg/dL [facility] Creatinine 0.83 0.57 - 1.25 mg/dL [facility] Glucose 150 (H) 70 - 105 mg/dL [facility] Calcium 10.0 8.4 - 10.2 mg/dL [facility] AST 25 5 - 34 U/L [facility] ALT 23 6 - 55 U/L [facility] EGFR 66Comment: ESTIMATED GFR mL/min/1.73 sq m [facility] IS NOT ACCURATE [facility] CREATININE CLEARANCE IN PREDICTING GLOMERULAR FILTRATION RATE. ESTIMATED GFR IS NOT APPLICABLE FOR DIALYSIS PATIENTS. Specimen Blood Performing Organization Address City/State/Zipcode Phone Number [facility] [address] [place] [address] CENTER REPORT OF PROCEDURE - ENDOSCOPY URL (08/15/2018 5:30 PM CDT) Narrative Performed At [place] ERCP (08/15/2018 4:55 PM CDT) Specimen Narrative Performed At FINAL REPORT [facility] Fluoroscopy, less than 1 hour History:ERCP Comparison: none Findings: Fluoroscopic assistance was provided during ERCP.Fluoroscopic images taken were interpreted by the referring clinician.Please see separate procedure note for full details. Total Fluoroscopy time: 79.2 seconds Number of fluoroscopic images obtained: Four Impression: Fluoroscopy assistance as described above. Signed: Enio Ley MD Report Verified Date/Time:08/15/2018 17:37:26 Reading Location: [facility] C0X Ortho Consult Reading Room Procedure Note [...] Report Verified Date/Time: 08/15/2018 17:37:26 Reading Location: [facility] C013X Ortho Consult Reading Room Performing Organization Address City/State/Zipcode Phone Number [facility]IS Tissue Exam (08/15/2018 4:52 PM CDT) Case Report Surgical Pathology Report Case: [id number] [facility] Authorizing Provider:Roddy Bernardected: 08/15/[address] [place] [address] Ordering Location: [address] Received: 08/17/2018 0800 Service Pathologist: Joanne Gu MD Specimens: A) - Duodenal, ULCERS BX B) - Biopsy, Gastric, BX DIAGNOSIS This final report is issued to give the result of immunohistochemical study for Helicobacter pylori on specimen B: [facility] A. DUODENUM, ULCERS, ENDOSCOPIC BIOPSY: - SEVERE [...] MALIGNANCY NOTED Signing Pathologist Direct Phone Line: [phone] CPT Code(s) 41127 X 2; 36257; 39688 [facility] CLINICAL HISTORY Common bile duct stones [facility] SPECIMEN SOURCE A. Duodenal ulcers biopsy; B. [facility] Biopsy, gastric biopsy [facility] GROSS DESCRIPTION The case is received in two parts both labeled with the patient's name, Judy Calhoun, date of 1940 and accession number [id number] which corresponds to accompanying requisition page labeled with the same name and accession number. [facility] Part A is received in formalin labeled [...] in cassette B1. RP/pl MICROSCOPIC DESCRIPTION PERFORMED [facility] SPECIAL STUDIES The interpretation of this case included the use of immunohistochemistry or special stains. [facility] WARTHIN-STARRY; HELICOBACTER PYLORI [facility] Control Slides Examined: In-house known positive controls were evaluated along with the test tissue. These control slides run alongside of the patients sample show appropriate staining. Internal posit emily and negative controls when available are evaluated Immunohistochemistry technical testing was performed at [facility], Pathology Laboratory where it was [...] (specimen) Performing Organization Address City/State/Zipcode Phone Number [place] [phone] [place] [address] brain without IV contrast (08/12/2018 11:55 AM CDT) Specimen Narrative Performed At FINAL REPORT Top[facility] CT, BRAIN, WITHOUT CONTRAST CLINICAL INDICATION:Confusion/delirium, altered [...] MD Report Verified Date/Time:08/12/2018 12:57:37 Reading Location: [facility] Reading Room Procedure Note Interface, External Ris [...] Report Verified Date/Time: 08/12/2018 12:57:37 Reading Location: [facility] Radiology Reading Room Performing Organization Address City/State/Zipcode Phone Number [employer] CT abdomen/pelvis without & with IV contrast (08/12/2018 11:55 AM CDT) Specimen Narrative Performed At FINAL REPORT [facility] CT abdomen and pelvis without and [...] MD Report Verified Date/Time:08/12/2018 13:32:12 Reading Location: [facility] Diagnostic Imaging Reading Room - [place] [address] Procedure Note Interface, External Ris In - [...] Report Verified Date/Time: 08/12/2018 13:32:12 Reading Location: [facility] Diagnostic Imaging Reading Room - [place] [address] Performing Organization Address City/State/Zipcode Phone Number RIS Lactic acid, venous (08/12/2018 4:36 AM CDT)Only the most recent of2 resultswithin the time period is included. Lactate, Venous 0.9Comment: Specimen 0.5 - 2.2 mmol/L [facility] slightly hemolyzed [facility] Specimen Blood Performing Organization Address City/[facility]/Zipcode Phone Number [address] [address] CENTER Folate, RBC (08/12/2018 4:36 AM CDT) Folate, Rbc >1000 >280 ng/mL RBC [facility] Specimen Blood Narrative Performed At Performing Lab [facility] EZ [facility] [address] [place] [address] Jeirca Cooney MD, PhD, JACKIE Performing Organization Address City/[facility] Phone Number [facility] [place] [address] INCORPORATED [address] [facility] Vitamin B12 (08/12/2018 4:35 AM CDT) Vitamin B12 1,063 (H) 213 - 816 pg/mL [facility] Specimen Blood Performing Organization Address [facility] Phone Number [address] [address] [phone] CENTER Troponin I (08/12/2018 12:51 AM CDT)Only the most recent of3 resultswithin the time period is included. Troponin I 0.02 0.00 - 0.03 ng/mL [facility] Specimen Blood Narrative Performed At Troponin I (TnI) levels must be interpreted [facility] in the context of the presenting symptoms [...] disease, and persistent tachyarrhythmia. Performing Organization Address [facility] Phone Number [address] [address] [phone] [place] ECHOCARDIOGRAM REPORT - SCAN (08/11/2018 9:11 PM CDT) Narrative Performed At Procalcitonin (08/11/2018 8:46 PM CDT) Procalcitonin <0.05 <0.05 ng/mL [facility] Specimen Blood Narrative Performed At SEPSIS RISK (ng/mL) [facility] Low:0.05-0.50 Intermediate: 0.51-2.00 High: >=2.01 Performing Organization Address [facility] Cent[facility] Phone Number [place] [phone] [place] [address] CENTER ECG 12 lead (08/11/2018 3:42 PM CDT)Only the most recent of2 resultswithin the time period is included. Specimen Narrative Performed At Ventricular Rate 71 BPM [facility] Atrial Rate 71 BPM P-R Interval 140 ms QRS Duration 78 ms Q-T Interval 326 ms QTC Calculation(Bazett) 354 ms P Linden 1 degrees R Linden 31 degrees T Linden 124 degrees Normal sinus rhythm Nonspecific ST [...] 326 ms QTC Calculation(Bazett) 354 ms P Linden 1 degrees R Linden 31 degrees T Linden 124 degrees Normal sinus rhythm Nonspecific ST and T wave abnormality Abnormal ECG When compared with ECG of 10-AUG-2018 16:46, No significant change was found Confirmed by Nicole OROZCO MICHAEL ([id number]) on 08/12/2018 8:00:23 AM Performing Organization Address [facility] Phone Number [employer] XR abdomen / KUB 1 view (08/11/2018 10:50 AM CDT) Specimen Narrative Performed At FINAL REPORT [facility] CLINICAL HISTORY: abdominal pain TECHNIQUE: Supine abdomen COMPARISON: CT 03/21/2016 IMPRESSION: The bowel gas pattern is nonspecific. Free air and air-fluid levels are not seen but cannot be definitively excluded on the supine view. Right upper quadrant surgical clips are again seen. Right lower abdominal hernia repair mesh is again seen. Signed: Ken Bunn MD Report Verified Date/Time:08/11/2018 11:42:12 Reading Location: [facility] Radiology Reading Room Procedure Note Interface, External [...] Report Verified Date/Time: 08/11/2018 11:42:12 Reading Location: [facility] Radiology Reading Room Performing Organization Address City/[facility] Phone Number [facility] POCT-HEMATOCRIT (08/11/2018 9:36 AM CDT) POC-Hematocrit 34 (L)Comment: TESTED AT 36 - 45 % [address] [address] Specimen Blood Performing Organization Address [facility] [place] [place] Phone Number [address] [phone] [place] POCT-HEMOGLOBIN (08/11/2018 9:36 AM CDT) POC-Hemoglobin 11.6 (L)Comment: TESTED AT 12.0 - 15.0 g/dL [address] [address]PI[place] AT [address] [address] Specimen Blood Performing Organization Address [facility] [place] [place] Phone Number [address] [phone] [place] POCT-GLUCOSE (08/11/2018 9:36 AM CDT) POC-Glucose 165 (H)Comment: TESTED AT 70 - 110 mg/dL [address] [address] Specimen Blood Performing Organization Address [facility] [place] [place] Phone Number [address] [phone] CENTER POC-Sodium (08/11/2018 9:36 AM CDT) POC-Sodium 142Comment: TESTED AT [facility] 135 - 148 meq/L [address] [address] Specimen Blood Performing Organization Address City/[facility]/Zipcode Phone Number [address] [address] [place] POC-Potassium (08/11/2018 9:36 AM CDT) POC-Potassium 3.6Comment: TESTED AT [facility] 3.6 - 5.5 meq/L [address] [address] Specimen Blood Performing Organization Address City/[facility]/Zipcode Phone Number [address] [address] [place] POC-Calcium ionized (08/11/2018 9:36 AM CDT) POC-Calcium Ionized 1.50 (H)Comment: 1.12 - 1.27 mmol/L [facility] TESTED AT [address] [address] Specimen Blood Performing Organization Address City/[facility] Phone Number [address] [address] [phone] [place] POC-Blood gases, venous (08/11/2018 9:36 AM CDT) Temp. Celsius-POC 36.9 [facility] FIO2-POC 28Comment: TESTED AT [address] [address] pH, Venous-POC 7.344 7.320 - 7.420 [facility] PCO2, Venous-POC 48.8 41.0 - 51.0 mm Hg [facility] PO2, Venous-POC 36.0 25.0 - 40.0 mm Hg [facility] SO2, Venous-POC 66.0 40.0 - 70.0 % [facility] HCO3, Venous-POC 26.6 21.0 - 29.0 meq/L [facility] BE, Venous-POC 1.0 -2.0 - 3.0 meq/L [facility] Specimen Blood Performing Organization Address City/[facility]/Zipcode Phone Number [address] [phone] [place] POC-Lactic Acid, Venous (08/11/2018 9:32 AM CDT) POC-Lactic Acid, Venous 0.9Comment: TESTED AT 0.9 - 1.7 mmol/L [address] [address] Specimen Blood Performing Organization Address [facility] Cent[facility] Phone Number [address] [address] [place] Urinalysis w/Microscopic + Reflex to Culture (08/11/2018 7:48 AM CDT) Color, UA Yellow [facility] Clarity, UA Clear [facility] Specific Raymond, UA 1.012 1.001 - 1.035 [facility] pH, UA 6.0 5.0 - 8.0 [facility] Protein, UA 10 mg/dL (A) Negative [facility] Glucose, UA 50 mg/dL (A) Negative [facility] Ketones, UA 20 mg/dL (A) Negative [facility] Bilirubin, UA Negative Negative [facility] Blood, UA Moderate (A) Negative [facility] Nitrite, UA Negative Negative [facility] Leukocytes, UA Negative Negative [facility] Urobilinogen, UA 0.2 0.2 - 1.0 mg/dL [facility] RBC, UA 105 /HPF [facility] WBC, UA 2 /HPF [facility] Specimen Source [facility] Specimen Urine Performing Organization Address City/[facility]/Zipcode Phone Number [facility] [address] [place] [phone] [place] Blood Culture - Routine (Right Venipuncture) (08/11/2018 12:25 AM CDT)Only the most recent of2 resultswithin the time period is included. Result No growth in 5 days [facility] Specimen Blood Performing Organization Address City/[facility]/Zipcode Phone Number [address] [address] [phone] [place] Lipase (08/11/2018 12:24 AM CDT) Lipase 23 8 - 78 U/L [facility] Specimen Blood Performing Organization Address [facility] Cent[facility] Phone Number [address] [address] IRENE XR chest 1 view portable / bedside [...] MD Report Verified Date/Time:08/10/2018 23:47:27 Reading Location: [facility] C013W Consult Reading Room Procedure Note Interface, [...] Report Verified Date/Time: 08/10/2018 23:47:27 Reading Location: [facility] B1 C013W Consult Reading Room Performing Organization Address City/State/Zipcode Phone Number [facility] TSH/Free T4 If Indicated (08/10/2018 7:00 PM CDT) TSH 0.30 (L) 0.35 - 4.94 uIU/mL [facility] Specimen Blood Performing Organization Address City/[facility] Cent[facility] Phone Number [address] [address] [phone] CENTER T4, free (08/10/2018 7:00 PM CDT) Free T4 0.86 0.70 - 1.48 ng/dL [facility] Specimen Blood Performing Organization Address [facility] Phone Number [address] [address] CENTER Ammonia (08/10/2018 7:00 PM CDT) Ammonia 29 18 - 72 mol/L [facility] Specimen Blood Performing Organization Address [facility] Phone Number [address] [address] [phone] CENTER PT/aPTT (08/10/2018 5:44 PM CDT) Protime 14.8 (H) 11.9 - 14.2 seconds [facility] INR 1.2 <=5.9 [facility] PTT 30.3 22.5 - 36.0 seconds [facility] Specimen Blood Narrative Performed At Effective 07/15/2018: PT Reference Range [facility] Change New: 11.9-14.2Previous: 11.7-14.7 RECOMMENDED COUMADIN/WARFARIN INR THERAPY RANGES STANDARD DOSE: 2.0-3.0Includes: PROPHYLAXIS for venous thrombosis, systemic embolization; TREATMENT for venous thrombosis and/or pulmonary embolus. HIGH RISK: Target INR is 2.5-3.5 for patients wiht mechanical heart valves. Performing Organization Address City/[facility]/Zipcode Phone Number [address] [address] [phone] CENTER Hemoglobin A1c (08/10/2018 5:44 PM CDT) Hemoglobin A1C 7.5 (H) 4.3 - 6.1 % [facility] Specimen Blood Performing Organization Address [facility] Cent[facility] Phone Number [address] [address] CENTER B-type Natriuretic Factor (BNP) (08/10/2018 5:43 PM CDT) BNP 876 (H) 0 - 100 pg/mL [facility] Specimen Blood Performing Organization Address [facility] Centercoil Phone Number [address] [phone] IRENE 2D Echo W/Doppler(CW/PW/Color) (08/10/2018 4:59 PM CDT) Ejection Fraction 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 Charlene Vega [facility] Karan Phillip MD RD Physician [...] of Study 08/10/2018 Gender Female Visit Number [id number] Race Unknown Room Number 722 Number Date of 1940 Referring Physician Shira Person Age 78 year(s) 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 Charleneerma Vega [facility] Admissions Rn Ivonne Brown, Interpreting Stevie Santoro MD [facility] Physician Procedure Type of Study [...] Number [id number] CPACS after 10/16/2017 Insurance Payer Benefit Plan / Group Subscriber ID Type Phone Address [employer] xxxxxxxx Maps Contracted ([place]) [place] [address] Advance Directives For more information, please contact:[address] [phone] Code Status Date Activated Date Inactivated Comments Full Code 08/10/2018 2:16 PM 08/18/2018 7:36 PM This code status was determined by: Patient Full Code 03/21/2016 6:40 PM 03/26/2016 4:41 PM This code status was determined by: Patient
--- OUTSIDE RECORDS SUMMARY | 2018-10-17 22:04 | XMS REPORT ---
:1940 [facility] [address] [place] [id number] Care Team Providers Name Role Phone RYAN [...] PATIENT ID: WITH DOPPLER 16:58:00 exam:->hypertensionShould this [id number] Renal be performed at the ultrasound and [...] MDReport Verified Date/Time: 08/18/2018 16:58:13 [place] Location: [address] Radiology [place] UE EXAM 2018-08-18 Surgical Pathology Report 14:09:00 Case: [id number] Authorizing Provider: Roddy Bernard Collected: 08/15/2018 1652 Ordering Location: [address] Received: 08/17/2018 0800 Service Pathologist: Joanne [...] MALIGNANCY NOTED Signing Pathologist Direct Phone Line: [phone] y signed by Joanne Gu MD on 08/18/2018 at 2:09 PMPreliminary result electronically signed by Joanne Gu MD on 08/17/2018 at 6:32 [id number] X 2; [id number]; [id number] bile duct stonesA. Duodenal ulcers biopsy; B. [...] evaluated Immunohistochemistry technical testing was performed at [facility], Pathology Laboratory where it was developed [...] 141 mg/dL 70-[address] [facility] [address] [facility] fkzw=3587) [facility] [address] [id number] 06:53:00 Test Item Value Reference Range Comments MAGNESIUM (BEAKER) (test apak=881) 1.9 mg/dL 1.6-2.6 BASIC METABOLIC [id number] 06:53:00 Test Item Value Reference Range Comments SODIUM (BEAKER) (test 134 meq/L 136-145 lgze=985) POTASSIUM (BEAKER) (test 4.2 meq/L 3.5-5.1 avlr=975) CHLORIDE (BEAKER) (test 103 meq/L 98-107 wgxl=985) CO2 (BEAKER) (test 28 meq/L 22-29 ewce=830) BLOOD UREA NITROGEN 12 mg/dL 7-21 (BEAKER) (test ehjj=679) CREATININE (BEAKER) (test 0.74 mg/dL 0.57-1.25 rigq=533) GLUCOSE RANDOM (BEAKER) 124 mg/dL 70-105 (test ddoy=801) CALCIUM (BEAKER) (test 9.9 mg/dL 8.4-10.2 mwbd=654) EGFR (BEAKER) (test 76 mL/min/1.73 sq m ESTIMATED GFR IS NOT bbvq=3593) ACCURATE CREATININE CLEARANCE IN PREDICTING GLOMERULAR FILTRATION RATE. ESTIMATED GFR IS NOT APPLICABLE FOR DIALYSIS PATIENTS. HEPATIC FUNCTION [id number] 06:53:00 Test Item Value Reference Range Comments TOTAL PROTEIN (BEAKER) (test qnxa=514) 5.4 gm/dL 6.0-8.3 ALBUMIN (BEAKER) (test nhhe=4585) 2.9 g/dL 3.5-5.0 BILIRUBIN TOTAL (BEAKER) (test vebc=115) 0.4 mg/dL 0.2-1.2 BILIRUBIN DIRECT (BEAKER) (test bnqe=485) 0.2 mg/dL 0.1-0.5 ALKALINE PHOSPHATASE (BEAKER) (test zirj=857) 73 U/L 40-150 AST (SGOT) (BEAKER) (test qcmz=017) 20 U/L 5-34 ALT (SGPT) (BEAKER) (test cwbd=400) 17 U/L 6-55 CBC (HEMOGRAM ONLY)2018-08-18 06:22:00 Test Item Value Reference Range Comments WHITE BLOOD CELL COUNT (BEAKER) (test gyzz=951) 11.7 K/ L 3.5-10.5 RED BLOOD CELL COUNT (BEAKER) (test ofgh=233) 3.29 M/ L 3.93-5.22 HEMOGLOBIN (BEAKER) (test tzhx=242) 10.4 GM/DL 11.2-15.7 HEMATOCRIT (BEAKER) (test cmqi=954) 31.8 % 34.1-44.9 MEAN CORPUSCULAR VOLUME (BEAKER) (test mody=483) 96.7 fL 79.4-94.8 MEAN CORPUSCULAR HEMOGLOBIN (BEAKER) (test 31.6 pg 25.6-32.2 gtus=608) MEAN CORPUSCULAR HEMOGLOBIN CONC (BEAKER) (test 32.7 GM/DL 32.2-35.5 mwmx=122) RED CELL DISTRIBUTION WIDTH (BEAKER) (test 16.6 % 11.7-14.4 zyhd=156) PLATELET COUNT (BEAKER) (test gyvf=737) 175 K/CU MM 150-450 MEAN PLATELET VOLUME (BEAKER) (test errr=948) 11.4 fL 9.4-12.3 NUCLEATED RED BLOOD CELLS (BEAKER) (test 0 /100 WBC 0-0 qdfh=354) POCT-GLUCOSE [id number] 23:08:00 Test Item Value Reference Range Comments POC-GLUCOSE METER (BEAKER) 163 mg/dL 70-110 TESTED AT [place] [id number] [facility] (test wfwv=9750) [place] [address] POCT-GLUCOSE [id number] 17:26:00 Test Item Value Reference Range Comments POC-GLUCOSE METER (BEAKER) 131 mg/dL 70-110 TESTED AT [address] (test anxj=9861) [place] [address] PET, CARDIAC PERFUSION MULTIPLE STUDIES, REST AND [id number] 15:22: 00Reason for exam:->Exclude ischemiaFINAL REPORT PROCEDURE: MYOCARDIAL PERFUSION PET IMAGING (Rest/Stress)CPT CODE: 78808 INDICATION: Define extent of known CAD, chest [...] MDReport Verified Date/Time: 08/17/2018 15:22:38 [place] Location: [address] [place] Room POCT-GLUCOSE [id number] 13:27:00 Test Item Value Reference Range Comments POC-GLUCOSE METER (BEAKER) 130 mg/dL 70-110 TESTED AT [address] (test yezf=5550) [facility] [address] CBC (HEMOGRAM ONLY)2018-08-17 07:52:00 Test Item Value Reference Range Comments WHITE BLOOD CELL COUNT (BEAKER) (test wody=781) 10.6 K/ L 3.5-10.5 RED BLOOD CELL COUNT (BEAKER) (test toub=045) 3.45 M/ L 3.93-5.22 HEMOGLOBIN (BEAKER) (test elop=892) 10.8 GM/DL 11.2-15.7 HEMATOCRIT (BEAKER) (test vxgz=328) 32.9 % 34.1-44.9 MEAN CORPUSCULAR VOLUME (BEAKER) (test ffer=339) 95.4 fL 79.4-94.8 MEAN CORPUSCULAR HEMOGLOBIN (BEAKER) (test 31.3 pg 25.6-32.2 zqpu=573) MEAN CORPUSCULAR HEMOGLOBIN CONC (BEAKER) (test 32.8 GM/DL 32.2-35.5 ejvt=022) RED CELL DISTRIBUTION WIDTH (BEAKER) (test 16.1 % 11.7-14.4 rqhj=865) PLATELET COUNT (BEAKER) (test xsgv=135) 177 K/CU MM 150-450 MEAN PLATELET VOLUME (BEAKER) (test duno=741) 11.2 fL 9.4-12.3 NUCLEATED RED BLOOD CELLS (BEAKER) (test 0 /100 WBC 0-0 sagq=686) [id number] 07:43:00 Test Item Value Reference Range Comments MAGNESIUM (BEAKER) (test rwfe=306) 1.6 mg/dL 1.6-2.6 BASIC METABOLIC [id number] 07:43:00 Test Item Value Reference Range Comments SODIUM (BEAKER) (test 136 meq/L 136-145 dasa=854) POTASSIUM (BEAKER) (test 3.6 meq/L 3.5-5.1 qjls=656) CHLORIDE (BEAKER) (test 102 meq/L 98-107 mgul=316) CO2 (BEAKER) (test 29 meq/L 22-29 gzwj=688) BLOOD UREA NITROGEN 10 mg/dL 7-21 (BEAKER) (test nyux=069) CREATININE (BEAKER) (test 0.74 mg/dL 0.57-1.25 kftk=109) GLUCOSE RANDOM (BEAKER) 134 mg/dL 70-105 (test oood=284) CALCIUM (BEAKER) (test 9.9 mg/dL 8.4-10.2 zfwf=173) EGFR (BEAKER) (test 76 mL/min/1.73 sq m ESTIMATED GFR IS NOT zdcv=5312) ACCURATE CREATININE CLEARANCE IN PREDICTING GLOMERULAR FILTRATION RATE. ESTIMATED GFR IS NOT APPLICABLE FOR DIALYSIS PATIENTS. HEPATIC FUNCTION [id number] 07:43:00 Test Item Value Reference Range Comments TOTAL PROTEIN (BEAKER) (test inov=946) 5.2 gm/dL 6.0-8.3 ALBUMIN (BEAKER) (test ouhz=4426) 2.8 g/dL 3.5-5.0 BILIRUBIN TOTAL (BEAKER) (test ogqm=447) 0.5 mg/dL 0.2-1.2 BILIRUBIN DIRECT (BEAKER) (test fzby=208) 0.3 mg/dL 0.1-0.5 ALKALINE PHOSPHATASE (BEAKER) (test ddtn=215) 76 U/L 40-150 AST (SGOT) (BEAKER) (test kqgp=858) 21 U/L 5-34 ALT (SGPT) (BEAKER) (test xhsz=901) 17 U/L 6-55 POCT-GLUCOSE [id number] 07:24:00 Test Item Value Reference Range Comments POC-GLUCOSE METER (BEAKER) 144 mg/dL 70-[address] [facility] [address] [facility] (test gyqc=2419) [facility] [address] POCT-GLUCOSE [id number] 23:39:00 Test Item Value Reference Range Comments POC-GLUCOSE METER (BEAKER) 159 mg/dL 70-110 TESTED AT [address] (test qqjn=2320) [facility] [address] POCT-GLUCOSE [id number] 17:20:00 Test Item Value Reference Range Comments POC-GLUCOSE METER (BEAKER) 168 mg/dL 70-110 TESTED AT [address] (test oigy=3830) [facility] [address] COMPREHENSIVE METABOLIC [id number] 13:35:00 Test Item Value Reference Range Comments TOTAL PROTEIN (BEAKER) 5.4 gm/dL 6.0-8.3 (test baof=692) ALBUMIN (BEAKER) (test 2.9 g/dL 3.5-5.0 nfuz=2364) ALKALINE PHOSPHATASE 86 U/L 40-150 (BEAKER) (test eztm=604) BILIRUBIN TOTAL (BEAKER) 0.4 mg/dL 0.2-1.2 (test qlar=667) SODIUM (BEAKER) (test 135 meq/L 136-145 olcy=466) POTASSIUM (BEAKER) (test 3.7 meq/L 3.5-5.1 yhdx=702) CHLORIDE (BEAKER) (test 102 meq/L 98-107 djow=962) CO2 (BEAKER) (test 28 meq/L 22-29 drnx=893) BLOOD UREA NITROGEN 10 mg/dL 7-21 (BEAKER) (test tfsz=553) CREATININE (BEAKER) (test 0.83 mg/dL 0.57-1.25 kopn=898) GLUCOSE RANDOM (BEAKER) 150 mg/dL 70-105 (test qgxj=027) CALCIUM (BEAKER) (test 10.0 mg/dL 8.4-10.2 vgoe=766) AST (SGOT) (BEAKER) (test 25 U/L 5-34 rksq=971) ALT (SGPT) (BEAKER) (test 23 U/L 6-55 kqux=174) EGFR (BEAKER) (test 66 mL/min/1.73 sq m ESTIMATED GFR IS NOT nnrk=8426) ACCURATE CREATININE CLEARANCE IN PREDICTING GLOMERULAR FILTRATION RATE. ESTIMATED GFR IS NOT APPLICABLE FOR DIALYSIS PATIENTS. CBC W/PLT COUNT & AUTO [id number] 13:14:00 Test Item Value Reference Range Comments WHITE BLOOD CELL COUNT (BEAKER) (test ezpl=680) 12.9 K/ L 3.5-10.5 RED BLOOD CELL COUNT (BEAKER) (test fzdr=777) 3.74 M/ L 3.93-5.22 HEMOGLOBIN (BEAKER) (test jqrc=245) 11.6 GM/DL 11.2-15.7 HEMATOCRIT (BEAKER) (test tgnj=618) 35.0 % 34.1-44.9 MEAN CORPUSCULAR VOLUME (BEAKER) (test rvse=332) 93.6 fL 79.4-94.8 MEAN CORPUSCULAR HEMOGLOBIN (BEAKER) (test 31.0 pg 25.6-32.2 hyeu=355) MEAN CORPUSCULAR HEMOGLOBIN CONC (BEAKER) (test 33.1 GM/DL 32.2-35.5 ywtw=441) RED CELL DISTRIBUTION WIDTH (BEAKER) (test 16.0 % 11.7-14.4 apzj=705) PLATELET COUNT (BEAKER) (test pvfb=306) 165 K/CU MM 150-450 MEAN PLATELET VOLUME (BEAKER) (test yjgt=782) 10.1 fL 9.4-12.3 NUCLEATED RED BLOOD CELLS (BEAKER) (test 0 /100 WBC 0-0 qdkr=188) NEUTROPHILS RELATIVE PERCENT (BEAKER) (test 84 % ytmq=289) LYMPHOCYTES RELATIVE PERCENT (BEAKER) (test 7 % lnbr=118) MONOCYTES RELATIVE PERCENT (BEAKER) (test 7 % zdtt=195) EOSINOPHILS RELATIVE PERCENT (BEAKER) (test 2 % twjp=573) BASOPHILS RELATIVE PERCENT (BEAKER) (test 0 % tvja=456) NEUTROPHILS ABSOLUTE COUNT (BEAKER) (test 10.89 K/ L 1.56-6.13 lrpa=830) LYMPHOCYTES ABSOLUTE COUNT (BEAKER) (test 0.90 K/ L 1.18-3.74 wzoc=836) MONOCYTES ABSOLUTE COUNT (BEAKER) (test 0.84 K/ L 0.24-0.36 dene=178) EOSINOPHILS ABSOLUTE COUNT (BEAKER) (test 0.20 K/ L 0.04-0.36 jqto=344) BASOPHILS ABSOLUTE COUNT (BEAKER) (test 0.05 K/ L 0.01-0.08 bjra=490) IMMATURE GRANULOCYTES-RELATIVE PERCENT (BEAKER) 1 % 0-1 (test twlo=4658) POCT-GLUCOSE [id number] 12:12:00 Test Item Value Reference Range Comments POC-GLUCOSE METER (BEAKER) 154 mg/dL 70-110 TESTED AT [address] (test vkie=4548) [place] [address] BLOOD [id number] 08:00:00 Test Item Value Reference Range Comments CULTURE (BEAKER) (test vpkz=8952) No growth in 5 days BLOOD [id number] 08:00:00 Test Item Value Reference Range Comments CULTURE (BEAKER) (test hzng=8478) No growth in 5 days POCT-GLUCOSE [id number] 07:45:00 Test Item Value Reference Range Comments POC-GLUCOSE METER (BEAKER) 115 mg/dL 70-110 TESTED AT [address] (test sppi=5237) [place] [address] POCT-GLUCOSE [id number] 23:02:00 Test Item Value Reference Range Comments POC-GLUCOSE METER (BEAKER) 90 mg/dL 70-110 TESTED AT [address] (test cycl=0191) [facility] [address] [place], [id number] 17:37:00INTRA OP IMAGINGReason for exam:->CBD STONESFINAL REPORT Fluoroscopy, less than 1 hour History:ERCP Comparison: none Findings:Fluoroscopic assistance was provided during ERCP. Fluoroscopic images taken were interpreted bythe referring clinician. Please see separate procedure note for full details. Total Fluoroscopy time: 79.2 seconds Number of fluoroscopic images obtained: Four Impression:Fluoroscopy assistance as described above. Signed: Enio Ley Verified Date/ Time: 08/15/2018 17:37:26 [place] Location: [address] [place] POCT-GLUCOSE [id number] 17:35:00 Test Item Value Reference Range Comments POC-GLUCOSE METER (BEAKER) 180 mg/dL 70-[address] [facility] [address] [facility] (test hffq=9113) [facility] [address] POCT-GLUCOSE [id number] 07:57:00 Test Item Value Reference Range Comments POC-GLUCOSE METER (BEAKER) 129 mg/dL 70-[address] [facility] [address] [facility] (test szkh=8416) [facility] [address] [id number] 06:01:00 Test Item Value Reference Range Comments MAGNESIUM (BEAKER) (test jjkz=357) 1.6 mg/dL 1.6-2.6 BASIC METABOLIC [id number] 06:01:00 Test Item Value Reference Range Comments SODIUM (BEAKER) (test 138 meq/L 136-145 ktwh=984) POTASSIUM (BEAKER) (test 3.8 meq/L 3.5-5.1 rcyj=239) CHLORIDE (BEAKER) (test 108 meq/L 98-107 mymg=991) CO2 (BEAKER) (test 25 meq/L 22-29 ptvw=683) BLOOD UREA NITROGEN 7 mg/dL 7-21 (BEAKER) (test tzwj=234) CREATININE (BEAKER) (test 0.77 mg/dL 0.57-1.25 axrr=895) GLUCOSE RANDOM (BEAKER) 123 mg/dL 70-105 (test emsu=917) CALCIUM (BEAKER) (test 10.0 mg/dL 8.4-10.2 bkap=265) EGFR (BEAKER) (test 72 mL/min/1.73 sq m ESTIMATED GFR IS NOT hrwn=9037) ACCURATE CREATININE CLEARANCE IN PREDICTING GLOMERULAR FILTRATION RATE. ESTIMATED GFR IS NOT APPLICABLE FOR DIALYSIS PATIENTS. HEPATIC FUNCTION [id number] 06:01:00 Test Item Value Reference Range Comments TOTAL PROTEIN (BEAKER) (test hhns=571) 5.4 gm/dL 6.0-8.3 ALBUMIN (BEAKER) (test duby=6511) 2.9 g/dL 3.5-5.0 BILIRUBIN TOTAL (BEAKER) (test ddaw=466) 0.5 mg/dL 0.2-1.2 BILIRUBIN DIRECT (BEAKER) (test nrjn=839) 0.3 mg/dL 0.1-0.5 ALKALINE PHOSPHATASE (BEAKER) (test gogp=589) 92 U/L 40-150 AST (SGOT) (BEAKER) (test zvjx=072) 33 U/L 5-34 ALT (SGPT) (BEAKER) (test efzw=872) 30 U/L 6-55 CBC (HEMOGRAM ONLY)2018-08-15 04:44:00 Test Item Value Reference Range Comments WHITE BLOOD CELL COUNT (BEAKER) (test zwsc=480) 11.8 K/ L 3.5-10.5 RED BLOOD CELL COUNT (BEAKER) (test qwrn=506) 3.97 M/ L 3.93-5.22 HEMOGLOBIN (BEAKER) (test irrd=631) 12.6 GM/DL 11.2-15.7 HEMATOCRIT (BEAKER) (test brya=386) 37.4 % 34.1-44.9 MEAN CORPUSCULAR VOLUME (BEAKER) (test jvqh=477) 94.2 fL 79.4-94.8 MEAN CORPUSCULAR HEMOGLOBIN (BEAKER) (test 31.7 pg 25.6-32.2 xbgq=255) MEAN CORPUSCULAR HEMOGLOBIN CONC (BEAKER) (test 33.7 GM/DL 32.2-35.5 aoyd=637) RED CELL DISTRIBUTION WIDTH (BEAKER) (test 15.8 % 11.7-14.4 kndn=326) PLATELET COUNT (BEAKER) (test rmlw=028) 189 K/CU MM 150-450 MEAN PLATELET VOLUME (BEAKER) (test cqla=993) 10.7 fL 9.4-12.3 NUCLEATED RED BLOOD CELLS (BEAKER) (test 0 /100 WBC 0-0 nqka=887) POCT-GLUCOSE [id number] 23:38:00 Test Item Value Reference Range Comments POC-GLUCOSE METER (BEAKER) 137 mg/dL 70-110 TESTED AT [address] (test vpen=9239) [facility] [address] POCT-GLUCOSE [id number] 12:13:00 Test Item Value Reference Range Comments POC-GLUCOSE METER (BEAKER) 159 mg/dL 70-110 TESTED AT [address] (test rjcf=5633) [facility] [address] POCT-GLUCOSE [id number] 08:11:00 Test Item Value Reference Range Comments POC-GLUCOSE METER (BEAKER) 138 mg/dL 70-[address] [facility] [address] (test pndl=2907) [place] [address] [id number] 06:01:00 Test Item Value Reference Range Comments MAGNESIUM (BEAKER) (test txac=300) 1.7 mg/dL 1.6-2.6 BASIC METABOLIC [id number] 06:01:00 Test Item Value Reference Range Comments SODIUM (BEAKER) (test 138 meq/L 136-145 hqkw=496) POTASSIUM (BEAKER) (test 3.8 meq/L 3.5-5.1 ptma=333) CHLORIDE (BEAKER) (test 109 meq/L 98-107 mhfc=503) CO2 (BEAKER) (test 26 meq/L 22-29 gesq=598) BLOOD UREA NITROGEN 10 mg/dL 7-21 (BEAKER) (test htcw=607) CREATININE (BEAKER) (test 0.80 mg/dL 0.57-1.25 meha=942) GLUCOSE RANDOM (BEAKER) 106 mg/dL 70-105 (test gvfe=121) CALCIUM (BEAKER) (test 9.4 mg/dL 8.4-10.2 pwvs=386) EGFR (BEAKER) (test 69 mL/min/1.73 sq m ESTIMATED GFR IS NOT vzpd=7467) ACCURATE CREATININE CLEARANCE IN PREDICTING GLOMERULAR FILTRATION RATE. ESTIMATED GFR IS NOT APPLICABLE FOR DIALYSIS PATIENTS. HEPATIC FUNCTION [id number] 06:01:00 Test Item Value Reference Range Comments TOTAL PROTEIN (BEAKER) (test kwur=682) 5.4 gm/dL 6.0-8.3 ALBUMIN (BEAKER) (test stqu=6350) 2.9 g/dL 3.5-5.0 BILIRUBIN TOTAL (BEAKER) (test mhis=643) 0.5 mg/dL 0.2-1.2 BILIRUBIN DIRECT (BEAKER) (test gxci=114) 0.4 mg/dL 0.1-0.5 ALKALINE PHOSPHATASE (BEAKER) (test crdq=156) 105 U/L 40-150 AST (SGOT) (BEAKER) (test diwd=581) 33 U/L 5-34 ALT (SGPT) (BEAKER) (test azor=412) 31 U/L 6-55 CBC (HEMOGRAM ONLY)2018-08-14 05:10:00 Test Item Value Reference Range Comments WHITE BLOOD CELL COUNT (BEAKER) (test ccct=026) 10.6 K/ L 3.5-10.5 RED BLOOD CELL COUNT (BEAKER) (test rvcq=383) 3.87 M/ L 3.93-5.22 HEMOGLOBIN (BEAKER) (test jwhd=380) 12.0 GM/DL 11.2-15.7 HEMATOCRIT (BEAKER) (test jzwy=791) 36.9 % 34.1-44.9 MEAN CORPUSCULAR VOLUME (BEAKER) (test qfpk=967) 95.3 fL 79.4-94.8 MEAN CORPUSCULAR HEMOGLOBIN (BEAKER) (test 31.0 pg 25.6-32.2 mjrz=309) MEAN CORPUSCULAR HEMOGLOBIN CONC (BEAKER) (test 32.5 GM/DL 32.2-35.5 pnvs=476) RED CELL DISTRIBUTION WIDTH (BEAKER) (test 15.7 % 11.7-14.4 cjlh=116) PLATELET COUNT (BEAKER) (test qmhg=055) 158 K/CU MM 150-450 MEAN PLATELET VOLUME (BEAKER) (test bqur=327) 11.0 fL 9.4-12.3 NUCLEATED RED BLOOD CELLS (BEAKER) (test 0 /100 WBC 0-0 nwzb=012) POCT-GLUCOSE [id number] 23:53:00 Test Item Value Reference Range Comments POC-GLUCOSE METER (BEAKER) 115 mg/dL 70-110 TESTED AT [address] (test vnmx=7445) [facility] [address] POCT-GLUCOSE [id number] 16:48:00 Test Item Value Reference Range Comments POC-GLUCOSE METER (BEAKER) 83 mg/dL 70-110 TESTED AT [address] (test crfn=1548) [facility] [address] POCT-GLUCOSE [id number] 13:19:00 Test Item Value Reference Range Comments POC-GLUCOSE METER (BEAKER) 102 mg/dL 70-110 TESTED AT [address] (test rwbp=8336) [facility] [address] POCT-GLUCOSE [id number] 12:02:00 Test Item Value Reference Range Comments POC-GLUCOSE METER (BEAKER) 95 mg/dL 70-[address] [facility] [address] [facility] (test leue=7748) [facility] [address] POCT-GLUCOSE [id number] 07:22:00 Test Item Value Reference Range Comments POC-GLUCOSE METER (BEAKER) 109 mg/dL 70-[address] [facility] [address] [facility] (test cuiz=2213) [facility] [address] [id number] 04:31:00 Test Item Value Reference Range Comments MAGNESIUM (BEAKER) (test 1.7 mg/dL 1.6-2.6 Specimen slightly hemolyzed ttxt=141) BASIC METABOLIC [id number] 04:31:00 Test Item Value Reference Range Comments SODIUM (BEAKER) (test 140 meq/L 136-145 vved=881) POTASSIUM (BEAKER) (test 3.6 meq/L 3.5-5.1 Specimen slightly qvss=532) hemolyzed CHLORIDE (BEAKER) (test 111 meq/L 98-107 pwnj=302) CO2 (BEAKER) (test 24 meq/L 22-29 oxdy=310) BLOOD UREA NITROGEN 12 mg/dL 7-21 (BEAKER) (test earb=165) CREATININE (BEAKER) (test 0.79 mg/dL 0.57-1.25 Specimen slightly yfmz=000) hemolyzed GLUCOSE RANDOM (BEAKER) 110 mg/dL 70-105 (test djoq=717) CALCIUM (BEAKER) (test 9.5 mg/dL 8.4-10.2 mgcn=668) EGFR (BEAKER) (test 70 mL/min/1.73 sq m ESTIMATED GFR IS NOT gxlz=5108) ACCURATE CREATININE CLEARANCE IN PREDICTING GLOMERULAR FILTRATION RATE. ESTIMATED GFR IS NOT APPLICABLE FOR DIALYSIS PATIENTS. HEPATIC FUNCTION [id number] 04:31:00 Test Item Value Reference Range Comments TOTAL PROTEIN (BEAKER) (test 5.2 gm/dL 6.0-8.3 Specimen slightly hemolyzed xpzr=892) ALBUMIN (BEAKER) (test 2.7 g/dL 3.5-5.0 Specimen slightly hemolyzed wvql=9500) BILIRUBIN TOTAL (BEAKER) (test 0.7 mg/dL 0.2-1.2 Specimen slightly hemolyzed hekh=423) BILIRUBIN DIRECT (BEAKER) (test 0.3 mg/dL 0.1-0.5 Specimen slightly hemolyzed xxxb=693) ALKALINE PHOSPHATASE (BEAKER) 118 U/L 40-150 (test iaty=529) AST (SGOT) (BEAKER) (test 52 U/L 5-34 Specimen slightly hemolyzed roob=956) ALT (SGPT) (BEAKER) (test 43 U/L 6-55 Specimen slightly hemolyzed oezp=822) CBC (HEMOGRAM ONLY)2018-08-13 03:56:00 Test Item Value Reference Range Comments WHITE BLOOD CELL COUNT (BEAKER) (test cjoe=470) 9.7 K/ L 3.5-10.5 RED BLOOD CELL COUNT (BEAKER) (test ngrd=290) 3.51 M/ L 3.93-5.22 HEMOGLOBIN (BEAKER) (test ttfy=371) 11.0 GM/DL 11.2-15.7 HEMATOCRIT (BEAKER) (test llxc=208) 33.1 % 34.1-44.9 MEAN CORPUSCULAR VOLUME (BEAKER) (test dggj=848) 94.3 fL 79.4-94.8 MEAN CORPUSCULAR HEMOGLOBIN (BEAKER) (test 31.3 pg 25.6-32.2 ccfc=769) MEAN CORPUSCULAR HEMOGLOBIN CONC (BEAKER) (test 33.2 GM/DL 32.2-35.5 puea=249) RED CELL DISTRIBUTION WIDTH (BEAKER) (test 15.3 % 11.7-14.4 drjg=093) PLATELET COUNT (BEAKER) (test mhsc=877) 128 K/CU MM 150-450 MEAN PLATELET VOLUME (BEAKER) (test eica=097) 11.1 fL 9.4-12.3 NUCLEATED RED BLOOD CELLS (BEAKER) (test 0 /100 WBC 0-0 fgtq=752) POCT-GLUCOSE [id number] 22:11:00 Test Item Value Reference Range Comments POC-GLUCOSE METER (BEAKER) 138 mg/dL 70-110 TESTED AT [address] (test voyt=1060) [facility] [address] POCT-GLUCOSE [id number] 16:28:00 Test Item Value Reference Range Comments POC-GLUCOSE METER (BEAKER) 155 mg/dL 70-110 TESTED AT [address] (test zjgr=1012) [facility] [address] [address], [id number] 13:32:00FINAL REPORT CT abdomen and pelvis without [...] MDReport Verified Date/Time: 08/12/2018 13:32:12 Reading Location: [facility] Diagnostic Imaging Reading Room - [place] [address] [address], BRAIN, WITHOUT [id number] 12:57:00FINAL REPORT CT, BRAIN, WITHOUT CONTRAST CLINICAL [...] Motta Verified Date/Time: 2018 12:57:37 Reading Location: [facility] Radiology Reading Room POCT -GLUCOSE [id number] 12:48:00 Test Item Value Reference Range Comments POC-GLUCOSE METER (BEAKER) 156 mg/dL 70-110 TESTED AT [address] (test tlkd=7692) [facility] [address] POCT-GLUCOSE [id number] 07:16:00 Test Item Value Reference Range Comments POC-GLUCOSE METER (BEAKER) 157 mg/dL 70-110 TESTED AT [address] (test wpno=6267) [facility] [address] VITAMIN [id number] 05:53:00 Test Item Value Reference Range Comments VITAMIN B12 (BEAKER) (test okcf=474) 1063 pg/mL 213-816 [id number] 05:27:00 Test Item Value Reference Range Comments MAGNESIUM (BEAKER) (test fpdl=707) 1.7 mg/dL 1.6-2.6 BASIC METABOLIC [id number] 05:27:00 Test Item Value Reference Range Comments SODIUM (BEAKER) (test 140 meq/L 136-145 gspo=441) POTASSIUM (BEAKER) (test 3.6 meq/L 3.5-5.1 jqsu=647) CHLORIDE (BEAKER) (test 109 meq/L 98-107 iexj=493) CO2 (BEAKER) (test 27 meq/L 22-29 mjof=886) BLOOD UREA NITROGEN 16 mg/dL 7-21 (BEAKER) (test ijls=510) CREATININE (BEAKER) (test 0.88 mg/dL 0.57-1.25 xmkh=136) GLUCOSE RANDOM (BEAKER) 152 mg/dL 70-105 (test jfsg=364) CALCIUM (BEAKER) (test 9.7 mg/dL 8.4-10.2 ibhp=989) EGFR (BEAKER) (test 62 mL/min/1.73 sq m ESTIMATED GFR IS NOT hecz=2031) ACCURATE CREATININE CLEARANCE IN PREDICTING GLOMERULAR FILTRATION RATE. ESTIMATED GFR IS NOT APPLICABLE FOR DIALYSIS PATIENTS. HEPATIC FUNCTION [id number] 05:27:00 Test Item Value Reference Range Comments TOTAL PROTEIN (BEAKER) (test ixev=997) 5.9 gm/dL 6.0-8.3 ALBUMIN (BEAKER) (test dbbz=6178) 3.2 g/dL 3.5-5.0 BILIRUBIN TOTAL (BEAKER) (test nsgh=227) 1.1 mg/dL 0.2-1.2 BILIRUBIN DIRECT (BEAKER) (test kleh=042) 0.7 mg/dL 0.1-0.5 ALKALINE PHOSPHATASE (BEAKER) (test yuwz=340) 77 U/L 40-150 AST (SGOT) (BEAKER) (test zbae=499) 26 U/L 5-34 ALT (SGPT) (BEAKER) (test opgz=330) 19 U/L 6-55 LACTIC ACID, [id number] 05:12:00 Test Item Value Reference Range Comments LACTATE BLOOD VENOUS (2) 0.9 mmol/L 0.5-2.2 Specimen slightly hemolyzed (BEAKER) (test oxol=6246) CBC (HEMOGRAM ONLY)2018-08-12 05:00:00 Test Item Value Reference Range Comments WHITE BLOOD CELL COUNT (BEAKER) (test qbiv=781) 12.8 K/ L 3.5-10.5 RED BLOOD CELL COUNT (BEAKER) (test lvli=860) 3.82 M/ L 3.93-5.22 HEMOGLOBIN (BEAKER) (test dtmb=718) 12.1 GM/DL 11.2-15.7 HEMATOCRIT (BEAKER) (test ycau=900) 36.4 % 34.1-44.9 MEAN CORPUSCULAR VOLUME (BEAKER) (test scqk=316) 95.3 fL 79.4-94.8 MEAN CORPUSCULAR HEMOGLOBIN (BEAKER) (test 31.7 pg 25.6-32.2 fnlt=135) MEAN CORPUSCULAR HEMOGLOBIN CONC (BEAKER) (test 33.2 GM/DL 32.2-35.5 fpey=199) RED CELL DISTRIBUTION WIDTH (BEAKER) (test 15.3 % 11.7-14.4 pfgj=152) PLATELET COUNT (BEAKER) (test dyoq=460) 154 K/CU MM 150-450 MEAN PLATELET VOLUME (BEAKER) (test qjvg=762) 11.0 fL 9.4-12.3 NUCLEATED RED BLOOD CELLS (BEAKER) (test 0 /100 WBC 0-0 myqj=030) TROPONIN [id number] 01:40:00 Test Item Value Reference Range Comments TROPONIN I (BEAKER) (test yzfd=847) 0.02 ng/mL 0.00-0.03 Troponin I (TnI) levels [...] acidosis, acute neurological disease, and persistent tachyarrhythmia.POCT-GLUCOSE [id number] 22:32:00 Test Item Value Reference Range Comments POC-GLUCOSE METER (BEAKER) 154 mg/dL 70-[address] [facility] [address] (test vrry=1241) [facility] [address] [id number] 22:27:00 Test Item Value Reference Range Comments PROCALCITONIN (BEAKER) (test aohx=5313) < ng/mL <0.05 SEPSIS RISK (ng/mL)Low: 0.05-0.50Intermediate: 0.51-2.00High: & gt;=2.01TROPONIN [id number] 18:31:00 Test Item Value Reference Range Comments TROPONIN I (BEAKER) (test zuaq=736) 0.01 ng/mL 0.00-0.03 Troponin I (TnI) levels [...] acidosis, acute neurological disease, and persistent tachyarrhythmia.POCT-GLUCOSE [id number] 12:21:00 Test Item Value Reference Range Comments POC-GLUCOSE METER (BEAKER) 178 mg/dL 70-110 TESTED AT [address] (test hxkw=4580) [facility] [address] RAD, ABDOMEN/KUB, 1 VIEW [id number] 11:42:00Reason for exam:->abdominal painShould this be performed [...] mesh is again seen. Signed: Ken Bunn [facility] Verified Date/ Time: 08/11/2018 11:42:12 Reading Location: [facility] Radiology Reading Room POCT -BLOOD GASES, [id number] 09:41:00 Test Item Value Reference Range Comments TEMP, CELSIUS-POC (BEAKER) 36.9 (test xwwk=8960) FIO2-POC (BEAKER) (test 28 TESTED AT [address] zuyh=8619) [facility] [address] PH, VENOUS-POC (BEAKER) 7.344 7.320-7.420 (test bzsu=7383) PCO2, VENOUS-POC (BEAKER) 48.8 mm Hg 41.0-51.0 (test toub=4756) PO2, VENOUS-POC (BEAKER) 36.0 mm Hg 25.0-40.0 (test stvw=5751) SO2, VENOUS-POC (BEAKER) 66.0 % 40.0-70.0 (test ifav=6045) HCO3, VENOUS-POC (BEAKER) 26.6 meq/L 21.0-29.0 (test kiuh=0582) BASE EXCESS, VENOUS-POC 1.0 meq/L -2.0-3.0 (BEAKER) (test pywj=7048) [id number] 09:41:00 Test Item Value Reference Range Comments POC-SODIUM (BEAKER) (test 142 meq/L 135-148 TESTED AT [address] wpvg=6223) [place] [id number] 09:41:00 Test Item Value Reference Range Comments POC-POTASSIUM (BEAKER) (test 3.6 meq/L 3.6-5.5 TESTED AT [address] ovit=2542) [place] [address] [id number] 09:41:00 Test Item Value Reference Range Comments POC-GLUCOSE (BEAKER) (test 165 mg/dL 70-110 TESTED AT [address] xpad=4521) [place] [address] POCT-CALCIUM [id number] 09:41:00 Test Item Value Reference Range Comments POC-CALCIUM IONIZED (BEAKER) 1.50 mmol/L 1.12-1.27 TESTED AT [address] (test knek=7966) [place] [address] [id number] 09:41:00 Test Item Value Reference Range Comments POC-HEMATOCRIT (BEAKER) (test 34 % 36-45 TESTED AT [address] calg=8306) [place] [address] [id number] 09:41:00 Test Item Value Reference Range Comments POC-HEMOGLOBIN (BEAKER) 11.6 g/dL 12.0-15.0 TESTED AT [address] (test lnht=2525) [place] [address]TESTED AT [place] [id number] POCT-LACTIC ACID, [id number] 09:41:00 Test Item Value Reference Range Comments POC-LACTIC ACID, VENOUS 0.9 mmol/L 0.9-1.7 TESTED AT [address] (BEAKER) (test qqoa=8446) [place] [id number] URINALYSIS W/ REFLEX URINE [id number] 09:28:00 Test Item Value Reference Range Comments COLOR (BEAKER) (test ykrb=620) Yellow CLARITY (BEAKER) (test qbtv=997) Clear SPECIFIC GRAVITY UA (BEAKER) (test ofpt=832) 1.012 1.001-1.035 PH UA (BEAKER) (test anpp=458) 6.0 5.0-8.0 PROTEIN UA (BEAKER) (test farr=380) 10 mg/dL Negative GLUCOSE UA (BEAKER) (test nqel=969) 50 mg/dL Negative KETONES UA (BEAKER) (test avgc=479) 20 mg/dL Negative BILIRUBIN UA (BEAKER) (test dptt=130) Negative Negative BLOOD UA (BEAKER) (test fygd=091) Moderate Negative NITRITE UA (BEAKER) (test jjlx=311) Negative Negative LEUKOCYTE ESTERASE UA (BEAKER) (test acxu=708) Negative Negative UROBILINOGEN UA (BEAKER) (test wvay=045) 0.2 mg/dL 0.2-1.0 RBC UA (BEAKER) (test yqfs=576) 105 /HPF WBC UA (BEAKER) (test damk=227) 2 /HPF SOURCE(BEAKER) (test wlsc=9576) POCT-GLUCOSE [id number] 09:17:00 Test Item Value Reference Range Comments POC-GLUCOSE METER (BEAKER) 172 mg/dL 70-[address] [facility] [address] (test pfqs=8322) [facility] [address] [id number] 06:43:00 Test Item Value Reference Range Comments MAGNESIUM (BEAKER) (test qsrp=797) 1.7 mg/dL 1.6-2.6 BASIC METABOLIC [id number] 06:43:00 Test Item Value Reference Range Comments SODIUM (BEAKER) (test 140 meq/L 136-145 kqys=495) POTASSIUM (BEAKER) (test 3.7 meq/L 3.5-5.1 ynmp=340) CHLORIDE (BEAKER) (test 110 meq/L 98-107 pxer=192) CO2 (BEAKER) (test 25 meq/L 22-29 bngo=247) BLOOD UREA NITROGEN 16 mg/dL 7-21 (BEAKER) (test hoxq=993) CREATININE (BEAKER) (test 0.78 mg/dL 0.57-1.25 xvlw=239) GLUCOSE RANDOM (BEAKER) 163 mg/dL 70-105 (test mnio=184) CALCIUM (BEAKER) (test 10.3 mg/dL 8.4-10.2 zqzi=477) EGFR (BEAKER) (test 71 mL/min/1.73 sq m ESTIMATED GFR IS NOT uzyg=3959) ACCURATE CREATININE CLEARANCE IN PREDICTING GLOMERULAR FILTRATION RATE. ESTIMATED GFR IS NOT APPLICABLE FOR DIALYSIS PATIENTS. HEPATIC FUNCTION [id number] 06:43:00 Test Item Value Reference Range Comments TOTAL PROTEIN (BEAKER) (test ebcq=645) 5.8 gm/dL 6.0-8.3 ALBUMIN (BEAKER) (test ayql=4489) 3.2 g/dL 3.5-5.0 BILIRUBIN TOTAL (BEAKER) (test mobp=292) 1.1 mg/dL 0.2-1.2 BILIRUBIN DIRECT (BEAKER) (test folp=147) 0.7 mg/dL 0.1-0.5 ALKALINE PHOSPHATASE (BEAKER) (test fmll=555) 76 U/L 40-150 AST (SGOT) (BEAKER) (test rkpf=372) 23 U/L 5-34 ALT (SGPT) (BEAKER) (test kmbm=324) 20 U/L 6-55 CBC (HEMOGRAM ONLY)2018-08-11 05:56:00 Test Item Value Reference Range Comments WHITE BLOOD CELL COUNT (BEAKER) (test cdtc=695) 15.2 K/ L 3.5-10.5 RED BLOOD CELL COUNT (BEAKER) (test zhxo=440) 3.68 M/ L 3.93-5.22 HEMOGLOBIN (BEAKER) (test nrzp=021) 11.5 GM/DL 11.2-15.7 HEMATOCRIT (BEAKER) (test ngdx=839) 35.4 % 34.1-44.9 MEAN CORPUSCULAR VOLUME (BEAKER) (test svej=747) 96.2 fL 79.4-94.8 MEAN CORPUSCULAR HEMOGLOBIN (BEAKER) (test 31.3 pg 25.6-32.2 xyvs=654) MEAN CORPUSCULAR HEMOGLOBIN CONC (BEAKER) (test 32.5 GM/DL 32.2-35.5 xusq=530) RED CELL DISTRIBUTION WIDTH (BEAKER) (test 15.8 % 11.7-14.4 acym=778) PLATELET COUNT (BEAKER) (test ldni=874) 139 K/CU MM 150-450 MEAN PLATELET VOLUME (BEAKER) (test tabu=934) 11.3 fL 9.4-12.3 NUCLEATED RED BLOOD CELLS (BEAKER) (test 0 /100 WBC 0-0 bleu=107) TROPONIN [id number] 01:18:00 Test Item Value Reference Range Comments TROPONIN I (BEAKER) (test xiyc=527) 0.04 ng/mL 0.00-0.03 Troponin I (TnI) levels [...] failure, acidosis, acute neurological disease, and persistent tachyarrhythmia.[id number] 01:13:00 Test Item Value Reference Range Comments MAGNESIUM (BEAKER) (test qkio=665) 1.6 mg/dL 1.6-2.6 BASIC METABOLIC [id number] 01:13:00 Test Item Value Reference Range Comments SODIUM (BEAKER) (test 138 meq/L 136-145 vkye=473) POTASSIUM (BEAKER) (test 3.7 meq/L 3.5-5.1 lrlz=900) CHLORIDE (BEAKER) (test 109 meq/L 98-107 ltvi=653) CO2 (BEAKER) (test 26 meq/L 22-29 phlc=479) BLOOD UREA NITROGEN 15 mg/dL 7-21 (BEAKER) (test roug=781) CREATININE (BEAKER) (test 0.74 mg/dL 0.57-1.25 wqzy=799) GLUCOSE RANDOM (BEAKER) 147 mg/dL 70-105 (test lxdl=464) CALCIUM (BEAKER) (test 10.0 mg/dL 8.4-10.2 kpzg=763) EGFR (BEAKER) (test 76 mL/min/1.73 sq m ESTIMATED GFR IS NOT jzzm=0055) ACCURATE CREATININE CLEARANCE IN PREDICTING GLOMERULAR FILTRATION RATE. ESTIMATED GFR IS NOT APPLICABLE FOR DIALYSIS PATIENTS. HEPATIC FUNCTION [id number] 01:13:00 Test Item Value Reference Range Comments TOTAL PROTEIN (BEAKER) (test nvns=070) 5.8 gm/dL 6.0-8.3 ALBUMIN (BEAKER) (test xpyx=6676) 3.1 g/dL 3.5-5.0 BILIRUBIN TOTAL (BEAKER) (test raut=777) 1.0 mg/dL 0.2-1.2 BILIRUBIN DIRECT (BEAKER) (test dibi=433) 0.6 mg/dL 0.1-0.5 ALKALINE PHOSPHATASE (BEAKER) (test hkje=671) 75 U/L 40-150 AST (SGOT) (BEAKER) (test zqny=570) 20 U/L 5-34 ALT (SGPT) (BEAKER) (test yjwy=396) 18 U/L 6-55 [id number] 01:13:00 Test Item Value Reference Range Comments LIPASE (BEAKER) (test klrx=777) 23 U/L 8-78 RAD, CHEST, 1 VIEW, NON [id number] 23:47:00Reason for exam:->piccShould this be performed at [...] MDReport Verified Date/Time: 08/10/2018 23:47:27 Reading Location: [address] Consult Reading Room POCT-GLUCOSE [id number] 23:29:00 Test Item Value Reference Range Comments POC-GLUCOSE METER (BEAKER) 158 mg/dL 70-[address] [facility] [address] (test xccf=1208) [facility] [address] HEMOGLOBIN [id number] 22:17:00 Test Item Value Reference Range Comments HEMOGLOBIN A1C (BEAKER) (test cqiq=222) 7.5 % 4.3-6.1 T4, [id number] 20:54:00 Test Item Value Reference Range Comments FREE T4 (BEAKER) (test lhxm=521) 0.86 ng/dL 0.70-1.48 TSH/FREE T4 IF [id number] 20:22:00 Test Item Value Reference Range Comments THYROID STIMULATING HORMONE (BEAKER) (test 0.30 uIU/mL 0.35-4.94 dkkd=592) [id number] 19:31:00 Test Item Value Reference Range Comments AMMONIA (BEAKER) (test jbtv=222) 29 mol/L 18-72 B-TYPE NATRIURETIC FACTOR (BNP)2018-08-10 18:48:00 Test Item Value Reference Range Comments B-TYPE NATRIURETIC PEPTIDE (BEAKER) (test 876 pg/mL 0-100 wyfd=301) LACTIC ACID, [id number] 18:47:00 Test Item Value Reference Range Comments LACTATE BLOOD VENOUS (2) 1.0 mmol/L 0.5-2.2 Specimen slightly hemolyzed (BEAKER) (test qdld=2177) POCT-GLUCOSE [id number] 18:30:00 Test Item Value Reference Range Comments POC-GLUCOSE METER (BEAKER) 149 mg/dL 70-[address] [facility] [address] (test qzog=4143) [facility] [address] [id number] 18:27:00 Test Item Value Reference Range Comments PROTIME (BEAKER) (test tjun=743) 14.8 seconds 11.9-14.2 INR (BEAKER) (test wgwz=431) 1.2 <=5.9 PARTIAL THROMBOPLASTIN TIME (BEAKER) (test 30.3 seconds 22.5-36.0 ffgr=917) Effective 07/15/2018: PT Reference Range ChangeNew: 11.9-14.2 Previous: 11.7- 14.7RECOMMENDED COUMADIN/WARFARIN INR THERAPY RANGESSTANDARD DOSE: 2.0-3.0 Includes: PROPHYLAXIS for venous thrombosis, systemic embolization; TREATMENT for venous thrombosis and/or pulmonary embolus.HIGH RISK: Target INR is2.5-3.5 for patients wiht mechanical heart valves.CBC W/PLT COUNT & AUTO [id number] 18:08:00 Test Item Value Reference Range Comments WHITE BLOOD CELL COUNT (BEAKER) (test pyvg=124) 15.4 K/ L 3.5-10.5 RED BLOOD CELL COUNT (BEAKER) (test oclz=789) 3.77 M/ L 3.93-5.22 HEMOGLOBIN (BEAKER) (test qcpw=457) 11.8 GM/DL 11.2-15.7 HEMATOCRIT (BEAKER) (test twro=447) 36.2 % 34.1-44.9 MEAN CORPUSCULAR VOLUME (BEAKER) (test uijh=266) 96.0 fL 79.4-94.8 MEAN CORPUSCULAR HEMOGLOBIN (BEAKER) (test 31.3 pg 25.6-32.2 gnct=773) MEAN CORPUSCULAR HEMOGLOBIN CONC (BEAKER) (test 32.6 GM/DL 32.2-35.5 mzky=881) RED CELL DISTRIBUTION WIDTH (BEAKER) (test 16.1 % 11.7-14.4 snwh=770) PLATELET COUNT (BEAKER) (test kxps=452) 140 K/CU MM 150-450 MEAN PLATELET VOLUME (BEAKER) (test cboj=668) 11.0 fL 9.4-12.3 NUCLEATED RED BLOOD CELLS (BEAKER) (test 0 /100 WBC 0-0 qxtd=009) NEUTROPHILS RELATIVE PERCENT (BEAKER) (test 82 % bush=502) LYMPHOCYTES RELATIVE PERCENT (BEAKER) (test 8 % imza=133) MONOCYTES RELATIVE PERCENT (BEAKER) (test 8 % cuaf=158) EOSINOPHILS RELATIVE PERCENT (BEAKER) (test 0 % vrqq=678) BASOPHILS RELATIVE PERCENT (BEAKER) (test 0 % nosj=262) NEUTROPHILS ABSOLUTE COUNT (BEAKER) (test 12.69 K/ L 1.56-6.13 ikxz=014) LYMPHOCYTES ABSOLUTE COUNT (BEAKER) (test 1.24 K/ L 1.18-3.74 ndma=844) MONOCYTES ABSOLUTE COUNT (BEAKER) (test 1.21 K/ L 0.24-0.36 qlmz=494) EOSINOPHILS ABSOLUTE COUNT (BEAKER) (test 0.02 K/ L 0.04-0.36 ttiu=810) BASOPHILS ABSOLUTE COUNT (BEAKER) (test 0.04 K/ L 0.01-0.08 oudd=878) IMMATURE GRANULOCYTES-RELATIVE PERCENT (BEAKER) 2 % 0-1 (test gpur=7895)
--- NOTE | 2018-10-17 23:03 | RAD REPORT ---
EXAM DESCRIPTION: RAD - Knee Left 3 View - 10/17/2018 10:45 pm CLINICAL HISTORY: Left knee pain FINDINGS: No fracture or dislocation is seen. Osteoporosis. Chondrocalcinosis. Mild lateral subluxation of tibia on the femur
[2018-10-18] MEDS ORDERED: ONDANSETRON 4 MG/2 ML VIAL ONE (00:10)
[2018-10-18 00:44] LABS: Absolute Lymphocytes (CBC) 2.6 K/uL (0.7-4.9); Basophils % 1.3 % (0-1.3); Hematocrit 40.2 % (36.0-45.0); Lymphocytes % 20.4 % (15.3-44.8); MPV 9.7 fL (7.6-11.3); RBC Red Blood Cell Count 4.31 M/uL (3.86-4.86)
[2018-10-18 00:56] LABS: Bilirubin Direct 0.1 mg/dL (0-0.2); Bilirubin Total 0.2 mg/dL (0.2-1.0); Potassium 3.4 mmol/L (3.5-5.1); Protein, Total 7.3 g/dL (6.4-8.2)
[2018-10-18] MEDS ORDERED: D50W 25 GM/50 ML SYRINGE IV ONE (01:04)
[2018-10-18] MEDS ORDERED: D5 0.45 NS 1,000 ML IV ONE (01:05)
--- NOTE | 2018-10-18 02:35 | ER ---
Nurse's Notes [facility] Name: Judy Puri Age: 78 yrs Sex: Female : 1940 Arrival Date: 10/17/2018 Time: 22:08 Bed 18 Private MD: Diagnosis: Hypoglycemia, unspecified Presentation: 10/17 22:10 Presenting complaint: EMS states: patient felt left knee pain and swollen tonight. rr5 denies any trauma. she has history of arthritis. pain score. 10/10. CBG 67 mg/dL we gave 1 oral glucose. BP 106/58 mmHg. 22:10 Transition of care: patient was not received from another setting of care. Onset of rr5 symptoms was October 17, 2018. Risk Assessment: Do you want to hurt yourself or someone else? Patient reports no desire to harm self or others. Initial Sepsis Screen: Does the patient meet any 2 criteria? No. Patient's initial sepsis screen is negative. Does the patient have a suspected source of infection? No. Patient's initial sepsis screen is negative. Note patient is drowsy able to respond correctly thru verbal command. Care prior to arrival: Medication(s) given:. 22:10 Method Of Arrival: EMS: [facility] rr5 22:10 Acuity: JONATHAN 3 rr5 22:10 Note of the patient said that he thinks the patient took norco pill that was an rr5 old medication dated 2007. I don't know where she got that. when the patient asked about the pill she denies it. Historical: - Allergies: 22:21 Codeine; rr5 22:21 Propoxyphene HCl; rr5 - Home Meds: 22:21 Aspirin Oral [Active]; atorvastatin Oral [Active]; Celecoxib Oral [Active]; Furosemide rr5 Oral [Active]; gabapentin Oral [Active]; Glipizide Oral [Active]; Hydrocodone-Acetaminophen Oral [Active]; losartan Oral [Active]; Metoprolol Tartrate Oral [Active]; Omeprazole Oral [Active]; pantoprazole Oral [Active]; - PMHx: 22:21 Arthritis; Atrial Fib; cardiac stent; Diabetes - NIDDM; GALLSTONES; Hypertension; rr5 Myocardial infarction; - Immunization history:: Adult Immunizations up to date. - Social history:: Smoking status: Patient/guardian denies using tobacco. - Ebola Screening: : Patient negative for fever greater than or equal to 101.5 degrees Fahrenheit, and additional compatible Ebola Virus Disease symptoms Patient denies exposure to infectious person Patient denies travel to an Ebola-affected area in the 21 days before illness onset. Screenin:22 Abuse screen: Denies threats or abuse. Denies injuries from another. Nutritional rr5 screening: No deficits noted. Tuberculosis screening: No symptoms or risk factors identified. Fall Risk Gait- Impaired (20 pts.). Total Chan Fall Scale indicates No Risk (0-24 pts). Assessment: 22:15 General: Appears in no apparent distress. uncomfortable, Behavior is calm, cooperative, jd3 appropriate for age, drowsy. Pain: Complains of pain in left knee. Neuro: Level of Consciousness is awake, obeys commands, Oriented to person, place, time, situation, Reports family reports the patient might be taking extra/out of date pain medication and is has been acting differently recently.. Cardiovascular: Capillary refill < 3 seconds Patient's skin is warm and dry. Respiratory: Airway is patent Respiratory effort is even, unlabored, Respiratory pattern is regular, symmetrical. GI: Abdomen is non-distended, Reports lower abdominal pain, upper abdominal pain. : No signs and/or symptoms were reported regarding the genitourinary system. EENT: No signs and/or symptoms were reported regarding the EENT system. Derm: Skin is intact, Skin is dry, Skin is normal, Skin temperature is warm. Musculoskeletal: Circulation, motion, and sensation intact. Range of motion: limited in left knee Swelling present in right leg and left leg. 23:30 Reassessment: Patient appears in no apparent distress at this time. No changes from jd3 previously documented assessment. Patient and/or family updated on plan of care and expected duration. Pain level reassessed. Patient is alert, oriented x 3, equal unlabored respirations, skin warm/dry/pink. 10/18 00:05 Reassessment: patient complaining of nausea and vomiting. ED provider aware with order rr5 made and carried out. 00:30 Reassessment: Patient appears in no apparent distress at this time. No changes from jd3 previously documented assessment. Patient and/or family updated on plan of care and expected duration. Pain level reassessed. Patient is alert, oriented x 3, equal unlabored respirations, skin warm/dry/pink. Reassessment: awaiting results. 01:30 Reassessment: Patient appears in no apparent distress at this time. Patient and/or jd3 family updated on plan of care and expected duration. Pain level reassessed. Patient is alert, oriented x 3, equal unlabored respirations, skin warm/dry/pink. pt appears drowsy still will wake up with any sound or verbal stimulus. resting in bed with eyes closed, even and unlabored respirations, IV with fluids running per ordered rate. no redness or swelling noted at IV site. family at bedside. 02:30 Reassessment: Patient appears in no apparent distress at this time. No changes from jd3 previously documented assessment. Patient and/or family updated on plan of care and expected duration. Pain level reassessed. Patient is alert, oriented x 3, equal unlabored respirations, skin warm/dry/pink. 03:30 Reassessment: Patient appears in no apparent distress at this time. No changes from jd3 previously documented assessment. Patient and/or family updated on plan of care and expected duration. Pain level reassessed. Patient is alert, oriented x 3, equal unlabored respirations, skin warm/dry/pink. 04:20 Reassessment: Patient appears in no apparent distress at this time. No changes from jd3 previously documented assessment. Patient and/or family updated on plan of care and expected duration. Pain level reassessed. Patient is alert, oriented x 3, equal unlabored respirations, skin warm/dry/pink. Patient states feeling better. Vital Signs: 10/17 22:15 BP 128 / 62; Pulse 66; Resp 16; Temp 98; Pulse Ox 98% ; Weight 68.95 kg; Height 4 ft. rr5 11 in. (149.86 cm); Pain 10/10; 10/18 00:52 BP 136 / 75; Pulse 63; Resp 18 S; Pulse Ox 97% on R/A; jd3 02:45 BP 128 / 50; Pulse 57; Resp 16 S; Pulse Ox 97% on R/A; jd3 03:53 BP 105 / 51; Pulse 55; Resp 16 S; Pulse Ox 96% on R/A; Pain 0/10; jd3 10/17 22:15 Body Mass Index 30.70 (68.95 kg, 149.86 cm) rr5 ED Course: 10/17 22:08 Patient arrived in ED. ds1 22:12 Joselo Zayas, NATALI is Primary Nurse. rr5 22:12 Howard Richards NP is PHCP. pm1 22:12 Win Jolly MD is Attending Physician. pm1 22:17 Triage completed. rr5 22:21 Arm band placed on right wrist. rr5 22:45 Knee Left 3 View XRAY In Process Unspecified. EDMS 23:23 Radiology exam delayed due to lab results not completed at this time. (BUN/Creatinine). mw3 23:29 Note: PT REFUSED RT KNEE X-RAY. STATED NO PAIN TO RT KNEE.. kw 23:50 Inserted saline lock: 22 gauge in left antecubital area, using aseptic technique. rr5 ,using aseptic technique. by [facility] Blood collected. 10/18 00:39 Radiology exam delayed due to lab results not completed at this time. (BUN/Creatinine). nj 00:48 Hang Banerjee, RN is Primary Nurse. jd3 00:52 Patient has correct armband on for positive identification. Bed in low position. Call jd3 light in reach. Side rails up X2. Adult w/ patient. 01:36 CT completed. Patient tolerated procedure well. Patient moved to CT. Patient moved back vt from CT. 01:42 CT Abd/Pelvis - IV Contrast Only In Process Unspecified. EDMS 02:33 Katherin Driscoll MD is Hospitalizing Provider. pm1 03:10 Straight cath inserted, using sterile technique, 16 Fr. Specimen obtained. jd3 03:10 No provider procedures requiring assistance completed. jd3 04:20 Patient admitted, IV remains in place. jd3 Administered Medications: 00:10 Drug: Zofran 4 mg Route: IVP; Site: left antecubital; rr5 01:10 Follow up: Response: No adverse reaction jd3 01:08 Drug: D50W 50 ml Route: IVP; Site: left antecubital; jd3 02:05 Follow up: Response: No adverse reaction jd3 01:20 Drug: D5-1/2 NS 1000 ml Route: IV; Rate: 125 ml/hr; Site: left antecubital; jd3 04:26 Follow up: Response: No adverse reaction; IV Status: Order to discontinue infusion jd3 Point of Care Testing: Blood Glucose: 10/17 22:20 Blood Glucose: 85 mg/dL; oe 10/18 01:08 Blood Glucose: 45 mg/dL; jd3 02:15 Blood Glucose: 155 mg/dL; oe 03:35 Blood Glucose: 144 mg/dL; jd3 01:08 provider notedified. jd3 Ranges: Outcome: 02:33 Decision to Hospitalize by Provider. pm1 04:20 Admitted to Med/surg accompanied by nurse, via stretcher, room 406, with chart, Report jd3 called to Christ HURST 04:20 Condition: stable 04:20 Instructed on the need for admit, Demonstrated understanding of instructions. 04:21 Patient left the ED. rr5 Signatures: Dispatcher [employer] EDMS Yudi Perez ds1 Caroline Solano Patrick, TRIM STENCIL MAKER TRIM STENCIL MAKER pm1 Charly Coon [place] oe Davies, Jonathon, RN RN jd3 Faviola Watson mw3 Joselo Zayas, RN RN rr5 Corrections: (The following items were deleted from the chart) 00:55 10/17 22:15 Neuro: Level of Consciousness is awake, obeys commands, Oriented to person, jd3 place, time, situation, jd3 10/18 03:35 03:29 BP 100 / 40; Pulse 57bpm; Resp 15bpm; Spontaneous; Pulse Ox 95% RA; Pain 0/10; jd3jd3 03:42 02:45 BP 128 / 46; Pulse 57bpm; Resp 16bpm; Spontaneous; Pulse Ox 97% RA; jd3 jd3
--- NOTE | 2018-10-18 02:36 | EDPHYS ---
Physician Documentation [facility] Name: Judy Puri Age: 78 yrs Sex: Female : 1940 Arrival Date: 10/17/2018 Time: 22:08 Bed 18 Private MD: ED Physician Win Jolly HPI: 10/17 23:00 This 78 yrs old Female presents to ER via EMS with complaints of Knee Pain. pm1 23:00 The patient presents with abdominal pain in the lower abdomen. Onset: The pm1 symptoms/episode began/occurred today. The symptoms do not radiate. Associated signs and symptoms: Pertinent positives: bilateral knee pain. Family concerned patient took some [place] and she not supposed to be taking it, Pertinent negatives: chest pain, diarrhea, dysuria, fever, shortness of breath, vomiting. Modifying factors: The symptoms are alleviated by nothing, the symptoms are aggravated by knee pain - movement. Severity of pain: in the emergency department the pain is actually worse. chronic knee pain. Discharged from hospital 3 days. Was admitted for kidney stones requiring intervention. Patient with blood sugar of 67 on EMS arrival and was given 1 amp D50. On ER arrival blood sugar 85. 23:00 Family is requesting drug screen. pm1 Historical: - Allergies: 22:21 Codeine; rr5 22:21 Propoxyphene HCl; rr5 - Home Meds: 22:21 Aspirin Oral [Active]; atorvastatin Oral [Active]; Celecoxib Oral [Active]; Furosemide rr5 Oral [Active]; gabapentin Oral [Active]; Glipizide Oral [Active]; Hydrocodone-Acetaminophen Oral [Active]; losartan Oral [Active]; Metoprolol Tartrate Oral [Active]; Omeprazole Oral [Active]; pantoprazole Oral [Active]; - PMHx: 22:21 Arthritis; Atrial Fib; cardiac stent; Diabetes - NIDDM; GALLSTONES; Hypertension; rr5 Myocardial infarction; - Immunization history:: Adult Immunizations up to date. - Social history:: Smoking status: Patient/guardian denies using tobacco. - Ebola Screening: : Patient negative for fever greater than or equal to 101.5 degrees Fahrenheit, and additional compatible Ebola Virus Disease symptoms Patient denies exposure to infectious person Patient denies travel to an Ebola-affected area in the 21 days before illness onset. ROS: 23:00 Constitutional: Negative for fever, chills, and weight loss, Eyes: Negative for injury, pm1 pain, redness, and discharge, ENT: Negative for injury, pain, and discharge, Neck: Negative for injury, pain, and swelling, Cardiovascular: Negative for chest pain, palpitations, and edema, Respiratory: Negative for shortness of breath, cough, wheezing, and pleuritic chest pain. 23:00 Back: Negative for injury and pain, : Negative for injury, bleeding, discharge, and swelling, MS/Extremity: Negative for injury and deformity, Skin: Negative for injury, rash, and discoloration, Neuro: Negative for headache, weakness, numbness, tingling, and seizure. 23:00 Abdomen/GI: Positive for abdominal pain, of the right lower quadrant and left lower quadrant, Negative for nausea, vomiting, and diarrhea. Exam: 23:00 Constitutional: This is a well developed, well nourished patient who is awake, alert, pm1 and in no acute distress. Head/Face: Normocephalic, atraumatic. Eyes: Pupils equal round and reactive to light, extra-ocular motions intact. Lids and lashes normal. Conjunctiva and sclera are non-icteric and not injected. Cornea within normal limits. Periorbital areas with no swelling, redness, or edema. ENT: Nares patent. No nasal discharge, no septal abnormalities noted. Tympanic membranes are normal and external auditory canals are clear. Oropharynx with no redness, swelling, or masses, exudates, or evidence of obstruction, uvula midline. Mucous membranes moist. Neck: Trachea midline, no thyromegaly or masses palpated, and no cervical lymphadenopathy. Supple, full range of motion without nuchal rigidity, or vertebral point tenderness. No Meningismus. Chest/axilla: Normal chest wall appearance and motion. Nontender with no deformity. No lesions are appreciated. Cardiovascular: Regular rate and rhythm with a normal S1 and S2. No gallops, murmurs, or rubs. Normal PMI, no JVD. No pulse deficits. Respiratory: Lungs have equal breath sounds bilaterally, clear to auscultation and percussion. No rales, rhonchi or wheezes noted. No increased work of breathing, no retractions or nasal flaring. Abdomen/GI: Soft, non-tender, with normal bowel sounds. No distension or tympany. No guarding or rebound. No evidence of tenderness throughout. Back: No spinal tenderness. No costovertebral tenderness. Full range of motion. Skin: Warm, dry with normal turgor. Normal color with no rashes, no lesions, and no evidence of cellulitis. 23:00 Musculoskeletal/extremity: Extremities: grossly normal except: noted in the left knee: tenderness, There is no evidence of decreased ROM, deformity, noted in the right knee: swelling, no evidence of decreased ROM, deformity. Vital Signs: 22:15 BP 128 / 62; Pulse 66; Resp 16; Temp 98; Pulse Ox 98% ; Weight 68.95 kg; Height 4 ft. rr5 11 in. (149.86 cm); Pain 10/10; 10/18 00:52 BP 136 / 75; Pulse 63; Resp 18 S; Pulse Ox 97% on R/A; jd3 02:45 BP 128 / 50; Pulse 57; Resp 16 S; Pulse Ox 97% on R/A; jd3 03:53 BP 105 / 51; Pulse 55; Resp 16 S; Pulse Ox 96% on R/A; Pain 0/10; jd3 10/17 22:15 Body Mass Index 30.70 (68.95 kg, 149.86 cm) rr5 MDM: 10/17 22:17 Patient medically screened. pm1 23:27 ED course: Patient refused right knee xray. Patient with right knee tenderness on pm1 examination and was slapping me when I palpated her right knee. 10/18 02:32 Data reviewed: vital signs. Data interpreted: Pulse oximetry: on room air is 97 %. pm1 Interpretation: normal. Counseling: I had a detailed discussion with the patient and/or guardian regarding: the historical points, exam findings, and any diagnostic results supporting the discharge/admit diagnosis, lab results, radiology results, the need for further work-up and treatment in the hospital. 02:41 Physician consultation: Katherin Driscoll MD was called at 02:41, was contacted at 02:41, pm1 regarding admission, patient's condition. 10/17 22:21 Order name: Glucose, Ancillary Testing; Complete Time: 22:26 EDMS 10/17 22:56 Order name: UDS; Complete Time: 03:06 pm1 10/17 22:56 Order name: Basic Metabolic Panel; Complete Time: 00:59 pm1 10/17 22:56 Order name: CBC with Diff; Complete Time: 00:59 pm1 10/17 22:56 Order name: Creatinine for Radiology; Complete Time: 00:59 pm1 10/17 22:56 Order name: Hepatic Function; Complete Time: 00:59 pm1 10/17 22:56 Order name: Lipase; Complete Time: 00:59 pm1 10/17 22:56 Order name: Urine Microscopic Only; Complete Time: 03:18 pm1 10/18 02:19 Order name: Glucose, Ancillary Testing; Complete Time: 02:20 EDMS 10/18 02:19 Order name: Glucose, Ancillary Testing EDMS 10/18 02:53 Order name: Urine Dipstick--Ancillary (enter results); Complete Time: 03:18 fc 10/18 03:19 Order name: Urine Culture EDMS 10/18 03:41 Order name: C-Reactive Protein EDMS 10/18 03:41 Order name: Hemoglobin A1c EDMS 10/17 22:27 Order name: Knee Left 3 View XRAY; Complete Time: 23:12 pm1 10/17 22:56 Order name: IV Saline Lock; Complete Time: 00:06 pm1 10/17 22:56 Order name: Labs collected and sent; Complete Time: 00:06 pm1 10/17 22:56 Order name: CT Abd/Pelvis - IV Contrast Only pm1 10/18 03:41 Order name: CONS Pharmacy Consult EDMS 10/18 03:41 Order name: Regular EDMS 10/18 03:41 Order name: Sedimentation Rate, [place] EDMS 10/18 03:41 Order name: Uric Acid EDMS 10/18 03:42 Order name: CBC with Automated Diff EDMS 10/18 03:42 Order name: CBC with Automated Diff EDMS 10/18 03:42 Order name: Comprehensive Metabolic Panel EDMS 10/18 03:42 Order name: Comprehensive Metabolic Panel EDMS 10/17 22:56 Order name: Urine Dipstick-Ancillary (obtain specimen); Complete Time: 02:50 pm1 Administered Medications: 00:10 Drug: Zofran 4 mg Route: IVP; Site: left antecubital; rr5 01:10 Follow up: Response: No adverse reaction jd3 01:08 Drug: D50W 50 ml Route: IVP; Site: left antecubital; jd3 02:05 Follow up: Response: No adverse reaction jd3 01:20 Drug: D5-1/2 NS 1000 ml Route: IV; Rate: 125 ml/hr; Site: left antecubital; jd3 04:26 Follow up: Response: No adverse reaction; IV Status: Order to discontinue infusion jd3 Point of Care Testing: Blood Glucose: 10/17 22:20 Blood Glucose: 85 mg/dL; oe 10/18 01:08 Blood Glucose: 45 mg/dL; jd3 02:15 Blood Glucose: 155 mg/dL; oe 03:35 Blood Glucose: 144 mg/dL; jd3 01:08 provider notedified. jd3 Ranges: Critical Glucose Levels:Adult <50 mg/dl or >400 mg/dl <40 mg/dl or >180 mg/dl Disposition: 06:05 Co-signature as Attending Physician, Win Jolly MD. rn Disposition: 10/18/18 02:33 Hospitalization ordered by Katherin Driscoll for Inpatient Admission. Preliminary diagnosis is Hypoglycemia, unspecified. - Bed requested for Telemetry/MedSurg (Inpatient). - Status is Inpatient Admission. rr5 - Condition is Stable. - Problem is new. - Symptoms have improved. UTI on Admission? No Signatures: Dispatcher [employer] [facility] Devi Rosario RN RN dw Nilsa Hare RN RN Win Cali MD MD rn Marinas, Patrick, CHECK GRADER CHECK GRADER pm1 Hang Banerjee RN RN jJoselo Smiley RN RN rr5 Freddy Woodard ag4 Corrections: (The following items were deleted from the chart) 10/17 23:31 22:57 Knee Right 3 View+RAD.RAD.BRZ ordered. [facility] EDIL 10/18 02:38 10/17 23:00 Discharged from hospital 3 weeks ago. Was admitted for kidney stones pm1 requiring intervention at the [facility], pm1 10/18 03:02 02:33 Hospitalization Ordered by Katherin Driscoll MD for Inpatient Admission. Preliminary dw diagnosis is Hypoglycemia, unspecified. Bed requested for Telemetry/MedSurg (Inpatient). Status is Inpatient Admission. Condition is Stable. Problem is new. Symptoms have improved. UTI on Admission? No. pm1 03:48 03:02 10/18/2018 02:33 Hospitalization Ordered by Katherin Driscoll MD for Inpatient fc Admission. Preliminary diagnosis is Hypoglycemia, unspecified. Bed requested for Telemetry/MedSurg (Inpatient). Status is Inpatient Admission. Condition is Stable. Problem is new. Symptoms have improved. UTI on Admission? No. dw 04:04 03:48 10/18/2018 02:33 Hospitalization Ordered by Katherin Driscoll MD for Inpatient ag4 Admission. Preliminary diagnosis is Hypoglycemia, unspecified. Bed requested for Telemetry/MedSurg (Inpatient). Status is Inpatient Admission. Condition is Stable. Problem is new. Symptoms have improved. UTI on Admission? No. fc 04:21 04:04 10/18/2018 02:33 Hospitalization Ordered by Katherin Driscoll MD for Inpatient rr5 Admission. Preliminary diagnosis is Hypoglycemia, unspecified. Bed requested for Telemetry/MedSurg (Inpatient). Status is Inpatient Admission. Condition is Stable. Problem is new. Symptoms have improved. UTI on Admission? No. ag4
[2018-10-18 03:04] LABS: Barbiturates NEGATIVE (NEGATIVE); Benzodiazepines NEGATIVE (NEGATIVE); Cocaine NEGATIVE (NEGATIVE); METHAMPHETAM NEGATIVE (NEGATIVE); Methadone NEGATIVE (NEGATIVE); Opiates POSITIVE (NEGATIVE); Phencyclidine NEGATIVE (NEGATIVE); THC Cannibis NEGATIVE (NEGATIVE)
[2018-10-18 03:16] LABS: Urine Blood 2+ (NEG); Urine Glucose NEGATIVE (NEG); Urine Protein 1+ (NEG); Urine Specific Gravity 1.015 (1.005-1.030)
[2018-10-18 03:17] LABS: Urine Bacteria <20 /HPF (<20); Urine Culture Reflex Order REFLEXED; Urine RBC >50 /HPF (NONE SEEN)
[2018-10-18] MEDS ORDERED: ACETAMINOPHEN 500 MG TAB PO PRN (03:35)
[2018-10-18] MEDS: D5 0.9 NS 1,000 ML IV SCH ×2 (04:00→19:50)
[2018-10-18 05:16] VITALS: BMI 31.8
--- NOTE | 2018-10-18 08:44 | P.HP ---
Certification for Inpatient Patient admitted to: Observation With expected LOS: <2 Midnights Patient will require the following post-hospital care: None Practitioner: I am a practitioner with admitting privileges, knowledge of patient current condition, hospital course, and medical plan of care. Services: Services provided to patient in accordance with Admission requirements found in Title 42 Section 412.3 of the Code of Federal Regulations Patient History Date of Service: 10/18/18 Reason for admission: AMS History of Present Illness: Patient is a 78-year-old female who came to the hospital with altered mentation. Patient has been having arthritic pains at home. She apparently took an old [place] according to her . Her workup in the ER revealed that she had some low blood sugars. Patient was found to have hypoglycemia. Patient was in the hospital few days ago and has some renal insufficiency. She did not have any significant medical changes that I am aware of. She is on glipizide. Her renal function is stable on this admission. She had a urinalysis which did not reveal a significant urinary tract infection either. Her blood sugars were in the 20s to 40s. She was given 1 amp of D50 and her blood sugars have improved. However she did drop her blood sugars once again so she was admitted to the hospital for further evaluation. Will check a hemoglobin A1c. If his running on the lower side we may discontinue her glipizide and maybe go home with low-dose metformin if she is able to tolerated. If she has had any issues with metformin then we may need to just hold off and do a sliding-scale going forward. We will assess her labs in the morning and make a decision depending on her mentation. Her lipase was also elevated and this will be repeated in the morning. She does not have any significant abdominal pain nor does she have any nausea and vomiting. Repeat in a.m.. Allergies codeine Adverse Reaction (Mild, Verified 10/12/18 20:11) Rash propoxyphene HCl [From Darvon] Adverse Reaction (Verified 10/12/18 20:11) Rash Home Medications: Aspirin 1 tab PO DAILY 10/03/18 Atorvastatin Calcium 1 tab PO DAILY 10/03/18 Cetirizine HCl [Zyrtec] 10 mg PO DAILY 10/03/18 Furosemide 20 mg PO DAILY 10/03/18 Gabapentin 1 tab PO BID 10/03/18 Hydrocodone 5/APAP 325 [[place] 5/325*] 1 tab PO Q6H PRN 10/03/18 Krill/[place]-3/Dha/Epa/Lipids [Krill Oil 350 mg Softgel] 1 cap PO DAILY 10/03/18 L.acidoph,Paracasei, B.lactis [Probiotic] 1 cap PO DAILY 10/03/18 Losartan Potassium 100 mg PO DAILY 10/03/18 Metoprolol Tartrate 1 tab PO BID 10/03/18 Mv-Mn/Folic Acid/Vit K/Pygf450 [Alive Once Daily Women 50 Plus] 1 tab PO DAILY 10/03/18 Omeprazole [Prilosec] 40 mg PO DAILY 10/03/18 Sennosides/Docusate Sodium [Senna Laxative Tablet] 2 tab PO BID 10/03/18 glipiZIDE [Glipizide] 1 tab PO BID 10/03/18 ALPRAZolam [Xanax*] 0.25 mg PO BID PRN #15 tab 10/07/18 Cephalexin [Keflex] 500 mg PO DAILY #14 cap 10/14/18 - Past Medical/Surgical History Has patient received pneumonia vaccine in the past: Yes Diabetic: Yes -: HTN -: NIDDM -: Pancreatitis -: HLD -: CHRONIC PAIN -: ARTHRITIS -: NEUROPATHY -: ACS -: CAD -: [place] -: [place], recurrent -: AFIB -: Hysterectomy -: Bladder suspension x3 -: Cholecystectomy -: Heart catheterization with stent -: ERCP with removal of stone -: Lithrotripsy -: Cystoscopy Psychosocial/ Personal History: Patient is . She has no children - Family History Father Medical History: Heart disease Brother Medical History: Heart disease - Social History Smoking Status: Never smoker Alcohol use: No CD- Drugs: No Caffeine use: No Place of Residence: Home Review of Systems 10-point ROS is otherwise unremarkable Physical Examination - Vital Signs Temperature: 97 F Blood Pressure: 136/63 Pulse: 51 Respirations: 20 Pulse Ox (%): 98 - Physical Exam General: In no apparent distress, Oriented x3, Other ( Lethargic but answers questions appropriately) HEENT: Atraumatic, PERRLA, Mucous membr. moist/pink, EOMI, Sclerae nonicteric Neck: Supple, 2+ carotid pulse no bruit, No LAD, Without JVD or thyroid abnormality Respiratory: Clear to auscultation bilaterally, Normal air movement Cardiovascular: Regular rate/rhythm, Normal S1 S2, No murmurs Gastrointestinal: Normal bowel sounds, Soft and benign, Non-distended, No tenderness Musculoskeletal: Tenderness ( in the bilateral knees but no swelling noted) Integumentary: No rashes Neurological: Normal tone, Sensation intact, Cranial nerves 3-12 intact, Normal affect, Abnormal gait, Abnormal strength Lymphatics: No axilla or inguinal lymphadenopathy - Studies Laboratory Data (last 24 hrs) 10/17/18 23:54: Creatinine 1.26 10/17/18 23:54: WBC 12.6 H D, Hgb 13.7, Hct 40.2, Plt Count 282 D 10/17/18 23:54: Sodium 144, Potassium 3.4 L, BUN 11, Creatinine 1.23, Glucose 28 L*, Total Bilirubin 0.2, AST 21, ALT 19, Alkaline Phosphatase 112, Lipase 645 H Assessment & Plan - Problems (Diagnosis) (1) Hypoglycemia Current Visit: Yes Status: Acute (2) Atrial fibrillation with RVR Current Visit: No Status: Acute (3) Coronary artery disease Current Visit: No Status: Chronic Qualifiers: Coronary Disease-Associated Artery/Lesion type: [place] artery [place] vs. 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 (5) Hypertension Current Visit: No Status: Chronic Qualifiers: Hypertension type: essential hypertension Qualified Code(s): I10 - Essential (primary) hypertension (6) Altered mental status Current Visit: Yes Status: Acute - Plan -IV hydration -no IV antibiotics at this time -cultures are pending -check renal function and electrolytes; HgA1c -may need to check thyroid studies and cortisol studies -bed check in place -physical therapy evaluation once mentation is improved - adjust oral hypoglycemics - hold [place] - check a sed rate as well as a CRP and may need rheumatologic workup Discharge Plan: Home Plan to discharge in: 48 Hours - Advance Directives Does patient have a Living Will: No Does patient have a Durable POA for Healthcare: No - Code Status/Comfort Care Code Status Assessed: Yes Code Status: Full Code Critical Care: No Time Spent Managing PTS Care (In Minutes): 45
[2018-10-18 11:39] LABS: Magnesium 1.9 mg/dL (1.8-2.4); Phosphorus 2.9 mg/dL (2.5-4.9); Potassium 4.3 mmol/L (3.5-5.1)
[2018-10-18 16:13] LABS: C-Reactive Protein 13.8 mg/L (<3.00); Uric Acid 6.1 mg/dL (2.6-6.0)
[2018-10-18] MEDS: MORPHINE 2 MG/ML SYR IV PRN ×2 (19:50→22:20)
[2018-10-18] MEDS: TEMAZEPAM 15 MG CAP PO PRN (21:54)
[2018-10-19] MEDS: MORPHINE 4 MG/ML SYR IV PRN ×6 (02:25→22:58)
[2018-10-19 02:35] LABS: Absolute Lymphocytes (CBC) 2.2 K/uL (0.7-4.9); Basophils % 0.8 % (0-1.3); Hematocrit 34.3 % (36.0-45.0); Lymphocytes % 24.3 % (15.3-44.8); RBC Red Blood Cell Count 3.69 M/uL (3.86-4.86)
[2018-10-19 02:49] LABS: Albumin 2.2 g/dL (3.4-5.0); Bilirubin Total 0.1 mg/dL (0.2-1.0); Protein, Total 5.6 g/dL (6.4-8.2)
--- NOTE | 2018-10-19 11:05 | RAD REPORT ---
EXAM DESCRIPTION: CT - Abdomen Pelvis W Contrast - 10/18/2018 6:40 am COMPARISON: CT abdomen pelvis September 24, 2018 CLINICAL HISTORY: Dysuria, abdominal pain TECHNIQUE: Multiple helical axial images were obtained through the abdomen and pelvis using intraven ous contrast. Coronal and sagittal reformatted images were obtained. All CT scans at this facility use dose modulation, iterative reconstruction, and/or weight-based dosi ng when appropriate to reduce radiation dose to as low as reasonably achievable. FINDINGS: Lung bases: Appear unremarkable. Liver: Slight low-attenuation is present suggestive of fatty changes. Gallbladder/biliary: Cholecystectomy changes are demonstrated. Pneumobilia is again noted. Pancreas: Unremarkable. No evidence of ductal enlargement. Spleen: Appears unremarkable. No splenomegaly. Adrenals: Unremarkable. Kidneys and ureters: Right-sided ureteral stent demonstrated with proximal coil in the right renal pe lvis and distal coil in the bladder. Mild right hydronephrosis present. Normal enhancement. Small amount of calcific density along the mid to distal right ureteral stent is demonstrated measuring ro ughly 4 cm in length. There is a 1.3 cm cyst in the mid to inferior pole of the left kidney. Interval removal of a large stone in the right renal pelvis seen previously. Bladder: Unremarkable. Pelvic organs: Post hysterectomy changes noted. Bowel: No evidence of bowel obstruction. No bowel wall thickening. Appendix is not well seen. Other: Ventral abdominal hernia mesh with associated possible fluid collection within the anterior mi d abdomen beneath the abdominal wall again noted appearing unchanged. Vasculature: Aortic atherosclerosis is noted. Peritoneum: No free air. No significant free fluid. Lymph nodes: Unremarkable. Soft tissues: Unremarkable. Bones: Degenerative changes of the lumbar spine noted. IMPRESSION: Mild right hydronephrosis with right ureteral stent in place. Calcific density along the mid to distal right ureteral stent suggestive of ureteral stones. Electronically signed by: Magen Lopez MD 10/18/2018 2:02 AM CDT Due to temporary technical issues with the PACS/Fluency reporting system, reports are being signed by the in house radiologist as a courtesy to ensure prompt reporting. The interpreting radiologist is f ully responsible for the content of the report.
[2018-10-19] MEDS: TRAMADOL HCL 50 MG TAB PO PRN ×2 (13:10→20:46)
[2018-10-19] MEDS: D5 0.9 NS 1,000 ML IV SCH ×2 (13:50)
--- NOTE | 2018-10-19 16:36 | P.PN ---
Subjective Date of Service: 10/19/18 Chief Complaint: AMS Subjective: Improving Patient seen and examined at bedside. at bedside. Chart reviewed and case discussed with nursing staff. Mentation back to normal Patient continues to complain of excruciating pain, even when touching. She refuses to let me examine her as she states it hurts even when somebody touches her. It is noted that patient sleeps well, only when nurse enters the room, she start to ask for pain medication. Review of Systems 10-point ROS is otherwise unremarkable Physical Examination - Vital Signs Temperature: 97.7 F Blood Pressure: 176/79 Pulse: 78 Respirations: 18 Pulse Ox (%): 95 - Physical Exam General: Alert, Oriented x3, Moderate distress (But will not let me examine) HEENT: Atraumatic, PERRLA, EOMI Neck: Supple, JVD not distended Respiratory: Clear to auscultation bilaterally, Normal air movement Cardiovascular: Regular rate/rhythm, Normal S1 S2 Gastrointestinal: Normal bowel sounds, No tenderness Musculoskeletal: No swelling, No contractures, No erythema, Tenderness Integumentary: No rashes Neurological: Normal speech, Normal tone, Normal affect Assessment And Plan - Plan (1) Hypoglycemia (2) Atrial fibrillation with RVR (3) Coronary artery disease (4) Diabetes mellitus (5) Hypertension (6) Altered mental status - Plan -IV hydration -no IV antibiotics at this time -cultures still pending -A1c low at 5.6. We will likely discontinue glipizide upon discharge. -physical therapy evaluation once mentation is improved -continue to hold [place] -Patient may need rheumatologic workup as an outpatient. DVT prophylaxis: Lovenox GI prophylaxis: None Diet: Regular Disposition: Pending symptomatic improvement. Anticipate discharge home in the next 24 hr
[2018-10-19] MEDS: ONDANSETRON 4 MG/2 ML VIAL IV PRN ×2 (21:35→22:00)
[2018-10-20] MEDS: TEMAZEPAM 15 MG CAP PO PRN ×2 (01:02→21:09)
[2018-10-20] MEDS: TRAMADOL HCL 50 MG TAB PO PRN (02:02)
[2018-10-20] MEDS: MORPHINE 4 MG/ML SYR IV PRN (03:09)
[2018-10-20] MEDS: D5 0.9 NS 1,000 ML IV SCH (08:19)
[2018-10-20] MEDS: ONDANSETRON 4 MG/2 ML VIAL IV PRN (10:16)
--- NOTE | 2018-10-20 10:55 | P.PN ---
Subjective Date of Service: 10/20/18 Chief Complaint: AMS Patient seen and examined at bedside. at bedside. Chart reviewed and case discussed with nursing staff. Patient continues to complain of excruciating pain, even when touching. She refuses to let me examine her as she states it hurts even when somebody touches her. It is noted that patient sleeps well, only when nurse enters the room, she start to ask for pain medication. Overnight, she did receive IV morphine. This morning, she seems to be more confused and drowsy. She is alert oriented x2, not oriented to time. States she is very sleepy Review of Systems 10-point ROS is otherwise unremarkable Physical Examination - Vital Signs Temperature: 97.2 F Blood Pressure: 131/60 Pulse: 77 Respirations: 18 Pulse Ox (%): 95 - Physical Exam General: Alert, In no apparent distress, Oriented x2, Other (Drowsy) HEENT: Atraumatic, PERRLA, EOMI Neck: Supple, JVD not distended Respiratory: Clear to auscultation bilaterally, Normal air movement Cardiovascular: Regular rate/rhythm, Normal S1 S2 Gastrointestinal: Normal bowel sounds, No tenderness Musculoskeletal: No tenderness Integumentary: No rashes Neurological: Normal speech, Normal tone, Normal affect Lymphatics: No axilla or inguinal lymphadenopathy - Studies Microbiology Data (last 24 hrs): 10/18/18 02:46 Clean Catch Urine [place] Count - Final 10/18/18 02:46 Clean Catch Urine - Final No growth. Assessment And Plan - Plan (1) Hypoglycemia (2) Atrial fibrillation with RVR (3) Coronary artery disease (4) Diabetes mellitus (5) Hypertension (6) Altered mental status - Plan -IV hydration -no IV antibiotics at this time -cultures negative -A1c low at 5.6. We will likely discontinue glipizide upon discharge. -physical therapy evaluation today -continue to hold [place] and other opioid pain medications. -Patient may need rheumatologic workup as an outpatient. DVT prophylaxis: Lovenox GI prophylaxis: None Diet: Regular Disposition: Pending symptomatic improvement. Anticipate discharge home in the next 24 hr
[2018-10-20] MEDS ORDERED: PROMETHAZINE 25 MG/ML VIAL IV ONE (18:00)
[2018-10-21] MEDS: TRAMADOL HCL 50 MG TAB PO PRN ×2 (06:26→11:56)
[2018-10-21 07:50] VITALS: O2SAT 91
[2018-10-21] MEDS ORDERED: ALPRAZOLAM 0.25 MG TABLET PO PRN (11:11)
[2018-10-21 12:33] VITALS: BP 136/62; TEMP 98.4
--- NOTE | 2018-10-21 14:42 | P.SSS ---
Patient History Date of Service: 10/21/18 Reason for admission: AMS History of Present Illness: Patient is a 78-year-old female who came to the hospital with altered mentation. Patient has been having arthritic pains at home. She apparently took an old [place] according to her . Her workup in the ER revealed that she had some low blood sugars. Patient was found to have hypoglycemia. Patient was in the hospital few days ago and has some renal insufficiency. She did not have any significant medical changes that I am aware of. She is on glipizide. Her renal function is stable on this admission. She had a urinalysis which did not reveal a significant urinary tract infection either. Her blood sugars were in the 20s to 40s. She was given 1 amp of D50 and her blood sugars have improved. However she did drop her blood sugars once again so she was admitted to the hospital for further evaluation. Will check a hemoglobin A1c. If his running on the lower side we may discontinue her glipizide and maybe go home with low-dose metformin if she is able to tolerated. If she has had any issues with metformin then we may need to just hold off and do a sliding-scale going forward. We will assess her labs in the morning and make a decision depending on her mentation. Her lipase was also elevated and this will be repeated in the morning. She does not have any significant abdominal pain nor does she have any nausea and vomiting. Repeat in a.m. Allergies codeine Adverse Reaction (Mild, Verified 10/12/18 20:11) Rash propoxyphene HCl [From Darvon] Adverse Reaction (Verified 10/12/18 20:11) Rash Home medications list reviewed: Yes Home Medications: Aspirin 1 tab PO DAILY 10/03/18 Atorvastatin Calcium 10 mg PO DAILY 10/03/18 Cetirizine HCl [Zyrtec] 10 mg PO DAILY 10/03/18 Furosemide 20 mg PO BID 10/03/18 Gabapentin 300 mg PO BID 10/03/18 Krill/[place]-3/Dha/Epa/Lipids [Krill Oil 350 mg Softgel] 1 cap PO DAILY 10/03/18 L.acidoph,Paracasei, B.lactis [Probiotic] 1 cap PO DAILY 10/03/18 Losartan Potassium 100 mg PO DAILY 10/03/18 Metoprolol Tartrate 25 mg PO BID 10/03/18 Mv-Mn/Folic Acid/Vit [id number] [Alive Once Daily Women 50 Plus] 1 tab PO DAILY 10/03/18 Omeprazole [Prilosec] 40 mg PO DAILY 10/03/18 Sennosides/Docusate Sodium [Senna Laxative Tablet] 2 tab PO BID 10/03/18 ALPRAZolam [Xanax*] 0.25 mg PO BID PRN #15 tab 10/07/18 Amitriptyline [Elavil*] 10 mg PO BEDTIME #30 tab 10/21/18 traMADol HCL [Ultram*] 50 mg PO Q6H PRN tab 10/21/18 - Past Medical/Surgical History Has patient received pneumonia vaccine in the past: Yes Diabetic: Yes -: HTN -: NIDDM -: Pancreatitis -: HLD -: CHRONIC PAIN -: ARTHRITIS -: NEUROPATHY -: ACS -: CAD -: NV -: Falls, recurrent -: AFIB -: Hysterectomy -: Bladder suspension x3 -: Cholecystectomy -: Heart catheterization with stent -: ERCP with removal of stone -: Lithrotripsy -: Cystoscopy Psychosocial/ Personal History: Patient is . She has no children - Family History Father -: Heart disease Brother -: Heart disease - Social History Smoking Status: Never smoker Alcohol use: No CD- Drugs: No Caffeine use: No Place of Residence: Home Review of Systems 10-point ROS is otherwise unremarkable Physical Examination - Vital Signs Temperature: 98.4 F Blood Pressure: 136/62 Pulse: 86 Respirations: 16 Pulse Ox (%): 92 - Physical Exam General: Alert, In no apparent distress, Oriented x3 HEENT: Atraumatic, PERRLA, Mucous membr. moist/pink, EOMI, Sclerae nonicteric Neck: Supple, 2+ carotid pulse no bruit, No LAD, Without JVD or thyroid abnormality Respiratory: Clear to auscultation bilaterally, Normal air movement Cardiovascular: Regular rate/rhythm, Normal S1 S2 Gastrointestinal: Normal bowel sounds, No tenderness Musculoskeletal: No tenderness Integumentary: No rashes Neurological: Normal gait, Normal speech, Normal strength at 5/5 x4 extr, Normal tone, Normal affect Lymphatics: No axilla or inguinal lymphadenopathy Treatment Summary: (1) Hypoglycemia (2) Atrial fibrillation with RVR (3) Coronary artery disease (4) Diabetes mellitus (5) Hypertension (6) Altered mental status Patient was given IV fluids for hydration. Her cultures remained negative. her A1c was low at 5.6, therefore glipizide was discontinued upon discharge. Her pain medications were held as they may have caused her to be altered. PT evaluation was done and PT recommended placement at a [facility] facility for further PT/rehab SW was consulted and patient was accepted at [facility]. She otherwise remained stable throughout the stay. She was then transferred to [facility] when she was accepted. - Disposition Discharge Date: 10/21/18 Disposition: TRANSFER TO [facility] Condition: FAIR Patient Discharge Instructions: Please follow up with your primary care physician in 2-3 days. Return to the Emergency room for worsenign symptoms Diet: AHA Activity: Ad christina Time Spent Managing Pts Care (In Minutes): 55
[2018-10-21] MEDS ORDERED: GABAPENTIN 300 MG CAP PO SCH (21:00)
== END 2018-10-21 17:15 ==
LOC: ER 22:00 → 4TH 10-18 03:36
PROVIDERS: ADMIT Hospitalist; ATTEND Family Medicine
DX: E11.649 Type 2 diabetes mellitus with hypoglycemia without coma (principal); I10 Essential (primary) hypertension; E78.5 Hyperlipidemia, unspecified; G89.29 Other chronic pain; I25.10 Atherosclerotic heart disease of native coronary artery without angina pectoris; I25.2 Old myocardial infarction; I48.2 Chronic atrial fibrillation; Z79.4 Long term (current) use of insulin
CPT/HCPCS: 96361; 87088; 85025 ×2; 80048 ×2; 36415 ×2; 83735; 84100; 82962 ×21; 80076; 84550; 80307 ×8; 85652; 83036; 83690 ×2; 80053; 86140; 74177; 73562; 97110 ×2; 97112 ×2; 97161; 97530 ×4; 51702; 96375; 96374; 99285; Q9967; J2550; J2270 ×2; J2405 ×3; G0378 ×2; 81003; 81015; 87086

== ENCOUNTER 2018-11-09 13:19 | Inpatient (IN) | payer OTHER ==
--- OUTSIDE RECORDS SUMMARY | 2018-11-09 13:22 | XMS REPORT | Clinical Summary ---
:1940 [facility] [address] [place] [address] Care Team Providers Name Role Phone PinoRoscoe [...] Active chewable tablet mouth daily. omeprazole Take 40 mg by 0 08/18/2018 [...] 08/18/2018 Discontinued 20 MG tablet mouth daily. omeprazole Take 1 120 capsule 1 08/18/2018 10/17/2018 (PRILOSEC) 40 MG capsule (40 capsule mg [...] Anesthesia Event Gastroenterology Chance Duque MD 08/10/2018 [facility] Internal [facility] Acute encephalopathy; - Encounter Medicine MD [...] hyperglycemia, without long-term current use of insulin (HCC); Essential hypertension; Metabolic encephalopathy; Sleep apnea with cognitive complaints; 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HCC); Severe muscle deconditioning; Atrial fibrillation with RVR (HCC) 08/10/2018 Travel 08/10/2018 Telephone Internal Medicine Idris Joseph Abdominal Pain MD [place] 08/08/2018 Telephone Internal Medicine Kassy Jurado MD 08/07/2018 Telephone Internal Medicine Idris Joseph Abdominal Pain MD [place] after 11/08/2017 Immunizations Name Dates Previously Given Next Due [...] Not on file Implants Implanted Type Area [employer] Outfit Supervisor Device Shelf Model / Identifier Expiration Serial / Date Lot Device Clsr Angio-Seal Vip 6fr [id number] - [id number] Cardiovascular N/A: Groin [facility] QUANG 11/16/2016 [id number] / Implanted: Qty: 1 on 03/21/2016 by Miguel Ángel Chaudhry MD MED: CARDIAC / SURG [id number] Synergy Stents-Coronary N/A: [place] 01/15/2017 [id number] / Implanted: Qty: 1 on 03/21/2016 by Miguel Ángel Chaudhry MD Coronary SCIENTIFIC / [id number] Procedures Procedure Name Priority Date/Time Associated Comments [...] are in the results section. CT ABDOMEN/PELVIS WITH Routine 08/12/2018 11:55 Results for this & WITHOUT IV CONTRAST AM CDT procedure are in the results section. CT BRAIN WITHOUT IV [...] are in the results section. XR ABDOMEN / KUB 1 Routine 08/11/2018 10:50 Results for this VIEW AM CDT procedure are in the results [...] procedure are in the results section. after 11/08/2017 Results RHYTHM STRIP - SCAN (08/19/2018 11:40 AM CDT)Only the most recent of2 resultswithin the time period is included. Narrative Performed At EKG-SCANNED (08/19/2018 11:40 AM CDT) Narrative Performed At US Renal with Doppler (08/18/2018 4:03 PM CDT) Specimen Narrative Performed At FINAL REPORT Nearpod Renal ultrasound and Duplex Doppler ultrasound of [...] MD Report Verified Date/Time:08/18/2018 16:58:13 Reading Location: [address] Radiology Reading Room Procedure Note Interface, [...] Report Verified Date/Time: 08/18/2018 16:58:13 Reading Location: [address] Radiology Reading Room Performing Organization Address City/State/Zipcode Phone Number [facility] POC-Glucose meter (08/18/2018 7:41 AM CDT)Only the most recent of29 resultswithin the time period is included. POC-Glucose Meter 141 (H)Comment: TESTED AT 70 - 110 mg/dL [facility] [address] [facility] [address] Specimen Blood Performing Organization Address City/[facility]/Zipcode Phone Number [facility] [address] [place] [phone] [place] CBC (Hemogram only) (08/18/2018 5:01 AM CDT)Only the most recent of7 resultswithin the time period is included. WBC 11.7 (H) 3.5 - 10.5 K/L [facility] RBC 3.29 (L) 3.93 - 5.22 M/L [facility] Hemoglobin 10.4 (L) 11.2 - 15.7 GM/DL [facility] Hematocrit 31.8 (L) 34.1 - 44.9 % [facility] MCV 96.7 (H) 79.4 - 94.8 fL [facility] MCH 31.6 25.6 - 32.2 pg [facility] MCHC 32.7 32.2 - 35.5 GM/DL [facility] RDW 16.6 (H) 11.7 - 14.4 % [facility] Platelets 175 150 - 450 K/CU MM [facility] MPV 11.4 9.4 - 12.3 fL [facility] nRBC 0 0 - 0 /100 WBC [facility] Specimen Blood Performing Organization Address City/[facility]/Zipcode Phone Number [facility] [address] [place] [address] CENTER Magnesium (08/18/2018 5:01 AM CDT)Only the most recent of8 resultswithin the time period is included. Magnesium 1.9 1.6 - 2.6 mg/dL [facility] Specimen Blood Performing Organization Address City/[facility]/Zipcode Phone Number [facility] [address] [place] [address] [place] Hepatic function panel (08/18/2018 5:01 AM CDT)Only the most recent of8 resultswithin the time period is included. Protein, Total 5.4 (L) 6.0 - 8.3 gm/dL [facility] Albumin 2.9 (L) 3.5 - 5.0 g/dL [facility] Total Bilirubin 0.4 0.2 - 1.2 mg/dL [facility] Bilirubin, Direct 0.2 0.1 - 0.5 mg/dL [facility] Alkaline Phosphatase 73 40 - 150 U/L [facility] AST 20 5 - 34 U/L [facility] ALT 17 6 - 55 U/L [facility] Specimen Blood Performing Organization Address City/State/Zipcode Phone Number [facility] [address] [place] [address] [place] Basic Metabolic Panel (08/18/2018 5:01 AM CDT)Only the most recent of8 resultswithin the time period is included. Sodium 134 (L) 136 - 145 meq/L [facility] Potassium 4.2 3.5 - 5.1 meq/L [facility] Chloride 103 98 - 107 meq/L [facility] CO2 28 22 - 29 meq/L [facility] BUN 12 7 - 21 mg/dL [facility] Creatinine 0.74 0.57 - 1.25 mg/dL [facility] Glucose 124 (H) 70 - 105 mg/dL [facility] Calcium 9.9 8.4 - 10.2 mg/dL [facility] EGFR 76Comment: ESTIMATED GFR IS mL/min/1.[address] [facility] NOT ACCURATE [facility] CLEARANCE IN PREDICTING GLOMERULAR FILTRATION RATE. ESTIMATED GFR IS NOT APPLICABLE FOR DIALYSIS PATIENTS. Specimen Blood Performing Organization Address City/State/Zipcode Phone Number [facility] MEDICAL [address] [place] [address] CENTER NM myocardial perfusion PET (rest and stress) (08/17/2018 2:17 PM CDT) Specimen Narrative Performed At FINAL REPORT [facility] PROCEDURE: MYOCARDIAL PERFUSION PET IMAGING (Rest/Stress) CPT CODE: 22917 INDICATION: Define extent of known CAD, chest [...] MD Report Verified Date/Time:08/17/2018 15:22:38 Reading Location: [address] Reading Room Procedure Note Interface, External Ris In - 08/17/2018 3:24 PM CDT FINAL REPORT PROCEDURE: MYOCARDIAL PERFUSION PET IMAGING (Rest/Stress) CPT CODE: 84983 INDICATION: Define extent of known CAD, chest [...] Report Verified Date/Time: 08/17/2018 15:22:38 Reading Location: [place] [address] Reading Room Performing Organization Address City/State/Zipcode Phone [...] 2:32:36 PM Confirmed by MD TEE JORGE ([id number]) on 09/24/2018 2:05:23 PM Procedure Note Interface, [...] 2:32:36 PM Confirmed by MD TEE JORGE ([id number]) on 09/24/2018 2:05:23 PM Performing Organization Address City/State/Zipcode Phone Number GE MUSE CBC with platelet count + automated diff (08/16/2018 12:56 PM CDT)Only the most recent of2 resultswithin the time period is included. WBC 12.9 (H) 3.5 - 10.5 K/L [facility] RBC 3.74 (L) 3.93 - 5.22 M/L [facility] Hemoglobin 11.6 11.2 - 15.7 GM/DL [facility] Hematocrit 35.0 34.1 - 44.9 % [facility] MCV 93.6 79.4 - 94.8 fL [facility] MCH 31.0 25.6 - 32.2 pg [facility] MCHC 33.1 32.2 - 35.5 GM/DL [facility] RDW 16.0 (H) 11.7 - 14.4 % [facility] Platelets 165 150 - 450 K/CU MM [facility] MPV 10.1 9.4 - 12.3 fL [facility] nRBC 0 0 - 0 /100 WBC [facility] % Neutros 84 % [facility] % Lymphs 7 % [facility] % Monos 7 % [facility] % Eos 2 % [facility] % Baso 0 % [facility] # Neutros 10.89 (H) 1.56 - 6.13 K/L [facility] # Lymphs 0.90 (L) 1.18 - 3.74 K/L [facility] # Monos 0.84 (H) 0.24 - 0.36 K/L [facility] # Eos 0.20 0.04 - 0.36 K/L [facility] # Baso 0.05 0.01 - 0.08 K/L [facility] Immature 1 0 - 1 % [facility] CENTER Specimen Blood Performing Organization Address City/State/Zipcode Phone Number [facility] [address] [place] [address] CENTER Comprehensive metabolic panel (08/16/2018 12:56 PM CDT) Protein, Total 5.4 (L) 6.0 - 8.3 gm/dL [facility] Albumin 2.9 (L) 3.5 - 5.0 g/dL [facility] Alkaline Phosphatase 86 40 - 150 U/L [facility] Total Bilirubin 0.4 0.2 - 1.2 mg/dL [facility] Sodium 135 (L) 136 - 145 meq/L [facility] Potassium 3.7 3.5 - 5.1 meq/L [facility] Chloride 102 98 - 107 meq/L [facility] CO2 28 22 - 29 meq/L [facility] BUN 10 7 - 21 mg/dL [facility] Creatinine 0.83 0.57 - 1.25 mg/dL [facility] Glucose 150 (H) 70 - 105 mg/dL [facility] Calcium 10.0 8.4 - 10.2 mg/dL [facility] AST 25 5 - 34 U/L [facility] ALT 23 6 - 55 U/L [facility] EGFR 66Comment: ESTIMATED GFR mL/min/1.73 sq m [facility] IS NOT ACCURATE [facility] CREATININE CLEARANCE IN PREDICTING GLOMERULAR FILTRATION RATE. ESTIMATED GFR IS NOT APPLICABLE FOR DIALYSIS PATIENTS. Specimen Blood Performing Organization Address City/State/Zipcode Phone Number [facility] [address] [place] [address] CENTER REPORT OF PROCEDURE - ENDOSCOPY URL [...] MD Report Verified Date/Time:08/15/2018 17:37:26 Reading Location: [facility] Ortho Consult Reading Room Procedure Note Interface, [...] Report Verified Date/Time: 08/15/2018 17:37:26 Reading Location: [facility] [id number] Ortho Consult Reading Room Performing Organization Address City/State/Zipcode Phone Number GE RIS Tissue Exam (08/15/2018 4:52 PM CDT) Case Report Surgical Pathology Report Case: [id number] [facility] Authorizing Provider:Roddy Bernardected: 08/15/[address] [place] [address] Ordering Location: [address] Received: 08/17/2018 0800 Service Pathologist: Joanne Gu MD Specimens: A) - Duodenal, ULCERS BX B) - Biopsy, Gastric, BX DIAGNOSIS This final report is issued to give the result of immunohistochemical study for Helicobacter pylori on specimen B: [facility] A. DUODENUM, ULCERS, ENDOSCOPIC BIOPSY: - [...] MALIGNANCY NOTED Signing Pathologist Direct Phone Line: [phone] CPT Code(s) 77758 X 2; 00758; 34957 [facility] CLINICAL HISTORY Common bile duct stones [facility] SPECIMEN SOURCE A. Duodenal ulcers biopsy; B. [facility] Biopsy, gastric biopsy [facility] GROSS DESCRIPTION The case is received in two parts both labeled with the patient's name, Judy Calhoun, date of 1940 and accession number [id number] which corresponds to accompanying requisition page labeled with the same name and accession number. [facility] Part A is received in formalin labeled [...] in cassette B1. RP/pl MICROSCOPIC DESCRIPTION PERFORMED [facility] SPECIAL STUDIES The interpretation of this case included the use of immunohistochemistry or special stains. [facility] WARTHIN-STARRY; HELICOBACTER PYLORI [facility] Control Slides Examined: In-house known positive controls were evaluated along with the test tissue. These control slides run alongside of the patients sample show appropriate staining. Internal posit emily and negative controls when available are evaluated Immunohistochemistry technical testing was performed at [facility], Pathology Laboratory where it was [...] (specimen) Performing Organization Address City/State/Zipcode Phone Number [facility] [address] [place] [address] brain without IV contrast (08/12/2018 11:55 AM CDT) Specimen Narrative Performed At FINAL REPORT [facility] CT, BRAIN, WITHOUT CONTRAST CLINICAL INDICATION:Confusion/delirium, altered [...] MD Report Verified Date/Time:08/12/2018 12:57:37 Reading Location: [facility] Reading Room Procedure Note Interface, External [...] Report Verified Date/Time: 08/12/2018 12:57:37 Reading Location: [facility] Radiology Reading Room Performing Organization Address City/State/Zipcode Phone Number Nearpod CT abdomen/pelvis without & with IV contrast (08/12/2018 11:55 AM CDT) Specimen Narrative Performed At FINAL REPORT [facility] CT abdomen and pelvis without and [...] MD Report Verified Date/Time:08/12/2018 13:32:12 Reading Location: [facility] Diagnostic Imaging Reading Room - [place] [address] Procedure Note Interface, External Ris In - [...] Report Verified Date/Time: 08/12/2018 13:32:12 Reading Location: [facility] Diagnostic Imaging Reading Room - [place] [address] Performing Organization Address City/[facility]/Zipcode Phone Number RIS Lactic acid, venous (08/12/2018 4:36 AM CDT)Only the most recent of2 resultswithin the time period is included. Lactate, Venous 0.9Comment: Specimen 0.5 - 2.2 mmol/L [facility] slightly hemolyzed [facility] CENTER Specimen Blood Performing Organization Address City/[facility]/Zipcode Phone Number [address] [address] CENTER Folate, RBC (08/12/2018 4:36 AM CDT) Folate, Rbc >1000 >280 ng/mL RBC [facility] Specimen Blood Narrative Performed At Performing Lab [facility] EZ [facility] [address] [place] [address] Jerica Cooney MD, PhD, JACKIE Performing Organization Address City/State/[facility] Cent[facility]ode Phone Number [facility] [place] [address] [facility] [address] [facility] Vitamin B12 (08/12/2018 4:35 AM CDT) Vitamin B12 1,063 (H) 213 - 816 pg/mL [facility] Specimen Blood Performing Organization Address [facility] Cent[facility]ode Phone Number [address] [address] [phone] CENTER Troponin I (08/12/2018 12:51 AM CDT)Only the most recent of3 resultswithin the time period is included. Troponin I 0.02 0.00 - 0.03 ng/mL [facility] Specimen Blood Narrative Performed At Troponin I (TnI) levels must be interpreted [facility] in the context of the presenting symptoms [...] disease, and persistent tachyarrhythmia. Performing Organization Address [facility] Centercode Phone Number [place] [phone] [place] [address] [phone] CENTER ECHOCARDIOGRAM REPORT - SCAN (08/11/2018 9:11 PM CDT) Narrative Performed At Procalcitonin (08/11/2018 8:46 PM CDT) Procalcitonin <0.05 <0.05 ng/mL [facility] Specimen Blood Narrative Performed At SEPSIS RISK (ng/mL) [facility] Low:0.05-0.50 Intermediate: 0.51-2.00 High: >=2.01 Performing Organization Address City/[facility]/Zipcode Phone Number [address] [address] [phone] CENTER ECG 12 lead (08/11/2018 3:42 PM CDT)Only the most recent of2 resultswithin the time period is included. Specimen Narrative Performed At Ventricular Rate 71 BPM GE [facility]USE Atrial Rate 71 BPM P-R Interval 140 ms QRS Duration 78 ms Q-T Interval 326 ms QTC Calculation(Bazett) 354 ms P [place] 1 degrees R [place] 31 degrees T [place] 124 degrees Normal sinus rhythm Nonspecific ST [...] 326 ms QTC Calculation(Bazett) 354 ms P [place] 1 degrees R [place] 31 degrees T [place] 124 degrees Normal sinus rhythm Nonspecific ST and T wave abnormality Abnormal ECG When compared with ECG of 10-AUG-2018 16:46, No significant change was found Confirmed by Nicole OROZCO MICHAEL ([id number]) on 08/12/2018 8:00:23 AM Performing Organization Address [facility] Phone Number [place] XR abdomen / KUB 1 view (08/11/2018 10:50 AM CDT) Specimen Narrative Performed At FINAL REPORT [facility] CLINICAL HISTORY: abdominal pain TECHNIQUE: Supine abdomen COMPARISON: CT 03/21/2016 IMPRESSION: The bowel gas pattern is nonspecific. Free air and air-fluid levels are not seen but cannot be definitively excluded on the supine view. Right upper quadrant surgical clips are again seen. Right lower abdominal hernia repair mesh is again seen. Signed: Ken Bunn MD Report Verified Date/Time:08/11/2018 11:42:12 Reading Location: [facility] Radiology Reading Room Procedure Note Interface, External [...] Report Verified Date/Time: 08/11/2018 11:42:12 Reading Location: [facility] Radiology Reading Room Performing Organization Address [facility] Phone Number [facility] POCT-HEMATOCRIT (08/11/2018 9:36 AM CDT) POC-Hematocrit 34 (L)Comment: TESTED AT 36 - 45 % [address] [address] Specimen Blood Performing Organization Address [facility] Phone Number [address] [address] [phone] [place] POCT-HEMOGLOBIN (08/11/2018 9:36 AM CDT) POC-Hemoglobin 11.6 (L)Comment: TESTED AT 12.0 - 15.0 g/dL [address] [address]UM[place] AT [address] [address] Specimen Blood Performing Organization Address [facility] Phone Number [address] [phone] [place] POCT-GLUCOSE (08/11/2018 9:36 AM CDT) POC-Glucose 165 (H)Comment: TESTED AT 70 - 110 mg/dL [address] [address] Specimen Blood Performing Organization Address [facility] Phone Number [address] [phone] CENTER POC-Sodium (08/11/2018 9:36 AM CDT) POC-Sodium 142Comment: TESTED AT [facility] 135 - 148 meq/L [address] [address] Specimen Blood Performing Organization Address City/[facility]/Zipcode Phone Number [address] [address] [phone] [place] POC-Potassium (08/11/2018 9:36 AM CDT) POC-Potassium 3.6Comment: TESTED AT [facility] 3.6 - 5.5 meq/L [address] [address] Specimen Blood Performing Organization Address City/[facility]/Zipcode Phone Number [address] [address] [place] POC-Calcium ionized (08/11/2018 9:36 AM CDT) POC-Calcium Ionized 1.50 (H)Comment: 1.12 - 1.27 mmol/L [facility] TESTED AT [address] [address] Specimen Blood Performing Organization Address City/[facility] Phone Number [address] [address] [phone] [place] POC-Blood gases, venous (08/11/2018 9:36 AM CDT) Temp. Celsius-POC 36.9 [facility] FIO2-POC 28Comment: TESTED AT [address] [address] pH, Venous-POC 7.344 7.320 - 7.420 [facility] PCO2, Venous-POC 48.8 41.0 - 51.0 mm Hg [facility] PO2, Venous-POC 36.0 25.0 - 40.0 mm Hg [facility] SO2, Venous-POC 66.0 40.0 - 70.0 % [facility] HCO3, Venous-POC 26.6 21.0 - 29.0 meq/L [facility] BE, Venous-POC 1.0 -2.0 - 3.0 meq/L [facility] Specimen Blood Performing Organization Address [facility]/Zipcode Phone Number [address] [address] [place] POC-Lactic Acid, Venous (08/11/2018 9:32 AM CDT) POC-Lactic Acid, Venous 0.9Comment: TESTED AT 0.9 - 1.7 mmol/L [place] [address] Specimen Blood Performing Organization Address [facility] [place] [address] [place] Urinalysis w/Microscopic + Reflex to Culture (08/11/2018 7:48 AM CDT) Color, UA Yellow [facility] Clarity, UA Clear [facility] Specific [place], UA 1.012 1.001 - 1.035 [facility] pH, UA 6.0 5.0 - 8.0 [facility] Protein, UA 10 mg/dL (A) Negative [facility] Glucose, UA 50 mg/dL (A) Negative [facility] Ketones, UA 20 mg/dL (A) Negative [facility] Bilirubin, UA Negative Negative [facility] Blood, UA Moderate (A) Negative [facility] Nitrite, UA Negative Negative [facility] Leukocytes, UA Negative Negative [facility] Urobilinogen, UA 0.2 0.2 - 1.0 mg/dL [facility] RBC, UA 105 /HPF [facility] WBC, UA 2 /HPF [facility] Specimen Source [facility] Specimen Urine Performing Organization Address City/[facility]/Zipcode Phone Number [facility] [address] [place] [address] [phone] [place] Blood Culture - Routine (Right Venipuncture) (08/11/2018 12:25 AM CDT)Only the most recent of2 resultswithin the time period is included. Result No growth in 5 days [facility] Specimen Blood Performing Organization Address City/State/Zipcode Phone Number [facility] [address] [place] [phone] [place] Lipase (08/11/2018 12:24 AM CDT) Lipase 23 8 - 78 U/L [facility] Specimen Blood Performing Organization Address City/[facility] Phone Number [address] [address] [phone] [place] XR chest 1 view portable / bedside [...] MD Report Verified Date/Time:08/10/2018 23:47:27 Reading Location: [facility] C0[facility] Consult Reading Room Procedure Note Interface, External [...] Verified Date/Time: 08/10/2018 23:47:27 Reading Location: [facility] B1 C013W Consult Reading Room Performing Organization Address City/State/Zipcode Phone Number [facility] TSH/Free T4 If Indicated (08/10/2018 7:00 PM CDT) TSH 0.30 (L) 0.35 - 4.94 uIU/mL [facility] Specimen Blood Performing Organization Address City/[facility] Cent[facility]ode Phone Number [address] [address] [phone] CENTER T4, free (08/10/2018 7:00 PM CDT) Free T4 0.86 0.70 - 1.48 ng/dL [facility] Specimen Blood Performing Organization Address [facility] Phone Number [address] [address] CENTER Ammonia (08/10/2018 7:00 PM CDT) Ammonia 29 18 - 72 mol/L [facility] Specimen Blood Performing Organization Address [facility] Phone Number [address] [address] CENTER PT/aPTT (08/10/2018 5:44 PM CDT) Protime 14.8 (H) 11.9 - 14.2 seconds [facility] INR 1.2 <=5.9 [facility] PTT 30.3 22.5 - 36.0 seconds [facility] Specimen Blood Narrative Performed At Effective 07/15/2018: PT Reference Range [facility] Change New: 11.9-14.2Previous: 11.7-14.7 RECOMMENDED COUMADIN/WARFARIN INR THERAPY RANGES STANDARD DOSE: 2.0-3.0Includes: PROPHYLAXIS for venous thrombosis, systemic embolization; TREATMENT for venous thrombosis and/or pulmonary embolus. HIGH RISK: Target INR is 2.5-3.5 for patients wiht mechanical heart valves. Performing Organization Address City/[facility]/Zipcode Phone Number [address] [address] CENTER Hemoglobin A1c (08/10/2018 5:44 PM CDT) Hemoglobin A1C 7.5 (H) 4.3 - 6.1 % [facility] Specimen Blood Performing Organization Address [facility] Phone Number [address] [address] C[place] B-type Natriuretic Factor (BNP) (08/10/2018 5:43 PM CDT) BNP 876 (H) 0 - 100 pg/mL [facility] Specimen Blood Performing Organization Address [facility] Phone Number [address] [address] CENTER 2D Echo W/Doppler(CW/PW/Color) (08/10/2018 4:59 PM CDT) Ejection Fraction [facility] [place] Specimen Narrative Performed At Transthoracic Echocardiography Report (TTE) [facility] [place] Demographics Patient Name JUDY CALHOUN Date of Study 08/10/2018 [id number] GenderFemale Visit Number [id number] RaceUnknon [id number] m Number [id number] Number Date of Birth1940 Referring Physician Shria Person Age78 year(s) 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 Charlene Vega [facility] Karan Phillip MD RD Physician Procedure Type [...] of Study 08/10/2018 Gender Female Visit Number [id number] Race Unknown Room Number 722 Number Date of 1940 Referring Physician Shira Person Age 78 year(s) 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 Charlene Vega [facility] Therapeutic Riding Instructor Ivonne Brown, Interpreting Stevie Santoro MD [facility] Physician Procedure Type of Study TTE procedure:2DECHO [...] Number [id number] CPACS after 11/08/2017 Insurance Payer Benefit Plan / Group Subscriber ID Type Phone Address [employer] xxxxxxxx Maps Contracted Advance Directives For more information, please contact:[address] [phone] Code Status Date Activated Date Inactivated Comments Full Code 08/10/2018 2:16 PM 08/18/2018 7:36 PM This code status was determined by: Patient Full Code 03/21/2016 6:40 PM 03/26/2016 4:41 PM This code status was determined by: Patient
--- OUTSIDE RECORDS SUMMARY | 2018-11-09 13:23 | XMS REPORT | Continuity of Care Document ---
:1940 Author Organization [facility] [place] Care Team Providers Name Role Phone [facility] Information [employer] Unavailable Unavailable Problems Problem Status Onset Classification Date Comments Source Date Reported M54.12 Active 10/02/19 [place] [address] [place] Diabetes Active Problem 10/16/2015 [facility] Diabetes Resolved Problem 10/16/2015 [facility] Gastric reflux Active Problem 10/16/2015 [facility] HTN - Resolved Problem 10/16/2015 [facility] Hypertension Active Problem 10/16/2015 [facility] RADICULOPATHY, Active [facility] [place] [facility] [place] Medications Medication Details Route Status Patient Ordering [...] 2015 [facility] ELECTROLYTES eGFR 62 [facility] 2015 Comment: The Ortho eGFR is and [...] MYELOGRAM CT SCAN OF CERVICAL SPINE 10/13/2015 [facility] myelogram CT DATE: 10/13/2015 10:08 [...] arthrosis to the right with probable fusion. Dhxo-ar-euxtngfu right foraminal narrowing. C3-C4: Oeqt-mc-nhfmzmgm grade 1 degenerative anterolisthesis of C3 on C4 with a 4 -- 5 mm posterior broad-based disc osteophyte complex indenting ventral cord with posterior cord displacement there and mild central canal narrowing. Cord is mildly flattened. Facet arthrosis greater to the left with hypertrophy noted mrjj-ba-fhvqcmdg left and mild right foraminal narrowing. C4-C5: Slight degenerative retrolisthesis of C4 on C5 with a 3 -- 4 mm posterior disc osteophyte complex mildly compressing and flattening cord against prominent ligament flavum with mild to moderate ce ntral canal stenosis and mild cord flattening. Rrby-eh-syyzkpkm bilateral foraminal narrowing secondary to facet and uncovertebral joint degeneration C5-C6: Mild degenerative retrolisthesis of C5 on C6 with a 4 -- 5 mm posterior disc osteophyte complex compressing cord against posterior elements. There is xocv-oa-hvfqzgua central canal stenosis with cord flattening there [...] above. Spine cervical EXAM: Cervical MYELOGRAM 10/13/2015 [facility] myelogram DX DATE: 10/13/2015 10:07 [...] with mild narrowing subarachnoid space. C3-C4 shows uewl-su-koiuzpjy ventral and mild dorsal extradural defects mildly encroaching upon ventral cord with spfl-my-xztabbjk narrowing subarachnoid space C4-C5 shows moderate ventral [...] Type Number For Provider Date Date Visit [facility] Outpatient [id number] Fernie 09/28 09/29 [facility] [id number] Fernie 10/12 10/13 [facility] Spine [facility] Procedures Procedure Code Date Perfomer Comments Source Abdominal [id number] Ortho hysterectomy and Spine Cholecystectomy [id number] [facility] Spine Excision of lesion of [id number] [facility] phalanges of foot and Spine [...]
--- OUTSIDE RECORDS SUMMARY | 2018-11-09 13:24 | XMS REPORT ---
:1940 [facility] Address [address] [place] [address] Dr. Scott [address] [place] [id number] Care Team Providers Name Role Phone RYAN [...] PATIENT ID: WITH DOPPLER 16:58:00 exam:->hypertensionShould this [id number] Renal be performed at the ultrasound and [...] MDReport Verified Date/Time: 08/18/2018 16:58:13 Reading Location: [address] Radiology Reading Room UE EXAM 2018-08-18 Surgical Pathology Report 14:09:00 Case: [id number] Authorizing Provider: Roddy Bernard Collected: 08/15/2018 1652 Ordering Location: [address] Received: 08/17/2018 0800 Service Pathologist: Joanne [...] MALIGNANCY NOTED Signing Pathologist Direct Phone Line: [phone] y signed by Joanne Gu MD on 08/18/2018 at 2:09 PMPreliminary result electronically signed by Joanne Gu MD on 08/17/2018 at 6:32 [id number] X 2; [id number]; [id number] bile duct stonesA. Duodenal ulcers biopsy; B. [...] 141 mg/dL 70-[address] [facility] [address] [facility] rduo=3122) [facility] [address] [id number] 06:53:00 Test Item Value Reference Range Comments MAGNESIUM (BEAKER) (test yxly=077) 1.9 mg/dL 1.6-2.6 BASIC METABOLIC [id number] 06:53:00 Test Item Value Reference Range Comments SODIUM (BEAKER) (test 134 meq/L 136-145 qcmp=396) POTASSIUM (BEAKER) (test 4.2 meq/L 3.5-5.1 hclt=313) CHLORIDE (BEAKER) (test 103 meq/L 98-107 uque=156) CO2 (BEAKER) (test 28 meq/L 22-29 kkkk=329) BLOOD UREA NITROGEN 12 mg/dL 7-21 (BEAKER) (test xbkn=808) CREATININE (BEAKER) (test 0.74 mg/dL 0.57-1.25 klvz=850) GLUCOSE RANDOM (BEAKER) 124 mg/dL 70-105 (test itid=022) CALCIUM (BEAKER) (test 9.9 mg/dL 8.4-10.2 syoz=295) EGFR (BEAKER) (test 76 mL/min/1.73 sq m ESTIMATED GFR IS NOT kpcs=7036) ACCURATE CREATININE CLEARANCE IN PREDICTING GLOMERULAR FILTRATION RATE. ESTIMATED GFR IS NOT APPLICABLE FOR DIALYSIS PATIENTS. HEPATIC FUNCTION [id number] 06:53:00 Test Item Value Reference Range Comments TOTAL PROTEIN (BEAKER) (test dglz=506) 5.4 gm/dL 6.0-8.3 ALBUMIN (BEAKER) (test kacm=2937) 2.9 g/dL 3.5-5.0 BILIRUBIN TOTAL (BEAKER) (test hqwz=870) 0.4 mg/dL 0.2-1.2 BILIRUBIN DIRECT (BEAKER) (test phdw=206) 0.2 mg/dL 0.1-0.5 ALKALINE PHOSPHATASE (BEAKER) (test ihtc=546) 73 U/L 40-150 AST (SGOT) (BEAKER) (test gokj=038) 20 U/L 5-34 ALT (SGPT) (BEAKER) (test cjto=391) 17 U/L 6-55 CBC (HEMOGRAM ONLY)2018-08-18 06:22:00 Test Item Value Reference Range Comments WHITE BLOOD CELL COUNT (BEAKER) (test rtks=017) 11.7 K/ L 3.5-10.5 RED BLOOD CELL COUNT (BEAKER) (test iayu=549) 3.29 M/ L 3.93-5.22 HEMOGLOBIN (BEAKER) (test sdbi=148) 10.4 GM/DL 11.2-15.7 HEMATOCRIT (BEAKER) (test uyyn=282) 31.8 % 34.1-44.9 MEAN CORPUSCULAR VOLUME (BEAKER) (test xaux=550) 96.7 fL 79.4-94.8 MEAN CORPUSCULAR HEMOGLOBIN (BEAKER) (test 31.6 pg 25.6-32.2 kqtb=248) MEAN CORPUSCULAR HEMOGLOBIN CONC (BEAKER) (test 32.7 GM/DL 32.2-35.5 mwyk=502) RED CELL DISTRIBUTION WIDTH (BEAKER) (test 16.6 % 11.7-14.4 vdal=073) PLATELET COUNT (BEAKER) (test jnwa=992) 175 K/CU MM 150-450 MEAN PLATELET VOLUME (BEAKER) (test jiyw=904) 11.4 fL 9.4-12.3 NUCLEATED RED BLOOD CELLS (BEAKER) (test 0 /100 WBC 0-0 bsfw=985) POCT-GLUCOSE [id number] 23:08:00 Test Item Value Reference Range Comments POC-GLUCOSE METER (BEAKER) 163 mg/dL 70-110 TESTED AT [place] [id number] [facility] (test rius=1091) [place] [id number] POCT-GLUCOSE [id number] 17:26:00 Test Item Value Reference Range Comments POC-GLUCOSE METER (BEAKER) 131 mg/dL 70-110 TESTED AT [address] (test ixpp=0526) [place] [address] PET, CARDIAC PERFUSION MULTIPLE STUDIES, REST AND [id number] 15:22: 00Reason for exam:->Exclude ischemiaFINAL REPORT PROCEDURE: MYOCARDIAL PERFUSION PET IMAGING (Rest/Stress)CPT CODE: [id number] INDICATION: Define extent of known CAD, chest [...] MDReport Verified Date/Time: 08/17/2018 15:22:38 Reading Location: [address] Reading Room POCT-GLUCOSE [id number] 13:27:00 Test Item Value Reference Range Comments POC-GLUCOSE METER (BEAKER) 130 mg/dL 70-[address] [facility] [address] [facility] (test jzhx=0050) [facility] [address] CBC (HEMOGRAM ONLY)2018-08-17 07:52:00 Test Item Value Reference Range Comments WHITE BLOOD CELL COUNT (BEAKER) (test gqdq=988) 10.6 K/ L 3.5-10.5 RED BLOOD CELL COUNT (BEAKER) (test beti=680) 3.45 M/ L 3.93-5.22 HEMOGLOBIN (BEAKER) (test dxap=923) 10.8 GM/DL 11.2-15.7 HEMATOCRIT (BEAKER) (test vbdc=653) 32.9 % 34.1-44.9 MEAN CORPUSCULAR VOLUME (BEAKER) (test cjrm=731) 95.4 fL 79.4-94.8 MEAN CORPUSCULAR HEMOGLOBIN (BEAKER) (test 31.3 pg 25.6-32.2 mdyj=323) MEAN CORPUSCULAR HEMOGLOBIN CONC (BEAKER) (test 32.8 GM/DL 32.2-35.5 cgud=973) RED CELL DISTRIBUTION WIDTH (BEAKER) (test 16.1 % 11.7-14.4 muwa=695) PLATELET COUNT (BEAKER) (test dnth=845) 177 K/CU MM 150-450 MEAN PLATELET VOLUME (BEAKER) (test knxh=855) 11.2 fL 9.4-12.3 NUCLEATED RED BLOOD CELLS (BEAKER) (test 0 /100 WBC 0-0 yzap=879) [id number] 07:43:00 Test Item Value Reference Range Comments MAGNESIUM (BEAKER) (test wwoy=043) 1.6 mg/dL 1.6-2.6 BASIC METABOLIC [id number] 07:43:00 Test Item Value Reference Range Comments SODIUM (BEAKER) (test 136 meq/L 136-145 cpxp=300) POTASSIUM (BEAKER) (test 3.6 meq/L 3.5-5.1 hllr=889) CHLORIDE (BEAKER) (test 102 meq/L 98-107 xhcb=972) CO2 (BEAKER) (test 29 meq/L 22-29 ogqm=623) BLOOD UREA NITROGEN 10 mg/dL 7-21 (BEAKER) (test jlqo=055) CREATININE (BEAKER) (test 0.74 mg/dL 0.57-1.25 sfsd=582) GLUCOSE RANDOM (BEAKER) 134 mg/dL 70-105 (test dfwv=971) CALCIUM (BEAKER) (test 9.9 mg/dL 8.4-10.2 ckdt=223) EGFR (BEAKER) (test 76 mL/min/1.73 sq m ESTIMATED GFR IS NOT lyhh=0406) ACCURATE CREATININE CLEARANCE IN PREDICTING GLOMERULAR FILTRATION RATE. ESTIMATED GFR IS NOT APPLICABLE FOR DIALYSIS PATIENTS. HEPATIC FUNCTION [id number] 07:43:00 Test Item Value Reference Range Comments TOTAL PROTEIN (BEAKER) (test vwrf=130) 5.2 gm/dL 6.0-8.3 ALBUMIN (BEAKER) (test qgyz=9619) 2.8 g/dL 3.5-5.0 BILIRUBIN TOTAL (BEAKER) (test jefk=413) 0.5 mg/dL 0.2-1.2 BILIRUBIN DIRECT (BEAKER) (test mskv=879) 0.3 mg/dL 0.1-0.5 ALKALINE PHOSPHATASE (BEAKER) (test aiym=705) 76 U/L 40-150 AST (SGOT) (BEAKER) (test yuqp=852) 21 U/L 5-34 ALT (SGPT) (BEAKER) (test chfp=783) 17 U/L 6-55 POCT-GLUCOSE [id number] 07:24:00 Test Item Value Reference Range Comments POC-GLUCOSE METER (BEAKER) 144 mg/dL 70-[address] [facility] [address] [facility] (test rjuw=3531) [facility] [address] POCT-GLUCOSE [id number] 23:39:00 Test Item Value Reference Range Comments POC-GLUCOSE METER (BEAKER) 159 mg/dL 70-110 TESTED AT [place] [id number] [facility] (test arxw=4289) [facility] [address] POCT-GLUCOSE [id number] 17:20:00 Test Item Value Reference Range Comments POC-GLUCOSE METER (BEAKER) 168 mg/dL 70-110 TESTED AT [address] (test ndrz=8657) [facility] [address] COMPREHENSIVE METABOLIC [id number] 13:35:00 Test Item Value Reference Range Comments TOTAL PROTEIN (BEAKER) 5.4 gm/dL 6.0-8.3 (test looo=066) ALBUMIN (BEAKER) (test 2.9 g/dL 3.5-5.0 llef=6381) ALKALINE PHOSPHATASE 86 U/L 40-150 (BEAKER) (test crdb=073) BILIRUBIN TOTAL (BEAKER) 0.4 mg/dL 0.2-1.2 (test qleh=658) SODIUM (BEAKER) (test 135 meq/L 136-145 bklx=155) POTASSIUM (BEAKER) (test 3.7 meq/L 3.5-5.1 orco=056) CHLORIDE (BEAKER) (test 102 meq/L 98-107 aber=074) CO2 (BEAKER) (test 28 meq/L 22-29 ihpj=746) BLOOD UREA NITROGEN 10 mg/dL 7-21 (BEAKER) (test wmde=807) CREATININE (BEAKER) (test 0.83 mg/dL 0.57-1.25 mvkp=145) GLUCOSE RANDOM (BEAKER) 150 mg/dL 70-105 (test syaz=779) CALCIUM (BEAKER) (test 10.0 mg/dL 8.4-10.2 ghpj=740) AST (SGOT) (BEAKER) (test 25 U/L 5-34 psst=347) ALT (SGPT) (BEAKER) (test 23 U/L 6-55 sjns=036) EGFR (BEAKER) (test 66 mL/min/1.73 sq m ESTIMATED GFR IS NOT vecp=0458) ACCURATE CREATININE CLEARANCE IN PREDICTING GLOMERULAR FILTRATION RATE. ESTIMATED GFR IS NOT APPLICABLE FOR DIALYSIS PATIENTS. CBC W/PLT COUNT & AUTO [id number] 13:14:00 Test Item Value Reference Range Comments WHITE BLOOD CELL COUNT (BEAKER) (test divu=477) 12.9 K/ L 3.5-10.5 RED BLOOD CELL COUNT (BEAKER) (test laav=100) 3.74 M/ L 3.93-5.22 HEMOGLOBIN (BEAKER) (test bonw=023) 11.6 GM/DL 11.2-15.7 HEMATOCRIT (BEAKER) (test ccfe=380) 35.0 % 34.1-44.9 MEAN CORPUSCULAR VOLUME (BEAKER) (test drty=569) 93.6 fL 79.4-94.8 MEAN CORPUSCULAR HEMOGLOBIN (BEAKER) (test 31.0 pg 25.6-32.2 dvbn=396) MEAN CORPUSCULAR HEMOGLOBIN CONC (BEAKER) (test 33.1 GM/DL 32.2-35.5 byno=679) RED CELL DISTRIBUTION WIDTH (BEAKER) (test 16.0 % 11.7-14.4 tymw=682) PLATELET COUNT (BEAKER) (test esok=334) 165 K/CU MM 150-450 MEAN PLATELET VOLUME (BEAKER) (test hzzb=227) 10.1 fL 9.4-12.3 NUCLEATED RED BLOOD CELLS (BEAKER) (test 0 /100 WBC 0-0 wqfa=034) NEUTROPHILS RELATIVE PERCENT (BEAKER) (test 84 % thqz=889) LYMPHOCYTES RELATIVE PERCENT (BEAKER) (test 7 % kvqm=134) MONOCYTES RELATIVE PERCENT (BEAKER) (test 7 % fztx=160) EOSINOPHILS RELATIVE PERCENT (BEAKER) (test 2 % hnja=925) BASOPHILS RELATIVE PERCENT (BEAKER) (test 0 % fvoc=767) NEUTROPHILS ABSOLUTE COUNT (BEAKER) (test 10.89 K/ L 1.56-6.13 cnlk=858) LYMPHOCYTES ABSOLUTE COUNT (BEAKER) (test 0.90 K/ L 1.18-3.74 hcph=998) MONOCYTES ABSOLUTE COUNT (BEAKER) (test 0.84 K/ L 0.24-0.36 uisb=191) EOSINOPHILS ABSOLUTE COUNT (BEAKER) (test 0.20 K/ L 0.04-0.36 ymdc=125) BASOPHILS ABSOLUTE COUNT (BEAKER) (test 0.05 K/ L 0.01-0.08 hpiy=152) IMMATURE GRANULOCYTES-RELATIVE PERCENT (BEAKER) 1 % 0-1 (test wpbm=7753) POCT-GLUCOSE [id number] 12:12:00 Test Item Value Reference Range Comments POC-GLUCOSE METER (BEAKER) 154 mg/dL 70-110 TESTED AT [address] (test jwlv=0008) [place] [address] BLOOD [id number] 08:00:00 Test Item Value Reference Range Comments CULTURE (BEAKER) (test mfko=7723) No growth in 5 days BLOOD [id number] 08:00:00 Test Item Value Reference Range Comments CULTURE (BEAKER) (test pncw=9441) No growth in 5 days POCT-GLUCOSE [id number] 07:45:00 Test Item Value Reference Range Comments POC-GLUCOSE METER (BEAKER) 115 mg/dL 70-110 TESTED AT [address] (test wamy=5861) [place] [address] POCT-GLUCOSE [id number] 23:02:00 Test Item Value Reference Range Comments POC-GLUCOSE METER (BEAKER) 90 mg/dL 70-110 TESTED AT [address] (test mamc=2580) [place] [address] [place], [id number] 17:37:00INTRA OP IMAGINGReason for exam:->CBD STONESFINAL REPORT [...] Verified Date/ Time: 08/15/2018 17:37:26 Reading Location: [facility] C013X [facility] Consult Reading Room POCT-GLUCOSE [id number] 17:35:00 Test Item Value Reference Range Comments POC-GLUCOSE METER (BEAKER) 180 mg/dL 70-[address] [facility] [address] [facility] (test itwx=6919) [facility] [address] POCT-GLUCOSE [id number] 07:57:00 Test Item Value Reference Range Comments POC-GLUCOSE METER (BEAKER) 129 mg/dL 70-[address] [facility] [address] [facility] (test jolt=1806) [facility] [address] [id number] 06:01:00 Test Item Value Reference Range Comments MAGNESIUM (BEAKER) (test tmrv=798) 1.6 mg/dL 1.6-2.6 BASIC METABOLIC [id number] 06:01:00 Test Item Value Reference Range Comments SODIUM (BEAKER) (test 138 meq/L 136-145 hdlk=005) POTASSIUM (BEAKER) (test 3.8 meq/L 3.5-5.1 bvck=907) CHLORIDE (BEAKER) (test 108 meq/L 98-107 aexi=390) CO2 (BEAKER) (test 25 meq/L 22-29 fgxc=421) BLOOD UREA NITROGEN 7 mg/dL 7-21 (BEAKER) (test dqct=025) CREATININE (BEAKER) (test 0.77 mg/dL 0.57-1.25 qgaf=695) GLUCOSE RANDOM (BEAKER) 123 mg/dL 70-105 (test olta=683) CALCIUM (BEAKER) (test 10.0 mg/dL 8.4-10.2 kosr=365) EGFR (BEAKER) (test 72 mL/min/1.73 sq m ESTIMATED GFR IS NOT fodz=9253) ACCURATE CREATININE CLEARANCE IN PREDICTING GLOMERULAR FILTRATION RATE. ESTIMATED GFR IS NOT APPLICABLE FOR DIALYSIS PATIENTS. HEPATIC FUNCTION [id number] 06:01:00 Test Item Value Reference Range Comments TOTAL PROTEIN (BEAKER) (test uhfb=794) 5.4 gm/dL 6.0-8.3 ALBUMIN (BEAKER) (test efwn=4998) 2.9 g/dL 3.5-5.0 BILIRUBIN TOTAL (BEAKER) (test prbk=244) 0.5 mg/dL 0.2-1.2 BILIRUBIN DIRECT (BEAKER) (test ckmm=448) 0.3 mg/dL 0.1-0.5 ALKALINE PHOSPHATASE (BEAKER) (test ecaj=714) 92 U/L 40-150 AST (SGOT) (BEAKER) (test hymx=484) 33 U/L 5-34 ALT (SGPT) (BEAKER) (test coyv=305) 30 U/L 6-55 CBC (HEMOGRAM ONLY)2018-08-15 04:44:00 Test Item Value Reference Range Comments WHITE BLOOD CELL COUNT (BEAKER) (test mskm=914) 11.8 K/ L 3.5-10.5 RED BLOOD CELL COUNT (BEAKER) (test tlff=089) 3.97 M/ L 3.93-5.22 HEMOGLOBIN (BEAKER) (test csqa=791) 12.6 GM/DL 11.2-15.7 HEMATOCRIT (BEAKER) (test asfg=146) 37.4 % 34.1-44.9 MEAN CORPUSCULAR VOLUME (BEAKER) (test fcmy=865) 94.2 fL 79.4-94.8 MEAN CORPUSCULAR HEMOGLOBIN (BEAKER) (test 31.7 pg 25.6-32.2 irao=092) MEAN CORPUSCULAR HEMOGLOBIN CONC (BEAKER) (test 33.7 GM/DL 32.2-35.5 dmtp=990) RED CELL DISTRIBUTION WIDTH (BEAKER) (test 15.8 % 11.7-14.4 qcvf=949) PLATELET COUNT (BEAKER) (test uiwf=116) 189 K/CU MM 150-450 MEAN PLATELET VOLUME (BEAKER) (test qwzi=425) 10.7 fL 9.4-12.3 NUCLEATED RED BLOOD CELLS (BEAKER) (test 0 /100 WBC 0-0 poxr=892) POCT-GLUCOSE [id number] 23:38:00 Test Item Value Reference Range Comments POC-GLUCOSE METER (BEAKER) 137 mg/dL 70-110 TESTED AT [address] (test lhok=0495) [facility] [address] POCT-GLUCOSE [id number] 12:13:00 Test Item Value Reference Range Comments POC-GLUCOSE METER (BEAKER) 159 mg/dL 70-110 TESTED AT [address] (test xbaj=9462) [facility] [address] POCT-GLUCOSE [id number] 08:11:00 Test Item Value Reference Range Comments POC-GLUCOSE METER (BEAKER) 138 mg/dL 70-[address] [facility] [address] (test onwz=3324) [facility] [address] [id number] 06:01:00 Test Item Value Reference Range Comments MAGNESIUM (BEAKER) (test blda=215) 1.7 mg/dL 1.6-2.6 BASIC METABOLIC [id number] 06:01:00 Test Item Value Reference Range Comments SODIUM (BEAKER) (test 138 meq/L 136-145 lqip=035) POTASSIUM (BEAKER) (test 3.8 meq/L 3.5-5.1 aapg=847) CHLORIDE (BEAKER) (test 109 meq/L 98-107 lrda=030) CO2 (BEAKER) (test 26 meq/L 22-29 taru=181) BLOOD UREA NITROGEN 10 mg/dL 7-21 (BEAKER) (test pmbg=655) CREATININE (BEAKER) (test 0.80 mg/dL 0.57-1.25 douw=362) GLUCOSE RANDOM (BEAKER) 106 mg/dL 70-105 (test wycv=898) CALCIUM (BEAKER) (test 9.4 mg/dL 8.4-10.2 trtx=580) EGFR (BEAKER) (test 69 mL/min/1.73 sq m ESTIMATED GFR IS NOT pecm=3114) ACCURATE CREATININE CLEARANCE IN PREDICTING GLOMERULAR FILTRATION RATE. ESTIMATED GFR IS NOT APPLICABLE FOR DIALYSIS PATIENTS. HEPATIC FUNCTION [id number] 06:01:00 Test Item Value Reference Range Comments TOTAL PROTEIN (BEAKER) (test jnmm=927) 5.4 gm/dL 6.0-8.3 ALBUMIN (BEAKER) (test veuc=4891) 2.9 g/dL 3.5-5.0 BILIRUBIN TOTAL (BEAKER) (test hxot=071) 0.5 mg/dL 0.2-1.2 BILIRUBIN DIRECT (BEAKER) (test iumt=713) 0.4 mg/dL 0.1-0.5 ALKALINE PHOSPHATASE (BEAKER) (test scau=433) 105 U/L 40-150 AST (SGOT) (BEAKER) (test upbx=176) 33 U/L 5-34 ALT (SGPT) (BEAKER) (test lnlj=993) 31 U/L 6-55 CBC (HEMOGRAM ONLY)2018-08-14 05:10:00 Test Item Value Reference Range Comments WHITE BLOOD CELL COUNT (BEAKER) (test dzzp=545) 10.6 K/ L 3.5-10.5 RED BLOOD CELL COUNT (BEAKER) (test ihld=723) 3.87 M/ L 3.93-5.22 HEMOGLOBIN (BEAKER) (test pmza=282) 12.0 GM/DL 11.2-15.7 HEMATOCRIT (BEAKER) (test gzcw=514) 36.9 % 34.1-44.9 MEAN CORPUSCULAR VOLUME (BEAKER) (test uzru=297) 95.3 fL 79.4-94.8 MEAN CORPUSCULAR HEMOGLOBIN (BEAKER) (test 31.0 pg 25.6-32.2 squa=882) MEAN CORPUSCULAR HEMOGLOBIN CONC (BEAKER) (test 32.5 GM/DL 32.2-35.5 tnbc=357) RED CELL DISTRIBUTION WIDTH (BEAKER) (test 15.7 % 11.7-14.4 qquf=885) PLATELET COUNT (BEAKER) (test tjem=114) 158 K/CU MM 150-450 MEAN PLATELET VOLUME (BEAKER) (test apaw=733) 11.0 fL 9.4-12.3 NUCLEATED RED BLOOD CELLS (BEAKER) (test 0 /100 WBC 0-0 qqpw=704) POCT-GLUCOSE [id number] 23:53:00 Test Item Value Reference Range Comments POC-GLUCOSE METER (BEAKER) 115 mg/dL 70-110 TESTED AT [address] (test asxv=9298) [facility] [address] POCT-GLUCOSE [id number] 16:48:00 Test Item Value Reference Range Comments POC-GLUCOSE METER (BEAKER) 83 mg/dL 70-110 TESTED AT [address] (test oauc=8456) [facility] [address] POCT-GLUCOSE [id number] 13:19:00 Test Item Value Reference Range Comments POC-GLUCOSE METER (BEAKER) 102 mg/dL 70-110 TESTED AT [address] (test ncju=7744) [facility] [address] POCT-GLUCOSE [id number] 12:02:00 Test Item Value Reference Range Comments POC-GLUCOSE METER (BEAKER) 95 mg/dL 70-110 [address] (test agci=8264) [facility] [address] POCT-GLUCOSE [id number] 07:22:00 Test Item Value Reference Range Comments POC-GLUCOSE METER (BEAKER) 109 mg/dL 70-[address] [facility] [address] [facility] (test eqdj=2608) [facility] [address] [id number] 04:31:00 Test Item Value Reference Range Comments MAGNESIUM (BEAKER) (test 1.7 mg/dL 1.6-2.6 Specimen slightly hemolyzed itwl=271) BASIC METABOLIC [id number] 04:31:00 Test Item Value Reference Range Comments SODIUM (BEAKER) (test 140 meq/L 136-145 ntse=282) POTASSIUM (BEAKER) (test 3.6 meq/L 3.5-5.1 Specimen slightly pydz=051) hemolyzed CHLORIDE (BEAKER) (test 111 meq/L 98-107 bnnd=563) CO2 (BEAKER) (test 24 meq/L 22-29 bfcz=642) BLOOD UREA NITROGEN 12 mg/dL 7-21 (BEAKER) (test kcqi=961) CREATININE (BEAKER) (test 0.79 mg/dL 0.57-1.25 Specimen slightly nzgl=113) hemolyzed GLUCOSE RANDOM (BEAKER) 110 mg/dL 70-105 (test lceh=263) CALCIUM (BEAKER) (test 9.5 mg/dL 8.4-10.2 yzdz=865) EGFR (BEAKER) (test 70 mL/min/1.73 sq m ESTIMATED GFR IS NOT fgkn=5139) ACCURATE CREATININE CLEARANCE IN PREDICTING GLOMERULAR FILTRATION RATE. ESTIMATED GFR IS NOT APPLICABLE FOR DIALYSIS PATIENTS. HEPATIC FUNCTION [id number] 04:31:00 Test Item Value Reference Range Comments TOTAL PROTEIN (BEAKER) (test 5.2 gm/dL 6.0-8.3 Specimen slightly hemolyzed pwky=924) ALBUMIN (BEAKER) (test 2.7 g/dL 3.5-5.0 Specimen slightly hemolyzed jcnq=7078) BILIRUBIN TOTAL (BEAKER) (test 0.7 mg/dL 0.2-1.2 Specimen slightly hemolyzed ayff=174) BILIRUBIN DIRECT (BEAKER) (test 0.3 mg/dL 0.1-0.5 Specimen slightly hemolyzed bfvt=911) ALKALINE PHOSPHATASE (BEAKER) 118 U/L 40-150 (test wqhk=793) AST (SGOT) (BEAKER) (test 52 U/L 5-34 Specimen slightly hemolyzed mulm=477) ALT (SGPT) (BEAKER) (test 43 U/L 6-55 Specimen slightly hemolyzed cxfb=543) CBC (HEMOGRAM ONLY)2018-08-13 03:56:00 Test Item Value Reference Range Comments WHITE BLOOD CELL COUNT (BEAKER) (test zvkc=773) 9.7 K/ L 3.5-10.5 RED BLOOD CELL COUNT (BEAKER) (test ztxv=614) 3.51 M/ L 3.93-5.22 HEMOGLOBIN (BEAKER) (test zdom=992) 11.0 GM/DL 11.2-15.7 HEMATOCRIT (BEAKER) (test hyqz=705) 33.1 % 34.1-44.9 MEAN CORPUSCULAR VOLUME (BEAKER) (test hnoo=444) 94.3 fL 79.4-94.8 MEAN CORPUSCULAR HEMOGLOBIN (BEAKER) (test 31.3 pg 25.6-32.2 tgiv=560) MEAN CORPUSCULAR HEMOGLOBIN CONC (BEAKER) (test 33.2 GM/DL 32.2-35.5 whgs=442) RED CELL DISTRIBUTION WIDTH (BEAKER) (test 15.3 % 11.7-14.4 jkui=013) PLATELET COUNT (BEAKER) (test qwuz=279) 128 K/CU MM 150-450 MEAN PLATELET VOLUME (BEAKER) (test dxat=879) 11.1 fL 9.4-12.3 NUCLEATED RED BLOOD CELLS (BEAKER) (test 0 /100 WBC 0-0 tkst=203) POCT-GLUCOSE [id number] 22:11:00 Test Item Value Reference Range Comments POC-GLUCOSE METER (BEAKER) 138 mg/dL 70-110 TESTED AT [address] (test dhbu=3604) [place] [id number] POCT-GLUCOSE [id number] 16:28:00 Test Item Value Reference Range Comments POC-GLUCOSE METER (BEAKER) 155 mg/dL 70-110 TESTED AT [address] (test zczm=0792) [facility] [address] [address], [id number] 13:32:00FINAL REPORT CT abdomen and pelvis without [...] right greater than left. Signed: Enio Ley [facility] Verified Date/Time: 08/12/2018 13:32:12 Reading Location: [facility] Diagnostic Imaging Reading Room - [place] [address] [address], BRAIN, WITHOUT [id number] 12:57:00FINAL REPORT CT, BRAIN, WITHOUT CONTRAST CLINICAL [...] Motta Verified Date/Time: 2018 12:57:37 Reading Location: [facility] Radiology Reading Room POCT -GLUCOSE [id number] 12:48:00 Test Item Value Reference Range Comments POC-GLUCOSE METER (BEAKER) 156 mg/dL 70-110 TESTED AT [address] (test htit=8573) [facility] [address] POCT-GLUCOSE [id number] 07:16:00 Test Item Value Reference Range Comments POC-GLUCOSE METER (BEAKER) 157 mg/dL 70-110 TESTED AT [address] (test zaxe=2996) [facility] [address] VITAMIN [id number] 05:53:00 Test Item Value Reference Range Comments VITAMIN B12 (BEAKER) (test lqit=930) 1063 pg/mL 213-816 [id number] 05:27:00 Test Item Value Reference Range Comments MAGNESIUM (BEAKER) (test onhx=583) 1.7 mg/dL 1.6-2.6 BASIC METABOLIC [id number] 05:27:00 Test Item Value Reference Range Comments SODIUM (BEAKER) (test 140 meq/L 136-145 srcp=868) POTASSIUM (BEAKER) (test 3.6 meq/L 3.5-5.1 qbbm=362) CHLORIDE (BEAKER) (test 109 meq/L 98-107 jtdf=616) CO2 (BEAKER) (test 27 meq/L 22-29 xcel=256) BLOOD UREA NITROGEN 16 mg/dL 7-21 (BEAKER) (test jxdm=248) CREATININE (BEAKER) (test 0.88 mg/dL 0.57-1.25 tjxp=118) GLUCOSE RANDOM (BEAKER) 152 mg/dL 70-105 (test szha=416) CALCIUM (BEAKER) (test 9.7 mg/dL 8.4-10.2 uqnb=223) EGFR (BEAKER) (test 62 mL/min/1.73 sq m ESTIMATED GFR IS NOT ekzr=1816) ACCURATE CREATININE CLEARANCE IN PREDICTING GLOMERULAR FILTRATION RATE. ESTIMATED GFR IS NOT APPLICABLE FOR DIALYSIS PATIENTS. HEPATIC FUNCTION [id number] 05:27:00 Test Item Value Reference Range Comments TOTAL PROTEIN (BEAKER) (test kaee=839) 5.9 gm/dL 6.0-8.3 ALBUMIN (BEAKER) (test fvaz=0335) 3.2 g/dL 3.5-5.0 BILIRUBIN TOTAL (BEAKER) (test msmp=296) 1.1 mg/dL 0.2-1.2 BILIRUBIN DIRECT (BEAKER) (test osib=045) 0.7 mg/dL 0.1-0.5 ALKALINE PHOSPHATASE (BEAKER) (test frfq=851) 77 U/L 40-150 AST (SGOT) (BEAKER) (test fcsh=137) 26 U/L 5-34 ALT (SGPT) (BEAKER) (test erpl=171) 19 U/L 6-55 LACTIC ACID, [id number] 05:12:00 Test Item Value Reference Range Comments LACTATE BLOOD VENOUS (2) 0.9 mmol/L 0.5-2.2 Specimen slightly hemolyzed (BEAKER) (test rwwk=9443) CBC (HEMOGRAM ONLY)2018-08-12 05:00:00 Test Item Value Reference Range Comments WHITE BLOOD CELL COUNT (BEAKER) (test rvlu=327) 12.8 K/ L 3.5-10.5 RED BLOOD CELL COUNT (BEAKER) (test bnwd=014) 3.82 M/ L 3.93-5.22 HEMOGLOBIN (BEAKER) (test nmll=017) 12.1 GM/DL 11.2-15.7 HEMATOCRIT (BEAKER) (test rwjm=895) 36.4 % 34.1-44.9 MEAN CORPUSCULAR VOLUME (BEAKER) (test laok=994) 95.3 fL 79.4-94.8 MEAN CORPUSCULAR HEMOGLOBIN (BEAKER) (test 31.7 pg 25.6-32.2 umbt=480) MEAN CORPUSCULAR HEMOGLOBIN CONC (BEAKER) (test 33.2 GM/DL 32.2-35.5 nqwl=313) RED CELL DISTRIBUTION WIDTH (BEAKER) (test 15.3 % 11.7-14.4 kfry=621) PLATELET COUNT (BEAKER) (test vxps=236) 154 K/CU MM 150-450 MEAN PLATELET VOLUME (BEAKER) (test gfkl=419) 11.0 fL 9.4-12.3 NUCLEATED RED BLOOD CELLS (BEAKER) (test 0 /100 WBC 0-0 fpyq=761) TROPONIN [id number] 01:40:00 Test Item Value Reference Range Comments TROPONIN I (BEAKER) (test cwrs=316) 0.02 ng/mL 0.00-0.03 Troponin I (TnI) levels [...] acidosis, acute neurological disease, and persistent tachyarrhythmia.POCT-GLUCOSE [id number] 22:32:00 Test Item Value Reference Range Comments POC-GLUCOSE METER (BEAKER) 154 mg/dL 70-[address] [facility] [address] [facility] (test wtqs=3254) [facility] [address] [id number] 22:27:00 Test Item Value Reference Range Comments PROCALCITONIN (BEAKER) (test plfe=4292) < ng/mL <0.05 SEPSIS RISK (ng/mL)Low: 0.05-0.50Intermediate: 0.51-2.00High: & gt;=2.01TROPONIN [id number] 18:31:00 Test Item Value Reference Range Comments TROPONIN I (BEAKER) (test bldd=691) 0.01 ng/mL 0.00-0.03 Troponin I (TnI) levels [...] acidosis, acute neurological disease, and persistent tachyarrhythmia.POCT-GLUCOSE [id number] 12:21:00 Test Item Value Reference Range Comments POC-GLUCOSE METER (BEAKER) 178 mg/dL 70-110 TESTED AT [address] (test bgkn=8859) [facility] [address] RAD, ABDOMEN/KUB, 1 VIEW [id number] 11:42:00Reason for exam:->abdominal painShould this be performed [...] Verified Date/ Time: 08/11/2018 11:42:12 Reading Location: [facility] Radiology Reading Room POCT -BLOOD GASES, [id number] 09:41:00 Test Item Value Reference Range Comments TEMP, CELSIUS-POC (BEAKER) 36.9 (test byda=0382) FIO2-POC (BEAKER) (test 28 TESTED AT [address] ardq=9562) [facility] [address] PH, VENOUS-POC (BEAKER) 7.344 7.320-7.420 (test rgnx=9841) PCO2, VENOUS-POC (BEAKER) 48.8 mm Hg 41.0-51.0 (test huwb=4739) PO2, VENOUS-POC (BEAKER) 36.0 mm Hg 25.0-40.0 (test icql=7964) SO2, VENOUS-POC (BEAKER) 66.0 % 40.0-70.0 (test ydbh=6883) HCO3, VENOUS-POC (BEAKER) 26.6 meq/L 21.0-29.0 (test eigy=7060) BASE EXCESS, VENOUS-POC 1.0 meq/L -2.0-3.0 (BEAKER) (test jkoe=6572) [id number] 09:41:00 Test Item Value Reference Range Comments POC-SODIUM (BEAKER) (test 142 meq/L 135-148 TESTED AT [address] ptxs=4136) [place] [address] [id number] 09:41:00 Test Item Value Reference Range Comments POC-POTASSIUM (BEAKER) (test 3.6 meq/L 3.6-5.5 TESTED AT [address] wbnj=6670) [place] [address] [id number] 09:41:00 Test Item Value Reference Range Comments POC-GLUCOSE (BEAKER) (test 165 mg/dL 70-110 TESTED AT [address] ncbr=2294) [place] [address] POCT-CALCIUM [id number] 09:41:00 Test Item Value Reference Range Comments POC-CALCIUM IONIZED (BEAKER) 1.50 mmol/L 1.12-1.27 TESTED AT [address] (test drxp=4756) [place] [address] [id number] 09:41:00 Test Item Value Reference Range Comments POC-HEMATOCRIT (BEAKER) (test 34 % 36-45 TESTED AT [address] hmqx=3904) [place] [address] [id number] 09:41:00 Test Item Value Reference Range Comments POC-HEMOGLOBIN (BEAKER) 11.6 g/dL 12.0-15.0 TESTED AT [address] (test ybfc=1443) [place] [address]TESTED AT [place] [address] POCT-LACTIC ACID, [id number] 09:41:00 Test Item Value Reference Range Comments POC-LACTIC ACID, VENOUS 0.9 mmol/L 0.9-1.7 TESTED AT [address] (BEAKER) (test vzeq=1962) [place] [address] URINALYSIS W/ REFLEX URINE [id number] 09:28:00 Test Item Value Reference Range Comments COLOR (BEAKER) (test ddce=569) Yellow CLARITY (BEAKER) (test ojpc=338) Clear SPECIFIC GRAVITY UA (BEAKER) (test klty=522) 1.012 1.001-1.035 PH UA (BEAKER) (test cfxw=148) 6.0 5.0-8.0 PROTEIN UA (BEAKER) (test uvxm=084) 10 mg/dL Negative GLUCOSE UA (BEAKER) (test zqwt=260) 50 mg/dL Negative KETONES UA (BEAKER) (test yimk=395) 20 mg/dL Negative BILIRUBIN UA (BEAKER) (test vrro=630) Negative Negative BLOOD UA (BEAKER) (test eawa=356) Moderate Negative NITRITE UA (BEAKER) (test avdg=694) Negative Negative LEUKOCYTE ESTERASE UA (BEAKER) (test qdla=047) Negative Negative UROBILINOGEN UA (BEAKER) (test ayge=616) 0.2 mg/dL 0.2-1.0 RBC UA (BEAKER) (test ziai=610) 105 /HPF WBC UA (BEAKER) (test agit=758) 2 /HPF SOURCE(BEAKER) (test odpi=3424) POCT-GLUCOSE [id number] 09:17:00 Test Item Value Reference Range Comments POC-GLUCOSE METER (BEAKER) 172 mg/dL 70-[address] [facility] [address] [facility] (test rklu=7697) [facility] [address] [id number] 06:43:00 Test Item Value Reference Range Comments MAGNESIUM (BEAKER) (test jcke=912) 1.7 mg/dL 1.6-2.6 BASIC METABOLIC [id number] 06:43:00 Test Item Value Reference Range Comments SODIUM (BEAKER) (test 140 meq/L 136-145 ocac=134) POTASSIUM (BEAKER) (test 3.7 meq/L 3.5-5.1 gohq=589) CHLORIDE (BEAKER) (test 110 meq/L 98-107 sblh=621) CO2 (BEAKER) (test 25 meq/L 22-29 pbqw=843) BLOOD UREA NITROGEN 16 mg/dL 7-21 (BEAKER) (test mypx=163) CREATININE (BEAKER) (test 0.78 mg/dL 0.57-1.25 gpzq=562) GLUCOSE RANDOM (BEAKER) 163 mg/dL 70-105 (test wwyd=840) CALCIUM (BEAKER) (test 10.3 mg/dL 8.4-10.2 jieq=663) EGFR (BEAKER) (test 71 mL/min/1.73 sq m ESTIMATED GFR IS NOT iuso=5360) ACCURATE CREATININE CLEARANCE IN PREDICTING GLOMERULAR FILTRATION RATE. ESTIMATED GFR IS NOT APPLICABLE FOR DIALYSIS PATIENTS. HEPATIC FUNCTION [id number] 06:43:00 Test Item Value Reference Range Comments TOTAL PROTEIN (BEAKER) (test tzxv=177) 5.8 gm/dL 6.0-8.3 ALBUMIN (BEAKER) (test xvth=6776) 3.2 g/dL 3.5-5.0 BILIRUBIN TOTAL (BEAKER) (test gwzj=023) 1.1 mg/dL 0.2-1.2 BILIRUBIN DIRECT (BEAKER) (test zgvj=140) 0.7 mg/dL 0.1-0.5 ALKALINE PHOSPHATASE (BEAKER) (test ttpj=408) 76 U/L 40-150 AST (SGOT) (BEAKER) (test xcrk=743) 23 U/L 5-34 ALT (SGPT) (BEAKER) (test expa=932) 20 U/L 6-55 CBC (HEMOGRAM ONLY)2018-08-11 05:56:00 Test Item Value Reference Range Comments WHITE BLOOD CELL COUNT (BEAKER) (test omwg=062) 15.2 K/ L 3.5-10.5 RED BLOOD CELL COUNT (BEAKER) (test xvks=062) 3.68 M/ L 3.93-5.22 HEMOGLOBIN (BEAKER) (test ekum=061) 11.5 GM/DL 11.2-15.7 HEMATOCRIT (BEAKER) (test reky=625) 35.4 % 34.1-44.9 MEAN CORPUSCULAR VOLUME (BEAKER) (test wwyn=770) 96.2 fL 79.4-94.8 MEAN CORPUSCULAR HEMOGLOBIN (BEAKER) (test 31.3 pg 25.6-32.2 garx=640) MEAN CORPUSCULAR HEMOGLOBIN CONC (BEAKER) (test 32.5 GM/DL 32.2-35.5 skhk=019) RED CELL DISTRIBUTION WIDTH (BEAKER) (test 15.8 % 11.7-14.4 wbys=191) PLATELET COUNT (BEAKER) (test vyvx=786) 139 K/CU MM 150-450 MEAN PLATELET VOLUME (BEAKER) (test dbau=728) 11.3 fL 9.4-12.3 NUCLEATED RED BLOOD CELLS (BEAKER) (test 0 /100 WBC 0-0 idcy=225) TROPONIN [id number] 01:18:00 Test Item Value Reference Range Comments TROPONIN I (BEAKER) (test dydn=525) 0.04 ng/mL 0.00-0.03 Troponin I (TnI) levels [...] failure, acidosis, acute neurological disease, and persistent tachyarrhythmia.[id number] 01:13:00 Test Item Value Reference Range Comments MAGNESIUM (BEAKER) (test iobm=625) 1.6 mg/dL 1.6-2.6 BASIC METABOLIC [id number] 01:13:00 Test Item Value Reference Range Comments SODIUM (BEAKER) (test 138 meq/L 136-145 tixc=701) POTASSIUM (BEAKER) (test 3.7 meq/L 3.5-5.1 oqae=573) CHLORIDE (BEAKER) (test 109 meq/L 98-107 tbam=084) CO2 (BEAKER) (test 26 meq/L 22-29 yhad=504) BLOOD UREA NITROGEN 15 mg/dL 7-21 (BEAKER) (test qnae=643) CREATININE (BEAKER) (test 0.74 mg/dL 0.57-1.25 jbre=954) GLUCOSE RANDOM (BEAKER) 147 mg/dL 70-105 (test lzqn=881) CALCIUM (BEAKER) (test 10.0 mg/dL 8.4-10.2 jadh=899) EGFR (BEAKER) (test 76 mL/min/1.73 sq m ESTIMATED GFR IS NOT wsvu=6802) ACCURATE CREATININE CLEARANCE IN PREDICTING GLOMERULAR FILTRATION RATE. ESTIMATED GFR IS NOT APPLICABLE FOR DIALYSIS PATIENTS. HEPATIC FUNCTION [id number] 01:13:00 Test Item Value Reference Range Comments TOTAL PROTEIN (BEAKER) (test onin=358) 5.8 gm/dL 6.0-8.3 ALBUMIN (BEAKER) (test denm=1175) 3.1 g/dL 3.5-5.0 BILIRUBIN TOTAL (BEAKER) (test mvwz=948) 1.0 mg/dL 0.2-1.2 BILIRUBIN DIRECT (BEAKER) (test mosk=531) 0.6 mg/dL 0.1-0.5 ALKALINE PHOSPHATASE (BEAKER) (test rvos=355) 75 U/L 40-150 AST (SGOT) (BEAKER) (test saym=600) 20 U/L 5-34 ALT (SGPT) (BEAKER) (test zfoe=537) 18 U/L 6-55 [id number] 01:13:00 Test Item Value Reference Range Comments LIPASE (BEAKER) (test hicu=884) 23 U/L 8-78 RAD, CHEST, 1 VIEW, NON [id number] 23:47:00Reason for exam:->piccShould this be performed at [...] Ndiaye Verified Date/Time: 08/10/2018 23:47:27 Reading Location: [address] Consult Reading Room POCT-GLUCOSE [id number] 23:29:00 Test Item Value Reference Range Comments POC-GLUCOSE METER (BEAKER) 158 mg/dL 70-[address] [facility] [address] [facility] (test wqij=6116) [facility] [address] HEMOGLOBIN [id number] 22:17:00 Test Item Value Reference Range Comments HEMOGLOBIN A1C (BEAKER) (test tltt=959) 7.5 % 4.3-6.1 T4, [id number] 20:54:00 Test Item Value Reference Range Comments FREE T4 (BEAKER) (test qsjo=884) 0.86 ng/dL 0.70-1.48 TSH/FREE T4 IF [id number] 20:22:00 Test Item Value Reference Range Comments THYROID STIMULATING HORMONE (BEAKER) (test 0.30 uIU/mL 0.35-4.94 tzqk=752) [id number] 19:31:00 Test Item Value Reference Range Comments AMMONIA (BEAKER) (test mgdz=096) 29 mol/L 18-72 B-TYPE NATRIURETIC FACTOR (BNP)2018-08-10 18:48:00 Test Item Value Reference Range Comments B-TYPE NATRIURETIC PEPTIDE (BEAKER) (test 876 pg/mL 0-100 vsig=907) LACTIC ACID, [id number] 18:47:00 Test Item Value Reference Range Comments LACTATE BLOOD VENOUS (2) 1.0 mmol/L 0.5-2.2 Specimen slightly hemolyzed (BEAKER) (test gaql=5232) POCT-GLUCOSE [id number] 18:30:00 Test Item Value Reference Range Comments POC-GLUCOSE METER (BEAKER) 149 mg/dL 70-[address] [facility] [address] [place] [address] (test qmqx=0035) [facility] [address] PT/[id number] 18:27:00 Test Item Value Reference Range Comments PROTIME (BEAKER) (test adig=683) 14.8 seconds 11.9-14.2 INR (BEAKER) (test mbuq=737) 1.2 <=5.9 PARTIAL THROMBOPLASTIN TIME (BEAKER) (test 30.3 seconds 22.5-36.0 fbsu=299) Effective 07/15/2018: PT Reference Range ChangeNew: 11.9-14.2 Previous: 11.7- 14.7RECOMMENDED COUMADIN/WARFARIN INR THERAPY RANGESSTANDARD DOSE: 2.0-3.0 Includes: PROPHYLAXIS for venous thrombosis, systemic embolization; TREATMENT for venous thrombosis and/or pulmonary embolus.HIGH RISK: Target INR is2.5-3.5 for patients wiht mechanical heart valves.CBC W/PLT COUNT & AUTO [id number] 18:08:00 Test Item Value Reference Range Comments WHITE BLOOD CELL COUNT (BEAKER) (test gqdn=131) 15.4 K/ L 3.5-10.5 RED BLOOD CELL COUNT (BEAKER) (test cahp=351) 3.77 M/ L 3.93-5.22 HEMOGLOBIN (BEAKER) (test fugc=072) 11.8 GM/DL 11.2-15.7 HEMATOCRIT (BEAKER) (test hnbr=966) 36.2 % 34.1-44.9 MEAN CORPUSCULAR VOLUME (BEAKER) (test qvkp=259) 96.0 fL 79.4-94.8 MEAN CORPUSCULAR HEMOGLOBIN (BEAKER) (test 31.3 pg 25.6-32.2 xkou=863) MEAN CORPUSCULAR HEMOGLOBIN CONC (BEAKER) (test 32.6 GM/DL 32.2-35.5 wxfd=351) RED CELL DISTRIBUTION WIDTH (BEAKER) (test 16.1 % 11.7-14.4 afvo=038) PLATELET COUNT (BEAKER) (test omxq=181) 140 K/CU MM 150-450 MEAN PLATELET VOLUME (BEAKER) (test qbyt=551) 11.0 fL 9.4-12.3 NUCLEATED RED BLOOD CELLS (BEAKER) (test 0 /100 WBC 0-0 tjwa=980) NEUTROPHILS RELATIVE PERCENT (BEAKER) (test 82 % hkrq=583) LYMPHOCYTES RELATIVE PERCENT (BEAKER) (test 8 % pwpv=067) MONOCYTES RELATIVE PERCENT (BEAKER) (test 8 % pdad=943) EOSINOPHILS RELATIVE PERCENT (BEAKER) (test 0 % syjl=364) BASOPHILS RELATIVE PERCENT (BEAKER) (test 0 % xioj=327) NEUTROPHILS ABSOLUTE COUNT (BEAKER) (test 12.69 K/ L 1.56-6.13 myum=998) LYMPHOCYTES ABSOLUTE COUNT (BEAKER) (test 1.24 K/ L 1.18-3.74 lgsk=005) MONOCYTES ABSOLUTE COUNT (BEAKER) (test 1.21 K/ L 0.24-0.36 lahq=875) EOSINOPHILS ABSOLUTE COUNT (BEAKER) (test 0.02 K/ L 0.04-0.36 jzrq=590) BASOPHILS ABSOLUTE COUNT (BEAKER) (test 0.04 K/ L 0.01-0.08 blpk=476) IMMATURE GRANULOCYTES-RELATIVE PERCENT (BEAKER) 2 % 0-1 (test aikx=9829)
[2018-11-09] MEDS ORDERED: NA CHLORIDE 0.9% 1,000 ML ONE (13:42)
--- NOTE | 2018-11-09 14:28 | RAD REPORT ---
EXAM DESCRIPTION: RAD - Chest Single View - 11/09/2018 2:17 pm CLINICAL HISTORY: CHEST PAIN Chest pain. COMPARISON: Abdomen 1 View (KUB) dated 10/13/2018; Abdomen 1 View (KUB) dated 10/06/2018; Chest Pa And Lat (2 Views) dated 10/04/2018; Abdomen 1 View (KUB) dated 10/03/2018 FINDINGS: Portable technique limits examination quality. The lungs are mildly emphysematous but grossly clear. The heart is normal in size. No displaced fract ures. IMPRESSION: No acute intrathoracic process suspected.
[2018-11-09] MEDS ORDERED: HYDROMORPHONE HCL 0.5 MG/0.5 ML INJ ONE (14:37)
[2018-11-09] MEDS ORDERED: ONDANSETRON 4 MG/2 ML VIAL ONE ×2 (14:37→15:14)
[2018-11-09 14:51] LABS: Protime INR 1.22
[2018-11-09 14:55] LABS: Absolute Lymphocytes (CBC) 1.5 K/uL (0.7-4.9); Basophils % 1.2 % (0-1.3); Hematocrit 39.4 % (36.0-45.0); RBC Red Blood Cell Count 4.33 M/uL (3.86-4.86)
[2018-11-09] MEDS ORDERED: PROMETHAZINE 25 MG/ML VIAL ONE (15:19)
[2018-11-09 15:41] LABS: ALT/SGPT 46 U/L (12-78); AST/SGOT 43 U/L (15-37); Albumin 2.8 g/dL (3.4-5.0); Alkaline Phosphatase 111 U/L (45-117); BUN Blood Urea Nitrogen 31 mg/dL (7-18); Bicarbonate 26 mmol/L (21-32); Bilirubin Direct 0.1 mg/dL (0-0.2); Bilirubin Total 0.3 mg/dL (0.2-1.0); Glucose Level 150 mg/dL (74-106); Lipase 538 U/L (73-393); Magnesium 2.2 mg/dL (1.8-2.4); NT PRO-BNP 1131 pg/mL (<450); Potassium 4.9 mmol/L (3.5-5.1); Protein, Total 7.7 g/dL (6.4-8.2); Sodium Level 138 mmol/L (136-145); Troponin (Emerg Dept Use Only) < 0.02 ng/mL (0.0-0.045)
--- NOTE | 2018-11-09 15:42 | EKG ---
Test Date: 2018-11-09 Test Time: 14:10:56 Valet Attendant: MARILUZ MEASUREMENT RESULTS: Intervals: Rate: 80 HI: 150 QRSD: 80 QT: 324 QTc: 373 [place]: P: -1 HI: 150 QRS: -1 T: 136 INTERPRETIVE STATEMENTS: Normal sinus rhythm ST & T wave abnormality, consider lateral ischemia Abnormal ECG Compared to ECG 10/12/2018 15:10:04 ST (T wave) deviation now present Possible ischemia now present T-wave abnormality no longer present Electronically Signed On 11-09-18 15:42:22 CDT by Jese Stewart
--- NOTE | 2018-11-09 16:14 | RAD REPORT ---
EXAM DESCRIPTION: CT - Chest Abd Pelvis Wo Con - 11/09/2018 3:53 pm CLINICAL HISTORY: Chest and abdominal pain COMPARISON: October 18, [address] chest TECHNIQUE: Computed axial tomography of the chest, abdomen and pelvis was obtained. Oral contrast wa s given. IV contrast was not requested. All CT scans are performed using dose optimization technique as appropriate and may include automated exposure control or mA/KV adjustment according to patient size. FINDINGS: The evaluation of mediastinum, elliott, vessels and solid organs is limited secondary to the lack of IV contrast administration Mild chronic lung opacities No mediastinal or hilar lymphadenopathy is seen. Ascending thoracic aorta is ectatic measuring 4 lissy timeters A pleural effusion is not present. A pericardial effusion is not seen. A lung consolidation is not present. The lungs are essentially clear. Pneumobilia again demonstrated Spleen, pancreas, adrenals and left kidney appear grossly normal Right ureteral stent in place. Mild right hydronephrosis. Two right renal calculi measuring 4 millimeters. Calculi within the mid to distal right ureter. Ventral abdominal hernia mesh which is calcified again demonstrated 1 There is no evidence of diverticulitis. IMPRESSION: Right ureteral stent with mild right hydronephrosis. Right renal calculi. Right ureteral calculi
--- NOTE | 2018-11-09 16:14 | RAD REPORT ---
EXAM DESCRIPTION: RAD - Abdomen 1 View (KUB) - 11/09/2018 2:58 pm CLINICAL HISTORY: Abdomen pain. FINDINGS: The bowel gas pattern is unremarkable. Right ureteral stent in place Tube right renal calculi measuring 4 millimeters Vague calcifications within the mid to distal right ureter
--- NOTE | 2018-11-09 16:14 | ER ---
Nurse's Notes [facility] Name: Judy Puri Age: 78 yrs Sex: Female : 1940 Arrival Date: 11/09/2018 Time: 13:22 Bed 6 Private MD: Roscoe Pino E Diagnosis: Other chest pain;Abdominal tenderness;Unspecified kidney failure;Urinary tract infection, site not specified;Type 2 diabetes mellitus;Hydronephrosis with ureteral stricture, not elsewhere classified Presentation: 11/09 13:35 Presenting complaint: Patient states: "I'VE GOT A HURTING IN MY LEFT LUNG AND I'M bp PEEING ALL OVER MYSELF". Transition of care: patient was not received from another setting of care. Onset of symptoms is unknown. Risk Assessment: Do you want to hurt yourself or someone else? Patient reports no desire to harm self or others. Initial Sepsis Screen: Does the patient meet any 2 criteria? No. Patient's initial sepsis screen is negative. Does the patient have a suspected source of infection? No. Patient's initial sepsis screen is negative. Care prior to arrival: None. 13:35 Method Of Arrival: Wheelchair bp 13:35 Acuity: JONATHAN 2 bp Historical: - Allergies: 13:36 Codeine; sg 13:36 Propoxyphene HCl; sg - PMHx: 13:36 Arthritis; Atrial Fib; cardiac stent; Diabetes - NIDDM; GALLSTONES; Hypertension; sg Myocardial infarction; - Immunization history:: Adult Immunizations up to date. - Social history:: Smoking status: Patient/guardian denies using tobacco. - Ebola Screening: : No symptoms or risks identified at this time. - Family history:: not pertinent. Screenin:35 Abuse screen: Denies threats or abuse. Denies injuries from another. Nutritional jl7 screening: No deficits noted. Tuberculosis screening: No symptoms or risk factors identified. Fall Risk IV access (20 points). Total Chan Fall Scale indicates No Risk (0-24 pts). Assessment: 13:35 General: Appears in no apparent distress. uncomfortable, Behavior is cooperative. Pain: jl7 Complains of pain in left lateral anterior chest Pain currently is 9 out of 10 on a pain scale. Neuro: Level of Consciousness is awake, alert, obeys commands, Oriented to person, place, time. Cardiovascular: Heart tones present Patient's skin is warm and dry. Respiratory: Airway is patent Respiratory effort is even, unlabored, Respiratory pattern is regular, symmetrical. GI: Bowel sounds present X 4 quads. Abd is soft X 4 quads Abdomen is tender to palpation in left upper quadrant Reports nausea. : Reports incontinence. EENT: No signs and/or symptoms were reported regarding the EENT system. Derm: Skin is pink, warm \\T\\ dry. Musculoskeletal: No signs and/or symptoms reported regarding the musculoskeletal system. Vital Signs: 13:35 BP 136 / 68; Pulse 96; Resp 17 S; Pulse Ox 99% on R/A; sg 15:30 BP 136 / 91; Pulse 90; Resp 16 S; Pulse Ox 100% on R/A; jl7 16:30 BP 130 / 71; Pulse 86; Resp 16 S; Pulse Ox 100% on R/A; jl7 17:20 BP 142 / 68; Pulse 86; Resp 18; Temp 98(O); Pulse Ox 99% on R/A; jl7 ED Course: 13:22 Patient arrived in ED. mr 13:22 Roscoe Pino MD is Private Physician. mr 13:34 Twyla Tracy, NATALI is Primary Nurse. jl7 13:34 Buster Hawkins MD is Attending Physician. raad 13:35 Arm band placed on. bp 13:35 Patient has correct armband on for positive identification. Placed in gown. Bed in low jl7 position. Call light in reach. Side rails up X 1. quality assurance monitor chassis on. Pulse ox on. NIBP on. Warm blanket given. 13:36 Triage completed. bp 14:10 Missed attempt(s): 22 gauge in left forearm. Bleeding controlled, band aid applied, jl7 catheter tip intact. 14:11 Missed attempt(s): 22 gauge in left antecubital area. Bleeding controlled, band aid jl7 applied, catheter tip intact. 14:19 XRAY Chest (1 view) In Process Unspecified. EDMS 14:33 Initial lab(s) drawn, by me, sent to lab. Inserted saline lock: 20 gauge in left dh3 antecubital area, using aseptic technique. Blood collected. 14:41 Radiology exam delayed due to lab results not completed at this time. (BUN/Creatinine) mw3 IV insertion attempt and/or patient not having appropriate IV at this time. 15:01 Abdomen 1 View (KUB) XRAY In Process Unspecified. EDMS 15:03 Radiology exam delayed due to lab results not completed at this time. (BUN/Creatinine). mw3 15:21 Urine collected: straight cath specimen, clear. Straight cath inserted, using sterile jl7 technique, 16 Fr. Specimen obtained. Returned clear yellow urine. Patient tolerated well. 15:54 Chest Abd Pelvis Wo Con In Process Unspecified. EDMS 16:12 Martha Calderon MD is Hospitalizing Provider. [facility] 17:23 No provider procedures requiring assistance completed. Patient admitted, IV remains in jl7 place. intact, No redness/swelling at site. Administered Medications: 14:42 Drug: NS 0.9% 1000 ml Route: IV; Rate: 125 ml/hr; Site: left antecubital; jl7 17:23 Follow up: Response: No adverse reaction; IV Status: Infusion continued upon admission jl7 14:42 Drug: Zofran 4 mg Route: IVP; Site: left antecubital; jl7 15:00 Follow up: Response: No adverse reaction; Nausea unchanged jl7 14:44 Drug: Dilaudid 0.5 mg Route: IVP; Site: left antecubital; jl7 15:00 Follow up: Response: No adverse reaction; Pain is decreased jl7 15:14 CANCELLED (Duplicate Order): Zofran 4 mg IVP once; over 2 minutes hb 15:15 Drug: Zofran 4 mg Route: IVP; Site: left antecubital; jl7 15:16 Follow up: Response: No adverse reaction; No change in condition jl7 15:21 Drug: Phenergan 12.5 mg Route: IVP; Site: left antecubital; jl7 15:30 Follow up: Response: No adverse reaction; Nausea is decreased jl7 16:40 Drug: Rocephin 1 grams Route: IV; Rate: per protocol; Site: left antecubital; jl7 16:43 Follow up: Response: No adverse reaction; IV Status: Completed infusion jl7 Outcome: 16:13 Decision to Hospitalize by Provider. raad 17:23 Admitted to Tele accompanied by tech, family with patient, via stretcher, room 224, jl7 with chart, Report called to NATALI Man 17:23 Condition: stable 17:23 Discharge instructions given to patient, family, Instructed on the need for admit, Demonstrated understanding of instructions. 17:57 Patient left the ED. jl7 Signatures: Dispatcher [employer] Elton Hodgson, Buster Clark RN, MD MD cha Rivera, Mary mr TracyTwyla RN RN jl7 Adelina Rocha 3 Leland Spencer RN RN bp Willis, Michelle 3 Jessica Parada RN Corrections: (The following items were deleted from the chart) 17:22 17:22 Response: No adverse reaction; No change in condition jl7 jl7
--- NOTE | 2018-11-09 16:14 | EDPHYS ---
Physician Documentation [facility] Name: Judy Puri Age: 78 yrs Sex: Female : 1940 Arrival Date: 11/09/2018 Time: 13:22 Bed 6 Private MD: Roscoe Pino E ED Physician Buster Hawkins HPI: 11/09 14:23 This 78 yrs old Female presents to ER via Wheelchair with complaints of raad Abdominal Pain. 14:23 The patient or guardian reports chest pain that is located primarily in the substernal raad area, anterior chest wall, left. Onset: just prior to arrival, this morning. The patient presents with abdominal pain in the lower abdomen, in the left lower quadrant, abdominal distention in the upper abdomen, in the lower abdomen. Onset: The symptoms/episode began/occurred just prior to arrival, this morning. The pain does not radiate. Associated signs and symptoms: none. Modifying factors: The symptoms are alleviated by nothing, the symptoms are aggravated by breathing deeply, movement, pressure. Associated signs and symptoms: The patient has no apparent associated signs or symptoms. The chest pain is described as a heaviness, a pressure, sharp. Historical: - Allergies: 13:36 Codeine; sg 13:36 Propoxyphene HCl; sg - PMHx: 13:36 Arthritis; Atrial Fib; cardiac stent; Diabetes - NIDDM; GALLSTONES; Hypertension; sg Myocardial infarction; - Immunization history:: Adult Immunizations up to date. - Social history:: Smoking status: Patient/guardian denies using tobacco. - Ebola Screening: : No symptoms or risks identified at this time. - Family history:: not pertinent. ROS: 14:23 Constitutional: Negative for fever, chills, and weight loss, Eyes: Negative for injury, raad pain, redness, and discharge, ENT: Negative for injury, pain, and discharge, Neck: Negative for injury, pain, and swelling, Respiratory: Negative for shortness of breath, cough, wheezing, and pleuritic chest pain, Back: Negative for injury and pain, : Negative for injury, bleeding, discharge, and swelling, MS/Extremity: Negative for injury and deformity, Skin: Negative for injury, rash, and discoloration, Neuro: Negative for headache, weakness, numbness, tingling, and seizure, Psych: Negative for depression, anxiety, suicide ideation, homicidal ideation, and hallucinations, Allergy/Immunology: Negative for hives, rash, and allergies, Endocrine: Negative for neck swelling, polydipsia, polyuria, polyphagia, and marked weight changes, Hematologic/Lymphatic: Negative for swollen nodes, abnormal bleeding, and unusual bruising. 14:23 Cardiovascular: Positive for chest pain. 14:23 Abdomen/GI: Positive for abdominal pain, abdominal cramps, of the left lower quadrant. Exam: 14:23 Constitutional: This is a well developed, well nourished patient who is awake, alert, raad and in no acute distress. Head/Face: Normocephalic, atraumatic. Eyes: Pupils equal round and reactive to light, extra-ocular motions intact. Lids and lashes normal. Conjunctiva and sclera are non-icteric and not injected. Cornea within normal limits. Periorbital areas with no swelling, redness, or edema. ENT: Nares patent. No nasal discharge, no septal abnormalities noted. Tympanic membranes are normal and external auditory canals are clear. Oropharynx with no redness, swelling, or masses, exudates, or evidence of obstruction, uvula midline. Mucous membranes moist. Neck: Trachea midline, no thyromegaly or masses palpated, and no cervical lymphadenopathy. Supple, full range of motion without nuchal rigidity, or vertebral point tenderness. No Meningismus. Cardiovascular: Regular rate and rhythm with a normal S1 and S2. No gallops, murmurs, or rubs. Normal PMI, no JVD. No pulse deficits. Respiratory: Lungs have equal breath sounds bilaterally, clear to auscultation and percussion. No rales, rhonchi or wheezes noted. No increased work of breathing, no retractions or nasal flaring. Back: No spinal tenderness. No costovertebral tenderness. Full range of motion. Female : Normal external genitalia. Skin: Warm, dry with normal turgor. Normal color with no rashes, no lesions, and no evidence of cellulitis. 14:23 Chest/axilla: Inspection: normal, no acute changes, Palpation: tenderness, that is mild, of the left lateral posterior chest and left lateral anterior chest, Axilla: are normal, no acute changes, Breasts: are normal, no acute changes, Lymph nodes: lymphadenopathy is not appreciated. Vital Signs: 13:35 BP 136 / 68; Pulse 96; Resp 17 S; Pulse Ox 99% on R/A; sg 15:30 BP 136 / 91; Pulse 90; Resp 16 S; Pulse Ox 100% on R/A; jl7 16:30 BP 130 / 71; Pulse 86; Resp 16 S; Pulse Ox 100% on R/A; jl7 17:20 BP 142 / 68; Pulse 86; Resp 18; Temp 98(O); Pulse Ox 99% on R/A; jl7 MDM: 13:34 Patient medically screened. [facility] 14:26 Data reviewed: vital signs, nurses notes, lab test result(s), EKG, radiologic studies, [facility] CT scan, plain films. 11/09 13:36 Order name: Basic Metabolic Panel; Complete Time: 15:55 [facility] 11/09 13:36 Order name: CBC with Diff; Complete Time: 15:01 [facility] 11/09 13:36 Order name: LFT's; Complete Time: 15:55 [facility] 11/09 13:36 Order name: Magnesium; Complete Time: 15:55 [facility] 11/09 13:36 Order name: NT PRO-BNP; Complete Time: 15:55 [facility] 11/09 13:36 Order name: PT-INR; Complete Time: 15:01 [facility] 11/09 13:36 Order name: Troponin (emerg Dept Use Only); Complete Time: 15:55 [facility] 11/09 13:36 Order name: XRAY Chest (1 view); Complete Time: 15:01 [facility] 11/09 13:36 Order name: Lipase; Complete Time: 15:55 [facility] 11/09 13:36 Order name: Urine Culture [facility] 11/09 14:23 Order name: Abdomen 1 View (KUB) XRAY; Complete Time: 16:46 [facility] 11/09 15:20 Order name: Urine Dipstick--Ancillary (enter results); Complete Time: 16:46 bd 11/09 15:48 Order name: Chest Abd Pelvis Wo Con; Complete Time: 16:46 EDMS 11/09 13:36 Order name: EKG; Complete Time: 14:01 [facility] 11/09 13:36 Order name: Cardiac monitoring; Complete Time: 14:16 [facility] 11/09 13:36 Order name: EKG - Nurse/Tech; Complete Time: 15:22 [facility] 11/09 13:36 Order name: IV Saline Lock; Complete Time: 14:38 [facility] 11/09 13:36 Order name: Labs collected and sent; Complete Time: 14:38 [facility] 11/09 13:36 Order name: O2 Per Protocol; Complete Time: 13:51 [facility] 11/09 13:36 Order name: O2 Sat Monitoring; Complete Time: 13:51 [facility] 11/09 13:36 Order name: Urine Dipstick-Ancillary (obtain specimen); Complete Time: 15:22 [facility] 11/09 16:49 Order name: CONS Physician Consult EDMS Administered Medications: 14:42 Drug: NS 0.9% 1000 ml Route: IV; Rate: 125 ml/hr; Site: left antecubital; jl7 17:23 Follow up: Response: No adverse reaction; IV Status: Infusion continued upon admission jl7 14:42 Drug: Zofran 4 mg Route: IVP; Site: left antecubital; jl7 15:00 Follow up: Response: No adverse reaction; Nausea unchanged jl7 14:44 Drug: Dilaudid 0.5 mg Route: IVP; Site: left antecubital; jl7 15:00 Follow up: Response: No adverse reaction; Pain is decreased jl7 15:14 CANCELLED (Duplicate Order): Zofran 4 mg IVP once; over 2 minutes hb 15:15 Drug: Zofran 4 mg Route: IVP; Site: left antecubital; jl7 15:16 Follow up: Response: No adverse reaction; No change in condition jl7 15:21 Drug: Phenergan 12.5 mg Route: IVP; Site: left antecubital; jl7 15:30 Follow up: Response: No adverse reaction; Nausea is decreased jl7 16:40 Drug: Rocephin 1 grams Route: IV; Rate: per protocol; Site: left antecubital; jl7 16:43 Follow up: Response: No adverse reaction; IV Status: Completed infusion jl7 Disposition: 11/09/18 16:13 Hospitalization ordered by Martha Calderon for Inpatient Admission. Preliminary diagnosis are Other chest pain, Abdominal tenderness, Unspecified kidney failure, Urinary tract infection, site not specified, Type 2 diabetes mellitus, Hydronephrosis with ureteral stricture, not elsewhere classified. - Bed requested for Telemetry/MedSurg (Inpatient). - Status is Inpatient Admission. jl7 - Condition is Fair. - Problem is new. - Symptoms have improved. UTI on Admission? Yes Signatures: Dispatcher [employer] [facility] Devi Rosario, RN NATALI Elton Snowden RN NATALI Buster Hawkins MD MD cha Baxter, Heather, RN RN Twyla Tracy, RN RN jl7 Leland Spencer, RN RN bp Corrections: (The following items were deleted from the chart) 15:14 15:14 Zofran 4 mg IVP once; over 2 minutes ordered. hb hb 15:48 14:25 Angio Aorta For Dissection+CT.RAD.BRZ ordered. EDVT EDVT 16:50 16:13 Hospitalization Ordered by Martha Calderon MD for Inpatient Admission. Preliminary [facility] diagnosis is Other chest pain; Abdominal tenderness; Unspecified kidney failure; Urinary tract infection, site not specified; Type 2 diabetes mellitus. Bed requested for Telemetry/MedSurg (Inpatient). Status is Inpatient Admission. Condition is Fair. Problem is new. Symptoms have improved. UTI on Admission? Yes. [facility] 17:12 16:50 11/09/2018 16:13 Hospitalization Ordered by Martha Calderon MD for Inpatient Admission. Preliminary diagnosis is Other chest pain; Abdominal tenderness; Unspecified kidney failure; Urinary tract infection, site not specified; Type 2 diabetes mellitus; Hydronephrosis with ureteral stricture, not elsewhere classified. Bed requested for Telemetry/MedSurg (Inpatient). Status is Inpatient Admission. Condition is Fair. Problem is new. Symptoms have improved. UTI on Admission? Yes. [facility] 17:57 17:12 11/09/2018 16:13 Hospitalization Ordered by Martha Calderon MD for Inpatient jl7 Admission. Preliminary diagnosis is Other chest pain; Abdominal tenderness; Unspecified kidney failure; Urinary tract infection, site not specified; Type 2 diabetes mellitus; Hydronephrosis with ureteral stricture, not elsewhere classified. Bed requested for Telemetry/MedSurg (Inpatient). Status is Inpatient Admission. Condition is Fair. Problem is new. Symptoms have improved. UTI on Admission? Yes.
[2018-11-09 16:15] LABS: Urine Blood TRACE (NEG); Urine Glucose NEGATIVE (NEG); Urine Protein TRACE (NEG); Urine Specific Gravity 1.015 (1.005-1.030); Urine pH 6.5 (5.0-7.0)
[2018-11-09] MEDS ORDERED: CEFTRIAXONE/SWI 1gm 1 GM/10 ML SYR ONE (16:21)
[2018-11-09] MEDS: NA CHLORIDE 0.9% 1,000 ML IV SCH (17:00)
[2018-11-09 17:50] VITALS: BMI 29.0
--- NOTE | 2018-11-09 18:00 | P.HP ---
Certification for Inpatient Patient admitted to: Observation With expected LOS: <2 Midnights Patient will require the following post-hospital care: None Practitioner: I am a practitioner with admitting privileges, knowledge of patient current condition, hospital course, and medical plan of care. Services: Services provided to patient in accordance with Admission requirements found in Title 42 Section 412.3 of the Code of Federal Regulations Patient History Date of Service: 11/09/18 History of Present Illness: This is a 78-year-old with significant past medical history who presents to the ED complaining of having left lower abdominal pain. Patient stated that her left abdominal pain started about 2 days ago and has got progressively worse today it got unbearable and the she decided to come to the ER. Patient states that her pain is now more generalized than before. Patient has had frequent visits here to the hospital for nephrolithiasis with hydronephrosis along with hypoglycemia and chronic pain syndrome as well. Patient was last time transfer to the [facility] for a ERCP due to abnormal CBD and was found to have polyps in the CBD which was removed at that time and then stent was placed as well. Patient still has a right-sided urethral stent in place as well. Patient denies having any nausea vomiting fever chest pain or shortness of breath at this time. Does state however has been having on and off chills. Also denies having any diarrhea or constipation at this time. Patient states that she also has been having increased urination and has not been able to make it to the bathroom on time. In the ER patient was found to have elevated lipase along with abdominal CT finding of right-sided urethral stone of 4 mm and stent and a KI and thus was admitted to the hospital for further care Allergies codeine Adverse Reaction (Mild, Verified 10/12/18 20:11) Rash propoxyphene HCl [From Darvon] Adverse Reaction (Verified 10/12/18 20:11) Rash Home Medications: Aspirin 1 tab PO DAILY 10/03/18 Atorvastatin Calcium 10 mg PO DAILY 10/03/18 Cetirizine HCl [Zyrtec] 10 mg PO DAILY 10/03/18 Furosemide 20 mg PO BID 10/03/18 Gabapentin 300 mg PO BID 10/03/18 Krill/[place]-3/Dha/Epa/Lipids [Krill Oil 350 mg Softgel] 1 cap PO DAILY 10/03/18 L.acidoph,Paracasei, B.lactis [Probiotic] 1 cap PO DAILY 10/03/18 Losartan Potassium 100 mg PO DAILY 10/03/18 Metoprolol Tartrate 25 mg PO BID 10/03/18 Mv-Mn/Folic Acid/Vit [id number] [Alive Once Daily Women 50 Plus] 1 tab PO DAILY 10/03/18 Omeprazole [Prilosec] 40 mg PO DAILY 10/03/18 Sennosides/Docusate Sodium [Senna Laxative Tablet] 2 tab PO BID 10/03/18 ALPRAZolam [Xanax*] 0.25 mg PO BID PRN #15 tab 10/07/18 Amitriptyline [Elavil*] 10 mg PO BEDTIME #30 tab 10/21/18 traMADol HCL [Ultram*] 50 mg PO Q6H PRN tab 10/21/18 - Past Medical/Surgical History Diabetic: Yes -: HTN -: NIDDM -: Pancreatitis -: HLD -: CHRONIC PAIN -: ARTHRITIS -: NEUROPATHY -: ACS -: CAD -: SC -: Falls, recurrent -: AFIB -: Hysterectomy -: Bladder suspension x3 -: Cholecystectomy -: Heart catheterization with stent -: ERCP with removal of stone -: Lithrotripsy -: Cystoscopy Psychosocial/ Personal History: Patient is . She has no children - Family History Father -: Heart disease Brother -: Heart disease - Social History Alcohol use: No CD- Drugs: No Caffeine use: No Review of Systems 10-point ROS is otherwise unremarkable Physical Examination - Vital Signs Temperature: 97.1 F Blood Pressure: 123/83 Pulse: 92 Respirations: 16 Pulse Ox (%): 97 - Physical Exam General: Alert, In no apparent distress HEENT: Atraumatic, PERRLA, Mucous membr. moist/pink, EOMI, Sclerae nonicteric Neck: Supple, 2+ carotid pulse no bruit, No LAD, Without JVD or thyroid abnormality Respiratory: Clear to auscultation bilaterally, Normal air movement Cardiovascular: Regular rate/rhythm, Normal S1 S2 Gastrointestinal: Normal bowel sounds, Tenderness (Generalized tenderness) Musculoskeletal: No tenderness Integumentary: No rashes Neurological: Normal gait, Normal speech, Normal strength at 5/5 x4 extr, Normal tone, Normal affect Lymphatics: No axilla or inguinal lymphadenopathy - Studies Laboratory Data (last 24 hrs) 11/09/18 14:33: PT 14.3 H, INR 1.22 11/09/18 14:33: WBC 11.1 H, Hgb 13.2, Hct 39.4, Plt Count 298 11/09/18 14:33: Sodium 138, Potassium 4.9, BUN 31 H, Creatinine 1.75 H, Glucose 150 H, Magnesium 2.2, Total Bilirubin 0.3, AST 43 H, ALT 46, Alkaline Phosphatase 111, Lipase 538 H Assessment and Plan - Problems (Diagnosis) (1) Acute kidney injury Current Visit: Yes Status: Acute Plan: Acute kidney injury most likely secondary to obstructive uropathy -abdominal CT with right-sided hydronephrosis along with 4 mm stone and stent in place -will consult urology to review patient's chart to see any other further recommendations are provided -will continue patient on IV fluids here at this time -await nephrotoxic agent (2) Abdominal pain Current Visit: No Status: Acute Plan: Left lower quadrant abdominal pain which is now more generalized in nature -most likely secondary to UTI versus enteritis -will start patient on IV Cipro and Flagyl here in the hospital -will monitor patient -initial abdominal CT negative for any acute abnormality Qualifiers: Abdominal location: left lower quadrant Qualified Code(s): R10.32 - Left lower quadrant pain (3) Pancreatitis Current Visit: No Status: Acute Plan: Clinical pancreatitis with elevated lipase -NPO at this time along with IV fluids -pain management -patient does have chronic pain syndrome monitor closely for narcotic abuse Qualifiers: Chronicity: acute Pancreatitis type: biliary Acute pancreatitis complication: no infection or necrosis Qualified Code(s): K85.10 - Biliary acute pancreatitis without necrosis or infection (4) Coronary artery disease Current Visit: No Status: Chronic Qualifiers: Coronary Disease-Associated Artery/Lesion type: [place] artery Associated angina: without angina (5) Diabetes mellitus Current Visit: No Status: Chronic Qualifiers: Diabetes mellitus type: type 2 Diabetes mellitus [facility] insulin use: with termite exterminator use Diabetes mellitus complication status: without complication Qualified Code(s): E11.9 - Type 2 diabetes mellitus without complications; Z79.4 - skilled nursing (current) use of insulin (6) Hypertension Current Visit: No Status: Chronic Qualifiers: Hypertension type: essential hypertension - Plan Admit patient to [facility] for IV fluids and IV antibiotics at this time for a KI and enteritis. Also monitor patient's sleep for pancreatitis worsening. Discharge Plan: Home Plan to discharge in: 48 Hours - Advance Directives Does patient have a Living Will: No Does patient have a Durable POA for Healthcare: No - Code Status/Comfort Care Code Status Assessed: Yes Critical Care: No
[2018-11-09] MEDS ORDERED: PNEUMOCOCCAL VACCINE 0.5 ML IMVAC ONE (19:00)
[2018-11-09] MEDS: HYDROCODONE/APAP 10/325 TAB PO PRN (20:29)
[2018-11-09] MEDS: CIPROFLOXACIN 400mg IV 400 MG/200 ML BAG IV SCH (21:00)
[2018-11-09] MEDS ORDERED: CIPROFLOXACIN 400mg IV 400 MG/200 ML BAG IV SCH (21:00)
[2018-11-09] MEDS: INSULIN -REGULAR HUMAN 50 UNIT/0.5 ML ML SQ SCH (21:00)
[2018-11-09] MEDS ORDERED: LIDOCAINE 1% 20 ML MDV ONE (21:04)
--- NOTE | 2018-11-09 22:08 | CON ---
History Of Present Illness: A 78-year-old female who came to the emergency room for abdominal pain. She reports some chest pain in the substernal area and anterior chest wall towards left that began this morning. The patient said that she has some pain in the left lower quadrant also. Symptoms began this morning as mentioned. There is no radiation. Symptoms are relieved by nothing , but they are aggravated by breathing deeply. The patient also has a DJ stent on the right side with CT scan showing 2 right renal calculi measuring 4 mm and a calculi in the right mid distal ureter with stent in place and some hydronephrosis. Allergies: CODEINE, PROPOXYPHENE. Past Medical History: Arthritis, AFib, cardiac stent, noninsulin-dependent diabetes mellitus, gallstones, hypertension, myocardial infraction. Immunizations: Up to date. Social History: Normal. Review of Systems: Otherwise normal as mentioned above. Physical Examination: Vital Signs: 136/68, pulse 96, respirations 17, pulse ox 99% on room air. HEENT: Atraumatic, normocephalic. Heart: S1, S2. Chest: Clear. Abdomen: Soft, nontender. Extremities: Normal range of motion. Laboratory Data: White count 11.1, H and H are 13 and 39, platelet count 298. Coagulation; PT 14.3, INR 1.22. Chemistry; sodium 139, potassium 4.9, chloride 104, carbon dioxide 26, BUN 31, creatinine 1.75, GFR 28, glucose 150, calcium 11.0, slightly high. Of note, her calcium always on a little bit on the high because of uncertain reason. It was 9.5 last time. Urine study shows pH 6.5, blood trace, nitrite negative, esterase 2+. Assessment & Plan: Abdominal pain, chest pain. The patient is to be cleared medically. She will need a ureteroscopy, stone extraction on Friday. PB/MODL Voice ID: [id number] Report ID: [id number] [email or web address]
[2018-11-10] MEDS: METRONIDAZOLE 500mg IVPB 500 MG/100 ML BAG IV SCH ×3 (01:00→16:49)
[2018-11-10] MEDS: HYDROCODONE/APAP 10/325 TAB PO PRN ×3 (02:10→18:45)
[2018-11-10] MEDS: NA CHLORIDE 0.9% 1,000 ML IV SCH ×2 (03:00→08:10)
[2018-11-10] MEDS ORDERED: PROMETHAZINE 25 MG/ML VIAL IM ONE (05:32)
[2018-11-10 06:05] LABS: Absolute Lymphocytes (CBC) 1.4 K/uL (0.7-4.9); Hematocrit 36.5 % (36.0-45.0); Lymphocytes % 11.8 % (15.3-44.8); MPV 9.1 fL (7.6-11.3)
[2018-11-10 06:17] LABS: Albumin 2.6 g/dL (3.4-5.0); Bilirubin Total 0.4 mg/dL (0.2-1.0); Potassium 5.1 mmol/L (3.5-5.1); Protein, Total 7.1 g/dL (6.4-8.2)
[2018-11-10] MEDS ORDERED: LIDOCAINE 1% MPF 5 ML VIAL ONE (06:44)
[2018-11-10] MEDS: INSULIN -REGULAR HUMAN 50 UNIT/0.5 ML ML SQ SCH ×4 (07:30→21:00)
[2018-11-10] MEDS ORDERED: CEFTRIAXONE 1 GM/NS 50 ML 1 GM/50 ML BAG IV SCH (09:00)
--- NOTE | 2018-11-10 09:07 | P.OP ---
Date of Service: 11/10/18 Findings and Operative Technique Patient with no IV access. PICC line was attempted with no success. I was called for IV access. Patient did not want each a placed. She was okay with getting a central line placed in her right femoral vein. Patient was prepped and draped sterilely. We used Hibiclens to clean the site. Patient was draped in a sterile fashion. 1% lidocaine was used for local anesthesia. Landmarks were identified and femoral vein was accessed. Triple lumen catheter was placed and guidewire was secured. All 3 ports were aspirated & then flushed with saline. Central line was sutured in place. No complications. Minimal blood loss.
--- NOTE | 2018-11-10 12:15 | P.PN ---
Subjective Date of Service: 11/10/18 Subjective: Tolerating diet, Improving, Working w/ PT, Doing well Review of Systems 10-point ROS is otherwise unremarkable Physical Examination - Vital Signs Temperature: 97.4 F Blood Pressure: 145/66 Pulse: 73 Respirations: 19 Pulse Ox (%): 93 - Physical Exam General: Alert, In no apparent distress HEENT: Atraumatic, PERRLA, EOMI Neck: Supple, JVD not distended Respiratory: Clear to auscultation bilaterally, Normal air movement Cardiovascular: Regular rate/rhythm, Normal S1 S2 Gastrointestinal: Normal bowel sounds, No tenderness Musculoskeletal: No tenderness Integumentary: No rashes Neurological: Normal speech, Normal tone, Normal affect Lymphatics: No axilla or inguinal lymphadenopathy - Studies Laboratory Data (last 24 hrs) 11/09/18 14:33: PT 14.3 H, INR 1.22 11/09/18 14:33: WBC 11.1 H, Hgb 13.2, Hct 39.4, Plt Count 298 11/09/18 14:33: Sodium 138, Potassium 4.9, BUN 31 H, Creatinine 1.75 H, Glucose 150 H, Magnesium 2.2, Total Bilirubin 0.3, AST 43 H, ALT 46, Alkaline Phosphatase 111, Lipase 538 H Medications List Reviewed: Yes Assessment And Plan - Current Problems (Diagnosis) (1) UTI (urinary tract infection) Current Visit: Yes Status: Acute Plan: UA consistent with UTI -urine culture positive for 3+ gram-negative esther -On IV cipro at this time -Will f.u with Urine Culture Qualifiers: Urinary tract infection type: acute cystitis Hematuria presence: without hematuria Qualified Code(s): N30.00 - Acute cystitis without hematuria (2) Acute kidney injury Current Visit: Yes Status: Acute Plan: Acute kidney injury most likely secondary to obstructive uropathy -abdominal CT with right-sided hydronephrosis along with 4 mm stone and stent in place -consulted Urology. Pending recommendations -will continue patient on IV fluids here at this time -await nephrotoxic agent (3) Abdominal pain Current Visit: No Status: Acute Plan: Left lower quadrant abdominal pain which is now more generalized in nature -most likely secondary to UTI versus enteritis -On IV Cipro and Flagyl here in the hospital -initial abdominal CT negative for any acute abnormality Qualifiers: Abdominal location: left lower quadrant Qualified Code(s): R10.32 - Left lower quadrant pain (4) Pancreatitis Current Visit: No Status: Acute Plan: Clinical pancreatitis with elevated lipase -pain is much better this morning. Will advance diet to full liquid diet -patient does have chronic pain syndrome monitor closely for narcotic abuse Qualifiers: Chronicity: acute Pancreatitis type: biliary Acute pancreatitis complication: no infection or necrosis Qualified Code(s): K85.10 - Biliary acute pancreatitis without necrosis or infection (5) Coronary artery disease Current Visit: No Status: Chronic Qualifiers: Coronary Disease-Associated Artery/Lesion type: [place] artery Associated angina: without angina (6) Diabetes mellitus Current Visit: No Status: Chronic Qualifiers: Diabetes mellitus type: type 2 Diabetes mellitus intermediate insulin use: with intermediate use Diabetes mellitus complication status: without complication Qualified Code(s): E11.9 - Type 2 diabetes mellitus without complications; Z79.4 - intermission coordinator (current) use of insulin (7) Hypertension Current Visit: No Status: Chronic Qualifiers: Hypertension type: essential hypertension - Plan Pending clinical improvement at this time. Will advance patient's diet to full liquid diet. Continue with IV Cipro and Flagyl at this time. Patient with marked improvement in her symptoms Discharge Plan: Home Plan to discharge in: 48 Hours - Code Status/Comfort Care Code Status Assessed: Yes Critical Care: No
--- NOTE | 2018-11-10 15:58 | PN ---
Subjective: Patient is feeling better today. Patient did come in with a left- sided abdominal pain. The etiology for this is not clear. She does have a right double-J stent and urinary tract growing gram-negative rods. She is on IV antibiotics for this. Would like to get the urine cleared up first and then proceed with a right ureteroscopy, laser stone extraction, and stent replacement. This may not happen until she receive at least 2 to 3 days of IV antibiotics. Thank you very much. ASHLEY Voice ID: [id number] Report ID: [id number]
[2018-11-10] MEDS ORDERED: PANTOPRAZOLE 40 MG INJ IVP ONE (20:58)
[2018-11-10] MEDS: CIPROFLOXACIN 400mg IV 400 MG/200 ML BAG IV SCH (20:58)
[2018-11-10] MEDS ORDERED: SODIUM CHLORIDE 0.9% 10ML INJ IV PRN (20:58)
[2018-11-11] MEDS: METRONIDAZOLE 500mg IVPB 500 MG/100 ML BAG IV SCH (01:11)
[2018-11-11] MEDS: HYDROCODONE/APAP 10/325 TAB PO PRN ×2 (01:22→17:04)
[2018-11-11] MEDS: PANTOPRAZOLE 40MG TABLET PO SCH (05:46)
[2018-11-11 06:24] LABS: Albumin 2.6 g/dL (3.4-5.0); Bilirubin Total 0.4 mg/dL (0.2-1.0); Potassium 4.4 mmol/L (3.5-5.1); Protein, Total 7.1 g/dL (6.4-8.2)
[2018-11-11 06:28] LABS: Absolute Lymphocytes (CBC) 1.3 K/uL (0.7-4.9); Basophils % 0.7 % (0-1.3); Hematocrit 35.3 % (36.0-45.0); Lymphocytes % 12.9 % (15.3-44.8); MPV 9.1 fL (7.6-11.3); RBC Red Blood Cell Count 3.82 M/uL (3.86-4.86)
[2018-11-11] MEDS: INSULIN -REGULAR HUMAN 50 UNIT/0.5 ML ML SQ SCH ×4 (07:30→21:00)
[2018-11-11] MEDS ORDERED: Meropenem 1000 MG/VIAL IV SCH (09:00)
[2018-11-11] MEDS: Meropenem 500 MG in NA CHLORIDE 0.9% 100 ML IV SCH ×2 (09:08→21:52)
--- NOTE | 2018-11-11 12:18 | P.PN ---
Subjective Date of Service: 11/11/18 Patient seen and examined at bedside with RN. Chart reviewed. Case discussed with general surgery. Patient urine cultures positive for multidrug resistant E. coli. Will need to get a central line placed 9th as PICC line was not successfully placed. Will get that done tomorrow Review of Systems 10-point ROS is otherwise unremarkable Physical Examination - Vital Signs Temperature: 97.3 F Blood Pressure: 163/74 Pulse: 63 Respirations: 18 Pulse Ox (%): 94 - Physical Exam General: Alert, In no apparent distress HEENT: Atraumatic, PERRLA, EOMI Neck: Supple, JVD not distended Respiratory: Clear to auscultation bilaterally, Normal air movement Cardiovascular: Regular rate/rhythm, Normal S1 S2 Gastrointestinal: Normal bowel sounds, No tenderness Musculoskeletal: No tenderness Integumentary: No rashes Neurological: Normal speech, Normal tone, Normal affect Lymphatics: No axilla or inguinal lymphadenopathy - Studies Microbiology Data (last 24 hrs): 11/09/18 15:05 Catheterized Urine [place] Count - Final >100,000 CFU/ML. 11/09/18 15:05 Catheterized Urine - Final Escherichia Coli Esbl Medications List Reviewed: Yes Assessment And Plan - Current Problems (Diagnosis) (1) UTI (urinary tract infection) Current Visit: Yes Status: Acute Plan: UA consistent with UTI -urine culture positive for ESBL -On IV Merrem at this time -Will need central line placement and IV abx for 14 days Qualifiers: Urinary tract infection type: acute cystitis Hematuria presence: without hematuria Qualified Code(s): N30.00 - Acute cystitis without hematuria (2) Acute kidney injury Current Visit: Yes Status: Acute Plan: Acute kidney injury most likely secondary to obstructive uropathy -abdominal CT with right-sided hydronephrosis along with 4 mm stone and stent in place -consulted Urology. Pending recommendations -will continue patient on IV fluids here at this time -avoid nephrotoxic agent (3) Abdominal pain Current Visit: No Status: Acute Plan: Left lower quadrant abdominal pain which is now more generalized in nature -most likely secondary to UTI versus pancreatitis -initial abdominal CT negative for any acute abnormality Qualifiers: Abdominal location: left lower quadrant Qualified Code(s): R10.32 - Left lower quadrant pain (4) Pancreatitis Current Visit: No Status: Acute Plan: Clinical pancreatitis with elevated lipase -pain is much better this morning. -now resolved Qualifiers: Chronicity: acute Pancreatitis type: biliary Acute pancreatitis complication: no infection or necrosis Qualified Code(s): K85.10 - Biliary acute pancreatitis without necrosis or infection (5) Coronary artery disease Current Visit: No Status: Chronic Qualifiers: Coronary Disease-Associated Artery/Lesion type: [place] artery Associated angina: without angina (6) Diabetes mellitus Current Visit: No Status: Chronic Qualifiers: Diabetes mellitus type: type 2 Diabetes mellitus chcf insulin use: with intermediate teacher use Diabetes mellitus complication status: without complication Qualified Code(s): E11.9 - Type 2 diabetes mellitus without complications; Z79.4 - adjunct faculty for medical terminology (current) use of insulin (7) Hypertension Current Visit: No Status: Chronic Qualifiers: Hypertension type: essential hypertension - Plan Pending clinical improvement at this time. Will get a central line done at this time for IV antibiotics. Started on meropenem today. Discharge Plan: Home Plan to discharge in: Greater than 2 days - Code Status/Comfort Care Code Status Assessed: Yes Critical Care: No
[2018-11-11] MEDS: ONDANSETRON 4 MG/2 ML VIAL IV PRN (17:04)
--- NOTE | 2018-11-11 19:34 | PN ---
Her urine culture is growing E coli ESBL sensitive to Augmentin, cefoxitin, Levaquin, Timentin, piper acillin and tazobactam, Bactrim, Cipro, meropenem, amikacin. Patient has been meropenem. She is goi ng to have a central line placed tomorrow for long-term IV antibiotics. Plan is to do ureteroscopy, stone extraction, and stent exchange on her on Friday after giving all the general information, alter natives, and risks, and she wishes to proceed. By then we should have several days of IV antibiotics on board. NATE/GUME Voice ID: [id number] Report ID: [id number]
[2018-11-12 00:44] LABS: Urine Appearance TURBID; Urine Bilirubin NEGATIVE (NEG); Urine Blood 3+ (NEG); Urine Color YELLOW; Urine Glucose NEGATIVE (NEG); Urine Protein TRACE (NEG); Urine Specific Gravity 1.015 (1.005-1.030); Urine Urobilinogen 0.2 mg/dL (0.2-1.0)
[2018-11-12 00:45] LABS: Urine Microscopic Reflex ORDER UMIC
[2018-11-12] MEDS ORDERED: HYDRALAZINE HCL 20 MG/ML VIAL IV ONE (01:06)
[2018-11-12] MEDS ORDERED: TAMSULOSIN 0.4 MG SR CAP PO SCH (02:00)
[2018-11-12] MEDS: HYDRALAZINE HCL 25 MG TABLET PO SCH ×3 (02:00→17:13)
[2018-11-12 02:43] LABS: Urine Bacteria 20-50 /HPF (<20)
[2018-11-12 02:44] LABS: Urine Culture Reflex Order REFLEXED; Urine Yeast FEW (NONE SEEN); Urine Yeast with Hyphae PRESENT
[2018-11-12] MEDS: PANTOPRAZOLE 40MG TABLET PO SCH ×3 (05:32→21:58)
[2018-11-12] MEDS: METOPROLOL TAR 50 MG TAB PO SCH ×3 (05:34→21:58)
[2018-11-12 06:17] LABS: Hematocrit 35.7 % (36.0-45.0); MPV 9.1 fL (7.6-11.3); RBC Red Blood Cell Count 3.91 M/uL (3.86-4.86)
[2018-11-12 06:41] LABS: Albumin 2.4 g/dL (3.4-5.0); Bilirubin Total 0.4 mg/dL (0.2-1.0); Phosphorus 2.5 mg/dL (2.5-4.9); Potassium 4.5 mmol/L (3.5-5.1)
[2018-11-12] MEDS ORDERED: LIDOCAINE 2% MPF 5 ML VIAL ONE (06:52)
[2018-11-12] MEDS ORDERED: FENTANYL CITR 100 MCG/2 ML ONE (06:52)
[2018-11-12] MEDS ORDERED: PROPOFOL 200 MG/20 ML VIAL IV ONE ×2 (06:52→08:13)
[2018-11-12] MEDS ORDERED: ONDANSETRON 4 MG/2 ML VIAL ONE (06:54)
[2018-11-12] MEDS: INSULIN -REGULAR HUMAN 50 UNIT/0.5 ML ML SQ SCH ×4 (07:30→21:00)
[2018-11-12] MEDS ORDERED: LIDOCAINE 1% MPF 30 ML VIAL ONE (07:37)
[2018-11-12] MEDS: NA CHLORIDE 0.9% 500 ML ONE ×2 (07:37→07:40)
[2018-11-12] MEDS ORDERED: GLYCOPYRROLATE 0.2 MG/ML SYR ONE (08:01)
[2018-11-12] MEDS ORDERED: NS 0.9% VIAL 10 ML ONE (08:24)
[2018-11-12] MEDS ORDERED: HEPARIN 500 UNIT/5 ML SYR IV ONE ×2 (08:25→08:29)
[2018-11-12] MEDS ORDERED: NA CHLORIDE 0.9% 1,000 ML ONE (08:25)
--- NOTE | 2018-11-12 08:40 | P.BOP ---
Preoperative diagnosis: multidrug resistant UTI Postoperative diagnosis: same Primary procedure: 1. Placement of central line right IJV Secondary procedure: 2. Interpretation of fluoroscopy Other procedure(s): 3. Right neck ultrasound Estimated blood loss: <5cc Findings: as above Anesthesia: General Complications: None Transferred to: Recovery Room Condition: Good
[2018-11-12] MEDS: MORPHINE 4 MG/ML SYR ONE ×2 (08:45→08:58)
[2018-11-12] MEDS: Meropenem 500 MG in NA CHLORIDE 0.9% 100 ML IV SCH ×3 (09:00→21:55)
[2018-11-12] MEDS ORDERED: METOPROLOL TAR 50 MG TAB PO SCH (09:00)
[2018-11-12] MEDS: ATORVASTATIN 10 MG TAB PO SCH (09:41)
[2018-11-12] MEDS: AMLODIPINE 10 MG TAB PO SCH (09:41)
[2018-11-12] MEDS: LOSARTAN POTASSIUM 50 MG TABLET PO SCH (09:41)
[2018-11-12] MEDS: FUROSEMIDE 20 MG TABLET PO SCH ×2 (09:42→21:58)
[2018-11-12] MEDS: TAMSULOSIN 0.4 MG SR CAP PO SCH (09:42)
--- NOTE | 2018-11-12 12:07 | RAD REPORT ---
EXAM DESCRIPTION: RAD - Fluoroscopy <1 Hour - 11/12/2018 11:11 am FINDINGS: There were 2 portable C-arm views submitted from fluoroscopic assisted placement of a righ t jugular central line. No suspicious or unexpected finding. Fluoro time was 0.2 minutes.
--- NOTE | 2018-11-12 12:12 | RAD REPORT ---
EXAM DESCRIPTION: RAD - Chest Single View - 11/12/2018 11:13 am CLINICAL HISTORY: Right jugular central line placement. COMPARISON: None. TECHNIQUE: AP portable chest image was obtained 0901 hour . FINDINGS: No pneumothorax. No significant lung parenchymal process. All lung markings are accentuate d by shallow inspiration. Right jugular central line tip is in the mid SVC. Heart size is normal. No pleural effusion. Verbal findings were provided via telephone to the recovery room nurse. Final report was delayed due to technical malfunction is with the PACs system. IMPRESSION: Right jugular central line has been placed with tip in the mid SVC. No pneumothorax.
--- NOTE | 2018-11-12 13:10 | OP ---
Date of Procedure: 11/12/2018 Surgeon: Gadiel Mckinley MD Reason For Consult: Central line placement. History Of Present Illness: This is a case of a 78-year-old patient, comes to us for a need for cent ral line. Patient has a femoral central line. She has been on IV medications. The primary doctor n nicolds to continue the IV medications. She has to be sent home. PICC line was not possible and a cent ral line was requested. The patient is very nervous. She wants to have it done under anesthesia. S he denies any dysuria, hematuria, hematochezia, or melena. Denies any recent traveling out of the [facility]. Denies any family members sick at home. Denies any chest pain or any shortness of breath. T he patient states she has a central line placed in the past in the neck and she was very nervous and she wants to be sleep. Past Medical History: Atrial fibrillation, cardiac stent, diabetes, gallstones, hypertension, and MO . Allergies: CODEINE AND PROPOXYPHENE. Family History: Noncontributory. Social History: She does not smoke. She does not drink alcohol. Review of Systems: Ten points otherwise is unremarkable. Physical Examination: General: Patient is awake and alert. HEENT: Pupils anicteric. Neck: Supple. Chest: Clear. Bilateral breath sounds. Abdomen: Soft and depressible. Extremities: Good capillary refill. Neuro: Oriented x3. Laboratory Data: WBC count 9.0, hemoglobin of 12. INR is 1.22. Creatinine is 1.37. Assessment: This 78-year-old patient, need for central line. She has a femoral line. She have to b e sent home. PICC lines were attempted, unsuccessful. She will be gasping for central line placemen t. The benefits, alternatives, and risks of central line placement was fully explained to the patien t, which include but are not limited to infection, bleeding, damage to adjacent structures, hemothora x, pneumothorax, pericardial tamponade, pericarditis, endocarditis, DVTs, PE, MO, even . She al so understands this may not relieve the symptoms. She might need more than one surgical intervention . She understands also as soon as the IV medication is finished she should remove her central line. ANEL/GUME Voice ID: [id number] Report ID: [id number]
--- NOTE | 2018-11-12 13:26 | PN ---
Subjective: Ms. Puri had a central line placed today. She is still on her IV meropenem for ESBL. She is scheduled for ureteroscopy, laser, removal of stones tomorrow from the right ureter and possib ly kidney. All the general information, alternatives, and risks were given and she wishes to proceed . NATE/GUME Voice ID: [id number] Report ID: [id number]
--- NOTE | 2018-11-12 14:05 | P.PN ---
Subjective Date of Service: 11/12/18 Patient seen and examined at bedside with RN. Chart reviewed. Case discussed with general surgery. Patient urine cultures positive for multidrug resistant E. coli. S/p central Line placement. pt awaiting urology procedure maddison AM Review of Systems 10-point ROS is otherwise unremarkable Physical Examination - Vital Signs Temperature: 98.4 F Blood Pressure: 132/62 Pulse: 59 Respirations: 18 Pulse Ox (%): 100 - Physical Exam General: Alert, In no apparent distress HEENT: Atraumatic, PERRLA, EOMI Neck: Supple, JVD not distended Respiratory: Clear to auscultation bilaterally, Normal air movement Cardiovascular: Regular rate/rhythm, Normal S1 S2 Gastrointestinal: Normal bowel sounds, No tenderness Musculoskeletal: No tenderness Integumentary: No rashes Neurological: Normal speech, Normal tone, Normal affect Lymphatics: No axilla or inguinal lymphadenopathy - Studies Medications List Reviewed: Yes Assessment And Plan - Current Problems (Diagnosis) (1) UTI (urinary tract infection) Current Visit: Yes Status: Acute Plan: UA consistent with UTI -urine culture positive for ESBL -On IV Merrem at this time -S/p Central Line placement Qualifiers: Urinary tract infection type: acute cystitis Hematuria presence: without hematuria Qualified Code(s): N30.00 - Acute cystitis without hematuria (2) Acute kidney injury Current Visit: Yes Status: Acute Plan: Acute kidney injury most likely secondary to obstructive uropathy -abdominal CT with right-sided hydronephrosis along with 4 mm stone and stent in place -consulted Urology. Scheduled for cystoscopy maddison -will continue patient on IV fluids here at this time -avoid nephrotoxic agent (3) Abdominal pain Current Visit: No Status: Acute Plan: Left lower quadrant abdominal pain which is now more generalized in nature -most likely secondary to UTI versus pancreatitis -initial abdominal CT negative for any acute abnormality Qualifiers: Abdominal location: left lower quadrant Qualified Code(s): R10.32 - Left lower quadrant pain (4) Pancreatitis Current Visit: No Status: Acute Plan: Clinical pancreatitis with elevated lipase -pain is much better this morning. -now resolved Qualifiers: Chronicity: acute Pancreatitis type: biliary Acute pancreatitis complication: no infection or necrosis Qualified Code(s): K85.10 - Biliary acute pancreatitis without necrosis or infection (5) Coronary artery disease Current Visit: No Status: Chronic Qualifiers: Coronary Disease-Associated Artery/Lesion type: [place] artery Associated angina: without angina (6) Diabetes mellitus Current Visit: No Status: Chronic Qualifiers: Diabetes mellitus type: type 2 Diabetes mellitus salvage determiner insulin use: with salvage determiner use Diabetes mellitus complication status: without complication Qualified Code(s): E11.9 - Type 2 diabetes mellitus without complications; Z79.4 - salvage determiner (current) use of insulin (7) Hypertension Current Visit: No Status: Chronic Qualifiers: Hypertension type: essential hypertension - Plan Pending clinical improvement at this time. Discharge Plan: Home Plan to discharge in: Greater than 2 days - Code Status/Comfort Care Code Status Assessed: Yes Critical Care: No
[2018-11-12] MEDS: HYDROCODONE/APAP 10/325 TAB PO PRN (17:13)
[2018-11-12] MEDS: ALPRAZOLAM 0.25 MG TABLET PO PRN (19:39)
[2018-11-13] MEDS: HYDRALAZINE HCL 25 MG TABLET PO SCH ×3 (02:19→18:00)
[2018-11-13] MEDS: HYDROCODONE/APAP 10/325 TAB PO PRN (02:20)
[2018-11-13] MEDS: PANTOPRAZOLE 40MG TABLET PO SCH ×3 (03:58→21:18)
[2018-11-13] MEDS: INSULIN -REGULAR HUMAN 50 UNIT/0.5 ML ML SQ SCH ×4 (07:30→21:00)
[2018-11-13] MEDS: ATORVASTATIN 10 MG TAB PO SCH ×2 (09:00→16:41)
[2018-11-13] MEDS: TAMSULOSIN 0.4 MG SR CAP PO SCH ×2 (09:00→16:40)
[2018-11-13] MEDS: METOPROLOL TAR 50 MG TAB PO SCH ×2 (09:00→21:00)
[2018-11-13] MEDS: AMLODIPINE 10 MG TAB PO SCH (09:00)
[2018-11-13] MEDS: LOSARTAN POTASSIUM 50 MG TABLET PO SCH (09:00)
[2018-11-13] MEDS: FUROSEMIDE 20 MG TABLET PO SCH ×2 (09:00→21:00)
[2018-11-13] MEDS: Meropenem 500 MG in NA CHLORIDE 0.9% 100 ML IV SCH ×2 (09:40→15:53)
[2018-11-13] MEDS ORDERED: NA CHLORIDE 0.9% 1,000 ML ONE ×2 (11:32→22:50)
[2018-11-13] MEDS ORDERED: MIDAZOLAM HCL 2 MG/2 ML INJ ONE (11:46)
[2018-11-13] MEDS ORDERED: PROPOFOL 200 MG/20 ML VIAL IV ONE (11:46)
[2018-11-13] MEDS ORDERED: FENTANYL CITR 100 MCG/2 ML ONE (11:46)
[2018-11-13] MEDS ORDERED: LIDOCAINE 1% MPF 5 ML VIAL ONE (11:46)
[2018-11-13] MEDS ORDERED: NS 0.9% VIAL 10 ML ONE ×2 (12:06→12:09)
[2018-11-13] MEDS ORDERED: EPHEDRINE SULF 50 MG/ML VIAL ONE (12:06)
[2018-11-13] MEDS ORDERED: Phenylephrine HCl 10 MG/ML 1 ML VIAL ONE ×2 (12:09→12:54)
--- NOTE | 2018-11-13 12:47 | P.DS ---
Admission Date: 11/11/18 Discharge Date: 11/13/18 Disposition: ROUTINE DISCHARGE Discharge Condition: GOOD - Problems (1) UTI (urinary tract infection) Current Visit: Yes Status: Acute Qualifiers: Urinary tract infection type: acute cystitis Hematuria presence: without hematuria Qualified Code(s): N30.00 - Acute cystitis without hematuria (2) Acute kidney injury Current Visit: Yes Status: Acute (3) Abdominal pain Current Visit: No Status: Acute Qualifiers: Abdominal location: left lower quadrant Qualified Code(s): R10.32 - Left lower quadrant pain (4) Pancreatitis Current Visit: No Status: Acute Qualifiers: Chronicity: acute Pancreatitis type: biliary Acute pancreatitis complication: no infection or necrosis Qualified Code(s): K85.10 - Biliary acute pancreatitis without necrosis or infection (5) Coronary artery disease Current Visit: No Status: Chronic Qualifiers: Coronary Disease-Associated Artery/Lesion type: [place] artery Associated angina: without angina (6) Diabetes mellitus Current Visit: No Status: Chronic Qualifiers: Diabetes mellitus type: type 2 Diabetes mellitus terminal gauger supervisor insulin use: with senior living use Diabetes mellitus complication status: without complication Qualified Code(s): E11.9 - Type 2 diabetes mellitus without complications; Z79.4 - longterm (current) use of insulin (7) Hypertension Current Visit: No Status: Chronic Qualifiers: Hypertension type: essential hypertension Brief History of Present Illness: This is a 78-year-old with significant past medical history who presents to the ED complaining of having left lower abdominal pain. Patient stated that her left abdominal pain started about 2 days ago and has got progressively worse today it got unbearable and the she decided to come to the ER. Patient states that her pain is now more generalized than before. Patient has had frequent visits here to the hospital for nephrolithiasis with hydronephrosis along with hypoglycemia and chronic pain syndrome as well. Patient was last time transfer to the [facility] for a ERCP due to abnormal CBD and was found to have polyps in the CBD which was removed at that time and then stent was placed as well. Patient still has a right-sided urethral stent in place as well. Patient denies having any nausea vomiting fever chest pain or shortness of breath at this time. Does state however has been having on and off chills. Also denies having any diarrhea or constipation at this time. Patient states that she also has been having increased urination and has not been able to make it to the bathroom on time. In the ER patient was found to have elevated lipase along with abdominal CT finding of right-sided urethral stone of 4 mm and stent and a KI and thus was admitted to the hospital for further care Hospital Course: Overall during the hospital stay patient remained stable Patient was initially admitted to the hospital for nausea vomiting abdominal pain. Had extensive workup done here in the hospital. Had urine culture and blood culture done here in the hospital. Was found to have urinary tract infection with multidrug resistant E. coli. PICC line was done however PICC line was unsuccessful and this patient had a central line placement here for long-term IV antibiotics. While here in the hospital patient was also found to have right-sided nephrolithiasis with hydronephrosis. Urology was consulted who recommended a stent placement with cystoscopy was was done here in the hospital before discharge. Patient did well overall and thus was discharged home under stable condition to be continued on long-term IV antibiotics, IV meropenem correct q.8 hr for total 14 days. Patient demonstrate understanding and thus was discharged home under stable condition once everything was set up for her at the house. Vital Signs/Physical Exam: Temp Pulse Resp BP Pulse Ox 97.5 F 80 18 104/55 L 94 11/13/18 08:00 11/13/18 09:00 11/13/18 08:00 11/13/18 09:00 11/13/18 08:00 General: Alert, In no apparent distress HEENT: Atraumatic, PERRLA, EOMI Neck: Supple, JVD not distended Respiratory: Clear to auscultation bilaterally, Normal air movement Cardiovascular: Regular rate/rhythm, Normal S1 S2 Gastrointestinal: Normal bowel sounds, No tenderness Musculoskeletal: No tenderness Integumentary: No rashes Neurological: Normal speech, Normal tone, Normal affect Lymphatics: No axilla or inguinal lymphadenopathy Laboratory Data at Discharge: WBC 9.0 K/uL (4.3-10.9) 11/12/18 05:21 Hgb 12.0 g/dL (12.0-15.0) 11/12/18 05:21 Hct 35.7 % (36.0-45.0) L 11/12/18 05:21 Plt Count 213 K/uL (152-406) 11/12/18 05:21 PT 14.3 SECONDS (9.5-12.5) H 11/09/18 14:33 INR 1.22 11/09/18 14:33 Sodium 137 mmol/L (136-145) 11/12/18 05:21 Potassium 4.5 mmol/L (3.5-5.1) 11/12/18 05:21 BUN 14 mg/dL (7-18) 11/12/18 05:21 Creatinine 1.37 mg/dL (0.55-1.3) H 11/12/18 05:21 Glucose 146 mg/dL (74-106) H 11/12/18 05:21 Phosphorus 2.5 mg/dL (2.5-4.9) 11/12/18 05:21 Magnesium 2.2 mg/dL (1.8-2.4) 11/09/18 14:33 Total Bilirubin 0.4 mg/dL (0.2-1.0) 11/12/18 05:21 AST 16 U/L (15-37) 11/12/18 05:21 ALT 17 U/L (12-78) 11/12/18 05:21 Alkaline Phosphatase 94 U/L (45-117) 11/12/18 05:21 Lipase 225 U/L (73-393) 11/10/18 05:24 Home Medications: Aspirin 1 tab PO DAILY 10/03/18 Atorvastatin Calcium 10 mg PO DAILY 10/03/18 Cetirizine HCl [Zyrtec] 10 mg PO BID 10/03/18 Furosemide 20 mg PO BID 10/03/18 Metoprolol Tartrate 25 mg PO BID 10/03/18 Omeprazole [Prilosec] 40 mg PO BID 10/03/18 ALPRAZolam [Xanax*] 0.25 mg PO BID PRN #15 tab 10/07/18 Amlodipine Besylate 1 tab PO DAILY 11/10/18 Codeine/APAP [Tylenol #3*] 1 tab PO 6XD 11/10/18 Hydralazine [Apresoline*] 100 mg PO Q8H 11/10/18 Losartan Potassium 25 mg PO DAILY 11/10/18 Tamsulosin [Flomax*] 1 cap PO SEECOM 11/10/18 Zolpidem Tartrate 1 tab PO BEDTIME 11/10/18 glipiZIDE [Glipizide] 1 tab PO BID 11/10/18 Meropenem [Merrem] 1 gm IV Q8HR #42 vial 11/13/18 New Medications: Meropenem [Merrem] 1 gm IV Q8HR #42 vial Diet: Regular Activity: Ad christina Followup: Cherie Ortiz MD [ACTIVE - CAN ADMIT] - 1 Week
[2018-11-13] MEDS ORDERED: NA CHLORIDE 0.9% 100 ML IV ONE (12:53)
[2018-11-13] MEDS ORDERED: KETOROLAC 30 MG/ML INJ ONE (13:17)
[2018-11-13] MEDS ORDERED: ONDANSETRON 4 MG/2 ML VIAL ONE (13:18)
--- NOTE | 2018-11-13 14:48 | RAD REPORT ---
EXAM DESCRIPTION: RAD - Urography Retrograde - 11/13/2018 2:42 pm CLINICAL HISTORY: ICD N 20.0 FINDINGS: Twenty-five spot images obtained. Fluoroscopy time 2.2 minutes Right ureter was cannulated and contrast administered. Subsequently a right ureteral stent was placed . Examination was performed by
[2018-11-13] MEDS ORDERED: NA CHLORIDE 0.9% 1,000 ML IV ONE (19:29)
[2018-11-13 19:57] LABS: Absolute Lymphocytes (CBC) 0.1 K/uL (0.7-4.9); Basophils % 0.1 % (0-1.3); Hematocrit 36.7 % (36.0-45.0); Lymphocytes % 0.7 % (15.3-44.8); MPV 8.3 fL (7.6-11.3); RBC Red Blood Cell Count 3.93 M/uL (3.86-4.86)
[2018-11-13 20:12] LABS: ALT/SGPT 13 U/L (12-78); AST/SGOT 17 U/L (15-37); Albumin 2.3 g/dL (3.4-5.0); Alkaline Phosphatase 84 U/L (45-117); BUN Blood Urea Nitrogen 20 mg/dL (7-18); Bicarbonate 21 mmol/L (21-32); Bilirubin Total 0.3 mg/dL (0.2-1.0); Glucose Level 138 mg/dL (74-106); Potassium 3.6 mmol/L (3.5-5.1); Protein, Total 6.3 g/dL (6.4-8.2); Sodium Level 140 mmol/L (136-145); Troponin I < 0.02 ng/mL (0.0-0.045)
--- NOTE | 2018-11-13 20:25 | RAD REPORT ---
EXAM DESCRIPTION: RAD - Chest Single View - 11/13/2018 8:16 pm CLINICAL HISTORY: Pneumonia COMPARISON: November 12 TECHNIQUE: AP portable chest image was obtained 2014 hours . FINDINGS: No acute lung parenchymal process since comparison study. Lung crow are better aerated. Right jugular central line has not changed. Heart and vasculature are normal. No measurable pleural e ffusion and no pneumothorax. No acute bony abnormality seen. No acute aortic findings suspected. IMPRESSION: No acute cardiopulmonary process.
[2018-11-13] MEDS ORDERED: NA CHLORIDE 0.9% 500 ML IV ONE ×2 (20:46→22:47)
[2018-11-13 21:31] LABS: Amylase Level 43 U/L (25-115); Lipase 118 U/L (73-393)
[2018-11-13 21:35] LABS: Blood Morphology Comment NOT SEEN (NOT SEEN); Platelet Estimate ADEQ
[2018-11-13] MEDS: NA CHLORIDE 0.9% 1,000 ML IV SCH (22:54)
[2018-11-13] MEDS: ALPRAZOLAM 0.25 MG TABLET PO PRN (22:57)
[2018-11-14 05:21] LABS: Absolute Lymphocytes (CBC) 0.5 K/uL (0.7-4.9); Basophils % 0.3 % (0-1.3); Hematocrit 27.7 % (36.0-45.0); Lymphocytes % 2.6 % (15.3-44.8); MPV 8.8 fL (7.6-11.3); RBC Red Blood Cell Count 3.03 M/uL (3.86-4.86)
[2018-11-14] MEDS: PANTOPRAZOLE 40MG TABLET PO SCH ×3 (05:25→20:11)
[2018-11-14 05:36] LABS: Magnesium 1.5 mg/dL (1.8-2.4); Potassium 4.2 mmol/L (3.5-5.1)
[2018-11-14] MEDS ORDERED: Magnesium Sulfate 2gm IVPB 2 G/50 ML BAG IV ONE (05:54)
[2018-11-14] MEDS: NA CHLORIDE 0.9% 1,000 ML IV SCH ×2 (06:10→20:16)
[2018-11-14] MEDS: HYDROCODONE/APAP 10/325 TAB PO PRN (07:12)
[2018-11-14] MEDS: INSULIN -REGULAR HUMAN 50 UNIT/0.5 ML ML SQ SCH ×4 (07:30→20:13)
[2018-11-14 07:32] LABS: Phosphorus 2.6 mg/dL (2.5-4.9)
[2018-11-14] MEDS: Meropenem 500 MG in NA CHLORIDE 0.9% 100 ML IV SCH ×2 (09:46→20:10)
[2018-11-14] MEDS: TAMSULOSIN 0.4 MG SR CAP PO SCH (09:46)
[2018-11-14] MEDS: ALPRAZOLAM 0.25 MG TABLET PO PRN (09:47)
[2018-11-14] MEDS: ATORVASTATIN 10 MG TAB PO SCH (09:48)
[2018-11-14 11:01] LABS: Absolute Lymphocytes (CBC) 0.4 K/uL (0.7-4.9); Basophils % 0.3 % (0-1.3); Hematocrit 28.9 % (36.0-45.0); Lymphocytes % 2.1 % (15.3-44.8); MPV 8.3 fL (7.6-11.3); RBC Red Blood Cell Count 3.15 M/uL (3.86-4.86)
[2018-11-14 11:16] LABS: Magnesium 2.4 mg/dL (1.8-2.4); Phosphorus 2.3 mg/dL (2.5-4.9); Potassium 4.1 mmol/L (3.5-5.1)
[2018-11-14 12:04] LABS: Blood Morphology Comment NOT SEEN (NOT SEEN); Platelet Estimate ADEQ; Urine White Blood Cell Casts OK
--- NOTE | 2018-11-14 12:44 | P.PN ---
Subjective Date of Service: 11/14/18 Patient seen and examined at bedside with RN. Chart reviewed. Case discussed with general surgery. Patient urine cultures positive for multidrug resistant E. coli. S/P stent Placement for 4mm Stone at this time. Pt was to be discharged home yesterday, However DC was held as patient was Hypotensive after the Procedure. This AM pt is doing well overall. No C/O offer Review of Systems 10-point ROS is otherwise unremarkable Physical Examination - Vital Signs Temperature: 98.5 F Blood Pressure: 100/45 Pulse: 82 Respirations: 19 Pulse Ox (%): 98 - Physical Exam General: Alert, In no apparent distress HEENT: Atraumatic, PERRLA, EOMI Neck: Supple, JVD not distended Respiratory: Clear to auscultation bilaterally, Normal air movement Cardiovascular: Regular rate/rhythm, Normal S1 S2 Gastrointestinal: Normal bowel sounds, No tenderness Musculoskeletal: No tenderness Integumentary: No rashes Neurological: Normal speech, Normal tone, Normal affect Lymphatics: No axilla or inguinal lymphadenopathy - Studies Medications List Reviewed: Yes Assessment And Plan - Current Problems (Diagnosis) (1) Hypotension Current Visit: Yes Status: Acute Plan: Pt with Hypotension most likely 2.2 to BP meds and Anesthesia -Pt with Recent procedure done with can cause Reactive Leukocytosis and elevated LA -Will stop BP meds at this time -Currently S/p 2L Fluids -MAP is in acceptable Ranges, Also BP cuff needs to be placed at the right place to ensure correct BP is being Recorded. -Repeat Culture pending at this time -Doubt Sepsis given Pt is on IV abx already Qualifiers: Hypotension type: hypotension due to drug Qualified Code(s): I95.2 - Hypotension due to drugs (2) UTI (urinary tract infection) Current Visit: Yes Status: Acute Plan: UA consistent with UTI -urine culture positive for ESBL -On IV Merrem 05/31 -Central Line placed at this time for termite control representative IV abx -Home infusion setup already. Medication will be delivered today per CM Qualifiers: Urinary tract infection type: acute cystitis Hematuria presence: without hematuria Qualified Code(s): N30.00 - Acute cystitis without hematuria (3) Nephrolithiasis Current Visit: No Status: Acute Plan: Nephrolithiasis with obstructive uropathy -abdominal CT with right-sided hydronephrosis along with 4 mm stone -consulted Urology. -S/P cystoscopy with Stent Placement again. POD# 1 (4) Acute kidney injury Current Visit: Yes Status: Acute Plan: Acute kidney injury most likely secondary to obstructive uropathy -abdominal CT with right-sided hydronephrosis along with 4 mm stone -consulted Urology. -S/P cystoscopy with Stent Placement again. POD# 1 -On IV fluids will continue (5) Abdominal pain Current Visit: No Status: Acute Plan: Generalized Abdominal Pain. -most likely secondary to UTI -initial abdominal CT negative for any acute abnormality -Now resolved Qualifiers: Abdominal location: left lower quadrant Qualified Code(s): R10.32 - Left lower quadrant pain (6) Pancreatitis Current Visit: No Status: Resolved Plan: Clinical pancreatitis with elevated lipase. Now Resolved Qualifiers: Chronicity: acute Pancreatitis type: biliary Acute pancreatitis complication: no infection or necrosis Qualified Code(s): K85.10 - Biliary acute pancreatitis without necrosis or infection (7) Coronary artery disease Current Visit: No Status: Chronic Qualifiers: Coronary Disease-Associated Artery/Lesion type: [place] artery Associated angina: without angina (8) Diabetes mellitus Current Visit: No Status: Chronic Qualifiers: Diabetes mellitus type: type 2 Diabetes mellitus intermediate insulin use: with intermediate use Diabetes mellitus complication status: without complication Qualified Code(s): E11.9 - Type 2 diabetes mellitus without complications; Z79.4 - senior living (current) use of insulin (9) Hypertension Current Visit: No Status: Chronic Qualifiers: Hypertension type: essential hypertension - Plan Pending clinical improvement at this time. Discharge Plan: Home Plan to discharge in: 48 Hours - Code Status/Comfort Care Code Status Assessed: Yes Critical Care: No
--- NOTE | 2018-11-14 15:36 | EKG ---
Test Date: 2018-11-13 Test Time: 20:09:16 Sprayer Machine: RT-O MEASUREMENT RESULTS: Intervals: Rate: 101 IN: 152 QRSD: 70 QT: 354 QTc: 459 [place]: P: 11 IN: 152 QRS: 5 T: 116 INTERPRETIVE STATEMENTS: Sinus tachycardia Cannot rule out Anterior infarct, age undetermined ST & T wave abnormality, consider lateral ischemia Abnormal ECG Compared to ECG 11/09/2018 14:10:56 Myocardial infarct finding now present Sinus rhythm no longer present ST (T wave) deviation still present Possible ischemia still present Electronically Signed On 11-14-18 15:35:29 CDT by Jese Stewart
--- NOTE | 2018-11-14 18:27 | RAD REPORT ---
EXAM DESCRIPTION: CT - Head Brain Wo Cont - 11/14/2018 6:10 pm CLINICAL HISTORY: Alteration of awareness/confusion COMPARISON: None TECHNIQUE: Computed axial tomography of the head was obtained. IV contrast was not requested. All CT scans are performed using dose optimization technique as appropriate and may include automated exposure control or mA/KV adjustment according to patient size. FINDINGS: An intracranial bleed is not seen . The ventricles are normal in caliber. No extra-axial fluid collection is noted. Small amount of fluid is present within the sphenoid sinus which could indicate acute sinusitis IMPRESSION: No acute intracranial abnormality is seen. If patient's symptoms persist MRI of the bra in would be recommended.
[2018-11-14] MEDS: TRAMADOL HCL 50 MG TAB PO PRN (20:56)
[2018-11-15] MEDS: TRAMADOL HCL 50 MG TAB PO PRN (05:08)
[2018-11-15] MEDS: METOPROLOL TAR 25 MG TAB PO SCH ×2 (05:08→17:28)
[2018-11-15 05:27] LABS: Absolute Lymphocytes (CBC) 0.4 K/uL (0.7-4.9); Basophils % 0.5 % (0-1.3); Hematocrit 29.9 % (36.0-45.0); Lymphocytes % 3.7 % (15.3-44.8); MPV 8.4 fL (7.6-11.3)
[2018-11-15 05:49] LABS: BUN Blood Urea Nitrogen 15 mg/dL (7-18); Bicarbonate 24 mmol/L (21-32); Glucose Level 108 mg/dL (74-106); Magnesium 2.1 mg/dL (1.8-2.4); Potassium 4.6 mmol/L (3.5-5.1); Sodium Level 138 mmol/L (136-145); Troponin I < 0.02 ng/mL (0.0-0.045)
[2018-11-15] MEDS: INSULIN -REGULAR HUMAN 50 UNIT/0.5 ML ML SQ SCH ×4 (07:30→20:31)
[2018-11-15] MEDS: ATORVASTATIN 10 MG TAB PO SCH (08:08)
[2018-11-15] MEDS: Meropenem 500 MG in NA CHLORIDE 0.9% 100 ML IV SCH ×2 (08:09→19:57)
[2018-11-15] MEDS: TAMSULOSIN 0.4 MG SR CAP PO SCH (08:09)
[2018-11-15] MEDS: PANTOPRAZOLE 40MG TABLET PO SCH ×2 (08:24→19:56)
[2018-11-15] MEDS: NA CHLORIDE 0.9% 1,000 ML IV SCH (09:00)
--- NOTE | 2018-11-15 12:52 | P.PN ---
Subjective Date of Service: 11/15/18 Patient seen and examined at bedside with RN. Chart reviewed. Case discussed with general surgery. Patient urine cultures positive for multidrug resistant E. coli. S/P stent Placement for 4mm Stone at this time. Pt was to be discharged home , However DC was held as patient was Hypotensive after the Procedure. Also family now wants to take Patient to SNF. Review of Systems 10-point ROS is otherwise unremarkable Physical Examination - Vital Signs Temperature: 97.7 F Blood Pressure: 147/67 Pulse: 65 Respirations: 16 Pulse Ox (%): 97 - Physical Exam General: In no apparent distress, Confused HEENT: Atraumatic, PERRLA, EOMI Neck: Supple, JVD not distended Respiratory: Clear to auscultation bilaterally, Normal air movement Cardiovascular: Regular rate/rhythm, Normal S1 S2 Gastrointestinal: Normal bowel sounds, No tenderness Musculoskeletal: No tenderness Integumentary: No rashes Neurological: Normal tone, Normal affect, Abnormal speech Lymphatics: No axilla or inguinal lymphadenopathy - Studies Medications List Reviewed: Yes Assessment And Plan - Current Problems (Diagnosis) (1) Hypotension Current Visit: Yes Status: Acute Plan: Pt with Hypotension most likely 2.2 to BP meds and Anesthesia. Now Normotensive -Pt with recent procedure done which can cause Reactive Leukocytosis and elevated LA -Will Hold BP meds at this time -BP cuff needs to be placed at the right place to ensure correct BP is being Recorded. -Repeat Culture pending at this time -Doubt Sepsis given Pt is on IV abx already Qualifiers: Hypotension type: hypotension due to drug Qualified Code(s): I95.2 - Hypotension due to drugs (2) UTI (urinary tract infection) Current Visit: Yes Status: Acute Plan: UA consistent with UTI -urine culture positive for ESBL -On IV Merrem / -Central Line placed at this time for deck officer IV abx -Will need to setup SNF for IV abx Qualifiers: Urinary tract infection type: acute cystitis Hematuria presence: without hematuria Qualified Code(s): N30.00 - Acute cystitis without hematuria (3) Nephrolithiasis Current Visit: No Status: Acute Plan: Nephrolithiasis with obstructive uropathy -abdominal CT with right-sided hydronephrosis along with 4 mm stone -consulted Urology. Appreciated Reccs -S/P cystoscopy with Stent Placement again. POD# 2 (4) Acute kidney injury Current Visit: Yes Status: Acute Plan: Acute kidney injury most likely secondary to obstructive uropathy -BUN/CR improved now. -S/P cystoscopy with Stent Placement again. POD# 2 (5) Abdominal pain Current Visit: No Status: Acute Plan: Generalized Abdominal Pain. -most likely secondary to UTI -initial abdominal CT negative for any acute abnormality -Now resolved Qualifiers: Abdominal location: left lower quadrant Qualified Code(s): R10.32 - Left lower quadrant pain (6) Pancreatitis Current Visit: No Status: Resolved Plan: Clinical pancreatitis with elevated lipase. Now Resolved Qualifiers: Chronicity: acute Pancreatitis type: biliary Acute pancreatitis complication: no infection or necrosis Qualified Code(s): K85.10 - Biliary acute pancreatitis without necrosis or infection (7) Coronary artery disease Current Visit: No Status: Chronic Qualifiers: Coronary Disease-Associated Artery/Lesion type: [place] artery Associated angina: without angina (8) Diabetes mellitus Current Visit: No Status: Chronic Qualifiers: Diabetes mellitus type: type 2 Diabetes mellitus fci insulin use: with fci use Diabetes mellitus complication status: without complication Qualified Code(s): E11.9 - Type 2 diabetes mellitus without complications; Z79.4 - half-way (current) use of insulin (9) Hypertension Current Visit: No Status: Chronic Qualifiers: Hypertension type: essential hypertension - Plan Will need SNF placement at this time. Discharge Plan: Home Plan to discharge in: 48 Hours - Code Status/Comfort Care Code Status Assessed: Yes Critical Care: No
[2018-11-16] MEDS: NA CHLORIDE 0.9% 1,000 ML IV SCH ×2 (04:56→18:34)
[2018-11-16] MEDS: METOPROLOL TAR 25 MG TAB PO SCH ×2 (05:24→17:06)
[2018-11-16] MEDS: INSULIN -REGULAR HUMAN 50 UNIT/0.5 ML ML SQ SCH ×4 (07:30→21:00)
[2018-11-16] MEDS: Meropenem 500 MG in NA CHLORIDE 0.9% 100 ML IV SCH (08:07)
[2018-11-16] MEDS: TAMSULOSIN 0.4 MG SR CAP PO SCH (08:08)
[2018-11-16] MEDS: PANTOPRAZOLE 40MG TABLET PO SCH ×2 (08:08→21:10)
[2018-11-16] MEDS: ATORVASTATIN 10 MG TAB PO SCH (08:08)
[2018-11-16] MEDS: TRAMADOL HCL 50 MG TAB PO PRN (18:33)
--- NOTE | 2018-11-16 20:12 | PN ---
Date of Progress Note: 11/16/2018 Subjective: Patient seen and examined. Chart reviewed and case discussed with RN. No significant c omplaints. Medications: List reviewed. Code Status: Full. Physical Examination: Vital Signs: Temperature 98.9, heart rate 56, blood pressure 139/67, respirations 16, O2 94% on room air. General: Awake, alert, oriented x3. Elderly female, does appear to be in some mild distress. CV: S1 and S2. Regular rate and rhythm. Peripheral pulses present. Respiratory: Moving air well bilaterally. No wheezing or stridor. No use of accessory muscles. Gastrointestinal: Abdomen is soft, nontender, nondistended. Positive bowel sounds. Extremities: No clubbing, cyanosis, or edema. Neurologic: Nonfocal. Laboratory Data: Sodium 138, potassium 4.6, chloride 110, CO2 24, BUN 15, creatinine 1.06, glucose 1 08, lactate 0.7, calcium 9, magnesium 2.1. Troponin less than 0.02. Blood cultures; no growth to da te. Urine culture growing out ESBL E coli. Assessment And Plan: 1.Acute cystitis with hematuria secondary to extended-spectrum beta-lactamases escherichia coli. We will continue with meropenem. Patient on day 6 of 14 of meropenem, central line in place. We will repeat CBC in a.m. WBC count from yesterday is trending down. 2.Acute hypotension secondary to anesthesia and blood pressure medications. Blood pressure now norm alized. No signs of sepsis. 3.Nephrolithiasis with obstructive uropathy with 4 mm stone in the right side with hydronephrosis. The patient is status post cystoscopy and stent placement, postoperative day #3. 4.Acute kidney injury secondary to obstructive uropathy. Creatinine now normalized. We will contin ue to monitor. 5.Acute generalized abdominal pain likely related to urinary tract infection. CT scan is negative, resolved. 6.Acute pancreatitis, resolved. No infection or necrosis. 7.Coronary artery disease, [place] artery and [place] heart without angina stable. 8.Diabetes mellitus type 2 with long-term use of insulin with hyperglycemia. We will continue slidi ng scale insulin and monitor blood glucose levels. 9.Essential hypertension, stable. Plan; family wanting prison facility placement. Patient does not have any benefits. We sade l discuss with family regarding LTAC. Patient has limited options due to central line being in place . /GUME Voice ID: [id number] Report ID: [id number]
[2018-11-16] MEDS: Meropenem 1,000 MG in NA CHLORIDE 0.9% 100 ML IV SCH (21:10)
[2018-11-17] MEDS: ACETAMINOPHEN 500 MG TAB PO PRN ×2 (00:05→23:11)
[2018-11-17] MEDS: NA CHLORIDE 0.9% 1,000 ML IV SCH ×2 (01:00→15:36)
[2018-11-17] MEDS: METOPROLOL TAR 25 MG TAB PO SCH ×2 (05:17→17:26)
[2018-11-17 05:37] LABS: Absolute Lymphocytes (CBC) 1.1 K/uL (0.7-4.9); Basophils % 0.8 % (0-1.3); Hematocrit 28.6 % (36.0-45.0); Lymphocytes % 15.5 % (15.3-44.8); MPV 8.8 fL (7.6-11.3); RBC Red Blood Cell Count 3.21 M/uL (3.86-4.86)
[2018-11-17 05:41] LABS: Albumin 1.6 g/dL (3.4-5.0); Bilirubin Total 0.3 mg/dL (0.2-1.0); Phosphorus 1.8 mg/dL (2.5-4.9); Potassium 4.2 mmol/L (3.5-5.1)
[2018-11-17] MEDS: POTASS/SODIUM PHOSPHATE 1 PKT POWD.PACK PO SCH ×3 (06:53→09:35)
[2018-11-17] MEDS: INSULIN -REGULAR HUMAN 50 UNIT/0.5 ML ML SQ SCH ×4 (07:30→20:23)
[2018-11-17] MEDS: Meropenem 1,000 MG in NA CHLORIDE 0.9% 100 ML IV SCH ×2 (08:03→20:23)
[2018-11-17] MEDS: PANTOPRAZOLE 40MG TABLET PO SCH ×2 (08:04→20:23)
[2018-11-17] MEDS: ATORVASTATIN 10 MG TAB PO SCH (08:04)
[2018-11-17] MEDS: TAMSULOSIN 0.4 MG SR CAP PO SCH (08:04)
[2018-11-17] MEDS ORDERED: FLUCONAZOLE 100 MG TAB PO ONE (11:00)
[2018-11-17] MEDS: TRAMADOL HCL 50 MG TAB PO PRN ×2 (14:52→20:25)
--- NOTE | 2018-11-17 16:04 | CON ---
History Of Present Illness: This is a 78-year-old female I was consulted for bacteremia and urinary tract infection. Patient has ESBL growing in her urine and fungus. Also, has fungemia and bacteremi a. Sensitivity and specificity pending. Patient denies any headache, nausea, vomiting, chest pain, abdominal pain, constipation, diarrhea. She was admitted initially on November 09 to the emergency room with left lower abdominal discomfort of 2 days. Patient decided to come to the emergency room f or further workup, was found to have bacteremia and fungemia and also bladder infection. Patient is currently being treated with antibiotic and antifungal. Past Medical History: Hypertension, non-insulin diabetes mellitus, pancreatitis, hyperlipidemia, chr onic pain, arthritis, neuropathy, coronary artery disease, CT, stent placement 3 years ago, recurrent falls, atrial fibrillation, hysterectomy, bladder suspension, cholecystectomy, cardiac stent, ERCP, lithotripsy, cystoscopy. Social History: Nonsmoker, nondrinker. Lives with her . Family History: Heart disease. Medications: Fluconazole, meropenem. See [facility] for other medication. Allergies: CODEINE, PROPOXYPHENE. Review of Systems: A 10-point review was performed. Physical Examination: General: This is a 78-year-old female, lying in bed, not in any acute cardiopulmonary distress. Vital Signs: Temperature 97.6, pulse 59, respirations 18, blood pressure 157/60. HEENT: Unremarkable. Neck: Supple. Lungs: Basal crackles. Heart: S1, S2. Regular. Abdomen: Soft, nontender. Bowel sounds present. Extremities: Trace edema. Laboratory Data: WBC 6.9, down from 11.8; hemoglobin 9.8; platelets 135. Chemistry shows sodium 139 , potassium 4.2, chloride 108, bicarb 26, BUN 11, creatinine 0.7, glucose is 80. Microdata: E coli ESBL in urine, and fungus in the urine. Also, has fungemia. On the [facility], patient is also growing bacteria in her blood. Chest x-ray done earlier shows no acute infiltrate on 11/09 and then on 11/12, patient's chest x-ray showed right jugular line in place. A C T abdomen done on 11/09 shows that patient has right ureteral stent with mild right hydronephrosis, o therwise unremarkable. Assessment And Plan: 78-year-old female with multiple medical problems, coming in with bacteremia an d fungemia. Also, has urinary tract infection secondary to extended spectrum beta-lactamase and yeas t. Continue Diflucan and meropenem possibly 3-4 weeks. We will follow patient closely. Thank you Dr. Benton for consult. Consider transferring the patient to long-term acute care. NF/MODL Voice ID: [id number] Report ID: [id number]
--- NOTE | 2018-11-17 20:49 | PN ---
Date of Progress Note: 11/17/2018 Subjective: Patient is seen and examined. Chart reviewed and case discussed with RN and Dr. Go. Patient denies any specific complaints. No acute events overnight. Medications: List reviewed. Physical Examination: Vital Signs: Temperature 97.3, heart rate 52, blood pressure 135/67, respirations 18, O2 96% on room air. General: Awake, alert, and oriented x3. Elderly female, obese, in some mild distress, ill-appearing . CV: S1 and S2. Regular rate and rhythm. Peripheral pulses present. Respiratory: Moving air well bilaterally. No wheezing or stridor. Gastrointestinal: Abdomen is soft, nontender, nondistended. Positive bowel sounds. No guarding or rigidity. Extremities: No clubbing, cyanosis, or edema. Neurologic: Nonfocal. Laboratory Data: Sodium 139, potassium 4.2, chloride 108, CO2 26, BUN 11, creatinine 0.73, glucose 8 0, calcium 9, phosphorus 1.8, AST 43, ALT 25, albumin 1.6. WBC 6.9, H and H of 9.8 and 28.6, platele ts 135, neutrophils 65%. Urine culture growing out E coli, ESBL producing. Blood cultures growing o ut yeast. Assessment And Plan: A 78-year-old female with: 1.Acute cystitis with hematuria secondary to extended spectrum beta-lactamase Escherichia coli. We will continue with meropenem, renally dosed, day 7. WBC now normalized. 2.Fungemia secondary to yeast. Microbiology lab contacted. Requested send out for sensitivities. We will start on Diflucan IV. Patient was given loading dose p.o., however. Discussed case with Dr. Go. He recommends switching to IV. 3.Acute hypotension, improved. No signs of sepsis at this time. 4.Nephrolithiasis with obstructive uropathy with 4 mm stone in the right side with hydronephrosis, s tatus post cystoscopy and stent placement, postoperative day #4. Appreciate Urology input, stable. 5.Acute kidney injury secondary to obstructive uropathy. Creatinine normalized. We will continue t o monitor. Avoid NSAIDs. 6.Acute generalized abdominal pain secondary to urinary tract infection. CT scan negative, resolved . 7.Acute pancreatitis, resolved. No infection or necrosis. 8.Coronary artery disease, [place] artery and [place] heart without angina, stable. 9.Diabetes mellitus type 2 with long-term use of insulin with hyperglycemia. Continue sliding scale insulin and monitor blood glucose levels, well-controlled. 10.Essential hypertension, stable. Plan: Patient is willing to go to LTAC. However, as patient now needs 2 different agents including antifungal and antibacterial, ID recommends 2-4 weeks of treatment. Patient will complete 1 week of treatment with Merrem today, was started on Diflucan today day 1. We will need to monitor kidney fun ction and liver function while on these antimicrobial agents. We will continue to monitor for any si gns of worsening including sepsis or disseminated fungal infection. Discharge in next 24-48 hours de pending on clinical improvement. /GUME Voice ID: [id number] Report ID: [id number]
[2018-11-18] MEDS: TRAMADOL HCL 50 MG TAB PO PRN ×2 (02:41→18:02)
[2018-11-18 04:18] LABS: Absolute Lymphocytes (CBC) 1.4 K/uL (0.7-4.9); Basophils % 0.9 % (0-1.3); Hematocrit 29.1 % (36.0-45.0); Lymphocytes % 22.2 % (15.3-44.8); MPV 8.6 fL (7.6-11.3); RBC Red Blood Cell Count 3.25 M/uL (3.86-4.86)
[2018-11-18 04:43] LABS: Albumin 1.7 g/dL (3.4-5.0); Bilirubin Total 0.3 mg/dL (0.2-1.0); Phosphorus 2.2 mg/dL (2.5-4.9); Potassium 3.9 mmol/L (3.5-5.1); Protein, Total 5.5 g/dL (6.4-8.2)
[2018-11-18] MEDS ORDERED: POTASSIUM CL SA 10 MEQ TAB PO ONE (04:57)
[2018-11-18] MEDS: POTASS/SODIUM PHOSPHATE 1 PKT POWD.PACK PO SCH ×3 (05:46→09:29)
[2018-11-18] MEDS: METOPROLOL TAR 25 MG TAB PO SCH ×3 (05:49→16:48)
[2018-11-18] MEDS: INSULIN -REGULAR HUMAN 50 UNIT/0.5 ML ML SQ SCH ×4 (07:30→20:29)
--- NOTE | 2018-11-18 08:37 | PN ---
Subjective: Patient is doing well. She is doing great. Objective: Vital Signs: 97.0, 53, 18, 150/70, 94% sat. Patient had ureteroscopy laser done 5 days ago. Had some postoperative sepsis, went to ICU, now stab ilized. She had ESBL. She is on IV meropenem. Plan: Plan is to remove her stent around postop day 7 from the ureteroscopy, so she needs about 2 or 3 more days and the stent can be removed. We will continue IV meropenem past that point and hopeful ly that will clear up her upper urinary tract infections. NATE/GUME Voice ID: [id number] Report ID: [id number]
[2018-11-18] MEDS: Meropenem 1,000 MG in NA CHLORIDE 0.9% 100 ML IV SCH ×2 (08:46→20:27)
[2018-11-18] MEDS: ATORVASTATIN 10 MG TAB PO SCH (08:48)
[2018-11-18] MEDS: TAMSULOSIN 0.4 MG SR CAP PO SCH (08:48)
[2018-11-18] MEDS: FLUCONAZOLE 400 MG IVPB 400 MG/200 ML BAG IV SCH (08:48)
[2018-11-18] MEDS: PANTOPRAZOLE 40MG TABLET PO SCH ×2 (08:49→20:26)
[2018-11-18] MEDS ORDERED: FLUCONAZOLE 100 MG TAB PO SCH (09:00)
[2018-11-18] MEDS: ONDANSETRON 4 MG/2 ML VIAL IV PRN (09:20)
--- NOTE | 2018-11-18 11:14 | RAD REPORT ---
EXAM DESCRIPTION: CT - Abdomen Pelvis Wo Contrast - 11/18/2018 9:08 am CLINICAL HISTORY: Abdominal pain COMPARISON: October 18, 2018 TECHNIQUE: Computed axial tomography of the abdomen and pelvis was obtained. IV and oral contrast we re not requested. All CT scans are performed using dose optimization technique as appropriate and may include automated exposure control or mA/KV adjustment according to patient size. FINDINGS: The evaluation of solid organs, vessels and bowel is limited secondary to the lack of con trast administration. Several right renal calculi are present. A right ureteral stent is in place. No calculi are seen with in the right ureter. No calculi within the bladder. Mild right hydronephrosis without significant raad nge from prior exam. Left kidney unremarkable Chronic pneumobilia. Small bilateral pleural effusions Spleen, pancreas and adrenals appear grossly normal. No evidence of diverticulitis Ventral hernia master with chronic fluid collection again demonstrated IMPRESSION: Approximately 5 calculi within the lower pole of the right kidney varying in size from 1 -3 millimeters Right ureteral stent in place No calculi within the right ureter Mild right hydronephrosis without significant change
[2018-11-18] MEDS: HYDRALAZINE HCL 20 MG/ML VIAL IV PRN (12:20)
--- NOTE | 2018-11-18 14:54 | PN ---
Subjective: Patient is sitting in the chair, not in any acute distress. No new challenges. Objective: Vital Signs: Temperature 97.7, pulse 50, respirations 18, blood pressure 171/70. Laboratory Data: From yesterday shows WBC 6.8, hemoglobin 9.9, platelets are 156. BUN is 9, creatin ine 0.69, albumin is 1.7. Urine culture; E coli ESBL. Blood culture, fungus and urine culture also growing yeast. Assessment: Fungemia and funguria, also has extended-spectrum beta-lactamase Escherichia coli. Curr ently on meropenem and diflucan. Awaiting LTAC transfer. We will follow the patient closely. NF/MODL Voice ID: [id number] Report ID: [id number]
[2018-11-18] MEDS: NA CHLORIDE 0.9% 1,000 ML IV SCH (15:06)
--- NOTE | 2018-11-18 19:00 | PN ---
Date of Progress Note: 11/18/2018 Subjective: Patient seen and examined. Chart reviewed and case discussed with RN and Dr. Go. The patient's at the bedside. She is agreeable to LTAC placement. She is on 2 different antimicrobials. Medication List: Reviewed. Objective: Vital Signs: Temperature 97.1, heart rate 54, blood pressure 180/77 , respirations 18, O2 of 95% on room air. General: Awake, alert, oriented x3, not in any acute distress. Mildly ill- appearing female. CV: S1 and S2. Regular rate and rhythm. Respiratory: Clear to auscultation bilaterally. No wheezing or stridor. Gastrointestinal: Abdomen is soft, nontender, nondistended. Positive bowel sounds. Extremities: No clubbing, cyanosis, or edema. Neurologic: Nonfocal. Laboratory Data: Sodium 136, potassium 3.9, chloride 105, CO2 of 25, BUN 9, creatinine 0.69, glucose 83, calcium 9.1. Phosphorus 2.2, albumin 1.7. WBC 6.2 , H and H 9.9 and 29.1, platelets 156, neutrophils 59%. Urine culture, E coli with ESBL producing. Blood culture growing yeast, sensitivities have been sent out. CT scan of the abdomen and pelvis shows 5 calculi within the lower pole of the right kidney, varying in size from 1-3 mm, right ureteral stent in place. No calculi within the right ureter. Mild right hydronephrosis without significant change. Assessment And Plan: A 78-year-old female with: 1. Acute cystitis with hematuria secondary to extended-spectrum beta- lactamase Escherichia coli. Continue with meropenem. We will adjust dose. Now , the creatinine is improved. 2. Fungemia secondary to yeast. Sensitivities pending. We will continue with IV fluconazole. 3. Acute hypotension, improved. No signs of sepsis. 4. Nephrolithiasis with obstructive uropathy on the right side with hydronephrosis. Repeat CT scan shows multiple stones 1-3 mm in size with no change in hydronephrosis postop day #5. Appreciate Dr. Ortiz's input. 5. Acute kidney injury secondary to obstructive uropathy, improved. Creatinine is normalized. We will continue to monitor and avoid NSAIDs. 6. Acute generalized abdominal pain secondary to above, resolved. 7. Acute pancreatitis, resolved. 8. Coronary artery disease, [place] artery and [place] heart without angina, stable. 9. Diabetes mellitus type 2 with long-term use of insulin with hyperglycemia. We will continue sliding scale insulin and monitor blood glucose levels. 10. Essential hypertension, stable. The patient has been referred to [facility]. Discharge once accepted. The patient will need 4 weeks of antifungal and 4 weeks of meropenem. Patient has completed 1 week of meropenem here in the hospital. ELAYNE Voice ID: [id number] Report ID: [id number] LAKESHIA
[2018-11-19] MEDS: METOPROLOL TAR 25 MG TAB PO SCH ×2 (05:02→16:28)
[2018-11-19 05:52] LABS: Absolute Lymphocytes (CBC) 1.4 K/uL (0.7-4.9); Basophils % 0.9 % (0-1.3); Hematocrit 30.1 % (36.0-45.0); Lymphocytes % 20.5 % (15.3-44.8)
[2018-11-19 06:01] LABS: Albumin 1.9 g/dL (3.4-5.0); Bilirubin Total 0.3 mg/dL (0.2-1.0); Potassium 4.4 mmol/L (3.5-5.1); Protein, Total 5.8 g/dL (6.4-8.2)
[2018-11-19] MEDS: INSULIN -REGULAR HUMAN 50 UNIT/0.5 ML ML SQ SCH ×4 (07:30→21:00)
[2018-11-19] MEDS: FLUCONAZOLE 400 MG IVPB 400 MG/200 ML BAG IV SCH (08:48)
[2018-11-19] MEDS: TAMSULOSIN 0.4 MG SR CAP PO SCH (08:48)
[2018-11-19] MEDS: ATORVASTATIN 10 MG TAB PO SCH (08:49)
[2018-11-19] MEDS: PANTOPRAZOLE 40MG TABLET PO SCH ×2 (08:50→22:10)
[2018-11-19] MEDS: Meropenem 1,000 MG in NA CHLORIDE 0.9% 100 ML IV SCH ×2 (10:54→22:11)
[2018-11-19] MEDS: TRAMADOL HCL 50 MG TAB PO PRN ×3 (13:27→23:54)
[2018-11-19] MEDS: NA CHLORIDE 0.9% 1,000 ML IV SCH (16:30)
[2018-11-19] MEDS: ACETAMINOPHEN 500 MG TAB PO PRN (22:10)
[2018-11-20] MEDS: TRAMADOL HCL 50 MG TAB PO PRN (05:35)
[2018-11-20] MEDS: METOPROLOL TAR 25 MG TAB PO SCH ×2 (05:59→17:27)
[2018-11-20 06:31] LABS: Albumin 1.8 g/dL (3.4-5.0); Bilirubin Total 0.3 mg/dL (0.2-1.0); Protein, Total 5.8 g/dL (6.4-8.2)
[2018-11-20] MEDS: INSULIN -REGULAR HUMAN 50 UNIT/0.5 ML ML SQ SCH ×4 (07:30→21:00)
[2018-11-20] MEDS: NA CHLORIDE 0.9% 1,000 ML IV SCH ×2 (09:00→15:14)
[2018-11-20] MEDS: Meropenem 1,000 MG in NA CHLORIDE 0.9% 100 ML IV SCH ×2 (09:15→22:02)
[2018-11-20] MEDS: FLUCONAZOLE 400 MG IVPB 400 MG/200 ML BAG IV SCH (09:16)
[2018-11-20] MEDS: TAMSULOSIN 0.4 MG SR CAP PO SCH (09:16)
[2018-11-20] MEDS: ATORVASTATIN 10 MG TAB PO SCH (09:16)
[2018-11-20] MEDS: PANTOPRAZOLE 40MG TABLET PO SCH ×2 (09:17→22:02)
[2018-11-20] MEDS: ACETAMINOPHEN 500 MG TAB PO PRN (14:44)
--- NOTE | 2018-11-20 16:35 | P.PN ---
Subjective Date of Service: 11/20/18 Subjective: No new changes Patient seen and examined chart reviewed and case discussed with RN. No acute events overnight. Patient was denied LTAC after Peer to Peer with insurance company Review of Systems 10-point ROS is otherwise unremarkable Physical Examination - Vital Signs Temperature: 97.3 F Blood Pressure: 148/71 Pulse: 68 Respirations: 16 Pulse Ox (%): 93 - Physical Exam General: Alert, In no apparent distress, Oriented x3, Obese HEENT: Atraumatic, PERRLA, EOMI Neck: Supple, JVD not distended Respiratory: Clear to auscultation bilaterally, Normal air movement Cardiovascular: Normal pulses, Normal S1 S2 Gastrointestinal: Normal bowel sounds, Soft and benign, Non-distended, No tenderness Musculoskeletal: No tenderness Integumentary: No rashes, No erythema Neurological: Normal speech, Normal strength at 5/5 x4 extr, Normal tone, Normal affect - Studies Laboratory Last Values WBC 6.8 K/uL (4.3-10.9) 11/19/18 05:12 RBC 3.40 M/uL (3.86-4.86) L 11/19/18 05:12 Hgb 10.2 g/dL (12.0-15.0) L 11/19/18 05:12 Hct 30.1 % (36.0-45.0) L 11/19/18 05:12 MCV 88.7 fL (80-100) 11/19/18 05:12 MCH 30.0 pg (27.0-35.0) 11/19/18 05:12 MCHC 33.8 g/dL (32.0-36.0) 11/19/18 05:12 RDW 14.7 % (12.1-15.2) 11/19/18 05:12 Plt Count 198 K/uL (152-406) D 11/19/18 05:12 MPV 9.0 fL (7.6-11.3) 11/19/18 05:12 Neutrophils % 63.8 % (41.7-73.7) 11/19/18 05:12 Lymphocytes % 20.5 % (15.3-44.8) 11/19/18 05:12 Monocytes % 10.4 % (3.3-12.3) 11/19/18 05:12 Eosinophils % 4.4 % (0-4.4) 11/19/18 05:12 Basophils % 0.9 % (0-1.3) 11/19/18 05:12 Absolute Neutrophils 4.4 K/uL (1.8-8.0) 11/19/18 05:12 Segmented Neutrophils 83 % (40-80) H 11/13/18 19:44 Band Neutrophils 15 % (0-1) H* 11/13/18 19:44 Absolute Lymphocytes 1.4 K/uL (0.7-4.9) 11/19/18 05:12 Lymphocytes 2 % (15-42) L 11/13/18 19:44 Monocytes 0 % (0-10) 11/13/18 19:44 Absolute Monocytes 0.7 K/uL (0.1-1.3) 11/19/18 05:12 Absolute Eosinophils 0.3 K/uL (0-0.5) 11/19/18 05:12 Absolute Basophils 0.1 K/uL (0-0.5) 11/19/18 05:12 Morphology Comment Not seen (NOT SEEN) 11/14/18 10:45 Absolute Retic 0.04 M/uL (0.02-0.11) 11/14/18 10:45 Percent Retic 1.20 % (0.4-2.05) 11/14/18 10:45 PT 14.3 SECONDS (9.5-12.5) H 11/09/18 14:33 INR 1.22 11/09/18 14:33 Sodium 137 mmol/L (136-145) 11/20/18 05:40 Potassium 4.0 mmol/L (3.5-5.1) 11/20/18 05:40 Chloride 103 mmol/L (98-107) 11/20/18 05:40 Carbon Dioxide 29 mmol/L (21-32) 11/20/18 05:40 BUN 7 mg/dL (7-18) 11/20/18 05:40 Creatinine 0.68 mg/dL (0.55-1.3) 11/20/18 05:40 Estimated GFR 83 mL/min (=/>90) L 11/20/18 05:40 Glucose 63 mg/dL (74-106) L 11/20/18 05:40 POC Glucose 93 mg/dl (65-120) 11/18/18 19:08 Lactic Acid 0.7 mmol/L (0.4-2.0) 11/15/18 05:00 Calcium 9.3 mg/dL (8.5-10.1) 11/20/18 05:40 Phosphorus 2.2 mg/dL (2.5-4.9) L 11/18/18 04:00 Magnesium 2.1 mg/dL (1.8-2.4) 11/15/18 05:00 Total Bilirubin 0.3 mg/dL (0.2-1.0) 11/20/18 05:40 Direct Bilirubin 0.1 mg/dL (0-0.2) 11/09/18 14:33 AST 21 U/L (15-37) 11/20/18 05:40 ALT 18 U/L (12-78) 11/20/18 05:40 Alkaline Phosphatase 80 U/L (45-117) 11/20/18 05:40 Rapid Troponin I < 0.02 ng/mL (0.0-0.045) 11/09/18 14:33 Troponin I < 0.02 ng/mL (0.0-0.045) 11/15/18 05:00 NT-Pro-B Natriuret Pep 1131 pg/mL (<450) H 11/09/18 14:33 Serum Total Protein 5.8 g/dL (6.4-8.2) L 11/20/18 05:40 Albumin 1.8 g/dL (3.4-5.0) L 11/20/18 05:40 Globulin 4.0 g/dL (2.3-3.5) H 11/20/18 05:40 Albumin/Globulin Ratio 0.5 (1.1-1.8) L 11/20/18 05:40 Amylase 43 U/L (25-115) 11/13/18 19:44 Lipase 118 U/L (73-393) 11/13/18 19:44 Procalcitonin 28.21 ng/mL (<0.50) H 11/15/18 05:00 TSH 1.250 uIU/mL (0.360-3.740) 11/15/18 05:00 Free T4 0.96 ng/dL (0.76-1.46) 11/15/18 05:00 Urine Color Yellow 11/11/18 23:15 Urine Appearance Turbid 11/11/18 23:15 Urine pH 6.0 (5.0-7.0) 11/11/18 23:15 Ur Specific Post 1.015 (1.005-1.030) 11/11/18 23:15 Urine Ketones Negative (NEG) 11/11/18 23:15 Urine Blood 3+ (NEG) H 11/11/18 23:15 Urine Nitrite Negative (NEG) 11/11/18 23:15 Urine Bilirubin Negative (NEG) 11/11/18 23:15 Urine Urobilinogen 0.2 mg/dL (0.2-1.0) 11/11/18 23:15 Ur Leukocyte Esterase 3+ (NEG) H 11/11/18 23:15 Urine RBC 10-20 /HPF (NONE SEEN) H 11/11/18 23:15 Urine WBC >50 /HPF (<5) H 11/11/18 23:15 Ur Squamous Epith Cells <5 /HPF (NONE SEEN) 11/11/18 23:15 Ur Urothelial Cells 5-10 /HPF (NONE SEEN) 11/11/18 23:15 Urine Bacteria 20-50 /HPF (<20) H 11/11/18 23:15 Urine Yeast Few (NONE SEEN) 11/11/18 23:15 Ur Yeast w Hyphae Present 11/11/18 23:15 Urine Culture Reflexed Reflexed 11/11/18 23:15 Urine Glucose Negative (NEG) 11/11/18 23:15 Urine Total Protein Trace (NEG) 11/11/18 23:15 Microbiology Data (last 24 hrs): Yeast in blood ESBL coli in urine Medications List Reviewed: Yes Assessment And Plan - Plan A 78-year-old female with: 1. Acute cystitis with hematuria secondary to extended-spectrum beta- lactamase Escherichia coli. Continue with meropenem. 2. Fungemia secondary to yeast. Sensitivities pending. We will continue with IV fluconazole. 3. Acute hypotension, improved. No signs of sepsis. 4. Nephrolithiasis with obstructive uropathy on the right side with hydronephrosis. Repeat CT scan shows multiple stones 1-3 mm in size with no change in hydronephrosis postop day #7. Appreciate Dr. Ortiz's input. stent removal per urology 5. Acute kidney injury secondary to obstructive uropathy, improved. Creatinine is normalized. We will continue to monitor and avoid NSAIDs. 6. Acute generalized abdominal pain secondary to above, resolved. 7. Acute pancreatitis, resolved. 8. Coronary artery disease, [place] artery and [place] heart without angina, stable. 9. Diabetes mellitus type 2 with long-term use of insulin with hyperglycemia. We will continue sliding scale insulin and monitor blood glucose levels. 10. Essential hypertension, stable. Patient has been denied L. tac placement by insurance has been referred to senior care facility. Discharge once accepted
--- NOTE | 2018-11-20 19:02 | PN ---
Date of Progress Note: 11/19/2018 Subjective: Patient seen and examined. Chart reviewed and case discussed with RN. at the [facility]. Treatment plan explained, all questions answered. Physical Examination: Vital Signs: Temperature 97, heart rate 62, blood pressure 160/67, respirations 18, O2 98% on room a ir. General: Awake, alert, oriented x3. No acute distress, elderly female. CV: S1 and S2. No murmur. Regular rate and rhythm. Respiratory: Moving air well bilaterally. No wheezing or stridor. Gastrointestinal: Abdomen is soft, nontender, nondistended. Positive bowel sounds. Extremities: No clubbing, cyanosis, or edema. Neurologic: Nonfocal. Laboratory Data: Sodium 137, potassium 4.4, chloride 104, CO2 of 28, BUN 7, creatinine 0.67, glucose 70, calcium 9.5, albumin 1.9. WBC 6.8, H and H 10.2 and 30.1, platelets 198. Urine culture growing ESBL Escherichia coli. Blood culture growing yeast, 2/2 bottles. Assessment And Plan: A 78-year-old female with: 1.Acute cystitis with hematuria secondary to extended-spectrum beta-lactamase Escherichia coli. We will continue with meropenem. Patient is on day 9 for a total of 4 weeks. 2.Fungemia secondary to yeast. Sensitivities have been sent out and pending. Continue with IV fluc onazole for a total of 4 weeks. 3.Acute hypotension, improved. 4.Nephrolithiasis with obstructive uropathy on the right side with hydronephrosis. Repeat CT scan s till shows stones 1-3 mm in size with no change in hydronephrosis postop day #6. Dr. Ortiz's plans o n removing the stent on day 7. 5.Acute kidney injury secondary to obstructive uropathy, improving. Continue to monitor creatinine level and avoid NSAIDs. 6.Acute generalized abdominal pain secondary to above. 7.Acute pancreatitis, resolved. 8.Coronary artery disease, [place] artery, and [place] heart without angina, stable. 9.Diabetes mellitus type 2 with long-term use of insulin, currently with hypoglycemia. Continue sli ding scale insulin. Monitor blood glucose levels, adjust if continues to be hypoglycemic. 10.Essential hypertension, stable. Plan: Awaiting for [id number] with [facility] for LTAC placement. Patient requires 2 antimicrobial therapies multiple times a day and requires labs to be monitored. /GUME Voice ID: [id number] Report ID: [id number]
[2018-11-20] MEDS: GLUCERNA SHAKE 237 ML CAN PO SCH (21:00)
[2018-11-21] MEDS: METOPROLOL TAR 25 MG TAB PO SCH ×2 (06:10→17:16)
[2018-11-21 06:56] LABS: Bilirubin Total 0.3 mg/dL (0.2-1.0); Potassium 4.4 mmol/L (3.5-5.1); Protein, Total 6.1 g/dL (6.4-8.2)
[2018-11-21] MEDS: INSULIN -REGULAR HUMAN 50 UNIT/0.5 ML ML SQ SCH ×4 (07:30→19:49)
[2018-11-21] MEDS: FLUCONAZOLE 400 MG IVPB 400 MG/200 ML BAG IV SCH (08:23)
[2018-11-21] MEDS: Meropenem 1,000 MG in NA CHLORIDE 0.9% 100 ML IV SCH ×2 (08:24→19:51)
[2018-11-21] MEDS: ATORVASTATIN 10 MG TAB PO SCH (08:25)
[2018-11-21] MEDS: PANTOPRAZOLE 40MG TABLET PO SCH ×2 (08:25→19:49)
[2018-11-21] MEDS: TAMSULOSIN 0.4 MG SR CAP PO SCH (08:25)
[2018-11-21] MEDS: GLUCERNA SHAKE 237 ML CAN PO SCH ×2 (08:25→19:48)
[2018-11-21] MEDS ORDERED: NA CHLORIDE 0.9% 500 ML ONE (08:29)
[2018-11-21] MEDS: HYDRALAZINE HCL 20 MG/ML VIAL IV PRN (16:01)
[2018-11-21] MEDS: ACETAMINOPHEN 500 MG TAB PO PRN (21:14)
--- NOTE | 2018-11-22 00:48 | PN ---
Date of Progress Note: 11/21/2018 Subjective: Patient is seen and examined. Chart reviewed and case discussed with RN. Patient await ing placement to SNF. No acute events overnight. Medication List: Reviewed. Physical Examination: Vital Signs: Temperature 97.2, heart rate 52, blood pressure 136/88, respirations 16, O2 98% on room air. General: Awake, alert, oriented x3. No acute distress. CV: S1, S2. No murmurs. Respiratory: Moving air well bilaterally. No wheezing. Gastrointestinal: Abdomen is soft, nontender, nondistended. Positive bowel sounds. Extremities: No clubbing, cyanosis, or edema. Neurologic: Nonfocal. Laboratory Data: Sodium 136, potassium 4.4, chloride 101, CO2 of 33, BUN 9, creatinine 0.75, glucose 86, calcium 10, albumin 2. WBC pending. Urine culture growing out E coli with ESBL and blood cultu res growing out yeast with ID and sensitivity sent out, still pending at this time. Assessment And Plan: 78-year-old female with: 1.Acute cystitis with hematuria secondary to extended spectrum beta-lactamase Escherichia coli. Con tinue with meropenem, day #12 out of 4 weeks. 2.Fungemia secondary to yeast. Sensitivities have been sent out to outside lab. Currently awaiting results. We will continue with IV fluconazole. Appreciate ID input. We will recommend IV fluconaz ole for 4 weeks total. 3.Acute hypotension, improved. Blood pressure is now normalized. 4.Nephrolithiasis with obstructive uropathy on the right side with hydronephrosis, postoperative day #8. Urology on board. 5.Acute kidney injury secondary to obstructive uropathy. Creatinine is normalized. We will continu e to monitor. No nephrotoxins or NSAIDs. 6.Acute generalized abdominal pain secondary to above, resolved. 7.Acute pancreatitis, resolved. 8.Coronary artery disease, [place] artery, [place] heart without angina, stable. 9.Diabetes mellitus type 2 with long-term use of insulin with hyperglycemia. We will continue slidi ng scale insulin and monitor Accu-Cheks and adjust as necessary. 10.Essential hypertension, stable. Resume medications as appropriate. [facility] LTAC was denied by insurance. /GUME Voice ID: [id number] Report ID: [id number]
[2018-11-22 04:31] LABS: Albumin 1.9 g/dL (3.4-5.0); Bilirubin Total 0.3 mg/dL (0.2-1.0); Potassium 4.3 mmol/L (3.5-5.1); Protein, Total 5.7 g/dL (6.4-8.2)
[2018-11-22 04:35] LABS: Magnesium 1.7 mg/dL (1.8-2.4); Phosphorus 2.1 mg/dL (2.5-4.9)
[2018-11-22] MEDS: METOPROLOL TAR 25 MG TAB PO SCH ×2 (05:36→17:23)
[2018-11-22] MEDS: POTASS/SODIUM PHOSPHATE 1 PKT POWD.PACK PO SCH ×3 (07:00→08:59)
[2018-11-22] MEDS: INSULIN -REGULAR HUMAN 50 UNIT/0.5 ML ML SQ SCH ×4 (07:30→20:30)
[2018-11-22] MEDS: FLUCONAZOLE 400 MG IVPB 400 MG/200 ML BAG IV SCH (08:00)
[2018-11-22] MEDS ORDERED: MAGNESIUM SULFATE 1 gm IVPB 1 GM/100 ML BAG IV ONE (08:00)
[2018-11-22] MEDS: TAMSULOSIN 0.4 MG SR CAP PO SCH (08:42)
[2018-11-22] MEDS: ATORVASTATIN 10 MG TAB PO SCH (08:42)
[2018-11-22] MEDS: PANTOPRAZOLE 40MG TABLET PO SCH ×2 (08:43→20:30)
[2018-11-22] MEDS: GLUCERNA SHAKE 237 ML CAN PO SCH ×2 (08:45→20:30)
[2018-11-22] MEDS: Meropenem 1,000 MG in NA CHLORIDE 0.9% 100 ML IV SCH ×2 (08:45→20:30)
--- NOTE | 2018-11-22 11:32 | PN ---
The patient's CT scan revealed a tiny stone in the right lower pole, stent is in good position, no mo re urolithiasis. We are going to go ahead and discontinue her stent today. Recommend continue IV an tibiotics for ESBL, lots of hydration. NATE/GUME Voice ID: [id number] Report ID: [id number]
[2018-11-22] MEDS ORDERED: TRAMADOL HCL 50 MG TAB PO ONE (17:07)
--- NOTE | 2018-11-22 20:38 | PN ---
Date of Progress Note: 11/22/2018 Subjective: Patient seen and examined, chart reviewed, and case discussed with RN. at the bedside. Treatment plan explained, all questions answered. Medication was reviewed. Physical Examination: Vital Signs: Temperature 97, blood pressure 158/70, respirations 16, O2 96% on room air. General: Awake, alert, oriented x3. Obese female, not in any acute distress. CV: S1, S2. Regular rate and rhythm. Peripheral pulses present. Respiratory: Moving air well bilaterally. Minimal diminished breath sounds at the bases. No wheezing or stridor. Gastrointestinal: Abdomen is soft, nontender, nondistended. Positive bowel sounds. Extremities: No clubbing, cyanosis. No edema. Neurologic: Nonfocal. Laboratory Data: Phosphorus 2.1, magnesium 1.7. Sodium 140, potassium 4.3, chloride 104, CO2 33, BUN 8, creatinine 0.75, glucose 85, calcium 9.9, albumin 1.9. WBCs pending. Urine culture growing ESBL E coli, ESBL producing, sent out and labs pending. Assessment And Plan: A 78-year-old female with: 1. Acute cystitis with hematuria secondary to extended-spectrum beta- lactamase Escherichia coli. We will continue with meropenem day 13 of 4 weeks total. 2. Fungemia secondary to yeast. Sensitivities pending. Continue with IV fluconazole for 4 weeks per ID recommendation. 3. Acute hypotension, resolved. 4. Nephrolithiasis with obstructive uropathy on the right side with hydronephrosis. Repeat CT scan did show small stones, postop day #9. Neurology on board. Dr. Ortiz discontinued stent today. Encourage hydration. 5. Acute kidney injury secondary to obstructive uropathy. Creatinine normalized. We will continue to monitor. Avoid NSAIDs. Avoid nephrotoxins. 6. Acute generalized abdominal pain secondary to above, resolved. 7. Acute pancreatitis, resolved. 8. Coronary artery disease, [place] artery, [place] heart without angina, stable. 9. Diabetes mellitus type 2 with long-term use of insulin with hyperglycemia. We will continue sliding scale insulin and monitor blood glucose levels. 10. Essential hypertension, stable. 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 Patient appears to show signs of generalized weakness, barely able to lift herself up during the examination and sitting up. Patient encouraged to continue working with physical therapy. Encouraged to remain out of bed in the chair with nurses assistance for several hours a day. Patient also likely developing atelectasis. We will add incentive spirometry. 12. Deep vein thrombosis prophylaxis addressed. Plan [facility] as she was declined LTAC placement by insurance. 13. Severe protein-calorie malnutrition. Albumin 1.9. Encourage p.o. intake and protein supplementation. /GUME Voice ID: [id number] Report ID: [id number] LAKESHIA
[2018-11-22] MEDS: TRAMADOL HCL 50 MG TAB PO PRN (21:18)
[2018-11-22 21:28] VITALS: O2SAT 94
[2018-11-23] MEDS: TRAMADOL HCL 50 MG TAB PO PRN ×4 (00:49→12:42)
[2018-11-23] MEDS: HYDRALAZINE HCL 20 MG/ML VIAL IV PRN ×2 (00:49→16:12)
[2018-11-23 04:43] LABS: Absolute Lymphocytes (CBC) 2.2 K/uL (0.7-4.9); Basophils % 1.1 % (0-1.3); Hematocrit 31.4 % (36.0-45.0); Lymphocytes % 26.9 % (15.3-44.8); MPV 8.4 fL (7.6-11.3); RBC Red Blood Cell Count 3.54 M/uL (3.86-4.86)
[2018-11-23 05:00] LABS: Magnesium 2.1 mg/dL (1.8-2.4); Phosphorus 2.5 mg/dL (2.5-4.9); Potassium 4.3 mmol/L (3.5-5.1)
[2018-11-23] MEDS: POTASS/SODIUM PHOSPHATE 1 PKT POWD.PACK PO SCH ×3 (05:47→10:00)
[2018-11-23] MEDS: METOPROLOL TAR 25 MG TAB PO SCH ×2 (05:48→17:14)
[2018-11-23] MEDS: ONDANSETRON 4 MG/2 ML VIAL IV PRN ×3 (05:51→16:12)
[2018-11-23] MEDS: INSULIN -REGULAR HUMAN 50 UNIT/0.5 ML ML SQ SCH ×3 (07:30→16:17)
[2018-11-23] MEDS: ATORVASTATIN 10 MG TAB PO SCH (08:20)
[2018-11-23] MEDS: TAMSULOSIN 0.4 MG SR CAP PO SCH (08:21)
[2018-11-23] MEDS: GLUCERNA SHAKE 237 ML CAN PO SCH (08:27)
[2018-11-23] MEDS: PANTOPRAZOLE 40MG TABLET PO SCH (09:18)
[2018-11-23] MEDS: FLUCONAZOLE 400 MG IVPB 400 MG/200 ML BAG IV SCH (09:18)
[2018-11-23] MEDS: Meropenem 1,000 MG in NA CHLORIDE 0.9% 100 ML IV SCH (10:13)
--- NOTE | 2018-11-23 15:18 | PN ---
Subjective: Patient lying in bed. Continued to have nausea and vomiting today. Denies any other pr oblems. Objective: Vital Signs: Temperature 97, pulse 64, respirations 16, blood pressure 144/76. Lungs: Basal crackles. Heart: S1, S2. Regular. Abdomen: Soft, nontender. Bowel sounds present. Extremities: No edema. Assessment And Plan: Patient with hematuria and cystitis, fungemia, funguria, and bacteriuria, being treated with IV antibiotic and antifungal. Patient also has developed nausea and vomiting. We will repeat chemistry. Patient is being transferred to long-term skilled facility to be followed over . We will follow patient while she is in the hospital. NINOSKA/GUME Voice ID: [id number] Report ID: [id number]
[2018-11-23 17:13] VITALS: TEMP 97.4
[2018-11-23 17:14] VITALS: BP 126/56
--- NOTE | 2018-11-24 14:07 | DS ---
Date of Discharge: 11/23/2018 Consultants: 1. Dr. Ortiz with Urology. 2. Dr. Go with Infectious Disease. 3. Dr. Mckinley with General Surgery. Indication: PICC line unsuccessful. Procedures: On 11/13/[address] Ortiz, stent placement, cysto, right ureteroscopy, laser and 11/22/2018 removal of stent by Dr. Ortiz. Admitting Diagnoses: 1. Acute kidney injury. 2. Hydronephrosis. 3. Right nephrolithiasis. 4. Abdominal pain. 5. Acute pancreatitis. 6. Coronary artery disease, [place] artery and [place]jas heart without angina. 7. Diabetes mellitus type 2 with long-term use of insulin without complication. 8. Essential hypertension. 9. Mixed hyperlipidemia. 10. Osteoarthritis. 11. Chronic pain syndrome. 12. Neuropathy. Discharge Diagnoses: 1. Acute cystitis with hematuria secondary to ESBL E coli. 2. Fungemia secondary to yeast. 3. Acute hypertension, resolved. 4. Nephrolithiasis with obstructive uropathy on the right with hydronephrosis with stent and stone removal with subsequent stent removal as well. 5. Acute kidney injury secondary to obstructive uropathy normalized. 6. Acute generalized abdominal pain secondary to above resolved. 7. Acute pancreatitis, resolved. 8. Coronary artery disease, [place] artery and viejas heart without angina stable. 9. Diabetes mellitus type 2 with long-term use of insulin with hyperglycemia. 10. Essential hypertension, stable. 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 12. Severe protein-calorie malnutrition. 13. Osteoarthritis. 14. Neuropathy. Hospital Course: The patient is a 78-year-old female with multiple comorbid conditions including heart disease, hypertension, hyperlipidemia, diabetes, arthritis, history of previous pancreatitis, neuropathy, who comes in with left lower abdominal pain. Patient was found to have nephrolithiasis and right- sided urethral stone of 4 mm and her lipase was also elevated. This clinically however was not consistent with pancreatitis. Dr. Mckinley was consulted for central line placement as PICC line was unsuccessful. Dr. Ortiz was consulted with Urology for stone, patient underwent stent placement and stone removal with laser. The patient subsequently had stent removed as well. Patient had a prolonged stay during the hospital course due to need for IV antibiotics placement issues. Patient had acute cystitis and was found to have ESBL E coli growing. Therefore , she was switched over to meropenem. Blood cultures were positive for yeast. Patient was started on an antifungal. Infectious Disease, Dr. Go was consulted. He recommended 4 weeks of antifungal therapy. Patient was initially attempted to be discharged to home with home health for IV meropenem. However, due to central line and other issues, the patient was not accepted. Therefore, LTAC placement was started and the patient unfortunately was denied by insurance. [id number] was also done, however, still denied. Patient was then referred to alf facility and was finally accepted. Patient continued to work with PT, however, patient does not mobilize well. She likes to stay in bed. She was counseled regarding the risks including disuse myopathy , DVT, etc. Patient was then cleared for discharge and [facility] Medications: As per medication reconciliation list. Patient to have weekly CBC, CMP, ESR and CRP and to have antimicrobials dosed renally. Follow on her liver enzymes as well. Followup with primary care physician in 1 week. Follow up with Dr. Go, Infectious Disease in 2 weeks. Follow up with urologist, Dr. Ortiz, in 2 weeks. Return to ER for worsening condition. Diet: Diabetic diet. Activity: As tolerated. Fall precautions. Physical Examination: General: Awake, alert, oriented, elderly female. CV: S1, S2. Respiratory: Moving air well bilaterally. Abdomen: Abdomen is soft, nontender, nondistended. Positive bowel sounds. Extremities: No clubbing, cyanosis, or edema. Neurologic: Nonfocal. Total time spent discharging the patient was 45 minutes. ELAYNE Voice ID: [id number] Report ID: [id number] LAKESHIA
== END 2018-11-23 20:12 | DRG 659 ==
LOC: ER 13:19 → ERHOLD 16:47 → 2ND 17:22 → OBSVTOIN 11-11 19:55 → 3RD-ICU 11-13 22:08 → 4TH 11-14 14:47
PROVIDERS: ADMIT Family Medicine; ATTEND Family Medicine
PROC: 06HY33Z Insertion of Infusion Device into Lower Vein, Percutaneous Approach (ICD-10-PCS; 2018-11-10)
PROC: 05HM33Z Insertion of Infusion Device into Right Internal Jugular Vein, Percutaneous Approach (ICD-10-PCS; 2018-11-12)
PROC: 0TC68ZZ Extirpation of Matter from Right Ureter, Via Natural or Artificial Opening Endoscopic (ICD-10-PCS; 2018-11-13)
PROC: 0T768DZ Dilation of Right Ureter with Intraluminal Device, Via Natural or Artificial Opening Endoscopic (ICD-10-PCS; principal; 2018-11-13 12:00)
DX: N13.2 Hydronephrosis with renal and ureteral calculous obstruction (principal); K85.10 Biliary acute pancreatitis without necrosis or infection; E43 Unspecified severe protein-calorie malnutrition; N30.00 Acute cystitis without hematuria; B49 Unspecified mycosis; I10 Essential (primary) hypertension; N17.9 Acute kidney failure, unspecified; E11.9 Type 2 diabetes mellitus without complications; E78.5 Hyperlipidemia, unspecified; G89.29 Other chronic pain; I25.10 Atherosclerotic heart disease of native coronary artery without angina pectoris; I48.91 Unspecified atrial fibrillation; N13.9 Obstructive and reflux uropathy, unspecified; I95.2 Hypotension due to drugs; T46.5X5A Adverse effect of other antihypertensive drugs, initial encounter; B96.20 Unspecified Escherichia coli [E. coli] as the cause of diseases classified elsewhere; I25.2 Old myocardial infarction; Z68.29 Body mass index [BMI] 29.0-29.9, adult
CPT/HCPCS: 36415; 51702; 70450; 71045; 71250; 74018; 74176; 74420; 76000; 80048; 80053; 80076; 81003; 81015; 82150; 82360; 82962; 83605; 83690; 83735; 83880; 84100; 84145; 84439; 84443; 84484; 85025; 85044; 85610; 87040; 87077; 87086; 87088; 87186; 87205; 88300; 93005; 96361; 96374; 96375; 97116; 97161; 97530; 99285; C9113; G0378; J0360; J0696; J0744; J1170; J1450; J1642; J2250; J2370; J2405; J2550; J2704; J3010; J3475; J7030; J7040

== ENCOUNTER 2019-02-08 16:17 | Emergency (ER) | payer OTHER ==
--- OUTSIDE RECORDS SUMMARY | 2019-02-08 16:21 | XMS REPORT ---
:1940 [facility] [address] [place] [address] Care Team Providers Name Role Phone RYAN REHMAN Unavailable Unavailable Payers Payer Name Policy Type Policy Number Effective Date Expiration Date Problems This patient has no known problems. Allergies, Adverse Reactions, Alerts Allergy Name Allergy Status Severity Reaction(s) Onset Inactive Treating Comments Type Date Date Clinician codeine DA Active U 2018-11 00:00:0 0 propoxyphene DA Active U 2018-11 00:00:0 0 Medications This patient has no known medications. Encounters Start End Encounter Admission Attending Care Care Encounter Date/Time Date/Time Type Type Clinicians Facility Department ID 2019-01-29 2019-01-29 Inpatient [facility] 7500 18:48:00 13:48:00 Results Test Description Test Time Test Comments Text Results Atomic Results Result Comments GLUCOSE BEDSIDE TESTING 2018-11-28 17:18:00 Test Item Value Reference Range Comments GLUCOSE BEDSIDE TESTING (test code=GLUBED) 137 mg/dL 70-110 GLUCOSE BEDSIDE [id number] 12:44:00 Test Item Value Reference Range Comments GLUCOSE BEDSIDE TESTING (test code=GLUBED) 177 mg/dL 70-110 BASIC METABOLIC [id number] 09:05:00 Test Item Value Reference Range Comments SODIUM (test code=NA) 136 mmol/L 134-147 POTASSIUM (test code=K) 4.3 mmol/L 3.4-5.0 CHLORIDE (test code=CL) 103 mmol/L 100-108 CARBON DIOXIDE (test code=CO2) 29 mmol/L 21-32 ANION GAP (test code=GAP) 4.0 GAP calc 4.0-15.0 GLUCOSE (test code=GLU) 119 MG/DL 70-110 BLOOD UREA NITROGEN (test code=BUN) 9 MG/DL 7-18 GLOMERULAR FILTRATION RATE (test code=GFR) 57 estGFR >60 CREATININE (test code=CREAT) 1.0 MG/DL 0.6-1.0 CALCIUM (test code=CA) 9.3 MG/DL 8.5-10.1 GLUCOSE BEDSIDE [id number] 08:15:00 Test Item Value Reference Range Comments GLUCOSE BEDSIDE TESTING (test code=GLUBED) 120 mg/dL 70-110 GLUCOSE BEDSIDE [id number] 03:47:00 Test Item Value Reference Range Comments GLUCOSE BEDSIDE TESTING (test code=GLUBED) 95 mg/dL 70-110 GLUCOSE BEDSIDE [id number] 00:45:00 Test Item Value Reference Range Comments GLUCOSE BEDSIDE TESTING (test code=GLUBED) 88 mg/dL 70-110 GLUCOSE BEDSIDE [id number] 20:27:00 Test Item Value Reference Range Comments GLUCOSE BEDSIDE TESTING (test code=GLUBED) 162 mg/dL 70-110 GLUCOSE BEDSIDE [id number] 16:40:00 Test Item Value Reference Range Comments GLUCOSE BEDSIDE TESTING (test code=GLUBED) 119 mg/dL 70-110 GLUCOSE BEDSIDE [id number] 15:18:00 Test Item Value Reference Range Comments GLUCOSE BEDSIDE TESTING (test code=GLUBED) < 10 mg/dL 70-110 GLUCOSE BEDSIDE [id number] 13:04:00 Test Item Value Reference Range Comments GLUCOSE BEDSIDE TESTING (test code=GLUBED) 113 mg/dL 70-110 GLUCOSE BEDSIDE [id number] 10:21:00 Test Item Value Reference Range Comments GLUCOSE BEDSIDE TESTING (test code=GLUBED) 87 mg/dL 70-110 GLUCOSE BEDSIDE [id number] 09:23:00 Test Item Value Reference Range Comments GLUCOSE BEDSIDE TESTING (test code=GLUBED) 85 mg/dL 70-110 GLUCOSE BEDSIDE [id number] 08:16:00 Test Item Value Reference Range Comments GLUCOSE BEDSIDE TESTING (test code=GLUBED) 84 mg/dL 70-110 GLUCOSE BEDSIDE [id number] 06:46:00 Test Item Value Reference Range Comments GLUCOSE BEDSIDE TESTING (test code=GLUBED) 93 mg/dL 70-110 BASIC METABOLIC [id number] 06:03:00 Test Item Value Reference Range Comments SODIUM (test code=NA) 139 mmol/L 134-147 POTASSIUM (test code=K) 3.9 mmol/L 3.4-5.0 CHLORIDE (test code=CL) 105 mmol/L 100-108 CARBON DIOXIDE (test code=CO2) 29 mmol/L 21-32 ANION GAP (test code=GAP) 5.0 GAP calc 4.0-15.0 GLUCOSE (test code=GLU) 99 MG/DL 70-110 BLOOD UREA NITROGEN (test code=BUN) 8 MG/DL 7-18 GLOMERULAR FILTRATION RATE (test >=60 max estimate estGFR >60 code=GFR) CREATININE (test code=CREAT) 0.8 MG/DL 0.6-1.0 CALCIUM (test code=CA) 9.5 MG/DL 8.5-10.1 BASIC METABOLIC [id number] 06:01:00 Test Item Value Reference Range Comments SODIUM (test code=NA) 139 mmol/L 134-147 POTASSIUM (test code=K) 3.9 mmol/L 3.4-5.0 CHLORIDE (test code=CL) 105 mmol/L 100-108 CARBON DIOXIDE (test code=CO2) 29 mmol/L 21-32 ANION GAP (test code=GAP) 5.0 GAP calc 4.0-15.0 GLUCOSE (test code=GLU) 99 MG/DL 70-110 BLOOD UREA NITROGEN (test code=BUN) 8 MG/DL 7-18 GLOMERULAR FILTRATION RATE (test code=GFR) estGFR >60 CREATININE (test code=CREAT) MG/DL 0.6-1.0 CALCIUM (test code=CA) 9.5 MG/DL 8.5-10.1 GLUCOSE BEDSIDE [id number] 04:40:00 Test Item Value Reference Range Comments GLUCOSE BEDSIDE TESTING (test code=GLUBED) 92 mg/dL 70-110 GLUCOSE BEDSIDE [id number] 02:48:00 Test Item Value Reference Range Comments GLUCOSE BEDSIDE TESTING (test code=GLUBED) 87 mg/dL 70-110 GLUCOSE BEDSIDE [id number] 01:17:00 Test Item Value Reference Range Comments GLUCOSE BEDSIDE TESTING (test code=GLUBED) 12 mg/dL 70-110 GLUCOSE BEDSIDE [id number] 00:45:00 Test Item Value Reference Range Comments GLUCOSE BEDSIDE TESTING (test code=GLUBED) 114 mg/dL 70-110 GLUCOSE BEDSIDE [id number] 00:45:00 Test Item Value Reference Range Comments GLUCOSE BEDSIDE TESTING (test code=GLUBED) 58 mg/dL 70-110 GLUCOSE BEDSIDE [id number] 21:52:00 Test Item Value Reference Range Comments GLUCOSE BEDSIDE TESTING (test code=GLUBED) 110 mg/dL 70-110 GLUCOSE BEDSIDE [id number] 20:31:00 Test Item Value Reference Range Comments GLUCOSE BEDSIDE TESTING (test code=GLUBED) 30 mg/dL 70-110 GLUCOSE BEDSIDE [id number] 18:52:00 Test Item Value Reference Range Comments GLUCOSE BEDSIDE TESTING (test code=GLUBED) 107 mg/dL 70-110 GLUCOSE BEDSIDE [id number] 18:47:00 Test Item Value Reference Range Comments GLUCOSE BEDSIDE TESTING (test code=GLUBED) 69 mg/dL 70-110 GLUCOSE BEDSIDE [id number] 17:18:00 Test Item Value Reference Range Comments GLUCOSE BEDSIDE TESTING (test code=GLUBED) 103 mg/dL 70-110 GLUCOSE BEDSIDE [id number] 17:18:00 Test Item Value Reference Range Comments GLUCOSE BEDSIDE TESTING (test code=GLUBED) 142 mg/dL 70-110 GLYCOSYLATED HEMOGLOBIN [id number] 16:51:00 Test Item Value Reference Range Comments GLYCOSYLATED HEMOGLOBIN (HA1C) (test 6.0 % A1C 4.2-6.3 code=GLYHGB) ESTIMATED AVERAGE GLUCOSE (test code=EAG) 126 MG/DLest GLUCOSE BEDSIDE [id number] 16:19:00 Test Item Value Reference Range Comments GLUCOSE BEDSIDE TESTING (test code=GLUBED) 43 mg/dL 70-110 GLUCOSE BEDSIDE [id number] 15:13:00 Test Item Value Reference Range Comments GLUCOSE BEDSIDE TESTING (test code=GLUBED) 148 mg/dL 70-110 GLUCOSE BEDSIDE [id number] 15:13:00 Test Item Value Reference Range Comments GLUCOSE BEDSIDE TESTING (test code=GLUBED) 12 mg/dL 70-110 GLUCOSE BEDSIDE [id number] 12:22:00 Test Item Value Reference Range Comments GLUCOSE BEDSIDE TESTING (test code=GLUBED) 103 mg/dL 70-110 UA RFLX MICR CULT IF [id number] 11:25:00 Test Item Value Reference Range Comments UA COLOR (test code=COLU) YELLOW discript YEL/STRAW UA APPEARANCE (test code=APPU) HAZY discript CLEAR UA GLUCOSE DIPSTICK (test NEGATIVE mg/dL NEG code=DGLUU) UA BILIRUBIN DIPSTICK (test NEGATIVE mg/dL NEG code=BILU) UA KETONE DIPSTICK (test NEGATIVE mg/dL NEG code=KETU) UA SPECIFIC GRAVITY (test 1.010 SG 1.005-1.030 code=SGU) UA BLOOD DIPSTICK (test code=OMARI) 1+ mg/DL NEG UA PH DIPSTICK (test code=MEGAN) 7.5 pH UNITS 5.0-7.0 UA PROTEIN DIPSTICK (test 1+ mg/dL NEG code=PROU) UA UROBILINIOGEN DIPSTICK (test 0.2 mg/dL <2.0 code=URO) UA NITRITE DIPSTICK (test NEGATIVE SCREEN NEG code=TUTU) UA LEUKOCYTE ESTERASE DIPSTICK 2+ Leuk/mcL NEGATIVE (test code=LEUU) UA WBC (test code=WBCU) 20-30 #WBC/HPF 0-3 UA RBC (test code=RBCU) 5-10 #RBC/HPF 0-3 UA BACTERIA (test code=BACU) 2+ /HPF NONE-TRACE UA SQUAMOUS CELLS (test code=SQU) 1+ /HPF NONE UA CULTURE NEEDED? (test YES,WBC>10 & EPI<25 Culture CHK code=UACULT) Criteria SOURCE OF URINE: CLEAN CATCHIndication for culture: Dysuria/FrequencyUA RFLX MICR CULT IF [id number] 11:16:00 Test Item Value Reference Range Comments UA COLOR (test code=COLU) YELLOW discript YEL/STRAW UA APPEARANCE (test code=APPU) HAZY discript CLEAR UA GLUCOSE DIPSTICK (test code=DGLUU) NEGATIVE mg/dL NEG UA BILIRUBIN DIPSTICK (test code=BILU) NEGATIVE mg/dL NEG UA KETONE DIPSTICK (test code=KETU) NEGATIVE mg/dL NEG UA SPECIFIC GRAVITY (test code=SGU) 1.010 SG 1.005-1.030 UA BLOOD DIPSTICK (test code=OMARI) 1+ mg/DL NEG UA PH DIPSTICK (test code=MEGAN) 7.5 pH UNITS 5.0-7.0 UA PROTEIN DIPSTICK (test code=PROU) 1+ mg/dL NEG UA UROBILINIOGEN DIPSTICK (test code=URO) 0.2 mg/dL <2.0 UA NITRITE DIPSTICK (test code=TUTU) NEGATIVE SCREEN NEG UA LEUKOCYTE ESTERASE DIPSTICK (test 2+ Leuk/mcL NEGATIVE code=LEUU) UA CULTURE NEEDED? (test code=UACULT) Criteria Culture CHK SOURCE OF URINE: CLEAN CATCHIndication for culture: Dysuria/Frequency- XR CHEST 1 [id number] 10:36:00 Name: JUDY CALHOUN [facility] : 1940 Age/S: 78 / F [address] [facility] Unit #: [id number] Loc: [place] [address] Phys: Chance Mckinnon MD Acct: [id number] Dis Date: Status: PRE ER PHONE #: [phone] Exam Date: 11/26/2018 1015 FAX #: Reason: Suspected Sepsis EXAMS: CPT: [id number] XR CHEST 1 V 30066 Fluoro Time: DAP (Gy m2): Air Kerma (mGy): R16 EXAM: - XR CHEST 1 V HISTORY: Suspected Sepsis COMPARISON: None FINDINGS: Rightinternal jugular central line tip projects over the superior vena cava. The lungs are clear. No pleural effusion or pneumothorax. The cardiac silhouette is within normal limits. No acute osseous abnormalities. IMPRESSION : Right internal jugular central line inplace. No acute cardiopulmonary disease. at 1036 Reported and signed by: Qasim Carroll M.D. CC: Chance Mckinnon MD PAGE 1 Signed Report Name: JUDY CALHOUN [place] : 1940 Age/S: 78 / F [address] [facility] Unit #: [id number]: [place] [address] Phys: Chance Mckinnon MD Acct: [id number] Dis Date: Status: PRE ER PHONE #: [phone] Exam Date: 11/26/2018 1015 FAX #: Reason: Suspected Sepsis EXAMS: CPT: [id number] XR CHEST 1 V 88858 Fluoro Time: DAP (Gy m2): Air Kerma (mGy): & lt;Continued> Technologist: Gregoria Brooke RT(R) Trnscb Date/Time: 11/26/2018 (1036) [id number] Orig Print D/T: S: 11/26/2018 (4231) PAGE 2 Signed ReportCOMPREHENSIVE METABOLIC [id number] 10:32:00 Test Item Value Reference Range Comments SODIUM (test code=NA) 135 mmol/L 134-147 POTASSIUM (test code=K) 3.9 mmol/L 3.4-5.0 CHLORIDE (test code=CL) 100 mmol/L 100-108 CARBON DIOXIDE (test code=CO2) 33 mmol/L 21-32 ANION GAP (test code=GAP) 2.0 GAP calc 4.0-15.0 GLUCOSE (test code=GLU) 86 MG/DL 70-110 BLOOD UREA NITROGEN (test code=BUN) 17 MG/DL 7-18 GLOMERULAR FILTRATION RATE (test code=GFR) 51 estGFR >60 CREATININE (test code=CREAT) 1.1 MG/DL 0.6-1.0 TOTAL PROTEIN (test code=PROT) 6.9 G/DL 6.4-8.2 ALBUMIN (test code=ALB) 2.4 G/DL 3.4-5.0 GLOBULIN (test code=GLOB) 4.5 GM/dL ALBUMIN/GLOBULIN RATIO (test code=A/G) 0.5 RATIO 1.2-2.2 CALCIUM (test code=CA) 10.6 MG/DL 8.5-10.1 BILIRUBIN TOTAL (test code=BILT) 0.20 MG/DL 0.2-1.2 SGOT/AST (test code=AST) 23 Unit/L 15-37 SGPT/ALT (test code=ALT) 15 Unit/L 12-78 ALKALINE PHOSPHATASE TOTAL (test code=ALKP) 91 Unit/L 45-117 LACTIC ACID [id number] 10:21:00 Test Item Value Reference Range Comments LACTIC ACID POC (test code=LACTP) 1.81 MMOL/L 0.90-1.70 CBC W/AUTO [id number] 10:10:00 Test Item Value Reference Range Comments WHITE BLOOD CELL (test code=WBC) 7.6 K/mm3 3.5-11.0 RED BLOOD CELL (test code=RBC) 3.54 M/mm3 4.70-6.10 HEMOGLOBIN (test code=HGB) 10.4 G/DL 10.4-14.9 HEMATOCRIT (test code=HCT) 32.0 % 31.5-44.1 MEAN CELL VOLUME (test code=MCV) 90.4 Fl 84.5-98.6 MEAN CELL HGB (test code=MCH) 29.4 pg 27.0-34.2 MEAN CELL HGB CONCETRATION (test code=MCHC) 32.5 G/DL 31.5-34.0 RED CELL DISTRIBUTION WIDTH (test code=RDW) 15.6 SD 11.5-14.5 PLATELET COUNT (test code=PLT) 316.0 K/mm3 150-450 MEAN PLATELET VOLUME (test code=MPV) 10.40 fL 7.0-10.5 NEUTROPHIL % (test code=NT%) 79.4 % 40-76 LYMPHOCYTE % (test code=LY%) 12.1 % 20.5-51.1 MONOCYTE % (test code=MO%) 6.1 % 1.7-9.3 EOSINOPHIL % (test code=EO%) 2.3 % 0.0-6.0 BASOPHIL % (test code=BA%) 0.1 % 0.0-2.0 NEUTROPHIL # (test code=NT#) 6.00 K/mm3 1.8-7.6 LYMPHOCYTE # (test code=LY#) 0.9 K/mm3 0.6-3.2 MONOCYTE # (test code=MO#) 0.5 K/mm3 0.3-1.1 EOSINOPHIL # (test code=EO#) 0.2 K/mm3 0.0-0.4 BASOPHIL # (test code=BA#) 0.0 K/mm3 0.0-0.1 MANUAL DIFF REQUIRED (test code=MDIFF) NO DIFF/SCN CRITERIA TROPONIN I [id number] 09:53:00 Test Item Value Reference Range Comments TROPONIN I RAPID (test 0.01 ng/mL 0.00-0.08 - The use of serial sampling code=TROPIRAP) and testing protocol is a recommended practice- An elevated troponin level alone is often not sufficient for diagnosis of myocardial infarction. CHEMISTRY 8 [id number] 09:45:00 Test Item Value Reference Range Comments ISTAT-SODIUM (test code=NAP) mmol/L 135-146 ISTAT-POTASSIUM (test code=KP) mmol/L 3.5-4.9 ISTAT-CHLORIDE (test code=CLP) mmol/L 98-109 ISTAT-CARBON DIOXIDE (test code=ISTAT-CO2) mmol/L 24-29 ISTAT CALCIUM IONIZED (test code=ISTAT-PAU) mmol/L 1.12-1.32 ISTAT-GLUCOSE (test code=GLUP) mg/dL 70-105 ISTAT-BUN (test code=BUNP) mg/dL 8-26 BEDSIDE CREATININE (test code=CREATBED) mg/dL 0.6-1.3 GLOMERULAR FILTRATION RATE POC (test code=GFRBED) 51 39-90 CHEMISTRY 8 [id number] 09:45:00 Test Item Value Reference Range Comments ISTAT-SODIUM (test code=NAP) 136 mmol/L 135-146 ISTAT-POTASSIUM (test code=KP) 3.9 mmol/L 3.5-4.9 ISTAT-CHLORIDE (test code=CLP) 94 mmol/L 98-109 ISTAT-CARBON DIOXIDE (test code=ISTAT-CO2) 36 mmol/L 24-29 ISTAT CALCIUM IONIZED (test code=ISTAT-PAU) 1.46 mmol/L 1.12-1.32 ISTAT-GLUCOSE (test code=GLUP) 91 mg/dL 70-105 ISTAT-BUN (test code=BUNP) 17 mg/dL 8-26 BEDSIDE CREATININE (test code=CREATBED) 1.1 mg/dL 0.6-1.3 GLOMERULAR FILTRATION RATE POC (test 51 39-90 code=GFRBED) U/S, RENAL WITH [id number] 16:58:00Reason for exam:-> hypertensionShould this be performed at the bedside?->NoFINAL REPORT Renal ultrasound and Duplex Doppler ultrasound of kidneys dated Comment: Real-time transabdominal renal ultrasound was performed.Right kidney measures 9.6 x 4.6 x 4.3 cm. Left kidney measures 9.6 x 4.8 x 4.4 cm. Right renal cortex measures 0.8 cm. Left renal cortex measures 1.0 cm. Echogenicity of both renal parenchyma is minimally increased. No hydronephrosis , solid or cystic mass seen. The urinary [...] are 2.18, 2.22 and 2.12 m/sec2 respectively. Theresistive indices of the right upper, middle, and inferior intralobar arteries are 0.75, 0.74, and 0.71 respectively. The resistive indices of the left upper, middle, and inferior intralobar arteries are 0.75, 0.77, and 0.72 respectively. Impression: 1. Echogenic kidneys suggestive of renal parenchymal disease.2. Abnormal Doppler of the kidneys with elevated resistive indicis. Signed: [facility]emar Haley [facility] Verified Date/Time: 08/18/2018 16:58:13 Reading Location: [address] Radiology Reading Room TISSUE [id number] 14:09: 00Surgical Pathology Report Case: [id number] Authorizing Provider: Roddy Bernard Collected : 08/15/2018 1652 Ordering Location: [address] Received: 08/17/2018 0800 Service Pathologist: Joanne Gu MD Specimens: A) -Duodenal, ULCERS BX B) - Biopsy, Gastric, BX [...] METAPLASIA,DYSPLASIA OR MALIGNANCY NOTED Signing Pathologist Direct PhoneLine: [phone] signed by Joanne Gu MD on 08/18/2018 at 2:09 PMPreliminary result electronically signed by Joanne Gu MD on 08/17/2018 at 6:32 [id number] X 2;[id number]; 36508Etohsi bile duct stonesA. Duodenal ulcers biopsy; B. Biopsy, gastric biopsyThe case is received in two parts both labeled with the patient's name, Judy Calhoun, date of 1940 andaccession number [id number] which corresponds to accompanying requisition [...] x 0.1 x 0.1 cm to 0.5 x0.3 x 0.2 cm. The specimen is submitted in toto following filtration in cassette B1. RP/ plPERFORMEDThe interpretation of this case included the use of immunohistochemistry or special stains.WARTHIN-STARRY; HELICOBACTER PYLORIControl Slides Examined: In-house known positive controls were evaluated along with the test tissue. These control slides run alongside of the patients sample show appropriate staining. Internal positive and negative controls when available are evaluated Immunohistochemistry technical testing was performed at [facility] Pathology Laboratory where it wasdeveloped and its performance characteristics were determined. It [...] qualified to perform high complexity clinical laboratory testing.POCT-GLUCOSE [id number] 07:43:00 Test Item Value Reference Range Comments POC-GLUCOSE METER (BEAKER) 141 mg/dL 70-[address] [facility] [address] [facility] (test ozde=8470) [facility] [address] [id number] 06:53:00 Test Item Value Reference Range Comments MAGNESIUM (BEAKER) (test vyyh=710) 1.9 mg/dL 1.6-2.6 BASIC METABOLIC [id number] 06:53:00 Test Item Value Reference Range Comments SODIUM (BEAKER) (test 134 meq/L 136-145 xmhn=524) POTASSIUM (BEAKER) (test 4.2 meq/L 3.5-5.1 kgpt=320) CHLORIDE (BEAKER) (test 103 meq/L 98-107 osnv=595) CO2 (BEAKER) (test 28 meq/L 22-29 fshl=852) BLOOD UREA NITROGEN 12 mg/dL 7-21 (BEAKER) (test kbzk=163) CREATININE (BEAKER) (test 0.74 mg/dL 0.57-1.25 jrlk=885) GLUCOSE RANDOM (BEAKER) 124 mg/dL 70-105 (test uxjw=239) CALCIUM (BEAKER) (test 9.9 mg/dL 8.4-10.2 uvuw=220) EGFR (BEAKER) (test 76 mL/min/1.73 sq m ESTIMATED GFR IS NOT lhyz=9735) ACCURATE CREATININE CLEARANCE IN PREDICTING GLOMERULAR FILTRATION RATE. ESTIMATED GFR IS NOT APPLICABLE FOR DIALYSIS PATIENTS. HEPATIC FUNCTION [id number] 06:53:00 Test Item Value Reference Range Comments TOTAL PROTEIN (BEAKER) (test tzsm=677) 5.4 gm/dL 6.0-8.3 ALBUMIN (BEAKER) (test mgoi=1069) 2.9 g/dL 3.5-5.0 BILIRUBIN TOTAL (BEAKER) (test ylst=785) 0.4 mg/dL 0.2-1.2 BILIRUBIN DIRECT (BEAKER) (test thrn=983) 0.2 mg/dL 0.1-0.5 ALKALINE PHOSPHATASE (BEAKER) (test dxtt=988) 73 U/L 40-150 AST (SGOT) (BEAKER) (test wwrx=468) 20 U/L 5-34 ALT (SGPT) (BEAKER) (test vhxb=035) 17 U/L 6-55 CBC (HEMOGRAM ONLY)2018-08-18 06:22:00 Test Item Value Reference Range Comments WHITE BLOOD CELL COUNT (BEAKER) (test okfx=959) 11.7 K/ L 3.5-10.5 RED BLOOD CELL COUNT (BEAKER) (test snuo=148) 3.29 M/ L 3.93-5.22 HEMOGLOBIN (BEAKER) (test cqjh=780) 10.4 GM/DL 11.2-15.7 HEMATOCRIT (BEAKER) (test siil=531) 31.8 % 34.1-44.9 MEAN CORPUSCULAR VOLUME (BEAKER) (test crom=241) 96.7 fL 79.4-94.8 MEAN CORPUSCULAR HEMOGLOBIN (BEAKER) (test 31.6 pg 25.6-32.2 jrxs=297) MEAN CORPUSCULAR HEMOGLOBIN CONC (BEAKER) (test 32.7 GM/DL 32.2-35.5 oxpu=506) RED CELL DISTRIBUTION WIDTH (BEAKER) (test 16.6 % 11.7-14.4 dwjn=361) PLATELET COUNT (BEAKER) (test ctge=475) 175 K/CU MM 150-450 MEAN PLATELET VOLUME (BEAKER) (test idnl=284) 11.4 fL 9.4-12.3 NUCLEATED RED BLOOD CELLS (BEAKER) (test 0 /100 WBC 0-0 mjcp=952) POCT-GLUCOSE [id number] 23:08:00 Test Item Value Reference Range Comments POC-GLUCOSE METER (BEAKER) 163 mg/dL 70-110 TESTED AT [address] (test docy=7844) [place] [address] POCT-GLUCOSE [id number] 17:26:00 Test Item Value Reference Range Comments POC-GLUCOSE METER (BEAKER) 131 mg/dL 70-110 TESTED AT [address] (test knny=4120) [place] [id number] PET, CARDIAC PERFUSION MULTIPLE STUDIES, REST AND [id number] 15:22: 00Reason for exam:->Exclude ischemiaFINAL REPORT PROCEDURE: MYOCARDIAL PERFUSION PET IMAGING (Rest/Stress)CPT CODE: 05590 INDICATION: Define extent of known CAD, chest [...] prior study for comparison. Signed: Howard Bourgeois Verified Date/Time: 08/17/2018 15:22:38 Reading Location: [address] Reading Room POCT-GLUCOSE [id number] 13:27:00 Test Item Value Reference Range Comments POC-GLUCOSE METER (BEAKER) 130 mg/dL 70-110 [address] (test xdph=0226) [facility] [address] CBC (HEMOGRAM ONLY)2018-08-17 07:52:00 Test Item Value Reference Range Comments WHITE BLOOD CELL COUNT (BEAKER) (test qjxy=150) 10.6 K/ L 3.5-10.5 RED BLOOD CELL COUNT (BEAKER) (test tjan=342) 3.45 M/ L 3.93-5.22 HEMOGLOBIN (BEAKER) (test gftz=151) 10.8 GM/DL 11.2-15.7 HEMATOCRIT (BEAKER) (test kwbb=165) 32.9 % 34.1-44.9 MEAN CORPUSCULAR VOLUME (BEAKER) (test bgtm=570) 95.4 fL 79.4-94.8 MEAN CORPUSCULAR HEMOGLOBIN (BEAKER) (test 31.3 pg 25.6-32.2 fcyc=080) MEAN CORPUSCULAR HEMOGLOBIN CONC (BEAKER) (test 32.8 GM/DL 32.2-35.5 utuf=733) RED CELL DISTRIBUTION WIDTH (BEAKER) (test 16.1 % 11.7-14.4 cith=731) PLATELET COUNT (BEAKER) (test yjeu=035) 177 K/CU MM 150-450 MEAN PLATELET VOLUME (BEAKER) (test vlhs=238) 11.2 fL 9.4-12.3 NUCLEATED RED BLOOD CELLS (BEAKER) (test 0 /100 WBC 0-0 hydo=988) [id number] 07:43:00 Test Item Value Reference Range Comments MAGNESIUM (BEAKER) (test tyfg=414) 1.6 mg/dL 1.6-2.6 BASIC METABOLIC [id number] 07:43:00 Test Item Value Reference Range Comments SODIUM (BEAKER) (test 136 meq/L 136-145 xxsc=856) POTASSIUM (BEAKER) (test 3.6 meq/L 3.5-5.1 mmby=744) CHLORIDE (BEAKER) (test 102 meq/L 98-107 yqsc=258) CO2 (BEAKER) (test 29 meq/L 22-29 lffl=329) BLOOD UREA NITROGEN 10 mg/dL 7-21 (BEAKER) (test zpet=176) CREATININE (BEAKER) (test 0.74 mg/dL 0.57-1.25 xsre=239) GLUCOSE RANDOM (BEAKER) 134 mg/dL 70-105 (test kuyf=236) CALCIUM (BEAKER) (test 9.9 mg/dL 8.4-10.2 uqrv=308) EGFR (BEAKER) (test 76 mL/min/1.73 sq m ESTIMATED GFR IS NOT bsfd=0873) ACCURATE CREATININE CLEARANCE IN PREDICTING GLOMERULAR FILTRATION RATE. ESTIMATED GFR IS NOT APPLICABLE FOR DIALYSIS PATIENTS. HEPATIC FUNCTION [id number] 07:43:00 Test Item Value Reference Range Comments TOTAL PROTEIN (BEAKER) (test njkx=554) 5.2 gm/dL 6.0-8.3 ALBUMIN (BEAKER) (test rzuq=8971) 2.8 g/dL 3.5-5.0 BILIRUBIN TOTAL (BEAKER) (test uriz=998) 0.5 mg/dL 0.2-1.2 BILIRUBIN DIRECT (BEAKER) (test crjh=434) 0.3 mg/dL 0.1-0.5 ALKALINE PHOSPHATASE (BEAKER) (test axhv=187) 76 U/L 40-150 AST (SGOT) (BEAKER) (test ushx=479) 21 U/L 5-34 ALT (SGPT) (BEAKER) (test ejbu=788) 17 U/L 6-55 POCT-GLUCOSE [id number] 07:24:00 Test Item Value Reference Range Comments POC-GLUCOSE METER (BEAKER) 144 mg/dL 70-110 TESTED AT [address] (test jxtk=6477) [place] [id number] POCT-GLUCOSE [id number] 23:39:00 Test Item Value Reference Range Comments POC-GLUCOSE METER (BEAKER) 159 mg/dL 70-110 TESTED AT [address] (test hnww=4048) [facility] [id number] POCT-GLUCOSE [id number] 17:20:00 Test Item Value Reference Range Comments POC-GLUCOSE METER (BEAKER) 168 mg/dL 70-110 TESTED AT [address] (test pmad=2525) [facility] [id number] COMPREHENSIVE METABOLIC [id number] 13:35:00 Test Item Value Reference Range Comments TOTAL PROTEIN (BEAKER) 5.4 gm/dL 6.0-8.3 (test ldep=748) ALBUMIN (BEAKER) (test 2.9 g/dL 3.5-5.0 bcwx=7381) ALKALINE PHOSPHATASE 86 U/L 40-150 (BEAKER) (test otlp=527) BILIRUBIN TOTAL (BEAKER) 0.4 mg/dL 0.2-1.2 (test qwgi=618) SODIUM (BEAKER) (test 135 meq/L 136-145 lmsf=885) POTASSIUM (BEAKER) (test 3.7 meq/L 3.5-5.1 oyis=131) CHLORIDE (BEAKER) (test 102 meq/L 98-107 idvf=996) CO2 (BEAKER) (test 28 meq/L 22-29 mnpo=113) BLOOD UREA NITROGEN 10 mg/dL 7-21 (BEAKER) (test wazo=345) CREATININE (BEAKER) (test 0.83 mg/dL 0.57-1.25 qlrt=476) GLUCOSE RANDOM (BEAKER) 150 mg/dL 70-105 (test ifin=857) CALCIUM (BEAKER) (test 10.0 mg/dL 8.4-10.2 ymno=161) AST (SGOT) (BEAKER) (test 25 U/L 5-34 rdrx=061) ALT (SGPT) (BEAKER) (test 23 U/L 6-55 qupf=217) EGFR (BEAKER) (test 66 mL/min/1.73 sq m ESTIMATED GFR IS NOT fuoz=9640) ACCURATE CREATININE CLEARANCE IN PREDICTING GLOMERULAR FILTRATION RATE. ESTIMATED GFR IS NOT APPLICABLE FOR DIALYSIS PATIENTS. CBC W/PLT COUNT & AUTO [id number] 13:14:00 Test Item Value Reference Range Comments WHITE BLOOD CELL COUNT (BEAKER) (test pxep=746) 12.9 K/ L 3.5-10.5 RED BLOOD CELL COUNT (BEAKER) (test kfwr=492) 3.74 M/ L 3.93-5.22 HEMOGLOBIN (BEAKER) (test nwkt=168) 11.6 GM/DL 11.2-15.7 HEMATOCRIT (BEAKER) (test mvcd=669) 35.0 % 34.1-44.9 MEAN CORPUSCULAR VOLUME (BEAKER) (test snwp=303) 93.6 fL 79.4-94.8 MEAN CORPUSCULAR HEMOGLOBIN (BEAKER) (test 31.0 pg 25.6-32.2 nqwl=136) MEAN CORPUSCULAR HEMOGLOBIN CONC (BEAKER) (test 33.1 GM/DL 32.2-35.5 lwig=793) RED CELL DISTRIBUTION WIDTH (BEAKER) (test 16.0 % 11.7-14.4 geem=531) PLATELET COUNT (BEAKER) (test pfzu=023) 165 K/CU MM 150-450 MEAN PLATELET VOLUME (BEAKER) (test dots=819) 10.1 fL 9.4-12.3 NUCLEATED RED BLOOD CELLS (BEAKER) (test 0 /100 WBC 0-0 fctx=375) NEUTROPHILS RELATIVE PERCENT (BEAKER) (test 84 % qlbf=470) LYMPHOCYTES RELATIVE PERCENT (BEAKER) (test 7 % qegy=743) MONOCYTES RELATIVE PERCENT (BEAKER) (test 7 % dtbr=003) EOSINOPHILS RELATIVE PERCENT (BEAKER) (test 2 % kwaf=413) BASOPHILS RELATIVE PERCENT (BEAKER) (test 0 % algo=469) NEUTROPHILS ABSOLUTE COUNT (BEAKER) (test 10.89 K/ L 1.56-6.13 efme=988) LYMPHOCYTES ABSOLUTE COUNT (BEAKER) (test 0.90 K/ L 1.18-3.74 khem=569) MONOCYTES ABSOLUTE COUNT (BEAKER) (test 0.84 K/ L 0.24-0.36 ffyd=483) EOSINOPHILS ABSOLUTE COUNT (BEAKER) (test 0.20 K/ L 0.04-0.36 mrtt=672) BASOPHILS ABSOLUTE COUNT (BEAKER) (test 0.05 K/ L 0.01-0.08 qhwz=779) IMMATURE GRANULOCYTES-RELATIVE PERCENT (BEAKER) 1 % 0-1 (test vhtg=0570) POCT-GLUCOSE [id number] 12:12:00 Test Item Value Reference Range Comments POC-GLUCOSE METER (BEAKER) 154 mg/dL 70-[address] [facility] [address] [facility] (test nwyh=4447) [facility] [address] BLOOD [id number] 08:00:00 Test Item Value Reference Range Comments CULTURE (BEAKER) (test dhfg=7805) No growth in 5 days BLOOD [id number] 08:00:00 Test Item Value Reference Range Comments CULTURE (BEAKER) (test ygbw=2223) No growth in 5 days POCT-GLUCOSE [id number] 07:45:00 Test Item Value Reference Range Comments POC-GLUCOSE METER (BEAKER) 115 mg/dL 70-110 TESTED AT [address] (test rdnz=2978) [place] [id number] POCT-GLUCOSE [id number] 23:02:00 Test Item Value Reference Range Comments POC-GLUCOSE METER (BEAKER) 90 mg/dL 70-110 TESTED AT [address] (test rmnl=6190) [place] [id number] [place], [id number] 17:37:00INTRA OP IMAGINGReason for exam:->CBD STONESFINAL REPORT Fluoroscopy, less than 1 hour History:ERCP Comparison: none Findings:Fluoroscopic assistance was provided during ERCP. Fluoroscopic images taken were interpreted bythe referring clinician. Please see separate procedure note for full details. Total Fluoroscopy time: 79.2 seconds Number of fluoroscopic images obtained: Four Impression:Fluoroscopy assistance as described above. Signed: Enio Ley MDReport Verified Date/ Time: 08/15/2018 17:37:26 Reading Location: [facility] [id number] [facility] Consult Reading Room POCT-GLUCOSE [id number] 17:35:00 Test Item Value Reference Range Comments POC-GLUCOSE METER (BEAKER) 180 mg/dL 70-110 TESTED AT [address] (test nydh=3396) [place] [address] POCT-GLUCOSE [id number] 07:57:00 Test Item Value Reference Range Comments POC-GLUCOSE METER (BEAKER) 129 mg/dL 70-110 TESTED AT [address] (test bxdp=5801) [place] [address] [id number] 06:01:00 Test Item Value Reference Range Comments MAGNESIUM (BEAKER) (test tzui=405) 1.6 mg/dL 1.6-2.6 BASIC METABOLIC [id number] 06:01:00 Test Item Value Reference Range Comments SODIUM (BEAKER) (test 138 meq/L 136-145 eskl=337) POTASSIUM (BEAKER) (test 3.8 meq/L 3.5-5.1 zbth=029) CHLORIDE (BEAKER) (test 108 meq/L 98-107 fslj=090) CO2 (BEAKER) (test 25 meq/L 22-29 fjgi=205) BLOOD UREA NITROGEN 7 mg/dL 7-21 (BEAKER) (test ettb=386) CREATININE (BEAKER) (test 0.77 mg/dL 0.57-1.25 tjvq=219) GLUCOSE RANDOM (BEAKER) 123 mg/dL 70-105 (test elcr=313) CALCIUM (BEAKER) (test 10.0 mg/dL 8.4-10.2 wwzy=145) EGFR (BEAKER) (test 72 mL/min/1.73 sq m ESTIMATED GFR IS NOT cvml=3956) ACCURATE CREATININE CLEARANCE IN PREDICTING GLOMERULAR FILTRATION RATE. ESTIMATED GFR IS NOT APPLICABLE FOR DIALYSIS PATIENTS. HEPATIC FUNCTION [id number] 06:01:00 Test Item Value Reference Range Comments TOTAL PROTEIN (BEAKER) (test spod=212) 5.4 gm/dL 6.0-8.3 ALBUMIN (BEAKER) (test uwan=2000) 2.9 g/dL 3.5-5.0 BILIRUBIN TOTAL (BEAKER) (test xhsf=658) 0.5 mg/dL 0.2-1.2 BILIRUBIN DIRECT (BEAKER) (test hflr=484) 0.3 mg/dL 0.1-0.5 ALKALINE PHOSPHATASE (BEAKER) (test pjpa=499) 92 U/L 40-150 AST (SGOT) (BEAKER) (test nqcy=877) 33 U/L 5-34 ALT (SGPT) (BEAKER) (test nmeu=414) 30 U/L 6-55 CBC (HEMOGRAM ONLY)2018-08-15 04:44:00 Test Item Value Reference Range Comments WHITE BLOOD CELL COUNT (BEAKER) (test zwii=446) 11.8 K/ L 3.5-10.5 RED BLOOD CELL COUNT (BEAKER) (test oppy=703) 3.97 M/ L 3.93-5.22 HEMOGLOBIN (BEAKER) (test dtps=786) 12.6 GM/DL 11.2-15.7 HEMATOCRIT (BEAKER) (test bgqr=265) 37.4 % 34.1-44.9 MEAN CORPUSCULAR VOLUME (BEAKER) (test gliv=149) 94.2 fL 79.4-94.8 MEAN CORPUSCULAR HEMOGLOBIN (BEAKER) (test 31.7 pg 25.6-32.2 zbld=866) MEAN CORPUSCULAR HEMOGLOBIN CONC (BEAKER) (test 33.7 GM/DL 32.2-35.5 qsdp=250) RED CELL DISTRIBUTION WIDTH (BEAKER) (test 15.8 % 11.7-14.4 apnb=072) PLATELET COUNT (BEAKER) (test sbdm=597) 189 K/CU MM 150-450 MEAN PLATELET VOLUME (BEAKER) (test qidy=786) 10.7 fL 9.4-12.3 NUCLEATED RED BLOOD CELLS (BEAKER) (test 0 /100 WBC 0-0 stoe=074) POCT-GLUCOSE [id number] 23:38:00 Test Item Value Reference Range Comments POC-GLUCOSE METER (BEAKER) 137 mg/dL 70-110 TESTED AT [address] (test efxv=1071) [facility] [address] POCT-GLUCOSE [id number] 12:13:00 Test Item Value Reference Range Comments POC-GLUCOSE METER (BEAKER) 159 mg/dL 70-110 TESTED AT [address] (test chpa=8286) [facility] [address] POCT-GLUCOSE [id number] 08:11:00 Test Item Value Reference Range Comments POC-GLUCOSE METER (BEAKER) 138 mg/dL 70-110 TESTED AT [address] (test dgxj=5712) [facility] [address] [id number] 06:01:00 Test Item Value Reference Range Comments MAGNESIUM (BEAKER) (test ladw=813) 1.7 mg/dL 1.6-2.6 BASIC METABOLIC [id number] 06:01:00 Test Item Value Reference Range Comments SODIUM (BEAKER) (test 138 meq/L 136-145 ddvn=336) POTASSIUM (BEAKER) (test 3.8 meq/L 3.5-5.1 kftr=183) CHLORIDE (BEAKER) (test 109 meq/L 98-107 dyyn=321) CO2 (BEAKER) (test 26 meq/L 22-29 brge=801) BLOOD UREA NITROGEN 10 mg/dL 7-21 (BEAKER) (test oeje=021) CREATININE (BEAKER) (test 0.80 mg/dL 0.57-1.25 zebo=479) GLUCOSE RANDOM (BEAKER) 106 mg/dL 70-105 (test zmqq=949) CALCIUM (BEAKER) (test 9.4 mg/dL 8.4-10.2 ieyc=424) EGFR (BEAKER) (test 69 mL/min/1.73 sq m ESTIMATED GFR IS NOT yjuf=2511) ACCURATE CREATININE CLEARANCE IN PREDICTING GLOMERULAR FILTRATION RATE. ESTIMATED GFR IS NOT APPLICABLE FOR DIALYSIS PATIENTS. HEPATIC FUNCTION [id number] 06:01:00 Test Item Value Reference Range Comments TOTAL PROTEIN (BEAKER) (test vami=637) 5.4 gm/dL 6.0-8.3 ALBUMIN (BEAKER) (test gzws=6652) 2.9 g/dL 3.5-5.0 BILIRUBIN TOTAL (BEAKER) (test whkz=839) 0.5 mg/dL 0.2-1.2 BILIRUBIN DIRECT (BEAKER) (test ttpq=102) 0.4 mg/dL 0.1-0.5 ALKALINE PHOSPHATASE (BEAKER) (test vxge=963) 105 U/L 40-150 AST (SGOT) (BEAKER) (test nxjs=507) 33 U/L 5-34 ALT (SGPT) (BEAKER) (test kepz=756) 31 U/L 6-55 CBC (HEMOGRAM ONLY)2018-08-14 05:10:00 Test Item Value Reference Range Comments WHITE BLOOD CELL COUNT (BEAKER) (test ejvw=019) 10.6 K/ L 3.5-10.5 RED BLOOD CELL COUNT (BEAKER) (test mvkd=196) 3.87 M/ L 3.93-5.22 HEMOGLOBIN (BEAKER) (test byps=967) 12.0 GM/DL 11.2-15.7 HEMATOCRIT (BEAKER) (test veqf=089) 36.9 % 34.1-44.9 MEAN CORPUSCULAR VOLUME (BEAKER) (test yztm=304) 95.3 fL 79.4-94.8 MEAN CORPUSCULAR HEMOGLOBIN (BEAKER) (test 31.0 pg 25.6-32.2 avvw=358) MEAN CORPUSCULAR HEMOGLOBIN CONC (BEAKER) (test 32.5 GM/DL 32.2-35.5 ytqz=298) RED CELL DISTRIBUTION WIDTH (BEAKER) (test 15.7 % 11.7-14.4 gikq=291) PLATELET COUNT (BEAKER) (test klpm=714) 158 K/CU MM 150-450 MEAN PLATELET VOLUME (BEAKER) (test dqgd=502) 11.0 fL 9.4-12.3 NUCLEATED RED BLOOD CELLS (BEAKER) (test 0 /100 WBC 0-0 zpiu=680) POCT-GLUCOSE [id number] 23:53:00 Test Item Value Reference Range Comments POC-GLUCOSE METER (BEAKER) 115 mg/dL 70-110 TESTED AT [address] (test wgts=7733) [place] [address] POCT-GLUCOSE [id number] 16:48:00 Test Item Value Reference Range Comments POC-GLUCOSE METER (BEAKER) 83 mg/dL 70-110 TESTED AT [address] (test adka=6818) [place] [address] POCT-GLUCOSE [id number] 13:19:00 Test Item Value Reference Range Comments POC-GLUCOSE METER (BEAKER) 102 mg/dL 70-110 TESTED AT [address] (test jknm=3099) [place] [id number] POCT-GLUCOSE [id number] 12:02:00 Test Item Value Reference Range Comments POC-GLUCOSE METER (BEAKER) 95 mg/dL 70-110 TESTED AT [address] (test nion=8059) [place] [id number] POCT-GLUCOSE [id number] 07:22:00 Test Item Value Reference Range Comments POC-GLUCOSE METER (BEAKER) 109 mg/dL 70-110 TESTED AT [address] (test qgmz=1945) [place] [address] [id number] 04:31:00 Test Item Value Reference Range Comments MAGNESIUM (BEAKER) (test 1.7 mg/dL 1.6-2.6 Specimen slightly hemolyzed vzil=306) BASIC METABOLIC [id number] 04:31:00 Test Item Value Reference Range Comments SODIUM (BEAKER) (test 140 meq/L 136-145 sigc=717) POTASSIUM (BEAKER) (test 3.6 meq/L 3.5-5.1 Specimen slightly lqyy=791) hemolyzed CHLORIDE (BEAKER) (test 111 meq/L 98-107 kfnp=038) CO2 (BEAKER) (test 24 meq/L 22-29 szbg=655) BLOOD UREA NITROGEN 12 mg/dL 7-21 (BEAKER) (test dlrl=131) CREATININE (BEAKER) (test 0.79 mg/dL 0.57-1.25 Specimen slightly wvmw=336) hemolyzed GLUCOSE RANDOM (BEAKER) 110 mg/dL 70-105 (test rzjj=817) CALCIUM (BEAKER) (test 9.5 mg/dL 8.4-10.2 ebur=567) EGFR (BEAKER) (test 70 mL/min/1.73 sq m ESTIMATED GFR IS NOT cgjk=6920) ACCURATE CREATININE CLEARANCE IN PREDICTING GLOMERULAR FILTRATION RATE. ESTIMATED GFR IS NOT APPLICABLE FOR DIALYSIS PATIENTS. HEPATIC FUNCTION [id number] 04:31:00 Test Item Value Reference Range Comments TOTAL PROTEIN (BEAKER) (test 5.2 gm/dL 6.0-8.3 Specimen slightly hemolyzed fbiy=860) ALBUMIN (BEAKER) (test 2.7 g/dL 3.5-5.0 Specimen slightly hemolyzed zbhq=8212) BILIRUBIN TOTAL (BEAKER) (test 0.7 mg/dL 0.2-1.2 Specimen slightly hemolyzed anxq=349) BILIRUBIN DIRECT (BEAKER) (test 0.3 mg/dL 0.1-0.5 Specimen slightly hemolyzed fril=575) ALKALINE PHOSPHATASE (BEAKER) 118 U/L 40-150 (test wryc=637) AST (SGOT) (BEAKER) (test 52 U/L 5-34 Specimen slightly hemolyzed tqwb=259) ALT (SGPT) (BEAKER) (test 43 U/L 6-55 Specimen slightly hemolyzed vwen=467) CBC (HEMOGRAM ONLY)2018-08-13 03:56:00 Test Item Value Reference Range Comments WHITE BLOOD CELL COUNT (BEAKER) (test vkrg=181) 9.7 K/ L 3.5-10.5 RED BLOOD CELL COUNT (BEAKER) (test xjnz=705) 3.51 M/ L 3.93-5.22 HEMOGLOBIN (BEAKER) (test fsis=605) 11.0 GM/DL 11.2-15.7 HEMATOCRIT (BEAKER) (test dlob=177) 33.1 % 34.1-44.9 MEAN CORPUSCULAR VOLUME (BEAKER) (test tvrq=900) 94.3 fL 79.4-94.8 MEAN CORPUSCULAR HEMOGLOBIN (BEAKER) (test 31.3 pg 25.6-32.2 lygt=888) MEAN CORPUSCULAR HEMOGLOBIN CONC (BEAKER) (test 33.2 GM/DL 32.2-35.5 lmio=473) RED CELL DISTRIBUTION WIDTH (BEAKER) (test 15.3 % 11.7-14.4 pkei=853) PLATELET COUNT (BEAKER) (test rkwg=235) 128 K/CU MM 150-450 MEAN PLATELET VOLUME (BEAKER) (test rdax=293) 11.1 fL 9.4-12.3 NUCLEATED RED BLOOD CELLS (BEAKER) (test 0 /100 WBC 0-0 tqie=878) POCT-GLUCOSE [id number] 22:11:00 Test Item Value Reference Range Comments POC-GLUCOSE METER (BEAKER) 138 mg/dL 70-110 TESTED AT [place] [id number] [facility] (test kgtr=9527) [facility] [address] POCT-GLUCOSE [id number] 16:28:00 Test Item Value Reference Range Comments POC-GLUCOSE METER (BEAKER) 155 mg/dL 70-110 TESTED AT [address] (test dbsd=9766) [facility] [address] [address], [id number] 13:32:00FINAL REPORT CT abdomen and pelvis without [...] right greater than left. Signed: Enio Ley Verified Date/Time: 08/12/2018 13:32:12 Reading Location: [facility] Diagnostic Imaging Reading Room - [place] [address], BRAIN, WITHOUT [id number] 12:57:00FINAL REPORT CT, BRAIN, WITHOUT CONTRAST CLINICAL [...] Motta Verified Date/Time: 2018 12:57:37 Reading Location: [facility] Radiology Reading Room POCT -GLUCOSE [id number] 12:48:00 Test Item Value Reference Range Comments POC-GLUCOSE METER (BEAKER) 156 mg/dL 70-110 TESTED AT [address] (test kqcy=4876) [place] [address] POCT-GLUCOSE [id number] 07:16:00 Test Item Value Reference Range Comments POC-GLUCOSE METER (BEAKER) 157 mg/dL 70-[address] [facility] [address] [facility] (test ssta=8951) [place] [address] VITAMIN [id number] 05:53:00 Test Item Value Reference Range Comments VITAMIN B12 (BEAKER) (test bhpm=037) 1063 pg/mL 213-816 [id number] 05:27:00 Test Item Value Reference Range Comments MAGNESIUM (BEAKER) (test qnln=261) 1.7 mg/dL 1.6-2.6 BASIC METABOLIC [id number] 05:27:00 Test Item Value Reference Range Comments SODIUM (BEAKER) (test 140 meq/L 136-145 trxi=915) POTASSIUM (BEAKER) (test 3.6 meq/L 3.5-5.1 sokf=123) CHLORIDE (BEAKER) (test 109 meq/L 98-107 chrs=006) CO2 (BEAKER) (test 27 meq/L 22-29 ztbb=200) BLOOD UREA NITROGEN 16 mg/dL 7-21 (BEAKER) (test zplb=706) CREATININE (BEAKER) (test 0.88 mg/dL 0.57-1.25 nfpg=838) GLUCOSE RANDOM (BEAKER) 152 mg/dL 70-105 (test tymt=576) CALCIUM (BEAKER) (test 9.7 mg/dL 8.4-10.2 pifr=978) EGFR (BEAKER) (test 62 mL/min/1.73 sq m ESTIMATED GFR IS NOT dlfk=5531) ACCURATE CREATININE CLEARANCE IN PREDICTING GLOMERULAR FILTRATION RATE. ESTIMATED GFR IS NOT APPLICABLE FOR DIALYSIS PATIENTS. HEPATIC FUNCTION [id number] 05:27:00 Test Item Value Reference Range Comments TOTAL PROTEIN (BEAKER) (test axgw=478) 5.9 gm/dL 6.0-8.3 ALBUMIN (BEAKER) (test sxnw=3460) 3.2 g/dL 3.5-5.0 BILIRUBIN TOTAL (BEAKER) (test jvml=068) 1.1 mg/dL 0.2-1.2 BILIRUBIN DIRECT (BEAKER) (test ewee=169) 0.7 mg/dL 0.1-0.5 ALKALINE PHOSPHATASE (BEAKER) (test hfen=888) 77 U/L 40-150 AST (SGOT) (BEAKER) (test coop=035) 26 U/L 5-34 ALT (SGPT) (BEAKER) (test uigr=795) 19 U/L 6-55 LACTIC ACID, [id number] 05:12:00 Test Item Value Reference Range Comments LACTATE BLOOD VENOUS (2) 0.9 mmol/L 0.5-2.2 Specimen slightly hemolyzed (BEAKER) (test uwzz=6665) CBC (HEMOGRAM ONLY)2018-08-12 05:00:00 Test Item Value Reference Range Comments WHITE BLOOD CELL COUNT (BEAKER) (test infp=939) 12.8 K/ L 3.5-10.5 RED BLOOD CELL COUNT (BEAKER) (test umoz=928) 3.82 M/ L 3.93-5.22 HEMOGLOBIN (BEAKER) (test swwa=081) 12.1 GM/DL 11.2-15.7 HEMATOCRIT (BEAKER) (test efdp=911) 36.4 % 34.1-44.9 MEAN CORPUSCULAR VOLUME (BEAKER) (test hxcy=813) 95.3 fL 79.4-94.8 MEAN CORPUSCULAR HEMOGLOBIN (BEAKER) (test 31.7 pg 25.6-32.2 gsvq=058) MEAN CORPUSCULAR HEMOGLOBIN CONC (BEAKER) (test 33.2 GM/DL 32.2-35.5 tsuq=418) RED CELL DISTRIBUTION WIDTH (BEAKER) (test 15.3 % 11.7-14.4 oqlt=495) PLATELET COUNT (BEAKER) (test wbdh=929) 154 K/CU MM 150-450 MEAN PLATELET VOLUME (BEAKER) (test zvgr=631) 11.0 fL 9.4-12.3 NUCLEATED RED BLOOD CELLS (BEAKER) (test 0 /100 WBC 0-0 tkpu=813) TROPONIN [id number] 01:40:00 Test Item Value Reference Range Comments TROPONIN I (BEAKER) (test poms=400) 0.02 ng/mL 0.00-0.03 Troponin I (TnI) levels [...] acidosis, acute neurological disease, and persistent tachyarrhythmia.POCT-GLUCOSE [id number] 22:32:00 Test Item Value Reference Range Comments POC-GLUCOSE METER (BEAKER) 154 mg/dL 70-110 TESTED AT [address] (test xoev=4056) [place] [address] [id number] 22:27:00 Test Item Value Reference Range Comments PROCALCITONIN (BEAKER) (test xqbn=3456) < ng/mL <0.05 SEPSIS RISK (ng/mL)Low: 0.05-0.50Intermediate: 0.51-2.00High: & gt;=2.01TROPONIN [id number] 18:31:00 Test Item Value Reference Range Comments TROPONIN I (BEAKER) (test opfl=976) 0.01 ng/mL 0.00-0.03 Troponin I (TnI) levels [...] acidosis, acute neurological disease, and persistent tachyarrhythmia.POCT-GLUCOSE [id number] 12:21:00 Test Item Value Reference Range Comments POC-GLUCOSE METER (BEAKER) 178 mg/dL 70-110 TESTED AT [address] (test tfyl=1051) [place] [address] RAD, ABDOMEN/KUB, 1 VIEW [id number] 11:42:00Reason for exam:->abdominal painShould this be performed [...] Verified Date/ Time: 08/11/2018 11:42:12 Reading Location: [facility] Radiology Reading Room POCT -BLOOD GASES, [id number] 09:41:00 Test Item Value Reference Range Comments TEMP, CELSIUS-POC (BEAKER) 36.9 (test kyuv=1050) FIO2-POC (BEAKER) (test 28 TESTED AT [place] [address] [address] ypfg=0452) [place] [id number] PH, VENOUS-POC (BEAKER) 7.344 7.320-7.420 (test ucxq=2263) PCO2, VENOUS-POC (BEAKER) 48.8 mm Hg 41.0-51.0 (test wpxw=2192) PO2, VENOUS-POC (BEAKER) 36.0 mm Hg 25.0-40.0 (test djpu=6607) SO2, VENOUS-POC (BEAKER) 66.0 % 40.0-70.0 (test curn=7788) HCO3, VENOUS-POC (BEAKER) 26.6 meq/L 21.0-29.0 (test sujn=7438) BASE EXCESS, VENOUS-POC 1.0 meq/L -2.0-3.0 (BEAKER) (test ejvv=8761) [id number] 09:41:00 Test Item Value Reference Range Comments POC-SODIUM (BEAKER) (test 142 meq/L 135-148 TESTED AT [place] [address] [address] iboz=5400) [place] [address] [id number] 09:41:00 Test Item Value Reference Range Comments POC-POTASSIUM (BEAKER) (test 3.6 meq/L 3.6-5.5 TESTED AT [place] [address] [address] omlw=7689) [place] [address] [id number] 09:41:00 Test Item Value Reference Range Comments POC-GLUCOSE (BEAKER) (test 165 mg/dL 70-110 TESTED AT [place] [address] [address] yxnz=5722) [place] [address] POCT-CALCIUM [id number] 09:41:00 Test Item Value Reference Range Comments POC-CALCIUM IONIZED (BEAKER) 1.50 mmol/L 1.12-1.27 TESTED AT [address] (test pdtj=3483) [place] [address] [id number] 09:41:00 Test Item Value Reference Range Comments POC-HEMATOCRIT (BEAKER) (test 34 % 36-45 TESTED AT [address] flhs=6134) [place] [address] [id number] 09:41:00 Test Item Value Reference Range Comments POC-HEMOGLOBIN (BEAKER) 11.6 g/dL 12.0-15.0 TESTED AT [address] (test gplo=9580) [place] [address]TESTED AT [place] [address] POCT-LACTIC ACID, [id number] 09:41:00 Test Item Value Reference Range Comments POC-LACTIC ACID, VENOUS 0.9 mmol/L 0.9-1.7 TESTED AT [address] (BEAKER) (test gpxr=0430) [place] [address] URINALYSIS W/ REFLEX URINE [id number] 09:28:00 Test Item Value Reference Range Comments COLOR (BEAKER) (test pymm=913) Yellow CLARITY (BEAKER) (test ypyr=963) Clear SPECIFIC GRAVITY UA (BEAKER) (test jcfy=177) 1.012 1.001-1.035 PH UA (BEAKER) (test ytjg=802) 6.0 5.0-8.0 PROTEIN UA (BEAKER) (test dsic=222) 10 mg/dL Negative GLUCOSE UA (BEAKER) (test mdja=617) 50 mg/dL Negative KETONES UA (BEAKER) (test cefb=008) 20 mg/dL Negative BILIRUBIN UA (BEAKER) (test oimv=672) Negative Negative BLOOD UA (BEAKER) (test dvam=609) Moderate Negative NITRITE UA (BEAKER) (test dfup=118) Negative Negative LEUKOCYTE ESTERASE UA (BEAKER) (test xpwu=302) Negative Negative UROBILINOGEN UA (BEAKER) (test bjky=245) 0.2 mg/dL 0.2-1.0 RBC UA (BEAKER) (test wrna=574) 105 /HPF WBC UA (BEAKER) (test vnhm=782) 2 /HPF SOURCE(BEAKER) (test oklk=3220) POCT-GLUCOSE [id number] 09:17:00 Test Item Value Reference Range Comments POC-GLUCOSE METER (BEAKER) 172 mg/dL 70-[address] [facility] [address] [facility] (test ufpq=0771) [facility] [address] [id number] 06:43:00 Test Item Value Reference Range Comments MAGNESIUM (BEAKER) (test ssbb=454) 1.7 mg/dL 1.6-2.6 BASIC METABOLIC [id number] 06:43:00 Test Item Value Reference Range Comments SODIUM (BEAKER) (test 140 meq/L 136-145 aqtd=005) POTASSIUM (BEAKER) (test 3.7 meq/L 3.5-5.1 bodx=795) CHLORIDE (BEAKER) (test 110 meq/L 98-107 kmwt=850) CO2 (BEAKER) (test 25 meq/L 22-29 mksj=461) BLOOD UREA NITROGEN 16 mg/dL 7-21 (BEAKER) (test uacu=364) CREATININE (BEAKER) (test 0.78 mg/dL 0.57-1.25 otmy=872) GLUCOSE RANDOM (BEAKER) 163 mg/dL 70-105 (test ikfs=986) CALCIUM (BEAKER) (test 10.3 mg/dL 8.4-10.2 zyoe=774) EGFR (BEAKER) (test 71 mL/min/1.73 sq m ESTIMATED GFR IS NOT jxxk=0220) ACCURATE CREATININE CLEARANCE IN PREDICTING GLOMERULAR FILTRATION RATE. ESTIMATED GFR IS NOT APPLICABLE FOR DIALYSIS PATIENTS. HEPATIC FUNCTION [id number] 06:43:00 Test Item Value Reference Range Comments TOTAL PROTEIN (BEAKER) (test jyct=616) 5.8 gm/dL 6.0-8.3 ALBUMIN (BEAKER) (test mjgi=2580) 3.2 g/dL 3.5-5.0 BILIRUBIN TOTAL (BEAKER) (test zeec=422) 1.1 mg/dL 0.2-1.2 BILIRUBIN DIRECT (BEAKER) (test fwgw=636) 0.7 mg/dL 0.1-0.5 ALKALINE PHOSPHATASE (BEAKER) (test lwkd=617) 76 U/L 40-150 AST (SGOT) (BEAKER) (test lghb=670) 23 U/L 5-34 ALT (SGPT) (BEAKER) (test gbig=871) 20 U/L 6-55 CBC (HEMOGRAM ONLY)2018-08-11 05:56:00 Test Item Value Reference Range Comments WHITE BLOOD CELL COUNT (BEAKER) (test wdxn=295) 15.2 K/ L 3.5-10.5 RED BLOOD CELL COUNT (BEAKER) (test rqfk=176) 3.68 M/ L 3.93-5.22 HEMOGLOBIN (BEAKER) (test cjiq=074) 11.5 GM/DL 11.2-15.7 HEMATOCRIT (BEAKER) (test fdqd=673) 35.4 % 34.1-44.9 MEAN CORPUSCULAR VOLUME (BEAKER) (test kwnj=797) 96.2 fL 79.4-94.8 MEAN CORPUSCULAR HEMOGLOBIN (BEAKER) (test 31.3 pg 25.6-32.2 pygh=595) MEAN CORPUSCULAR HEMOGLOBIN CONC (BEAKER) (test 32.5 GM/DL 32.2-35.5 dwvd=307) RED CELL DISTRIBUTION WIDTH (BEAKER) (test 15.8 % 11.7-14.4 itbe=668) PLATELET COUNT (BEAKER) (test vkew=644) 139 K/CU MM 150-450 MEAN PLATELET VOLUME (BEAKER) (test alou=814) 11.3 fL 9.4-12.3 NUCLEATED RED BLOOD CELLS (BEAKER) (test 0 /100 WBC 0-0 azho=392) TROPONIN [id number] 01:18:00 Test Item Value Reference Range Comments TROPONIN I (BEAKER) (test kgxe=705) 0.04 ng/mL 0.00-0.03 Troponin I (TnI) levels [...] failure, acidosis, acute neurological disease, and persistent tachyarrhythmia.[id number] 01:13:00 Test Item Value Reference Range Comments MAGNESIUM (BEAKER) (test ogcd=532) 1.6 mg/dL 1.6-2.6 BASIC METABOLIC [id number] 01:13:00 Test Item Value Reference Range Comments SODIUM (BEAKER) (test 138 meq/L 136-145 uejo=901) POTASSIUM (BEAKER) (test 3.7 meq/L 3.5-5.1 rjke=961) CHLORIDE (BEAKER) (test 109 meq/L 98-107 vydc=837) CO2 (BEAKER) (test 26 meq/L 22-29 ziey=306) BLOOD UREA NITROGEN 15 mg/dL 7-21 (BEAKER) (test gcta=328) CREATININE (BEAKER) (test 0.74 mg/dL 0.57-1.25 kaya=210) GLUCOSE RANDOM (BEAKER) 147 mg/dL 70-105 (test ehum=968) CALCIUM (BEAKER) (test 10.0 mg/dL 8.4-10.2 cvom=383) EGFR (BEAKER) (test 76 mL/min/1.73 sq m ESTIMATED GFR IS NOT rjmd=3924) ACCURATE CREATININE CLEARANCE IN PREDICTING GLOMERULAR FILTRATION RATE. ESTIMATED GFR IS NOT APPLICABLE FOR DIALYSIS PATIENTS. HEPATIC FUNCTION [id number] 01:13:00 Test Item Value Reference Range Comments TOTAL PROTEIN (BEAKER) (test qyhx=031) 5.8 gm/dL 6.0-8.3 ALBUMIN (BEAKER) (test uqxr=2627) 3.1 g/dL 3.5-5.0 BILIRUBIN TOTAL (BEAKER) (test ywoh=674) 1.0 mg/dL 0.2-1.2 BILIRUBIN DIRECT (BEAKER) (test iunf=894) 0.6 mg/dL 0.1-0.5 ALKALINE PHOSPHATASE (BEAKER) (test bomt=936) 75 U/L 40-150 AST (SGOT) (BEAKER) (test cgha=478) 20 U/L 5-34 ALT (SGPT) (BEAKER) (test lxvz=788) 18 U/L 6-55 [id number] 01:13:00 Test Item Value Reference Range Comments LIPASE (BEAKER) (test shut=742) 23 U/L 8-78 RAD, CHEST, 1 VIEW, NON [id number] 23:47:00Reason for exam:->piccShould this be performed at [...] MDReport Verified Date/Time: 08/10/2018 23:47:27 Reading Location: [facility] [id number] Consult Reading Room POCT-GLUCOSE [id number] 23:29:00 Test Item Value Reference Range Comments POC-GLUCOSE METER (BEAKER) 158 mg/dL 70-[address] [facility] [address] [facility] (test ujco=1429) [facility] [address] HEMOGLOBIN [id number] 22:17:00 Test Item Value Reference Range Comments HEMOGLOBIN A1C (BEAKER) (test ywqp=911) 7.5 % 4.3-6.1 T4, [id number] 20:54:00 Test Item Value Reference Range Comments FREE T4 (BEAKER) (test tfdv=306) 0.86 ng/dL 0.70-1.48 TSH/FREE T4 IF [id number] 20:22:00 Test Item Value Reference Range Comments THYROID STIMULATING HORMONE (BEAKER) (test 0.30 uIU/mL 0.35-4.94 mroo=399) [id number] 19:31:00 Test Item Value Reference Range Comments AMMONIA (BEAKER) (test npsh=823) 29 mol/L 18-72 B-TYPE NATRIURETIC FACTOR (BNP)2018-08-10 18:48:00 Test Item Value Reference Range Comments B-TYPE NATRIURETIC PEPTIDE (BEAKER) (test 876 pg/mL 0-100 yjkv=410) LACTIC ACID, [id number] 18:47:00 Test Item Value Reference Range Comments LACTATE BLOOD VENOUS (2) 1.0 mmol/L 0.5-2.2 Specimen slightly hemolyzed (BEAKER) (test reiz=4180) POCT-GLUCOSE [id number] 18:30:00 Test Item Value Reference Range Comments POC-GLUCOSE METER (BEAKER) 149 mg/dL 70-[address] [facility] [address] (test tcwl=8032) [place] [address] [id number] 18:27:00 Test Item Value Reference Range Comments PROTIME (BEAKER) (test xjsr=230) 14.8 seconds 11.9-14.2 INR (BEAKER) (test qknb=973) 1.2 <=5.9 PARTIAL THROMBOPLASTIN TIME (BEAKER) (test 30.3 seconds 22.5-36.0 jobj=124) Effective 07/15/2018: PT Reference Range ChangeNew: 11.9-14.2 Previous: 11.7- 14.7RECOMMENDED COUMADIN/WARFARIN INR THERAPY RANGESSTANDARD DOSE: 2.0-3.0 Includes: PROPHYLAXIS for venous thrombosis, systemic embolization; TREATMENT for venous thrombosis and/or pulmonary embolus.HIGH RISK: Target INR is2.5-3.5 for patients wiht mechanical heart valves.CBC W/PLT COUNT & AUTO [id number] 18:08:00 Test Item Value Reference Range Comments WHITE BLOOD CELL COUNT (BEAKER) (test tchx=089) 15.4 K/ L 3.5-10.5 RED BLOOD CELL COUNT (BEAKER) (test aqcx=024) 3.77 M/ L 3.93-5.22 HEMOGLOBIN (BEAKER) (test wwbo=097) 11.8 GM/DL 11.2-15.7 HEMATOCRIT (BEAKER) (test dmvb=817) 36.2 % 34.1-44.9 MEAN CORPUSCULAR VOLUME (BEAKER) (test zxcc=181) 96.0 fL 79.4-94.8 MEAN CORPUSCULAR HEMOGLOBIN (BEAKER) (test 31.3 pg 25.6-32.2 uqco=280) MEAN CORPUSCULAR HEMOGLOBIN CONC (BEAKER) (test 32.6 GM/DL 32.2-35.5 etfg=580) RED CELL DISTRIBUTION WIDTH (BEAKER) (test 16.1 % 11.7-14.4 rduk=904) PLATELET COUNT (BEAKER) (test rlsm=745) 140 K/CU MM 150-450 MEAN PLATELET VOLUME (BEAKER) (test jrht=625) 11.0 fL 9.4-12.3 NUCLEATED RED BLOOD CELLS (BEAKER) (test 0 /100 WBC 0-0 cdcg=357) NEUTROPHILS RELATIVE PERCENT (BEAKER) (test 82 % iajh=365) LYMPHOCYTES RELATIVE PERCENT (BEAKER) (test 8 % gbcr=322) MONOCYTES RELATIVE PERCENT (BEAKER) (test 8 % hmay=854) EOSINOPHILS RELATIVE PERCENT (BEAKER) (test 0 % eceb=748) BASOPHILS RELATIVE PERCENT (BEAKER) (test 0 % obca=860) NEUTROPHILS ABSOLUTE COUNT (BEAKER) (test 12.69 K/ L 1.56-6.13 dkwy=354) LYMPHOCYTES ABSOLUTE COUNT (BEAKER) (test 1.24 K/ L 1.18-3.74 qnfx=515) MONOCYTES ABSOLUTE COUNT (BEAKER) (test 1.21 K/ L 0.24-0.36 ubsp=959) EOSINOPHILS ABSOLUTE COUNT (BEAKER) (test 0.02 K/ L 0.04-0.36 ilcb=143) BASOPHILS ABSOLUTE COUNT (BEAKER) (test 0.04 K/ L 0.01-0.08 enyq=284) IMMATURE GRANULOCYTES-RELATIVE PERCENT (BEAKER) 2 % 0-1 (test aovs=6950)
--- NOTE | 2019-02-08 17:52 | RAD REPORT ---
EXAM DESCRIPTION: RAD - Chest Single View - 02/08/2019 5:27 pm CLINICAL HISTORY: Altered mental status, shortness of breath, weakness COMPARISON: November 13 TECHNIQUE: AP portable chest image was obtained 1705 hour . FINDINGS: Chronic interstitial lung pattern is stable. No pulmonary edema. Mediastinum is widened by rotation. Heart and vasculature are normal. No measurable pleural effusion and no pneumothorax. No a cute bony abnormality seen. No acute aortic findings suspected. IMPRESSION: No acute cardiopulmonary process. No significant change from comparison.
[2019-02-08 17:54] LABS: Absolute Lymphocytes (CBC) 0.9 K/uL (0.7-4.9); Basophils % 0.4 % (0-1.3); Lymphocytes % 8.1 % (15.3-44.8); MPV 8.3 fL (7.6-11.3); RBC Red Blood Cell Count 3.63 M/uL (3.86-4.86)
[2019-02-08 17:56] LABS: Protime INR 1.15
[2019-02-08 18:13] LABS: Urine Bacteria <20 /HPF (<20); Urine Culture Reflex Order REFLEXED; Urine Mucus 2+ /HPF (NONE SEEN); Urine RBC <5 /HPF (NONE SEEN); Urine Yeast PRESENT (NONE SEEN)
[2019-02-08 18:14] LABS: ALT/SGPT 30 U/L (12-78); AST/SGOT 25 U/L (15-37); Albumin 1.7 g/dL (3.4-5.0); Alkaline Phosphatase 119 U/L (45-117); BUN Blood Urea Nitrogen 15 mg/dL (7-18); Bicarbonate 30 mmol/L (21-32); Bilirubin Direct 0.1 mg/dL (0-0.2); Bilirubin Total 0.2 mg/dL (0.2-1.0); Creatine Phosphokinase 52 U/L (26-192); Glucose Level 181 mg/dL (74-106); Magnesium 2.1 mg/dL (1.8-2.4); NT PRO-BNP 749 pg/mL (<450); Protein, Total 6.4 g/dL (6.4-8.2); Sodium Level 138 mmol/L (136-145); Troponin (Emerg Dept Use Only) < 0.02 ng/mL (0.0-0.045)
[2019-02-08 18:15] LABS: Urine Blood NEGATIVE (NEG); Urine Glucose NEGATIVE (NEG); Urine Protein 1+ (NEG)
[2019-02-08] MEDS ORDERED: NA CHLORIDE 0.9% 1,000 ML ONE (18:21)
--- NOTE | 2019-02-08 19:24 | RAD REPORT ---
EXAM DESCRIPTION: CT - Abdomen Pelvis W Contrast - 02/08/2019 6:47 pm CLINICAL HISTORY: ABD PAIN COMPARISON: CT study October 18 TECHNIQUE: Biphasic, helical CT imaging of the abdomen and pelvis was performed following 100 ml non -ionic IV contrast. No oral contrast. All CT scans are performed using dose optimization technique as appropriate and may include automated exposure control or mA/KV adjustment according to patient size. FINDINGS: Trace amounts of pleural fluid seen in each posterior gutter along with trace amounts of a telectasis. No pericardial thickening or effusion. The liver, spleen, and pancreas show no suspicious findings. Gallbladder is absent. Extensive pneumob abiola is present as previously seen. No acute biliary process identified. Symmetric renal function is seen with no hydronephrosis or suspicious renal mass. No pyelonephritis o r acute renal parenchymal process seen. Right stent has been removed since the October 18 study. A 9 x 5 millimeter calcification is present in the right renal pelvis. A punctate 2 millimeter calcifica tion is present adjacent to the stone. No ureteral calculus seen. Urinary bladder is contracted aroun d a Webb catheter. Two punctate 2 mm calcifications or hyperdense foci air seen along the inner wall of the bladder. No bladder calculi seen on the prior study. These may be small stone fragments if th ere is been lithotripsy since October 18. No adrenal abnormalities. Small hiatal hernia is present. No gastric wall thickening or mass. No dilation of the small bowel. M oderate stool volume scattered throughout the colon. The rectum is distended by stool. No acute colon process seen. No free air, free fluid or inflammatory stranding. No new mass or bulky lymphadenopathy. Postsurgi jarad changes are noted to the anterior abdominal wall. No suspicious bony findings. Disc and bony degenerative changes are present. IMPRESSION: Moderate stool volume filling the colon. Rectum is distended. No acute colon process mark pected. Right renal stent has been removed since prior imaging. A nonobstructive 9 x 6 mm calcification is pr esent in the pelvis. There appear to be punctate bladder calculi as well.
[2019-02-08] MEDS ORDERED: FLUCONAZOLE 100 MG TAB ONE (21:28)
--- NOTE | 2019-02-08 21:39 | ER ---
Nurse's Notes [facility] Name: Judy Puri Age: 78 yrs Sex: Female : 1940 Arrival Date: 02/08/2019 Time: 16:22 Bed 5 Private MD: Diagnosis: Candidiasis, unspecified Presentation: 02/08 16:00 Presenting complaint: EMS states: called EMS reporting that patient refuses to vc eat or drink and has been laying in the same spot since being discharged from another hospital yesterday. 16:00 Transition of care: patient was not received from another setting of care. Onset of vc symptoms was February 07, 2019. Risk Assessment: Do you want to hurt yourself or someone else? Unable to obtain. Initial Sepsis Screen: Does the patient meet any 2 criteria? HR > 90 bpm. No. Patient's initial sepsis screen is negative. Does the patient have a suspected source of infection? No. Patient's initial sepsis screen is negative. Care prior to arrival: None. 16:00 Method Of Arrival: EMS: [facility] vc 16:00 Acuity: JONATHAN 4 vc Historical: - Allergies: 17:14 Codeine; vc 17:14 Propoxyphene HCl; vc - PMHx: 17:14 Arthritis; Atrial Fib; cardiac stent; Diabetes - NIDDM; GALLSTONES; Hypertension; vc Myocardial infarction; - Immunization history:: Adult Immunizations unknown. - Social history:: Smoking status: Patient/guardian denies using tobacco. - Ebola Screening: : No symptoms or risks identified at this time. Screenin:00 Abuse screen: Patient came to ER via EMS covered in feces and urine. Patients vc states he is physically unable to care for patient. PALAK Lawrence made aware. 16:00 Nutritional screening: No deficits noted. Tuberculosis screening: No symptoms or risk vc factors identified. Fall Risk IV access (20 points). Gait- Normal/Bed Rest/Wheelchair (0 pts) Mental Status- Oriented to own ability (0 pts). Total Chan Fall Scale indicates No Risk (0-24 pts). Assessment: 16:00 General: Appears uncomfortable, obese, unkempt, to be covered in feces and urine.. vc Behavior is agitated, anxious, Smells of feces and urine.. Pain: Complains of pain in patient grimaces and screams out in pain when any part of her arms, legs, abdomen are palpated. Unable to use pain scale. Does not appear to understand pain scale. Patient appears agitated, to be grimacing, to be guarding. Neuro: Level of Consciousness is awake, obeys commands, Oriented to person, place, situation. Cardiovascular: Capillary refill < 3 seconds Edema noted to right knee. Respiratory: Airway is patent Respiratory effort is even, unlabored. GI: Abdomen is round non-distended. : Bladder is distended Reports pain in suprapubic area. EENT: No signs and/or symptoms were reported regarding the EENT system. Derm: Skin with poor turgor has skin tears on bilateral arms. Patient noted itching bilateral thighs and pubic region, redness noted. Decubitus located on right heel(s) medial portion of right great toe, and dressing on sacrum dry and intact. Musculoskeletal: Range of motion: limited in all extremities, Swelling present in right knee Parent/caregiver report the patient having states that patient has been unable to leave bed since August but was able to turn by herself until recently. 16:05 Reassessment: Patient given bed bath and place in clean gown. vc 16:30 Reassessment: Patients at the bedside. states that he has arthritis and vc a broken back and is unable to care for the patient. also states that they lost there son to a peptic ulcer bleed and that is why he is so concerned about his 's conditions. 17:00 General: Appears Behavior is calm, Patient is less agitated than initial assessment.. vc 17:00 Neuro: Level of Consciousness is awake, alert, obeys commands, Oriented to person, vc place, situation. 17:30 Reassessment: Attempted to reposition patient. Patient unable to tolerate movement. vc Placed pillow under patients head. 18:35 Reassessment: Patient states that the suprapubic pain she was experiencing has vc diminished after placing schmidt catheter. Pt to CT via stretcher. 18:53 Reassessment: Patient back from CT, at bedside. vc 19:25 Reassessment: Patients states that he was incorrect on when the patient was vc released from the previous hospital, "she was released the night before last, and I was able to get her to drink 1 ensure today.". 19:45 General: Appears in no apparent distress. Neuro: Level of Consciousness is awake, lp1 alert, Oriented to person, place. Respiratory: Respiratory effort is even, unlabored. Derm: Skin is intact, Skin is dry, Skin is normal. 21:00 Reassessment: Howard Richards NP at bedside to discuss plan of care with patient and lp1 . 22:00 Reassessment: Patient cleaned, BM noted; brief changed, pressure ulcer, stage 1, to lp1 sacrum noted, Provider aware; Assisted to wheelchair for discharge; Instructed to call for lift assist on arrival to home. Vital Signs: 16:30 BP 143 / 85; Pulse 115; Resp 18; Temp 97.9(TE); Pulse Ox 97% on R/A; vc 17:30 BP 134 / 83; Pulse 114; Resp 16; Pulse Ox 94% on R/A; vc 18:20 BP 126 / 79; Pulse 112; Resp 16; Pulse Ox 97% on R/A; vc 19:45 BP 149 / 71; Pulse 106; Resp 18; Pulse Ox 97% on R/A; lp1 21:00 BP 144 / 85; Pulse 108; Resp 18; Pulse Ox 96% on R/A; lp1 22:00 BP 137 / 71; Pulse 98; Resp 18; Temp 98.2; Pulse Ox 97% on R/A; lp1 ED Course: 16:22 Patient arrived in ED. ph 16:23 Howard Richards NP is PHCP. pm1 16:23 Neri Pope MD is Attending Physician. pm1 16:50 Barbara Pichardo RN is Primary Nurse. vc 16:54 Triage completed. vc 17:00 Inserted saline lock: 22 gauge in left antecubital area, using aseptic technique. Blood vc collected. 17:15 XRAY Chest (1 view) Sent. vc 17:29 XRAY Chest (1 view) In Process Unspecified. EDMS 17:50 Radiology exam delayed due to lab results not completed at this time. (BUN/Creatinine) nj IV insertion attempt and/or patient not having appropriate IV at this time. 18:15 Urine Dipstick--Ancillary (enter results) Sent. vc 18:43 Arm band placed on. Arm band placed on left wrist. vc 18:43 Patient has correct armband on for positive identification. Fall risk band placed. vc Placed in gown. Bed in low position. Call light in reach. Side rails up X2. Adult w/ patient. Lights dimmed. Warm blanket given. 18:49 CT Abd/Pelvis - IV Contrast Only In Process Unspecified. EDMS 21:15 No provider procedures requiring assistance completed. lp1 22:20 IV discontinued, No redness/swelling at site. Pressure dressing applied. lp1 Administered Medications: 17:10 Drug: NS 0.9% 1000 ml Route: IV; Rate: 1000 ml; Site: left antecubital; vc 22:20 Drug: DiFLUcan 150 mg Route: PO; lp1 22:45 Follow up: Response: Medication administered at discharge. lp1 Outcome: 21:37 Discharge ordered by MD. pm1 22:30 Discharged to home via wheelchair, with significant other. lp1 22:30 Condition: stable 22:30 Discharge instructions given to significant other, residential youth counselor, Instructed on discharge instructions, follow up and referral plans. Demonstrated understanding of instructions, follow-up care. 22:54 Patient left the ED. lp1 Signatures: Dispatcher [employer] EDMS Opal Lu RN RN lp1 Emerald Cline RN RN ph [place], Patrick, PALAK FISHER OYSTER pm1 Charly Coon Vanessa RN RN vc Corrections: (The following items were deleted from the chart) 18:42 16:00 Neuro: Level of Consciousness is awake, obeys commands, Oriented to person, vc vc 22:59 22:00 Reassessment: Patient cleaned, BM noted; brief changed; Assisted to wheelchair lp1 for discharge; Instructed to call for lift assist on arrival to home lp1
--- NOTE | 2019-02-08 21:39 | EDPHYS ---
Physician Documentation [facility] Name: Judy Puri Age: 78 yrs Sex: Female : 1940 Arrival Date: 02/08/2019 Time: 16:22 Bed 5 Private MD: ED Physician Neri Pope HPI: 02/08 17:05 This 78 yrs old Female presents to ER via EMS with complaints of Won't Eat. pm1 17:05 Patient with presenting to the ER with complaints of decreased appetite and assistance pm1 with placing patient into a halfway. Patient was discharged from [facility] three days ago for evaluation and treatment of GI bleeding. When she was discharged home, was surprised that she was not discharged to a halfway. He is 81 years old and feels that he is unable to take care for her and he wants help putting her into a halfway. Patient has been bed bound since August this year. Patient herself does not have any complaints. Historical: - Allergies: 17:14 Codeine; vc 17:14 Propoxyphene HCl; vc - PMHx: 17:14 Arthritis; Atrial Fib; cardiac stent; Diabetes - NIDDM; GALLSTONES; Hypertension; vc Myocardial infarction; - Immunization history:: Adult Immunizations unknown. - Social history:: Smoking status: Patient/guardian denies using tobacco. - Ebola Screening: : No symptoms or risks identified at this time. ROS: 17:26 Eyes: Negative for injury, pain, redness, and discharge, ENT: Negative for injury, pm1 pain, and discharge, Neck: Negative for injury, pain, and swelling, Cardiovascular: Negative for chest pain, palpitations, and edema, Respiratory: Negative for shortness of breath, cough, wheezing, and pleuritic chest pain. 17:26 Abdomen/GI: Negative for abdominal pain, nausea, vomiting, diarrhea, and constipation, Back: Negative for injury and pain, : Negative for injury, bleeding, discharge, and swelling, MS/Extremity: Negative for injury and deformity, Skin: Negative for injury, rash, and discoloration, Neuro: Negative for headache, weakness, numbness, tingling, and seizure. 17:26 Constitutional: Positive for poor PO intake, Negative for body aches, fever. Exam: 17:26 Head/Face: Normocephalic, atraumatic. Eyes: Pupils equal round and reactive to light, pm1 extra-ocular motions intact. Lids and lashes normal. Conjunctiva and sclera are non-icteric and not injected. Cornea within normal limits. Periorbital areas with no swelling, redness, or edema. ENT: Nares patent. No nasal discharge, no septal abnormalities noted. Tympanic membranes are normal and external auditory canals are clear. Oropharynx with no redness, swelling, or masses, exudates, or evidence of obstruction, uvula midline. Mucous membranes moist. Neck: Trachea midline, no thyromegaly or masses palpated, and no cervical lymphadenopathy. Supple, full range of motion without nuchal rigidity, or vertebral point tenderness. No Meningismus. Chest/axilla: Normal chest wall appearance and motion. Nontender with no deformity. No lesions are appreciated. Cardiovascular: Regular rate and rhythm with a normal S1 and S2. No gallops, murmurs, or rubs. No pulse deficits. Respiratory: Lungs have equal breath sounds bilaterally, clear to auscultation and percussion. No rales, rhonchi or wheezes noted. No increased work of breathing, no retractions or nasal flaring. Abdomen/GI: Soft, non-tender, with normal bowel sounds. No distension or tympany. No guarding or rebound. No evidence of tenderness throughout. Back: No spinal tenderness. No costovertebral tenderness. Full range of motion. MS/ Extremity: Pulses equal, no cyanosis. Neurovascular intact. Full, normal range of motion. 17:26 Constitutional: The patient appears in no acute distress, alert, awake, comfortable, non-diaphoretic, non-toxic, well developed, well hydrated, well nourished, smells of urine. 17:26 Skin: Appearance: normal except for affected area, stage 2 decubitus to sacral area. Vital Signs: 16:30 BP 143 / 85; Pulse 115; Resp 18; Temp 97.9(TE); Pulse Ox 97% on R/A; vc 17:30 BP 134 / 83; Pulse 114; Resp 16; Pulse Ox 94% on R/A; vc 18:20 BP 126 / 79; Pulse 112; Resp 16; Pulse Ox 97% on R/A; vc 19:45 BP 149 / 71; Pulse 106; Resp 18; Pulse Ox 97% on R/A; lp1 21:00 BP 144 / 85; Pulse 108; Resp 18; Pulse Ox 96% on R/A; lp1 22:00 BP 137 / 71; Pulse 98; Resp 18; Temp 98.2; Pulse Ox 97% on R/A; lp1 MDM: 16:34 Patient medically screened. pm1 20:44 Data reviewed: vital signs. Data interpreted: Pulse oximetry: on room air is 97 %. pm1 Interpretation: normal. 20:49 ED course: Called Allie Trevino with [facility]. Patient does not meet criteria pm1 for admission to facility. Recommends PCP ordering PT and OT evaluation for possible placement to halfway. 20:52 Counseling: I had a detailed discussion with the patient and/or guardian regarding: the pm1 historical points, exam findings, and any diagnostic results supporting the discharge/admit diagnosis, lab results, radiology results, the need for outpatient follow up, a family practitioner, to return to the emergency department if symptoms worsen or persist or if there are any questions or concerns that arise at home. 21:36 ED course: Discussed at length with patient and that admission criteria to the the [facility] hospital is not present and I have contacted a rehabilitation center for possible placement. She does not meet criteria for rehabilitation center admission either. Educated the patient on recommendations from Allie. They understand the next steps that they need to address with the PCP for help with placement to a halfway. 22:03 ED course: Patient with large BM in ER. No constipation present. pm1 02/08 16:44 Order name: CPK; Complete Time: 18:26 pm1 02/08 16:44 Order name: Urine Microscopic Only; Complete Time: 18:26 pm1 02/08 16:44 Order name: Basic Metabolic Panel; Complete Time: 18:26 pm1 02/08 16:44 Order name: CBC with Diff; Complete Time: 18:09 pm1 02/08 16:44 Order name: LFT's; Complete Time: 18:26 pm1 02/08 16:44 Order name: Magnesium; Complete Time: 18:26 pm1 02/08 16:44 Order name: CT Abd/Pelvis - IV Contrast Only; Complete Time: 19:37 pm1 02/08 16:44 Order name: NT PRO-BNP; Complete Time: 18:26 pm1 02/08 16:44 Order name: PT-INR; Complete Time: 18:09 pm1 02/08 16:44 Order name: Troponin (emerg Dept Use Only); Complete Time: 18:26 pm1 02/08 16:44 Order name: XRAY Chest (1 view); Complete Time: 17:55 pm1 02/08 18:02 Order name: Urine Dipstick--Ancillary (enter results); Complete Time: 18:26 bd 02/08 18:15 Order name: Urine Culture EDSD 02/08 16:44 Order name: Urine Dipstick-Ancillary (obtain specimen); Complete Time: 19:19 pm1 02/08 16:44 Order name: Cardiac monitoring; Complete Time: 19:15 pm1 02/08 16:44 Order name: EKG - Nurse/Tech; Complete Time: 19:15 pm1 02/08 16:44 Order name: IV Saline Lock; Complete Time: 18:15 pm1 02/08 16:44 Order name: Labs collected and sent; Complete Time: 18:15 pm1 02/08 16:44 Order name: O2 Per Protocol; Complete Time: 18:15 pm1 02/08 16:44 Order name: O2 Sat Monitoring; Complete Time: 18:15 pm1 02/08 16:44 Order name: Straight Cath - Urine; Complete Time: 18:15 pm1 Administered Medications: 17:10 Drug: NS 0.9% 1000 ml Route: IV; Rate: 1000 ml; Site: left antecubital; vc 22:20 Drug: DiFLUcan 150 mg Route: PO; lp1 22:45 Follow up: Response: Medication administered at discharge. lp1 Disposition: 02/08/19 21:37 Discharged to Home. Impression: Candidiasis, unspecified. - Condition is Stable. - Medication Reconciliation Form, Thank You Letter, Antibiotic Education, Prescription Opioid Use form. - Follow up: Emergency Department; When: As needed; Reason: Worsening of condition. Follow up: Private Physician; When: 2 - 3 days; Reason: Recheck today's complaints, Continuance of care, Re-evaluation by your physician. - Problem is new. - Symptoms have improved. Addendum: 02/10/2019 07:58 Co-signature as Attending Physician, Neri Pope MD I agree with the assessment and k dr plan of care. Signatures: Dispatcher [employer] EDMS Neri Pope MD MD kdr Opal Lu RN RN lp1 Howard Richards, DIRECTOR SALES TRAINING DIRECTOR SALES TRAINING pm1 Barbara Pichardo RN RN vc Corrections: (The following items were deleted from the chart) 02/08 21:38 21:37 02/08/2019 21:37 Discharged to Home. Impression: Candidiasis, unspecified. pm1 Condition is Stable. Forms are Medication Reconciliation Form, Thank You Letter, Antibiotic Education, Prescription Opioid Use. Follow up: Emergency Department; When: As needed; Reason: Worsening of condition. Follow up: Private Physician; When: 2 - 3 days; Reason: Recheck today's complaints, Continuance of care, Re-evaluation by your physician. Problem is new. Symptoms have improved. pm1 22:54 21:38 02/08/2019 21:37 Discharged to Home. Impression: Candidiasis, unspecified. lp1 Condition is Stable. Forms are Medication Reconciliation Form, Thank You Letter, Antibiotic Education, Prescription Opioid Use. Follow up: Emergency Department; When: As needed; Reason: Worsening of condition. Follow up: Private Physician; When: 2 - 3 days; Reason: Recheck today's complaints, Continuance of care, Re-evaluation by your physician. Problem is new. Symptoms have improved. pm1
[2019-02-09 01:57] VITALS: BP 137/71; TEMP 98.2; O2SAT 97
== END 2019-02-08 22:54 | disposition home or self-care (01) ==
LOC: ER 16:17
DX: B37.9 Candidiasis, unspecified (principal); I10 Essential (primary) hypertension; I25.2 Old myocardial infarction; Z88.5 Allergy status to narcotic agent; Z88.8 Allergy status to other drugs, medicaments and biological substances; Z95.818 Presence of other cardiac implants and grafts
CPT/HCPCS: 87088; 85025; 87086; 80048; 36415; 83735; 82550; 85610; 80076; 84484; 83880; 74177; 71045; 99284; Q9967; J7030; 81003; 81015

== ENCOUNTER 2019-02-11 16:55 | Inpatient (IN) | payer OTHER ==
--- OUTSIDE RECORDS SUMMARY | 2019-02-11 17:00 | XMS REPORT ---
:1940 [facility] Address [address] [place] [address] Care Team Providers Name Role Phone RYAN [...] Facility Department ID 2019-01-29 2019-01-29 Inpatient E [facility] 7500 18:48:00 13:48:00 Results Test Description Test Time Test Comments Text Results Atomic Results Result Comments GLUCOSE BEDSIDE TESTING 2018-11-28 17:18:00 Test Item Value Reference Range Comments GLUCOSE BEDSIDE TESTING (test code=GLUBED) 137 mg/dL 70-110 GLUCOSE BEDSIDE [id number] 12:44:00 Test Item Value Reference Range Comments GLUCOSE BEDSIDE TESTING (test code=GLUBED) 177 mg/dL 70-110 BASIC METABOLIC [id number] 09:05:00 Test Item Value Reference Range Comments [...] (test code=CA) 9.3 MG/DL 8.5-10.1 GLUCOSE BEDSIDE [id number] 08:15:00 Test Item Value Reference Range Comments GLUCOSE BEDSIDE TESTING (test code=GLUBED) 120 mg/dL 70-110 GLUCOSE BEDSIDE [id number] 03:47:00 Test Item Value Reference Range Comments GLUCOSE BEDSIDE TESTING (test code=GLUBED) 95 mg/dL 70-110 GLUCOSE BEDSIDE [id number] 00:45:00 Test Item Value Reference Range Comments GLUCOSE BEDSIDE TESTING (test code=GLUBED) 88 mg/dL 70-110 GLUCOSE BEDSIDE [id number] 20:27:00 Test Item Value Reference Range Comments GLUCOSE BEDSIDE TESTING (test code=GLUBED) 162 mg/dL 70-110 GLUCOSE BEDSIDE [id number] 16:40:00 Test Item Value Reference Range Comments GLUCOSE BEDSIDE TESTING (test code=GLUBED) 119 mg/dL 70-110 GLUCOSE BEDSIDE [id number] 15:18:00 Test Item Value Reference Range Comments GLUCOSE BEDSIDE TESTING (test code=GLUBED) < 10 mg/dL 70-110 GLUCOSE BEDSIDE [id number] 13:04:00 Test Item Value Reference Range Comments GLUCOSE BEDSIDE TESTING (test code=GLUBED) 113 mg/dL 70-110 GLUCOSE BEDSIDE [id number] 10:21:00 Test Item Value Reference Range Comments GLUCOSE BEDSIDE TESTING (test code=GLUBED) 87 mg/dL 70-110 GLUCOSE BEDSIDE [id number] 09:23:00 Test Item Value Reference Range Comments GLUCOSE BEDSIDE TESTING (test code=GLUBED) 85 mg/dL 70-110 GLUCOSE BEDSIDE [id number] 08:16:00 Test Item Value Reference Range Comments GLUCOSE BEDSIDE TESTING (test code=GLUBED) 84 mg/dL 70-110 GLUCOSE BEDSIDE [id number] 06:46:00 Test Item Value Reference Range Comments GLUCOSE BEDSIDE TESTING (test code=GLUBED) 93 mg/dL 70-110 BASIC METABOLIC [id number] 06:03:00 Test Item Value Reference Range Comments [...] (test code=CA) 9.5 MG/DL 8.5-10.1 BASIC METABOLIC [id number] 06:01:00 Test Item Value Reference Range Comments [...] (test code=CA) 9.5 MG/DL 8.5-10.1 GLUCOSE BEDSIDE [id number] 04:40:00 Test Item Value Reference Range Comments GLUCOSE BEDSIDE TESTING (test code=GLUBED) 92 mg/dL 70-110 GLUCOSE BEDSIDE [id number] 02:48:00 Test Item Value Reference Range Comments GLUCOSE BEDSIDE TESTING (test code=GLUBED) 87 mg/dL 70-110 GLUCOSE BEDSIDE [id number] 01:17:00 Test Item Value Reference Range Comments GLUCOSE BEDSIDE TESTING (test code=GLUBED) 12 mg/dL 70-110 GLUCOSE BEDSIDE [id number] 00:45:00 Test Item Value Reference Range Comments GLUCOSE BEDSIDE TESTING (test code=GLUBED) 114 mg/dL 70-110 GLUCOSE BEDSIDE [id number] 00:45:00 Test Item Value Reference Range Comments GLUCOSE BEDSIDE TESTING (test code=GLUBED) 58 mg/dL 70-110 GLUCOSE BEDSIDE [id number] 21:52:00 Test Item Value Reference Range Comments GLUCOSE BEDSIDE TESTING (test code=GLUBED) 110 mg/dL 70-110 GLUCOSE BEDSIDE [id number] 20:31:00 Test Item Value Reference Range Comments GLUCOSE BEDSIDE TESTING (test code=GLUBED) 30 mg/dL 70-110 GLUCOSE BEDSIDE [id number] 18:52:00 Test Item Value Reference Range Comments GLUCOSE BEDSIDE TESTING (test code=GLUBED) 107 mg/dL 70-110 GLUCOSE BEDSIDE [id number] 18:47:00 Test Item Value Reference Range Comments GLUCOSE BEDSIDE TESTING (test code=GLUBED) 69 mg/dL 70-110 GLUCOSE BEDSIDE [id number] 17:18:00 Test Item Value Reference Range Comments GLUCOSE BEDSIDE TESTING (test code=GLUBED) 103 mg/dL 70-110 GLUCOSE BEDSIDE [id number] 17:18:00 Test Item Value Reference Range Comments GLUCOSE BEDSIDE TESTING (test code=GLUBED) 142 mg/dL 70-110 GLYCOSYLATED HEMOGLOBIN [id number] 16:51:00 Test Item Value Reference Range Comments GLYCOSYLATED HEMOGLOBIN (HA1C) (test 6.0 % A1C 4.2-6.3 code=GLYHGB) ESTIMATED AVERAGE GLUCOSE (test code=EAG) 126 MG/DLest GLUCOSE BEDSIDE [id number] 16:19:00 Test Item Value Reference Range Comments GLUCOSE BEDSIDE TESTING (test code=GLUBED) 43 mg/dL 70-110 GLUCOSE BEDSIDE [id number] 15:13:00 Test Item Value Reference Range Comments GLUCOSE BEDSIDE TESTING (test code=GLUBED) 148 mg/dL 70-110 GLUCOSE BEDSIDE [id number] 15:13:00 Test Item Value Reference Range Comments GLUCOSE BEDSIDE TESTING (test code=GLUBED) 12 mg/dL 70-110 GLUCOSE BEDSIDE [id number] 12:22:00 Test Item Value Reference Range Comments GLUCOSE BEDSIDE TESTING (test code=GLUBED) 103 mg/dL 70-110 UA RFLX MICR CULT IF [id number] 11:25:00 Test Item Value Reference Range Comments [...] for culture: Dysuria/FrequencyUA RFLX MICR CULT IF [id number] 11:16:00 Test Item Value Reference Range Comments [...] CATCHIndication for culture: Dysuria/Frequency- XR CHEST 1 [id number] 10:36:00 Name: JUDY CALHOUN [facility] : 1940 Age/S: 78 / F [address] [facility] Unit #: [id number] Loc: [place] [address] Phys: Chance Mckinnon MD Acct: [id number] Dis Date: Status: PRE ER PHONE #: [phone] Exam Date: 11/26/2018 1015 FAX #: Reason: Suspected Sepsis EXAMS: CPT: [id number] XR CHEST 1 V 58636 Fluoro Time: DAP (Gy m2): Air Kerma [...] PAGE 1 Signed Report Name: JUDY CALHOUN [facility] : 1940 Age/S: 78 / F [address] [facility] Unit #: [id number]: [place] [address] Phys: Chance Mckinnon MD Acct: [id number] Dis Date: Status: PRE ER PHONE #: [phone] Exam Date: 11/26/2018 1015 FAX #: Reason: Suspected Sepsis EXAMS: CPT: [id number] XR CHEST 1 V 61664 Fluoro Time: DAP (Gy m2): Air Kerma (mGy): & lt;Continued> Technologist: Gregoria Brooke, RT(R) Trnscb Date/Time: 11/26/2018 (1036) [id number] Orig Print D/T: S: 11/26/2018 (6350) PAGE 2 Signed ReportCOMPREHENSIVE METABOLIC [id number] 10:32:00 Test Item Value Reference Range Comments [...] (test code=ALKP) 91 Unit/L 45-117 LACTIC ACID [id number] 10:21:00 Test Item Value Reference Range Comments LACTIC ACID POC (test code=LACTP) 1.81 MMOL/L 0.90-1.70 CBC W/AUTO [id number] 10:10:00 Test Item Value Reference Range Comments [...] (test code=MDIFF) NO DIFF/SCN CRITERIA TROPONIN I [id number] 09:53:00 Test Item Value Reference Range Comments TROPONIN I RAPID (test 0.01 ng/mL 0.00-0.08 - The use of serial sampling code=TROPIRAP) and testing protocol is a recommended practice- An elevated troponin level alone is often not sufficient for diagnosis of myocardial infarction. CHEMISTRY 8 [id number] 09:45:00 Test Item Value Reference Range Comments ISTAT-SODIUM (test code=NAP) mmol/L 135-146 ISTAT-POTASSIUM (test code=KP) mmol/L 3.5-4.9 ISTAT-CHLORIDE (test code=CLP) mmol/L 98-109 ISTAT-CARBON DIOXIDE (test code=ISTAT-CO2) mmol/L 24-29 ISTAT CALCIUM IONIZED (test code=ISTAT-PAU) mmol/L 1.12-1.32 ISTAT-GLUCOSE (test code=GLUP) mg/dL 70-105 ISTAT-BUN (test code=BUNP) mg/dL 8-26 BEDSIDE CREATININE (test code=CREATBED) mg/dL 0.6-1.3 GLOMERULAR FILTRATION RATE POC (test code=GFRBED) 51 39-90 CHEMISTRY 8 [id number] 09:45:00 Test Item Value Reference Range Comments [...] (test 51 39-90 code=GFRBED) U/S, RENAL WITH [id number] 16:58:00Reason for exam:-> hypertensionShould this be performed [...] with elevated resistive indicis. Signed: Baldemar Haley [facility] Verified Date/Time: 08/18/2018 16:58:13 Reading Location: [address] Radiology Reading Room TISSUE [id number] 14:09: 00Surgical Pathology Report Case: [id number] Authorizing Provider: Roddy Bernard Collected : 08/15/2018 1652 Ordering Location: [address] Received: 08/17/2018 0800 Service Pathologist: Joanne [...] OR MALIGNANCY NOTED Signing Pathologist Direct PhoneLine: [phone] signed by Joanne Gu MD on 08/18/2018 at 2:09 PMPreliminary result electronically signed by Joanne Gu MD on 08/17/2018 at 6:32 [id number] X 2;[id number]; [id number] bile duct stonesA. Duodenal ulcers biopsy; B. [...] evaluated Immunohistochemistry technical testing was performed at [facility], Pathology Laboratory where it wasdeveloped and its [...] to perform high complexity clinical laboratory testing.POCT-GLUCOSE [id number] 07:43:00 Test Item Value Reference Range Comments POC-GLUCOSE METER (BEAKER) 141 mg/dL 70-110 TESTED AT [facility] [address] [facility] (test udvu=1986) [facility] [address] [id number] 06:53:00 Test Item Value Reference Range Comments MAGNESIUM (BEAKER) (test rxvx=404) 1.9 mg/dL 1.6-2.6 BASIC METABOLIC [id number] 06:53:00 Test Item Value Reference Range Comments SODIUM (BEAKER) (test 134 meq/L 136-145 mbca=030) POTASSIUM (BEAKER) (test 4.2 meq/L 3.5-5.1 evjr=191) CHLORIDE (BEAKER) (test 103 meq/L 98-107 jcvn=196) CO2 (BEAKER) (test 28 meq/L 22-29 euxy=052) BLOOD UREA NITROGEN 12 mg/dL 7-21 (BEAKER) (test sxaw=259) CREATININE (BEAKER) (test 0.74 mg/dL 0.57-1.25 vian=939) GLUCOSE RANDOM (BEAKER) 124 mg/dL 70-105 (test ayns=615) CALCIUM (BEAKER) (test 9.9 mg/dL 8.4-10.2 tedn=555) EGFR (BEAKER) (test 76 mL/min/1.73 sq m ESTIMATED GFR IS NOT vmzs=0963) ACCURATE CREATININE CLEARANCE IN PREDICTING GLOMERULAR FILTRATION RATE. ESTIMATED GFR IS NOT APPLICABLE FOR DIALYSIS PATIENTS. HEPATIC FUNCTION [id number] 06:53:00 Test Item Value Reference Range Comments TOTAL PROTEIN (BEAKER) (test wvgt=049) 5.4 gm/dL 6.0-8.3 ALBUMIN (BEAKER) (test iptu=1124) 2.9 g/dL 3.5-5.0 BILIRUBIN TOTAL (BEAKER) (test sgsi=483) 0.4 mg/dL 0.2-1.2 BILIRUBIN DIRECT (BEAKER) (test bpyr=842) 0.2 mg/dL 0.1-0.5 ALKALINE PHOSPHATASE (BEAKER) (test anyf=111) 73 U/L 40-150 AST (SGOT) (BEAKER) (test xsoi=449) 20 U/L 5-34 ALT (SGPT) (BEAKER) (test mnnp=657) 17 U/L 6-55 CBC (HEMOGRAM ONLY)2018-08-18 06:22:00 Test Item Value Reference Range Comments WHITE BLOOD CELL COUNT (BEAKER) (test rbhx=914) 11.7 K/ L 3.5-10.5 RED BLOOD CELL COUNT (BEAKER) (test ytgx=877) 3.29 M/ L 3.93-5.22 HEMOGLOBIN (BEAKER) (test naum=913) 10.4 GM/DL 11.2-15.7 HEMATOCRIT (BEAKER) (test leqy=922) 31.8 % 34.1-44.9 MEAN CORPUSCULAR VOLUME (BEAKER) (test ozgj=986) 96.7 fL 79.4-94.8 MEAN CORPUSCULAR HEMOGLOBIN (BEAKER) (test 31.6 pg 25.6-32.2 giqq=082) MEAN CORPUSCULAR HEMOGLOBIN CONC (BEAKER) (test 32.7 GM/DL 32.2-35.5 wofz=548) RED CELL DISTRIBUTION WIDTH (BEAKER) (test 16.6 % 11.7-14.4 ktwe=723) PLATELET COUNT (BEAKER) (test ecnd=029) 175 K/CU MM 150-450 MEAN PLATELET VOLUME (BEAKER) (test mtkt=702) 11.4 fL 9.4-12.3 NUCLEATED RED BLOOD CELLS (BEAKER) (test 0 /100 WBC 0-0 lsod=601) POCT-GLUCOSE [id number] 23:08:00 Test Item Value Reference Range Comments POC-GLUCOSE METER (BEAKER) 163 mg/dL 70-110 TESTED AT [address] (test dypy=7139) [place] [address] POCT-GLUCOSE [id number] 17:26:00 Test Item Value Reference Range Comments POC-GLUCOSE METER (BEAKER) 131 mg/dL 70-110 TESTED AT [address] (test wfdz=8131) [place] [address] PET, CARDIAC PERFUSION MULTIPLE STUDIES, REST AND [id number] 15:22: 00Reason for exam:->Exclude ischemiaFINAL REPORT PROCEDURE: MYOCARDIAL PERFUSION PET IMAGING (Rest/Stress)CPT CODE: 23366 INDICATION: Define extent of known CAD, chest [...] Bourgeois Verified Date/Time: 08/17/2018 15:22:38 Reading Location: [place] [id number] Reading Room POCT-GLUCOSE [id number] 13:27:00 Test Item Value Reference Range Comments POC-GLUCOSE METER (BEAKER) 130 mg/dL 70-110 TESTED AT [facility] [address] (test dmmz=6713) [place] [address] CBC (HEMOGRAM ONLY)2018-08-17 07:52:00 Test Item Value Reference Range Comments WHITE BLOOD CELL COUNT (BEAKER) (test culh=592) 10.6 K/ L 3.5-10.5 RED BLOOD CELL COUNT (BEAKER) (test wrwq=315) 3.45 M/ L 3.93-5.22 HEMOGLOBIN (BEAKER) (test lxtd=893) 10.8 GM/DL 11.2-15.7 HEMATOCRIT (BEAKER) (test mtez=636) 32.9 % 34.1-44.9 MEAN CORPUSCULAR VOLUME (BEAKER) (test gwsz=661) 95.4 fL 79.4-94.8 MEAN CORPUSCULAR HEMOGLOBIN (BEAKER) (test 31.3 pg 25.6-32.2 xkev=173) MEAN CORPUSCULAR HEMOGLOBIN CONC (BEAKER) (test 32.8 GM/DL 32.2-35.5 xjrr=368) RED CELL DISTRIBUTION WIDTH (BEAKER) (test 16.1 % 11.7-14.4 sqgj=041) PLATELET COUNT (BEAKER) (test lsss=033) 177 K/CU MM 150-450 MEAN PLATELET VOLUME (BEAKER) (test mzok=495) 11.2 fL 9.4-12.3 NUCLEATED RED BLOOD CELLS (BEAKER) (test 0 /100 WBC 0-0 cttr=844) [id number] 07:43:00 Test Item Value Reference Range Comments MAGNESIUM (BEAKER) (test wkpq=736) 1.6 mg/dL 1.6-2.6 BASIC METABOLIC [id number] 07:43:00 Test Item Value Reference Range Comments SODIUM (BEAKER) (test 136 meq/L 136-145 hkxz=694) POTASSIUM (BEAKER) (test 3.6 meq/L 3.5-5.1 jbrq=234) CHLORIDE (BEAKER) (test 102 meq/L 98-107 mmym=348) CO2 (BEAKER) (test 29 meq/L 22-29 xbft=060) BLOOD UREA NITROGEN 10 mg/dL 7-21 (BEAKER) (test uimi=329) CREATININE (BEAKER) (test 0.74 mg/dL 0.57-1.25 jnfl=199) GLUCOSE RANDOM (BEAKER) 134 mg/dL 70-105 (test fwva=446) CALCIUM (BEAKER) (test 9.9 mg/dL 8.4-10.2 acld=949) EGFR (BEAKER) (test 76 mL/min/1.73 sq m ESTIMATED GFR IS NOT aehg=4707) ACCURATE CREATININE CLEARANCE IN PREDICTING GLOMERULAR FILTRATION RATE. ESTIMATED GFR IS NOT APPLICABLE FOR DIALYSIS PATIENTS. HEPATIC FUNCTION [id number] 07:43:00 Test Item Value Reference Range Comments TOTAL PROTEIN (BEAKER) (test lbdb=111) 5.2 gm/dL 6.0-8.3 ALBUMIN (BEAKER) (test pdqp=1774) 2.8 g/dL 3.5-5.0 BILIRUBIN TOTAL (BEAKER) (test muxm=581) 0.5 mg/dL 0.2-1.2 BILIRUBIN DIRECT (BEAKER) (test vgau=819) 0.3 mg/dL 0.1-0.5 ALKALINE PHOSPHATASE (BEAKER) (test nanf=308) 76 U/L 40-150 AST (SGOT) (BEAKER) (test ergs=484) 21 U/L 5-34 ALT (SGPT) (BEAKER) (test vnjx=035) 17 U/L 6-55 POCT-GLUCOSE [id number] 07:24:00 Test Item Value Reference Range Comments POC-GLUCOSE METER (BEAKER) 144 mg/dL 70-110 TESTED AT [address] (test rrwh=6811) [place] [id number] POCT-GLUCOSE [id number] 23:39:00 Test Item Value Reference Range Comments POC-GLUCOSE METER (BEAKER) 159 mg/dL 70-110 TESTED AT [address] (test vtnr=2941) [facility] [address] POCT-GLUCOSE [id number] 17:20:00 Test Item Value Reference Range Comments POC-GLUCOSE METER (BEAKER) 168 mg/dL 70-110 TESTED AT [address] (test wmse=8900) [facility] [address] COMPREHENSIVE METABOLIC [id number] 13:35:00 Test Item Value Reference Range Comments TOTAL PROTEIN (BEAKER) 5.4 gm/dL 6.0-8.3 (test wapu=331) ALBUMIN (BEAKER) (test 2.9 g/dL 3.5-5.0 tspx=5372) ALKALINE PHOSPHATASE 86 U/L 40-150 (BEAKER) (test mmze=327) BILIRUBIN TOTAL (BEAKER) 0.4 mg/dL 0.2-1.2 (test gilx=916) SODIUM (BEAKER) (test 135 meq/L 136-145 nidp=200) POTASSIUM (BEAKER) (test 3.7 meq/L 3.5-5.1 yasw=548) CHLORIDE (BEAKER) (test 102 meq/L 98-107 sphn=329) CO2 (BEAKER) (test 28 meq/L 22-29 sxfj=132) BLOOD UREA NITROGEN 10 mg/dL 7-21 (BEAKER) (test svdc=725) CREATININE (BEAKER) (test 0.83 mg/dL 0.57-1.25 yqqv=132) GLUCOSE RANDOM (BEAKER) 150 mg/dL 70-105 (test oiet=129) CALCIUM (BEAKER) (test 10.0 mg/dL 8.4-10.2 ulch=272) AST (SGOT) (BEAKER) (test 25 U/L 5-34 crrx=190) ALT (SGPT) (BEAKER) (test 23 U/L 6-55 hyxv=236) EGFR (BEAKER) (test 66 mL/min/1.73 sq m ESTIMATED GFR IS NOT kbgk=8298) ACCURATE CREATININE CLEARANCE IN PREDICTING GLOMERULAR FILTRATION RATE. ESTIMATED GFR IS NOT APPLICABLE FOR DIALYSIS PATIENTS. CBC W/PLT COUNT & AUTO [id number] 13:14:00 Test Item Value Reference Range Comments WHITE BLOOD CELL COUNT (BEAKER) (test vdnl=005) 12.9 K/ L 3.5-10.5 RED BLOOD CELL COUNT (BEAKER) (test stap=820) 3.74 M/ L 3.93-5.22 HEMOGLOBIN (BEAKER) (test iwyk=811) 11.6 GM/DL 11.2-15.7 HEMATOCRIT (BEAKER) (test kcgk=953) 35.0 % 34.1-44.9 MEAN CORPUSCULAR VOLUME (BEAKER) (test bfvq=437) 93.6 fL 79.4-94.8 MEAN CORPUSCULAR HEMOGLOBIN (BEAKER) (test 31.0 pg 25.6-32.2 zpsu=301) MEAN CORPUSCULAR HEMOGLOBIN CONC (BEAKER) (test 33.1 GM/DL 32.2-35.5 pros=767) RED CELL DISTRIBUTION WIDTH (BEAKER) (test 16.0 % 11.7-14.4 kcca=706) PLATELET COUNT (BEAKER) (test aszi=770) 165 K/CU MM 150-450 MEAN PLATELET VOLUME (BEAKER) (test dccc=474) 10.1 fL 9.4-12.3 NUCLEATED RED BLOOD CELLS (BEAKER) (test 0 /100 WBC 0-0 xxiy=921) NEUTROPHILS RELATIVE PERCENT (BEAKER) (test 84 % myjv=220) LYMPHOCYTES RELATIVE PERCENT (BEAKER) (test 7 % eopb=304) MONOCYTES RELATIVE PERCENT (BEAKER) (test 7 % exdx=674) EOSINOPHILS RELATIVE PERCENT (BEAKER) (test 2 % aczb=938) BASOPHILS RELATIVE PERCENT (BEAKER) (test 0 % jmgx=320) NEUTROPHILS ABSOLUTE COUNT (BEAKER) (test 10.89 K/ L 1.56-6.13 jqhe=801) LYMPHOCYTES ABSOLUTE COUNT (BEAKER) (test 0.90 K/ L 1.18-3.74 qcyk=077) MONOCYTES ABSOLUTE COUNT (BEAKER) (test 0.84 K/ L 0.24-0.36 hmbf=625) EOSINOPHILS ABSOLUTE COUNT (BEAKER) (test 0.20 K/ L 0.04-0.36 vojg=721) BASOPHILS ABSOLUTE COUNT (BEAKER) (test 0.05 K/ L 0.01-0.08 rrxa=653) IMMATURE GRANULOCYTES-RELATIVE PERCENT (BEAKER) 1 % 0-1 (test ftab=2406) POCT-GLUCOSE [id number] 12:12:00 Test Item Value Reference Range Comments POC-GLUCOSE METER (BEAKER) 154 mg/dL 70-110 TESTED AT [facility] [address] [place] [address] (test ixfg=4302) [facility] [address] BLOOD [id number] 08:00:00 Test Item Value Reference Range Comments CULTURE (BEAKER) (test pxiv=5373) No growth in 5 days BLOOD [id number] 08:00:00 Test Item Value Reference Range Comments CULTURE (BEAKER) (test apye=5314) No growth in 5 days POCT-GLUCOSE [id number] 07:45:00 Test Item Value Reference Range Comments POC-GLUCOSE METER (BEAKER) 115 mg/dL 70-110 TESTED AT [address] (test dcnk=8227) [place] [id number] POCT-GLUCOSE [id number] 23:02:00 Test Item Value Reference Range Comments POC-GLUCOSE METER (BEAKER) 90 mg/dL 70-110 TESTED AT [address] (test wwiw=3919) [place] [address] [place], [id number] 17:37:00INTRA OP IMAGINGReason for exam:->CBD STONESFINAL REPORT Fluoroscopy, less than 1 hour History:ERCP Comparison: none Findings:Fluoroscopic assistance was provided during ERCP. Fluoroscopic images taken were interpreted bythe referring clinician. Please see separate procedure note for full details. Total Fluoroscopy time: 79.2 seconds Number of fluoroscopic images obtained: Four Impression:Fluoroscopy assistance as described above. Signed: Enio Ley [facility] [place] Verified Date/ Time: 08/15/2018 17:37:26 Reading Location: [facility] C013X [facility] Consult Reading Room POCT-GLUCOSE [id number] 17:35:00 Test Item Value Reference Range Comments POC-GLUCOSE METER (BEAKER) 180 mg/dL 70-110 TESTED AT [address] (test tksl=0313) [place] [address] POCT-GLUCOSE [id number] 07:57:00 Test Item Value Reference Range Comments POC-GLUCOSE METER (BEAKER) 129 mg/dL 70-110 TESTED AT [address] (test zuea=6346) [place] [address] [id number] 06:01:00 Test Item Value Reference Range Comments MAGNESIUM (BEAKER) (test nhpb=350) 1.6 mg/dL 1.6-2.6 BASIC METABOLIC [id number] 06:01:00 Test Item Value Reference Range Comments SODIUM (BEAKER) (test 138 meq/L 136-145 rtrl=148) POTASSIUM (BEAKER) (test 3.8 meq/L 3.5-5.1 okqe=579) CHLORIDE (BEAKER) (test 108 meq/L 98-107 drbp=657) CO2 (BEAKER) (test 25 meq/L 22-29 jzfo=592) BLOOD UREA NITROGEN 7 mg/dL 7-21 (BEAKER) (test duoh=880) CREATININE (BEAKER) (test 0.77 mg/dL 0.57-1.25 iznm=531) GLUCOSE RANDOM (BEAKER) 123 mg/dL 70-105 (test mggn=962) CALCIUM (BEAKER) (test 10.0 mg/dL 8.4-10.2 virr=136) EGFR (BEAKER) (test 72 mL/min/1.73 sq m ESTIMATED GFR IS NOT xuqs=6869) ACCURATE CREATININE CLEARANCE IN PREDICTING GLOMERULAR FILTRATION RATE. ESTIMATED GFR IS NOT APPLICABLE FOR DIALYSIS PATIENTS. HEPATIC FUNCTION [id number] 06:01:00 Test Item Value Reference Range Comments TOTAL PROTEIN (BEAKER) (test pplu=004) 5.4 gm/dL 6.0-8.3 ALBUMIN (BEAKER) (test aplb=5488) 2.9 g/dL 3.5-5.0 BILIRUBIN TOTAL (BEAKER) (test cice=868) 0.5 mg/dL 0.2-1.2 BILIRUBIN DIRECT (BEAKER) (test mlng=660) 0.3 mg/dL 0.1-0.5 ALKALINE PHOSPHATASE (BEAKER) (test geox=765) 92 U/L 40-150 AST (SGOT) (BEAKER) (test zmyb=625) 33 U/L 5-34 ALT (SGPT) (BEAKER) (test pclw=200) 30 U/L 6-55 CBC (HEMOGRAM ONLY)2018-08-15 04:44:00 Test Item Value Reference Range Comments WHITE BLOOD CELL COUNT (BEAKER) (test wvmx=698) 11.8 K/ L 3.5-10.5 RED BLOOD CELL COUNT (BEAKER) (test ndld=644) 3.97 M/ L 3.93-5.22 HEMOGLOBIN (BEAKER) (test zywv=475) 12.6 GM/DL 11.2-15.7 HEMATOCRIT (BEAKER) (test unhx=836) 37.4 % 34.1-44.9 MEAN CORPUSCULAR VOLUME (BEAKER) (test tzdn=239) 94.2 fL 79.4-94.8 MEAN CORPUSCULAR HEMOGLOBIN (BEAKER) (test 31.7 pg 25.6-32.2 avie=131) MEAN CORPUSCULAR HEMOGLOBIN CONC (BEAKER) (test 33.7 GM/DL 32.2-35.5 kgca=849) RED CELL DISTRIBUTION WIDTH (BEAKER) (test 15.8 % 11.7-14.4 icxj=887) PLATELET COUNT (BEAKER) (test zsxz=272) 189 K/CU MM 150-450 MEAN PLATELET VOLUME (BEAKER) (test xphw=317) 10.7 fL 9.4-12.3 NUCLEATED RED BLOOD CELLS (BEAKER) (test 0 /100 WBC 0-0 gewh=698) POCT-GLUCOSE [id number] 23:38:00 Test Item Value Reference Range Comments POC-GLUCOSE METER (BEAKER) 137 mg/dL 70-110 TESTED AT [address] (test amqr=0757) [facility] [id number] POCT-GLUCOSE [id number] 12:13:00 Test Item Value Reference Range Comments POC-GLUCOSE METER (BEAKER) 159 mg/dL 70-110 TESTED AT [address] (test ghtd=2950) [facility] [id number] POCT-GLUCOSE [id number] 08:11:00 Test Item Value Reference Range Comments POC-GLUCOSE METER (BEAKER) 138 mg/dL 70-110 TESTED AT [address] (test igjp=3365) [facility] [id number] [id number] 06:01:00 Test Item Value Reference Range Comments MAGNESIUM (BEAKER) (test jlgq=046) 1.7 mg/dL 1.6-2.6 BASIC METABOLIC [id number] 06:01:00 Test Item Value Reference Range Comments SODIUM (BEAKER) (test 138 meq/L 136-145 pzkg=978) POTASSIUM (BEAKER) (test 3.8 meq/L 3.5-5.1 yqyt=896) CHLORIDE (BEAKER) (test 109 meq/L 98-107 sxlh=243) CO2 (BEAKER) (test 26 meq/L 22-29 uzzr=911) BLOOD UREA NITROGEN 10 mg/dL 7-21 (BEAKER) (test qowm=136) CREATININE (BEAKER) (test 0.80 mg/dL 0.57-1.25 qctq=123) GLUCOSE RANDOM (BEAKER) 106 mg/dL 70-105 (test iann=269) CALCIUM (BEAKER) (test 9.4 mg/dL 8.4-10.2 wimn=677) EGFR (BEAKER) (test 69 mL/min/1.73 sq m ESTIMATED GFR IS NOT nncc=5521) ACCURATE CREATININE CLEARANCE IN PREDICTING GLOMERULAR FILTRATION RATE. ESTIMATED GFR IS NOT APPLICABLE FOR DIALYSIS PATIENTS. HEPATIC FUNCTION [id number] 06:01:00 Test Item Value Reference Range Comments TOTAL PROTEIN (BEAKER) (test mhdt=360) 5.4 gm/dL 6.0-8.3 ALBUMIN (BEAKER) (test caha=4035) 2.9 g/dL 3.5-5.0 BILIRUBIN TOTAL (BEAKER) (test vnyu=546) 0.5 mg/dL 0.2-1.2 BILIRUBIN DIRECT (BEAKER) (test xmqn=679) 0.4 mg/dL 0.1-0.5 ALKALINE PHOSPHATASE (BEAKER) (test tukj=709) 105 U/L 40-150 AST (SGOT) (BEAKER) (test dwaa=002) 33 U/L 5-34 ALT (SGPT) (BEAKER) (test kvst=196) 31 U/L 6-55 CBC (HEMOGRAM ONLY)2018-08-14 05:10:00 Test Item Value Reference Range Comments WHITE BLOOD CELL COUNT (BEAKER) (test pjrp=098) 10.6 K/ L 3.5-10.5 RED BLOOD CELL COUNT (BEAKER) (test qhgm=213) 3.87 M/ L 3.93-5.22 HEMOGLOBIN (BEAKER) (test rpwb=485) 12.0 GM/DL 11.2-15.7 HEMATOCRIT (BEAKER) (test vkoo=411) 36.9 % 34.1-44.9 MEAN CORPUSCULAR VOLUME (BEAKER) (test rtzm=132) 95.3 fL 79.4-94.8 MEAN CORPUSCULAR HEMOGLOBIN (BEAKER) (test 31.0 pg 25.6-32.2 slcx=787) MEAN CORPUSCULAR HEMOGLOBIN CONC (BEAKER) (test 32.5 GM/DL 32.2-35.5 zjeu=121) RED CELL DISTRIBUTION WIDTH (BEAKER) (test 15.7 % 11.7-14.4 wfbt=061) PLATELET COUNT (BEAKER) (test sqio=038) 158 K/CU MM 150-450 MEAN PLATELET VOLUME (BEAKER) (test heyp=826) 11.0 fL 9.4-12.3 NUCLEATED RED BLOOD CELLS (BEAKER) (test 0 /100 WBC 0-0 hcrk=213) POCT-GLUCOSE [id number] 23:53:00 Test Item Value Reference Range Comments POC-GLUCOSE METER (BEAKER) 115 mg/dL 70-110 TESTED AT [address] (test mypx=5986) [place] [address] POCT-GLUCOSE [id number] 16:48:00 Test Item Value Reference Range Comments POC-GLUCOSE METER (BEAKER) 83 mg/dL 70-110 TESTED AT [address] (test yjwq=2848) [place] [address] POCT-GLUCOSE [id number] 13:19:00 Test Item Value Reference Range Comments POC-GLUCOSE METER (BEAKER) 102 mg/dL 70-110 TESTED AT [address] (test kizf=7937) [place] [id number] POCT-GLUCOSE [id number] 12:02:00 Test Item Value Reference Range Comments POC-GLUCOSE METER (BEAKER) 95 mg/dL 70-110 TESTED AT [address] (test iahb=2481) [place] [id number] POCT-GLUCOSE [id number] 07:22:00 Test Item Value Reference Range Comments POC-GLUCOSE METER (BEAKER) 109 mg/dL 70-110 TESTED AT [address] (test jxer=7211) [place] [address] [id number] 04:31:00 Test Item Value Reference Range Comments MAGNESIUM (BEAKER) (test 1.7 mg/dL 1.6-2.6 Specimen slightly hemolyzed cbyt=542) BASIC METABOLIC [id number] 04:31:00 Test Item Value Reference Range Comments SODIUM (BEAKER) (test 140 meq/L 136-145 kluz=650) POTASSIUM (BEAKER) (test 3.6 meq/L 3.5-5.1 Specimen slightly hzeh=942) hemolyzed CHLORIDE (BEAKER) (test 111 meq/L 98-107 yjxl=768) CO2 (BEAKER) (test 24 meq/L 22-29 baat=706) BLOOD UREA NITROGEN 12 mg/dL 7-21 (BEAKER) (test yhlx=855) CREATININE (BEAKER) (test 0.79 mg/dL 0.57-1.25 Specimen slightly atbw=348) hemolyzed GLUCOSE RANDOM (BEAKER) 110 mg/dL 70-105 (test zgfe=118) CALCIUM (BEAKER) (test 9.5 mg/dL 8.4-10.2 ookm=804) EGFR (BEAKER) (test 70 mL/min/1.73 sq m ESTIMATED GFR IS NOT wenb=9714) ACCURATE CREATININE CLEARANCE IN PREDICTING GLOMERULAR FILTRATION RATE. ESTIMATED GFR IS NOT APPLICABLE FOR DIALYSIS PATIENTS. HEPATIC FUNCTION [id number] 04:31:00 Test Item Value Reference Range Comments TOTAL PROTEIN (BEAKER) (test 5.2 gm/dL 6.0-8.3 Specimen slightly hemolyzed wlyk=569) ALBUMIN (BEAKER) (test 2.7 g/dL 3.5-5.0 Specimen slightly hemolyzed qwak=9762) BILIRUBIN TOTAL (BEAKER) (test 0.7 mg/dL 0.2-1.2 Specimen slightly hemolyzed gnyw=765) BILIRUBIN DIRECT (BEAKER) (test 0.3 mg/dL 0.1-0.5 Specimen slightly hemolyzed ojcg=352) ALKALINE PHOSPHATASE (BEAKER) 118 U/L 40-150 (test wfhd=385) AST (SGOT) (BEAKER) (test 52 U/L 5-34 Specimen slightly hemolyzed algo=509) ALT (SGPT) (BEAKER) (test 43 U/L 6-55 Specimen slightly hemolyzed myby=706) CBC (HEMOGRAM ONLY)2018-08-13 03:56:00 Test Item Value Reference Range Comments WHITE BLOOD CELL COUNT (BEAKER) (test clab=873) 9.7 K/ L 3.5-10.5 RED BLOOD CELL COUNT (BEAKER) (test tgap=463) 3.51 M/ L 3.93-5.22 HEMOGLOBIN (BEAKER) (test bdel=708) 11.0 GM/DL 11.2-15.7 HEMATOCRIT (BEAKER) (test fkjr=531) 33.1 % 34.1-44.9 MEAN CORPUSCULAR VOLUME (BEAKER) (test xxqk=463) 94.3 fL 79.4-94.8 MEAN CORPUSCULAR HEMOGLOBIN (BEAKER) (test 31.3 pg 25.6-32.2 bkbm=274) MEAN CORPUSCULAR HEMOGLOBIN CONC (BEAKER) (test 33.2 GM/DL 32.2-35.5 hyvy=496) RED CELL DISTRIBUTION WIDTH (BEAKER) (test 15.3 % 11.7-14.4 bumv=176) PLATELET COUNT (BEAKER) (test ubjj=972) 128 K/CU MM 150-450 MEAN PLATELET VOLUME (BEAKER) (test igpv=912) 11.1 fL 9.4-12.3 NUCLEATED RED BLOOD CELLS (BEAKER) (test 0 /100 WBC 0-0 nxgj=962) POCT-GLUCOSE [id number] 22:11:00 Test Item Value Reference Range Comments POC-GLUCOSE METER (BEAKER) 138 mg/dL 70-110 TESTED AT [facility] [address] [facility] (test hbyj=2826) [facility] [address] POCT-GLUCOSE [id number] 16:28:00 Test Item Value Reference Range Comments POC-GLUCOSE METER (BEAKER) 155 mg/dL 70-110 TESTED AT [address] (test nalr=4783) [facility] [address] [address], [id number] 13:32:00FINAL REPORT CT abdomen and pelvis without [...] Ley Verified Date/Time: 08/12/2018 13:32:12 Reading Location: [facility] Diagnostic Imaging Reading Room - [place] [address], BRAIN, WITHOUT [id number] 12:57:00FINAL REPORT CT, BRAIN, WITHOUT CONTRAST CLINICAL [...] Motta Verified Date/Time: 2018 12:57:37 Reading Location: [facility] Radiology Reading Room POCT -GLUCOSE [id number] 12:48:00 Test Item Value Reference Range Comments POC-GLUCOSE METER (BEAKER) 156 mg/dL 70-110 TESTED AT [address] (test wvxb=0867) [facility] [address] POCT-GLUCOSE [id number] 07:16:00 Test Item Value Reference Range Comments POC-GLUCOSE METER (BEAKER) 157 mg/dL 70-110 TESTED AT [facility] [address] (test azmd=1897) [facility] [address] VITAMIN [id number] 05:53:00 Test Item Value Reference Range Comments VITAMIN B12 (BEAKER) (test omez=915) 1063 pg/mL 213-816 [id number] 05:27:00 Test Item Value Reference Range Comments MAGNESIUM (BEAKER) (test xghh=214) 1.7 mg/dL 1.6-2.6 BASIC METABOLIC [id number] 05:27:00 Test Item Value Reference Range Comments SODIUM (BEAKER) (test 140 meq/L 136-145 rosc=611) POTASSIUM (BEAKER) (test 3.6 meq/L 3.5-5.1 wquk=800) CHLORIDE (BEAKER) (test 109 meq/L 98-107 tsfe=599) CO2 (BEAKER) (test 27 meq/L 22-29 anor=009) BLOOD UREA NITROGEN 16 mg/dL 7-21 (BEAKER) (test dixm=936) CREATININE (BEAKER) (test 0.88 mg/dL 0.57-1.25 uuoz=054) GLUCOSE RANDOM (BEAKER) 152 mg/dL 70-105 (test itpx=360) CALCIUM (BEAKER) (test 9.7 mg/dL 8.4-10.2 gtte=581) EGFR (BEAKER) (test 62 mL/min/1.73 sq m ESTIMATED GFR IS NOT qdqh=8640) ACCURATE CREATININE CLEARANCE IN PREDICTING GLOMERULAR FILTRATION RATE. ESTIMATED GFR IS NOT APPLICABLE FOR DIALYSIS PATIENTS. HEPATIC FUNCTION [id number] 05:27:00 Test Item Value Reference Range Comments TOTAL PROTEIN (BEAKER) (test xqmb=216) 5.9 gm/dL 6.0-8.3 ALBUMIN (BEAKER) (test vqme=5054) 3.2 g/dL 3.5-5.0 BILIRUBIN TOTAL (BEAKER) (test ropi=373) 1.1 mg/dL 0.2-1.2 BILIRUBIN DIRECT (BEAKER) (test cwkb=832) 0.7 mg/dL 0.1-0.5 ALKALINE PHOSPHATASE (BEAKER) (test sqzv=545) 77 U/L 40-150 AST (SGOT) (BEAKER) (test npkz=628) 26 U/L 5-34 ALT (SGPT) (BEAKER) (test kjax=489) 19 U/L 6-55 LACTIC ACID, [id number] 05:12:00 Test Item Value Reference Range Comments LACTATE BLOOD VENOUS (2) 0.9 mmol/L 0.5-2.2 Specimen slightly hemolyzed (BEAKER) (test qvzp=5257) CBC (HEMOGRAM ONLY)2018-08-12 05:00:00 Test Item Value Reference Range Comments WHITE BLOOD CELL COUNT (BEAKER) (test bmqo=721) 12.8 K/ L 3.5-10.5 RED BLOOD CELL COUNT (BEAKER) (test egcf=026) 3.82 M/ L 3.93-5.22 HEMOGLOBIN (BEAKER) (test derq=452) 12.1 GM/DL 11.2-15.7 HEMATOCRIT (BEAKER) (test kxkw=370) 36.4 % 34.1-44.9 MEAN CORPUSCULAR VOLUME (BEAKER) (test bswu=984) 95.3 fL 79.4-94.8 MEAN CORPUSCULAR HEMOGLOBIN (BEAKER) (test 31.7 pg 25.6-32.2 nqbh=734) MEAN CORPUSCULAR HEMOGLOBIN CONC (BEAKER) (test 33.2 GM/DL 32.2-35.5 tyiv=367) RED CELL DISTRIBUTION WIDTH (BEAKER) (test 15.3 % 11.7-14.4 xeew=464) PLATELET COUNT (BEAKER) (test wrur=259) 154 K/CU MM 150-450 MEAN PLATELET VOLUME (BEAKER) (test vdbn=138) 11.0 fL 9.4-12.3 NUCLEATED RED BLOOD CELLS (BEAKER) (test 0 /100 WBC 0-0 kapv=617) TROPONIN [id number] 01:40:00 Test Item Value Reference Range Comments TROPONIN I (BEAKER) (test zwoj=413) 0.02 ng/mL 0.00-0.03 Troponin I (TnI) levels [...] acidosis, acute neurological disease, and persistent tachyarrhythmia.POCT-GLUCOSE [id number] 22:32:00 Test Item Value Reference Range Comments POC-GLUCOSE METER (BEAKER) 154 mg/dL 70-110 TESTED AT [address] (test mhpz=2302) [place] [address] [id number] 22:27:00 Test Item Value Reference Range Comments PROCALCITONIN (BEAKER) (test uvdc=4411) < ng/mL <0.05 SEPSIS RISK (ng/mL)Low: 0.05-0.50Intermediate: 0.51-2.00High: & gt;=2.01TROPONIN [id number] 18:31:00 Test Item Value Reference Range Comments TROPONIN I (BEAKER) (test trtf=489) 0.01 ng/mL 0.00-0.03 Troponin I (TnI) levels [...] acidosis, acute neurological disease, and persistent tachyarrhythmia.POCT-GLUCOSE [id number] 12:21:00 Test Item Value Reference Range Comments POC-GLUCOSE METER (BEAKER) 178 mg/dL 70-110 TESTED AT [address] (test cpbo=7883) [place] [address] RAD, ABDOMEN/KUB, 1 VIEW [id number] 11:42:00Reason for exam:->abdominal painShould this be performed [...] Verified Date/ Time: 08/11/2018 11:42:12 Reading Location: [facility] Radiology Reading Room POCT -BLOOD GASES, [id number] 09:41:00 Test Item Value Reference Range Comments TEMP, CELSIUS-POC (BEAKER) 36.9 (test kaww=8467) FIO2-POC (BEAKER) (test 28 TESTED AT [place] [address] [address] gypj=7915) [place] [id number] PH, VENOUS-POC (BEAKER) 7.344 7.320-7.420 (test bima=7089) PCO2, VENOUS-POC (BEAKER) 48.8 mm Hg 41.0-51.0 (test nnij=3706) PO2, VENOUS-POC (BEAKER) 36.0 mm Hg 25.0-40.0 (test kpgr=5348) SO2, VENOUS-POC (BEAKER) 66.0 % 40.0-70.0 (test azyn=2224) HCO3, VENOUS-POC (BEAKER) 26.6 meq/L 21.0-29.0 (test zkkz=2042) BASE EXCESS, VENOUS-POC 1.0 meq/L -2.0-3.0 (BEAKER) (test iadb=9820) [id number] 09:41:00 Test Item Value Reference Range Comments POC-SODIUM (BEAKER) (test 142 meq/L 135-148 TESTED AT [place] [address] [address] kjdk=7632) [place] [id number] [id number] 09:41:00 Test Item Value Reference Range Comments POC-POTASSIUM (BEAKER) (test 3.6 meq/L 3.6-5.5 TESTED AT [place] [address] [address] tjme=0245) [place] [address] [id number] 09:41:00 Test Item Value Reference Range Comments POC-GLUCOSE (BEAKER) (test 165 mg/dL 70-110 TESTED AT [place] [address] [address] ivxc=7942) [place] [address] POCT-CALCIUM [id number] 09:41:00 Test Item Value Reference Range Comments POC-CALCIUM IONIZED (BEAKER) 1.50 mmol/L 1.12-1.27 TESTED AT [address] (test ooxa=4919) [place] [address] [id number] 09:41:00 Test Item Value Reference Range Comments POC-HEMATOCRIT (BEAKER) (test 34 % 36-45 TESTED AT [address] bxvs=2418) [place] [address] [id number] 09:41:00 Test Item Value Reference Range Comments POC-HEMOGLOBIN (BEAKER) 11.6 g/dL 12.0-15.0 TESTED AT [address] (test eqah=6844) [place] [address]TESTED AT [place] [address] POCT-LACTIC ACID, [id number] 09:41:00 Test Item Value Reference Range Comments POC-LACTIC ACID, VENOUS 0.9 mmol/L 0.9-1.7 TESTED AT [address] (BEAKER) (test hxer=9103) [place] [address] URINALYSIS W/ REFLEX URINE [id number] 09:28:00 Test Item Value Reference Range Comments COLOR (BEAKER) (test hhab=640) Yellow CLARITY (BEAKER) (test wied=707) Clear SPECIFIC GRAVITY UA (BEAKER) (test qkjg=356) 1.012 1.001-1.035 PH UA (BEAKER) (test wbpl=091) 6.0 5.0-8.0 PROTEIN UA (BEAKER) (test jwvc=173) 10 mg/dL Negative GLUCOSE UA (BEAKER) (test mmtx=225) 50 mg/dL Negative KETONES UA (BEAKER) (test hvwh=434) 20 mg/dL Negative BILIRUBIN UA (BEAKER) (test hzmk=894) Negative Negative BLOOD UA (BEAKER) (test ywgi=522) Moderate Negative NITRITE UA (BEAKER) (test cxmn=690) Negative Negative LEUKOCYTE ESTERASE UA (BEAKER) (test xqed=769) Negative Negative UROBILINOGEN UA (BEAKER) (test kwkk=050) 0.2 mg/dL 0.2-1.0 RBC UA (BEAKER) (test cvhx=713) 105 /HPF WBC UA (BEAKER) (test ulhu=164) 2 /HPF SOURCE(BEAKER) (test yblp=4397) POCT-GLUCOSE [id number] 09:17:00 Test Item Value Reference Range Comments POC-GLUCOSE METER (BEAKER) 172 mg/dL 70-110 TESTED AT [facility] [address] (test kzex=1745) [facility] [address] [id number] 06:43:00 Test Item Value Reference Range Comments MAGNESIUM (BEAKER) (test ldhb=305) 1.7 mg/dL 1.6-2.6 BASIC METABOLIC [id number] 06:43:00 Test Item Value Reference Range Comments SODIUM (BEAKER) (test 140 meq/L 136-145 zkas=740) POTASSIUM (BEAKER) (test 3.7 meq/L 3.5-5.1 torc=307) CHLORIDE (BEAKER) (test 110 meq/L 98-107 lniu=673) CO2 (BEAKER) (test 25 meq/L 22-29 hzmm=647) BLOOD UREA NITROGEN 16 mg/dL 7-21 (BEAKER) (test ijqi=536) CREATININE (BEAKER) (test 0.78 mg/dL 0.57-1.25 bkcl=152) GLUCOSE RANDOM (BEAKER) 163 mg/dL 70-105 (test gbhm=186) CALCIUM (BEAKER) (test 10.3 mg/dL 8.4-10.2 zvau=755) EGFR (BEAKER) (test 71 mL/min/1.73 sq m ESTIMATED GFR IS NOT thyb=7982) ACCURATE CREATININE CLEARANCE IN PREDICTING GLOMERULAR FILTRATION RATE. ESTIMATED GFR IS NOT APPLICABLE FOR DIALYSIS PATIENTS. HEPATIC FUNCTION [id number] 06:43:00 Test Item Value Reference Range Comments TOTAL PROTEIN (BEAKER) (test rmaz=571) 5.8 gm/dL 6.0-8.3 ALBUMIN (BEAKER) (test tqgm=0241) 3.2 g/dL 3.5-5.0 BILIRUBIN TOTAL (BEAKER) (test zosp=728) 1.1 mg/dL 0.2-1.2 BILIRUBIN DIRECT (BEAKER) (test hamc=591) 0.7 mg/dL 0.1-0.5 ALKALINE PHOSPHATASE (BEAKER) (test jbme=262) 76 U/L 40-150 AST (SGOT) (BEAKER) (test rebv=918) 23 U/L 5-34 ALT (SGPT) (BEAKER) (test sswm=366) 20 U/L 6-55 CBC (HEMOGRAM ONLY)2018-08-11 05:56:00 Test Item Value Reference Range Comments WHITE BLOOD CELL COUNT (BEAKER) (test gnjx=866) 15.2 K/ L 3.5-10.5 RED BLOOD CELL COUNT (BEAKER) (test xekq=318) 3.68 M/ L 3.93-5.22 HEMOGLOBIN (BEAKER) (test dtxe=182) 11.5 GM/DL 11.2-15.7 HEMATOCRIT (BEAKER) (test topo=577) 35.4 % 34.1-44.9 MEAN CORPUSCULAR VOLUME (BEAKER) (test xfyx=429) 96.2 fL 79.4-94.8 MEAN CORPUSCULAR HEMOGLOBIN (BEAKER) (test 31.3 pg 25.6-32.2 aznq=859) MEAN CORPUSCULAR HEMOGLOBIN CONC (BEAKER) (test 32.5 GM/DL 32.2-35.5 agvh=913) RED CELL DISTRIBUTION WIDTH (BEAKER) (test 15.8 % 11.7-14.4 ecye=151) PLATELET COUNT (BEAKER) (test skwa=889) 139 K/CU MM 150-450 MEAN PLATELET VOLUME (BEAKER) (test tvfz=721) 11.3 fL 9.4-12.3 NUCLEATED RED BLOOD CELLS (BEAKER) (test 0 /100 WBC 0-0 yqns=661) TROPONIN [id number] 01:18:00 Test Item Value Reference Range Comments TROPONIN I (BEAKER) (test juhk=344) 0.04 ng/mL 0.00-0.03 Troponin I (TnI) levels [...] failure, acidosis, acute neurological disease, and persistent tachyarrhythmia.[id number] 01:13:00 Test Item Value Reference Range Comments MAGNESIUM (BEAKER) (test jqbp=703) 1.6 mg/dL 1.6-2.6 BASIC METABOLIC [id number] 01:13:00 Test Item Value Reference Range Comments SODIUM (BEAKER) (test 138 meq/L 136-145 fhsh=072) POTASSIUM (BEAKER) (test 3.7 meq/L 3.5-5.1 inml=704) CHLORIDE (BEAKER) (test 109 meq/L 98-107 yoho=765) CO2 (BEAKER) (test 26 meq/L 22-29 hijw=637) BLOOD UREA NITROGEN 15 mg/dL 7-21 (BEAKER) (test btjr=796) CREATININE (BEAKER) (test 0.74 mg/dL 0.57-1.25 yqym=990) GLUCOSE RANDOM (BEAKER) 147 mg/dL 70-105 (test eieu=308) CALCIUM (BEAKER) (test 10.0 mg/dL 8.4-10.2 qkcy=658) EGFR (BEAKER) (test 76 mL/min/1.73 sq m ESTIMATED GFR IS NOT eeho=0701) ACCURATE CREATININE CLEARANCE IN PREDICTING GLOMERULAR FILTRATION RATE. ESTIMATED GFR IS NOT APPLICABLE FOR DIALYSIS PATIENTS. HEPATIC FUNCTION [id number] 01:13:00 Test Item Value Reference Range Comments TOTAL PROTEIN (BEAKER) (test fqfa=462) 5.8 gm/dL 6.0-8.3 ALBUMIN (BEAKER) (test jrnj=9393) 3.1 g/dL 3.5-5.0 BILIRUBIN TOTAL (BEAKER) (test kqob=619) 1.0 mg/dL 0.2-1.2 BILIRUBIN DIRECT (BEAKER) (test abap=290) 0.6 mg/dL 0.1-0.5 ALKALINE PHOSPHATASE (BEAKER) (test evjz=920) 75 U/L 40-150 AST (SGOT) (BEAKER) (test ncmg=697) 20 U/L 5-34 ALT (SGPT) (BEAKER) (test vxps=683) 18 U/L 6-55 [id number] 01:13:00 Test Item Value Reference Range Comments LIPASE (BEAKER) (test ztwq=300) 23 U/L 8-78 RAD, CHEST, 1 VIEW, NON [id number] 23:47:00Reason for exam:->piccShould this be performed at [...] MDReport Verified Date/Time: 08/10/2018 23:47:27 Reading Location: [facility] [id number] Consult Reading Room POCT-GLUCOSE [id number] 23:29:00 Test Item Value Reference Range Comments POC-GLUCOSE METER (BEAKER) 158 mg/dL 70-110 TESTED AT [facility] [address] [facility] (test hldm=4873) [facility] [address] HEMOGLOBIN [id number] 22:17:00 Test Item Value Reference Range Comments HEMOGLOBIN A1C (BEAKER) (test qlgt=765) 7.5 % 4.3-6.1 T4, [id number] 20:54:00 Test Item Value Reference Range Comments FREE T4 (BEAKER) (test ohjv=514) 0.86 ng/dL 0.70-1.48 TSH/FREE T4 IF [id number] 20:22:00 Test Item Value Reference Range Comments THYROID STIMULATING HORMONE (BEAKER) (test 0.30 uIU/mL 0.35-4.94 fpls=155) [id number] 19:31:00 Test Item Value Reference Range Comments AMMONIA (BEAKER) (test gzcf=978) 29 mol/L 18-72 B-TYPE NATRIURETIC FACTOR (BNP)2018-08-10 18:48:00 Test Item Value Reference Range Comments B-TYPE NATRIURETIC PEPTIDE (BEAKER) (test 876 pg/mL 0-100 ompt=381) LACTIC ACID, [id number] 18:47:00 Test Item Value Reference Range Comments LACTATE BLOOD VENOUS (2) 1.0 mmol/L 0.5-2.2 Specimen slightly hemolyzed (BEAKER) (test jmuj=1244) POCT-GLUCOSE [id number] 18:30:00 Test Item Value Reference Range Comments POC-GLUCOSE METER (BEAKER) 149 mg/dL 70-110 TESTED AT [facility] [address] (test yjjh=2699) [place] [address] [id number] 18:27:00 Test Item Value Reference Range Comments PROTIME (BEAKER) (test gfop=531) 14.8 seconds 11.9-14.2 INR (BEAKER) (test kwho=707) 1.2 <=5.9 PARTIAL THROMBOPLASTIN TIME (BEAKER) (test 30.3 seconds 22.5-36.0 pbbn=518) Effective 07/15/2018: PT Reference Range ChangeNew: 11.9-14.2 Previous: 11.7- 14.7RECOMMENDED COUMADIN/WARFARIN INR THERAPY RANGESSTANDARD DOSE: 2.0-3.0 Includes: PROPHYLAXIS for venous thrombosis, systemic embolization; TREATMENT for venous thrombosis and/or pulmonary embolus.HIGH RISK: Target INR is2.5-3.5 for patients wiht mechanical heart valves.CBC W/PLT COUNT & AUTO [id number] 18:08:00 Test Item Value Reference Range Comments WHITE BLOOD CELL COUNT (BEAKER) (test dvua=443) 15.4 K/ L 3.5-10.5 RED BLOOD CELL COUNT (BEAKER) (test boel=485) 3.77 M/ L 3.93-5.22 HEMOGLOBIN (BEAKER) (test qmln=081) 11.8 GM/DL 11.2-15.7 HEMATOCRIT (BEAKER) (test qvkm=550) 36.2 % 34.1-44.9 MEAN CORPUSCULAR VOLUME (BEAKER) (test msxg=767) 96.0 fL 79.4-94.8 MEAN CORPUSCULAR HEMOGLOBIN (BEAKER) (test 31.3 pg 25.6-32.2 disn=923) MEAN CORPUSCULAR HEMOGLOBIN CONC (BEAKER) (test 32.6 GM/DL 32.2-35.5 ebif=343) RED CELL DISTRIBUTION WIDTH (BEAKER) (test 16.1 % 11.7-14.4 wepy=138) PLATELET COUNT (BEAKER) (test rmir=983) 140 K/CU MM 150-450 MEAN PLATELET VOLUME (BEAKER) (test prap=691) 11.0 fL 9.4-12.3 NUCLEATED RED BLOOD CELLS (BEAKER) (test 0 /100 WBC 0-0 andj=737) NEUTROPHILS RELATIVE PERCENT (BEAKER) (test 82 % nwow=544) LYMPHOCYTES RELATIVE PERCENT (BEAKER) (test 8 % vryh=221) MONOCYTES RELATIVE PERCENT (BEAKER) (test 8 % gxbq=615) EOSINOPHILS RELATIVE PERCENT (BEAKER) (test 0 % rxdn=425) BASOPHILS RELATIVE PERCENT (BEAKER) (test 0 % yoro=071) NEUTROPHILS ABSOLUTE COUNT (BEAKER) (test 12.69 K/ L 1.56-6.13 llui=670) LYMPHOCYTES ABSOLUTE COUNT (BEAKER) (test 1.24 K/ L 1.18-3.74 wewl=307) MONOCYTES ABSOLUTE COUNT (BEAKER) (test 1.21 K/ L 0.24-0.36 wfds=454) EOSINOPHILS ABSOLUTE COUNT (BEAKER) (test 0.02 K/ L 0.04-0.36 lytx=990) BASOPHILS ABSOLUTE COUNT (BEAKER) (test 0.04 K/ L 0.01-0.08 cjds=336) IMMATURE GRANULOCYTES-RELATIVE PERCENT (BEAKER) 2 % 0-1 (test owfk=7819)
[2019-02-11] MEDS ORDERED: ONDANSETRON 4 MG/2 ML VIAL ONE (19:53)
[2019-02-11] MEDS ORDERED: NA CHLORIDE 0.9% 1,000 ML ONE (19:53)
[2019-02-11 20:05] LABS: Protime INR 1.16
[2019-02-11 20:15] LABS: Basophils % 0.6 % (0-1.3); Hematocrit 34.8 % (36.0-45.0); Lymphocytes % 10.2 % (15.3-44.8); MPV 8.3 fL (7.6-11.3); RBC Red Blood Cell Count 3.96 M/uL (3.86-4.86)
[2019-02-11 20:21] LABS: ALT/SGPT 20 U/L (12-78); AST/SGOT 17 U/L (15-37); Albumin 1.9 g/dL (3.4-5.0); Alkaline Phosphatase 124 U/L (45-117); BUN Blood Urea Nitrogen 12 mg/dL (7-18); Bicarbonate 28 mmol/L (21-32); Bilirubin Direct 0.1 mg/dL (0-0.2); Bilirubin Total 0.2 mg/dL (0.2-1.0); Glucose Level 116 mg/dL (74-106); NT PRO-BNP 1429 pg/mL (<450); Potassium 3.9 mmol/L (3.5-5.1); Protein, Total 7.1 g/dL (6.4-8.2); Sodium Level 139 mmol/L (136-145); Troponin (Emerg Dept Use Only) < 0.02 ng/mL (0.0-0.045)
--- NOTE | 2019-02-11 20:29 | EDPHYS ---
Physician Documentation [facility] Name: Judy Puri Age: 78 yrs Sex: Female : 1940 Arrival Date: 02/11/2019 Time: 17:00 Bed 25 Private MD: Roscoe Pino E ED Physician Buster Hawkins HPI: 02/11 20:20 This 78 yrs old Female presents to ER via EMS with complaints of weakness, raad pain and failure to thrive. 20:20 weak, cant care for self. Onset: The symptoms/episode began/occurred 2 week(s) ago. raad Severity of symptoms: At their worst the symptoms were moderate in the emergency department the symptoms are unchanged. The patient has not experienced similar symptoms in the past. Historical: - Allergies: 17:00 Codeine; em 17:00 Propoxyphene HCl; em - Home Meds: 17:00 Aspirin Oral [Active]; atorvastatin Oral [Active]; Celecoxib Oral [Active]; Furosemide em Oral [Active]; gabapentin Oral [Active]; Glipizide Oral [Active]; Hydrocodone-Acetaminophen Oral [Active]; losartan Oral [Active]; Metoprolol Tartrate Oral [Active]; Omeprazole Oral [Active]; pantoprazole Oral [Active]; 21:48 sucralfate 1 gram Oral tab 1 tab 4 times per day [Active]; bb - PMHx: 17:00 Arthritis; Atrial Fib; cardiac stent; Diabetes - NIDDM; GALLSTONES; Hypertension; em Myocardial infarction; - Immunization history:: Adult Immunizations unknown. - Social history:: Smoking status: unknown. - Ebola Screening: : Patient negative for fever greater than or equal to 101.5 degrees Fahrenheit, and additional compatible Ebola Virus Disease symptoms Patient denies exposure to infectious person Patient denies travel to an Ebola-affected area in the 21 days before illness onset No symptoms or risks identified at this time. - Family history:: not pertinent. ROS: 20:20 Eyes: Negative for injury, pain, redness, and discharge, ENT: Negative for injury, raad pain, and discharge, Neck: Negative for injury, pain, and swelling, Cardiovascular: Negative for chest pain, palpitations, and edema, Respiratory: Negative for shortness of breath, cough, wheezing, and pleuritic chest pain, Back: Negative for injury and pain, : Negative for injury, bleeding, discharge, and swelling, MS/Extremity: Negative for injury and deformity, Psych: Negative for depression, anxiety, suicide ideation, homicidal ideation, and hallucinations, Allergy/Immunology: Negative for hives, rash, and allergies, Endocrine: Negative for neck swelling, polydipsia, polyuria, polyphagia, and marked weight changes, Hematologic/Lymphatic: Negative for swollen nodes, abnormal bleeding, and unusual bruising. 20:20 Constitutional: Positive for body aches, fatigue, malaise, poor PO intake. 20:20 Cardiovascular: Positive for palpitations. 20:20 Abdomen/GI: Positive for abdominal pain, of the right upper quadrant, left upper quadrant, right lower quadrant and left lower quadrant, recent upper gi bleed. Exam: 20:20 Constitutional: This is a well developed, well nourished patient who is awake, alert, raad and in no acute distress. Head/Face: Normocephalic, atraumatic. Eyes: Pupils equal round and reactive to light, extra-ocular motions intact. Lids and lashes normal. Conjunctiva and sclera are non-icteric and not injected. Cornea within normal limits. Periorbital areas with no swelling, redness, or edema. Neck: Trachea midline, no thyromegaly or masses palpated, and no cervical lymphadenopathy. Supple, full range of motion without nuchal rigidity, or vertebral point tenderness. No Meningismus. Chest/axilla: Normal chest wall appearance and motion. Nontender with no deformity. No lesions are appreciated. Respiratory: Lungs have equal breath sounds bilaterally, clear to auscultation and percussion. No rales, rhonchi or wheezes noted. No increased work of breathing, no retractions or nasal flaring. Back: No spinal tenderness. No costovertebral tenderness. Full range of motion. Female : Normal external genitalia. MS/ Extremity: Pulses equal, no cyanosis. Neurovascular intact. Full, normal range of motion. Neuro: Awake and alert, GCS 15, oriented to person, place, time, and situation. Cranial nerves II-XII grossly intact. Motor strength 5/5 in all extremities. Sensory grossly intact. Cerebellar exam normal. Normal gait. Psych: Awake, alert, with orientation to person, place and time. Behavior, mood, and affect are within normal limits. 20:20 ENT: Exam is negative for 20:20 Cardiovascular: Rate: tachycardic, Rhythm: regular, Pulses: no pulse deficits are appreciated, Heart sounds: normal, normal S1and S2, no S3 or S4, no murmur, no rub, no gallop, murmur, not appreciated, Edema: is not appreciated, JVD: is not appreciated. Vital Signs: 17:00 BP 131 / 82; Pulse 102; Resp 18; Temp 98.0(O); Pulse Ox 98% on R/A; em 19:30 BP 123 / 77; Pulse 104; Resp 18; Pulse Ox 98% on R/A; wh 21:00 BP 120 / 75; Pulse 100; Resp 18; Pulse Ox 100% on R/A; wh MDM: 19:23 Patient medically screened. [facility] 20:23 Data reviewed: vital signs, nurses notes, lab test result(s), EKG, radiologic studies, [facility] CT scan, plain films. 02/11 18:47 Order name: Basic Metabolic Panel; Complete Time: 20:24 02/11 18:47 Order name: CBC with Diff; Complete Time: 20:24 02/11 18:47 Order name: LFT's; Complete Time: 20:24 02/11 18:47 Order name: Magnesium; Complete Time: 20:24 02/11 18:47 Order name: NT PRO-BNP; Complete Time: 20:24 02/11 18:47 Order name: PT-INR; Complete Time: 20:18 02/11 18:47 Order name: Troponin (emerg Dept Use Only); Complete Time: 20:24 02/11 19:34 Order name: Urine Culture [facility] 02/11 19:35 Order name: Lipase; Complete Time: 20:18 [facility] 02/11 21:08 Order name: Thyroid Stimulating Hormone [facility] [place] 02/11 21:09 Order name: Urinalysis [facility] [place] 02/11 21:09 Order name: CBC with Automated Diff [facility] [place] 02/11 21:09 Order name: CBC with Automated Diff [facility] [place] 02/11 21:09 Order name: Comprehensive Metabolic Panel [facility] [place] 02/11 18:47 Order name: EKG; Complete Time: 18:48 02/11 19:34 Order name: CT Head Brain wo Cont [facility] 02/11 20:28 Order name: Chest Abdomen Pelvis W Con CT: iv only [facility] 02/11 21:08 Order name: Heart Healthy [facility] [place] 02/11 21:09 Order name: Comprehensive Metabolic Panel [facility] [place] 02/11 21:09 Order name: Magnesium [facility] [place] 02/11 21:09 Order name: Magnesium [facility] [place] 02/11 21:09 Order name: Phosphorus [facility] [place] 02/11 21:09 Order name: Phosphorus [facility] [place] 02/11 21:12 Order name: Social Service Consult [facility] [place] 02/11 21:51 Order name: T4 Free [facility] [place] 02/11 18:47 Order name: Cardiac monitoring; Complete Time: 19:36 02/11 18:47 Order name: EKG - Nurse/Tech; Complete Time: 19:36 02/11 18:47 Order name: IV Saline Lock; Complete Time: 19:49 02/11 18:47 Order name: Labs collected and sent; Complete Time: 19:49 02/11 18:47 Order name: O2 Per Protocol; Complete Time: 19:36 02/11 18:47 Order name: O2 Sat Monitoring; Complete Time: 19:36 02/11 18:48 Order name: Urine Dipstick-Ancillary (obtain specimen); Complete Time: 02:24 02/11 20:24 Order name: IV Saline Lock - Large Bore; Complete Time: 20:40 [facility] Administered Medications: 19:49 Drug: NS 0.9% 1000 ml Route: IV; Rate: 125 ml/hr; Site: right antecubital; 22:22 Follow up: Response: No adverse reaction; IV Status: Infusion continued upon admission 19:55 Drug: Zofran 4 mg Route: IVP; Site: right antecubital; 22:21 Follow up: Response: No adverse reaction; Nausea is decreased 20:40 Drug: ProTONIX 40 mg Route: IVP; Site: right antecubital; 22:21 Follow up: Response: No adverse reaction 20:40 Drug: ProTONIX 40 mg Route: IVP; Site: right antecubital; 22:21 Follow up: Response: No adverse reaction Disposition: 02/11/19 20:28 Hospitalization ordered by Ernie Zavala for Inpatient Admission. 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 - Bed requested for Telemetry/MedSurg (Inpatient). - Status is Inpatient Admission. hb - Condition is Stable. - Problem is new. - Symptoms have improved. UTI on Admission? No Signatures: Dispatcher [employer] EDNE Buster Hawkins MD MD cha Munoz, Azeem, BILLING COLLECTIONS SPECIALIST BILLING COLLECTIONS SPECIALIST em Itzel Hodgson, NATALI HURST bb Lula Santoro, Jessica Fulton RN, RN RN Konstantin Maravilla Jose, RN RN ja1 Corrections: (The following items were deleted from the chart) 19:17 18:48 Chest Single View+RAD.RAD.BRZ ordered. [facility] 21:40 20:28 Hospitalization Ordered by Ernie Zavala MD for Inpatient Admission. Preliminary ja1 diagnosis is Weakness - nonambulatory; Type 2 diabetes mellitus; Gastrointestinal hemorrhage, unspecified - stable. Bed requested for Telemetry/MedSurg (Inpatient). Status is Inpatient Admission. Condition is Stable. Problem is new. Symptoms have improved. UTI on Admission? No. raad 23:04 21:40 02/11/2019 20:28 Hospitalization Ordered by Ernie Zavala MD for Inpatient raad Admission. Preliminary diagnosis is Weakness - nonambulatory; Type 2 diabetes mellitus; Gastrointestinal hemorrhage, unspecified - stable. Bed requested for [facility] ER HOLD. Status is Inpatient Admission. Condition is Stable. Problem is new. Symptoms have improved. UTI on Admission? No. ja1 02/12 06:00 02/11 23:04 02/11/2019 20:28 Hospitalization Ordered by Ernie Zavala MD for Inpatient ja1 Admission. 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 Bed requested for [facility] ER HOLD. Status is Inpatient Admission. Condition is Stable. Problem is new. Symptoms have improved. UTI on Admission? No. raad 02/12 09:24 06:00 02/11/2019 20:28 Hospitalization Ordered by Ernie Zavala MD for Inpatient hb Admission. 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 Bed requested for Telemetry/MedSurg (Inpatient). Status is Inpatient Admission. Condition is Stable. Problem is new. Symptoms have improved. UTI on Admission? No. ja1
--- NOTE | 2019-02-11 20:29 | ER ---
Nurse's Notes [facility] Name: Judy Puri Age: 78 yrs Sex: Female : 1940 Arrival Date: 02/11/2019 Time: 17:00 Bed 25 Private MD: Roscoe Pino E Diagnosis: Weakness-nonambulatory;Type 2 diabetes mellitus;Gastrointestinal hemorrhage, unspecified-stable;Pleural effusion in conditions classified elsewhere;Aneurysm of aorta in diseases classified elsewhere-4.2 ascending thoracic Presentation: 02/11 17:00 Presenting complaint: EMS states: called out for low blood sugar, BGL on scene was 109, em pt was found covered in feces and urine, reports he was trying to get patient into a halfway but no one will help, pt was recently discharged from the hospital for not eating, pt has not been up since hospital discharge, pt is A\\T\\Ox4. 17:00 Transition of care: patient was not received from another setting of care. Onset of em symptoms was February 08, 2019. Risk Assessment: Do you want to hurt yourself or someone else? Patient reports no desire to harm self or others. Initial Sepsis Screen: Does the patient meet any 2 criteria? HR > 90 bpm. No. Patient's initial sepsis screen is negative. Does the patient have a suspected source of infection? No. Patient's initial sepsis screen is negative. Care prior to arrival: None. 17:00 Method Of Arrival: EMS: [facility] em 17:05 Acuity: JONATHAN 3 iw Historical: - Allergies: 17:00 Codeine; em 17:00 Propoxyphene HCl; em - Home Meds: 17:00 Aspirin Oral [Active]; atorvastatin Oral [Active]; Celecoxib Oral [Active]; Furosemide em Oral [Active]; gabapentin Oral [Active]; Glipizide Oral [Active]; Hydrocodone-Acetaminophen Oral [Active]; losartan Oral [Active]; Metoprolol Tartrate Oral [Active]; Omeprazole Oral [Active]; pantoprazole Oral [Active]; 21:48 sucralfate 1 gram Oral tab 1 tab 4 times per day [Active]; bb - PMHx: 17:00 Arthritis; Atrial Fib; cardiac stent; Diabetes - NIDDM; GALLSTONES; Hypertension; em Myocardial infarction; - Immunization history:: Adult Immunizations unknown. - Social history:: Smoking status: unknown. - Ebola Screening: : Patient negative for fever greater than or equal to 101.5 degrees Fahrenheit, and additional compatible Ebola Virus Disease symptoms Patient denies exposure to infectious person Patient denies travel to an Ebola-affected area in the 21 days before illness onset No symptoms or risks identified at this time. - Family history:: not pertinent. Screenin:00 Fall Risk Ambulatory Aid- None/Bed Rest/Nurse Assist (0 pts). Gait- Impaired (20 pts.). em Mental Status- Overestimates/Forgets Limitations (15 pts.). Total Chan Fall Scale indicates Low Risk Score (25-44 pts). Side Rails Up X 2 Placed close to Nursing Station Family Present and informed to notify staff if they need to leave bedside. 17:58 Abuse screen: Denies threats or abuse. Tuberculosis screening: No symptoms or risk em factors identified. 19:15 Nutritional screening: No deficits noted. wh Assessment: 17:00 General: Appears uncomfortable, unkempt, malnourished, Behavior is calm, cooperative. em Pain: Complains of pain in "everywhere" Pain currently is 10 out of 10 on a pain scale. Neuro: Level of Consciousness is awake, alert, obeys commands, Oriented to person, place, time, situation, Appropriate for age. Cardiovascular: Patient's skin is warm and dry. Respiratory: Airway is patent Respiratory effort is even, unlabored, Respiratory pattern is regular, symmetrical. GI: Last BM was February 11, 2019. Derm: Wound noted dorsal aspect of right forearm Wound is skin tear Decubitus located on sacrum approximately 1.5 cm to 2.5 cm is stage II has erythematous edges is draining none noted. Musculoskeletal: Reports pain in right leg and left leg. 17:15 Reassessment: request to see Dr. Hawkins, charge nurse notified. em 17:25 Reassessment: soiled linen was removed, cleaned patient with warm water and Hibiclens, em applied new brief and gown. 19:05 Reassessment: refused x-ray, charge nurse notified. wh 19:30 Reassessment: Patient appears in no apparent distress at this time. Patient and/or family updated on plan of care and expected duration. Pain level reassessed. Patient is alert, oriented x 3, equal unlabored respirations, skin warm/dry/pink. 21:00 Reassessment: Patient appears in no apparent distress at this time. No changes from previously documented assessment. Patient and/or family updated on plan of care and expected duration. Pain level reassessed. Patient is alert, oriented x 3, equal unlabored respirations, skin warm/dry/pink. MD at bedside explaining POC need for admit. 21:30 Reassessment: CT scan called notified Pt Iv infiltrated, notified MD Hawkins stated they could do CT Scan without contrast. Vital Signs: 17:00 BP 131 / 82; Pulse 102; Resp 18; Temp 98.0(O); Pulse Ox 98% on R/A; em 19:30 BP 123 / 77; Pulse 104; Resp 18; Pulse Ox 98% on R/A; wh 21:00 BP 120 / 75; Pulse 100; Resp 18; Pulse Ox 100% on R/A; ED Course: 17:00 Patient arrived in ED. am2 17:00 Roscoe Pino MD is Private Physician. am2 17:00 Arm band placed on. em 17:00 Patient has correct armband on for positive identification. Placed in gown. Bed in low em position. Call light in reach. Side rails up X2. Adult w/ patient. Pulse ox on. NIBP on. 17:01 Azeem Lopez LVN is Primary Nurse. em 18:03 Triage completed. iw 19:23 Buster Hawkins MD is Attending Physician. raad 19:30 Inserted saline lock: 20 gauge in right antecubital area, using aseptic technique. Blood collected. By Itzel Hodgson Charge Nurse. 20:20 CT Head Brain wo Cont In Process Unspecified. EDMS 20:26 Ernie Zavala MD is Hospitalizing Provider. raad 21:39 CT completed. Pt tolerated procedure poorly. Patient moved to CT via stretcher. Patient eh moved back from CT. 22:15 Accessed peripheral vein via ultrasound, utilizing dynamic ultrasound technique using bb ,sterile technique, per hospital protocol. Good blood return. Flushes easily. 20 g 10 cm power glide. 22:21 No provider procedures requiring assistance completed. Patient admitted, IV remains in place. 02/12 08:56 Primary Nurse role handed off by Azeem Lopez LVN 08:56 Argenis Jimenez, RN is Primary Nurse. Administered Medications: 02/11 19:49 Drug: NS 0.9% 1000 ml Route: IV; Rate: 125 ml/hr; Site: right antecubital; 22:22 Follow up: Response: No adverse reaction; IV Status: Infusion continued upon admission 19:55 Drug: Zofran 4 mg Route: IVP; Site: right antecubital; 22:21 Follow up: Response: No adverse reaction; Nausea is decreased 20:40 Drug: ProTONIX 40 mg Route: IVP; Site: right antecubital; 22:21 Follow up: Response: No adverse reaction 20:40 Drug: ProTONIX 40 mg Route: IVP; Site: right antecubital; 22:21 Follow up: Response: No adverse reaction Outcome: 20:28 Decision to Hospitalize by Provider. [facility] 22:20 Admitted to ER Hold. Please see [facility] for further documentation. 22:20 Condition: stable 22:20 Instructed on the need for admit. 02/12 09:24 Patient left the ED. hb Signatures: Dispatcher [employer] Argenis Conteh, RN RN Buster Green MD MD cha Hagler, Ervin eh Munoz, Edgar, TABLET COATER TABLET COATER em Itzel Hodgson RN RN bb Williams, Irene, RN RN iw Baxter, Heather, RN RN Payal Addison Winsy
[2019-02-11] MEDS ORDERED: PANTOPRAZOLE 40 MG INJ ONE (20:36)
[2019-02-11] MEDS ORDERED: ACETAMINOPHEN 500 MG TAB PO PRN (21:03)
[2019-02-11] MEDS ORDERED: ONDANSETRON 4 MG/2 ML VIAL IV PRN (21:03)
--- NOTE | 2019-02-11 21:08 | P.HP ---
Certification for Inpatient Patient admitted to: Inpatient With expected LOS: >2 Midnights Patient will require the following post-hospital care: None Practitioner: I am a practitioner with admitting privileges, knowledge of patient current condition, hospital course, and medical plan of care. Services: Services provided to patient in accordance with Admission requirements found in Title 42 Section 412.3 of the Code of Federal Regulations Patient History Date of Service: 02/11/19 Reason for admission: Failure to thrive History of Present Illness: 78-year-old female with past medical history of HTN , NIDDM , Pancreatitis , HLD, CHRONIC PAIN, ARTHRITIS, NEUROPATHY, CAD s/p Stent And history of atrial fibrillation was brought to the ER with altered level of consciousness and failure to thrive. The patient is a poor historian. hence most of the history is obtained from the chart review and talking with the ER physician. [facility] was [facility] and had an endoscopy which showed severe esophagitis and possible chronic ulceration and was started on PPI and was discharged home. EMS was called today for altered level of consciousness and patient unable to take care of herself. patient was admitted for stabilization and for possible placement . Allergies codeine Adverse Reaction (Mild, Verified 10/12/18 20:11) Rash propoxyphene HCl [From Darvon] Adverse Reaction (Verified 10/12/18 20:11) Rash Home medications list reviewed: Yes Home Medications: Aspirin 1 tab PO DAILY 10/03/18 Atorvastatin Calcium 10 mg PO DAILY 10/03/18 Cetirizine HCl [Zyrtec] 10 mg PO BID 10/03/18 Furosemide 20 mg PO BID 10/03/18 Metoprolol Tartrate 25 mg PO BID 10/03/18 Omeprazole [Prilosec] 40 mg PO BID 10/03/18 ALPRAZolam [Xanax*] 0.25 mg PO BID PRN #15 tab 10/07/18 Amlodipine Besylate 1 tab PO DAILY 11/10/18 Codeine/APAP [Tylenol #3*] 1 tab PO 6XD 11/10/18 Hydralazine [Apresoline*] 100 mg PO Q8H 11/10/18 Losartan Potassium 25 mg PO DAILY 11/10/18 Tamsulosin [Flomax*] 1 cap PO SEECOM 11/10/18 Zolpidem Tartrate 1 tab PO BEDTIME 11/10/18 glipiZIDE [Glipizide] 1 tab PO BID 11/10/18 Docusate Calcium [Surfak] 240 mg PO BID 7 Days cap 11/13/18 Meropenem [Merrem] 1 gm IV Q8HR #42 vial 11/13/18 Oxybutynin Chloride [Oxybutynin Chloride ER] 10 mg PO DAILY #14 tab.er.24 traMADol HCL [Ultram] 50 mg PO Q6H PRN #28 tab 11/13/18 Fluconazole 400 mg Ivpb [DIFLUCAN 400 MG/200 ML IV (Premix)*] 400 mg IV DAILY # 1 bag 11/23/18 - Past Medical/Surgical History Diabetic: Yes Past Medical History: Reviewed- Non-Contributory -: HTN -: NIDDM -: Pancreatitis -: HLD -: CHRONIC PAIN -: ARTHRITIS -: NEUROPATHY -: ACS -: CAD -: [place] -: Falls, recurrent -: AFIB Past Surgical History: Reviewed- Non-Contributory -: Hysterectomy -: Bladder suspension x3 -: Cholecystectomy -: Heart catheterization with stent -: ERCP with removal of stone -: Lithrotripsy -: Cystoscopy Psychosocial/ Personal History: Patient is . She has no children - Family History Family History: Reviewed- Non-Contributory - Family History Father -: Heart disease Brother -: Heart disease - Social History Smoking Status: Never smoker Alcohol use: No CD- Drugs: No Caffeine use: No Review of Systems is unable to be obtained Physical Examination - Vital Signs Temperature: 97.8 F Blood Pressure: 142/78 Pulse: 100 - Physical Exam General: Alert, Mild distress HEENT: Atraumatic, Normocephalic Neck: Supple Respiratory: Clear to auscultation bilaterally, Normal air movement Cardiovascular: Regular rate/rhythm, Normal S1 S2 Capillary refill: <2 Seconds Gastrointestinal: Soft and benign, W/out hepatosplenomegaly Musculoskeletal: No clubbing, No swelling Integumentary: No rashes Neurological: Other (Moves all limbs ) Lymphatics: No axilla or inguinal lymphadenopathy Urinary: Other (No bladder distension) External genitalia: Deferred Rectal: Deferred - Studies Laboratory Data (last 24 hrs) 02/11/19 19:40: Lipase 167 02/11/19 19:40: PT 13.6 H, INR 1.16 02/11/19 19:40: WBC 10.2, Hgb 11.3 L, Hct 34.8 L, Plt Count 567 H D 02/11/19 19:40: Sodium 139, Potassium 3.9, BUN 12, Creatinine 0.55, Glucose 116 H, Magnesium 2.0, Total Bilirubin 0.2, AST 17, ALT 20, Alkaline Phosphatase 124 H Assessment and Plan - Problems (Diagnosis) (1) Failure to thrive Current Visit: Yes Status: Acute (2) Altered mental status Current Visit: No Status: Acute (3) Coronary artery disease Current Visit: No Status: Chronic Qualifiers: Coronary Disease-Associated Artery/Lesion type: [place]ie ira artery Associated angina: without angina (4) Diabetes mellitus Current Visit: No Status: Chronic Qualifiers: Diabetes mellitus type: type 2 Diabetes mellitus terminal operator insulin use: with fpc use Diabetes mellitus complication status: without complication Qualified Code(s): E11.9 - Type 2 diabetes mellitus without complications; 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 (5) Hypertension Onset Date: 02/26/16 Current Visit: No Status: Chronic Qualifiers: Hypertension type: essential hypertension - Plan Failure to thrive Acute encephalopathy possibly due to UTI Diabetes Hypertension Hyperlipidemia History of atrial fibrillation CAD Recent history of GI bleed Dehydration Plan Monitor under telemetry Supportive measures IV rehydration Start on antibiotic empirically Wait for culture Insulin sliding scale Continue home medications and titrate as needed Antihypertensives titrated Continue Protonix and sucralfate Avoid NSAIDs Social service consult for possible placement GI/DVT prophylaxis Advanced directives full code - Advance Directives Does patient have a Living Will: Yes Does patient have a Durable POA for Healthcare: No Time Spent Managing Pts Care (In Minutes): 46
--- NOTE | 2019-02-11 21:16 | RAD REPORT ---
EXAM DESCRIPTION: CT - Head Brain Wo Cont - 02/11/2019 8:17 pm CLINICAL HISTORY: Transient alteration of awareness COMPARISON: CT head November 14 TECHNIQUE: Axial 5 mm thick images of the head were obtained without IV contrast. All CT scans are performed using dose optimization technique as appropriate and may include automated exposure control or mA/KV adjustment according to patient size. FINDINGS: No intracranial hemorrhage, mass, edema or shift of mid-line structures. No acute cortical based infarction. No cortical edema or sulcal effacement. No abnormal extra-axial fluid collections. Patient has underlying atrophy and chronic ischemic change. Atrophy is not substantially different. Ventricles are prominent and appear more pronounced than seen on the prior imaging. Some of this is d ue to a different image acquisition plane. No transependymal migration of CSF identified. Mastoid air cells and visualized portions of the paranasal sinuses are clear. No acute bony findings. IMPRESSION: No hemorrhage, mass or acute intracranial finding. Atrophy and chronic ischemic changes are present. Ventricles are prominent. Ventricles appear more pronounced than seen previously. This is probably due to a different image cecilio ne acquisition. Acute ventricular obstruction is doubtful. Correlation is needed to determine if patient's symptoms may be related to developing obstruction.
[2019-02-11] MEDS ORDERED: D50W 25 GM/50 ML SYRINGE/VIAL IV PRN (21:19)
[2019-02-11] MEDS ORDERED: GLUCAGON 1 MG/VIAL IM PRN (21:19)
[2019-02-11] MEDS ORDERED: HYDRALAZINE HCL 20 MG/ML VIAL IV PRN (21:19)
[2019-02-11 21:37] LABS: Thyroid Stimulating Hormone 5.13 uIU/mL (0.360-3.740)
[2019-02-11] MEDS ORDERED: CEFTRIAXONE 1 GM/NS 50 ML 1 GM/50 ML BAG IV SCH (22:00)
[2019-02-11] MEDS: NA CHLORIDE 0.9% 1,000 ML IV SCH (22:00)
[2019-02-11 22:33] VITALS: BMI 27.4
[2019-02-11] MEDS ORDERED: CEFTRIAXONE/SWI 1gm 1 GM/10 ML SYR ONE (22:42)
[2019-02-12 05:19] LABS: Absolute Lymphocytes (CBC) 1.1 K/uL (0.7-4.9); Basophils % 1.3 % (0-1.3); Hematocrit 26.9 % (36.0-45.0); Lymphocytes % 16.5 % (15.3-44.8); MPV 7.7 fL (7.6-11.3); RBC Red Blood Cell Count 3.06 M/uL (3.86-4.86)
[2019-02-12 05:55] LABS: ALT/SGPT 16 U/L (12-78); AST/SGOT 19 U/L (15-37); Albumin 1.5 g/dL (3.4-5.0); Alkaline Phosphatase 98 U/L (45-117); BUN Blood Urea Nitrogen 12 mg/dL (7-18); Bicarbonate 27 mmol/L (21-32); Bilirubin Total 0.2 mg/dL (0.2-1.0); Glucose Level 93 mg/dL (74-106); Magnesium 1.9 mg/dL (1.8-2.4); Phosphorus 2.5 mg/dL (2.5-4.9); Potassium 4.3 mmol/L (3.5-5.1); Protein, Total 5.6 g/dL (6.4-8.2); Sodium Level 140 mmol/L (136-145)
[2019-02-12] MEDS ORDERED: NA CHLORIDE 0.9% 1,000 ML ONE ×2 (06:20→08:47)
[2019-02-12] MEDS: PANTOPRAZOLE 40MG TABLET PO SCH ×2 (07:30→16:56)
[2019-02-12] MEDS: INSULIN -REGULAR HUMAN 50 UNIT/0.5 ML ML SQ SCH ×4 (07:30→21:00)
[2019-02-12] MEDS: SUCRALFATE 1 GM TABLET PO SCH ×4 (07:30→21:16)
[2019-02-12] MEDS: NA CHLORIDE 0.9% 1,000 ML IV SCH ×3 (08:00→18:00)
[2019-02-12] MEDS ORDERED: PANTOPRAZOLE 40 MG INJ ONE (08:47)
[2019-02-12] MEDS ORDERED: SUCRALFATE 1 GM TABLET ONE (08:47)
--- NOTE | 2019-02-12 10:17 | RAD REPORT ---
EXAM DESCRIPTION: CT - Chest Abd Pelvis Wo Con - 02/12/2019 3:41 am CLINICAL HISTORY: Abdominal distention;Chest pain COMPARISON: 02/08/2019 TECHNIQUE: CT of the chest, abdomen and pelvis performed without IV contrast. Suboptimal evaluation of the vasculature, solid organs, and soft tissues due to lack of IV contrast. Motion artifact. FINDINGS: Chest: Thyroid: No abnormalities of the visualized thyroid. Great Vessels: Great vessels have normal anatomic configuration. Thoracic Aorta: Aneurysmal dilatation of the ascending thoracic aorta measuring 4.2 cm. Atherosclerot ic vascular calcification. Pulmonary arteries: Enlargement main pulmonary artery could be seen with pulmonary arterial hypertens ion. Heart: Coronary artery atherosclerosis. No cardiomegaly or significant pericardial effusion. Lymph Nodes: No enlarged mediastinal lymph nodes identified. Esophagus: No abnormalities of the esophagus identified Other: No additional findings. Lungs: Minimal bibasilar compressive atelectasis. Pleura: Trace bilateral pleural effusions. No pneumothorax. Trachea/Airways: No acute abnormality of the trachea. Abdomen: Liver: The liver has normal size and density. Stable pneumobilia. Gallbladder: Prior cholecystectomy. Spleen, Pancreas, and Adrenal Glands: The spleen, pancreas, and adrenal glands are unremarkable. Kidneys: The kidneys have normal size without evidence of hydronephrosis. 7 mm nonobstructing jarad culus in the right renal pelvis. Minimal residual excreted contrast noted in the collecting system. Vasculature: Aortoiliac atherosclerosis. IVC is unremarkable. Stomach: The stomach and duodenum have normal course. Other: No free intraperitoneal air. Stable postoperative appearance of the hernia repair in the rig ht anterior abdominal wall. No free fluid or lymphadenopathy. Pelvis: Bladder: Punctate calculi layering in the urinary bladder. Small focus of air likely related to rec ent catheterization. Bowel: No dilated loops of large or small bowel. Large amount of stool predominantly in the descend ing and sigmoid colon as well as the rectum. Appendix: Not identified. Pelvis: Prior hysterectomy. Bones: Degenerative endplate spondylosis throughout the spine. IMPRESSION: 1. Trace bilateral pleural effusions with minimal bibasilar compressive atelectasis. 2. Coronary artery atherosclerosis. 3. 4.2 cm ascending thoracic aortic aneurysm. Follow-up in 12 months recommended. 4. Nonobstructing right nephrolithiasis. 5. Punctate layering calculi in the urinary bladder again identified. 6. Large amount of stool predominantly in the descending colon, sigmoid colon, and rectum. This exam was performed according to our departmental dose-optimization program, which includes autom ated exposure control, adjustment of the mA and/or kV according to patient size and/or use of iterati ve reconstruction technique. 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 The interpreting radiologist is f ully responsible for the content of the report.
--- NOTE | 2019-02-12 10:42 | P.PN ---
Subjective Date of Service: 02/12/19 Chief Complaint: Failure to thrive Subjective: No new changes, C/O voiced (c/o of tiredness , refusing to move right leg -pt with hx of atrial fib , recent GIB , CAD hx admitted for failure to thrive and confusion at home -notes with blisters on right foot , unable to recall if recent falls) Review of Systems is unable to be obtained Physical Examination - Vital Signs Temperature: 97.5 F Blood Pressure: 109/54 Pulse: 76 Respirations: 21 Pulse Ox (%): 96 - Physical Exam General: Oriented x2, Disheveled, Confused HEENT: Atraumatic, Normocephalic, PERRLA Neck: 2+ carotid pulse no bruit, JVD not distended Respiratory: Clear to auscultation bilaterally, Normal air movement Cardiovascular: Normal pulses, Regular rate/rhythm, Normal S1 S2 Gastrointestinal: Normal bowel sounds, Soft and benign Musculoskeletal: Tenderness (abnormal flexed RLE ) Integumentary: Rash(es), Pressure ulcer (with granulation over scaral area , blisters on right foot ) - Studies Laboratory Data (last 24 hrs) 02/11/19 19:40: Lipase 167 02/11/19 19:40: PT 13.6 H, INR 1.16 02/11/19 19:40: WBC 10.2, Hgb 11.3 L, Hct 34.8 L, Plt Count 567 H D 02/11/19 19:40: Sodium 139, Potassium 3.9, BUN 12, Creatinine 0.55, Glucose 116 H, Magnesium 2.0, Total Bilirubin 0.2, AST 17, ALT 20, Alkaline Phosphatase 124 H Medications List Reviewed: Yes Assessment & Plan - Problems (Diagnosis) (1) Altered mental status Current Visit: No Status: Acute Discharge Plan: [facility] - Code Status/Comfort Care Code Status: Full Code Physician Review: Patient Assessed, Agree with Above Assessment and Plan Physician Review Additional Text: # Metabolic Encephalopathy - may be due to infectious etiology -follow UA for r/o UTI - may need seroquel # Right hip pain - will obtain xray ot hip and knee to r/o fracture -obtain uric acid level to r/o gouty arthritis despite no overt erythema over knee # Atrial fib -stable # Recnet GIB - s/p EGD at [facility], follow h/h trend # DVT prop- sc hep # Dispo - will need placement
[2019-02-12] MEDS ORDERED: FUROSEMIDE 40 MG/4 ML VIAL IV ONE (10:43)
--- NOTE | 2019-02-12 11:43 | RAD REPORT ---
EXAM DESCRIPTION: RAD - Hip Right 1 View - 02/12/2019 11:33 am CLINICAL HISTORY: Right hip pain FINDINGS: Limited one view frog-leg obtained. Patient refused additional images. No gross fracture or dislocation A February 08 CAT scan demonstrates a moderate right hip joint effusion
--- NOTE | 2019-02-12 13:48 | EKG ---
Test Date: 2019-02-11 Test Time: 19:15:39 Shaker Operator: POP MEASUREMENT RESULTS: Intervals: Rate: 114 LA: 134 QRSD: 76 QT: 334 QTc: 460 Malcolm: P: 21 LA: 134 QRS: 29 T: -61 INTERPRETIVE STATEMENTS: Sinus tachycardia Nonspecific ST and T wave abnormality Abnormal ECG Compared to ECG 11/13/2018 20:09:16 Myocardial infarct finding no longer present Possible ischemia no longer present ST (T wave) deviation still present Electronically Signed On 02-12-19 13:46:30 ROUGH RIB GRADER by Christoph Houser
[2019-02-12] MEDS: MORPHINE 2 MG/ML SYR IV PRN ×2 (15:38→19:30)
[2019-02-12] MEDS: GLUCERNA SHAKE 237 ML CAN PO SCH (21:00)
[2019-02-12] MEDS: JUVEN PACKET PO SCH (21:00)
[2019-02-12] MEDS: CEFTRIAXONE/SWI 1gm 1 GM/10 ML SYR IV SCH (21:16)
[2019-02-12] MEDS: LORAZEPAM 0.5 MG TABLET PO PRN (21:19)
[2019-02-13] MEDS: MORPHINE 2 MG/ML SYR IV PRN ×3 (01:09→10:00)
[2019-02-13] MEDS: NA CHLORIDE 0.9% 1,000 ML IV SCH ×5 (02:00→23:35)
[2019-02-13 06:41] LABS: Absolute Lymphocytes (CBC) 1.7 K/uL (0.7-4.9); Basophils % 1.3 % (0-1.3); Hematocrit 28.1 % (36.0-45.0); Lymphocytes % 27.9 % (15.3-44.8); MPV 8.3 fL (7.6-11.3)
[2019-02-13 06:43] LABS: ALT/SGPT 15 U/L (12-78); AST/SGOT 11 U/L (15-37); Albumin 1.7 g/dL (3.4-5.0); Alkaline Phosphatase 100 U/L (45-117); BUN Blood Urea Nitrogen 18 mg/dL (7-18); Bicarbonate 29 mmol/L (21-32); Bilirubin Total 0.2 mg/dL (0.2-1.0); Glucose Level 94 mg/dL (74-106); Potassium 3.9 mmol/L (3.5-5.1); Protein, Total 5.8 g/dL (6.4-8.2); Sodium Level 142 mmol/L (136-145)
[2019-02-13] MEDS: INSULIN -REGULAR HUMAN 50 UNIT/0.5 ML ML SQ SCH ×4 (07:30→22:07)
[2019-02-13] MEDS: SUCRALFATE 1 GM TABLET PO SCH ×4 (08:05→22:09)
[2019-02-13] MEDS: PANTOPRAZOLE 40MG TABLET PO SCH ×2 (08:05→17:05)
[2019-02-13] MEDS: JUVEN PACKET PO SCH ×2 (08:06→22:09)
[2019-02-13] MEDS: GLUCERNA SHAKE 237 ML CAN PO SCH ×2 (08:06→22:09)
[2019-02-13] MEDS ORDERED: POTASSIUM 25 MEQ EFFERV TAB PO ONE (09:00)
[2019-02-13] MEDS ORDERED: ALPRAZOLAM 0.25 MG TABLET PO PRN (10:05)
--- NOTE | 2019-02-13 10:11 | P.PN ---
Subjective Date of Service: 02/13/19 Chief Complaint: Failure to thrive Subjective: No new changes (still hip pain , refusing to move hip) Review of Systems is unable to be obtained Physical Examination - Vital Signs Temperature: 97.1 F Blood Pressure: 119/71 Pulse: 88 Respirations: 20 Pulse Ox (%): 92 - Physical Exam General: Alert, Confused HEENT: Atraumatic, Normocephalic Neck: Supple, 2+ carotid pulse no bruit Respiratory: Clear to auscultation bilaterally, Normal air movement Cardiovascular: No edema, Normal pulses Gastrointestinal: Normal bowel sounds, Soft and benign Musculoskeletal: Tenderness (right hip ) Neurological: Cranial nerves 3-12 intact, Abnormal gait - Studies Laboratory Last Values WBC 6.0 K/uL (4.3-10.9) 02/13/19 05:29 RBC 3.20 M/uL (3.86-4.86) L 02/13/19 05:29 Hgb 9.0 g/dL (12.0-15.0) L 02/13/19 05:29 Hct 28.1 % (36.0-45.0) L 02/13/19 05:29 MCV 87.8 fL (80-100) 02/13/19 05:29 MCH 28.2 pg (27.0-35.0) 02/13/19 05:29 MCHC 32.1 g/dL (32.0-36.0) 02/13/19 05:29 RDW 17.9 % (12.1-15.2) H 02/13/19 05:29 Plt Count 446 K/uL (152-406) H 02/13/19 05:29 MPV 8.3 fL (7.6-11.3) 02/13/19 05:29 Neutrophils % 56.6 % (41.7-73.7) 02/13/19 05:29 Lymphocytes % 27.9 % (15.3-44.8) 02/13/19 05:29 Monocytes % 11.5 % (3.3-12.3) 02/13/19 05:29 Eosinophils % 2.7 % (0-4.4) 02/13/19 05:29 Basophils % 1.3 % (0-1.3) 02/13/19 05:29 Absolute Neutrophils 3.4 K/uL (1.8-8.0) 02/13/19 05:29 Absolute Lymphocytes 1.7 K/uL (0.7-4.9) 02/13/19 05:29 Absolute Monocytes 0.7 K/uL (0.1-1.3) 02/13/19 05:29 Absolute Eosinophils 0.2 K/uL (0-0.5) 02/13/19 05:29 Absolute Basophils 0.1 K/uL (0-0.5) 02/13/19 05:29 PT 13.6 SECONDS (9.5-12.5) H 02/11/19 19:40 INR 1.16 02/11/19 19:40 Sodium 142 mmol/L (136-145) 02/13/19 05:29 Potassium 3.9 mmol/L (3.5-5.1) 02/13/19 05:29 Chloride 108 mmol/L (98-107) H 02/13/19 05:29 Carbon Dioxide 29 mmol/L (21-32) 02/13/19 05:29 BUN 18 mg/dL (7-18) 02/13/19 05:29 Creatinine 0.51 mg/dL (0.55-1.3) L 02/13/19 05:29 Estimated GFR > 90 mL/min (=/>90) 02/13/19 05:29 Glucose 94 mg/dL (74-106) 02/13/19 05:29 POC Glucose 93 mg/dl (65-120) 02/13/19 07:43 Calcium 9.8 mg/dL (8.5-10.1) 02/13/19 05:29 Phosphorus 2.5 mg/dL (2.5-4.9) 02/12/19 05:00 Magnesium 1.9 mg/dL (1.8-2.4) 02/12/19 05:00 Total Bilirubin 0.2 mg/dL (0.2-1.0) 02/13/19 05:29 Direct Bilirubin 0.1 mg/dL (0-0.2) 02/11/19 19:40 AST 11 U/L (15-37) L 02/13/19 05:29 ALT 15 U/L (12-78) 02/13/19 05:29 Alkaline Phosphatase 100 U/L (45-117) 02/13/19 05:29 Rapid Troponin I < 0.02 ng/mL (0.0-0.045) 02/11/19 19:40 NT-Pro-B Natriuret Pep 1429 pg/mL (<450) H 02/11/19 19:40 Serum Total Protein 5.8 g/dL (6.4-8.2) L 02/13/19 05:29 Albumin 1.7 g/dL (3.4-5.0) L 02/13/19 05:29 Globulin 4.1 g/dL (2.3-3.5) H 02/13/19 05:29 Albumin/Globulin Ratio 0.4 (1.1-1.8) L 02/13/19 05:29 Lipase 167 U/L (73-393) 02/11/19 19:40 TSH 5.130 uIU/mL (0.360-3.740) H 02/11/19 19:40 Free T4 1.39 ng/dL (0.76-1.46) 02/11/19 19:40 Medications List Reviewed: Yes Assessment & Plan - Problems (Diagnosis) (1) Altered mental status Current Visit: No Status: Acute Physician Review: Patient Assessed, Agree with Above Assessment and Plan Physician Review Additional Text: # Metabolic Encephalopathy - persistent - will start low dose seroquel qhs - may be due to infectious etiology -ua neg for uti , right hip with effusion on xray , will obtain ct hip now # Right hip pain - with effusion , obtain CT hip - start empirical steroids and colchicine and follow # Atrial fib -stable # Recent GIB - s/p EGD at [facility], restart PPI and sucrafate # Anemia - h/h trending down with IVF, obtain stool for occult blood # DVT prop- sc hep # Dispo - will need placement
[2019-02-13 10:55] LABS: Urine Appearance CLEAR; Urine Bilirubin NEGATIVE (NEG); Urine Blood NEGATIVE (NEG); Urine Color YELLOW; Urine Glucose NEGATIVE (NEG); Urine Protein NEGATIVE (NEG); Urine Specific Gravity 1.015 (1.005-1.030); Urine Urobilinogen 0.2 mg/dL (0.2-1.0)
[2019-02-13] MEDS: LIDOCAINE 4% PATCH TOP SCH (11:27)
[2019-02-13] MEDS: predniSONE 20 MG TAB PO SCH ×2 (11:27→22:08)
[2019-02-13] MEDS: COLCHICINE 0.6 MG TAB PO SCH ×2 (11:27→22:08)
[2019-02-13 11:37] LABS: Urine Bacteria <20 /HPF (<20); Urine Microscopic Reflex ORDER UMIC; Urine RBC <5 /HPF (NONE SEEN)
[2019-02-13 11:38] LABS: Urine Culture Reflex Order REFLEXED
--- NOTE | 2019-02-13 12:29 | RAD REPORT ---
EXAM DESCRIPTION: CT - Hip Right Wo Con - 02/13/2019 12:07 pm CLINICAL HISTORY: right hip pain and effusion on xray COMPARISON: Single view right hip February 12, CT imaging February 08 TECHNIQUE: Axial 2 millimeter thick images of the right hemipelvis and right hip joint obtained. No oral or IV contrast administered. Sagittal and coronal reformatted images were generated and reviewed . The CT scan was performed using dose optimization techniques as appropriate to a performed exam incl uding one or more of the following: Automated exposure control, adjustment of the mA and/or kV accord ing to patient size (this includes techniques or standardized protocols for targeted exams where dose is matched to indication/reason for exam) and use of iterative reconstruction technique. FINDINGS: Joint effusion seen along the lateral margin of the right femoral head and neck the is sti ll evident. This is better imaged on the contrast-enhanced February 08 study. No evidence for progr ession. No periarticular mass or hematoma. No suspicious soft tissue finding identifiable. No fracture of the proximal femur identified. No dislocation of the femoral head. There is no AVN or suspicious femoral head finding. No abnormal quantity of fluid between the femoral head and acetabulu m. There are mild degenerative changes along the superior acetabular rim. IMPRESSION: Small right hip joint effusion along the lateral margin of the right femoral head and ne ck still evident. Volume of joint fluid has not changed. No fracture or acute right hip joint bone finding. No periarticular mass, hematoma or other significa nt finding.
[2019-02-13 12:30] LABS: Ferritin 185.7 ng/mL (8-388)
[2019-02-13] MEDS: CEFTRIAXONE/SWI 1gm 1 GM/10 ML SYR IV SCH (22:08)
[2019-02-13] MEDS: FUROSEMIDE 20 MG TABLET PO SCH (22:09)
[2019-02-13] MEDS: QUETIAPINE 25 MG TAB PO SCH (22:11)
[2019-02-14] MEDS: PANTOPRAZOLE 40MG TABLET PO SCH (05:08)
[2019-02-14 05:46] LABS: Absolute Lymphocytes (CBC) 0.6 K/uL (0.7-4.9); Basophils % 0.1 % (0-1.3); Hematocrit 27.5 % (36.0-45.0); Lymphocytes % 12.3 % (15.3-44.8); MPV 7.5 fL (7.6-11.3); RBC Red Blood Cell Count 3.14 M/uL (3.86-4.86)
[2019-02-14 05:59] LABS: BUN Blood Urea Nitrogen 28 mg/dL (7-18); Bicarbonate 28 mmol/L (21-32); Glucose Level 185 mg/dL (74-106); Potassium 4.8 mmol/L (3.5-5.1); Sodium Level 139 mmol/L (136-145)
[2019-02-14] MEDS: INSULIN -REGULAR HUMAN 50 UNIT/0.5 ML ML SQ SCH ×4 (07:30→20:21)
[2019-02-14] MEDS ORDERED: HOME MED 1 EA UNK (Losartan Potassium [Losartan Potassium] 100 MG) PO SCH (09:00)
[2019-02-14] MEDS ORDERED: HOME MED 1 EA UNK (Omeprazole [Omeprazole] 20 MG) PO SCH (09:00)
[2019-02-14] MEDS: GLUCERNA SHAKE 237 ML CAN PO SCH ×2 (09:00→20:22)
[2019-02-14] MEDS: JUVEN PACKET PO SCH ×2 (09:00→20:22)
[2019-02-14] MEDS: LOSARTAN POTASSIUM 50 MG TABLET PO SCH (09:22)
[2019-02-14] MEDS: predniSONE 20 MG TAB PO SCH ×2 (09:22→20:21)
[2019-02-14] MEDS: SUCRALFATE 1 GM TABLET PO SCH ×4 (09:22→20:20)
[2019-02-14] MEDS: LIDOCAINE 4% PATCH TOP SCH (09:22)
[2019-02-14] MEDS: AMLODIPINE 10 MG TAB PO SCH (09:22)
[2019-02-14] MEDS: FUROSEMIDE 20 MG TABLET PO SCH ×2 (09:22→20:21)
[2019-02-14] MEDS: METOPROLOL TAR 25 MG TAB PO SCH (09:22)
[2019-02-14] MEDS: COLCHICINE 0.6 MG TAB PO SCH ×2 (09:23→20:20)
[2019-02-14] MEDS: NA CHLORIDE 0.9% 1,000 ML IV SCH (09:23)
--- NOTE | 2019-02-14 10:51 | P.PN ---
Subjective Date of Service: 02/14/19 Chief Complaint: Failure to thrive Subjective: No new changes (still refusing to have right leg moved , repeately screaming at evry attempt -more conversant today) Review of Systems Unremarkable Physical Examination - Vital Signs Temperature: 98 F Blood Pressure: 132/69 Pulse: 82 Respirations: 18 Pulse Ox (%): 98 - Physical Exam General: Alert, Oriented x3 HEENT: Atraumatic, Normocephalic, PERRLA Neck: 2+ carotid pulse no bruit Cardiovascular: No edema, Normal pulses, Regular rate/rhythm, Normal S1 S2 Gastrointestinal: Normal bowel sounds, Soft and benign Musculoskeletal: Tenderness (abn flexed right LE) Neurological: Normal speech, Cranial nerves 3-12 intact, Abnormal strength (2+ LLE ) - Studies Laboratory Last Values WBC 5.2 K/uL (4.3-10.9) 02/14/19 05:29 RBC 3.14 M/uL (3.86-4.86) L 02/14/19 05:29 Hgb 9.0 g/dL (12.0-15.0) L 02/14/19 05:29 Hct 27.5 % (36.0-45.0) L 02/14/19 05:29 MCV 87.7 fL (80-100) 02/14/19 05:29 MCH 28.7 pg (27.0-35.0) 02/14/19 05:29 MCHC 32.7 g/dL (32.0-36.0) 02/14/19 05:29 RDW 17.7 % (12.1-15.2) H 02/14/19 05:29 Plt Count 385 K/uL (152-406) 02/14/19 05:29 MPV 7.5 fL (7.6-11.3) L 02/14/19 05:29 Neutrophils % 84.4 % (41.7-73.7) H 02/14/19 05:29 Lymphocytes % 12.3 % (15.3-44.8) L 02/14/19 05:29 Monocytes % 3.2 % (3.3-12.3) L 02/14/19 05:29 Eosinophils % 0.0 % (0-4.4) 02/14/19 05:29 Basophils % 0.1 % (0-1.3) 02/14/19 05:29 Absolute Neutrophils 4.4 K/uL (1.8-8.0) 02/14/19 05:29 Absolute Lymphocytes 0.6 K/uL (0.7-4.9) L 02/14/19 05:29 Absolute Monocytes 0.2 K/uL (0.1-1.3) 02/14/19 05:29 Absolute Eosinophils 0.0 K/uL (0-0.5) 02/14/19 05:29 Absolute Basophils 0.0 K/uL (0-0.5) 02/14/19 05:29 PT 13.6 SECONDS (9.5-12.5) H 02/11/19 19:40 INR 1.16 02/11/19 19:40 Sodium 139 mmol/L (136-145) 02/14/19 05:29 Potassium 4.8 mmol/L (3.5-5.1) 02/14/19 05:29 Chloride 108 mmol/L (98-107) H 02/14/19 05:29 Carbon Dioxide 28 mmol/L (21-32) 02/14/19 05:29 BUN 28 mg/dL (7-18) H 02/14/19 05:29 Creatinine 0.46 mg/dL (0.55-1.3) L 02/14/19 05:29 Estimated GFR > 90 mL/min (=/>90) 02/14/19 05:29 Glucose 185 mg/dL (74-106) H 02/14/19 05:29 POC Glucose 166 mg/dl (65-120) H 02/14/19 08:10 Calcium 10.1 mg/dL (8.5-10.1) 02/14/19 05:29 Phosphorus 2.5 mg/dL (2.5-4.9) 02/12/19 05:00 Magnesium 1.9 mg/dL (1.8-2.4) 02/12/19 05:00 Iron 28.0 ug/dL (50-170) L 02/13/19 11:25 TIBC 182 ug/dL (250-460) L 02/13/19 11:25 Transferrin 130 mg/dL (200-360) L 02/13/19 11:25 Transferrin % Sat 15.4 % (20.0-50.0) L 02/13/19 11:25 Ferritin 185.7 ng/mL (8-388) 02/13/19 11:25 Total Bilirubin 0.2 mg/dL (0.2-1.0) 02/13/19 05:29 Direct Bilirubin 0.1 mg/dL (0-0.2) 02/11/19 19:40 AST 11 U/L (15-37) L 02/13/19 05:29 ALT 15 U/L (12-78) 02/13/19 05:29 Alkaline Phosphatase 100 U/L (45-117) 02/13/19 05:29 Rapid Troponin I < 0.02 ng/mL (0.0-0.045) 02/11/19 19:40 NT-Pro-B Natriuret Pep 1429 pg/mL (<450) H 02/11/19 19:40 Serum Total Protein 5.8 g/dL (6.4-8.2) L 02/13/19 05:29 Albumin 1.7 g/dL (3.4-5.0) L 02/13/19 05:29 Globulin 4.1 g/dL (2.3-3.5) H 02/13/19 05:29 Albumin/Globulin Ratio 0.4 (1.1-1.8) L 02/13/19 05:29 Lipase 167 U/L (73-393) 02/11/19 19:40 TSH 5.130 uIU/mL (0.360-3.740) H 02/11/19 19:40 Free T4 1.39 ng/dL (0.76-1.46) 02/11/19 19:40 Urine Color Yellow 02/13/19 10:25 Urine Appearance Clear 02/13/19 10:25 Urine pH 6.0 (5.0-7.0) 02/13/19 10:25 Ur Specific [place] 1.015 (1.005-1.030) 02/13/19 10:25 Urine Ketones Negative (NEG) 02/13/19 10:25 Urine Blood Negative (NEG) 02/13/19 10:25 Urine Nitrite Negative (NEG) 02/13/19 10:25 Urine Bilirubin Negative (NEG) 02/13/19 10:25 Urine Urobilinogen 0.2 mg/dL (0.2-1.0) 02/13/19 10:25 Ur Leukocyte Esterase Trace (NEG) H 02/13/19 10:25 Urine RBC <5 /HPF (NONE SEEN) 02/13/19 10:25 Urine WBC 5-10 /HPF (<5) H 02/13/19 10:25 Ur Squamous Epith Cells 5-10 /HPF (NONE SEEN) H 02/13/19 10:25 Ur Urothelial Cells Cancelled 02/13/19 10:25 Calcium Oxalate Crystal Cancelled 02/13/19 10:25 Uric Acid Crystals Cancelled 02/13/19 10:25 Triple Phos Crystals Cancelled 02/13/19 10:25 Other Crystals Cancelled 02/13/19 10:25 Amorphous Sediment Cancelled 02/13/19 10:25 Glitter Cells Cancelled 02/13/19 10:25 Urine Bacteria <20 /HPF (<20) 02/13/19 10:25 Hyaline Casts Cancelled 02/13/19 10:25 Fine Granular Casts Cancelled 02/13/19 10:25 Coarse Granular Casts Cancelled 02/13/19 10:25 Waxy Casts Cancelled 02/13/19 10:25 RBC Casts Cancelled 02/13/19 10:25 WBC Casts Cancelled 02/13/19 10:25 Urine Mucus Cancelled 02/13/19 10:25 Urine Other Cancelled 02/13/19 10:25 Urine Trichomonas Cancelled 02/13/19 10:25 Urine Yeast Cancelled 02/13/19 10:25 Ur Yeast w Hyphae Cancelled 02/13/19 10:25 Urine Yeast (Budding) Cancelled 02/13/19 10:25 Urine Sperm Cancelled 02/13/19 10:25 Urine Culture Reflexed Reflexed 02/13/19 10:25 Urine Total Volume Cancelled 02/13/19 10:25 Urine Glucose Negative (NEG) 02/13/19 10:25 Urine Total Protein Negative (NEG) 02/13/19 10:25 Medications List Reviewed: Yes Assessment & Plan - Problems (Diagnosis) (1) Altered mental status Current Visit: No Status: Acute Physician Review: Patient Assessed, Agree with Above Assessment and Plan Physician Review Additional Text: # Metabolic Encephalopathy - Improved , c/w low dose seroquel qhs - no evidence of infection -ua neg for uti , right hip with persistent effusion on Xray and CT # Right hip pain - with effusion , c/w empirical steroids and colchicine - will do pain meds and attempt to straighten leg today - appears to be non ambulatory since several weeks to months from poor tone of LE - will need NH - follow PT # Atrial fib -stable # Recent GIB - s/p EGD at [facility], restart PPI and sucrafate # Anemia - stable , low iron , start iron tabs and IV iron now # DVT prop- sc hep # Dispo - will need NH placement
[2019-02-14] MEDS: MORPHINE 2 MG/ML SYR IV PRN ×2 (12:06→20:22)
[2019-02-14] MEDS: QUETIAPINE 25 MG TAB PO SCH (20:21)
[2019-02-14 21:19] VITALS: O2SAT 98
[2019-02-14] MEDS: LORAZEPAM 0.5 MG TABLET PO PRN (22:22)
[2019-02-15 04:31] LABS: Absolute Lymphocytes (CBC) 0.7 K/uL (0.7-4.9); Basophils % 0.4 % (0-1.3); Hematocrit 25.4 % (36.0-45.0); Lymphocytes % 10.2 % (15.3-44.8); MPV 7.7 fL (7.6-11.3)
[2019-02-15 05:09] LABS: Blood Morphology Comment NOTED (NOT SEEN); Burr Cells 1+; Platelet Estimate ADEQ
[2019-02-15] MEDS: PANTOPRAZOLE 40MG TABLET PO SCH (05:14)
[2019-02-15] MEDS: INSULIN -REGULAR HUMAN 50 UNIT/0.5 ML ML SQ SCH ×4 (09:14→23:09)
[2019-02-15] MEDS: GLUCERNA SHAKE 237 ML CAN PO SCH ×2 (09:15→21:28)
[2019-02-15] MEDS: SOD FERRIC GLUC COMPLX/SUCROSE 250 MG in NA CHLORIDE 0.9% 250 ML IV SCH (09:15)
[2019-02-15] MEDS: JUVEN PACKET PO SCH ×2 (09:15→21:28)
[2019-02-15] MEDS: LIDOCAINE 4% PATCH TOP SCH (09:16)
[2019-02-15] MEDS: COLCHICINE 0.6 MG TAB PO SCH ×2 (09:16→21:22)
[2019-02-15] MEDS: SUCRALFATE 1 GM TABLET PO SCH ×4 (09:16→21:22)
[2019-02-15] MEDS: FERROUS GLUCONATE 324 MG TAB PO SCH (09:16)
[2019-02-15] MEDS: predniSONE 20 MG TAB PO SCH ×2 (09:16→21:28)
[2019-02-15] MEDS: LOSARTAN POTASSIUM 50 MG TABLET PO SCH (09:17)
[2019-02-15] MEDS: METOPROLOL TAR 25 MG TAB PO SCH (09:17)
[2019-02-15] MEDS: FUROSEMIDE 20 MG TABLET PO SCH ×2 (09:18→21:28)
--- NOTE | 2019-02-15 09:26 | P.PN ---
Subjective Date of Service: 02/15/19 Primary Care Provider: unknown Chief Complaint: Failure to thrive Subjective: Doing well Physical Examination - Vital Signs Temperature: 97.8 F Blood Pressure: 123/62 Pulse: 69 Respirations: 18 Pulse Ox (%): 98 - Physical Exam General: Alert, Cooperative HEENT: Atraumatic Neck: Supple Respiratory: Clear to auscultation bilaterally, Normal air movement Cardiovascular: Normal pulses, Regular rate/rhythm Gastrointestinal: Normal bowel sounds, Soft and benign, Non-distended - Studies Medications List Reviewed: Yes Assessment & Plan Discharge Plan: Other (Home versus fpc) Plan to discharge in: 24 Hours Physician Review Additional Text: Impression: Metabolic encephalopathy Right hip pain with effusion Chronic atrial fibrillation not on chronic anti coagulation therapy Recent GI bleed status post EGD Anemia of chronic disease with iron deficiency Hypertension 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 Patient on medication for agitation. No evidence of infection noted. Patient may have underlying dementia. Will discuss with patient and family concerning disposition. Family desires patient to go to a [facility] placement. Options may be limited. Will discuss with director of social work. Right hip pain with effusion: Continue with medication. Chronic atrial fibrillation not on chronic anti coagulation therapy: Continue medication. Patient not on chronic anti coagulation therapy Recent GI bleed status post EGD: Continue medication. Anemia of chronic disease with iron deficiency: Continue iron supplementation. Will monitor lab closely. Hypertension: Continue medication. Diabetes mellitus type 2 [id number]: Continue with Accu-Cheks and sliding scale. Time Spent Managing Pts Care (In Minutes): 55
[2019-02-15] MEDS: AMLODIPINE 10 MG TAB PO SCH (10:42)
[2019-02-15] MEDS: MORPHINE 2 MG/ML SYR IV PRN ×2 (11:10→18:54)
[2019-02-15] MEDS: QUETIAPINE 25 MG TAB PO SCH (21:00)
[2019-02-16] MEDS: MORPHINE 2 MG/ML SYR IV PRN ×3 (05:03→14:47)
[2019-02-16] MEDS: PANTOPRAZOLE 40MG TABLET PO SCH (05:08)
[2019-02-16 06:52] LABS: Absolute Lymphocytes (CBC) 0.6 K/uL (0.7-4.9); Basophils % 0.3 % (0-1.3); Hematocrit 27.7 % (36.0-45.0); Lymphocytes % 9.1 % (15.3-44.8); MPV 8.5 fL (7.6-11.3); RBC Red Blood Cell Count 3.14 M/uL (3.86-4.86)
[2019-02-16] MEDS: INSULIN -REGULAR HUMAN 50 UNIT/0.5 ML ML SQ SCH ×2 (08:24→11:30)
[2019-02-16] MEDS: LIDOCAINE 4% PATCH TOP SCH (08:24)
[2019-02-16] MEDS: predniSONE 20 MG TAB PO SCH (08:24)
[2019-02-16] MEDS: SUCRALFATE 1 GM TABLET PO SCH ×2 (08:24→13:00)
[2019-02-16] MEDS: METOPROLOL TAR 25 MG TAB PO SCH (08:24)
[2019-02-16] MEDS: COLCHICINE 0.6 MG TAB PO SCH (08:25)
[2019-02-16] MEDS: AMLODIPINE 10 MG TAB PO SCH (08:25)
[2019-02-16] MEDS: LOSARTAN POTASSIUM 50 MG TABLET PO SCH (08:25)
[2019-02-16] MEDS: FUROSEMIDE 20 MG TABLET PO SCH (08:25)
[2019-02-16] MEDS: GLUCERNA SHAKE 237 ML CAN PO SCH (08:26)
[2019-02-16] MEDS: JUVEN PACKET PO SCH (08:26)
[2019-02-16] MEDS: FERROUS GLUCONATE 324 MG TAB PO SCH (08:26)
[2019-02-16] MEDS: SOD FERRIC GLUC COMPLX/SUCROSE 250 MG in NA CHLORIDE 0.9% 250 ML IV SCH (08:43)
--- NOTE | 2019-02-16 09:24 | P.PN ---
Subjective Date of Service: 02/16/19 Primary Care Provider: unknown Chief Complaint: Failure to thrive Subjective: No new changes, No C/O voiced (still left hip pain) Review of Systems 10-point ROS is otherwise unremarkable Physical Examination - Vital Signs Temperature: 97.4 F Blood Pressure: 124/57 Pulse: 76 Respirations: 16 Pulse Ox (%): 95 - Physical Exam General: Alert, Oriented x3 HEENT: Atraumatic, Normocephalic, PERRLA Neck: Supple, 2+ carotid pulse no bruit Respiratory: Clear to auscultation bilaterally, Normal air movement Cardiovascular: Regular rate/rhythm, Normal S1 S2 Gastrointestinal: Normal bowel sounds, Soft and benign, Non-distended Musculoskeletal: Tenderness (right hip and knee ) Neurological: Normal speech, Normal strength at 5/5 x4 extr, Abnormal tone - Studies Laboratory Last Values WBC 7.1 K/uL (4.3-10.9) 02/16/19 05:43 RBC 3.14 M/uL (3.86-4.86) L 02/16/19 05:43 Hgb 9.3 g/dL (12.0-15.0) L 02/16/19 05:43 Hct 27.7 % (36.0-45.0) L 02/16/19 05:43 MCV 88.1 fL (80-100) 02/16/19 05:43 MCH 29.6 pg (27.0-35.0) 02/16/19 05:43 MCHC 33.6 g/dL (32.0-36.0) 02/16/19 05:43 RDW 18.4 % (12.1-15.2) H 02/16/19 05:43 Plt Count 455 K/uL (152-406) H 02/16/19 05:43 MPV 8.5 fL (7.6-11.3) D 02/16/19 05:43 Neutrophils % 86.2 % (41.7-73.7) H 02/16/19 05:43 Lymphocytes % 9.1 % (15.3-44.8) L 02/16/19 05:43 Monocytes % 3.8 % (3.3-12.3) 02/16/19 05:43 Eosinophils % 0.6 % (0-4.4) 02/16/19 05:43 Basophils % 0.3 % (0-1.3) 02/16/19 05:43 Absolute Neutrophils 6.1 K/uL (1.8-8.0) 02/16/19 05:43 Segmented Neutrophils 87 % (40-80) H 02/15/19 04:10 Band Neutrophils 3 % (0-1) H 02/15/19 04:10 Absolute Lymphocytes 0.6 K/uL (0.7-4.9) L 02/16/19 05:43 Lymphocytes 8 % (15-42) L 02/15/19 04:10 Monocytes 0 % (0-10) 02/15/19 04:10 Absolute Monocytes 0.3 K/uL (0.1-1.3) 02/16/19 05:43 Absolute Eosinophils 0.0 K/uL (0-0.5) 02/16/19 05:43 Absolute Basophils 0.0 K/uL (0-0.5) 02/16/19 05:43 Reactive Lymphocytes 2 % 02/15/19 04:10 [place] Cells 1+ 02/15/19 04:10 Morphology Comment Noted (NOT SEEN) 02/15/19 04:10 PT 13.6 SECONDS (9.5-12.5) H 02/11/19 19:40 INR 1.16 02/11/19 19:40 Sodium 139 mmol/L (136-145) 02/14/19 05:29 Potassium 4.8 mmol/L (3.5-5.1) 02/14/19 05:29 Chloride 108 mmol/L (98-107) H 02/14/19 05:29 Carbon Dioxide 28 mmol/L (21-32) 02/14/19 05:29 BUN 28 mg/dL (7-18) H 02/14/19 05:29 Creatinine 0.46 mg/dL (0.55-1.3) L 02/14/19 05:29 Estimated GFR > 90 mL/min (=/>90) 02/14/19 05:29 Glucose 185 mg/dL (74-106) H 02/14/19 05:29 POC Glucose 172 mg/dl (65-120) H 02/16/19 07:51 Calcium 10.1 mg/dL (8.5-10.1) 02/14/19 05:29 Phosphorus 2.5 mg/dL (2.5-4.9) 02/12/19 05:00 Magnesium 1.9 mg/dL (1.8-2.4) 02/12/19 05:00 Iron 28.0 ug/dL (50-170) L 02/13/19 11:25 TIBC 182 ug/dL (250-460) L 02/13/19 11:25 Transferrin 130 mg/dL (200-360) L 02/13/19 11:25 Transferrin % Sat 15.4 % (20.0-50.0) L 02/13/19 11:25 Ferritin 185.7 ng/mL (8-388) 02/13/19 11:25 Total Bilirubin 0.2 mg/dL (0.2-1.0) 02/13/19 05:29 Direct Bilirubin 0.1 mg/dL (0-0.2) 02/11/19 19:40 AST 11 U/L (15-37) L 02/13/19 05:29 ALT 15 U/L (12-78) 02/13/19 05:29 Alkaline Phosphatase 100 U/L (45-117) 02/13/19 05:29 Rapid Troponin I < 0.02 ng/mL (0.0-0.045) 02/11/19 19:40 NT-Pro-B Natriuret Pep 1429 pg/mL (<450) H 02/11/19 19:40 Serum Total Protein 5.8 g/dL (6.4-8.2) L 02/13/19 05:29 Albumin 1.7 g/dL (3.4-5.0) L 02/13/19 05:29 Globulin 4.1 g/dL (2.3-3.5) H 02/13/19 05:29 Albumin/Globulin Ratio 0.4 (1.1-1.8) L 02/13/19 05:29 Lipase 167 U/L (73-393) 02/11/19 19:40 TSH 5.130 uIU/mL (0.360-3.740) H 02/11/19 19:40 Free T4 1.39 ng/dL (0.76-1.46) 02/11/19 19:40 Urine Color Yellow 02/13/19 10:25 Urine Appearance Clear 02/13/19 10:25 Urine pH 6.0 (5.0-7.0) 02/13/19 10:25 Ur Specific [place] 1.015 (1.005-1.030) 02/13/19 10:25 Urine Ketones Negative (NEG) 02/13/19 10:25 Urine Blood Negative (NEG) 02/13/19 10:25 Urine Nitrite Negative (NEG) 02/13/19 10:25 Urine Bilirubin Negative (NEG) 02/13/19 10:25 Urine Urobilinogen 0.2 mg/dL (0.2-1.0) 02/13/19 10:25 Ur Leukocyte Esterase Trace (NEG) H 02/13/19 10:25 Urine RBC <5 /HPF (NONE SEEN) 02/13/19 10:25 Urine WBC 5-10 /HPF (<5) H 02/13/19 10:25 Ur Squamous Epith Cells 5-10 /HPF (NONE SEEN) H 02/13/19 10:25 Ur Urothelial Cells Cancelled 02/13/19 10:25 Calcium Oxalate Crystal Cancelled 02/13/19 10:25 Uric Acid Crystals Cancelled 02/13/19 10:25 Triple Phos Crystals Cancelled 02/13/19 10:25 Other Crystals Cancelled 02/13/19 10:25 Amorphous Sediment Cancelled 02/13/19 10:25 Glitter Cells Cancelled 02/13/19 10:25 Urine Bacteria <20 /HPF (<20) 02/13/19 10:25 Hyaline Casts Cancelled 02/13/19 10:25 Fine Granular Casts Cancelled 02/13/19 10:25 Coarse Granular Casts Cancelled 02/13/19 10:25 Waxy Casts Cancelled 02/13/19 10:25 RBC Casts Cancelled 02/13/19 10:25 WBC Casts Cancelled 02/13/19 10:25 Urine Mucus Cancelled 02/13/19 10:25 Urine Other Cancelled 02/13/19 10:25 Urine Trichomonas Cancelled 02/13/19 10:25 Urine Yeast Cancelled 02/13/19 10:25 Ur Yeast w Hyphae Cancelled 02/13/19 10:25 Urine Yeast (Budding) Cancelled 02/13/19 10:25 Urine Sperm Cancelled 02/13/19 10:25 Urine Culture Reflexed Reflexed 02/13/19 10:25 Urine Total Volume Cancelled 02/13/19 10:25 Urine Glucose Negative (NEG) 02/13/19 10:25 Urine Total Protein Negative (NEG) 02/13/19 10:25 Medications List Reviewed: Yes Assessment & Plan - Problems (Diagnosis) (1) Altered mental status Current Visit: No Status: Acute Physician Review: Patient Assessed, Agree with Above Assessment and Plan Physician Review Additional Text: # Met encephalopathy- resolved # Right hip /knee effusion - c/w pain regime # Debility- follow plan for placement /hospice eval ir not accepted to [facility] family unable to care for her at home
--- NOTE | 2019-02-16 14:27 | P.DS ---
Admission Date: 02/11/19 Discharge Date: 02/16/19 Primary Care Provider: unknown Disposition: HOSPICE-HOME Discharge Condition: GOOD Reason for Admission: Failure to thrive Consultations: none Procedures: CT hip: FINDINGS: Joint effusion seen along the lateral margin of the right femoral head and neck the is still evident. This is better imaged on the contrast- enhanced February 08 study. No evidence for progression. No periarticular mass or hematoma. No suspicious soft tissue finding identifiable. No fracture of the proximal femur identified. No dislocation of the femoral head. There is no AVN or suspicious femoral head finding. No abnormal quantity of fluid between the femoral head and acetabulum. There are mild degenerative changes along the superior acetabular rim. IMPRESSION: Small right hip joint effusion along the lateral margin of the right femoral head and neck still evident. Volume of joint fluid has not changed. No fracture or acute right hip joint bone finding. No periarticular mass, hematoma or other significant finding. CT head: FINDINGS: No intracranial hemorrhage, mass, edema or shift of mid-line structures. No acute cortical based infarction. No cortical edema or sulcal effacement. No abnormal extra-axial fluid collections. Patient has underlying atrophy and chronic ischemic change. Atrophy is not substantially different. Ventricles are prominent and appear more pronounced than seen on the prior imaging. Some of this is due to a different image acquisition plane. No transependymal migration of CSF identified. Mastoid air cells and visualized portions of the paranasal sinuses are clear. No acute bony findings. IMPRESSION: No hemorrhage, mass or acute intracranial finding. Atrophy and chronic ischemic changes are present. Ventricles are prominent. Ventricles appear more pronounced than seen previously. This is probably due to a different image plane acquisition. Acute ventricular obstruction is doubtful. CT abdomen FINDINGS: Chest: Thyroid: No abnormalities of the visualized thyroid. Great Vessels: Great vessels have normal anatomic configuration. Thoracic Aorta: Aneurysmal dilatation of the ascending thoracic aorta measuring 4.2 cm. Atherosclerotic vascular calcification. Pulmonary arteries: Enlargement main pulmonary artery could be seen with pulmonary arterial hypertension. Heart: Coronary artery atherosclerosis. No cardiomegaly or significant pericardial effusion. Lymph Nodes: No enlarged mediastinal lymph nodes identified. Esophagus: No abnormalities of the esophagus identified Other: No additional findings. Lungs: Minimal bibasilar compressive atelectasis. Pleura: Trace bilateral pleural effusions. No pneumothorax. Trachea/Airways: No acute abnormality of the trachea. Abdomen: Liver: The liver has normal size and density. Stable pneumobilia. Gallbladder: Prior cholecystectomy. Spleen, Pancreas, and Adrenal Glands: The spleen, pancreas, and adrenal glands are unremarkable. Kidneys: The kidneys have normal size without evidence of hydronephrosis. 7 mm nonobstructing calculus in the right renal pelvis. Minimal residual excreted contrast noted in the collecting system. Vasculature: Aortoiliac atherosclerosis. IVC is unremarkable. Stomach: The stomach and duodenum have normal course. Other: No free intraperitoneal air. Stable postoperative appearance of the hernia repair in the right anterior abdominal wall. No free fluid or lymphadenopathy. Pelvis: Bladder: Punctate calculi layering in the urinary bladder. Small focus of air likely related to recent catheterization. Bowel: No dilated loops of large or small bowel. Large amount of stool predominantly in the descending and sigmoid colon as well as the rectum. Appendix: Not identified. Pelvis: Prior hysterectomy. Bones: Degenerative endplate spondylosis throughout the spine. IMPRESSION: 1. Trace bilateral pleural effusions with minimal bibasilar compressive atelectasis. 2. Coronary artery atherosclerosis. 3. 4.2 cm ascending thoracic aortic aneurysm. Follow-up in 12 months recommended. 4. Nonobstructing right nephrolithiasis. 5. Punctate layering calculi in the urinary bladder again identified. 6. Large amount of stool predominantly in the descending colon, sigmoid colon, and rectum. Medical problem list: Metabolic encephalopathy Right hip pain with effusion Chronic atrial fibrillation not on chronic anti coagulation therapy Recent GI bleed status post EGD Anemia of chronic disease with iron deficiency Hypertension Diabetes mellitus type 2 non insulin dependent 4.2 cm ascending thoracic aortic aneurysm Brief History of Present Illness: 78-year-old female with multiple medical problems came in to the emergency room with altered mental status. Patient was not able to take care of herself. Failure to thrive was suspected. Patient admitted for further evaluation and treatment. Hospital Course: Patient presented with altered mental status likely secondary to metabolic encephalopathy. No infection was identified. Patient likely with underlying dementia. Workup included CT head unremarkable. Patient had not been taking care of herself at home. Patient was found to have right hip pain with effusion. Patient was started on medication for pain. At discharge options of care were addressed. Patient does not have any skilled facility placement days left. Patient will be discharged home with hospice. Patient will continue with current pain medication lidocaine patch to area of pain and gabapentin 100 mg 3 times a day as needed for pain. Prior to discharge patient agreed to hospice at home. Hospice at home will continued for pain management. Fall precautions in place. Patient with chronic atrial fibrillation not on chronic anti coagulation therapy. This has remained stable. At discharge she will continue with rate control medication metoprolol 25 mg daily. Patient with hypertension. This has remained stable. At discharge she will continue with metoprolol 25 mg daily, losartan 100 mg daily, and Norvasc 10 mg daily. Further adjustment can be done by her PCP. Patient with GERD. Patient with history of GI bleed. That is why she is not on chronic anti coalition therapy. At discharge she will continue with Carafate 1 g 4 times a day and Prilosec 20 mg daily. Patient with diabetes mellitus type 2. At discharge she will continue with glipizide 5 mg 1 pill twice daily. Recommend to maintain blood sugars less 140 fasting and less than 200 after meals. Further adjustment can be done by her PCP. Patient with hyperlipidemia. At discharge she will continue with Lipitor 10 mg daily. Patient with anxiety disorder. At discharge she will continue with Xanax 0.25 mg once daily as needed. Patient has 4.2 cm ascending thoracic aortic aneurysm. Recommend follow up with cardiology to further monitor. Recommend repeat ultrasound in 3-6 months to monitor progress. Vital Signs/Physical Exam: Temp Pulse Resp BP Pulse Ox 97.4 F 76 16 124/57 L 95 02/16/19 09:24 02/16/19 09:24 02/16/19 09:24 02/16/19 09:24 02/16/19 09:24 General: Alert, In no apparent distress, Oriented x3, Cooperative HEENT: Atraumatic Neck: Supple Respiratory: Clear to auscultation bilaterally, Normal air movement Cardiovascular: Normal pulses, Regular rate/rhythm Gastrointestinal: Normal bowel sounds, Soft and benign, Non-distended Neurological: Normal speech, Normal strength at 5/5 x4 extr, Normal tone Laboratory Data at Discharge: WBC 7.1 K/uL (4.3-10.9) 02/16/19 05:43 Hgb 9.3 g/dL (12.0-15.0) L 02/16/19 05:43 Hct 27.7 % (36.0-45.0) L 02/16/19 05:43 Plt Count 455 K/uL (152-406) H 02/16/19 05:43 PT 13.6 SECONDS (9.5-12.5) H 02/11/19 19:40 INR 1.16 02/11/19 19:40 Sodium 139 mmol/L (136-145) 02/14/19 05:29 Potassium 4.8 mmol/L (3.5-5.1) 02/14/19 05:29 BUN 28 mg/dL (7-18) H 02/14/19 05:29 Creatinine 0.46 mg/dL (0.55-1.3) L 02/14/19 05:29 Glucose 185 mg/dL (74-106) H 02/14/19 05:29 Phosphorus 2.5 mg/dL (2.5-4.9) 02/12/19 05:00 Magnesium 1.9 mg/dL (1.8-2.4) 02/12/19 05:00 Total Bilirubin 0.2 mg/dL (0.2-1.0) 02/13/19 05:29 AST 11 U/L (15-37) L 02/13/19 05:29 ALT 15 U/L (12-78) 02/13/19 05:29 Alkaline Phosphatase 100 U/L (45-117) 02/13/19 05:29 Lipase 167 U/L (73-393) 02/11/19 19:40 Home Medications: ALPRAZolam [Xanax*] 0.25 mg PO DAILY PRN 02/12/19 Amlodipine Besylate 10 mg PO DAILY 02/12/19 Atorvastatin Calcium 10 mg PO DAILY 02/12/19 Furosemide 20 mg PO BID 02/12/19 Gabapentin 100 mg PO TID 02/12/19 Glipizide [Glipizide ER] 5 mg PO BID 02/12/19 Losartan Potassium 100 mg PO DAILY 02/12/19 Metoprolol Tartrate 25 mg PO DAILY 02/12/19 Omeprazole 20 mg PO DAILY 02/12/19 Sucralfate [Carafate*] 1 gm PO QID 02/12/19 Zolpidem Tartrate [Ambien*] 5 mg PO BEDTIME PRN 02/12/19 Glucerna Shake [Glucerna*] 237 ml PO BID #60 can 12/31/19 Lidocaine 4% Patch [Lidoderm 5% Patch*] 1 patch TOP DAILY #30 patch 02/16/19 New Medications: Glucerna Shake [Glucerna*] 237 ml PO BID #60 can Lidocaine 4% Patch [Lidoderm 5% Patch*] 1 patch TOP DAILY #30 patch Patient Discharge Instructions: 1. Recommend follow up with PCP within 1 week to to follow up hospitalization. 2. Patient presented with altered mental status likely secondary to metabolic encephalopathy. No infection was identified. Patient likely with underlying dementia. Patient was found to have right hip pain with effusion. Patient was started on medication for pain. At discharge options of care were addressed. Patient does not have any skilled facility placement days left. Patient will be discharged home with hospice. Patient will continue with current pain medication lidocaine patch to area of pain and gabapentin 100 mg 3 times a day as needed for pain. Prior to discharge patient agreed to hospice at home. Hospice at home will continued for pain management. Fall precautions in place. 3. Patient with chronic atrial fibrillation not on chronic anti coagulation therapy. This has remained stable. At discharge she will continue with rate control medication metoprolol 25 mg daily. 4. Patient with hypertension. This has remained stable. At discharge she will continue with metoprolol 25 mg daily, losartan 100 mg daily, and Norvasc 10 mg daily. Further adjustment can be done by her PCP. 5. Patient with GERD. Patient with history of GI bleed. That is why she is not on chronic anti coalition therapy. At discharge she will continue with Carafate 1 g 4 times a day and Prilosec 20 mg daily. 6. Patient with diabetes mellitus type 2. At discharge she will continue with glipizide 5 mg 1 pill twice daily. Recommend to maintain blood sugars less 140 fasting and less than 200 after meals. Further adjustment can be done by her PCP. 7. Patient with hyperlipidemia. At discharge she will continue with Lipitor 10 mg daily. 8. Patient with anxiety disorder. At discharge she will continue with Xanax 0.25 mg once daily as needed. Diet: ADA Activity: Fall precautions Time spent managing pt's care (in minutes): 55
[2019-02-16 18:05] VITALS: BP 117/58; TEMP 97.1
== END 2019-02-16 17:19 | disposition hospice, home (50) | DRG 689 ==
LOC: ER 16:55 → ERHOLD 21:03 → 2ND 02-12 08:54
PROVIDERS: ADMIT Family Medicine; ATTEND Internal Medicine
DX: N39.0 Urinary tract infection, site not specified (principal); G92 Toxic encephalopathy; E44.1 Mild protein-calorie malnutrition; K86.1 Other chronic pancreatitis; Z68.27 Body mass index [BMI] 27.0-27.9, adult; I10 Essential (primary) hypertension; E77.9 Disorder of glycoprotein metabolism, unspecified; I25.10 Atherosclerotic heart disease of native coronary artery without angina pectoris; R62.7 Adult failure to thrive; Z79.4 Long term (current) use of insulin; E86.0 Dehydration; I48.91 Unspecified atrial fibrillation; M25.551 Pain in right hip; D50.9 Iron deficiency anemia, unspecified; I71.4 Abdominal aortic aneurysm, without rupture
CPT/HCPCS: 36415; 70450; 71045; 71250; 73700; 74176; 74177; 80048; 80053; 80076; 81003; 81015; 82550; 82728; 82947; 83540; 83690; 83735; 83880; 84100; 84439; 84443; 84466; 84484; 85025; 85610; 87086; 87088; 93005; 96361; 96374; 96375; 97161; 97530; 99284; 99285; C9113; J0696; J1940; J2270; J2405; J2916; J7030; J7512; Q9967